=== PATIENT | female | born 1950 | race Caucasian/White ===

== ENCOUNTER 2016-03-29 07:49 | Emergency (ER) | payer MEDICARE, OTHER ==
[~2016-03-29] VITALS: Ht 162.6 cm; Wt 114.3 kg
[~2016-03-29 07:49] MED LIST: AC500T PO; ACID1TAB5 PO; ALIS1TAB6 PO; ALPR.25T PO; ALPR0.254 PO; AMLO1TAB13 PO; APIX5TAB PO; ASP81CT; ATOR40TA70 PO; ATRV10T; AZIT500T PO; CHOL500044 PO; D50KC PO; DABI150C5 PO; DEXL60CA5 PO; DIPH25TA82 PO; DOXA2TAB2 PO; ESCT10T PO; FLC150T PO; FRSM40T; FURO20TA4 PO; FURO40TA4 PO; GFN600TCR PO; HYDR-3583 PO; KCL20TCR; LACT1CAP8 PO; LEVA1.25 IH; LEVO500T69 PO; LEVO75TA57 PO; LNS30CCR; LORA10TA7 PO; LVT.05T PO; MERO500V3 IV; METO-272 PO; METO-333 PO; METO100T2 PO; METO25TA PO; METO50TA2 PO; METO50TA7; MNTL10T PO; MONT5TAB11 PO; MTP100TCR; MTP50T PO; NF-ESOM40C PO; NF-VITD400; OLME40TA16 PO; OMEP-10; OXYC500S2 PO; POTA10CA43 PO; POTA20TA8 PO; PRD20T PO; RANI150C4 PO; RIVA20TA PO; SUCR1TAB PO; VANC10VI IV; VLS80C PO; WARF6TAB PO; WRF10T PO; WRF5T PO
--- OUTSIDE RECORDS SUMMARY | 2016-03-29 07:54 | XMS REPORT | Continuity of Care Document ---
Author Author [facility] Organization [facility] Address Unknown Phone Unavailable Care Team Providers Care Intelligence Chief Name Role Phone Francisco Hernandez PCP [phone] Source Comments Some departments are not documenting in the electronic medical record. If you do not see the information that you expected, contact Release of Information in the Health Information Management department at [phone] for further assistance in locating additional records.[facility] Active Allergies and Adverse Reactions Allergen Noted Date Severity Reactions Comments Codeine 10/20/2006 Allergy recorded in SMS: Codeine~Reactions: SWELLING/HIVES Morphine 10/20/2006 Allergy recorded in SMS: Morphine~Reactions: SWELLINGL/HIVES Penicillins 10/20/2006 Allergy recorded in SMS: PCN~Reactions: TONGUE SWELLING Tetanus Vaccines And 10/20/2006 Allergy recorded in SMS: Toxoid Tetanus Current Medications Not on file Active Problems Not on file Social History Tobacco Use Types Packs/Day Years Used Date Never Assessed Plan of Care Health Maintenance Due Date Last Done Comments Physical (Comprehensive) 1957 Exam Pertussis Vaccine 1960 Tetanus Vaccine 1966 Breast Cancer Screening 1989 Colorectal Cancer 12/04/1999 Screening Shingles Vaccine 2009 Osteoporosis Screening 2014 Prevnar/Pneumovax (#1) 2014 Influenza Vaccine 10/17/2015 Results from Last 3 Months Not on file
[2016-03-29 08:12] LABS: BASOPHILS # (AUTO) 0.1 10^3/uL (0.0-0.1); BASOPHILS % (AUTO) 1 % (0-10); EOSINOPHILS # (AUTO) 0.1 10^3/uL (0.0-0.3); EOSINOPHILS % (AUTO) 1 % (0-10); LYMPHOCYTES # (AUTO) 1.5 X 10^3 (1.0-4.0); LYMPHOCYTES % (AUTO) 14 % (12-44); MEAN CORPUSCULAR HEMOGLOBIN 31 PG (25-34); MEAN CORPUSCULAR HGB CONC 34 G/DL (32-36); MEAN CORPUSCULAR VOLUME 90 FL (80-99); MEAN PLATELET VOLUME 11.7 FL (7.4-10.4); MONOCYTES # (AUTO) 0.9 X 10^3 (0.0-1.0); MONOCYTES % (AUTO) 8 % (0-12); NEUTROPHILS # (AUTO) 8.4 X 10^3 (1.8-7.8); NEUTROPHILS % (AUTO) 77 % (42-75); PLATELET COUNT 199 10^3/uL (130-400); RED BLOOD COUNT 4.76 10^6/uL (4.35-5.85); RED CELL DISTRIBUTION WIDTH 12.7 % (10.0-14.5)
--- NOTE | 2016-03-29 08:22 | ED Cough/URI ---
General Chief Complaint: Respiratory Problems Stated Complaint: SOA Nursing Triage Note: AMBULATED TO ROOM 07 WITH CONT COUGH AND SOA STARTING LAST NOC. DENIES FEVER. PT STATES SHE DID NOT SLEEP LAST NOC. Source: patient Exam Limitations: no limitations History of Present Illness Time seen by provider: 08:17 Initial Comments The patient's a 65-year-old white female known to me. She has multiple medical problems. She reported that yesterday about noon she began to cough harshly and has continued to do so throughout the night. There is also past history of multiple pneumonias events, both bacterial and fungal. She is not aware of any fever. There has been no fever or chills. There is no sputum production. Timing/Duration: yesterday Severity/Quality: moderate, dry cough Prior Episodes/Possible Cause: frequent episodes Modifying Factors: Improves With Coughing Associated Symptoms: chest pain/soreness, cough, shortness of breath Allergies and Home Medications Allergies Coded Allergies: apixaban (Verified Allergy, Severe, HIVES, 03/29/16) olmesartan (Verified Allergy, Severe, HIVES, 03/29/16) doxycycline (Verified Allergy, Intermediate, HIVES, 10/24/15) SWELLING, HIVES Penicillins (Verified Allergy, Unknown, PT CAN TAKE KEFLEX, 11/21/06) Sulfa (Sulfonamide Antibiotics) (Verified Allergy, Unknown, 08/20/06) Tetanus Vaccines and Toxoid (Verified Allergy, Unknown, 11/21/06) codeine (Verified Allergy, Unknown, 11/21/06) levofloxacin (Unverified Allergy, Unknown, HIVES, 10/24/15) CAN TAKE LONG SHE ALSO TAKES BENADRYL morphine (Verified Allergy, Unknown, 08/20/06) Home Medications Alprazolam 0.25 Mg Tablet 0.25 MG PO Q6H PRN PRN ANXIETY (Reported) Cholecalciferol (Vitamin D3) 5,000 Unit Tablet 5,000 UNIT PO DAILY (Reported) Diphenhydramine Hcl 25 Mg Tablet 25 MG PO QID PRN PRN ALLERGIC REACTION ( Reported) Doxazosin Mesylate 2 Mg Tablet #60 1 MG PO BID Prescribed by: MONIKA DO on 10/28/151818 Ergocalciferol (Vitamin D2) 50,000 Unit Capsule 50,000 UNITS PO WEEK (Reported) TAKES EVERY WEDNESDAY Furosemide 20 Mg Tablet 20 MG PO BID PRN PRN FLUID (Reported) Metoprolol Tartrate 50 Mg Tablet 50 MG PO BID PRN PRN BLOOD PRESSURE (Reported) WILL HOLD IF BLOOD PRESSURE IS TOO LOW (BOTTOM NUMBER 80 OR BELOW) Metoprolol Tartrate 25 Mg Tablet #60 12.5 MG PO BID Prescribed by: MONIKA DO on 10/28/151818 Potassium Chloride 20 Meq Tab.er.prt 20 MEQ PO BID PRN PRN WITH LASIX (Reported ) Prednisone 20 Mg Tab #45 20 MG PO UD 60mg tid x2days, 40mg tid x2days, 20mg tid x2days, 20mg bid x2days, 10mg bid x2days, 10mg daily x 2days then stop Prescribed by: MONIKA DO on 10/28/151818 Ranitidine HCl 150 Mg Capsule #60 150 MG PO BID Prescribed by: MONIKA DO on 10/28/151818 Rivaroxaban 20 Mg Tablet #30 20 MG PO DAILY@0900 Prescribed by: MONIKA DO on 10/28/151818 Constitutional: see HPI EENTM: no symptoms reported Respiratory: cough short of breath Cardiovascular: no symptoms reported Gastrointestinal: no symptoms reported Genitourinary: no symptoms reported Musculoskeletal: no symptoms reported Skin: no symptoms reported Psychiatric/Neurological: No Symptoms Reported Hematologic/Lymphatic: No Symptoms Reported Immunological/Allergic: no symptoms reported Past Lnyiqjd-Tfpfxe-Zubmlo Hx Patient Social History Alcohol Use: Denies Use Recreational Drug Use: No 2nd Hand Smoke Exposure: No Recent Foreign Travel: No Contact w/Someone Who Travel: No Recent Infectious Disease Expo: No Recent Hopitalizations: No Immunizations Up To Date Date of Pneumonia Vaccine: Oct 16, 2014 Date of Influenza Vaccine: Dec 16, 2014 Seasonal Allergies Seasonal Allergies: Yes Surgeries HX Surgeries: Yes (LAP BAND ) Surgeries: Cardiac, Gallbladder, Hysterectomy Respiratory Hx Respiratory Disorders: Yes Respiratory Disorders: Pneumonia Cardiovascular Hx Cardiac Disorders: Yes (HX OF OPEN HEART SURGERY) Cardiac Disorders: Hypertension Neurological Hx Neurological Disorders: No Reproductive System Hx Reproductive Disorders: Yes Female Reproductive Disorders: Endometriosis Genitourinary Hx Genitourinary Disorders: No Gastrointestinal Hx Gastrointestinal Disorders: No Musculoskeletal Hx Musculoskeletal Disorders: No Endocrine Hx Endocrine Disorders: No HEENT HX ENT Disorders: No Cancer Hx Cancer: No Psychosocial Hx Psychiatric Problems: Yes Behavioral Health Disorders: Anxiety Integumentary HX Skin/Integumentary Disorder: No Blood Transfusions Hx Blood Disorders: No Family Medical History Significant Family History: Cancer, Hypertension, Renal Disease Family Medial History: FH: COPD (chronic obstructive pulmonary disease) 19 MOTHER Kidney disease 19 MOTHER Physical Exam Vital Signs Vital Sign - Last 12Hours 03/29/16 07:49 Temp 96.2 Pulse 87 Resp 20 B/P 170/98 Pulse Ox 96 O2 Delivery Room Air Capillary Refill : Less Than 3 Seconds General Appearance: mild distress moderate distress Eyes: Bilateral Eye Normal Inspection HEENT: normal ENT inspection Neck: full range of motion Respiratory: chest non-tender lungs clear normal breath sounds no respiratory distress no accessory muscle use Cardiovascular: other Gastrointestinal: normal bowel sounds non tender soft no organomegaly no pulsatile mass Extremities: normal range of motion non-tender normal inspection no pedal edema no calf tenderness normal capillary refill pelvis stable Neurologic/Psychiatric: press tender long goods II-XII nml as tested no motor/sensory deficits alert normal mood/affect oriented x 3 Skin: normal color warm/dry cyanosis cool diaphoresis damp Lymphatic: no adenopathy Progress/Results/Core Measures Results/Orders Lab Results Laboratory Tests Test 03/29/16 08:05 Range/Units Alanine Aminotransferase (ALT/SGPT) 15 0-55 U/L Albumin 3.7 3.2-4.5 G/DL Alkaline Phosphatase 105 40-136 U/L Anion Gap 12 5-14 MMOL/L Aspartate Amino Transf (AST/SGOT) 15 5-34 U/L BUN/Creatinine Ratio 13 Basophils # (Auto) 0.1 0.0-0.1 10^3/uL Basophils (%) (Auto) 1 0-10 % Blood Urea Nitrogen 14 7-18 MG/DL Calcium Level 9.8 8.5-10.1 MG/DL Carbon Dioxide Level 25 21-32 MMOL/L Chloride Level 102 98-107 MMOL/L Creatinine 1.04 0.60-1.30 MG/DL Eosinophils # (Auto) 0.1 0.0-0.3 10^3/uL Eosinophils (%) (Auto) 1 0-10 % Estimat Glomerular Filtration Rate 53 Glucose Level 119 H 70-105 MG/DL Hematocrit 43 35-52 % Hemoglobin 14.5 11.5-16.0 G/DL Lymphocytes # (Auto) 1.5 1.0-4.0 X 10^3 Lymphocytes (%) (Auto) 14 12-44 % Mean Corpuscular Hemoglobin 31 25-34 PG Mean Corpuscular Hemoglobin Concent 34 32-36 G/DL Mean Corpuscular Volume 90 80-99 FL Mean Platelet Volume 11.7 H 7.4-10.4 FL Monocytes # (Auto) 0.9 0.0-1.0 X 10^3 Monocytes (%) (Auto) 8 0-12 % Neutrophils # (Auto) 8.4 H 1.8-7.8 X 10^3 Neutrophils (%) (Auto) 77 H 42-75 % Platelet Count 199 130-400 10^3/uL Potassium Level 3.3 L 3.6-5.0 MMOL/L Red Blood Count 4.76 4.35-5.85 10^6/uL Red Cell Distribution Width 12.7 10.0-14.5 % Sodium Level 139 135-145 MMOL/L Total Bilirubin 0.7 0.1-1.0 MG/DL Total Protein 6.8 6.4-8.2 G/DL White Blood Count 11.0 4.3-11.0 10^3/uL Micro Results Microbiology 03/29/16 Influenza Types A,B Antigen (DOUG) - Final, Complete My Orders Orders-DALTON SALGUERO MD Cbc With Automated Diff (03/29/16 07:55) Comprehensive Metabolic Panel (03/29/16 07:55) Chest 1 View, Ap/Pa Only (03/29/16 07:55) Influenza A And B Antigens (03/29/16 08:44) Vital Signs/I&O Vital Sign - Last 12Hours 03/29/16 07:49 Temp 96.2 Pulse 87 Resp 20 B/P 170/98 Pulse Ox 96 O2 Delivery Room Air Blood Pressure Mean: 122 Departure Communication Progress Notes Chest x-ray was negative. Influenza a and B were negative. Discussed this with Dr. Do. Impression Impression: Primary Impression: URI/viral Disposition: 01 HOME, SELF-CARE Condition: Stable/Unchanged Departure-Patient Inst. Decision time for Depature: 09:33 Referrals: MONIKA DO MD (PCP/Family) Primary Care Physician Patient Instructions: Viral Upper Respiratory Infection, Adult (DC) Add. Discharge Instructions: All discharge instructions reviewed with patient and/or family. Voiced understanding. Plenty of fluids and rest. Throat lozenges as needed Tessalon pearls twice daily Scripts Benzonatate (Tessalon Perle)100 Mg [id number] Mg PO twice a day #20 CAP Prov:DALTON SALGUERO MD 03/29/16 DALTON SALGUERO MD Mar 29, 2016 08:22
[2016-03-29 08:30] LABS: ALBUMIN 3.7 G/DL (3.2-4.5); BILIRUBIN,TOTAL 0.7 MG/DL (0.1-1.0); CALCIUM 9.8 MG/DL (8.5-10.1); CREATININE SERUM 1.04 MG/DL (0.60-1.30); POTASSIUM 3.3 MMOL/L (3.6-5.0); TOTAL PROTEIN 6.8 G/DL (6.4-8.2)
--- NOTE | 2016-03-29 08:37 | Diagnostic Imaging Report ---
EXAM: CHEST 1 VIEW, AP/PA ONLY INDICATION: Cough. Shortness of breath. COMPARISON: Chest radiographs, 10/27/2015. FINDINGS: No significant change. Cardiomegaly. Normal pulmonary vascularity. Sternotomy. Calcified granuloma in the right midlung. No pleural effusion or pneumothorax. IMPRESSION: No acute cardiopulmonary findings. Dictated by: Dictated on workstation # [id number]
[2016-03-29] MEDS ORDERED: BENZ-13 PO (09:35)
[2016-03-29 09:45] VITALS: BP 141/66
== END 2016-03-29 09:45 | disposition home or self-care (01) ==
LOC: EDUNIT# 07:49 → ER 07:50
DX: J06.9 Acute upper respiratory infection, unspecified (principal); I10 Essential (primary) hypertension; Z79.899 Other long term (current) drug therapy
CPT/HCPCS: 36415; 71010; 80053; 85025; 87804; 99283

== ENCOUNTER → 2016-09-10 | Outpatient (CLI) | payer MEDICARE, OTHER ==
[~2016-09-10] MED LIST changes: +BENZ-13 PO; -D50KC PO; +ERGO50006 PO; +GADOBUTROL 15 MMOL/15 ML (GADAVIST) VIAL IV ONE; +OLME40TA12 PO; -OLME40TA16 PO
[2016-09-10 08:43] LABS: CREATININE SERUM 0.95 MG/DL (0.60-1.30)
--- NOTE | 2016-09-10 14:14 | Diagnostic Imaging Report ---
PROCEDURE: MR imaging of the brain with and without contrast. TECHNIQUE: Multiplanar, multisequence MR imaging of the brain was performed with and without contrast. INDICATION: Loss of smell and taste. 11 mL of Gadovist is administered intravenously. FINDINGS: There is no diffusion restriction to suggest an acute infarct or other diffusion abnormality. The brain parenchyma demonstrates brain signal with only minimal T2 hyperintense signal in the periventricular and deep white matter without mass effect or enhancement suggestive of relatively mild chronic microvascular ischemic changes, commonly seen at the patient's age. There is no enhancing mass or brain edema. No hydrocephalus. The internal auditory canals and inner ear structures appear unremarkable. The central vascular flow voids appear grossly unremarkable. The pituitary gland appears unremarkable. There is prominent bone marrow signal in the sphenoid and the clivus seen. The clivus is the associated with relatively more vertical slope than usual and there is no sphenoidal sinus cavity seen. When compared to prior sinus CT scan of 01/18/2008, although the comparison is not exact, these changes appear to be present on that prior exam and are presumably chronic. There is lack of pneumatization of the inferior aspect of the left mastoid air cells. IMPRESSION: 1. No acute infarct or enhancing mass. 2. The vertical orientation of the clivus and absence of the left sphenoid sinus, presumably congenital. Dictated by: Dictated on workstation # [id number]
== END ==
LOC: RAD 08:07
PROVIDERS: ATTEND Otolaryngology Otolaryngology/Facial Plastic Surgery
DX: R43.8 Other disturbances of smell and taste (principal)
CPT/HCPCS: 36415; 70553; 82565; 84520

== ENCOUNTER → 2016-11-23 | Outpatient (CLI) | payer MEDICARE, OTHER ==
[~2016-11-23] VITALS: Ht 162.6 cm; Wt 119.7 kg
[~2016-11-23] MED LIST changes: +FAMOTIDINE 20MG/2ML IV (PEPCID) IV ONE; +FAMOTIDINE 20MG/2ML IV (PEPCID) ONE; -GADOBUTROL 15 MMOL/15 ML (GADAVIST) VIAL IV ONE; +GENTAMICIN IV ONE; +NS IV ONE; +diphenhydrAMINE 50 MG/ML INJ (BENADRYL) IV ONE; +diphenhydrAMINE 50 MG/ML INJ (BENADRYL) ONE
[2016-11-23 14:02] VITALS: BP 133/57
[2016-11-23 15:46] VITALS: BP 133/57
== END ==
LOC: SDC 13:29
PROVIDERS: ATTEND Family Medicine
DX: N39.0 Urinary tract infection, site not specified (principal); B96.20 Unspecified Escherichia coli [E. coli] as the cause of diseases classified elsewhere
CPT/HCPCS: 96365; 96375

== ENCOUNTER → 2017-01-12 | Outpatient (CLI) | payer MEDICARE, OTHER ==
[~2017-01-12] VITALS: Ht 162.6 cm; Wt 119.7 kg
[~2017-01-12] MED LIST changes: -FAMOTIDINE 20MG/2ML IV (PEPCID) IV ONE; -FAMOTIDINE 20MG/2ML IV (PEPCID) ONE; -GENTAMICIN IV ONE; +NS IV 1000 ML 1,000 ML IV NR; +NS IV 1000 ML 1,000 ML ONE; -NS IV ONE; +ONDANSETRON 4 MG/2 ML (SDV) Z0FRAN IV NR; +ONDANSETRON 4 MG/2 ML (SDV) Z0FRAN IVP ONE; +ONDANSETRON 4 MG/2 ML (SDV) Z0FRAN ONE; -diphenhydrAMINE 50 MG/ML INJ (BENADRYL) IV ONE; -diphenhydrAMINE 50 MG/ML INJ (BENADRYL) ONE
[2017-01-12 11:56] LABS: MEAN PLATELET VOLUME 12.3 FL (7.4-10.4); RED BLOOD COUNT 4.56 10^6/uL (4.35-5.85); RED CELL DISTRIBUTION WIDTH 12.9 % (10.0-14.5); WHITE BLOOD COUNT 8.2 10^3/uL (4.3-11.0)
[2017-01-12 11:58] VITALS: BP 130/115
[2017-01-12 12:20] LABS: CALCIUM 9.9 MG/DL (8.5-10.1); CREATININE SERUM 0.95 MG/DL (0.60-1.30); MAGNESIUM 1.8 MG/DL (1.8-2.4); PHOSPHORUS 1.7 MG/DL (2.3-4.7); POTASSIUM 2.8 MMOL/L (3.6-5.0)
[2017-01-12 12:21] LABS: ALBUMIN 3.8 GM/DL (3.2-4.5); BILIRUBIN,TOTAL 0.9 MG/DL (0.1-1.0); TOTAL PROTEIN 6.9 GM/DL (6.4-8.2)
[2017-01-12 13:00] VITALS: BP 130/115
[2017-01-12 16:49] VITALS: BP 130/115
== END ==
LOC: SDC 11:26
PROVIDERS: ATTEND Family Medicine
DX: D64.9 Anemia, unspecified (principal); R11.2 Nausea with vomiting, unspecified; I95.9 Hypotension, unspecified
CPT/HCPCS: 36415; 80053; 83735; 84100; 85027; 96360; 96361; 96375

== ENCOUNTER 2017-12-29 09:43 | Emergency (ER) | payer OTHER, MEDICARE ==
[~2017-12-29] VITALS: Ht 162.6 cm; Wt 119.7 kg
[~2017-12-29 09:43] MED LIST changes: -BENZ-13 PO; +BENZ100C18 PO; +METO50TA15 PO; -METO50TA2 PO; -NS IV 1000 ML 1,000 ML IV NR; -NS IV 1000 ML 1,000 ML ONE; -ONDANSETRON 4 MG/2 ML (SDV) Z0FRAN IV NR; -ONDANSETRON 4 MG/2 ML (SDV) Z0FRAN IVP ONE; -ONDANSETRON 4 MG/2 ML (SDV) Z0FRAN ONE
[2017-12-29] MEDS ORDERED: LORazepam INJ 2 MG/ML (ATIVAN) VIAL IVP ONE (10:00)
[2017-12-29] MEDS ORDERED: fentaNYL INJECTION 100 MCG/2 ML AMP IVP ONE (10:00)
[2017-12-29] MEDS ORDERED: ONDANSETRON 4 MG/2 ML (SDV) Z0FRAN IVP ONE (10:00)
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
[2017-12-29 10:11] LABS: HEMOGLOBIN 14.9 G/DL (11.5-16.0); RED BLOOD COUNT 4.78 10^6/uL (4.35-5.85); RED CELL DISTRIBUTION WIDTH 12.7 % (10.0-14.5)
[2017-12-29 10:28] LABS: ALANINE AMINOTRANSFERASE 16 U/L (0-55); ALBUMIN 4.1 GM/DL (3.2-4.5); ALKALINE PHOSPHATASE 122 U/L (40-136); BILIRUBIN,DIRECT 0.2 MG/DL (0.0-0.3); BILIRUBIN,INDIRECT 0.4 MG/DL; BILIRUBIN,TOTAL 0.6 MG/DL (0.1-1.0); BUN/CREATININE RATIO 10; CARBON DIOXIDE 26 MMOL/L (21-32); CHLORIDE 105 MMOL/L (98-107); CREATININE SERUM 1.15 MG/DL (0.60-1.30); GFR ESTIMATED 47; GLUCOSE 111 MG/DL (70-105); SODIUM 140 MMOL/L (135-145); TOTAL PROTEIN 7.6 GM/DL (6.4-8.2)
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
--- NOTE | 2017-12-29 10:38 | Diagnostic Imaging Report ---
PROCEDURE: CT head and CT cervical spine without contrast. TECHNIQUE: Multiple contiguous axial images were obtained through the brain and cervical spine without the use of intravenous contrast. Sagittal and coronal reformations through the cervical spine were then performed. INDICATION: Fall. No prior studies are available for comparison. CT head: The ventricles and sulci are within normal limits. No sulcal effacement, midline shift or hemorrhage is detected. The cisterns are patent. Visualized paranasal sinuses are clear. IMPRESSION: No acute intracranial process is detected. CT cervical spine: Alignment is normal. No fracture or subluxation is identified. There is generalized degenerative disc disease with variable disc space narrowing and marginal spurring. The odontoid is intact. IMPRESSION: Cervical spondylosis. No acute bony abnormality is detected. Dictated by: Dictated on workstation # [id number]
[2017-12-29 10:51] LABS: BILIRUBIN,URINE NEGATIVE (NEGATIVE); CLARITY,URINE CLEAR; COLOR,URINE YELLOW; GLUCOSE, URINE (UA) NEGATIVE (NEGATIVE); KETONES,URINE NEGATIVE (NEGATIVE); LEUKOCYTE ESTERASE ,URINE 3+ (NEGATIVE); NITRITE,URINE NEGATIVE (NEGATIVE); PH,URINE 7 (5-9); PROTEIN,URINE 1+ (NEGATIVE); UROBILINOGEN,URINE NORMAL (NORMAL)
[2017-12-29 11:04] LABS: BACTERIA,URINE MODERATE /HPF; HYALINE CASTS, URINE RARE /LPF; RBC,URINE RARE /HPF
[2017-12-29] MEDS ORDERED: NITR100C PO (11:21)
[2017-12-29] MEDS ORDERED: CYCL10TA9 PO (11:21)
[2017-12-29] MEDS ORDERED: TRAM50TA2 PO (11:25)
[2017-12-29 11:28] VITALS: BP 124/63
--- OUTSIDE RECORDS SUMMARY | 2017-12-29 12:14 | XMS REPORT | Clinical Summary ---
Author Author [facility] Organization [facility] Address Unknown Phone Unavailable Care Team Providers Care Vice President Risk Management Name Role Phone PCP Unavailable Allergies Not on File Current Medications Not on file Active Problems Not on file Social History Tobacco Use Types Packs/Day Years Used Date Never Assessed Sex Assigned at Date Recorded Not on file Last Filed Vital Signs Not on file Plan of Treatment Not on file Results Not on filefrom Last 3 Months
--- OUTSIDE RECORDS SUMMARY | 2017-12-29 12:14 | XMS REPORT | Clinical Summary ---
Author Author [facility] Organization [facility] Address Unknown Phone Unavailable Care Team Providers Care Student Loan Counselor Name Role Phone Francisco Hernandez MD PCP Source Comments Some departments are not documenting in the electronic medical record. If you do not see the information that you expected, contact Release of Information in the Health Information Management department at [phone] for further assistance in locating additional records.[facility] Allergies Active Allergy Reactions Severity Noted Date Comments Codeine 10/20/2006 Allergy recorded in SMS: [...] Signs Not on file Plan of Treatment Health Maintenance Due Date Last Done Comments HEPATITIS C SCREENING 1950 PHYSICAL (COMPREHENSIVE) 1956 EXAM PERTUSSIS VACCINE 1960 TETANUS VACCINE 1966 BREAST CANCER SCREENING 1989 COLORECTAL CANCER 12/04/1999 SCREENING SHINGLES RECOMBINANT 12/04/1999 VACCINE (1 of 2) OSTEOPOROSIS 2014 SCREENING/MONITORING PNEUMONIA (PCV13/PPSV23) 2014 VACCINES (1 of 2 - PCV13) INFLUENZA VACCINE 09/15/2017 Results Not on filefrom Last 3 Months
--- OUTSIDE RECORDS SUMMARY | 2017-12-29 12:20 | XMS REPORT | CCD ---
Author Author [facility] Address [address] [place] [address] Phone Care Team Providers [facility] Pastor Name Role Phone PP Unavailable CCM Unavailable Summary Purpose Interface Exchange Insurance Providers Payer name Policy type / Coverage type Covered green party ID Effective Begin Date Effective End Date WPS Medicare Part B [id number] 2015 Unknown [employer] [id number] 2015 Unknown Family history Father Diagnosis Age At Onset No Family Disease Entered N/A Runs in the family Diagnosis Age At Onset Diabetes Unknown Mother Diagnosis Age At Onset No Family Disease Entered N/A Social History Social History Element Codes Description Effective Dates Employment Unknown 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 Unknown Has never used illegal drugs 11/06/2010 Allergies, Adverse Reactions, Alerts Substance Reaction Codes Entered Date Inactivated Date Status cephalexin angioedema RxNorm: 2231 06/04/2011 No Inactive Date Active MORPHINE AND RELATED angioedema Unknown 06/04/2011 No Inactive Date Active Penicillin angioedema Unknown 06/04/2011 No Inactive Date Active Past Medical History Illness Codes Condition Status Onset Date Resolved Date Encounter for immunization ICD-9: V03.9 ICD-10: Z23 Active 03/15/2017 Unknown Essential (primary) hypertension ICD-9: 401.9 ICD-10: I10 Active 01/11/2017 Unknown Dysuria ICD-9: 788.1 ICD-10: R30.0 Active 09/23/2015 Unknown Urinary tract infection, site not specified ICD-9: 599.0 ICD-10: N39.0 Active 12/31/2016 Unknown Encounter for immunization ICD-9: V04.81 ICD-10: Z23 Active 11/12/2015 Unknown Other injury of unspecified body region ICD-9: 879.8 ICD-10: T14.8 Active 10/08/2016 Unknown Vitamin D deficiency, unspecified ICD-9: 268.9 ICD-10: E55.9 Active 06/10/2015 Unknown Laceration without foreign body of right hand, initial encounter ICD-9: 882.0 ICD-10: S61.411A Active 07/20/2016 Unknown Depression Unknown Resolved 12/09/2015 Unknown Encounter for general adult medical examination with abnormal findings ICD-9: V70.0 ICD-10: Z00.01 Active 12/08/2015 Unknown DEPRESSIVE DISORDER NEC ICD-9: 311 Resolved 12/09/2015 Unknown Cramp and spasm ICD-9 : 729.82 ICD-10: R25.2 Active 10/14/2015 Unknown Other vitamin B12 deficiency anemias ICD-9: 281.1 ICD-10: D51.8 Active 09/12/2015 Unknown Laceration without foreign body of right forearm, initial encounter ICD-9: 881.00 ICD-10: S51.811A Active 09/08/2015 Unknown Localized edema ICD-9 : 782.3 ICD-10: R60.0 Active 09/04/2015 Unknown Cellulitis of right upper limb ICD-9: 682.3 ICD-10: L03.113 Active 08/01/2015 Unknown Hypothyroidism, unspecified ICD-9: 244.9 ICD-10: E03.9 Active 06/10/2015 Unknown Other acute sinusitis ICD-9: 461.9 ICD-10: J01.80 Active 03/17/2011 Unknown Allergic rhinitis, unspecified ICD-9: 477.9 ICD-10: J30.9 Active 12/10/2014 Unknown Other screening mammogram ICD-9: V76.12 Active 11/11/2014 Unknown DYSURIA ICD-9: 788.1 Active 07/29/2014 Unknown Dyspnea ICD-9: 786.09 Active 10/23/2013 Unknown EDEMA ICD-9: 782.3 Active 10/23/2013 Unknown Encounter for long-term (current) use of other medications ICD-9: V58.69 Active 04/12/2013 Unknown Lumbago ICD-9: 724.2 Active 01/05/2013 Unknown Spasm of muscle ICD-9 : 728.85 Active 01/05/2013 Unknown Chest pain ICD-9: 786.50 Active 12/21/2011 Unknown Immunization, pneumococcus and influenza ICD-9: V06.6 Active Unknown Lesion of lip ICD-9: 528.5 Active 10/21/2011 Unknown Aneurysm, splenic artery ICD-9: 442.83 Active 09/02/2011 Unknown Hematuria ICD-9: 599.70 Active 09/02/2011 Unknown LUQ abdominal pain ICD -9: 789.02 Active 09/02/2011 Unknown ALLERGIC RHINITIS ICD- 9: 477.9 Active 08/10/2011 Unknown Benign essential tremor syndrome ICD-9: 333.1 Active 2011 Unknown Chronic sinusitis ICD- 9: 473.9 Active 07/14/2011 Unknown Congestion of throat ICD-9: 784.99 Active 07/14/2011 Unknown Otalgia ICD-9: 388.70 Active 07/14/2011 Unknown Hoarse ICD-9: 784.42 Active 06/25/2011 Unknown Hypoxemia ICD-9: 799.02 Active 06/16/2011 Unknown Pneumonia ICD-9: 486 Active 06/16/2011 Unknown Diarrhea ICD-9: 787.91 Active 06/15/2011 Unknown BACTERIAL PNEUMONIA ICD-9: 482.9 Active 06/04/2011 Unknown Cough ICD-9: 786.2 Active 06/04/2011 Unknown Fatigue ICD-9: 780.79 Active 06/04/2011 Unknown Knee pain, acute ICD-9 : 719.46 Active 05/05/2011 Unknown Atrial fibrillation ICD-9: 427.31 Active 04/07/2011 Unknown ACUTE SINUSITIS ICD-9 : 461.9 Active 03/17/2011 Unknown 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 03/17/2011 Unknown Obesity ICD-9: 278.00 Active 03/17/2011 Unknown Actinic keratosis ICD- 9: 702.0 Active 01/21/2011 Unknown Encounter for general adult medical examination with abnormal findings ICD-9: V70.0 Active 01/21/2011 Unknown Hypothryroidism Unknown Active 11/25/2010 Unknown Abnormal blood sugar ICD-9: 790.29 Active 11/25/2010 Unknown HYPERLIPIDEMIA ICD-9: 272.4 Active 11/25/2010 Unknown HYPOTHYROIDISM ICD-9: 244.9 Active 11/25/2010 Unknown ACUTE URI ICD-9: 465.9 Active 11/20/2010 Unknown ESSENTIAL HYPERTENSION ICD-9: 401.9 Active 11/20/2010 Unknown Anxiety Unknown Active 11/06/2010 Unknown Atrial fibrillation Unknown Active 11/06/2010 Unknown Chronic anticoagulation Unknown Active 11/06/2010 Unknown Gastroesophageal reflux disease Unknown Active 11/06/2010 Unknown Hyperlipidemia Unknown Active 11/06/2010 Unknown Hypertension Unknown Active 11/06/2010 Unknown Obesity Unknown Active 11/06/2010 Unknown ACUTE MAXILLARY SINUSITIS ICD-9: 461.0 Active 11/06/2010 Unknown Problems Condition Codes Effective Dates Condition Status Encounter for immunization ICD-9: V03.9 ICD-10: Z23 03/15/2017 Active Essential (primary) hypertension ICD-9: 401.9 ICD-10: I10 01/11/2017 Active Dysuria ICD-9: 788.1 ICD-10: R30.0 09/23/2015 Active Urinary tract infection, site not specified ICD-9: 599.0 ICD-10: N39.0 12/31/2016 Active Encounter for immunization ICD-9: V04.81 ICD-10: Z23 11/12/2015 Active Other injury of unspecified body region ICD-9: 879.8 ICD-10: T14.8 10/08/2016 Active Vitamin D deficiency, unspecified ICD-9: 268.9 ICD-10: E55.9 06/10/2015 Active Laceration without foreign body of right hand, initial encounter ICD-9: 882.0 ICD-10: S61.411A 07/20/2016 Active Depression Unknown 12/09/2015 Resolved Encounter for general adult medical examination with abnormal findings ICD-9: V70.0 ICD-10: Z00.01 12/08/2015 Active DEPRESSIVE DISORDER NEC ICD-9: 311 12/09/2015 Resolved Cramp and spasm ICD-9 : 729.82 ICD-10: R25.2 10/14/2015 Active Other vitamin B12 deficiency anemias ICD-9: 281.1 ICD-10: D51.8 09/12/2015 Active Laceration without foreign body of right forearm, initial encounter ICD-9: 881.00 ICD-10: S51.811A 09/08/2015 Active Localized edema ICD-9 : 782.3 ICD-10: R60.0 09/04/2015 Active Cellulitis of right upper limb ICD-9: 682.3 ICD-10: L03.113 08/01/2015 Active Hypothyroidism, unspecified ICD-9: 244.9 ICD-10: E03.9 06/10/2015 Active Other acute sinusitis ICD-9: 461.9 ICD-10: J01.80 03/17/2011 Active Allergic rhinitis, unspecified ICD-9: 477.9 ICD-10: J30.9 12/10/2014 Active Other screening mammogram ICD-9: V76.12 11/11/2014 Active DYSURIA ICD-9: 788.1 07/29/2014 Active Dyspnea ICD-9: 786.09 10/23/2013 Active EDEMA ICD-9: 782.3 10/23/2013 Active Encounter for long-term (current) use of other medications ICD-9: V58.69 2013 Active Lumbago ICD-9: 724.2 01/05/2013 Active Spasm of muscle ICD-9 : 728.85 01/05/2013 Active Chest pain ICD-9: 786.50 12/21/2011 Active Immunization, pneumococcus and influenza ICD-9: V06.6 11/11/2011 Active Lesion of lip ICD-9: 528.5 10/21/2011 Active Aneurysm, splenic artery ICD-9: 442.83 09/02/2011 Active Hematuria ICD-9: 599.70 09/02/2011 Active LUQ abdominal pain ICD -9: 789.02 09/02/2011 Active ALLERGIC RHINITIS ICD- 9: 477.9 08/10/2011 Active Benign essential tremor syndrome ICD-9: 333.1 07/14/2011 Active Chronic sinusitis ICD- 9: 473.9 07/14/2011 Active Congestion of throat ICD-9: 784.99 07/14/2011 Active Otalgia ICD-9: 388.70 07/14/2011 Active Hoarse ICD-9: 784.42 06/25/2011 Active Hypoxemia ICD-9: 799.02 06/16/2011 Active Pneumonia ICD-9: 486 06/16/2011 Active Diarrhea ICD-9: 787.91 06/15/2011 Active BACTERIAL PNEUMONIA ICD-9: 482.9 06/04/2011 Active Cough ICD-9: 786.2 06/04/2011 Active Fatigue ICD-9: 780.79 06/04/2011 Active Knee pain, acute ICD-9 : 719.46 05/05/2011 Active Atrial fibrillation ICD-9: 427.31 04/07/2011 Active ACUTE SINUSITIS ICD-9 : 461.9 03/17/2011 Active 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 03/17/2011 Active Obesity ICD-9: 278.00 03/17/2011 Active Actinic keratosis ICD- 9: 702.0 01/21/2011 Active Encounter for general adult medical examination with abnormal findings ICD-9: V70.0 01/21/2011 Active Hypothryroidism Unknown 11/25/2010 Active Abnormal blood sugar ICD-9: 790.29 11/25/2010 Active HYPERLIPIDEMIA ICD-9: 272.4 11/25/2010 Active HYPOTHYROIDISM ICD-9: 244.9 11/25/2010 Active ACUTE URI ICD-9: 465.9 11/20/2010 Active ESSENTIAL HYPERTENSION ICD-9: 401.9 11/20/2010 Active Anxiety Unknown 11/06/2010 Active Atrial fibrillation Unknown 11/06/2010 Active Chronic anticoagulation Unknown 11/06/2010 Active Gastroesophageal reflux disease Unknown 11/06/2010 Active Hyperlipidemia Unknown 11/06/2010 Active Hypertension Unknown 11/06/2010 Active Obesity Unknown 11/06/2010 Active ACUTE MAXILLARY SINUSITIS ICD-9: 461.0 11/06/2010 Active Medications Medication Codes Instructions Start Date Stop Date Status Fill Instructions Lexapro 10 mg tablet RxNorm: 400956 1 Tablet(s) PO QHS 201607/10/2017 Active Lexapro 10 mg tablet RxNorm: 965370 1 Tablet(s) PO QHS 201601/11/2017 Inactive famotidine 20 mg tablet RxNorm: 626533 1 Tablet(s) PO BID 01/0607/04/2017 Active famotidine 20 mg tablet RxNorm: 362974 1 Tablet(s) PO BID 01/0601/05/2017 Inactive doxazosin 2 mg tablet RxNorm: 543654 TAKE ONE-HALF TABLET BY MOUTH TWICE DAILY 12/17/2016 No Stop Date Active Xanax 0.25 mg tablet RxNorm: 772268 Tablet(s) PO TAKE ONE TABLET BY MOUTH EVERY 4 TO 6 HOURS NEEDED 11/12/20162016 Inactive Xanax 0.25 mg tablet RxNorm: 679891 Tablet(s) PO TAKE ONE TABLET BY MOUTH EVERY 4 TO 6 HOURS NEEDED 11/12/20162016 Inactive Pyridium 200 mg tablet RxNorm: 6081260 1 Tablet(s) PO TID PRN 10/29/2016 No Stop Date Active Levaquin 500 mg tablet RxNorm: 013401 1 Tablet(s) PO daily 10/28/2016 Inactive Levaquin 500 mg tablet RxNorm: 884196 1 Tablet(s) PO daily 11/04/2016 Inactive potassium chloride ER 10 mEq tablet,extended release RxNorm: 866347 2 Capsule(s) PO BID 10/20/2016 02/16/2017 Inactive potassium chloride ER 10 mEq tablet,extended release RxNorm: 583134 2 Capsule(s) PO BID 10/16/2016 10/19/2016 Inactive potassium chloride ER 10 mEq tablet,extended release RxNorm: 496008 1 Capsule(s) PO daily 10/15/2016 10/15/2016 Inactive potassium chloride 40 mEq/15 mL oral liquid RxNorm: 662817 7.5 Milliliter(s) PO BID 10/05/2016 10/11/2016 Inactive potassium chloride 40 mEq/15 mL oral liquid RxNorm: 082860 7.5 Milliliter(s) PO BID 10/05/2016 10/04/2016 Inactive potassium chloride 40 mEq/15 mL oral liquid RxNorm: 461744 7.5 Milliliter(s) PO BID 10/05/2016 10/04/2016 Inactive doxycycline hyclate 100 mg tablet RxNorm: 567426 1 Tablet(s) PO BID 09/30/2016 10/09/2016 Inactive Vitamin D2 50,000 unit capsule RxNorm: 325372 1 Capsule(s) PO QW 09/15/2016 09/14/2016 Inactive Vitamin D2 50,000 unit capsule RxNorm: 258806 1 Capsule(s) PO QW 09/15/2016 12/13/2016 Inactive doxycycline hyclate 100 mg tablet RxNorm: 106990 1 Tablet(s) PO BID 08/11/2016 08/24/2016 Inactive doxycycline hyclate 100 mg tablet RxNorm: 510223 1 Tablet(s) PO BID 07/24/2016 07/28/2016 Inactive mupirocin 2 % topical ointment RxNorm: 071429 1 Application TOP BID 07/24/2016 07/23/2016 Inactive mupirocin 2 % topical ointment RxNorm: 707998 1 Application TOP BID 07/24/2016 07/30/2016 Inactive doxycycline hyclate 100 mg tablet RxNorm: 066006 1 Tablet(s) PO BID 07/24/2016 07/23/2016 Inactive potassium chloride ER 10 mEq tablet,extended release RxNorm: 481234 2 Tablet(s) PO BID 07/20/2016 10/04/2016 Inactive Lasix 20 mg tablet RxNorm: 330590 1 Tablet(s) PO PRN 2016 No Stop Date Active PRN for swelling Xanax 0.25 mg tablet RxNorm: 256515 Tablet(s) PO TAKE ONE TABLET BY MOUTH EVERY 4 TO 6 HOURS NEEDED 06/19/20162016 Inactive prednisone 20 mg tablet RxNorm: 259659 1 Tablet(s) PO BID 06/0306/07/2016 Inactive potassium chloride ER 10 mEq tablet,extended release RxNorm: 778666 2 Tablet(s) PO BID 05/06/2016 05/05/2016 Inactive potassium chloride ER 10 mEq tablet,extended release RxNorm: 733315 2 Tablet(s) PO BID 05/06/2016 06/04/2016 Inactive Levaquin 500 mg tablet RxNorm: 426277 1 Tablet(s) PO daily 03/30/2016 Inactive Levaquin 500 mg tablet RxNorm: 364918 1 Tablet(s) PO daily 04/06/2016 Inactive prednisone 20 mg tablet RxNorm: 824923 1 Tablet(s) PO BID 02/2402/29/2016 Inactive prednisone 20 mg tablet RxNorm: 646947 1 Tablet(s) PO BID 02/2402/24/2016 Inactive Flonase 50 mcg/actuation nasal spray,suspension RxNorm: 9720848 2 Kelly NASAL daily 02/18/2016 02/27/2016 Inactive doxycycline hyclate 100 mg tablet RxNorm: 359280 1 Tablet(s) PO BID 02/18/2016 02/27/2016 Inactive doxycycline hyclate 100 mg tablet RxNorm: 665956 1 Tablet(s) PO BID 02/18/2016 02/17/2016 Inactive cyclobenzaprine 5 mg tablet RxNorm: 915407 1-2 Tablet(s) PO TID as needed 02/12/2016 02/21/2016 Inactive cyclobenzaprine 5 mg tablet RxNorm: 811653 1-2 Tablet(s) PO TID as needed 02/12/2016 02/11/2016 Inactive Xanax 0.25 mg tablet RxNorm: 401829 Tablet(s) PO TAKE ONE TABLET BY MOUTH EVERY 4 TO 6 HOURS NEEDED 01/20/20162016 Inactive (Appended: Controlled substance eRx refill - RxReferenceNumber: [id number]) metoprolol tartrate 25 mg tablet RxNorm: 613467 1/2 Tablet(s) PO BID 12/13/2015 04/10/2016 Inactive doxazosin 2 mg tablet RxNorm: 802967 1 Tablet(s) PO QHS 201512/16/2016 Inactive metoprolol tartrate 25 mg tablet RxNorm: 552688 1/2 Tablet(s) PO BID 12/09/2015 12/12/2015 Inactive Vitamin D2 50,000 unit capsule RxNorm: 677997 1 Capsule(s) PO QW 12/09/2015 02/06/2016 Inactive Lasix 20 mg tablet RxNorm: 308581 1 Tablet(s) PO PRN 201507/05/2016 Inactive PRN for swelling potassium chloride ER 20 mEq tablet,extended release RxNorm: 785838 1 Tablet(s) PO daily as needed When taking lasix 10/03/2015 04/26/2016 Inactive cyanocobalamin (vit B-12) 1,000 mcg/mL injection solution RxNorm: 184650 Milliliter(s) Inj 09/13/2015 09/13/2015 Inactive doxycycline hyclate 100 mg tablet RxNorm: 399660 1 Tablet(s) PO BID 09/12/2015 09/18/2015 Inactive potassium chloride ER 10 mEq tablet,extended release RxNorm: 814175 1 Tablet(s) PO daily as needed When taking lasix 09/04/2015 10/02/2015 Inactive Lasix 20 mg tablet RxNorm: 764678 1 Tablet(s) PO PRN 201510/02/2015 Inactive PRN for swelling doxycycline hyclate 100 mg tablet RxNorm: 074951 1 Tablet(s) PO BID 08/26/2015 08/25/2015 Inactive doxycycline hyclate 100 mg tablet RxNorm: 810593 1 Tablet(s) PO BID 08/26/2015 09/01/2015 Inactive mupirocin 2 % topical ointment RxNorm: 899981 1 Application TOP BID 08/02/2015 08/01/2015 Inactive mupirocin 2 % topical ointment RxNorm: 634784 1 Application TOP BID 08/02/2015 08/08/2015 Inactive metoprolol tartrate 50 mg tablet RxNorm: 856724 2 tabs in morning and 1 tablet at night dose PO as directed 06/13/201510/23 Inactive 2 tabs in the morning, and 1 in the evening Benicar 40 mg tablet RxNorm: 764279 1 Tablet(s) PO daily 201510/21/2015 Inactive Benicar 40 mg tablet RxNorm: 544028 1 Tablet(s) PO daily 201506/12/2015 Inactive Vitamin D2 50,000 unit capsule RxNorm: 154968 1 Capsule(s) PO QW 06/11/2015 12/07/2015 Inactive Xanax 0.25 mg tablet RxNorm: 446348 Tablet(s) PO TAKE ONE TABLET BY MOUTH EVERY 4 TO 6 HOURS NEEDED 06/06/20152015 Inactive (Appended: Controlled substance eRx refill - RxReferenceNumber: [id number]) Levaquin 500 mg tablet RxNorm: 640660 1 Tablet(s) PO daily 11/201510/28/2015 Inactive Kenalog 40 mg/mL suspension for injection RxNorm: 8008042 Milliliter(s) Inj 03/27/2015 03/27/2015 Inactive Kenalog 40 mg/mL suspension for injection RxNorm: 8875146 Milliliter(s) Inj 12/11/2014 12/11/2014 Inactive Vitamin D2 50,000 unit capsule RxNorm: 615451 1 Capsule(s) PO QW 12/05/2014 06/02/2015 Inactive [SAVINGS FOR NON-COVERED DRUGS -- BIN:085946, PCN: ASPROD1, Group: XXXXX, ID# [id number], Questions: . THIS IS NOT INSURANCE.] Pradaxa 150 mg capsule RxNorm: 3917211 Capsule(s) PO BID 201409/08/2015 Inactive TAKE 1 CAPSULE BY MOUTH TWICE DAILY Vitamin D2 50,000 unit capsule RxNorm: 538688 1 Capsule(s) PO QW 12/04/2014 12/04/2014 Inactive [SAVINGS FOR NON-COVERED DRUGS -- BIN:039171, PCN: ASPROD1, Group: XXXXX, ID# [id number], Questions: . THIS IS NOT INSURANCE.] Lasix 20 mg tablet RxNorm: 580603 1 Tablet(s) PO PRN 201411/25/2014 Inactive PRN for swelling Levaquin 500 mg tablet RxNorm: 118580 1 Tablet(s) PO daily 01/201511/25/2014 Inactive Levaquin 500 mg tablet RxNorm: 731327 1 Tablet(s) PO daily 01/201512/02/2014 Inactive Lasix 20 mg tablet RxNorm: 809157 1 Tablet(s) PO PRN 201409/03/2015 Inactive PRN for swelling nitrofurantoin 100 mg capsule RxNorm: 911264 1 Capsule(s) PO BID 11/12/2014 11/17/2014 Inactive Macrobid 100 mg capsule RxNorm: 490466 1 Capsule(s) PO BID 11/18/2014 Inactive Macrobid 100 mg capsule RxNorm: 043736 1 Capsule(s) PO BID 11/11/2014 Inactive Levaquin 500 mg tablet RxNorm: 016366 1 Tablet(s) PO daily 11/11/2014 Inactive metoprolol tartrate 50 mg tablet RxNorm: 825777 2 tabs in morning and 1 tablet at night dose PO as directed 10/25/201405/21 Inactive 2 tabs in the morning, and 1 in the evening Xanax 0.25 mg tablet RxNorm: 623445 Tablet(s) PO TAKE ONE TABLET BY MOUTH EVERY 4 TO 6 HOURS NEEDED 08/30/20142014 Inactive (Appended: Controlled substance eRx refill - RxReferenceNumber: [id number]) Levaquin 500 mg tablet RxNorm: 913878 1 Tablet(s) PO daily 07/31/2014 Inactive Levaquin 500 mg tablet RxNorm: 577407 1 Tablet(s) PO daily 08/07/2014 Inactive Vitamin D2 50,000 unit capsule RxNorm: 530357 1 Capsule(s) PO QW 05/16/2014 2014 Inactive [SAVINGS FOR NON-COVERED DRUGS -- BIN:480449, PCN: ASPROD1, Group: XXXXX, ID# [id number], Questions: . THIS IS NOT INSURANCE.] Zithromax 500 mg tablet RxNorm: 729597 1 Tablet(s) PO daily 05/10/2014 Inactive Zithromax 500 mg tablet RxNorm: 414224 1 Tablet(s) PO daily 05/15/2014 Inactive [SAVINGS FOR NON-COVERED DRUGS -- BIN:863237, PCN: ASPROD1, Group: XXXXX, ID# [id number], Questions: . THIS IS NOT INSURANCE.] prednisone 20 mg tablet RxNorm: 826300 Tablet(s) PO 3daily x 2days, then 2daily x2days, then 1daily x2days, then 1/2 daily x 2days then stop 03/13/2014 2014 Inactive [SAVINGS FOR UNINSURED PATIENTS -- BIN:563710, PCN: ASPROD1, Group: [id number], ID# [id number], Process claim through [employer], for questions: [phone]. THIS IS NOT INSURANCE.] Levaquin 500 mg tablet RxNorm: 022489 1 Tablet(s) PO daily TAKE ONE TABLET BY MOUTH ONCE DAILY take with benadryl 03/13/2014 03/22/2014 Inactive [SAVINGS FOR UNINSURED PATIENTS -- BIN:824713, PCN: ASPROD1, Group: [id number], ID# [id number], Process claim through [employer], for questions: . THIS IS NOT INSURANCE.] Levaquin 500 mg tablet RxNorm: 696848 1 Tablet(s) PO daily TAKE ONE TABLET BY MOUTH ONCE DAILY take with benadryl 02/26/2014 03/07/2014 Inactive pt to case picker today 01/06/14 [SAVINGS FOR UNINSURED PATIENTS -- BIN:196264, PCN: ASPROD1, Group: [id number], ID# [id number], Process claim through [employer], for questions: [phone]. THIS IS NOT INSURANCE.] Xanax 0.25 mg tablet RxNorm: 044747 Tablet(s) PO TAKE ONE TABLET BY MOUTH EVERY 4 TO 6 HOURS NEEDED 02/05/20142013 Inactive (Appended: Controlled substance eRx refill - RxReferenceNumber: [id number]) prednisone 20 mg tablet RxNorm: 386828 2 Tablet(s) PO QAM 01/0601/10/2014 Inactive call pt when ready for case picker today 01/06/14 Levaquin 500 mg tablet RxNorm: 990950 1 Tablet(s) PO daily TAKE ONE TABLET BY MOUTH ONCE DAILY take with benadryl 01/06/2014 01/12/2014 Inactive pt to case picker today 01/06/14 prednisone 20 mg tablet RxNorm: 746039 Tablet(s) PO 3daily x 2days, then 2daily x2days, then 1daily x2days, then 1/2 daily x 2days then stop 12/13/2013 03/12/2014 Inactive Levaquin 500 mg tablet RxNorm: 876134 1 Tablet(s) PO daily TAKE ONE TABLET BY MOUTH ONCE DAILY take with benadryl 12/13/2013 12/19/2013 Inactive Vitamin D2 50,000 unit capsule RxNorm: 608684 1 Capsule(s) PO QW 12/12/2013 03/11/2014 Inactive weekly x 12 weeks Vitamin D2 50,000 unit capsule RxNorm: 924622 1 Capsule(s) PO QW 12/12/2013 12/11/2013 Inactive metoprolol tartrate 50 mg tablet RxNorm: 347897 2 tabs in morning and 1 tablet at night dose PO as directed 11/03/201305/31 Inactive 2 tabs in the morning, and 1 in the evening Bactroban 2 % topical ointment RxNorm: 539058 1 Application TOP BID 10/30/2013 11/08/2013 Inactive Bactroban 2 % topical ointment RxNorm: 941742 1 Application TOP BID 10/30/2013 10/29/2013 Inactive Lasix 40 mg tablet RxNorm: 617592 1 Tablet(s) PO daily as needed 10/23/2013 2014 Inactive metoprolol tartrate 50 mg tablet RxNorm: 360478 1 Tablet(s) PO BID 08/28/2013 09/26/2013 Inactive 2 tabs in the morning, and 1 in the evening metoprolol tartrate 50 mg tablet RxNorm: 016029 1 Tablet(s) PO BID 08/28/2013 08/27/2013 Inactive 2 tabs in the morning, and 1 in the evening Lasix 40 mg tablet RxNorm: 530039 1 Tablet(s) PO daily 201310/22/2013 Inactive Lasix 40 mg tablet RxNorm: 032680 1 Tablet(s) PO daily 201308/07/2013 Inactive potassium chloride ER 10 mEq tablet,extended release RxNorm: 509980 1 Tablet(s) PO BID 07/14/2013 2014 Inactive Lipitor 20 mg tablet RxNorm: 162589 1 Tablet(s) PO daily 201307/08/2014 Inactive generic ok Xanax 0.25 mg tablet RxNorm: 354857 Tablet(s) PO TAKE 1 TABLET BY MOUTH EVERY 4 TO 6 HOURS NEEDED 07/14/20132013 Inactive (Appended: Controlled substance eRx refill - RxReferenceNumber: [id number]|1|0|1) Xanax 0.25 mg tablet RxNorm: 779890 Tablet(s) PO TAKE ONE TABLET BY MOUTH EVERY 4 TO 6 HOURS NEEDED 07/14/20132013 Inactive (Appended: Controlled substance eRx refill - RxReferenceNumber: [id number]) metoprolol succinate ER 50 mg tablet,extended release 24 hr RxNorm: 209240 100mg q am 50 in even Tablet(s) PO 07/14/2013 Inactive Levaquin 500 mg tablet RxNorm: 007971 Tablet(s) PO TAKE ONE TABLET BY MOUTH ONCE DAILY 07/13/2013 12/12/2013 Inactive Levaquin 500 mg tablet RxNorm: 681702 Tablet(s) PO TAKE ONE TABLET BY MOUTH ONCE DAILY 07/13/2013 10/22/2013 Inactive Levaquin 500 mg tablet RxNorm: 340868 1 Tablet(s) PO daily 02/201305/22/2013 Inactive Levaquin 500 mg tablet RxNorm: 977833 1 Tablet(s) PO daily 05/15/2013 Inactive Lipitor 20 mg tablet RxNorm: 072918 1 Tablet(s) PO daily 201307/13/2013 Inactive generic ok Kenalog 40 mg/mL suspension for injection RxNorm: 8360500 1 Milliliter(s) Inj 04/14/2013 04/14/2013 Inactive Lipitor 20 mg tablet RxNorm: 643515 1 Tablet(s) PO daily 201304/16/2013 Inactive Lipitor 20 mg tablet RxNorm: 345094 1 Tablet(s) PO daily 201304/13/2013 Inactive metoprolol succinate ER 50 mg tablet,extended release 24 hr RxNorm: 909020 100mg q am 50 in even Tablet(s) PO 04/14/2013 Inactive Levaquin 500 mg tablet RxNorm: 289649 1 Tablet(s) PO daily 04/20/2013 Inactive Carafate 1 gram tablet RxNorm: 095481 1 Tablet(s) PO QID 201303/30/2013 Inactive Carafate 1 gram tablet RxNorm: 893684 1 Tablet(s) PO QID 201304/23/2013 Inactive Zithromax Z-Preston 250 mg tablet RxNorm: 837505 Tablet(s) PO zpack as directed 01/31/2013 04/12/2013 Inactive Zofran 4 mg tablet RxNorm: 196608 1 Tablet(s) PO Q6 PRN 12/0704/12/2013 Inactive Xanax 0.25 mg tablet RxNorm: 988046 Tablet(s) PO TAKE 1 TABLET BY MOUTH EVERY 4 TO 6 HOURS NEEDED 06/20/20122013 Inactive (Appended: Controlled substance eRx refill - RxReferencSharp [place]: [id number]|1|0|1) Xanax 0.25 mg tablet RxNorm: 065496 1 Tablet(s) PO Q4-6H q 4-6 hrs prn 06/20/2012 No Stop Date Active doxycycline monohydrate 100 mg tablet RxNorm: 341392 1 Tablet(s) PO BID 05/17/2012 05/26/2012 Inactive doxycycline monohydrate 100 mg tablet RxNorm: 719285 1 Tablet(s) PO BID 04/11/2012 04/20/2012 Inactive Kenalog 40 mg/mL Susp for Injection RxNorm: 2293126 1 Milliliter(s) Inj 04/11/2012 04/11/2012 Inactive metoprolol succinate ER 50 mg tablet,extended release 24 hr RxNorm: 767429 Tablet (s) PO TAKE 1 & 1/2 TABLETS BY MOUTH TWICE DAILY 02/01/2012 04/13/2013 Inactive Lipitor 40 mg tablet RxNorm: 306037 Tablet(s) PO TAKE 1 TABLET BY MOUTH EVERY DAY 02/01/2012 04/12/2013 Inactive Pradaxa 150 mg capsule RxNorm: 4502262 Capsule(s) PO 201112/03/2014 Inactive TAKE 1 CAPSULE BY MOUTH TWICE DAILY Xanax 0.25 mg tablet RxNorm: 094850 1 Tablet(s) PO Q4-6H q 4-6 hrs prn 12/28/2011 06/20/2012 Inactive metoprolol succinate ER 50 mg tablet,extended release 24 hr RxNorm: 503148 Tablet (s) PO 12/28/2011 01/31/2012 Inactive TAKE 1 & 1/2 TABLETS BY MOUTH TWICE DAILY Singulair 10 mg tablet RxNorm: 200008 Tablet(s) PO 12/28/2011 04/13/2013 Inactive TAKE ONE TABLET BY MOUTH DAILY clindamycin 150 mg capsule RxNorm: 282602 1 Capsule(s) PO QID 11/25/2011 12/01/2011 Inactive Influenza Virus Vaccine 0.5 mL RxNorm: IM 11/11/2011 11/11/2011 Inactive Pneumovax 23 25 mcg/0.5 mL Injection RxNorm: 354106 Milliliter(s) Inj 11/11/2011 11/11/2011 Inactive Biaxin 500 mg tablet RxNorm: 108002 1 Tablet(s) PO BID 201110/30/2011 Inactive Flagyl 500 mg tablet RxNorm: 025215 1 Tablet(s) PO TID 201109/03/2011 Inactive Flagyl 500 mg tablet RxNorm: 219418 1 Tablet(s) PO TID 201109/10/2011 Inactive doxycycline hyclate 100 mg tablet RxNorm: 515321 1 Tablet(s) PO BID 09/04/2011 09/10/2011 Inactive doxycycline hyclate 100 mg tablet RxNorm: 546849 1 Tablet(s) PO BID 09/04/2011 09/03/2011 Inactive Xopenex 1.25 mg/3 mL Neb Solution RxNorm: 196896 1 Unit(s) INH Q4 PRN 08/18/2011 12/15/2011 Inactive 1 box Xopenex 1.25 mg/3 mL Neb Solution RxNorm: 133446 1 Milliliter(s) INH Q4 PRN 08/18/2011 08/17/2011 Inactive 1 box Zithromax Z-Preston 250 mg Tab RxNorm: 151074 Tablet(s) PO UD 08/1008/11/2011 Inactive doxycycline hyclate 100 mg Tab RxNorm: 557060 1 Tablet(s) PO BID 08/11/2011 08/11/2011 Inactive prednisone 10 mg Tab RxNorm: 520074 1 Tablet(s) PO BID q a.m. and q NOON x 5 days 08/11/2011 08/10/2011 Inactive prednisone 10 mg Tab RxNorm: 215894 1 Tablet(s) PO BID q a.m. and q NOON x 5 days 08/11/2011 08/15/2011 Inactive Kenalog 40 mg/mL Susp for Injection RxNorm: 3914540 1 Milliliter(s) Inj 08/11/2011 08/11/2011 Inactive doxycycline hyclate 100 mg Tab RxNorm: 955836 1 Tablet(s) PO BID 08/11/2011 08/10/2011 Inactive nystatin 100,000 unit/mL Oral Susp RxNorm: 257114 6 Milliliter(s) PO QID 08/10/2011 08/16/2011 Inactive Jamie 60 mg Tab RxNorm: 808118 1 Tablet(s) PO daily 201101/23/2012 Inactive Jamie 60 mg Tab RxNorm: 902723 1 Tablet(s) PO daily 201107/27/2011 Inactive potassium chloride ER 10 mEq tablet,extended release RxNorm: 608332 1 Tablet(s) PO BID 07/27/2011 08/19/2012 Inactive Synthroid 75 mcg Tab RxNorm: 734853 Tablet(s) PO 07/06/2011 07/29/2012 Inactive one tab wednesday1/2 tab other days potassium chloride ER 10 mEq Tab RxNorm: 513521 1 Tablet(s) PO BID 07/02/2011 07/26/2011 Inactive Lasix 40 mg tablet RxNorm: 018703 1 Tablet(s) PO daily 201112/28/2011 Inactive Nexium 40 mg Capsule, delayed release RxNorm: 637724 1 Capsule(s) PO daily 06/25/2011 11/24/2011 Inactive Lexapro 10 mg Tab RxNorm: 359677 1 Tablet(s) PO daily 201107/14/2011 Inactive Carafate 100 mg/mL Oral Susp RxNorm: 973926 10 Milliliter(s) PO QID 06/25/2011 10/20/2011 Inactive dispense qs x 1 month nystatin 100,000 unit/mL Oral Susp RxNorm: 160378 3 Milliliter(s) PO QID swish, gargle, then swallow four times daily. 06/25/2011 07/14/2011 Inactive dispense qs x 10 days. Mucinex 1,200 mg 12 hr Tab RxNorm: 794288 1 Tablet(s) PO BID 07/21/2011 Inactive Lipitor 40 mg tablet RxNorm: 444908 1 Tablet(s) PO daily 201112/18/2011 Inactive lactobacillus acidophilus Cap RxNorm: 2 Capsule(s) PO BID 08/201107/14/2011 Inactive Mucinex 1,200 mg 12 hr Tab RxNorm: 201107 1 Tablet(s) PO BID 06/21/2011 Inactive lactobacillus acidophilus Cap RxNorm: 1 Capsule(s) PO BID 06/21/2011 Inactive Kenalog 40 mg/mL Susp for Injection RxNorm: 5298202 1 Milliliter(s) Inj 06/15/2011 06/15/2011 Inactive Flagyl 500 mg Tab RxNorm: 388328 1 Tablet(s) PO TID 201107/14/2011 Inactive doxycycline hyclate 100 mg Cap RxNorm: 820028 1 Capsule(s) PO BID 06/15/2011 07/14/2011 Inactive clarithromycin 250 mg Tab RxNorm: 563669 1 Tablet(s) PO BID 07/14/2011 Inactive Xanax 0.25 mg tablet RxNorm: 697098 1 Tablet(s) PO Q4-6H q 4-6 hrs prn 05/27/2011 07/16/2011 Inactive Lasix 40 mg Tab RxNorm : 980470 3 Tablet(s) PO as directed 2 q am and 1 q noon 05/27/2011 07/01/2011 Inactive potassium chloride ER 10 mEq Tab RxNorm: 480692 1 Tablet(s) PO BID 05/27/2011 05/26/2011 Inactive KCL 10 meq RxNorm: 1 PO BID 05/27/201112/2011 Inactive potassium chloride ER 10 mEq Tab RxNorm: 709705 1 Tablet(s) PO BID 05/27/2011 06/25/2011 Inactive Pradaxa 75 mg Cap RxNorm: 3439990 2 Capsule(s) PO daily 09/29/2011 Inactive Biaxin 500 mg Tab RxNorm: 724226 1 Tablet(s) PO BID 201103/16/2011 Inactive Biaxin 500 mg Tab RxNorm: 029974 1 Tablet(s) PO BID 201107/14/2011 Inactive azithromycin 250 mg Tab RxNorm: 259941 1 Tablet(s) PO daily two by mouth daily x 3 days, then daily thereafter 02/06/2011 07/14/2011 Inactive two by mouth daily x 3 days, then daily thereafter until supply is exhausted azithromycin 250 mg Tab RxNorm: 558833 1 Tablet(s) PO daily two by mouth daily x 3 days, then daily thereafter 02/06/2011 02/05/2011 Inactive two by mouth daily x 3 days, then daily thereafter until supply is exhausted azithromycin 250 mg Tab RxNorm: 974200 1 Tablet(s) PO daily two by mouth daily x 3 days, then daily thereafter 02/06/2011 02/05/2011 Inactive two by mouth daily x 3 days, then daily thereafter until supply is exhausted Valturna 300 mg-320 mg Tab RxNorm: 9205902 Tablet(s) PO 201007/14/2011 Inactive TAKE 1 TABLET BY MOUTH EVERY DAY Kenalog 40 mg/mL Susp for Injection RxNorm: 2497500 2 Milliliter(s) Inj 11/20/2010 11/20/2010 Inactive Avelox 400 mg Tab RxNorm: 308127 1 Tablet(s) PO daily 201007/14/2011 Inactive Biaxin 500 mg Tab RxNorm: 074568 1 Tablet(s) PO BID 201011/15/2010 Inactive Pradaxa 150 mg Cap RxNorm: 8338052 1 Capsule(s) PO BID 201007/14/2011 Inactive hydrocodone 2.5 mg-guaifenesin 200 mg/5 mL syrup RxNorm: 978552 10 Unit Dose PO Q6 PRN No Start Date Active Xarelto 15 mg tablet RxNorm: 4831521 1 Tablet(s) PO daily No Start Date Active ranitidine 150 mg tablet RxNorm: 131984 1 Tablet(s) PO BID No Start Date Active doxazosin 2 mg tablet RxNorm: 545639 1/2 Tablet(s) PO BID No Start Date 12/08/2015 Inactive Pyridium 200 mg tablet RxNorm: 5996969 1 Tablet(s) PO TID PRN No Start Date 10/28/2016 Inactive Pradaxa 75 mg Cap RxNorm: 5701879 1 Capsule(s) PO daily No Start Date 05/04/2011 Inactive Singulair 10 mg tablet RxNorm: 243843 1 Tablet(s) PO daily No Start Date 07/14/2011 Inactive hydrocodone-acetaminophen 5 mg-325 mg tablet RxNorm: 011058 1 Tablet(s) PO Q6 PRN No Start Date 04/12/2013 Inactive Toprol XL 100 mg 24 hr Tab RxNorm: 757745 1 Tablet(s) PO BID No Start Date 07/14/2011 Inactive Zofran 4 mg tablet RxNorm: 189467 1 Tablet(s) PO Q6 PRN No Start Date 12/06/2012 Inactive Vitamin D2 50,000 unit capsule RxNorm: 197879 1 Capsule(s) PO QW No Start Date 05/15/2014 Inactive Lipitor 40 mg Tab RxNorm: 330429 1 Tablet(s) PO daily No Start Date 06/21/2011 Inactive Trilipix 135 mg Cap RxNorm: 802217 Capsule(s) PO No Start Date 11/26/2010 Inactive Eliquis 5 mg tablet RxNorm: 3388511 1 Tablet(s) PO BID No Start Date 12/08/2015 Inactive KCL 10 meq RxNorm: 1 PO BID No Start Date 05/26/2011 Inactive Diovan 80 mg Tab RxNorm: 899661 1 Tablet(s) PO QHS No Start Date 07/14/2011 Inactive Lipitor 20 mg tablet RxNorm: 940111 1 Tablet(s) PO daily No Start Date 04/13/2013 Inactive Zithromax Z-Preston 250 mg tablet RxNorm: 302641 Tablet(s) PO No Start Date 01/30/2013 Inactive aspirin 81 mg Tab, Delayed Release RxNorm: 801988 1 Tablet(s) PO daily No Start Date 07/14/2011 Inactive prednisone 20 mg Tab RxNorm: 238731 Tablet(s) PO UD 3 tabs x 1 day, then 2 tabs daily x 2 days then 1 tab daily x 1 days, 1/2 daily x 1 day then 1/2 QOD x 2 doses then stop No Start Date 07/14/2011 Inactive Flonase 50 mcg/actuation Nasal Kelly RxNorm: 6044552 2 Kelly NASAL daily No Start Date 02/17/2016 Inactive potassium chloride ER 10 mEq tablet,extended release RxNorm: 230826 1 Tablet(s) PO daily No Start Date 10/14/2016 Inactive Diovan 160 mg Tab RxNorm: 553845 1 Tablet(s) PO QHS No Start Date 12/20/2011 Inactive Lasix 40 mg Tab RxNorm : 046259 3 Tablet(s) PO as directed 2 q am and 1 q noon No Start Date 05/26/2011 Inactive metoprolol succinate ER 50 mg tablet,extended release 24 hr RxNorm: 207471 1 1 / 2 Tablet(s) PO BID No Start Date 2011 Inactive Carafate 1 gram Tab RxNorm: 749057 1 Tablet(s) PO TID No Start Date 07/14/2011 Inactive doxycycline hyclate 100 mg tablet RxNorm: 813097 1 Tablet(s) PO BID No Start Date 08/10/2016 Inactive Zithromax Z-Preston 250 mg Tab RxNorm: 558173 Oral No Start Date 08/10/2011 Inactive prednisone 20 mg Tab RxNorm: 690983 Tablet(s) PO No Start Date 04/06/2011 Inactive 3 tabs x 2 days, 2 tabs x 2 days, 1 tab x 2 days, 1/2 daily x 4 days then stop Bentyl 10 mg Cap RxNorm: 467396 1 Capsule(s) PO BID No Start Date 07/14/2011 Inactive Valturna 300 mg-320 mg Tab RxNorm: 4016648 1 Tablet(s) PO daily No Start Date 01/19/2011 Inactive Vitamin D 1,000 unit Tab RxNorm: 901191 1 Tablet(s) PO daily No Start Date 07/14/2011 Inactive Lexapro 10 mg Tab RxNorm: 291076 1 Tablet(s) PO daily No Start Date 04/06/2011 Inactive Synthroid 75 mcg Tab RxNorm: 912606 Tablet(s) PO No Start Date 07/05/2011 Inactive Protonix 40 mg Tab RxNorm: 683323 1 Tablet(s) PO daily No Start Date 07/14/2011 Inactive prednisone 20 mg tablet RxNorm: 652003 Tablet(s) PO 3daily x 2days, then 2daily x2days, then 1daily x2days, then 1/2 daily x 2days then stop No Start Date 12/12/2013 Inactive Nexium 40 mg Cap RxNorm: 123844 1 Capsule(s) PO daily No Start Date 06/03/2011 Inactive Xanax 0.25 mg Tab RxNorm: 262498 1 Tablet(s) PO Q4-6H q 4-6 hrs prn No Start Date 04/06/2011 Inactive Synthroid 50 mcg Tab RxNorm: 630251 1 Tablet(s) PO daily No Start Date 07/14/2011 Inactive Pradaxa 150 mg capsule RxNorm: 2534895 1 Capsule(s) PO BID No Start Date 12/30/2011 Inactive metoprolol tartrate 25 mg tablet RxNorm: 658444 1 Tablet(s) PO TID No Start Date 12/08/2015 Inactive Singulair 5 mg Chewable Tab RxNorm: 857273 1 Tablet(s) PO every other day No Start Date 04/13/2013 Inactive Medication Administered Medication Codes Instructions Start Date Status cyanocobalamin (vit B-12) 1,000 mcg/mL injection solution RxNorm: 544506 Milliliter 09/13/2015 No longer Active Kenalog 40 mg/mL suspension for injection RxNorm: 7728656 Milliliter 03/27/2015 No longer Active Kenalog 40 mg/mL suspension for injection RxNorm: 8390522 Milliliter 12/11/2014 No longer Active Kenalog 40 mg/mL suspension for injection RxNorm: 7163342 1Milliliter 04/14/2013 No longer Active Kenalog 40 mg/mL Susp for Injection RxNorm: 7026527 1Milliliter 04/11/2012 No longer Active Influenza Virus Vaccine 0.5 mL RxNorm: 11/11/2011 No longer Active Pneumovax 23 25 mcg/0.5 mL Injection RxNorm: 152211 Milliliter 11/11/2011 No longer Active Kenalog 40 mg/mL Susp for Injection RxNorm: 3251595 1Milliliter 08/11/2011 No longer Active Kenalog 40 mg/mL Susp for Injection RxNorm: 5677703 1Milliliter 06/15/2011 No longer Active Kenalog 40 mg/mL Susp for Injection RxNorm: 1307679 2Milliliter 11/20/2010 No longer Active Immunizations Vaccine Codes Date Status Influenza CVX: 141 11/03/2016 completed Zoster CVX: 121 12/14/2015 completed Influenza CVX: 141 11/13/2015 completed Pneumococcal (Adult) CVX: 133 12/24/2014 completed Influenza CVX: 141 11/22/2014 completed Influenza CVX: 141 11/22/2014 completed Influenza CVX: 141 11/07/2013 completed Influenza CVX: 141 11/03/2012 completed Influenza CVX: 141 11/11/2011 completed Pneumococcal (Adult) CVX: 33 11/11/2011 completed Influenza CVX: 141 11/01/2009 completed Assessments Condition Codes Effective Dates Encounter for immunization ICD-10: Z23 ICD-9: V03.9 03/15/2017 Essential (primary) hypertension ICD-10: I10 ICD-9: 401.9 01/11/2017 Dysuria ICD-10: R30.0 ICD-9: 788.1 12/31/2016 Urinary tract infection, site not specified ICD-10: N39.0 ICD-9: 599.0 12/31/2016 Encounter for immunization ICD-10: Z23 ICD-9: V04.81 11/03/2016 Other injury of unspecified body region ICD-10: T14.8 ICD-9: 879.8 10/08/2016 Vitamin D deficiency, unspecified ICD-10: E55.9 ICD-9: 268.9 09/15/2016 Laceration without foreign body of right hand, initial encounter ICD-10: S61.411A ICD-9: 882.0 07/20/2016 Encounter for general adult medical examination with abnormal findings ICD-10: Z00.01 ICD-9: V70.0 12/09/2015 Cramp and spasm ICD-10: R25.2 ICD-9: 729.82 10/15/2015 Other vitamin B12 deficiency anemias ICD-10: D51.8 ICD-9: 281.1 09/13/2015 Laceration without foreign body of right forearm, initial encounter ICD-10: S51.811A ICD-9: 881.00 09/09/2015 Localized edema ICD-10: R60.0 ICD-9: 782.3 09/05/2015 Cellulitis of right upper limb ICD-10: L03.113 ICD-9: 682.3 08/02/2015 Hypothyroidism, unspecified ICD-10: E03.9 ICD-9: 244.9 06/11/2015 Other acute sinusitis ICD-10: J01.80 ICD-9: 461.9 03/27/2015 Allergic rhinitis, unspecified ICD-10: J30.9 ICD-9: 477.9 12/11/2014 Other screening mammogram ICD-9: V76.12 11/12/2014 DYSURIA ICD-9: 788.1 11/08/2014 Dyspnea ICD-9: 786.09 10/23/2013 EDEMA ICD-9: 782.3 10/23/2013 ACUTE MAXILLARY SINUSITIS ICD-9: 461.0 COUGH ICD-9: 786.2 04/14/2013 HYPERLIPIDEMIA ICD-9: 272.4 04/12/2013 OTHER ABNORMAL GLUCOSE ICD-9: 790.29 Encounter for long-term (current) use of other medications ICD-9: V58.69 04/12/2013 ESSENTIAL HYPERTENSION SNOMED: [id number] ICD-9: 401.9 04/12/2013 ATRIAL FIBRILLATION ICD-9: 427.31 2013 HYPOTHYROIDISM ICD-9: 244.9 04/12/2013 Spasm of muscle ICD-9: 728.85 01/05/2013 Lumbago ICD-9: 724.2 01/05/2013 ACUTE SINUSITIS ICD-9: 461.9 04/11/2012 ALLERGIC RHINITIS ICD-9: 477.9 2012 BACTERIAL PNEUMONIA ICD-9: 482.9 2011 Pneumonia ICD-9: 486 12/21/2011 Chest pain ICD-9: 786.50 12/21/2011 Cellulitis of lip ICD-9: 528.5 2011 Immunization, pneumococcus and influenza ICD-9: V06.6 11/11/2011 OBESITY ICD-9: 278.00 11/11/2011 Hematuria ICD-9: 599.70 09/02/2011 LUQ abdominal pain ICD-9: 789.02 2011 Aneurysm, splenic artery ICD-9: 442.83 ACUTE URI ICD-9: 465.9 08/11/2011 Benign essential tremor syndrome ICD-9: 333.1 07/14/2011 Congestion of throat ICD-9: 784.99 2011 Otalgia ICD-9: 388.70 07/14/2011 Chronic sinusitis ICD-9: 473.9 2011 Hoarse ICD-9: 784.42 06/25/2011 Diarrhea ICD-9: 787.91 06/16/2011 Hypoxemia ICD-9: 799.02 06/16/2011 Fatigue ICD-9: 780.79 06/04/2011 Knee pain, acute ICD-9: 719.46 2011 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 Encounter for general adult medical examination with abnormal findings ICD-9: V70.0 01/21/2011 Actinic keratosis ICD-9: 702.0 2010 DEPRESSIVE DISORDER NEC ICD-9: 311 2010 Reason For Visit Reason For Visit Effective Dates Notes vaccination against pneumonia 03/15/2017 vaccination against influenza 11/03/2016 sores 07/20/2016 Annual Medicare Wellness Exam 12/09/2015 vaccination against influenza 11/13/2015 sores 09/09/2015 diaphoresis 06/11/2015 cough 12/11/2014 Annual Medicare Wellness Exam 12/04/2014 vaccination against influenza 11/22/2014 cough 10/23/2013 sinus congestion 04/14/2013 back pain 01/05/2013 sinus congestion 04/11/2012 hypertension 03/07/2012 hypertension 01/13/2012 Hospital Follow Up 12/29/2011 chest pain/pressure 12/21/2011 oral lesion 11/25/2011 Weight follow up 11/11/2011 sinus congestion 10/21/2011 obesity 10/14/2011 abdominal pain 09/02/2011 edema 08/10/2011 earache 07/14/2011 hypertension 07/02/2011 --Improved hypertension 06/25/2011 shortness of breath 06/16/2011 sinus congestion 06/15/2011 weight gain/obesity 06/04/2011 Pt is planning a lapband surgery by Dr. Cueto, pt has been dieting - pt is cutting back on sodium and 1800 calorie diet, cut back/stopped soda, drinking a lot of water weight gain/obesity 05/05/2011 arm pain 04/07/2011 weight gain/obesity 03/17/2011 well woman exam (40-65 years) 01/21/2011 sore throat 11/24/2010 sore throat 11/20/2010 earache 11/06/2010 Results Observation Observation Code Item Item Code Result Date Metabolic Ord15 NA 140 mEq/L 01/15/2017 Metabolic Ord15 K 3.7 mEq/L 01/15/2017 Metabolic Ord15 CL 104 mEq/L 01/15/2017 Metabolic Ord15 CO2 27.0 mEq/L 01/15/2017 Metabolic Ord15 GLUCOSE 105 mg/dL 01/15/2017 Metabolic Ord15 BUN 10 mg/dL 01/15/2017 Metabolic Ord15 Creat 0.9 mg/dL 01/15/2017 Metabolic Ord15 B/C Ratio 11.8 Ratio 01/15/2017 Metabolic Ord15 eGFR 71 ml/min/1.73m2 01/15/2017 Metabolic Ord15 Osmo 279 mOsmo 01/15/2017 Metabolic Ord15 ANION GAP 13 01/15/2017 Metabolic Ord15 CALCIUM 9.4 mg/dL 01/15/2017 Comp Metabolic Lve789 NA 137 mEq/L 12/31/2016 Comp Metabolic Msr083 K 3.2 mEq/L 12/31/2016 Comp Metabolic Djt081 CL 95 mEq/L 12/31/2016 Comp Metabolic Tme517 CO2 30.0 mEq/L 12/31/2016 Comp Metabolic Upg800 ANION GAP 15 12/31/2016 Comp Metabolic Pen208 GLUCOSE 111 mg/dL 12/31/2016 Comp Metabolic Yqq860 Creat 1.3 mg/dL 12/31/2016 Comp Metabolic Oip459 eGFR 45 ml/min/1.73m2 12/31/2016 Comp Metabolic Vhx234 BUN 14 mg/dL 12/31/2016 Comp Metabolic Vga397 B/C Ratio 11.1 Ratio 12/31/2016 Comp Metabolic Uey168 CALCIUM 10.0 mg/dL 12/31/2016 Comp Metabolic Thn098 ALK PHOS 61 U/L 12/31/2016 Comp Metabolic Top808 AST(SGOT) 14 U/L 12/31/2016 Comp Metabolic Csy397 ALT(SGPT) 13 U/L 12/31/2016 Comp Metabolic Png947 BILI T 0.9 mg/dL 12/31/2016 Comp Metabolic Djh446 ALBUMIN 3.8 g/dL 12/31/2016 Comp Metabolic Vfp055 TPRO 6.7 g/dL 12/31/2016 Comp Metabolic Gjl908 GLOB 2.9 g/dL 12/31/2016 Comp Metabolic Iqd581 A/G Ratio 1.3 Ratio 12/31/2016 Comp Metabolic Yqb039 Osmo 275 mOsmo 12/31/2016 Cbc With Differential Ord2 WBC 6.36 K/ul 12/31/2016 Cbc With Differential Ord2 RBC 4.49 M/ul 12/31/2016 Cbc With Differential Ord2 HGB 13.6 g/dl 12/31/2016 Cbc With Differential Ord2 Neut% 56.3 % 12/31/2016 Cbc With Differential Ord2 HCT 41.7 % 12/31/2016 Cbc With Differential Ord2 Lymph% 29.7 % 12/31/2016 Cbc With Differential Ord2 MCV 92.9 fl 12/31/2016 Cbc With Differential Ord2 Baldwin% 11.2 % 12/31/2016 Cbc With Differential Ord2 MCH 30.3 pg 12/31/2016 Cbc With Differential Ord2 MCHC 32.6 pg 12/31/2016 Cbc With Differential Ord2 Eos% 1.9 % 12/31/2016 Cbc With Differential Ord2 Baso% 0.9 % 12/31/2016 Cbc With Differential Ord2 PLT 199 K/ul 12/31/2016 Cbc With Differential Ord2 Neut ABS# 3.58 K/ul 12/31/2016 Cbc With Differential Ord2 RDW 13.3 % 12/31/2016 Cbc With Differential Ord2 Lymph ABS# 1.89 K/ul 12/31/2016 Cbc With Differential Ord2 Baldwin ABS# 0.7 K/ul 12/31/2016 Cbc With Differential Ord2 Eos ABS# 0.1 K/ul 12/31/2016 Cbc With Differential Ord2 Baso ABS# 0.1 K/ul 12/31/2016 Urine Culture Ucult Complete >100,000 col/ml aerobic growth sent to ref lab 10/30/2016 Tsh Ord6 hTSH II 2.88 uIU/mL 09/15/2016 Comp Metabolic Jxp623 NA 139 mEq/L 09/15/2016 Comp Metabolic Hbc304 K 4.0 mEq/L 09/15/2016 Comp Metabolic Uqs340 CL 104 mEq/L 09/15/2016 Comp Metabolic Uwn154 CO2 27.0 mEq/L 09/15/2016 Comp Metabolic Exp116 ANION GAP 12 09/15/2016 Comp Metabolic Mrt365 GLUCOSE 105 mg/dL 09/15/2016 Comp Metabolic Rgv739 Creat 0.9 mg/dL 09/15/2016 Comp Metabolic Tcw077 eGFR 67 ml/min/1.73m2 09/15/2016 Comp Metabolic Bru363 BUN 14 mg/dL 09/15/2016 Comp Metabolic Fkh472 B/C Ratio 15.7 Ratio 09/15/2016 Comp Metabolic Qwz310 CALCIUM 9.0 mg/dL 09/15/2016 Comp Metabolic Jaz746 ALK PHOS 85 U/L 09/15/2016 Comp Metabolic Vkz477 AST(SGOT) 12 U/L 09/15/2016 Comp Metabolic Xok107 ALT(SGPT) 11 U/L 09/15/2016 Comp Metabolic Ian363 BILI T 0.5 mg/dL 09/15/2016 Comp Metabolic Loh285 ALBUMIN 3.4 g/dL 09/15/2016 Comp Metabolic Lyj024 TPRO 5.8 g/dL 09/15/2016 Comp Metabolic Dfh714 GLOB 2.4 g/dL 09/15/2016 Comp Metabolic Lpe100 A/G Ratio 1.4 Ratio 09/15/2016 Comp Metabolic Nrm102 Osmo 278 mOsmo 09/15/2016 Vitamin D 25 Oh [id number] VITAMIN D, 25 HYDROXY 25.95 ng/mL Lipid Ord30 CHOL 209 mg/dL 09/15/2016 Lipid Ord30 HDL 54.0 mg/dl 09/15/2016 Lipid Ord30 TRIG 104 mg/dL 09/15/2016 Lipid Ord30 LDL 134 mg/dL 09/15/2016 Lipid Ord30 C/HDL 3.9 Ratio 09/15/2016 Magnesium Ord90 Mag 2.0 mg/dL 09/15/2016 Magnesium Ord90 Mag 2.2 mg/dL 01/13/2016 Metabolic Ord15 NA 139 mEq/L 01/13/2016 Metabolic Ord15 K 3.6 mEq/L 01/13/2016 Metabolic Ord15 CL 102 mEq/L 01/13/2016 Metabolic Ord15 CO2 28.0 mEq/L 01/13/2016 Metabolic Ord15 GLUCOSE 111 mg/dL 01/13/2016 Metabolic Ord15 BUN 14 mg/dL 01/13/2016 Metabolic Ord15 Creat 1.0 mg/dL 01/13/2016 Metabolic Ord15 B/C Ratio 13.7 Ratio 01/13/2016 Metabolic Ord15 eGFR 58 ml/min/1.73m2 01/13/2016 Metabolic Ord15 Osmo 279 mOsmo 01/13/2016 Metabolic Ord15 ANION GAP 13 01/13/2016 Metabolic Ord15 CALCIUM 9.2 mg/dL 01/13/2016 Vitamin D 25 Oh [id number] VITAMIN D, 25 HYDROXY 38.03 ng/mL Comp Metabolic Jzq219 NA 139 mEq/L 11/28/2015 Comp Metabolic Kak376 K 4.0 mEq/L 11/28/2015 Comp Metabolic Oml515 CL 105 mEq/L 11/28/2015 Comp Metabolic Zlz903 CO2 25.0 mEq/L 11/28/2015 Comp Metabolic Hgm602 ANION GAP 13 11/28/2015 Comp Metabolic Pzp471 GLUCOSE 100 mg/dL 11/28/2015 Comp Metabolic Ooo197 Creat 1.1 mg/dL 11/28/2015 Comp Metabolic Nxr282 eGFR 55 ml/min/1.73m2 11/28/2015 Comp Metabolic Vid837 BUN 13 mg/dL 11/28/2015 Comp Metabolic Tmi464 B/C Ratio 12.3 Ratio 11/28/2015 Comp Metabolic Epw957 CALCIUM 9.2 mg/dL 11/28/2015 Comp Metabolic Nrx830 ALK PHOS 85 U/L 11/28/2015 Comp Metabolic Uwf266 AST(SGOT) 15 U/L 11/28/2015 Comp Metabolic Jli772 ALT(SGPT) 15 U/L 11/28/2015 Comp Metabolic Nfo282 BILI T 0.5 mg/dL 11/28/2015 Comp Metabolic Vzv991 ALBUMIN 3.7 g/dL 11/28/2015 Comp Metabolic Son688 TPRO 6.4 g/dL 11/28/2015 Comp Metabolic Kgx453 GLOB 2.7 g/dL 11/28/2015 Comp Metabolic Mku886 A/G Ratio 1.4 Ratio 11/28/2015 Comp Metabolic Bkq705 Osmo 278 mOsmo 11/28/2015 Tsh Ord6 hTSH II 1.98 uIU/mL 11/28/2015 Free T4 Eab017 FREE T4 1.04 ng/dL 11/28/2015 Cbc With Differential Ord2 WBC 8.46 K/ul 11/28/2015 Cbc With Differential Ord2 RBC 4.70 M/ul 11/28/2015 Cbc With Differential Ord2 HGB 14.5 g/dl 11/28/2015 Cbc With Differential Ord2 HCT 44.4 % 11/28/2015 Cbc With Differential Ord2 Neut% 65.7 % 11/28/2015 Cbc With Differential Ord2 Lymph% 25.9 % 11/28/2015 Cbc With Differential Ord2 MCV 94.5 fl 11/28/2015 Cbc With Differential Ord2 MCH 30.9 pg 11/28/2015 Cbc With Differential Ord2 Baldwin% 6.7 % 11/28/2015 Cbc With Differential Ord2 Eos% 1.1 % 11/28/2015 Cbc With Differential Ord2 MCHC 32.7 pg 11/28/2015 Cbc With Differential Ord2 Baso% 0.6 % 11/28/2015 Cbc With Differential Ord2 PLT 157 K/ul 11/28/2015 Cbc With Differential Ord2 RDW 13.2 % 11/28/2015 Cbc With Differential Ord2 Neut ABS# 5.56 K/ul 11/28/2015 Cbc With Differential Ord2 Lymph ABS# 2.19 K/ul 11/28/2015 Cbc With Differential Ord2 Baldwin ABS# 0.6 K/ul 11/28/2015 Cbc With Differential Ord2 Eos ABS# 0.1 K/ul 11/28/2015 Cbc With Differential Ord2 Baso ABS# 0.1 K/ul 11/28/2015 Comp Metabolic Uxn617 NA 135 mEq/L 10/15/2015 Comp Metabolic Zcy017 K 3.5 mEq/L 10/15/2015 Comp Metabolic Vik393 CL 100 mEq/L 10/15/2015 Comp Metabolic Ooz072 CO2 29.0 mEq/L 10/15/2015 Comp Metabolic Fib847 ANION GAP 10 10/15/2015 Comp Metabolic Lgq519 GLUCOSE 88 mg/dL 10/15/2015 Comp Metabolic Hrk158 Creat 0.9 mg/dL 10/15/2015 Comp Metabolic Evg250 eGFR 67 ml/min/1.73m2 10/15/2015 Comp Metabolic Dce344 BUN 16 mg/dL 10/15/2015 Comp Metabolic Mot253 B/C Ratio 17.8 Ratio 10/15/2015 Comp Metabolic Bpo069 CALCIUM 9.4 mg/dL 10/15/2015 Comp Metabolic Zik192 ALK PHOS 96 U/L 10/15/2015 Comp Metabolic Hci402 AST(SGOT) 15 U/L 10/15/2015 Comp Metabolic Nan915 ALT(SGPT) 14 U/L 10/15/2015 Comp Metabolic Fmg070 BILI T 0.4 mg/dL 10/15/2015 Comp Metabolic Awx910 ALBUMIN 4.2 g/dL 10/15/2015 Comp Metabolic Vwu671 TPRO 7.2 g/dL 10/15/2015 Comp Metabolic Oty485 GLOB 3.1 g/dL 10/15/2015 Comp Metabolic Sdv064 A/G Ratio 1.4 Ratio 10/15/2015 Comp Metabolic Dhn422 Osmo 271 mOsmo 10/15/2015 Comp Metabolic Bfp530 NA 135 mEq/L 10/15/2015 Comp Metabolic Qiw853 K 3.5 mEq/L 10/15/2015 Comp Metabolic Uad219 CL 100 mEq/L 10/15/2015 Comp Metabolic Hiq506 CO2 29.0 mEq/L 10/15/2015 Comp Metabolic Dip688 ANION GAP 10 10/15/2015 Comp Metabolic Gdx141 GLUCOSE 88 mg/dL 10/15/2015 Comp Metabolic Fls272 Creat 0.9 mg/dL 10/15/2015 Comp Metabolic Jfh651 eGFR 67 ml/min/1.73m2 10/15/2015 Comp Metabolic Myc613 BUN 16 mg/dL 10/15/2015 Comp Metabolic Gjr396 B/C Ratio 17.8 Ratio 10/15/2015 Comp Metabolic Uio516 CALCIUM 9.4 mg/dL 10/15/2015 Comp Metabolic Ptj070 ALK PHOS 96 U/L 10/15/2015 Comp Metabolic Lpt228 AST(SGOT) 15 U/L 10/15/2015 Comp Metabolic Quf141 ALT(SGPT) -125 U/L 10/15/2015 Comp Metabolic Nzj960 BILI T 0.4 mg/dL 10/15/2015 Comp Metabolic Lnq949 ALBUMIN 4.2 g/dL 10/15/2015 Comp Metabolic Xeq633 TPRO 7.2 g/dL 10/15/2015 Comp Metabolic Wsz405 GLOB 3.1 g/dL 10/15/2015 Comp Metabolic Qvr434 A/G Ratio 1.4 Ratio 10/15/2015 Comp Metabolic Qli051 Osmo 271 mOsmo 10/15/2015 Magnesium Ord90 Mag 2.2 mg/dL 10/15/2015 Magnesium Ord90 Mag 1.9 mg/dL 09/05/2015 Comp Metabolic Wzg615 NA 138 mEq/L 09/05/2015 Comp Metabolic Mhy731 K 3.7 mEq/L 09/05/2015 Comp Metabolic Rvi387 CL 99 mEq/L 09/05/2015 Comp Metabolic Zrn411 CO2 30.0 mEq/L 09/05/2015 Comp Metabolic Dsy568 ANION GAP 13 09/05/2015 Comp Metabolic Lud221 GLUCOSE 97 mg/dL 09/05/2015 Comp Metabolic Twq116 Creat 1.1 mg/dL 09/05/2015 Comp Metabolic Zlj854 eGFR 54 ml/min/1.73m2 09/05/2015 Comp Metabolic Ieq859 BUN 18 mg/dL 09/05/2015 Comp Metabolic Vng937 B/C Ratio 16.7 Ratio 09/05/2015 Comp Metabolic Ztg324 CALCIUM 9.6 mg/dL 09/05/2015 Comp Metabolic Ual049 ALK PHOS 96 U/L 09/05/2015 Comp Metabolic Svg134 AST(SGOT) 15 U/L 09/05/2015 Comp Metabolic Yro677 ALT(SGPT) 14 U/L 09/05/2015 Comp Metabolic Dic656 BILI T 0.5 mg/dL 09/05/2015 Comp Metabolic Pto839 ALBUMIN 4.1 g/dL 09/05/2015 Comp Metabolic Ong827 TPRO 7.0 g/dL 09/05/2015 Comp Metabolic Sjq670 GLOB 3.0 g/dL 09/05/2015 Comp Metabolic Kfp805 A/G Ratio 1.4 Ratio 09/05/2015 Comp Metabolic Hct962 Osmo 277 mOsmo 09/05/2015 Vitamin D 25 Oh Cqo6492 VITAMIN D, 25 HYDROXY 22.39 ng/mL Magnesium Ord90 Mag 2.0 mg/dL 06/11/2015 Tsh Ord6 hTSH II 3.52 uIU/mL 06/11/2015 Comp Metabolic Xxc750 NA 135 mEq/L 06/11/2015 Comp Metabolic Ykc228 K 4.3 mEq/L 06/11/2015 Comp Metabolic Gqj344 CL 103 mEq/L 06/11/2015 Comp Metabolic Gvw759 CO2 25.0 mEq/L 06/11/2015 Comp Metabolic Aqr181 ANION GAP 11 06/11/2015 Comp Metabolic Gxu956 GLUCOSE 75 mg/dL 06/11/2015 Comp Metabolic Qcc488 Creat 0.9 mg/dL 06/11/2015 Comp Metabolic Bmz198 eGFR 69 ml/min/1.73m2 06/11/2015 Comp Metabolic Orm156 BUN 22 mg/dL 06/11/2015 Comp Metabolic Iap772 B/C Ratio 25.3 Ratio 06/11/2015 Comp Metabolic Nhi435 CALCIUM 9.2 mg/dL 06/11/2015 Comp Metabolic Ist303 ALK PHOS 88 U/L 06/11/2015 Comp Metabolic Rlt608 AST(SGOT) 13 U/L 06/11/2015 Comp Metabolic Lre201 ALT(SGPT) 15 U/L 06/11/2015 Comp Metabolic Fkt764 BILI T 0.4 mg/dL 06/11/2015 Comp Metabolic Wyo751 ALBUMIN 3.7 g/dL 06/11/2015 Comp Metabolic Cfi784 TPRO 6.6 g/dL 06/11/2015 Comp Metabolic Kvv306 GLOB 2.9 g/dL 06/11/2015 Comp Metabolic Vdz559 A/G Ratio 1.3 Ratio 06/11/2015 Comp Metabolic Gpd817 Osmo 272 mOsmo 06/11/2015 Free T4 Yqh040 FREE T4 0.95 ng/dL 06/11/2015 Cbc With Differential Ord2 WBC 11.66 K/ul 06/11/2015 Cbc With Differential Ord2 RBC 4.34 M/ul 06/11/2015 Cbc With Differential Ord2 HGB 13.6 g/dl 06/11/2015 Cbc With Differential Ord2 HCT 41.5 % 06/11/2015 Cbc With Differential Ord2 Neut% 69.6 % 06/11/2015 Cbc With Differential Ord2 Lymph% 22.0 % 06/11/2015 Cbc With Differential Ord2 MCV 95.6 fl 06/11/2015 Cbc With Differential Ord2 MCH 31.3 pg 06/11/2015 Cbc With Differential Ord2 Baldwin% 7.4 % 06/11/2015 Cbc With Differential Ord2 MCHC 32.8 pg 06/11/2015 Cbc With Differential Ord2 Eos% 0.7 % 06/11/2015 Cbc With Differential Ord2 Baso% 0.3 % 06/11/2015 Cbc With Differential Ord2 PLT 224 K/ul 06/11/2015 Cbc With Differential Ord2 Neut ABS# 8.11 K/ul 06/11/2015 Cbc With Differential Ord2 RDW 12.8 % 06/11/2015 Cbc With Differential Ord2 Lymph ABS# 2.57 K/ul 06/11/2015 Cbc With Differential Ord2 Baldwin ABS# 0.9 K/ul 06/11/2015 Cbc With Differential Ord2 Eos ABS# 0.1 K/ul 06/11/2015 Cbc With Differential Ord2 Baso ABS# 0.0 K/ul 06/11/2015 Cbc With Differential Ord2 New Analyzer Notice Please note new ref ranges starting 02-27-2015 due to implemntation of new five part differential hematolgy analyzer. 06/11/2015 Metabolic Ord15 NA 139 mEq/L 01/24/2015 Metabolic Ord15 K 4.1 mEq/L 01/24/2015 Metabolic Ord15 CL 107 mEq/L 01/24/2015 Metabolic Ord15 CO2 22.0 mEq/L 01/24/2015 Metabolic Ord15 GLUCOSE 83 mg/dL 01/24/2015 Metabolic Ord15 BUN 16 mg/dL 01/24/2015 Metabolic Ord15 Creat 1.0 mg/dL 01/24/2015 Metabolic Ord15 B/C Ratio 16.5 Ratio 01/24/2015 Metabolic Ord15 eGFR 61 ml/min/1.73m2 01/24/2015 Metabolic Ord15 Osmo 278 mOsmo 01/24/2015 Metabolic Ord15 ANION GAP 14 01/24/2015 Metabolic Ord15 CALCIUM 9.4 mg/dL 01/24/2015 Cbc With Differential Ord2 WBC 8.5 K/uL 11/16/2014 Cbc With Differential Ord2 LYM 2.5 K/uL 11/16/2014 Cbc With Differential Ord2 LYM% 29.1 % 11/16/2014 Cbc With Differential Ord2 NEUT/GRAN 5.5 K/uL 11/16/2014 Cbc With Differential Ord2 NEUT/GRAN % 64.5 % 11/16/2014 Cbc With Differential Ord2 MID 0.5 K/uL 11/16/2014 Cbc With Differential Ord2 MID% 6.4 % 11/16/2014 Cbc With Differential Ord2 RBC 4.46 M/uL 11/16/2014 Cbc With Differential Ord2 HGB 13.9 g/dL 11/16/2014 Cbc With Differential Ord2 HCT 43.5 % 11/16/2014 Cbc With Differential Ord2 MCV 98 fL 11/16/2014 Cbc With Differential Ord2 MCH 31 pg 11/16/2014 Cbc With Differential Ord2 MCHC 32 g/dL 11/16/2014 Cbc With Differential Ord2 PLT 170 K/uL 11/16/2014 Cbc With Differential Ord2 RDW 13.8 % 11/16/2014 Vitamin D 25 Oh Tws1557 VITAMIN D, 25 HYDROXY 22.85 ng/mL Lipid Ord30 CHOL 206 mg/dL 11/16/2014 Lipid Ord30 HDL 49.0 mg/dl 11/16/2014 Lipid Ord30 TRIG 104 mg/dL 11/16/2014 Lipid Ord30 LDL 136 mg/dL 11/16/2014 Lipid Ord30 C/HDL 4.2 Ratio 11/16/2014 Tsh Ord6 hTSH II 2.05 uIU/mL 11/16/2014 Comp Metabolic Jwz908 NA 138 mEq/L 11/16/2014 Comp Metabolic Uoh775 K 4.0 mEq/L 11/16/2014 Comp Metabolic Hpq710 CL 104 mEq/L 11/16/2014 Comp Metabolic Pty560 CO2 27.0 mEq/L 11/16/2014 Comp Metabolic Kho818 ANION GAP 11 11/16/2014 Comp Metabolic Zqf430 GLUCOSE 94 mg/dL 11/16/2014 Comp Metabolic Fzg615 Creat 0.9 mg/dL 11/16/2014 Comp Metabolic Qwj718 eGFR 64 ml/min/1.73m2 11/16/2014 Comp Metabolic Usw087 BUN 12 mg/dL 11/16/2014 Comp Metabolic Mui216 B/C Ratio 12.9 Ratio 11/16/2014 Comp Metabolic Kms416 CALCIUM 9.4 mg/dL 11/16/2014 Comp Metabolic Kyz277 ALK PHOS 88 U/L 11/16/2014 Comp Metabolic Lic604 AST(SGOT) 14 U/L 11/16/2014 Comp Metabolic Rvx540 ALT(SGPT) 12 U/L 11/16/2014 Comp Metabolic Xhf129 BILI T 0.6 mg/dL 11/16/2014 Comp Metabolic Msr435 ALBUMIN 3.7 g/dL 11/16/2014 Comp Metabolic Zlh673 TPRO 6.3 g/dL 11/16/2014 Comp Metabolic Thr648 GLOB 2.6 g/dL 11/16/2014 Comp Metabolic Waw765 A/G Ratio 1.4 Ratio 11/16/2014 Comp Metabolic Bzv012 Osmo 275 mOsmo 11/16/2014 %Hba1C Iiq379 % HbA1c 71822-0 5.7 % 11/16/2014 %Hba1C Pkz296 Gluc Ave 117 mg/dL 11/16/2014 GFR CALC 4937264 GFR AA >60 ML/MIN 04/12/2013 GFR CALC 6824677 GFR NON-AA >60 ML/MIN 04/12/2013 TSH 9843134 TSH 2.194 uIU/ML 04/12/2013 VIT B 12 5643052 VIT B 12 415 PG/ML 04/12/2013 CBC 8338604 WBC 8.8 10e9/L 04/12/2013 CBC [id number] RBC 4.59 10e12/L 04/12/2013 CBC 3277062 HGB 14.3 g/dL 04/12/2013 CBC 2894753 HCT DET 42.4 % 04/12/2013 CBC 7331506 MCV 92.4 fL 04/12/2013 CBC 1777848 MCH 31.2 pg 04/12/2013 CBC 0671090 MCHC 33.7 g/dL 04/12/2013 CBC 0819855 PLT 213 10e9/L 04/12/2013 CBC 1379223 MPV 12.8 fL 04/12/2013 CBC 9264406 LULU % 61.8 % 04/12/2013 CBC 0377095 LY % 29.2 % 04/12/2013 CBC 9269598 MON % 7.2 % 04/12/2013 CBC 8929939 EOS % 1.3 % 04/12/2013 CBC 8711050 BASO % 0.5 % 04/12/2013 CBC 2684834 RDW 12.6 % 04/12/2013 CBC 1228865 ABS LULU 5.44 10e9/L 04/12/2013 CBC 5599308 ABS LYMPH 2.57 10e9/L 04/12/2013 CBC 8281840 ABS MONO 0.63 10e9/L 04/12/2013 CBC 0587242 ABS EOS 0.11 10e9/L 04/12/2013 CBC 6052472 ABS BASO 0.04 10e9/L 04/12/2013 CBC 4664228 RDW-SD 41.3 fL 04/12/2013 FREE T4 5220049 FREE T4 1.09 NG/DL 04/12/2013 A1C HPLC 7696126 A1C HPLC 14858-8 5.4 % 04/12/2013 CHEM 14 2288115 AST 12 U/L 04/12/2013 CHEM 14 1573294 ALT 11 IU/L 04/12/2013 CHEM 14 0425642 BUN 14 MG/DL 04/12/2013 CHEM 14 2092952 ALBUMIN 4.1 GM/DL 04/12/2013 CHEM 14 9643726 CHLORIDE 105 MMOL/L 04/12/2013 CHEM 14 5771033 BILI TOT 0.6 MG/DL 04/12/2013 CHEM 14 0010490 ALK PHOS 81 U/L 04/12/2013 CHEM 14 1002300 SODIUM 138 MMOL/L 04/12/2013 CHEM 14 4611292 CREATININE 0.86 MG/DL 04/12/2013 CHEM 14 0842012 CALCIUM 9.8 MG/DL 04/12/2013 CHEM 14 5542996 POTASSIUM 4.1 MMOL/L 04/12/2013 CHEM 14 4020483 PROT TOT 6.6 GM/DL 04/12/2013 CHEM 14 0882591 GLUCOSE 112 MG/DL 04/12/2013 CHEM 14 4176745 BICARB 27 MMOL/L 04/12/2013 CHEM 14 3157586 ANION GAP 6 MEQ/L 04/12/2013 LIPID GRP HDL TEST 55 MG/DL 04/12/2013 LIPID GRP TRIG 107 MG/DL 04/12/2013 LIPID GRP TEST LDL 193 MG/DL 04/12/2013 LIPID GRP CHOL 269 MG/DL 04/12/2013 LIPID GRP RCHOL/HDL 4.89 RATIO 04/12/2013 NICOT QN S 8566343 NICOTIN S < 2.0 NG/ML 03/07/2012 NICOT QN S 4992790 XCOTININ S < 2.0 NG/ML 03/07/2012 CBC 8708282 WBC 8.1 10e9/L 03/02/2012 CBC 8717472 RBC 4.44 10e12/L 03/02/2012 CBC 2954089 HGB 13.8 g/dL 03/02/2012 CBC 6935237 HCT DET 41.3 % 03/02/2012 CBC 6197092 MCV 93.0 fL 03/02/2012 CBC 2179302 MCH 31.1 pg 03/02/2012 CBC 5116836 MCHC 33.4 g/dL 03/02/2012 CBC 9939355 PLT 188 10e9/L 03/02/2012 CBC 3339790 MPV 14.3 fL 03/02/2012 CBC 1921957 LULU % 61.5 % 03/02/2012 CBC 1560789 LY % 28.8 % 03/02/2012 CBC 8721785 MON % 8.0 % 03/02/2012 CBC 7377390 EOS % 1.1 % 03/02/2012 CBC 6792929 BASO % 0.6 % 03/02/2012 CBC 8527158 RDW 14.0 % 03/02/2012 CBC 8553701 ABS LULU 4.98 10e9/L 03/02/2012 CBC 7012387 ABS LYMPH 2.33 10e9/L 03/02/2012 CBC 2549103 ABS MONO 0.65 10e9/L 03/02/2012 CBC 3401004 ABS EOS 0.09 10e9/L 03/02/2012 CBC 2492870 ABS BASO 0.05 10e9/L 03/02/2012 CBC 8475361 RDW-SD 46.3 fL 03/02/2012 LIPID GRP HDL TEST 37 MG/DL 03/02/2012 LIPID GRP TRIG 136 MG/DL 03/02/2012 LIPID GRP TEST LDL 106 MG/DL 03/02/2012 LIPID GRP CHOL 170 MG/DL 03/02/2012 LIPID GRP RCHOL/HDL 4.59 RATIO 03/02/2012 GFR CALC 5246018 GFR AA >60 ML/MIN 03/02/2012 GFR CALC 4916680 GFR NON-AA >60 ML/MIN 03/02/2012 FREE T4 6873451 FREE T4 1.09 NG/DL 03/02/2012 A1C HPLC 2562509 A1C HPLC 02963-9 5.4 % 03/02/2012 CHEM 14 0725183 AST 17 U/L 03/02/2012 CHEM 14 1896188 ALT 22 IU/L 03/02/2012 CHEM 14 0265968 BUN 15 MG/DL 03/02/2012 CHEM 14 9041019 ALBUMIN 4.0 GM/DL 03/02/2012 CHEM 14 1903623 CHLORIDE 107 MMOL/L 03/02/2012 CHEM 14 5477802 BILI TOT 0.4 MG/DL 03/02/2012 CHEM 14 9500467 ALK PHOS 83 U/L 03/02/2012 CHEM 14 4221607 SODIUM 141 MMOL/L 03/02/2012 CHEM 14 8530911 CREATININE 0.86 MG/DL 03/02/2012 CHEM 14 9194927 CALCIUM 9.5 MG/DL 03/02/2012 CHEM 14 1016975 POTASSIUM 4.0 MMOL/L 03/02/2012 CHEM 14 3212333 PROT TOT 6.6 GM/DL 03/02/2012 CHEM 14 9056036 GLUCOSE 102 MG/DL 03/02/2012 CHEM 14 3157565 BICARB 28 MMOL/L 03/02/2012 CHEM 14 5306966 ANION GAP 6 MEQ/L 03/02/2012 TSH 1499748 TSH 2.320 uIU/ML 03/02/2012 GFR CALC 0541250 GFR AA >60 ML/MIN 07/03/2011 GFR CALC 8552095 GFR NON-AA 54.0L ML/MIN 07/03/2011 CHEM 14 8384947 AST 15 U/L 07/03/2011 CHEM 14 8991695 ALT 30 IU/L 07/03/2011 CHEM 14 1049867 BUN 19 MG/DL 07/03/2011 CHEM 14 4828065 ALBUMIN 4.2 GM/DL 07/03/2011 CHEM 14 0233720 CHLORIDE 100 MMOL/L 07/03/2011 CHEM 14 1061231 BILI TOT 0.8 MG/DL 07/03/2011 CHEM 14 2496303 ALK PHOS 74 U/L 07/03/2011 CHEM 14 1308726 SODIUM 137 MMOL/L 07/03/2011 CHEM 14 8203957 CREATININE 1.03 MG/DL 07/03/2011 CHEM 14 7078463 CALCIUM 9.6 MG/DL 07/03/2011 CHEM 14 9033710 POTASSIUM 4.4 MMOL/L 07/03/2011 CHEM 14 3451241 PROT TOT 6.7 GM/DL 07/03/2011 CHEM 14 7343486 GLUCOSE 106 MG/DL 07/03/2011 CHEM 14 8131029 BICARB 28 MMOL/L 07/03/2011 CHEM 14 4479743 ANION GAP 9 MEQ/L 07/03/2011 URINALYSIS NONAUTO W/O SCOPE 65235 Specific Orma 1.010 DateTime(Free Text in Aprima) URINALYSIS NONAUTO W/O SCOPE 01974 PH 5 DateTime(Free Text in Aprima) URINALYSIS NONAUTO W/O SCOPE 13324 GLUCOSE neg DateTime( Free Text in Aprima) URINALYSIS NONAUTO W/O SCOPE 27275 Protein neg DateTime( Free Text in Aprima) URINALYSIS NONAUTO W/O SCOPE 09216 Blood 1+ DateTime(Free Text in Aprima) URINALYSIS NONAUTO W/O SCOPE 83092 Bilirubin neg DateTime(Free Text in Aprima) URINALYSIS NONAUTO W/O SCOPE 14426 Ketones neg DateTime( Free Text in Aprima) URINALYSIS NONAUTO W/O SCOPE 58936 Urobilinogen neg DateTime(Free Text in Aprima) URINALYSIS NONAUTO W/O SCOPE 72780 Nitrite neg DateTime( Free Text in Aprima) URINALYSIS NONAUTO W/O SCOPE 49037 Leukocytes neg DateTime(Free Text in Apr) Review of Systems System Result Effective Dates Constitutional No recent illness 2016 Constitutional No fever 07/20/2016 Constitutional No diaphoresis 07/20/2016 Constitutional No chills 07/20/2016 Dermatologic No erythema 07/20/2016 Dermatologic laceration 07/20/2016 Constitutional No recent illness 2015 Constitutional No anorexia 12/09/2015 Constitutional No night sweats 2015 Constitutional No chills 12/09/2015 Constitutional No diaphoresis 12/09/2015 Constitutional fatigue 12/09/2015 Constitutional No fever 12/09/2015 Constitutional insomnia 12/09/2015 Constitutional No malaise 12/09/2015 Constitutional No weight loss 12/09/2015 Constitutional weight gain 12/09/2015 Eyes No eye erythema 12/09/2015 Eyes No eye discharge 12/09/2015 Ears/Nose/Throat/Neck nasal allergies Ears/Nose/Throat/Neck nasal discharge Ears/Nose/Throat/Neck No dizziness 2015 Ears/Nose/Throat/Neck No headache 2015 Cardiovascular No chest pain/pressure Cardiovascular edema 12/09/2015 Cardiovascular dyspnea 12/09/2015 Respiratory No cough 12/09/2015 Gastrointestinal No abdominal pain 2015 Gastrointestinal constipation 12/09/2015 Gastrointestinal No diarrhea 12/09/2015 Genitourinary/Nephrology No dysuria 12/08 Musculoskeletal joint complaint 2015 Dermatologic No rash 12/09/2015 Neurologic No alteration of consciousness 12/09/2015 Psychiatric No depression 12/09/2015 Endocrine No dry or coarse skin 2015 Constitutional No recent illness 2015 Constitutional No fever 09/09/2015 Ears/Nose/Throat/Neck nasal allergies Ears/Nose/Throat/Neck nasal discharge Respiratory cough 09/09/2015 Cardiovascular No chest pain/pressure Cardiovascular No edema 09/09/2015 Dermatologic laceration 09/09/2015 Constitutional recent illness 06/11/2015 Constitutional No anorexia 06/11/2015 Constitutional No night sweats 2015 Constitutional No chills 06/11/2015 Constitutional diaphoresis 06/11/2015 Constitutional fatigue 06/11/2015 Constitutional No fever 06/11/2015 Constitutional insomnia 06/11/2015 Constitutional No malaise 06/11/2015 Constitutional weight loss 06/11/2015 Constitutional No weight gain 06/11/2015 Eyes No eye discharge 06/11/2015 Eyes No eye erythema 06/11/2015 Ears/Nose/Throat/Neck nasal allergies Ears/Nose/Throat/Neck nasal discharge Ears/Nose/Throat/Neck sinus congestion Cardiovascular No chest pain/pressure Respiratory cough 06/11/2015 Respiratory No productive sputum 2015 Gastrointestinal No abdominal pain 2015 Genitourinary/Nephrology No dysuria 06/10 Musculoskeletal joint complaint 2015 Dermatologic No rash 06/11/2015 Neurologic No alteration of consciousness 06/11/2015 Constitutional recent illness 12/11/2014 Constitutional No anorexia 12/11/2014 Constitutional No fever 12/11/2014 Eyes No eye erythema 12/11/2014 Ears/Nose/Throat/Neck nasal discharge Ears/Nose/Throat/Neck nasal allergies Ears/Nose/Throat/Neck sinus congestion Cardiovascular No dyspnea 12/11/2014 Respiratory cough 12/11/2014 Respiratory chest congestion 12/11/2014 Gastrointestinal No vomiting 12/11/2014 Dermatologic No rash 12/11/2014 Constitutional recent illness 12/04/2014 Constitutional No anorexia 12/04/2014 Constitutional No night sweats 2014 Constitutional No chills 12/04/2014 Constitutional No diaphoresis 12/04/2014 Constitutional fatigue 12/04/2014 Constitutional No fever 12/04/2014 Constitutional insomnia 12/04/2014 Constitutional No malaise 12/04/2014 Constitutional No weight loss 12/04/2014 Constitutional weight gain 12/04/2014 Constitutional obesity 12/04/2014 Eyes No eye discharge 12/04/2014 Eyes No eye erythema 12/04/2014 Ears/Nose/Throat/Neck No dizziness 2014 Ears/Nose/Throat/Neck No headache 2014 Ears/Nose/Throat/Neck nasal allergies Ears/Nose/Throat/Neck nasal discharge Cardiovascular chest pain/pressure 2014 Gastrointestinal gastroesophageal reflux 12/04/2014 Respiratory dyspnea on exertion 2014 Respiratory cough 12/04/2014 Respiratory chest congestion 12/04/2014 Gastrointestinal abdominal pain 2014 Genitourinary/Nephrology No dysuria 12/04 Genitourinary/Nephrology No pelvic pain 12/04/2014 Musculoskeletal joint complaint 2014 Dermatologic No rash 12/04/2014 Neurologic No alteration of consciousness 12/04/2014 Psychiatric anxiety 12/04/2014 Endocrine No dry or coarse skin 2014 Hematologic/Lymphatic No abnormal bleeding and bruising 12/04/2014 Constitutional No anorexia 10/23/2013 Constitutional night sweats 10/23/2013 Constitutional No recent illness 2013 Constitutional No chills 10/23/2013 Constitutional fatigue 10/23/2013 Constitutional No fever 10/23/2013 Cardiovascular No chest pain/pressure 09/2013 Gastrointestinal No abdominal pain 2013 Gastrointestinal No diarrhea 10/23/2013 Gastrointestinal No vomiting 10/23/2013 Gastrointestinal No nausea 10/23/2013 Dermatologic No rash 10/23/2013 Dermatologic No sores 10/23/2013 Constitutional recent illness 04/14/2013 Constitutional No anorexia 04/14/2013 Constitutional No night sweats 2013 Constitutional No chills 04/14/2013 Constitutional No fever 04/14/2013 Eyes No eye discharge 04/14/2013 Eyes No eye erythema 04/14/2013 Cardiovascular No chest pain/pressure Respiratory chest congestion 04/14/2013 Respiratory cough 04/14/2013 Gastrointestinal No vomiting 04/14/2013 Constitutional recent illness 04/11/2012 Constitutional No anorexia 04/11/2012 Constitutional No night sweats 2012 Constitutional No chills 04/11/2012 Constitutional No diaphoresis 04/11/2012 Constitutional No fatigue 04/11/2012 Constitutional No fever 04/11/2012 Constitutional No insomnia 04/11/2012 Constitutional No malaise 04/11/2012 Eyes No eye discharge 04/11/2012 Eyes No eye erythema 04/11/2012 Cardiovascular No chest pain/pressure Respiratory No productive sputum 2012 Respiratory No chest congestion 2012 Respiratory No cough 04/11/2012 Gastrointestinal No vomiting 04/11/2012 Gastrointestinal No nausea 04/11/2012 Dermatologic No sores 04/11/2012 Dermatologic No rash 04/11/2012 Constitutional No recent illness 2012 Constitutional No anorexia 03/07/2012 Constitutional No chills 03/07/2012 Constitutional fatigue 03/07/2012 Constitutional No fever 03/07/2012 Eyes No eye discharge 03/07/2012 Eyes No eye erythema 03/07/2012 Ears/Nose/Throat/Neck No dizziness 2012 Ears/Nose/Throat/Neck No headache 2012 Ears/Nose/Throat/Neck No nasal allergies 03/07/2012 Ears/Nose/Throat/Neck No nasal discharge 03/07/2012 Ears/Nose/Throat/Neck No sore throat Ears/Nose/Throat/Neck No otitis media Ears/Nose/Throat/Neck No sinus congestion 03/07/2012 Respiratory No productive sputum 2012 Respiratory No chest congestion 2012 Respiratory No cough 03/07/2012 Gastrointestinal No abdominal pain 2012 Gastrointestinal No constipation 2012 Gastrointestinal No diarrhea 03/07/2012 Gastrointestinal No nausea 03/07/2012 Gastrointestinal No vomiting 03/07/2012 Musculoskeletal joint complaint 2012 Neurologic No alteration of consciousness 03/07/2012 Psychiatric No anxiety 03/07/2012 Psychiatric No depression 03/07/2012 Constitutional No recent illness 2011 Constitutional No anorexia 01/13/2012 Constitutional No chills 01/13/2012 Constitutional fatigue 01/13/2012 Constitutional No fever 01/13/2012 Eyes No eye discharge 01/13/2012 Eyes No eye erythema 01/13/2012 Ears/Nose/Throat/Neck No dizziness 2011 Ears/Nose/Throat/Neck No headache 2011 Ears/Nose/Throat/Neck No nasal allergies 01/13/2012 Ears/Nose/Throat/Neck No nasal discharge 01/13/2012 Ears/Nose/Throat/Neck No otitis media Ears/Nose/Throat/Neck No sinus congestion 01/13/2012 Ears/Nose/Throat/Neck No sore throat Respiratory No productive sputum 2011 Respiratory No chest congestion 2011 Respiratory No cough 01/13/2012 Gastrointestinal No abdominal pain 2011 Gastrointestinal No constipation 2011 Gastrointestinal No diarrhea 01/13/2012 Gastrointestinal No nausea 01/13/2012 Gastrointestinal No vomiting 01/13/2012 Musculoskeletal joint complaint 2011 Neurologic No alteration of consciousness 01/13/2012 Psychiatric No anxiety 01/13/2012 Psychiatric No depression 01/13/2012 Constitutional recent illness 12/29/2011 Constitutional fatigue 12/29/2011 Constitutional No fever 12/29/2011 Eyes No eye discharge 12/29/2011 Ears/Nose/Throat/Neck headache 2011 Ears/Nose/Throat/Neck No hoarseness 12/28 Ears/Nose/Throat/Neck nasal discharge Ears/Nose/Throat/Neck sinus congestion Ears/Nose/Throat/Neck No sore throat Respiratory productive sputum 12/29/2011 Respiratory chest congestion 12/29/2011 Respiratory cough 12/29/2011 Respiratory dyspnea 12/29/2011 Respiratory No wheezing 12/29/2011 Gastrointestinal No anorexia 12/29/2011 Gastrointestinal No constipation 2011 Gastrointestinal No diarrhea 12/29/2011 Gastrointestinal No nausea 12/29/2011 Gastrointestinal No vomiting 12/29/2011 Dermatologic No rash 12/29/2011 Neurologic No ataxia 12/29/2011 Neurologic dizziness 12/29/2011 Psychiatric No anxiety 12/29/2011 Psychiatric No depression 12/29/2011 Constitutional recent illness 12/21/2011 Constitutional No anorexia 12/21/2011 Constitutional fatigue 12/21/2011 Constitutional No fever 12/21/2011 Constitutional No diaphoresis 12/21/2011 Constitutional No chills 12/21/2011 Constitutional No insomnia 12/21/2011 Eyes No eye discharge 12/21/2011 Eyes No eye erythema 12/21/2011 Gastrointestinal No abdominal pain 2011 Gastrointestinal No diarrhea 12/21/2011 Gastrointestinal No constipation 2011 Gastrointestinal No nausea 12/21/2011 Gastrointestinal No vomiting 12/21/2011 Genitourinary/Nephrology No dysuria 12/20 Musculoskeletal No joint complaint 2011 Dermatologic No rash 12/21/2011 Dermatologic No sores 12/21/2011 Neurologic No alteration of consciousness 12/21/2011 Neurologic No dizziness 12/21/2011 Neurologic No ataxia 12/21/2011 Constitutional No recent illness 2011 Constitutional No anorexia 11/25/2011 Constitutional No night sweats 2011 Constitutional No chills 11/25/2011 Constitutional No diaphoresis 11/25/2011 Constitutional No fatigue 11/25/2011 Constitutional No fever 11/25/2011 Constitutional No insomnia 11/25/2011 Constitutional No malaise 11/25/2011 Constitutional No recent illness 2011 Constitutional No anorexia 11/11/2011 Constitutional No night sweats 2011 Constitutional No chills 11/11/2011 Constitutional No diaphoresis 11/11/2011 Constitutional No fatigue 11/11/2011 Constitutional No fever 11/11/2011 Constitutional No insomnia 11/11/2011 Constitutional No malaise 11/11/2011 Constitutional No weight loss 11/11/2011 Constitutional No weight gain 11/11/2011 Constitutional obesity 11/11/2011 Eyes No eye discharge 11/11/2011 Eyes No eye erythema 11/11/2011 Ears/Nose/Throat/Neck No dizziness 2011 Ears/Nose/Throat/Neck nasal allergies Ears/Nose/Throat/Neck nasal discharge Ears/Nose/Throat/Neck No sore throat Ears/Nose/Throat/Neck No otalgia 2011 Respiratory No productive sputum 2011 Respiratory No chest congestion 2011 Respiratory No cough 11/11/2011 Gastrointestinal No abdominal pain 2011 Gastrointestinal No constipation 2011 Gastrointestinal No diarrhea 11/11/2011 Gastrointestinal No nausea 11/11/2011 Gastrointestinal No vomiting 11/11/2011 Genitourinary/Nephrology No dysuria 11/10 Dermatologic No rash 11/11/2011 Dermatologic No sores 11/11/2011 Neurologic No alteration of consciousness 11/11/2011 Constitutional recent illness 10/21/2011 Constitutional No anorexia 10/21/2011 Constitutional No night sweats 2011 Constitutional No diaphoresis 10/21/2011 Constitutional No chills 10/21/2011 Constitutional fatigue 10/21/2011 Constitutional No insomnia 10/21/2011 Constitutional No fever 10/21/2011 Eyes No eye discharge 10/21/2011 Eyes No eye erythema 10/21/2011 Cardiovascular No chest pain/pressure 06/2011 Respiratory No productive sputum 2011 Respiratory No chest congestion 2011 Respiratory No cough 10/21/2011 Gastrointestinal No vomiting 10/21/2011 Gastrointestinal No nausea 10/21/2011 Gastrointestinal No abdominal pain 2011 Genitourinary/Nephrology No dysuria 10/20 Dermatologic No rash 10/21/2011 Dermatologic No sores 10/21/2011 Constitutional recent illness 10/14/2011 Constitutional No anorexia 10/14/2011 Constitutional No night sweats 2011 Constitutional No chills 10/14/2011 Constitutional No diaphoresis 10/14/2011 Constitutional No fatigue 10/14/2011 Constitutional No insomnia 10/14/2011 Constitutional No fever 10/14/2011 Constitutional No malaise 10/14/2011 Eyes No eye discharge 10/14/2011 Eyes No eye erythema 10/14/2011 Cardiovascular No chest pain/pressure Respiratory No productive sputum 2011 Respiratory chest congestion 10/14/2011 Respiratory No cough 10/14/2011 Respiratory dyspnea on exertion 2011 Gastrointestinal No abdominal pain 2011 Genitourinary/Nephrology No dysuria 10/13 Gastrointestinal No constipation 2011 Gastrointestinal No diarrhea 10/14/2011 Gastrointestinal gas and bloating 2011 Gastrointestinal No nausea 10/14/2011 Gastrointestinal No vomiting 10/14/2011 Dermatologic No rash 10/14/2011 Dermatologic No sores 10/14/2011 Constitutional No recent illness 2011 Constitutional No anorexia 09/02/2011 Constitutional No night sweats 2011 Constitutional No chills 09/02/2011 Constitutional No diaphoresis 09/02/2011 Constitutional No fever 09/02/2011 Constitutional No insomnia 09/02/2011 Constitutional No malaise 09/02/2011 Genitourinary/Nephrology No dysuria 09/01 Eyes No eye discharge 09/02/2011 Eyes No eye erythema 09/02/2011 Cardiovascular No chest pain/pressure Respiratory No productive sputum 2011 Respiratory No chest congestion 2011 Respiratory No dyspnea 09/02/2011 Ears/Nose/Throat/Neck No dizziness 2011 Musculoskeletal No joint complaint 2011 Constitutional recent illness 08/10/2011 Constitutional No anorexia 08/10/2011 Constitutional No night sweats 2011 Constitutional No chills 08/10/2011 Constitutional No diaphoresis 08/10/2011 Constitutional No fatigue 08/10/2011 Constitutional No malaise 08/10/2011 Constitutional No fever 08/10/2011 Constitutional No insomnia 08/10/2011 Eyes No eye discharge 08/10/2011 Eyes No eye erythema 08/10/2011 Ears/Nose/Throat/Neck No dizziness 2011 Ears/Nose/Throat/Neck nasal allergies Ears/Nose/Throat/Neck nasal discharge Ears/Nose/Throat/Neck No sore throat Ears/Nose/Throat/Neck sinus congestion Respiratory dyspnea on exertion 2011 Respiratory No dyspnea 08/10/2011 Respiratory cough 08/10/2011 Respiratory chest congestion 08/10/2011 Respiratory No productive sputum 2011 Gastrointestinal No abdominal pain 2011 Gastrointestinal No vomiting 08/10/2011 Gastrointestinal No nausea 08/10/2011 Gastrointestinal No diarrhea 08/10/2011 Gastrointestinal No dyspepsia 08/10/2011 Genitourinary/Nephrology No dysuria 08/09 Dermatologic No rash 08/10/2011 Constitutional recent illness 07/14/2011 Constitutional No chills 07/14/2011 Constitutional diaphoresis 07/14/2011 Constitutional fatigue 07/14/2011 Eyes No eye discharge 07/14/2011 Gastrointestinal diarrhea 07/14/2011 Eyes No eye erythema 07/14/2011 Ears/Nose/Throat/Neck No dizziness 2011 Ears/Nose/Throat/Neck No headache 2011 Ears/Nose/Throat/Neck nasal allergies Ears/Nose/Throat/Neck nasal discharge Ears/Nose/Throat/Neck No otalgia 2011 Ears/Nose/Throat/Neck sinus congestion Ears/Nose/Throat/Neck No sore throat Cardiovascular No chest pain/pressure Respiratory productive sputum 07/14/2011 Respiratory chest congestion 07/14/2011 Respiratory chest tightness 07/14/2011 Respiratory cough 07/14/2011 Respiratory dyspnea on exertion 2011 Respiratory dyspnea 07/14/2011 Respiratory wheezing 07/14/2011 Gastrointestinal No abdominal pain 2011 Gastrointestinal No constipation 2011 Gastrointestinal No vomiting 07/14/2011 Genitourinary/Nephrology No dysuria 07/13 Dermatologic No rash 07/14/2011 Psychiatric anxiety 07/14/2011 Psychiatric No psychosis 07/14/2011 Psychiatric No suicidality 07/14/2011 Constitutional recent illness 07/02/2011 Constitutional No chills 07/02/2011 Constitutional diaphoresis 07/02/2011 Constitutional fatigue 07/02/2011 Eyes No eye discharge 07/02/2011 Eyes No eye erythema 07/02/2011 Ears/Nose/Throat/Neck No dizziness 2011 Ears/Nose/Throat/Neck No headache 2011 Ears/Nose/Throat/Neck nasal allergies Ears/Nose/Throat/Neck nasal discharge Ears/Nose/Throat/Neck No otalgia 2011 Ears/Nose/Throat/Neck sinus congestion Ears/Nose/Throat/Neck No sore throat Cardiovascular No chest pain/pressure Respiratory productive sputum 07/02/2011 Respiratory chest congestion 07/02/2011 Respiratory chest tightness 07/02/2011 Respiratory cough 07/02/2011 Respiratory dyspnea on exertion 2011 Respiratory dyspnea 07/02/2011 Respiratory wheezing 07/02/2011 Gastrointestinal No abdominal pain 2011 Gastrointestinal No constipation 2011 Gastrointestinal diarrhea 07/02/2011 Gastrointestinal No vomiting 07/02/2011 Genitourinary/Nephrology No dysuria 07/01 Dermatologic No rash 07/02/2011 Psychiatric anxiety 07/02/2011 Psychiatric No psychosis 07/02/2011 Psychiatric No suicidality 07/02/2011 Constitutional recent illness 06/25/2011 Constitutional fatigue 06/25/2011 Constitutional No fever 06/25/2011 Eyes No eye discharge 06/25/2011 Ears/Nose/Throat/Neck headache 2011 Ears/Nose/Throat/Neck No hoarseness 06/24 Ears/Nose/Throat/Neck nasal discharge 11/2011 Ears/Nose/Throat/Neck sinus congestion Ears/Nose/Throat/Neck No sore throat 11/2011 Respiratory productive sputum 06/25/2011 Respiratory chest congestion 06/25/2011 Respiratory cough 06/25/2011 Respiratory dyspnea 06/25/2011 Respiratory No wheezing 06/25/2011 Gastrointestinal No anorexia 06/25/2011 Gastrointestinal No constipation 2011 Gastrointestinal No diarrhea 06/25/2011 Gastrointestinal No nausea 06/25/2011 Gastrointestinal No vomiting 06/25/2011 Dermatologic No rash 06/25/2011 Psychiatric No anxiety 06/25/2011 Psychiatric No depression 06/25/2011 Neurologic dizziness 06/25/2011 Neurologic No ataxia 06/25/2011 Constitutional recent illness 06/16/2011 Constitutional diaphoresis 06/16/2011 Constitutional fatigue 06/16/2011 Constitutional No chills 06/16/2011 Eyes No eye discharge 06/16/2011 Eyes No eye erythema 06/16/2011 Ears/Nose/Throat/Neck No dizziness 2011 Ears/Nose/Throat/Neck No headache 2011 Ears/Nose/Throat/Neck nasal allergies 02/2011 Ears/Nose/Throat/Neck nasal discharge 02/2011 Ears/Nose/Throat/Neck No otalgia 2011 Ears/Nose/Throat/Neck sinus congestion Ears/Nose/Throat/Neck No sore throat 02/2011 Cardiovascular No chest pain/pressure 02/2011 Respiratory productive sputum 06/16/2011 Respiratory chest congestion 06/16/2011 Respiratory chest tightness 06/16/2011 Respiratory dyspnea on exertion 2011 Respiratory dyspnea 06/16/2011 Respiratory cough 06/16/2011 Respiratory wheezing 06/16/2011 Gastrointestinal No abdominal pain 2011 Gastrointestinal No constipation 2011 Gastrointestinal diarrhea 06/16/2011 Gastrointestinal No vomiting 06/16/2011 Genitourinary/Nephrology No dysuria 06/15 Dermatologic No rash 06/16/2011 Psychiatric No psychosis 06/16/2011 Psychiatric No suicidality 06/16/2011 Psychiatric anxiety 06/16/2011 Ears/Nose/Throat/Neck sinus congestion Ears/Nose/Throat/Neck sore throat 2011 Cardiovascular No chest pain/pressure Respiratory productive sputum 06/15/2011 Respiratory chest congestion 06/15/2011 Respiratory cough 06/15/2011 Respiratory No wheezing 06/15/2011 Respiratory No dyspnea 06/15/2011 Gastrointestinal No abdominal pain 2011 Gastrointestinal No constipation 2011 Gastrointestinal diarrhea 06/15/2011 Gastrointestinal No vomiting 06/15/2011 Gastrointestinal No nausea 06/15/2011 Constitutional recent illness 06/15/2011 Constitutional No night sweats 2011 Constitutional No chills 06/15/2011 Constitutional No diaphoresis 06/15/2011 Constitutional fatigue 06/15/2011 Constitutional fever 06/15/2011 Eyes No eye discharge 06/15/2011 Eyes No eye erythema 06/15/2011 Ears/Nose/Throat/Neck No dizziness 2011 Ears/Nose/Throat/Neck headache 2011 Ears/Nose/Throat/Neck nasal allergies Ears/Nose/Throat/Neck nasal discharge Ears/Nose/Throat/Neck No otalgia 2011 Constitutional No recent illness 2011 Constitutional No anorexia 06/04/2011 Constitutional No chills 06/04/2011 Constitutional fatigue 06/04/2011 Constitutional No fever 06/04/2011 Eyes No eye discharge 06/04/2011 Eyes No eye erythema 06/04/2011 Ears/Nose/Throat/Neck No dizziness 2011 Ears/Nose/Throat/Neck No sore throat Respiratory No productive sputum 2011 Gastrointestinal No abdominal pain 2011 Gastrointestinal No constipation 2011 Gastrointestinal No diarrhea 06/04/2011 Gastrointestinal No nausea 06/04/2011 Gastrointestinal No vomiting 06/04/2011 Neurologic No alteration of consciousness 06/04/2011 Psychiatric No anxiety 06/04/2011 Psychiatric No depression 06/04/2011 Ears/Nose/Throat/Neck sinus congestion Respiratory chest congestion 06/04/2011 Respiratory cough 06/04/2011 Ears/Nose/Throat/Neck postnasal drip Cardiovascular edema 06/04/2011 Cardiovascular arrhythmia 06/04/2011 Cardiovascular palpitations 06/04/2011 Genitourinary/Nephrology No dysuria 06/03 Genitourinary/Nephrology No urinary urgency 06/04/2011 Genitourinary/Nephrology No urinary frequency 06/04/2011 Musculoskeletal No stiffness 06/04/2011 Musculoskeletal No arthralgia(s) 2011 Dermatologic No rash 06/04/2011 Dermatologic No sores 06/04/2011 Constitutional No recent illness 2011 Constitutional No anorexia 05/05/2011 Constitutional No chills 05/05/2011 Constitutional fatigue 05/05/2011 Constitutional No fever 05/05/2011 Eyes No eye discharge 05/05/2011 Eyes No eye erythema 05/05/2011 Ears/Nose/Throat/Neck No dizziness 2011 Ears/Nose/Throat/Neck No sinus congestion 05/05/2011 Ears/Nose/Throat/Neck No sore throat Respiratory No productive sputum 2011 Respiratory No chest congestion 2011 Respiratory No cough 05/05/2011 Gastrointestinal No abdominal pain 2011 Gastrointestinal No constipation 2011 Gastrointestinal No diarrhea 05/05/2011 Gastrointestinal No nausea 05/05/2011 Gastrointestinal No vomiting 05/05/2011 Neurologic No alteration of consciousness 05/05/2011 Psychiatric No anxiety 05/05/2011 Psychiatric No depression 05/05/2011 Constitutional No chills 04/07/2011 Constitutional No fever 04/07/2011 Ears/Nose/Throat/Neck No dizziness 2011 Ears/Nose/Throat/Neck No headache 2011 Gastrointestinal No nausea 04/07/2011 Gastrointestinal No vomiting 04/07/2011 Gastrointestinal No diarrhea 04/07/2011 Gastrointestinal No constipation 2011 Constitutional No recent illness 2011 Constitutional No anorexia 04/07/2011 Constitutional fatigue 04/07/2011 Eyes No eye discharge 04/07/2011 Eyes No eye erythema 04/07/2011 Ears/Nose/Throat/Neck No nasal allergies 04/07/2011 Ears/Nose/Throat/Neck No nasal discharge 04/07/2011 Ears/Nose/Throat/Neck No otitis media Ears/Nose/Throat/Neck No sore throat Ears/Nose/Throat/Neck No sinus congestion 04/07/2011 Respiratory No productive sputum 2011 Respiratory No chest congestion 2011 Respiratory No cough 04/07/2011 Gastrointestinal No abdominal pain 2011 Musculoskeletal joint complaint 2011 Neurologic No alteration of consciousness 04/07/2011 Psychiatric No anxiety 04/07/2011 Psychiatric No depression 04/07/2011 Gastrointestinal No vomiting 03/17/2011 Gastrointestinal No abdominal pain 2011 Gastrointestinal No constipation 2011 Gastrointestinal No diarrhea 03/17/2011 Genitourinary/Nephrology No dysuria 03/17 Constitutional No recent illness 2011 Constitutional No chills 03/17/2011 Constitutional fatigue 03/17/2011 Constitutional No diaphoresis 03/17/2011 Constitutional No fever 03/17/2011 Eyes No eye discharge 03/17/2011 Eyes No eye erythema 03/17/2011 Ears/Nose/Throat/Neck No hoarseness 03/17 Ears/Nose/Throat/Neck nasal discharge Ears/Nose/Throat/Neck headache 2011 Ears/Nose/Throat/Neck sinus congestion Ears/Nose/Throat/Neck No otitis media Ears/Nose/Throat/Neck No sore throat Cardiovascular No chest pain/pressure Respiratory No productive sputum 2011 Respiratory No chest congestion 2011 Respiratory No chest tightness 2011 Respiratory No cough 03/17/2011 Gastrointestinal No nausea 03/17/2011 Cardiovascular No dyspnea 01/21/2011 Respiratory No productive sputum 2010 Respiratory No chest congestion 2010 Respiratory No cough 01/21/2011 Gastrointestinal No nausea 01/21/2011 Gastrointestinal No vomiting 01/21/2011 Gastrointestinal No abdominal pain 2010 Gastrointestinal No constipation 2010 Gastrointestinal No diarrhea 01/21/2011 Genitourinary/Nephrology No dysuria 01/21 Dermatologic skin lesion 01/21/2011 Constitutional No recent illness 2010 Constitutional No chills 01/21/2011 Constitutional No fatigue 01/21/2011 Constitutional No fever 01/21/2011 Constitutional No insomnia 01/21/2011 Eyes No eye discharge 01/21/2011 Eyes No eye erythema 01/21/2011 Ears/Nose/Throat/Neck No dizziness 2010 Ears/Nose/Throat/Neck No headache 2010 Cardiovascular No chest pain/pressure 08/2010 Cardiovascular No edema 01/21/2011 Constitutional recent illness 11/24/2010 Constitutional No fever 11/24/2010 Constitutional fatigue 11/24/2010 Eyes No eye discharge 11/24/2010 Ears/Nose/Throat/Neck No sore throat 11/2010 Ears/Nose/Throat/Neck sinus congestion Ears/Nose/Throat/Neck nasal discharge 11/2010 Ears/Nose/Throat/Neck No hoarseness 11/24 Ears/Nose/Throat/Neck headache 2010 Cardiovascular No chest pain/pressure 11/2010 Respiratory chest congestion 11/24/2010 Respiratory cough 11/24/2010 Respiratory productive sputum 11/24/2010 Respiratory dyspnea 11/24/2010 Respiratory No wheezing 11/24/2010 Gastrointestinal No nausea 11/24/2010 Gastrointestinal No vomiting 11/24/2010 Gastrointestinal No constipation 2010 Gastrointestinal No diarrhea 11/24/2010 Gastrointestinal No anorexia 11/24/2010 Dermatologic No rash 11/24/2010 Respiratory dyspnea on exertion 2010 Gastrointestinal No nausea 11/20/2010 Gastrointestinal No vomiting 11/20/2010 Gastrointestinal No diarrhea 11/20/2010 Gastrointestinal No constipation 2010 Genitourinary/Nephrology No dysuria 11/20 Dermatologic No rash 11/20/2010 Constitutional recent illness 11/20/2010 Constitutional fatigue 11/20/2010 Constitutional fever 11/20/2010 Eyes No eye discharge 11/20/2010 Eyes No eye erythema 11/20/2010 Ears/Nose/Throat/Neck facial pain 2010 Ears/Nose/Throat/Neck headache 2010 Ears/Nose/Throat/Neck hoarseness 2010 Ears/Nose/Throat/Neck nasal discharge 07/2010 Ears/Nose/Throat/Neck sinus congestion Ears/Nose/Throat/Neck sore throat 2010 Cardiovascular No chest pain/pressure 07/2010 Respiratory No productive sputum 2010 Respiratory chest congestion 11/20/2010 Respiratory cough 11/20/2010 Respiratory No wheezing 11/20/2010 Constitutional No chills 11/06/2010 Constitutional No fever 11/06/2010 Musculoskeletal No myalgias 11/06/2010 Dermatologic No rash 11/06/2010 Neurologic No ataxia 11/06/2010 Neurologic No dizziness 11/06/2010 Neurologic No pain, facial 11/06/2010 Psychiatric No anxiety 11/06/2010 Gastrointestinal No dyspepsia 11/06/2010 Musculoskeletal No muscle weakness 2010 Psychiatric No depression 11/06/2010 Eyes No eye discharge 11/06/2010 Eyes No eye erythema 11/06/2010 Constitutional recent illness 11/06/2010 Ears/Nose/Throat/Neck No sore throat Ears/Nose/Throat/Neck nasal discharge Ears/Nose/Throat/Neck No facial pain Cardiovascular No chest pain/pressure Respiratory No productive sputum 2010 Respiratory No dyspnea on exertion 2010 Gastrointestinal No nausea 11/06/2010 Gastrointestinal No vomiting 11/06/2010 Constitutional No fatigue 11/06/2010 Ears/Nose/Throat/Neck headache 2010 Ears/Nose/Throat/Neck No sinusitis 2010 Cardiovascular No dyspnea 11/06/2010 Cardiovascular No edema 11/06/2010 Cardiovascular No fatigue 11/06/2010 Cardiovascular No syncope 11/06/2010 Respiratory No chest tightness 2010 Respiratory No cigarette smoking 2010 Respiratory No cough 11/06/2010 Respiratory No dyspnea 11/06/2010 Respiratory No wheezing 11/06/2010 Gastrointestinal No constipation 2010 Gastrointestinal No diarrhea 11/06/2010 Physical Exam Exam Name System Name Item Name Status Result Effective Dates Notes Full Exam - Dermatology Constitutional general appearance Overall: well nourished 07/20/2016 None Full Exam - Dermatology Constitutional general appearance Overall: well developed 07/20/2016 None Full Exam - Dermatology Constitutional general appearance Overall: in no acute distress 07/20/2016 None Full Exam - Dermatology Constitutional general appearance Overall: of normal body habitus 07/20/2016 None Full Exam - Dermatology Constitutional general appearance Overall: well groomed 07/20/2016 None Full Exam - Dermatology Psychiatric orientation Overall: oriented to person, place and time 07/20/2016 None Full Exam - Dermatology Integument insp & palp - left upper extremity Lesion: skin tear 07/20/2016 None Full Exam - Dermatology Integument insp & palp - left upper extremity Distribution: localized 07/20/2016 None Full Exam - Dermatology Integument insp & palp - left upper extremity Location: on the hand 07/20/2016 None Full Exam - Dermatology Integument insp & palp - left upper extremity Shape: irregular 07/20/2016 None Full Exam - Dermatology Integument insp & palp - right upper extremity Location: on the hand 07/20/2016 skin tear dorsal surface Full Exam - Dermatology Integument insp & palp - right upper extremity Shape: irregular 07/20/2016 None Full Exam - General Constitutional general appearance Overall: well nourished 12/09/2015 None Full Exam - General Constitutional general appearance Overall: well developed 12/09/2015 None Full Exam - General Eyes conjunctiva/ eyelids Overall: conjunctiva clear 12/09/2015 None Full Exam - General Eyes pupils and irises Overall: pupils equal, round, reactive to light and accomodation 12/09/2015 None Full Exam - General Ears/Nose/Throat otoscopic exam Overall: external auditory canals clear 12/09/2015 None Full Exam - General Ears/Nose/Throat oral cavity/pharynx/larynx Overall: oral mucosa clear 12/09/2015 None Full Exam - General Respiratory auscultation Overall: breath sounds clear bilaterally 12/09/2015 None Full Exam - General Respiratory respiratory effort/rhythm Overall: no retractions 12/09/2015 None Full Exam - General Respiratory respiratory effort/rhythm Overall: normal rate 12/09/2015 None Full Exam - General Cardiovascular auscultation of heart Overall: regular rate 12/09/2015 None Full Exam - General Cardiovascular auscultation of heart Overall: normal heart sounds 12/09/2015 None Full Exam - General Cardiovascular extremities Overall: no clubbing 12/09/2015 None Full Exam - General Abdomen abdominal exam Overall: normal bowel sounds 12/09/2015 None Full Exam - General Abdomen abdominal exam Contour: rounded 12/09/2015 None Full Exam - General Lymphatic neck nodes Overall: anterior cervical chain benign 12/09/2015 None Full Exam - General Lymphatic neck nodes Overall: posterior cervical chain benign 12/09/2015 None Full Exam - General Musculoskeletal digits and nails Overall: no clubbing 12/09/2015 None Full Exam - General Musculoskeletal digits and nails Overall: digits benign 12/09/2015 None Full Exam - General Neurologic cranial nerves Overall: cranial nerves 2-12 grossly intact 12/09/2015 None Full Exam - General Psychiatric orientation/consciousness Overall: oriented to person, place and time 12/09/2015 None Full Exam - General Ears/Nose/Throat otoscopic exam Overall: tympanic membranes clear 12/09/2015 None Full Exam - Dermatology Constitutional general appearance Overall: well nourished 09/09/2015 None Full Exam - Dermatology Constitutional general appearance Overall: well developed 09/09/2015 None Full Exam - Dermatology Constitutional general appearance Overall: in no acute distress 09/09/2015 None Full Exam - Dermatology Psychiatric orientation Overall: oriented to person, place and time 09/09/2015 None Full Exam - Dermatology Respiratory auscultation Overall: breath sounds clear bilaterally 09/09/2015 None Full Exam - Dermatology Respiratory respiratory effort/rhythm Overall: no retractions 09/09/2015 None Full Exam - Dermatology Respiratory respiratory effort/rhythm Overall: normal rate 09/09/2015 None Full Exam - Dermatology Cardiovascular peripheral vascular system Overall: warm extremities 09/09/2015 None Full Exam - Dermatology Integument insp & palp - right upper extremity Location: on the forearm 09/09/2015 skin tears x 2 right forearm -cleansed with sterile saline, apply bactroban ointment and covered with nonstick dressing Full Exam - Dermatology Extremities inspection & palpation Overall: no clubbing 09/09/2015 None Full Exam - Dermatology Extremities inspection & palpation Overall: no cyanosis 09/09/2015 None Full Exam - Dermatology Extremities inspection & palpation Overall: good capillary refill 09/09/2015 None Full Exam - Dermatology Musculoskeletal gait and station Overall: normal gait 09/09/2015 None Full Exam - Dermatology Musculoskeletal gait and station Overall: normal station 09/09/2015 None Full Exam - Dermatology Psychiatric mood and affect Overall: normal mood and affect 09/09/2015 None Full Exam - Dermatology Ears/Nose/Throat oropharynx Overall: clear oral mucosa 09/09/2015 None Full Exam - General 1994 Constitutional general appearance Overall: well developed 06/11/2015 None Full Exam - General 1994 Constitutional general appearance Overall: in no acute distress 06/11/2015 None Full Exam - General 1994 Constitutional general appearance Overall: well nourished 06/11/2015 None Full Exam - General 1994 Eyes conjunctiva /eyelids Overall: conjunctiva clear 06/11/2015 None Full Exam - General 1994 Eyes conjunctiva /eyelids Overall: cornea clear 06/11/2015 None Full Exam - General 1994 Eyes conjunctiva /eyelids Overall: eyelids normal 06/11/2015 None Full Exam - General 1994 Respiratory auscultation Overall: breath sounds clear bilaterally 06/11/2015 None Full Exam - General 1994 Respiratory respiratory effort/rhythm Overall: no retractions 06/11/2015 None Full Exam - General 1994 Respiratory respiratory effort/rhythm Overall: normal rate 06/11/2015 None Full Exam - General 1994 Cardiovascular auscultation of heart Overall: regular rate 06/11/2015 None Full Exam - General 1994 Cardiovascular auscultation of heart Overall: normal heart sounds 06/11/2015 None Full Exam - General 1994 Cardiovascular auscultation of heart Overall: no murmurs 06/11/2015 None Full Exam - General 1994 Neurologic cranial nerves Overall: crainial nerves 2 - 12 grossly intact 06/11/2015 None Full Exam - General 1994 Psychiatric orientation/consciousness Overall: oriented to person, place and time 06/11/2015 None Full Exam - General 1994 Ears/Nose/Throat otoscopic exam Overall: external auditory canals clear 06/11/2015 None Full Exam - General 1994 Ears/Nose/Throat otoscopic exam Overall: tympanic membranes clear 06/11/2015 None Full Exam - General 1994 Lymphatic neck nodes Overall: posterior cervical chain benign 06/11/2015 None Full Exam - General 1994 Lymphatic neck nodes Overall: anterior cervical chain benign 06/11/2015 None Full Exam - ENT Constitutional general appearance Overall: well nourished 12/11/2014 None Full Exam - ENT Constitutional general appearance Overall: well developed 12/11/2014 None Full Exam - ENT Constitutional general appearance Overall: in no acute distress 12/11/2014 None Full Exam - ENT Neurologic orientation Overall: oriented to person, place and time 12/11/2014 None Full Exam - ENT Respiratory auscultation Overall: breath sounds clear bilaterally 12/11/2014 None Full Exam - ENT Respiratory inspection Overall: no retractions 12/11/2014 None Full Exam - ENT Respiratory inspection Overall: normal rate None Full Exam - ENT Cardiovascular auscultation of heart Overall: regular rate 12/11/2014 None Full Exam - ENT Cardiovascular auscultation of heart Overall: normal heart sounds 12/11/2014 None Full Exam - ENT Cardiovascular auscultation of heart Overall: no murmurs 12/11/2014 None Full Exam - ENT Ears/Nose/Throat otoscopic exam Left tympanic membrane: air -fluid level 12/11/2014 None Full Exam - ENT Ears/Nose/Throat otoscopic exam Right tympanic membrane: air-fluid level 12/11/2014 None Full Exam - ENT Ears/Nose/Throat oropharynx Posterior Pharynx: clear post nasal drainage 12/11/2014 None Full Exam - ENT Integument inspection of skin Overall: no rash, lesions 12/11/2014 None Full Exam - General Constitutional general appearance Overall: well nourished 12/04/2014 None Full Exam - General Constitutional general appearance Overall: well developed 12/04/2014 None Full Exam - General Eyes conjunctiva/ eyelids Overall: conjunctiva clear 12/04/2014 None Full Exam - General Eyes pupils and irises Overall: pupils equal, round, reactive to light and accomodation 12/04/2014 None Full Exam - General Ears/Nose/Throat otoscopic exam Overall: external auditory canals clear 12/04/2014 None Full Exam - General Ears/Nose/Throat oral cavity/pharynx/larynx Overall: oral mucosa clear 12/04/2014 None Full Exam - General Respiratory auscultation Overall: breath sounds clear bilaterally 12/04/2014 None Full Exam - General Respiratory respiratory effort/rhythm Overall: no retractions 12/04/2014 None Full Exam - General Respiratory respiratory effort/rhythm Overall: normal rate 12/04/2014 None Full Exam - General Cardiovascular auscultation of heart Overall: regular rate 12/04/2014 None Full Exam - General Cardiovascular auscultation of heart Overall: normal heart sounds 12/04/2014 None Full Exam - General Cardiovascular extremities Overall: no clubbing 12/04/2014 None Full Exam - General Abdomen abdominal exam Overall: normal bowel sounds 12/04/2014 None Full Exam - General Lymphatic neck nodes Overall: anterior cervical chain benign 12/04/2014 None Full Exam - General Lymphatic neck nodes Overall: posterior cervical chain benign 12/04/2014 None Full Exam - General Musculoskeletal digits and nails Overall: no clubbing 12/04/2014 None Full Exam - General Musculoskeletal digits and nails Overall: digits benign 12/04/2014 None Full Exam - General Neurologic cranial nerves Overall: cranial nerves 2-12 grossly intact 12/04/2014 None Full Exam - General Psychiatric orientation/consciousness Overall: oriented to person, place and time 12/04/2014 None Full Exam - General Ears/Nose/Throat otoscopic exam Left tympanic membrane: air -fluid level 12/04/2014 None Full Exam - General Ears/Nose/Throat otoscopic exam Right tympanic membrane: air-fluid level 12/04/2014 None Full Exam - General Abdomen abdominal exam Contour: rounded 12/04/2014 None Full Exam - General Abdomen abdominal exam Left upper quadrant: tender to palpation 12/04/2014 None Full Exam - General Abdomen abdominal exam Right upper quadrant: tender to palpation 12/04/2014 over lap band port Full Exam - General 1994 Constitutional general appearance Overall: well developed 10/23/2013 None Full Exam - General 1994 Constitutional general appearance Overall: in no acute distress 10/23/2013 None Full Exam - General 1994 Constitutional general appearance Overall: well nourished 10/23/2013 None Full Exam - General 1994 Psychiatric orientation/consciousness Overall: oriented to person, place and time 10/23/2013 None Full Exam - General 1994 Neurologic cranial nerves Overall: crainial nerves 2 - 12 grossly intact 10/23/2013 None Full Exam - General 1994 Cardiovascular auscultation of heart Overall: regular rate 10/23/2013 None Full Exam - General 1994 Cardiovascular auscultation of heart Overall: normal heart sounds 10/23/2013 None Full Exam - General 1994 Cardiovascular auscultation of heart Overall: no murmurs 10/23/2013 None Full Exam - General 1994 Cardiovascular extremities Edema present: pitting 10/23/2013 None Full Exam - General 1994 Cardiovascular extremities Edema present: severity 1+ - 4 +: 11+ 10/23/2013 None Full Exam - General 1994 Cardiovascular extremities Edema present: to leg 10/23/2013 None Full Exam - General 1994 Cardiovascular extremities Edema present: bilateral 10/23/2013 None Full Exam - General 1994 Respiratory auscultation Overall: breath sounds clear bilaterally 10/23/2013 None Full Exam - General 1994 Respiratory respiratory effort/rhythm Overall: normal rate 10/23/2013 None Full Exam - General 1994 Respiratory respiratory effort/rhythm Overall: no retractions 10/23/2013 None Full Exam - General 1994 Eyes conjunctiva /eyelids Overall: conjunctiva clear 10/23/2013 None Full Exam - General 1994 Eyes conjunctiva /eyelids Overall: eyelids normal 10/23/2013 None Full Exam - General 1994 Eyes conjunctiva /eyelids Overall: cornea clear 10/23/2013 None Full Exam - ENT Constitutional general appearance Overall: well nourished 04/14/2013 None Full Exam - ENT Constitutional general appearance Overall: well developed 04/14/2013 None Full Exam - ENT Constitutional general appearance Overall: in no acute distress 04/14/2013 None Full Exam - ENT Neurologic orientation Overall: oriented to person, place and time 04/14/2013 None Full Exam - ENT Lymphatic palpation of lymph nodes Overall: anterior cervical chain benign 04/14/2013 None Full Exam - ENT Lymphatic palpation of lymph nodes Overall: posterior cervical chain benign 04/14/2013 None Full Exam - ENT Cardiovascular auscultation of heart Overall: regular rate 04/14/2013 None Full Exam - ENT Cardiovascular auscultation of heart Overall: normal heart sounds 04/14/2013 None Full Exam - ENT Cardiovascular auscultation of heart Overall: no murmurs 04/14/2013 None Full Exam - ENT Respiratory auscultation Overall: breath sounds clear bilaterally 04/14/2013 None Full Exam - ENT Respiratory inspection Overall: no retractions 04/14/2013 None Full Exam - ENT Respiratory inspection Overall: normal rate None Full Exam - ENT Face and Head palpation Left maxillary sinus: tender 04/14/2013 None Full Exam - ENT Face and Head palpation Right maxillary sinus: tender 04/14/2013 None Full Exam - ENT Ears/Nose/Throat otoscopic exam Overall: external auditory canals normal 04/14/2013 None Full Exam - ENT Ears/Nose/Throat otoscopic exam Overall: tympanic membranes normal 04/14/2013 None Full Exam - ENT Ears/Nose/Throat oropharynx Overall: oral mucosa clear 04/14/2013 None Full Exam - General 1994 Constitutional general appearance Overall: well developed 01/05/2013 None Full Exam - General 1994 Constitutional general appearance Overall: in no acute distress 01/05/2013 None Full Exam - General 1994 Constitutional general appearance Overall: well nourished 01/05/2013 None Full Exam - General 1994 Psychiatric orientation/consciousness Overall: oriented to person, place and time 01/05/2013 None Full Exam - General 1994 Musculoskeletal spine, ribs and pelvis Posture: a normal exam 01/05/2013 tender right low back musculature Full Exam - ENT Constitutional general appearance Overall: well nourished 04/11/2012 None Full Exam - ENT Constitutional general appearance Overall: well developed 04/11/2012 None Full Exam - ENT Constitutional general appearance Overall: in no acute distress 04/11/2012 None Full Exam - ENT Ears/Nose/Throat otoscopic exam Left tympanic membrane: air -fluid level 04/11/2012 None Full Exam - ENT Ears/Nose/Throat otoscopic exam Right tympanic membrane: air-fluid level 04/11/2012 None Full Exam - ENT Ears/Nose/Throat oropharynx Overall: oral mucosa clear 04/11/2012 None Full Exam - ENT Face and Head palpation Left maxillary sinus: tender 04/11/2012 None Full Exam - ENT Face and Head palpation Right maxillary sinus: tender 04/11/2012 None Full Exam - ENT Face and Head palpation Left frontal sinus: tender 04/11/2012 None Full Exam - ENT Face and Head palpation Right frontal sinus: tender 04/11/2012 None Full Exam - ENT Respiratory auscultation Overall: breath sounds clear bilaterally 04/11/2012 None Full Exam - ENT Cardiovascular auscultation of heart Overall: regular rate 04/11/2012 None Full Exam - ENT Cardiovascular auscultation of heart Overall: normal heart sounds 04/11/2012 None Full Exam - ENT Neurologic orientation Overall: oriented to person, place and time 04/11/2012 None Full Exam - ENT Ears/Nose/Throat oropharynx Posterior Pharynx: a normal exam 04/11/2012 None Full Exam - General Constitutional general appearance Overall: well nourished 03/07/2012 None Full Exam - General Constitutional general appearance Overall: well developed 03/07/2012 None Full Exam - General Eyes conjunctiva/ eyelids Overall: conjunctiva clear 03/07/2012 None Full Exam - General Eyes pupils and irises Overall: pupils equal, round, reactive to light and accomodation 03/07/2012 None Full Exam - General Ears/Nose/Throat otoscopic exam Overall: external auditory canals clear 03/07/2012 None Full Exam - General Ears/Nose/Throat otoscopic exam Overall: tympanic membranes clear 03/07/2012 None Full Exam - General Ears/Nose/Throat oral cavity/pharynx/larynx Overall: oral mucosa clear 03/07/2012 None Full Exam - General Respiratory auscultation Overall: breath sounds clear bilaterally 03/07/2012 None Full Exam - General Respiratory respiratory effort/rhythm Overall: no retractions 03/07/2012 None Full Exam - General Respiratory respiratory effort/rhythm Overall: normal rate 03/07/2012 None Full Exam - General Cardiovascular auscultation of heart Overall: regular rate 03/07/2012 None Full Exam - General Cardiovascular auscultation of heart Overall: normal heart sounds 03/07/2012 None Full Exam - General Cardiovascular extremities Overall: no clubbing 03/07/2012 None Full Exam - General Neurologic cranial nerves Overall: cranial nerves 2-12 grossly intact 03/07/2012 None Full Exam - General Psychiatric orientation/consciousness Overall: oriented to person, place and time 03/07/2012 None Full Exam - General Constitutional general appearance Overall: well nourished 01/13/2012 None Full Exam - General Constitutional general appearance Overall: well developed 01/13/2012 None Full Exam - General Eyes conjunctiva/ eyelids Overall: conjunctiva clear 01/13/2012 None Full Exam - General Eyes pupils and irises Overall: pupils equal, round, reactive to light and accomodation 01/13/2012 None Full Exam - General Ears/Nose/Throat otoscopic exam Overall: external auditory canals clear 01/13/2012 None Full Exam - General Ears/Nose/Throat otoscopic exam Overall: tympanic membranes clear 01/13/2012 None Full Exam - General Ears/Nose/Throat oral cavity/pharynx/larynx Overall: oral mucosa clear 01/13/2012 None Full Exam - General Respiratory auscultation Overall: breath sounds clear bilaterally 01/13/2012 None Full Exam - General Respiratory respiratory effort/rhythm Overall: no retractions 01/13/2012 None Full Exam - General Respiratory respiratory effort/rhythm Overall: normal rate 01/13/2012 None Full Exam - General Cardiovascular auscultation of heart Overall: regular rate 01/13/2012 None Full Exam - General Cardiovascular auscultation of heart Overall: normal heart sounds 01/13/2012 None Full Exam - General Abdomen abdominal exam Overall: no tenderness 01/13/2012 None Full Exam - General Abdomen abdominal exam Overall: normal bowel sounds 01/13/2012 None Full Exam - General Lymphatic neck nodes Overall: anterior cervical chain benign 01/13/2012 None Full Exam - General Lymphatic neck nodes Overall: posterior cervical chain benign 01/13/2012 None Full Exam - General Neurologic cranial nerves Overall: cranial nerves 2-12 grossly intact 01/13/2012 None Full Exam - General Psychiatric orientation/consciousness Overall: oriented to person, place and time 01/13/2012 None Full Exam - General Cardiovascular extremities Overall: no clubbing 01/13/2012 None Full Exam - General Respiratory auscultation Overall: breath sounds clear bilaterally 12/29/2011 None Full Exam - General Respiratory respiratory effort/rhythm Overall: no retractions 12/29/2011 None Full Exam - General Respiratory respiratory effort/rhythm Overall: normal rate 12/29/2011 None Full Exam - General Cardiovascular auscultation of heart Overall: regular rate 12/29/2011 None Full Exam - General Cardiovascular auscultation of heart Overall: normal heart sounds 12/29/2011 None Full Exam - General Cardiovascular extremities Overall: no clubbing 12/29/2011 None Full Exam - General Abdomen abdominal exam Overall: no tenderness 12/29/2011 None Full Exam - General Abdomen abdominal exam Overall: normal bowel sounds 12/29/2011 None Full Exam - General Abdomen abdominal exam Contour: rounded 12/29/2011 None Full Exam - General Lymphatic neck nodes Overall: shotty lymphadenopathy 12/29/2011 None Full Exam - General Musculoskeletal head and neck Overall: head atraumatic 12/29/2011 None Full Exam - General Musculoskeletal head and neck Overall: cervical spine benign 12/29/2011 None Full Exam - General Integument inspection of skin Overall: no rash, lesions 12/29/2011 but has bruising extensively over forearms and hands from IV's and lab draws Full Exam - General Neurologic gait Overall: no ataxia, no unsteadiness 12/29/2011 None Full Exam - General Constitutional general appearance Overall: well nourished 12/29/2011 None Full Exam - General Constitutional general appearance Overall: well developed 12/29/2011 None Full Exam - General Eyes conjunctiva/ eyelids Overall: conjunctiva clear 12/29/2011 None Full Exam - General Eyes pupils and irises Overall: pupils equal, round, reactive to light and accomodation 12/29/2011 None Full Exam - General Ears/Nose/Throat otoscopic exam Overall: external auditory canals clear 12/29/2011 None Full Exam - General Ears/Nose/Throat otoscopic exam Left tympanic membrane: air -fluid level 12/29/2011 None Full Exam - General Ears/Nose/Throat otoscopic exam Right tympanic membrane: air-fluid level 12/29/2011 None Full Exam - General Ears/Nose/Throat oral cavity/pharynx/larynx Posterior Pharynx: clear post nasal drainage 12/29/2011 None Full Exam - General Ears/Nose/Throat oral cavity/pharynx/larynx Oropharynx: erythema 12/29/2011 None Full Exam - General Psychiatric orientation/consciousness Overall: oriented to person, place and time 12/29/2011 None Full Exam - General Psychiatric orientation/consciousness Level of consciousness: alert 12/29/2011 None Full Exam - General Psychiatric mood and affect Overall: normal mood and affect 12/29/2011 None Full Exam - General Psychiatric mood and affect Affect: a normal exam 12/29/2011 None Full Exam - General 1994 Ears/Nose/Throat external nose Overall: benign appearance 12/21/2011 None Full Exam - General 1994 Ears/Nose/Throat external nose Overall: no masses 12/21/2011 None Full Exam - General 1994 Ears/Nose/Throat otoscopic exam External auditory canal: a normal exam 12/21/2011 None Full Exam - General 1994 Ears/Nose/Throat otoscopic exam External auditory canal: minimal cerumen 12/21/2011 None Full Exam - General 1994 Neck inspection of neck Overall: normal size 12/21/2011 None Full Exam - General 1994 Neck inspection of neck Overall: normal appearance 12/21/2011 None Full Exam - General 1994 Neck inspection of neck Overall: no masses 12/21/2011 None Full Exam - General 1994 Respiratory auscultation Upper lung field: a normal exam 12/21/2011 None Full Exam - General 1994 Respiratory respiratory effort/rhythm Overall: no retractions 12/21/2011 None Full Exam - General 1994 Respiratory respiratory effort/rhythm Overall: normal rate 12/21/2011 None Full Exam - General 1994 Cardiovascular auscultation of heart Rhythm: regularly irregular rhythm 12/21/2011 None Full Exam - General 1994 Abdomen abdominal exam Overall: no tenderness 12/21/2011 None Full Exam - General 1994 Abdomen abdominal exam Overall: normal bowel sounds 12/21/2011 None Full Exam - General 1994 Abdomen abdominal exam Contour: rounded 12/21/2011 None Full Exam - General 1994 Constitutional general appearance Overall: well developed 12/21/2011 None Full Exam - General 1994 Constitutional general appearance Overall: well nourished 12/21/2011 None Full Exam - General 1994 Constitutional general appearance Evidence of Distress: mild distress 12/21/2011 None Full Exam - General 1994 Eyes conjunctiva /eyelids Overall: conjunctiva clear 12/21/2011 None Full Exam - General 1994 Eyes conjunctiva /eyelids Overall: cornea clear 12/21/2011 None Full Exam - General 1994 Eyes conjunctiva /eyelids Overall: eyelids normal 12/21/2011 None Full Exam - General 1994 Ears/Nose/Throat external ear Overall: normal appearance 12/21/2011 None Full Exam - General 1994 Ears/Nose/Throat external ear Overall: no masses 12/21/2011 None Full Exam - General 1995 Ears/Nose/Throat external ear Overall: normal mastoids 12/21/2011 None Full Exam - General 1994 Neurologic gait Overall: no ataxia, no unsteadiness 12/21/2011 None Full Exam - General 1994 Psychiatric orientation/consciousness Overall: oriented to person, place and time 12/21/2011 None Full Exam - General 1994 Psychiatric mood and affect Overall: normal mood and affect 12/21/2011 None Full Exam - General 1994 Psychiatric mood and affect Mood: happy 12/21/2011 None Full Exam - General 1994 Respiratory auscultation Lower lung field: crackles 12/21/2011 in the bases Full Exam - General 1994 Ears/Nose/Throat otoscopic exam External auditory canal: minimal cerumen 12/21/2011 None Full Exam - General 1994 Ears/Nose/Throat otoscopic exam External auditory canal: minimal cerumen 12/21/2011 None Full Exam - General 1995 Ears/Nose/Throat otoscopic exam External auditory canal: minimal cerumen 12/21/2011 None Full Exam - General 1994 Ears/Nose/Throat otoscopic exam External auditory canal: a normal exam 12/21/2011 None Full Exam - General 1995 Ears/Nose/Throat otoscopic exam External auditory canal: a normal exam 12/21/2011 None Full Exam - General 1995 Ears/Nose/Throat otoscopic exam External auditory canal: a normal exam 12/21/2011 None Full Exam - General 1994 Lymphatic neck nodes Overall: shotty lymphadenopathy 12/21/2011 None Full Exam - Dermatology Constitutional general appearance Overall: well nourished 11/25/2011 None Full Exam - Dermatology Constitutional general appearance Overall: well developed 11/25/2011 None Full Exam - Dermatology Constitutional general appearance Overall: in no acute distress 11/25/2011 None Full Exam - Dermatology Ears/Nose/Throat lips/teeth/gingiva Right lower lip: erythema 11/25/2011 stitches noted to inner lower lip on the right-with surrounding erythema, swelling, and bruising. TTP Full Exam - Dermatology Psychiatric orientation Overall: oriented to person, place and time 11/25/2011 None Full Exam - General 1995 Constitutional general appearance Overall: well developed 11/11/2011 None Full Exam - General 1995 Constitutional general appearance Overall: well nourished 11/11/2011 None Full Exam - General 1995 Eyes conjunctiva /eyelids Overall: conjunctiva clear 11/11/2011 None Full Exam - General 1995 Eyes conjunctiva /eyelids Overall: cornea clear 11/11/2011 None Full Exam - General 1994 Eyes conjunctiva /eyelids Overall: eyelids normal 11/11/2011 None Full Exam - General 1995 Ears/Nose/Throat external nose Overall: benign appearance 11/11/2011 None Full Exam - General 1995 Ears/Nose/Throat external nose Overall: no masses 11/11/2011 None Full Exam - General 1994 Ears/Nose/Throat otoscopic exam Overall: external auditory canals clear 11/11/2011 None Full Exam - General 1995 Ears/Nose/Throat otoscopic exam Tympanic membrane: a normal exam 11/11/2011 None Full Exam - General 1995 Ears/Nose/Throat otoscopic exam Tympanic membrane: air- fluid level 11/11/2011 None Full Exam - General 1994 Neck inspection of neck Overall: normal size 11/11/2011 None Full Exam - General 1994 Neck inspection of neck Overall: normal appearance 11/11/2011 None Full Exam - General 1994 Neck inspection of neck Overall: no masses 11/11/2011 None Full Exam - General 1994 Respiratory auscultation Overall: breath sounds clear bilaterally 11/11/2011 None Full Exam - General 1994 Respiratory respiratory effort/rhythm Overall: no retractions 11/11/2011 None Full Exam - General 1994 Respiratory respiratory effort/rhythm Overall: normal rate 11/11/2011 None Full Exam - General 1994 Cardiovascular extremities Overall: no clubbing 11/11/2011 None Full Exam - General 1994 Cardiovascular auscultation of heart Rhythm: regularly irregular rhythm 11/11/2011 None Full Exam - General 1994 Lymphatic neck nodes Overall: anterior cervical chain benign 11/11/2011 None Full Exam - General 1994 Lymphatic neck nodes Overall: posterior cervical chain benign 11/11/2011 None Full Exam - General 1994 Neurologic gait Overall: no ataxia, no unsteadiness 11/11/2011 None Full Exam - General 1994 Psychiatric orientation/consciousness Overall: oriented to person, place and time 11/11/2011 None Full Exam - General 1994 Psychiatric mood and affect Overall: normal mood and affect 11/11/2011 None Full Exam - General 1994 Psychiatric mood and affect Mood: happy 11/11/2011 None Full Exam - ENT Constitutional general appearance Overall: well nourished 10/21/2011 None Full Exam - ENT Constitutional general appearance Overall: well developed 10/21/2011 None Full Exam - ENT Constitutional general appearance Overall: in no acute distress 10/21/2011 None Full Exam - ENT Neurologic orientation Overall: oriented to person, place and time 10/21/2011 None Full Exam - ENT Integument inspection of skin Rash/Lesions: macule 10/21/2011 left upper lip-irritated Full Exam - ENT Cardiovascular auscultation of heart Overall: regular rate 10/21/2011 None Full Exam - ENT Cardiovascular auscultation of heart Overall: normal heart sounds 10/21/2011 None Full Exam - ENT Respiratory auscultation Overall: breath sounds clear bilaterally 10/21/2011 None Full Exam - ENT Face and Head palpation Left maxillary sinus: tender 10/21/2011 None Full Exam - ENT Face and Head palpation Right maxillary sinus: tender 10/21/2011 None Full Exam - ENT Face and Head palpation Left frontal sinus: tender 10/21/2011 None Full Exam - ENT Face and Head palpation Right frontal sinus: tender 10/21/2011 None Full Exam - ENT Ears/Nose/Throat otoscopic exam Right tympanic membrane: air-fluid level 10/21/2011 None Full Exam - ENT Ears/Nose/Throat otoscopic exam Left tympanic membrane: air -fluid level 10/21/2011 None Full Exam - ENT Ears/Nose/Throat oropharynx Overall: oral mucosa clear 10/21/2011 None Full Exam - ENT Ears/Nose/Throat oropharynx Posterior Pharynx: purulent post nasal drainage 10/21/2011 None Full Exam - ENT Constitutional general appearance Overall: well nourished 10/14/2011 None Full Exam - ENT Constitutional general appearance Overall: well developed 10/14/2011 None Full Exam - ENT Constitutional general appearance Overall: in no acute distress 10/14/2011 None Full Exam - ENT Ears/Nose/Throat otoscopic exam Left external auditory canal: a normal exam 10/14/2011 None Full Exam - ENT Ears/Nose/Throat otoscopic exam Right external auditory canal: a normal exam 10/14/2011 None Full Exam - ENT Ears/Nose/Throat otoscopic exam Left tympanic membrane: air -fluid level 10/14/2011 None Full Exam - ENT Ears/Nose/Throat otoscopic exam Right tympanic membrane: air-fluid level 10/14/2011 None Full Exam - ENT Ears/Nose/Throat oropharynx Overall: oral mucosa clear 10/14/2011 None Full Exam - ENT Respiratory inspection Overall: no retractions 10/14/2011 None Full Exam - ENT Respiratory inspection Overall: normal rate None Full Exam - ENT Respiratory auscultation Overall: breath sounds clear bilaterally 10/14/2011 None Full Exam - ENT Cardiovascular auscultation of heart Overall: regular rate 10/14/2011 None Full Exam - ENT Cardiovascular auscultation of heart Overall: normal heart sounds 10/14/2011 None Full Exam - ENT Cardiovascular examination of vasculature Edema: pitting 10/14/2011 None Full Exam - ENT Cardiovascular examination of vasculature Edema: severity 1+ - 4+: _ 10/14/2011 None Full Exam - ENT Abdomen abdominal exam Overall: no tenderness 10/14/2011 None Full Exam - ENT Abdomen abdominal exam Overall: normal bowel sounds 10/14/2011 None Full Exam - ENT Lymphatic palpation of lymph nodes Overall: anterior cervical chain benign 10/14/2011 None Full Exam - ENT Lymphatic palpation of lymph nodes Overall: posterior cervical chain benign 10/14/2011 None Full Exam - ENT Neurologic orientation Overall: oriented to person, place and time 10/14/2011 None Full Exam - General Eyes pupils and irises Overall: pupils equal, round, reactive to light and accomodation 09/02/2011 None Full Exam - General Ears/Nose/Throat otoscopic exam Overall: external auditory canals clear 09/02/2011 None Full Exam - General Ears/Nose/Throat otoscopic exam Overall: tympanic membranes clear 09/02/2011 None Full Exam - General Ears/Nose/Throat oral cavity/pharynx/larynx Overall: oral mucosa clear 09/02/2011 None Full Exam - General Respiratory auscultation Overall: breath sounds clear bilaterally 09/02/2011 None Full Exam - General Respiratory respiratory effort/rhythm Overall: no retractions 09/02/2011 None Full Exam - General Respiratory respiratory effort/rhythm Overall: normal rate 09/02/2011 None Full Exam - General Cardiovascular auscultation of heart Overall: regular rate 09/02/2011 None Full Exam - General Cardiovascular auscultation of heart Overall: normal heart sounds 09/02/2011 None Full Exam - General Abdomen abdominal exam Overall: normal bowel sounds 09/02/2011 None Full Exam - General Lymphatic neck nodes Overall: anterior cervical chain benign 09/02/2011 None Full Exam - General Lymphatic neck nodes Overall: posterior cervical chain benign 09/02/2011 None Full Exam - General Neurologic cranial nerves Overall: cranial nerves 2-12 grossly intact 09/02/2011 None Full Exam - General Constitutional general appearance Overall: well nourished 09/02/2011 None Full Exam - General Constitutional general appearance Overall: well developed 09/02/2011 None Full Exam - General Eyes conjunctiva/ eyelids Overall: conjunctiva clear 09/02/2011 None Full Exam - General Psychiatric orientation/consciousness Overall: oriented to person, place and time 09/02/2011 None Full Exam - General Abdomen abdominal exam Left upper quadrant: tender to palpation 09/02/2011 None Full Exam - General Abdomen abdominal exam Left upper quadrant: sharp pain 09/02/2011 None Full Exam - ENT Constitutional general appearance Overall: well nourished 08/10/2011 None Full Exam - ENT Constitutional general appearance Overall: well developed 08/10/2011 None Full Exam - ENT Constitutional general appearance Overall: in no acute distress 08/10/2011 None Full Exam - ENT Ears/Nose/Throat otoscopic exam Left external auditory canal: a normal exam 08/10/2011 None Full Exam - ENT Ears/Nose/Throat otoscopic exam Right external auditory canal: a normal exam 08/10/2011 None Full Exam - ENT Ears/Nose/Throat otoscopic exam Left tympanic membrane: air -fluid level 08/10/2011 None Full Exam - ENT Ears/Nose/Throat otoscopic exam Right tympanic membrane: air-fluid level 08/10/2011 None Full Exam - ENT Ears/Nose/Throat oropharynx Overall: oral mucosa clear 08/10/2011 None Full Exam - ENT Neurologic orientation Overall: oriented to person, place and time 08/10/2011 None Full Exam - ENT Lymphatic palpation of lymph nodes Overall: anterior cervical chain benign 08/10/2011 None Full Exam - ENT Lymphatic palpation of lymph nodes Overall: posterior cervical chain benign 08/10/2011 None Full Exam - ENT Abdomen abdominal exam Overall: no tenderness 08/10/2011 None Full Exam - ENT Abdomen abdominal exam Overall: normal bowel sounds 08/10/2011 None Full Exam - ENT Cardiovascular auscultation of heart Overall: regular rate 08/10/2011 None Full Exam - ENT Cardiovascular auscultation of heart Overall: normal heart sounds 08/10/2011 None Full Exam - ENT Respiratory inspection Overall: no retractions 08/10/2011 None Full Exam - ENT Respiratory inspection Overall: normal rate None Full Exam - ENT Respiratory auscultation Overall: breath sounds clear bilaterally 08/10/2011 None Full Exam - ENT Cardiovascular examination of vasculature Edema: pitting 08/10/2011 None Full Exam - ENT Cardiovascular examination of vasculature Edema: severity 1+ - 4+: 1+ 08/10/2011 None Full Exam - General 1994 Constitutional general appearance Overall: well developed 07/14/2011 None Full Exam - General 1994 Constitutional general appearance Overall: well nourished 07/14/2011 None Full Exam - General 1994 Eyes conjunctiva /eyelids Overall: conjunctiva clear 07/14/2011 None Full Exam - General 1994 Eyes conjunctiva /eyelids Overall: cornea clear 07/14/2011 None Full Exam - General 1994 Eyes conjunctiva /eyelids Overall: eyelids normal 07/14/2011 None Full Exam - General 1994 Ears/Nose/Throat external nose Overall: benign appearance 07/14/2011 None Full Exam - General 1994 Ears/Nose/Throat external nose Overall: no masses 07/14/2011 None Full Exam - General 1994 Neck inspection of neck Overall: normal size 07/14/2011 None Full Exam - General 1994 Neck inspection of neck Overall: normal appearance 07/14/2011 None Full Exam - General 1994 Neck inspection of neck Overall: no masses 07/14/2011 None Full Exam - General 1994 Respiratory respiratory effort/rhythm Overall: no retractions 07/14/2011 None Full Exam - General 1994 Respiratory respiratory effort/rhythm Overall: normal rate 07/14/2011 None Full Exam - General 1994 Cardiovascular extremities Overall: no clubbing 07/14/2011 None Full Exam - General 1994 Cardiovascular auscultation of heart Rhythm: regularly irregular rhythm 07/14/2011 None Full Exam - General 1994 Lymphatic neck nodes Overall: anterior cervical chain benign 07/14/2011 None Full Exam - General 1994 Lymphatic neck nodes Overall: posterior cervical chain benign 07/14/2011 None Full Exam - General 1994 Neurologic gait Overall: no ataxia, no unsteadiness 07/14/2011 None Full Exam - General 1994 Psychiatric orientation/consciousness Overall: oriented to person, place and time 07/14/2011 None Full Exam - General 1994 Psychiatric mood and affect Overall: normal mood and affect 07/14/2011 None Full Exam - General 1994 Psychiatric mood and affect Mood: happy 07/14/2011 None Full Exam - General 1994 Respiratory auscultation Overall: breath sounds clear bilaterally 07/14/2011 None Full Exam - General 1994 Ears/Nose/Throat otoscopic exam Overall: external auditory canals clear 07/14/2011 None Full Exam - General 1994 Ears/Nose/Throat otoscopic exam Tympanic membrane: a normal exam 07/14/2011 None Full Exam - General 1994 Ears/Nose/Throat otoscopic exam Tympanic membrane: air- fluid level 07/14/2011 None Full Exam - General 1994 Respiratory respiratory effort/rhythm Overall: no retractions 07/02/2011 None Full Exam - General 1994 Respiratory respiratory effort/rhythm Overall: normal rate 07/02/2011 None Full Exam - General 1994 Cardiovascular auscultation of heart Rhythm: regularly irregular rhythm 07/02/2011 None Full Exam - General 1994 Lymphatic neck nodes Overall: anterior cervical chain benign 07/02/2011 None Full Exam - General 1994 Lymphatic neck nodes Overall: posterior cervical chain benign 07/02/2011 None Full Exam - General 1994 Neurologic gait Overall: no ataxia, no unsteadiness 07/02/2011 None Full Exam - General 1994 Psychiatric orientation/consciousness Overall: oriented to person, place and time 07/02/2011 None Full Exam - General 1994 Ears/Nose/Throat external ear Overall: no masses 07/02/2011 None Full Exam - General 1994 Ears/Nose/Throat external ear Overall: normal mastoids 07/02/2011 None Full Exam - General 1994 Ears/Nose/Throat external nose Overall: benign appearance 07/02/2011 None Full Exam - General 1995 Ears/Nose/Throat external nose Overall: no masses 07/02/2011 None Full Exam - General 1994 Psychiatric mood and affect Overall: normal mood and affect 07/02/2011 None Full Exam - General 1994 Psychiatric mood and affect Mood: happy 07/02/2011 None Full Exam - General 1995 Respiratory auscultation Lower lung field: diminished 07/02/2011 None Full Exam - General 1994 Cardiovascular extremities Overall: no clubbing 07/02/2011 None Full Exam - General 1995 Ears/Nose/Throat otoscopic exam External auditory canal: a normal exam 07/02/2011 None Full Exam - General 1995 Ears/Nose/Throat otoscopic exam External auditory canal: minimal cerumen 07/02/2011 None Full Exam - General 1994 Neck inspection of neck Overall: normal size 07/02/2011 None Full Exam - General 1994 Neck inspection of neck Overall: normal appearance 07/02/2011 None Full Exam - General 1994 Neck inspection of neck Overall: no masses 07/02/2011 None Full Exam - General 1994 Respiratory auscultation Upper lung field: a normal exam 07/02/2011 None Full Exam - General 1994 Constitutional general appearance Overall: well developed 07/02/2011 None Full Exam - General 1994 Constitutional general appearance Overall: well nourished 07/02/2011 None Full Exam - General 1994 Eyes conjunctiva /eyelids Overall: conjunctiva clear 07/02/2011 None Full Exam - General 1994 Eyes conjunctiva /eyelids Overall: cornea clear 07/02/2011 None Full Exam - General 1994 Eyes conjunctiva /eyelids Overall: eyelids normal 07/02/2011 None Full Exam - General 1994 Ears/Nose/Throat external ear Overall: normal appearance 07/02/2011 None Full Exam - General Constitutional general appearance Overall: well nourished 06/25/2011 None Full Exam - General Constitutional general appearance Overall: well developed 06/25/2011 None Full Exam - General Eyes conjunctiva/ eyelids Overall: conjunctiva clear 06/25/2011 None Full Exam - General Eyes pupils and irises Overall: pupils equal, round, reactive to light and accomodation 06/25/2011 None Full Exam - General Ears/Nose/Throat otoscopic exam Overall: external auditory canals clear 06/25/2011 None Full Exam - General Ears/Nose/Throat otoscopic exam Left tympanic membrane: air -fluid level 06/25/2011 None Full Exam - General Ears/Nose/Throat otoscopic exam Right tympanic membrane: air-fluid level. 06/25/2011 None Full Exam - General Ears/Nose/Throat oral cavity/pharynx/larynx Posterior Pharynx: clear post nasal drainage 06/25/2011 None Full Exam - General Ears/Nose/Throat oral cavity/pharynx/larynx Oropharynx: erythema 06/25/2011 None Full Exam - General Respiratory auscultation Overall: breath sounds clear bilaterally 06/25/2011 None Full Exam - General Respiratory respiratory effort/rhythm Overall: no retractions 06/25/2011 None Full Exam - General Respiratory respiratory effort/rhythm Overall: normal rate 06/25/2011 None Full Exam - General Cardiovascular auscultation of heart Overall: regular rate 06/25/2011 None Full Exam - General Cardiovascular auscultation of heart Overall: normal heart sounds 06/25/2011 None Full Exam - General Lymphatic neck nodes Overall: shotty lymphadenopathy 06/25/2011 None Full Exam - General Psychiatric orientation/consciousness Overall: oriented to person, place and time 06/25/2011 None Full Exam - General Psychiatric orientation/consciousness Level of consciousness: alert 06/25/2011 None Full Exam - General Psychiatric mood and affect Overall: normal mood and affect 06/25/2011 None Full Exam - General Psychiatric mood and affect Affect: a normal exam 06/25/2011 None Full Exam - General Neurologic gait Overall: no ataxia, no unsteadiness 06/25/2011 None Full Exam - General Integument inspection of skin Overall: no rash, lesions 06/25/2011 but has bruising extensively over forearms and hands from IV's and lab draws Full Exam - General Abdomen abdominal exam Overall: no tenderness 06/25/2011 None Full Exam - General Abdomen abdominal exam Overall: normal bowel sounds 06/25/2011 None Full Exam - General Abdomen abdominal exam Contour: rounded 06/25/2011 None Full Exam - General Musculoskeletal head and neck Overall: head atraumatic 06/25/2011 None Full Exam - General Musculoskeletal head and neck Overall: cervical spine benign 06/25/2011 None Full Exam - General Cardiovascular extremities Overall: no clubbing 06/25/2011 None Full Exam - General 1994 Constitutional general appearance Overall: well developed 06/16/2011 None Full Exam - General 1994 Constitutional general appearance Overall: well nourished 06/16/2011 None Full Exam - General 1994 Eyes conjunctiva /eyelids Overall: conjunctiva clear 06/16/2011 None Full Exam - General 1994 Eyes conjunctiva /eyelids Overall: cornea clear 06/16/2011 None Full Exam - General 1994 Eyes conjunctiva /eyelids Overall: eyelids normal 06/16/2011 None Full Exam - General 1994 Ears/Nose/Throat external ear Overall: normal appearance 06/16/2011 None Full Exam - General 1994 Ears/Nose/Throat external ear Overall: no masses 06/16/2011 None Full Exam - General 1994 Ears/Nose/Throat external ear Overall: normal mastoids 06/16/2011 None Full Exam - General 1994 Ears/Nose/Throat external nose Overall: benign appearance 06/16/2011 None Full Exam - General 1994 Ears/Nose/Throat external nose Overall: no masses 06/16/2011 None Full Exam - General 1994 Ears/Nose/Throat otoscopic exam External auditory canal: a normal exam 06/16/2011 None Full Exam - General 1994 Ears/Nose/Throat otoscopic exam External auditory canal: minimal cerumen 06/16/2011 None Full Exam - General 1994 Neck inspection of neck Overall: normal size 06/16/2011 None Full Exam - General 1994 Neck inspection of neck Overall: normal appearance 06/16/2011 None Full Exam - General 1994 Neck inspection of neck Overall: no masses 06/16/2011 None Full Exam - General 1994 Respiratory auscultation Upper lung field: a normal exam 06/16/2011 None Full Exam - General 1994 Respiratory auscultation Lower lung field: crackles 06/16/2011 in bases after breathing treatment Full Exam - General 1994 Respiratory respiratory effort/rhythm Overall: no retractions 06/16/2011 None Full Exam - General 1994 Respiratory respiratory effort/rhythm Overall: normal rate 06/16/2011 None Full Exam - General 1994 Cardiovascular auscultation of heart Rhythm: regularly irregular rhythm 06/16/2011 None Full Exam - General 1994 Abdomen abdominal exam Overall: no tenderness 06/16/2011 None Full Exam - General 1994 Abdomen abdominal exam Overall: normal bowel sounds 06/16/2011 None Full Exam - General 1994 Abdomen abdominal exam Contour: rounded 06/16/2011 None Full Exam - General 1995 Lymphatic neck nodes Overall: anterior cervical chain benign 06/16/2011 None Full Exam - General 1994 Lymphatic neck nodes Overall: posterior cervical chain benign 06/16/2011 None Full Exam - General 1994 Neurologic gait Overall: no ataxia, no unsteadiness 06/16/2011 None Full Exam - General 1994 Psychiatric orientation/consciousness Overall: oriented to person, place and time 06/16/2011 None Full Exam - General 1994 Psychiatric mood and affect Overall: normal mood and affect 06/16/2011 None Full Exam - General 1994 Psychiatric mood and affect Mood: happy 06/16/2011 None Full Exam - General 1995 Constitutional general appearance Evidence of Distress: mild distress 06/16/2011 None Full Exam - General 1994 Constitutional general appearance Overall: well developed 06/15/2011 None Full Exam - General 1994 Constitutional general appearance Overall: in no acute distress 06/15/2011 None Full Exam - General 1994 Constitutional general appearance Overall: well nourished 06/15/2011 None Full Exam - General 1994 Eyes conjunctiva /eyelids Overall: conjunctiva clear 06/15/2011 None Full Exam - General 1994 Abdomen abdominal exam Overall: normal bowel sounds 06/15/2011 None Full Exam - General 1994 Abdomen abdominal exam Contour: rounded 06/15/2011 None Full Exam - General 1994 Lymphatic neck nodes Overall: anterior cervical chain benign 06/15/2011 None Full Exam - General 1994 Lymphatic neck nodes Overall: posterior cervical chain benign 06/15/2011 None Full Exam - General 1994 Psychiatric orientation/consciousness Overall: oriented to person, place and time 06/15/2011 None Full Exam - General 1994 Psychiatric mood and affect Overall: normal mood and affect 06/15/2011 None Full Exam - General 1994 Psychiatric mood and affect Mood: happy 06/15/2011 None Full Exam - General 1994 Ears/Nose/Throat otoscopic exam Tympanic membrane: air- fluid level 06/15/2011 None Full Exam - General 1994 Respiratory auscultation Lower lung field: diminished 06/15/2011 None Full Exam - General 1994 Eyes conjunctiva /eyelids Overall: cornea clear 06/15/2011 None Full Exam - General 1994 Eyes conjunctiva /eyelids Overall: eyelids normal 06/15/2011 None Full Exam - General 1994 Ears/Nose/Throat external ear Overall: normal appearance 06/15/2011 None Full Exam - General 1994 Ears/Nose/Throat external ear Overall: no masses 06/15/2011 None Full Exam - General 1994 Ears/Nose/Throat external ear Overall: normal mastoids 06/15/2011 None Full Exam - General 1994 Ears/Nose/Throat external nose Overall: benign appearance 06/15/2011 None Full Exam - General 1994 Ears/Nose/Throat external nose Overall: no masses 06/15/2011 None Full Exam - General 1995 Ears/Nose/Throat otoscopic exam External auditory canal: a normal exam 06/15/2011 None Full Exam - General 1995 Ears/Nose/Throat otoscopic exam External auditory canal: minimal cerumen 06/15/2011 None Full Exam - General 1994 Respiratory auscultation Upper lung field: a normal exam 06/15/2011 None Full Exam - General 1994 Respiratory respiratory effort/rhythm Overall: no retractions 06/15/2011 None Full Exam - General 1994 Respiratory respiratory effort/rhythm Overall: normal rate 06/15/2011 None Full Exam - General 1994 Cardiovascular auscultation of heart Rhythm: regularly irregular rhythm 06/15/2011 None Full Exam - General 1994 Abdomen abdominal exam Overall: no tenderness 06/15/2011 None Full Exam - General 1994 Constitutional general appearance Overall: well nourished 06/04/2011 None Full Exam - General 1994 Constitutional general appearance Overall: well developed 06/04/2011 None Full Exam - General 1994 Constitutional general appearance Overall: in no acute distress 06/04/2011 None Full Exam - General 1994 Eyes conjunctiva /eyelids Overall: conjunctiva clear 06/04/2011 None Full Exam - General 1994 Eyes conjunctiva /eyelids Overall: eyelids normal 06/04/2011 None Full Exam - General 1994 Eyes conjunctiva /eyelids Overall: cornea clear 06/04/2011 None Full Exam - General 1994 Ears/Nose/Throat external ear Overall: no masses 06/04/2011 None Full Exam - General 1994 Ears/Nose/Throat external ear Overall: normal appearance 06/04/2011 None Full Exam - General 1994 Ears/Nose/Throat external ear Overall: normal mastoids 06/04/2011 None Full Exam - General 1994 Ears/Nose/Throat external nose Overall: benign appearance 06/04/2011 None Full Exam - General 1994 Ears/Nose/Throat external nose Overall: no masses 06/04/2011 None Full Exam - General 1994 Ears/Nose/Throat otoscopic exam External auditory canal: minimal cerumen 06/04/2011 None Full Exam - General 1995 Ears/Nose/Throat otoscopic exam External auditory canal: a normal exam 06/04/2011 None Full Exam - General 1994 Lymphatic neck nodes Overall: anterior cervical chain benign 06/04/2011 None Full Exam - General 1994 Lymphatic neck nodes Overall: posterior cervical chain benign 06/04/2011 None Full Exam - General 1994 Neurologic gait Overall: no ataxia, no unsteadiness 06/04/2011 None Full Exam - General 1994 Neck inspection of neck Overall: normal size 06/04/2011 None Full Exam - General 1994 Neck inspection of neck Overall: normal appearance 06/04/2011 None Full Exam - General 1994 Neck inspection of neck Overall: no masses 06/04/2011 None Full Exam - General 1994 Psychiatric mood and affect Mood: happy 06/04/2011 None Full Exam - General 1994 Psychiatric mood and affect Overall: normal mood and affect 06/04/2011 None Full Exam - General 1994 Psychiatric orientation/consciousness Overall: oriented to person, place and time 06/04/2011 None Full Exam - General 1994 Respiratory auscultation Upper lung field: a normal exam 06/04/2011 None Full Exam - General 1994 Respiratory auscultation Lower lung field: crackles 06/04/2011 None Full Exam - General 1994 Respiratory respiratory effort/rhythm Overall: no retractions 06/04/2011 None Full Exam - General 1994 Respiratory respiratory effort/rhythm Overall: normal rate 06/04/2011 None Full Exam - General 1994 Cardiovascular auscultation of heart Rhythm: regularly irregular rhythm 06/04/2011 None Full Exam - General 1994 Abdomen abdominal exam Overall: no tenderness 06/04/2011 None Full Exam - General 1994 Abdomen abdominal exam Overall: normal bowel sounds 06/04/2011 None Full Exam - General 1994 Abdomen abdominal exam Contour: rounded 06/04/2011 None Full Exam - General Abdomen abdominal exam Overall: no tenderness 05/05/2011 None Full Exam - General Abdomen abdominal exam Overall: normal bowel sounds 05/05/2011 None Full Exam - General Cardiovascular auscultation of heart Overall: regular rate 05/05/2011 None Full Exam - General Cardiovascular auscultation of heart Overall: normal heart sounds 05/05/2011 None Full Exam - General Constitutional general appearance Overall: well nourished 05/05/2011 None Full Exam - General Constitutional general appearance Overall: well developed 05/05/2011 None Full Exam - General Ears/Nose/Throat otoscopic exam Overall: external auditory canals clear 05/05/2011 None Full Exam - General Ears/Nose/Throat otoscopic exam Overall: tympanic membranes clear 05/05/2011 None Full Exam - General Ears/Nose/Throat oral cavity/pharynx/larynx Overall: oral mucosa clear 05/05/2011 None Full Exam - General Eyes conjunctiva/ eyelids Overall: conjunctiva clear 05/05/2011 None Full Exam - General Eyes pupils and irises Overall: pupils equal, round, reactive to light and accomodation 05/05/2011 None Full Exam - General Neurologic cranial nerves Overall: cranial nerves 2-12 grossly intact 05/05/2011 None Full Exam - General Psychiatric orientation/consciousness Overall: oriented to person, place and time 05/05/2011 None Full Exam - General Respiratory auscultation Overall: breath sounds clear bilaterally 05/05/2011 None Full Exam - General Respiratory respiratory effort/rhythm Overall: no retractions 05/05/2011 None Full Exam - General Respiratory respiratory effort/rhythm Overall: normal rate 05/05/2011 None Full Exam - General Musculoskeletal right lower extremity Palpation - right knee: small effusion 05/05/2011 None Full Exam - General Constitutional general appearance Overall: well nourished 04/07/2011 None Full Exam - General Constitutional general appearance Overall: well developed 04/07/2011 None Full Exam - General Eyes conjunctiva/ eyelids Overall: conjunctiva clear 04/07/2011 None Full Exam - General Eyes pupils and irises Overall: pupils equal, round, reactive to light and accomodation 04/07/2011 None Full Exam - General Ears/Nose/Throat otoscopic exam Overall: external auditory canals clear 04/07/2011 None Full Exam - General Ears/Nose/Throat otoscopic exam Overall: tympanic membranes clear 04/07/2011 None Full Exam - General Ears/Nose/Throat oral cavity/pharynx/larynx Overall: oral mucosa clear 04/07/2011 None Full Exam - General Respiratory auscultation Overall: breath sounds clear bilaterally 04/07/2011 None Full Exam - General Respiratory respiratory effort/rhythm Overall: no retractions 04/07/2011 None Full Exam - General Respiratory respiratory effort/rhythm Overall: normal rate 04/07/2011 None Full Exam - General Cardiovascular auscultation of heart Overall: regular rate 04/07/2011 None Full Exam - General Cardiovascular auscultation of heart Overall: normal heart sounds 04/07/2011 None Full Exam - General Abdomen abdominal exam Overall: no tenderness 04/07/2011 None Full Exam - General Abdomen abdominal exam Overall: normal bowel sounds 04/07/2011 None Full Exam - General Lymphatic neck nodes Overall: anterior cervical chain benign 04/07/2011 None Full Exam - General Lymphatic neck nodes Overall: posterior cervical chain benign 04/07/2011 None Full Exam - General Neurologic cranial nerves Overall: cranial nerves 2-12 grossly intact 04/07/2011 None Full Exam - General Psychiatric orientation/consciousness Overall: oriented to person, place and time 04/07/2011 None Full Exam - General Eyes pupils and irises Overall: pupils equal, round, reactive to light and accomodation 03/17/2011 None Full Exam - General Ears/Nose/Throat otoscopic exam Overall: external auditory canals clear 03/17/2011 None Full Exam - General Ears/Nose/Throat otoscopic exam Left tympanic membrane: air -fluid level 03/17/2011 None Full Exam - General Ears/Nose/Throat otoscopic exam Right tympanic membrane: air-fluid level. 03/17/2011 Maxillary sinus tenderness bilaterally. Full Exam - General Ears/Nose/Throat oral cavity/pharynx/larynx Oropharynx: erythema 03/17/2011 None Full Exam - General Respiratory auscultation Overall: breath sounds clear bilaterally 03/17/2011 None Full Exam - General Respiratory respiratory effort/rhythm Overall: no retractions 03/17/2011 None Full Exam - General Respiratory respiratory effort/rhythm Overall: normal rate 03/17/2011 None Full Exam - General Cardiovascular auscultation of heart Overall: regular rate 03/17/2011 None Full Exam - General Cardiovascular auscultation of heart Overall: normal heart sounds 03/17/2011 None Full Exam - General Lymphatic neck nodes Overall: shotty lymphadenopathy 03/17/2011 None Full Exam - General Constitutional general appearance Nourishment: obese 03/17/2011 None Full Exam - General Constitutional general appearance Overall: well developed 03/17/2011 None Full Exam - General Constitutional general appearance Overall: in no acute distress 03/17/2011 None Full Exam - General Eyes conjunctiva/ eyelids Overall: conjunctiva clear 03/17/2011 None Full Exam - General Constitutional general appearance Overall: well developed 01/21/2011 None Full Exam - General Eyes conjunctiva/ eyelids Overall: conjunctiva clear 01/21/2011 None Full Exam - General Eyes pupils and irises Overall: pupils equal, round, reactive to light and accomodation 01/21/2011 None Full Exam - General Ears/Nose/Throat otoscopic exam Overall: external auditory canals clear 01/21/2011 None Full Exam - General Ears/Nose/Throat otoscopic exam Overall: tympanic membranes clear 01/21/2011 None Full Exam - General Ears/Nose/Throat oral cavity/pharynx/larynx Overall: oral mucosa clear 01/21/2011 None Full Exam - General Respiratory auscultation Overall: breath sounds clear bilaterally 01/21/2011 None Full Exam - General Respiratory respiratory effort/rhythm Overall: no retractions 01/21/2011 None Full Exam - General Respiratory respiratory effort/rhythm Overall: normal rate 01/21/2011 None Full Exam - General Cardiovascular auscultation of heart Overall: regular rate 01/21/2011 None Full Exam - General Cardiovascular auscultation of heart Overall: normal heart sounds 01/21/2011 None Full Exam - General Abdomen abdominal exam Overall: no tenderness 01/21/2011 None Full Exam - General Abdomen abdominal exam Overall: normal bowel sounds 01/21/2011 None Full Exam - General Lymphatic neck nodes Overall: anterior cervical chain benign 01/21/2011 None Full Exam - General Lymphatic neck nodes Overall: posterior cervical chain benign 01/21/2011 None Full Exam - General Ears/Nose/Throat lips /teeth/gingiva Lips: lesion 01/21/2011 noted to upper lip-rough, raised area. Cryotherapy of lesion performed in the office today. Patient tolerated well. Full Exam - General Neurologic cranial nerves Overall: cranial nerves 2-12 grossly intact 01/21/2011 None Full Exam - General Psychiatric orientation/consciousness Overall: oriented to person, place and time 01/21/2011 None Full Exam - General Constitutional general appearance Overall: well nourished 01/21/2011 None Full Exam - General Cardiovascular auscultation of heart Overall: normal heart sounds 11/24/2010 None Full Exam - General Lymphatic neck nodes Overall: shotty lymphadenopathy 11/24/2010 None Full Exam - General Ears/Nose/Throat oral cavity/pharynx/larynx Posterior Pharynx: clear post nasal drainage 11/24/2010 None Full Exam - General Constitutional general appearance Overall: well nourished 11/24/2010 None Full Exam - General Constitutional general appearance Overall: well developed 11/24/2010 None Full Exam - General Constitutional general appearance Overall: in no acute distress 11/24/2010 None Full Exam - General Eyes conjunctiva/ eyelids Overall: conjunctiva clear 11/24/2010 None Full Exam - General Eyes pupils and irises Overall: pupils equal, round, reactive to light and accomodation 11/24/2010 None Full Exam - General Ears/Nose/Throat otoscopic exam Overall: external auditory canals clear 11/24/2010 None Full Exam - General Ears/Nose/Throat otoscopic exam Left tympanic membrane: air -fluid level 11/24/2010 None Full Exam - General Ears/Nose/Throat otoscopic exam Right tympanic membrane: air-fluid level. 11/24/2010 None Full Exam - General Ears/Nose/Throat oral cavity/pharynx/larynx Oropharynx: erythema 11/24/2010 None Full Exam - General Respiratory auscultation Overall: breath sounds clear bilaterally 11/24/2010 None Full Exam - General Respiratory respiratory effort/rhythm Overall: no retractions 11/24/2010 None Full Exam - General Respiratory respiratory effort/rhythm Overall: normal rate 11/24/2010 None Full Exam - General Cardiovascular auscultation of heart Overall: regular rate 11/24/2010 None Full Exam - General Constitutional general appearance Overall: well developed 11/20/2010 None Full Exam - General Constitutional general appearance Overall: in no acute distress 11/20/2010 None Full Exam - General Eyes conjunctiva/ eyelids Overall: conjunctiva clear 11/20/2010 None Full Exam - General Eyes pupils and irises Overall: pupils equal, round, reactive to light and accomodation 11/20/2010 None Full Exam - General Ears/Nose/Throat otoscopic exam Overall: external auditory canals clear 11/20/2010 None Full Exam - General Ears/Nose/Throat otoscopic exam Left tympanic membrane: air -fluid level 11/20/2010 None Full Exam - General Ears/Nose/Throat otoscopic exam Right tympanic membrane: air-fluid level. 11/20/2010 Maxillary sinus tenderness bilaterally. Full Exam - General Ears/Nose/Throat oral cavity/pharynx/larynx Oropharynx: erythema 11/20/2010 None Full Exam - General Respiratory auscultation Overall: breath sounds clear bilaterally 11/20/2010 None Full Exam - General Respiratory respiratory effort/rhythm Overall: no retractions 11/20/2010 None Full Exam - General Respiratory respiratory effort/rhythm Overall: normal rate 11/20/2010 None Full Exam - General Cardiovascular auscultation of heart Overall: normal heart sounds 11/20/2010 None Full Exam - General Cardiovascular auscultation of heart Overall: regular rate 11/20/2010 None Full Exam - General Lymphatic neck nodes Overall: shotty lymphadenopathy 11/20/2010 None Full Exam - General Constitutional general appearance Overall: well nourished 11/20/2010 None Full Exam - Cardiology Cardiovascular auscultation of heart Overall: normal heart sounds 11/06/2010 None Full Exam - Cardiology Cardiovascular auscultation of heart Overall: regular rate 11/06/2010 None Full Exam - Cardiology Cardiovascular extremities Overall: no clubbing 11/06/2010 None Full Exam - Cardiology Constitutional general appearance Nourishment: well nourished 11/06/2010 None Full Exam - Cardiology Constitutional general appearance Overall: in no acute distress 11/06/2010 None Full Exam - Cardiology Constitutional general appearance Overall: well developed 11/06/2010 None Full Exam - Cardiology Constitutional general appearance Overall: well nourished 11/06/2010 None Full Exam - Cardiology Ears/Nose/Throat oral mucosa Oral mucosa: moist. 11/06/2010 Sinuses maxillary and frontal sinus tenderness. Full Exam - Cardiology Ears/Nose/Throat teeth/gingiva/palate Overall: normal dentition 11/06/2010 None Full Exam - Cardiology Lymphatic neck nodes Overall: shotty lymphadenopathy 11/06/2010 None Full Exam - Cardiology Musculoskeletal gait and station Overall: normal gait 11/06/2010 None Full Exam - Cardiology Neurologic cranial nerves Overall: cranial nerves 1- 12 intact 11/06/2010 None Full Exam - Cardiology Psychiatric mood and affect Overall: normal mood and affect 11/06/2010 None Full Exam - Cardiology Psychiatric orientation/consciousness Overall: oriented to person, place and time 11/06/2010 None Full Exam - Cardiology Respiratory auscultation Overall: breath sounds clear bilaterally 11/06/2010 None Full Exam - Cardiology Respiratory respiratory effort/rhythm Overall: no retractions 11/06/2010 None Procedures Procedure Codes Date ADMIN PNEUMOCOCCAL VACCINE SNOMED CT: 35212033 CPT-4: G0009 03/15/2017 Pneumococcal Polysaccharide Vaccine, 23-Valent, Ad CPT-4: 93135 03/15/2017 URINALYSIS NONAUTO W/O SCOPE CPT-4: 27920 12/31/2016 ADMIN INFLUENZA VIRUS VAC CPT-4: G0008 11/03/2016 FLU VACC PRSV FREE INC ANTIG CPT-4: 38481 11/03/2016 URINALYSIS NONAUTO W/O SCOPE CPT-4: 03528 10/29/2016 PPPS, INITIAL VISIT CPT-4: G0438 12/09/2015 ADMIN INFLUENZA VIRUS VAC CPT-4: G0008 11/13/2015 FLU VACC PRSV FREE INC ANTIG Formatting Model/CDA Sections, Assigned to/Isabel Arrington CPT-4: [id number] 11/13/2015 URINALYSIS NONAUTO W/O SCOPE CPT-4: 98492 09/24/2015 THER/PROPH/DIAG INJ SC/IM CPT-4: 93304 09/13/2015 VITAMIN B12 INJECTION CPT-4: J3420 09/13/2015 URINALYSIS NONAUTO W/O SCOPE CPT-4: 56516 08/05/2015 URINALYSIS NONAUTO W/O SCOPE CPT-4: 60752 06/12/2015 TRIAMCINOLONE ACET INJ NOS CPT-4: J3301 03/27/2015 THER/PROPH/DIAG INJ SC/IM CPT-4: 02154 12/24/2014 PNEUMOCOCCAL VACC [address]: 99097612 CPT-4: 00005 12/24/2014 TRIAMCINOLONE ACET INJ NOS CPT-4: J3301 12/11/2014 INITIAL PREVENTIVE EXAM CPT-4: G0402 12/04/2014 SCREENINGMAMMOGRAPHYDIGITAL CPT-4: G0202 12/04/2014 ADMIN INFLUENZA VIRUS VAC CPT-4: G0008 11/22/2014 FLU VACC 4 SUZETTE 3 YRS PLUS IM SNOMED CT: 35484220 CPT-4: 38880 11/22/2014 URINALYSIS NONAUTO W/O SCOPE CPT-4: 70911 11/08/2014 URINALYSIS NONAUTO W/O SCOPE CPT-4: 97838 07/30/2014 TRIAMCINOLONE ACET INJ NOS CPT-4: J3301 04/14/2013 ROUTINE VENIPUNCTURE CPT-4: 15366 04/12/2013 INJ TRIGGER POINT 1/2 MUSCL CPT-4: 73431 01/05/2013 TRIAMCINOLONE ACET INJ NOS CPT-4: J3301 04/11/2012 THER/PROPH/DIAG INJ SC/IM CPT-4: 06578 03/09/2012 THER/PROPH/DIAG INJ SC/IM CPT-4: 87952 03/02/2012 ROUTINE VENIPUNCTURE CPT-4: 30566 03/02/2012 THER/PROPH/DIAG INJ SC/IM CPT-4: 67601 02/11/2012 THER/PROPH/DIAG INJ SC/IM CPT-4: 88969 01/27/2012 THER/PROPH/DIAG INJ SC/IM CPT-4: 61879 01/20/2012 THER/PROPH/DIAG INJ SC/IM CPT-4: 85150 01/13/2012 THER/PROPH/DIAG INJ SC/IM CPT-4: 05566 01/06/2012 THER/PROPH/DIAG INJ SC/IM CPT-4: 47980 12/16/2011 THER/PROPH/DIAG INJ SC/IM CPT-4: 78017 12/09/2011 THER/PROPH/DIAG INJ SC/IM CPT-4: 13221 12/01/2011 THER/PROPH/DIAG INJ SC/IM CPT-4: 84908 11/25/2011 THER/PROPH/DIAG INJ SC/IM CPT-4: 40338 11/18/2011 IMMUNIZATION ADMIN CPT -4: 17250 11/11/2011 Influenza Virus Vaccine, Split Virus, >3 Yrs, IM CPT-4: 64145 11/11/2011 ADMIN PNEUMOCOCCAL VACCINE SNOMED CT: 66674159 CPT-4: G0009 11/11/2011 THER/PROPH/DIAG INJ SC/IM CPT-4: 84483 11/03/2011 THER/PROPH/DIAG INJ SC/IM CPT-4: 34795 10/21/2011 DESTRUCT PREMALG LESION CPT-4: 68069 10/21/2011 THER/PROPH/DIAG INJ SC/IM CPT-4: 80620 10/14/2011 THER/PROPH/DIAG INJ SC/IM CPT-4: 66783 10/07/2011 THER/PROPH/DIAG INJ SC/IM CPT-4: 90808 09/22/2011 THER/PROPH/DIAG INJ SC/IM CPT-4: 75021 09/16/2011 URINALYSIS NONAUTO W/O SCOPE CPT-4: 08797 09/02/2011 THER/PROPH/DIAG INJ SC/IM CPT-4: 17289 09/02/2011 THER/PROPH/DIAG INJ SC/IM CPT-4: 68043 08/26/2011 TRIAMCINOLONE ACET INJ NOS CPT-4: J3301 08/11/2011 THER/PROPH/DIAG INJ SC/IM CPT-4: 00446 08/11/2011 ROUTINE VENIPUNCTURE CPT-4: 29007 07/03/2011 TRIAMCINOLONE ACET INJ NOS CPT-4: J3301 06/15/2011 THER/PROPH/DIAG INJ SC/IM CPT-4: 27777 06/15/2011 TRIAMCINOLONE ACET INJ NOS CPT-4: J3301 03/17/2011 THER/PROPH/DIAG INJ SC/IM CPT-4: 73627 03/17/2011 ROUTINE VENIPUNCTURE CPT-4: 81685 01/21/2011 DESTRUCT PREMALG LESION CPT-4: 49426 01/21/2011 ROUTINE VENIPUNCTURE CPT-4: 11810 11/25/2010 TRIAMCINOLONE ACET INJ NOS CPT-4: J3301 11/20/2010 THER/PROPH/DIAG INJ SC/IM CPT-4: 62087 11/20/2010 Vital Signs Date Vital 01/11/2017 Blood Pressure 1: 148/86 Code : 8480-6 Blood Pressure 2: 132/84 Code: 8480-6 Heart Rate 1: 98 bpm SpO2: 98% 07/20/2016 Height: 5'3" 12/09/2015 Blood Pressure 1: 142/84 Code : 8480-6 BMI: 46.1 Code : 93714-4 Heart Rate 1 : 78 bpm Height: 5'3" SpO2: 98% Waist Measure (cm): 127 cm Weight: 260 lbs 09/09/2015 Blood Pressure 1: 132/80 Code : 8480-6 Heart Rate 1: 7797 bpm Height: SpO2: 97% Weight: 06/11/2015 Blood Pressure 1: 138/88 Code : 8480-6 Heart Rate 1: 74 bpm SpO2: 97% Weight: 246 lbs 3 oz 12/11/2014 Blood Pressure 1: 140/88 Code : 8480-6 Heart Rate 1: 68 bpm Height: SpO2: 98% Temperature: 36.1 (C) / 97.0 (F) Weight: 12/04/2014 Blood Pressure 1: 128/76 Code : 8480-6 BMI: 44.1 Code : 62174-4 Heart Rate 1 : 55 bpm Height: 5'3" SpO2: 97% Waist Measure (cm): 117 cm Weight: 249 lbs 10/23/2013 Blood Pressure 1: 11462 Code : 8480-6 Heart Rate 1: 62 bpm Height: SpO2: 95% Weight: 04/14/2013 Blood Pressure 1: 116/64 Code : 8480-6 Heart Rate 1: 52 bpm Temperature: 36.1 (C) / 97.0 (F) Weight: 01/05/2013 Blood Pressure 1: 152/62 Code : 8480-6 Heart Rate 1: 60 bpm 04/11/2012 Blood Pressure 1: 12264 Code : 8480-6 Heart Rate 1: 60 bpm Temperature: 36.4 (C) / 97.6 (F) Weight: 236 lbs 03/07/2012 Blood Pressure 1: 11462 Code : 8480-6 BMI: 43.2 Code : 84446-6 Heart Rate 1 : 56 bpm Height: 5'3" Respiratory Rate: 16 bpm Weight: 244 lbs 01/13/2012 Blood Pressure 1: 104/66 Code : 8480-6 BMI: 45.3 Code : 71696-6 Heart Rate 1 : 60 bpm Height: 5'3" Weight: 256 lbs 01/06/2012 Weight: 263 lbs 12/29/2011 Blood Pressure 1: 122/80 Code : 8480-6 BMI: 48.4 Code : 21944-8 Heart Rate 1 : 68 bpm Height: 5'3" Weight: 273 lbs 12/21/2011 Blood Pressure 1: 192/90 Code : 8480-6 Heart Rate 1: 55 bpm SpO2: 98% Weight: 273 lbs 11/25/2011 Blood Pressure 1: 132/80 Code : 8480-6 Heart Rate 1: 78 bpm Weight: 271 lbs 11/11/2011 Blood Pressure 1: 124/74 Code : 8480-6 BMI: 47.5 Code : 31818-6 Heart Rate 1 : 60 bpm Height: 5'3" Respiratory Rate: 16 bpm Weight: 268 lbs 10/21/2011 Blood Pressure 1: 130/84 Code : 8480-6 Heart Rate 1: 72 bpm Weight: 266 lbs 10/14/2011 Blood Pressure 1: 130/82 Code : 8480-6 BMI: 46.8 Code : 91440-0 Heart Rate 1 : 52 bpm Height: 5'3" Weight: 264 lbs 09/02/2011 Blood Pressure 1: 114/62 Code : 8480-6 Heart Rate 1: 64 bpm Respiratory Rate : 16 bpm 08/11/2011 Heart Rate 1: 66 bpm SpO2: 97% 08/10/2011 Blood Pressure 1: 126/76 Code : 8480-6 Heart Rate 1: 68 bpm Respiratory Rate : 16 bpm Weight: 265 lbs 07/14/2011 Blood Pressure 1: 114/66 Code : 8480-6 Heart Rate 1: 61 bpm Respiratory Rate : 16 bpm SpO2: 96% Temperature: 36.7 (C) / 98.1 (F) Weight: 262 lbs 2 oz 07/02/2011 Blood Pressure 1: 134/68 Code : 8480-6 BMI: 46.8 Code : 84276-2 Heart Rate 1 : 60 bpm Height: 5'3" Respiratory Rate: 20 bpm Weight: 264 lbs 06/25/2011 Blood Pressure 1: 100/60 Code : 8480-6 Heart Rate 1: 68 bpm SpO2: 98% Weight: 266 lbs 06/16/2011 Blood Pressure 1: 112/70 Code : 8480-6 Heart Rate 1: 71 bpm SpO2: 95% Weight: 06/15/2011 Blood Pressure 1: 148/80 Code : 8480-6 Heart Rate 1: 60 bpm Respiratory Rate : 16 bpm Temperature: 36.6 (C) / 97.9 (F) Weight: 274 lbs 06/04/2011 Blood Pressure 1: 112/72 Code : 8480-6 BMI: 48.9 Code : 64474-9 Heart Rate 1 : 62 bpm Height: 5'3" Weight: 276 lbs 05/05/2011 Blood Pressure 1: 112/68 Code : 8480-6 BMI: 50.0 Code : 83014-4 Heart Rate 1 : 64 bpm Height: 5'3" Respiratory Rate: 16 bpm Weight: 282 lbs 04/07/2011 Blood Pressure 1: 122/66 Code : 8480-6 BMI: 50.0 Code : 78020-0 Heart Rate 1 : 62 bpm Height: 5'3" Respiratory Rate: 20 bpm Weight: 282 lbs 8 oz 03/17/2011 Blood Pressure 1: 136/72 Code : 8480-6 BMI: 50.0 Code : 15457-0 Height: 5'3" Respiratory Rate: 74 bpm SpO2: 96% Temperature: 36.9 (C) / 98.4 (F ) Weight: 282 lbs 01/21/2011 Blood Pressure 1: 136/84 Code : 8480-6 BMI: 50.0 Code : 79493-9 Heart Rate 1 : 56 bpm Height: 5'3" Waist Measure (cm): 124 cm Weight: 282 lbs 11/24/2010 Blood Pressure 1: 154/78 Code : 8480-6 Heart Rate 1: 60 bpm SpO2: 97% 11/20/2010 Blood Pressure 1: 172/84 Code : 8480-6 BMI: 50.3 Code : 09406-0 Heart Rate 1 : 56 bpm Height: 5'3" Respiratory Rate: 20 bpm SpO2: 98% Temperature: 36.8 (C) / 98.2 (F ) Weight: 284 lbs 11/06/2010 Blood Pressure 1: 117/47 Code : 8480-6 BMI: 50.1 Code : 92921-8 Heart Rate 1 : 75 bpm Height: 5'3" Weight: 283 lbs Functional Status No Functional Status data History of Present Illness Symptom Name Status Result Effective Date Notes sores Location-Major on the hands 07/20/2016 None sores Location-Extremities on the right hand 07/20/2016 None sores Quality acute None sores Onset and Resolution ongoing 07/20/2016 None sores Onset of Symptom 1 days ago 07/20/2016 None sores Frequency of Episodes increasing 07/20/2016 None sores Severity mild None sores Prior Treatments previously treated 07/20/2016 None sores Pertinent Findings Denies fever 07/20/2016 None sores Pertinent Findings pain 07/20/2016 None sores Pertinent Findings tenderness 07/20/2016 None sores Pertinent Findings Denies itching 07/20/2016 None Annual Medicare Wellness Exam Alcohol Use does not drink any alcohol 12/09/2015 None Annual Medicare Wellness Exam Aspirin Use no 12/09/2015 None Annual Medicare Wellness Exam Blood Glucose (self reported) never checked 12/09/2015 None Annual Medicare Wellness Exam Blood Pressure (self reported ) diagnosed with hypertension 12/09/2015 None Annual Medicare Wellness Exam Cholesterol (self reported) borderline high (200-239) 12/09/2015 None Annual Medicare Wellness Exam Depression (last 6 months) almost never 12/09/2015 None Annual Medicare Wellness Exam Depression or Hopelessness almost never 12/09/2015 None Annual Medicare Wellness Exam Describe Your Health fair 12/09/2015 None Annual Medicare Wellness Exam Exercise Habits exercises 6 days per week 12/09/2015 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 Annual Medicare Wellness Exam Handling Stress usually pete effectively 12/09/2015 None Annual Medicare Wellness Exam Hemaglobin A-1C (self reported ) desireable (6 or lower) 12/09/2015 None Annual Medicare Wellness Exam Hours of Sleep 6 12/09/2015 None Annual Medicare Wellness Exam Interaction with Friends yes 12/09/2015 None Annual Medicare Wellness Exam Interests & Pleasure almost all of the time 12/09/2015 None Annual Medicare Wellness Exam Life Satisfaction satisfied 12/09/2015 None Annual Medicare Wellness Exam Motor Vehicle Safety always fastens seat belt: y 12/09/2015 None Annual Medicare Wellness Exam Smoking and Tobacco Use non smoker 12/09/2015 None Annual Medicare Wellness Exam Nutrition servings of fried food / high fat foods per day: 0 2015 None Annual Medicare Wellness Exam Nutrition servings of high fiber / whole grain per day: 0 12/09/2015 does eat bread Annual Medicare Wellness Exam Nutrition servings of vegetables / fruit per day: 1-2 12/09/2015 veg 1 per day fruit 2 per day Annual Medicare Wellness Exam Social & Emotional Support always 12/09/2015 None Annual Medicare Wellness Exam Stress some of the time 12/09/2015 None Annual Medicare Wellness Exam Sun Exposure protects skin when outdoors: y 12/09/2015 None sores Location-Major on the arms 09/09/2015 right sores Color red 2015 None sores Length of Episodes 3 days 09/09/2015 None sores Pertinent Findings Denies pain 09/09/2015 None sores Pertinent Findings Denies itching 09/09/2015 None sores Quality acute None sores Onset and Resolution ongoing 09/09/2015 None sores Onset of Symptom 2 days ago 09/09/2015 None sores Severity mild painful sores Prior Treatments previously treated 09/09/2015 using mupirocin ointment sores Triggers pets visited a friend with indoor dogs diaphoresis Quality intermittent 06/11/2015 None diaphoresis Onset and Resolution ongoing 06/11/2015 None diaphoresis Onset of Symptom 2 weeks ago 06/11/2015 None diaphoresis Frequency of Episodes daily 06/11/2015 None diaphoresis Pertinent Findings cough 06/11/2015 None diaphoresis Pertinent Findings dizziness 06/11/2015 off and on in the day hours diaphoresis Pertinent Findings lightheadedness 06/11/2015 None myalgias Location on both feet 06/11/2015 None myalgias Location diffusely 06/11/2015 up to both legs myalgias Quality cramping 06/11/2015 None myalgias Quality intermittent 06/11/2015 None myalgias Onset and Resolution sudden in onset 06/11/2015 None myalgias Onset of Symptom 2 weeks ago 06/11/2015 None myalgias Limitation on Activities does not limit activities 06/11/2015 None myalgias Pertinent Findings Denies chills 06/11/2015 None myalgias Pertinent Findings nausea 06/11/2015 None cough Location in the throat 12/11/2014 None cough Quality productive 12/11/2014 phlegm cough Onset of Symptom 0 days ago 12/11/2014 None cough Pertinent Findings Denies chest discomfort 12/11/2014 None cough Pertinent Findings Denies dyspnea 12/11/2014 None cough Onset and Resolution ongoing 12/11/2014 None cough Limitation on Activities moderately limits activities 12/11/2014 None cough Frequency of Episodes increasing 12/11/2014 None cough Significant Medical Conditions cardiac disease 12/11/2014 None cough Triggers known allergens 12/11/2014 None Annual Medicare Wellness Exam Alcohol Use quit in _ 12/04/2014 occasionaly drinks wine Annual Medicare Wellness Exam Aspirin Use no 12/04/2014 None Annual Medicare Wellness Exam Blood Glucose (self reported) desireable (below 100) 12/04/2014 checks sugar occasionally Annual Medicare Wellness Exam Blood Pressure (self reported ) diagnosed with hypertension 12/04/2014 None Annual Medicare Wellness Exam Cholesterol (self reported) borderline high (200-239) 12/04/2014 None Annual Medicare Wellness Exam Depression (last 6 months) almost never 12/04/2014 None Annual Medicare Wellness Exam Depression or Hopelessness almost never 12/04/2014 None Annual Medicare Wellness Exam Describe Your Health good 12/04/2014 None Annual Medicare Wellness Exam Exercise Habits does not exercise 12/04/2014 None Annual Medicare Wellness Exam Exercise Habits exercises 90 minutes per day 12/04/2014 None Annual Medicare Wellness Exam Handling Stress usually pete effectively 12/04/2014 None Annual Medicare Wellness Exam Hemaglobin A-1C (self reported ) desireable (6 or lower) 12/04/2014 None Annual Medicare Wellness Exam Hours of Sleep 6 12/04/2014 None Annual Medicare Wellness Exam Interaction with Friends yes 12/04/2014 None Annual Medicare Wellness Exam Interests & Pleasure daily 12/04/2014 None Annual Medicare Wellness Exam Life Satisfaction very satisfied 12/04/2014 None Annual Medicare Wellness Exam Motor Vehicle Safety always fastens seat belt: _ 12/04/2014 None Annual Medicare Wellness Exam Nutrition servings of fried food / high fat foods per day: 0-1 2014 None Annual Medicare Wellness Exam Nutrition servings of high fiber / whole grain per day: 0 12/04/2014 None Annual Medicare Wellness Exam Nutrition servings of vegetables / fruit per day: 3 12/04/2014 None Annual Medicare Wellness Exam Smoking and Tobacco Use non smoker 12/04/2014 None Annual Medicare Wellness Exam Social & Emotional Support always 12/04/2014 None Annual Medicare Wellness Exam Stress almost never 12/04/2014 None Annual Medicare Wellness Exam Sun Exposure protects skin when outdoors: y 12/04/2014 None Annual Medicare Wellness Exam Alcohol Use drinks 0-1 days per week 12/04/2014 None cough Quality intermittent 10/23/2013 None cough Onset of Symptom 5 days ago 10/23/2013 None cough Limitation on Activities moderately limits activities 10/23/2013 None cough Pertinent Findings dyspnea 10/23/2013 None cough Pertinent Findings Denies chest discomfort 10/23/2013 None cough Pertinent Findings Denies fever 10/23/2013 None cough Pertinent Findings Denies purulent sputum 10/23/2013 None cough Pertinent Findings muscle aches 10/23/2013 None cough Onset and Resolution ongoing 10/23/2013 None cough Triggers no known associated factors 10/23/2013 None sinus congestion Quality acute 04/14/2013 None sinus congestion Pertinent Findings cough 04/14/2013 prod green sinus congestion Pertinent Findings Denies decreased energy level 04/14/2013 None sinus congestion Pertinent Findings facial pain 04/14/2013 None sinus congestion Pertinent Findings Denies fever 04/14/2013 None sinus congestion Pertinent Findings hoarseness 04/14/2013 also left ear ache sinus congestion Onset and Resolution ongoing 04/14/2013 None sinus congestion Onset of Symptom 3 weeks ago 04/14/2013 took a zpack with no relief sinus congestion Severity moderate 04/14/2013 None sinus congestion Significant Medical Conditions allergic rhinitis 04/14/2013 None sinus congestion Significant Medications antibiotics 04/14/2013 None sinus congestion Triggers no known associated factors 04/14/2013 None sinus congestion Location on both sides 04/14/2013 None back pain Location diffusely 01/05/2013 None back pain Location in the right lower back area 01/05/2013 None back pain Quality acute 01/05/2013 None back pain Onset and Resolution worse during the day 01/05/2013 None back pain Limitation on Activities does not limit activities 01/05/2013 None back pain Frequency of Episodes unchanged 01/05/2013 None back pain Triggers activity 01/05/2013 None back pain Radiating does not radiate 01/05/2013 None back pain Severity moderate 01/05/2013 None sinus congestion Onset and Resolution gradual in onset 04/11/2012 None sinus congestion Onset of Symptom 3-4 weeks ago 04/11/2012 None sinus congestion Pertinent Findings Denies cough 04/11/2012 None sinus congestion Severity moderate 04/11/2012 None sinus congestion Pertinent Findings Denies nasal obstruction 04/11/2012 states blowing green sinus congestion Significant Medications nasal spray 04/11/2012 saline sinus congestion Triggers allergens 04/11/2012 None sinus congestion Alleviating Factors medication 04/11/2012 None sinus congestion Location on both sides 04/11/2012 None sinus congestion Pertinent Findings facial pain 04/11/2012 None sinus congestion Pertinent Findings Denies hoarseness 04/11/2012 None sinus congestion Pertinent Findings Denies vomiting 04/11/2012 None sinus congestion Pertinent Findings Denies swollen glands 04/11/2012 None sinus congestion Quality pressure 04/11/2012 None hypertension Quality chronic 03/07/2012 None hypertension Onset and Resolution ongoing 03/07/2012 None hypertension Onset of Symptom during adulthood 03/07/2012 None hypertension Severity mild 03/07/2012 None hypertension Significant Medical Conditions cardiac disease 03/07/2012 None hypertension Triggers stress 03/07/2012 None hypertension Pertinent Findings Denies anxiety 03/07/2012 None hypertension Pertinent Findings Denies decreased energy 03/07/2012 None hypertension Pertinent Findings Denies dizziness 03/07/2012 None hypertension Pertinent Findings edema 03/07/2012 None hypertension Quality chronic 01/13/2012 None hypertension Onset and Resolution ongoing 01/13/2012 None hypertension Onset of Symptom during adulthood 01/13/2012 None hypertension Severity mild 01/13/2012 None hypertension Significant Medical Conditions cardiac disease 01/13/2012 None hypertension Triggers stress 01/13/2012 None hypertension Pertinent Findings Denies anxiety 01/13/2012 None hypertension Pertinent Findings Denies dizziness 01/13/2012 None hypertension Pertinent Findings Denies decreased energy 01/13/2012 None hypertension Pertinent Findings edema 01/13/2012 None Hospital Follow Up Quality acute 12/29/2011 None hypertension Quality chronic 12/29/2011 None hypertension Onset and Resolution ongoing 12/29/2011 None hypertension Blood Pressure Values patient checking blood pressure at home - did not bring in readings 12/29/2011 pressures are in the 100-110/60 range, heart ratein the 50's hypertension Severity mild 12/29/2011 None hypertension Significant Medical Conditions cardiac disease 12/29/2011 None hypertension Triggers stress 12/29/2011 None hypertension Alleviating Factors medication 12/29/2011 None hypertension Pertinent Findings anxiety 12/29/2011 None hypertension Pertinent Findings decreased energy 12/29/2011 None hypertension Pertinent Findings dizziness 12/29/2011 None hypertension Pertinent Findings dyspnea 12/29/2011 None hypertension Pertinent Findings edema 12/29/2011 None chest pain/pressure Radiating the left shoulder 12/21/2011 None chest pain/pressure Location on the left side of on the chest 12/21/2011 None chest pain/pressure Quality acute 12/21/2011 None chest pain/pressure Onset and Resolution ongoing 12/21/2011 None chest pain/pressure Onset of Symptom 2 days ago 12/21/2011 None chest pain/pressure Limitation on Activities moderately limits activities 12/21/2011 None sinus congestion Onset and Resolution ongoing 12/21/2011 None sinus congestion Onset of Symptom 3 weeks ago 12/21/2011 None sinus congestion Severity moderate 12/21/2011 None sinus congestion Timing of Episodes all day long 12/21/2011 None sinus congestion Significant Medical Conditions allergic rhinitis 12/21/2011 None sinus congestion Triggers allergens 12/21/2011 None sinus congestion Alleviating Factors immunotherapy 12/21/2011 None sinus congestion Alleviating Factors medication 12/21/2011 None sinus congestion Pertinent Findings cough 12/21/2011 green and brown sinus congestion Pertinent Findings decreased energy level 12/21/2011 None sinus congestion Pertinent Findings facial pain 12/21/2011 None sinus congestion Pertinent Findings Denies vomiting 12/21/2011 None sinus congestion Location on the left 12/21/2011 None sinus congestion Location on the right 12/21/2011 None sinus congestion Quality worsening 12/21/2011 None sinus congestion Quality pain 12/21/2011 None cough Location in the lung 12/21/2011 None cough Quality acute None cough Onset and Resolution ongoing 12/21/2011 None cough Onset of Symptom 3 weeks ago 12/21/2011 None cough Limitation on Activities does not limit activities 12/21/2011 None cough Timing of Episodes in the morning 12/21/2011 coughs up green/brown cough Significant Medical Conditions cardiac disease 12/21/2011 None cough Significant Medical Conditions pulmonary disease 12/21/2011 None cough Triggers ill contacts 12/21/2011 None cough Pertinent Findings Denies apnea 12/21/2011 None cough Pertinent Findings chest discomfort 12/21/2011 None cough Pertinent Findings Denies dysphagia 12/21/2011 None cough Pertinent Findings dyspnea 12/21/2011 None cough Pertinent Findings facial pain 12/21/2011 None cough Pertinent Findings Denies hoarseness 12/21/2011 None cough Pertinent Findings sputum production 12/21/2011 None cough Pertinent Findings Denies vomiting 12/21/2011 None chest pain/pressure Frequency of Episodes increasing 12/21/2011 None chest pain/pressure Triggers no known associated factors 12/21/2011 None chest pain/pressure Pertinent Findings Denies back pain 12/21/2011 None chest pain/pressure Pertinent Findings dyspnea 12/21/2011 None chest pain/pressure Pertinent Findings cough 12/21/2011 None chest pain/pressure Pertinent Findings Denies confusion 12/21/2011 None chest pain/pressure Pertinent Findings Denies lightheadedness 12/21/2011 None chest pain/pressure Pertinent Findings Denies nausea 12/21/2011 None chest pain/pressure Pertinent Findings Denies syncope 12/21/2011 None chest pain/pressure Pertinent Findings Denies vomiting 12/21/2011 None oral lesion Location on the right 11/25/2011 lower lip-states she had a fluid pocket removed by the dentist on Wednesday with 3 stitches. States today it is more tender, swollen and reddened oral lesion Onset and Resolution ongoing 11/25/2011 None oral lesion Onset of Symptom 2 days ago 11/25/2011 None oral lesion Limitation on Activities does not limit oral intake 11/25/2011 None oral lesion Frequency of Episodes increasing 11/25/2011 None oral lesion Triggers activity 11/25/2011 None oral lesion Alleviating Factors rest 11/25/2011 None Weight follow up Quality chronic 11/11/2011 None hypertension Quality chronic 11/11/2011 None hypertension Onset and Resolution ongoing 11/11/2011 None Weight follow up Onset of Symptom _ years ago 11/11/2011 None Weight follow up Onset and Resolution ongoing 11/11/2011 None Weight follow up Severity moderate 11/11/2011 None hypertension Blood Pressure Values not checking blood pressure at home 11/11/2011 None hypertension Severity not consistently severe symptoms, the symptoms fluctuate from no symptoms to anxiety and headaches 11/11/2011 None hypertension Frequency of Episodes unchanged 11/11/2011 None hypertension Significant Medical Conditions cardiac disease 11/11/2011 None hypertension Triggers stress 11/11/2011 None hypertension Alleviating Factors medication 11/11/2011 None hypertension Pertinent Findings Denies dizziness 11/11/2011 None hypertension Pertinent Findings Denies dyspnea 11/11/2011 None hypertension Pertinent Findings Denies edema 11/11/2011 None hypertension Pertinent Findings obesity 11/11/2011 None hypertension Pertinent Findings Denies palpitations 11/11/2011 None hypertension Pertinent Findings Denies orthostatic hypotension 11/11/2011 None Weight follow up Exacerbating Factors rest 11/11/2011 None Weight follow up Alleviating Factors activity 11/11/2011 None Weight follow up Location diffusely 11/11/2011 None sinus congestion Location frontal sinuses 10/21/2011 None oral lesion Location on the upper lip 10/21/2011 lesion on left upper lip- irritated. Patient states it is enlarging over the past 6 months oral lesion Quality erythematous 10/21/2011 None oral lesion Onset and Resolution ongoing 10/21/2011 None oral lesion Onset of Symptom 6 months ago 10/21/2011 None oral lesion Limitation on Activities does not limit oral intake 10/21/2011 None oral lesion Frequency of Episodes increasing 10/21/2011 None sinus congestion Location maxillary sinuses 10/21/2011 None sinus congestion Quality fullness 10/21/2011 green drainage sinus congestion Quality pressure 10/21/2011 None sinus congestion Quality pain 10/21/2011 None sinus congestion Onset and Resolution ongoing 10/21/2011 None sinus congestion Onset of Symptom 10 days ago 10/21/2011 None sinus congestion Severity moderate 10/21/2011 None sinus congestion Frequency of Episodes increasing 10/21/2011 None sinus congestion Significant Medical Conditions allergic rhinitis 10/21/2011 None sinus congestion Significant Medications decongestants 10/21/2011 None sinus congestion Significant Medications nasal spray 10/21/2011 None sinus congestion Triggers allergens 10/21/2011 None sinus congestion Pertinent Findings Denies cough 10/21/2011 None sinus congestion Pertinent Findings decreased energy level 10/21/2011 None sinus congestion Pertinent Findings facial pain 10/21/2011 None sinus congestion Pertinent Findings Denies facial numbness 10/21/2011 None sinus congestion Pertinent Findings Denies hoarseness 10/21/2011 None sinus congestion Pertinent Findings Denies nasal crusting 10/21/2011 None sinus congestion Pertinent Findings Denies nasal obstruction 10/21/2011 None sinus congestion Pertinent Findings Denies vomiting 10/21/2011 None obesity Location diffusely 10/14/2011 None obesity Quality chronic 10/14/2011 None obesity Onset and Resolution ongoing 10/14/2011 None sinus congestion Onset and Resolution ongoing 10/14/2011 None sinus congestion Onset of Symptom 10 weeks ago 10/14/2011 None sinus congestion Severity mild 10/14/2011 None sinus congestion Timing of Episodes all day long 10/14/2011 None sinus congestion Frequency of Episodes increasing 10/14/2011 None sinus congestion Triggers no known associated factors 10/14/2011 None sinus congestion Exacerbating Factors allergen exposure 10/14/2011 None sinus congestion Pertinent Findings Denies cough 10/14/2011 None sinus congestion Pertinent Findings facial pain 10/14/2011 None sinus congestion Quality acute 10/14/2011 None sinus congestion Quality fullness 10/14/2011 None sinus congestion Quality pressure 10/14/2011 None obesity Severity moderate 10/14/2011 None obesity Weight Status is morbidly obese 10/14/2011 None obesity Frequency of Episodes unchanged 10/14/2011 None obesity Significant Medical Conditions hypothyroidism 10/14/2011 None obesity Triggers no known associated factors 10/14/2011 None abdominal pain Quality acute 09/02/2011 None abdominal pain Pertinent Findings Denies abdominal distension 09/02/2011 None abdominal pain Pertinent Findings back pain 09/02/2011 states pain also goes into shoulder. states has hx of anerusym. abdominal pain Onset of Symptom 5 days ago 09/02/2011 This episode started about 5 days ago. Pain comes and goes. abdominal pain Radiating the flank 09/02/2011 None abdominal pain Radiating the back 09/02/2011 None abdominal pain Quality chronic 09/02/2011 off and on for "years" abdominal pain Onset and Resolution ongoing 09/02/2011 None abdominal pain Location in the LUQ 09/02/2011 None abdominal pain Limitation on Activities does not limit activities 09/02/2011 None abdominal pain Frequency of Episodes unchanged 09/02/2011 None abdominal pain Significant Medical Conditions obseity 09/02/2011 None abdominal pain Significant Medical Conditions acid reflux 09/02/2011 None abdominal pain Triggers no known associated factors 09/02/2011 None abdominal pain Pertinent Findings Denies vomiting 09/02/2011 None abdominal pain Pertinent Findings Denies nausea 09/02/2011 Denies diarrhea or constipation edema Onset and Resolution gradual in onset 08/10/2011 None edema Location on both ankles 08/10/2011 None edema Pertinent Findings Denies dyspnea 08/10/2011 None cough Onset of Symptom 1 days ago 08/10/2011 None edema Onset of Symptom 5-6 days ago 08/10/2011 None edema Limitation on Activities does not limit activities 08/10/2011 None edema Frequency of Episodes increasing 08/10/2011 States she is also [employer], 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 edema Significant Medications diuretics 08/10/2011 None edema Significant Past Medical History cardiac disease 08/10/2011 None edema Triggers prolonged sitting 08/10/2011 None edema Triggers standing position 08/10/2011 States she worked 12 hours on Wednesday edema Alleviating Factors medication 08/10/2011 None cough Location in the lung 08/10/2011 None cough Quality acute None cough Onset and Resolution ongoing 08/10/2011 None cough Limitation on Activities does not limit activities 08/10/2011 None cough Frequency of Episodes increasing 08/10/2011 None cough Significant Medical Conditions cardiac disease 08/10/2011 None cough Significant Medical Conditions pulmonary disease 08/10/2011 Used symbicort this morning. cough Triggers known allergens 08/10/2011 None earache Location right ear 07/14/2011 None earache Quality acute 07/14/2011 None earache Onset of Symptom 3-4 days ago 07/14/2011 None sinus congestion Quality acute 07/14/2011 None earache Severity mild 07/14/2011 None earache Significant Medical Conditions upper respiratory infection 07/14/2011 None earache Triggers allergies 07/14/2011 None sinus congestion Quality chronic 07/14/2011 pt has chronic issues with sinusitis - but this episode is her most recent exacerbation/recurrence. sinus congestion Onset and Resolution gradual in onset 07/14/2011 None sinus congestion Onset of Symptom 3+ days ago 07/14/2011 None sinus congestion Severity mild 07/14/2011 None sinus congestion Frequency of Episodes increasing 07/14/2011 None sinus congestion Significant Medical Conditions allergic rhinitis 07/14/2011 None sinus congestion Triggers no known associated factors 07/14/2011 None sinus congestion Pertinent Findings Denies cough 07/14/2011 None sinus congestion Pertinent Findings decreased energy level 07/14/2011 None sinus congestion Pertinent Findings facial pain 07/14/2011 None cough Location in the lung 07/02/2011 None cough Quality improving 07/02/2011 None hypertension Quality chronic 07/02/2011 None hypertension Onset and Resolution ongoing 07/02/2011 None hypertension Blood Pressure Values pt checking blood pressure - see scanned document 07/02/2011 None hypertension Pertinent Findings decreased energy 07/02/2011 None hypertension Pertinent Findings dizziness 07/02/2011 None hypertension Pertinent Findings lethargy 07/02/2011 None cough Quality chronic 07/02/2011 None cough Onset and Resolution worse during the day 07/02/2011 None cough Limitation on Activities moderately limits activities 07/02/2011 None cough Occupational Exposure work 07/02/2011 works at a [employer]. cough Triggers ill contacts 07/02/2011 None cough Triggers post nasal drip 07/02/2011 None cough Triggers exercise 07/02/2011 None cough Triggers recumbent position 07/02/2011 more post nasal drainage at night cough Pertinent Findings chest discomfort 07/02/2011 None cough Pertinent Findings chills 07/02/2011 None cough Pertinent Findings dyspnea 07/02/2011 None cough Exacerbating Factors exercise 07/02/2011 None shortness of breath Quality acute 07/02/2011 None shortness of breath Limitation on Activities moderately limits activities 07/02/2011 --Improved shortness of breath Significant Medications diuretics 07/02/2011 None shortness of breath Significant Medications antibiotics 07/02/2011 None shortness of breath Significant Medications steroids 07/02/2011 None hypertension Triggers stress 07/02/2011 None hypertension Alleviating Factors medication 07/02/2011 None hypertension Exacerbating Factors stress 07/02/2011 None hypertension Severity mild 07/02/2011 None shortness of breath Onset and Resolution ongoing 07/02/2011 but improved shortness of breath Triggers stress 07/02/2011 None shortness of breath Alleviating Factors inhalers / nebulizer 07/02/2011 None shortness of breath Alleviating Factors rest 07/02/2011 None shortness of breath Exacerbating Factors exertion 07/02/2011 None shortness of breath Exacerbating Factors lying down 07/02/2011 None hypertension Quality chronic 06/25/2011 None hypertension Onset and Resolution ongoing 06/25/2011 None hypertension Blood Pressure Values patient checking blood pressure at home - did not bring in readings 06/25/2011 pressures are in the 100-110/60 range, heart ratein the 50's hypertension Severity mild 06/25/2011 None hypertension Significant Medical Conditions cardiac disease 06/25/2011 None hypertension Triggers stress 06/25/2011 None hypertension Alleviating Factors medication 06/25/2011 None hypertension Pertinent Findings anxiety 06/25/2011 None hypertension Pertinent Findings decreased energy 06/25/2011 None hypertension Pertinent Findings dizziness 06/25/2011 None hypertension Pertinent Findings dyspnea 06/25/2011 None hypertension Pertinent Findings edema 06/25/2011 None shortness of breath Quality acute 06/16/2011 None shortness of breath Onset and Resolution sudden in onset 06/16/2011 None shortness of breath Onset of Symptom 1 weeks ago 06/16/2011 None shortness of breath Onset of Symptom 1 days ago 06/16/2011 -became acutely short of air this morning and has worsened throughout the day shortness of breath Limitation on Activities moderately limits activities 06/16/2011 None shortness of breath Frequency of Episodes increasing 06/16/2011 None shortness of breath Significant Medications diuretics 06/16/2011 None shortness of breath Significant Medications antibiotics 06/16/2011 None shortness of breath Significant Medications steroids 06/16/2011 None sinus congestion Onset and Resolution ongoing 06/15/2011 None sinus congestion Severity moderate 06/15/2011 states no improvement on antibiotic sinus congestion Pertinent Findings cough 06/15/2011 None sinus congestion Pertinent Findings decreased energy level 06/15/2011 None sinus congestion Onset of Symptom 1 weeks ago 06/15/2011 None sinus congestion Timing of Episodes all day long 06/15/2011 None sinus congestion Significant Medications antibiotics 06/15/2011 None sinus congestion Triggers no known associated factors 06/15/2011 None weight gain/obesity Location globally 06/04/2011 None weight gain/obesity Quality chronic 06/04/2011 None weight gain/obesity Onset and Resolution ongoing 06/04/2011 None weight gain/obesity Frequency of Episodes unchanged 06/04/2011 None weight gain/obesity Triggers unintentional weight gain 06/04/2011 None weight gain/obesity Pertinent Findings Denies cold intolerance 06/04/2011 None weight gain/obesity Pertinent Findings Denies depressed mood 06/04/2011 None weight gain/obesity Pertinent Findings dyspnea 06/04/2011 None weight gain/obesity Pertinent Findings Denies nausea 06/04/2011 None knee pain Quality throbbing 05/05/2011 None knee pain Alleviating Factors NSAID's 05/05/2011 ibuprofen & tylenol arthritis knee pain Alleviating Factors rest 05/05/2011 None knee pain Mechanism of injury direct trauma 05/05/2011 None weight gain/obesity Location globally 05/05/2011 None weight gain/obesity Quality chronic 05/05/2011 None weight gain/obesity Onset and Resolution ongoing 05/05/2011 None weight gain/obesity Frequency of Episodes unchanged 05/05/2011 None weight gain/obesity Diet is unchanged 05/05/2011 None weight gain/obesity Triggers unintentional weight gain 05/05/2011 None arm pain Location left arm 04/07/2011 None arm pain Quality aching 04/07/2011 None arm pain Onset of Symptom 2 days ago 04/07/2011 None arm pain Severity mild 04/07/2011 None arm pain Radiating to the hand 04/07/2011 None arm pain Quality acute 04/07/2011 None arm pain Onset and Resolution gradual in onset 04/07/2011 None arm pain Limitation on Activities allows weight bearing activity 04/07/2011 None arm pain Significant Medical Conditions obesity 04/07/2011 None arm pain Mechanism of injury unknown 04/07/2011 None arm pain Alleviating Factors heat 04/07/2011 None weight gain/obesity Location globally 04/07/2011 None weight gain/obesity Quality chronic 04/07/2011 None weight gain/obesity Onset and Resolution ongoing 04/07/2011 None weight gain/obesity Onset of Symptom _ years ago 04/07/2011 None weight gain/obesity Frequency of Episodes unchanged 04/07/2011 None weight gain/obesity Diet is unchanged 04/07/2011 None weight gain/obesity Triggers unintentional weight gain 04/07/2011 None weight gain/obesity Location globally 03/17/2011 None weight gain/obesity Quality chronic 03/17/2011 None weight gain/obesity Onset and Resolution ongoing 03/17/2011 None weight gain/obesity Onset of Symptom _ years ago 03/17/2011 None weight gain/obesity Frequency of Episodes unchanged 03/17/2011 None weight gain/obesity Diet is unchanged 03/17/2011 None weight gain/obesity Triggers unintentional weight gain 03/17/2011 None weight gain/obesity Triggers sedentary lifestyle 03/17/2011 None sinus congestion Onset and Resolution ongoing 03/17/2011 None sinus congestion Onset of Symptom 2-3 weeks ago 03/17/2011 None sinus congestion Severity moderate 03/17/2011 None sinus congestion Significant Medical Conditions allergic rhinitis 03/17/2011 None sinus congestion Triggers allergens 03/17/2011 None well woman exam (40-65 years) Pap Smear normal results 01/21/2011 -due for pap well woman exam (40-65 years) Lifestyle satisfactory work experience 01/21/2011 None well woman exam (40-65 years) Lifestyle regular seatbelt use 01/21/2011 None well woman exam (40-65 years) Nutrition and Exercise overweight 01/21/2011 None well woman exam (40-65 years) Cardiovascular Risk Factors hypertension 01/21/2011 None well woman exam (40-65 years) Cardiovascular Risk Factors obesity 01/21/2011 None well woman exam (40-65 years) [facility]ance self-breast exam 01/21/2011 None well woman exam (40-65 years) [facility] baseline mammogram 01/21/2011 None well woman exam (40-65 years) Health [facility] regular exercise 01/21/2011 None well woman exam (40-65 years) [facility] colonoscopy/sigmoidoscopy 01/21/2011 None sore throat Onset and Resolution resolved 11/24/2010 None blood pressure followup Quality chronic 11/24/2010 None blood pressure followup Onset and Resolution ongoing 11/24/2010 None blood pressure followup Blood Pressure Values not checking blood pressure at home 11/24/2010 None blood pressure followup Triggers stress 11/24/2010 None sore throat Location diffusely. 11/24/2010 -Improved from last week. Currently on antibiotics. cough Location in the throat 11/24/2010 None cough Location in the lung 11/24/2010 None cough Quality acute None cough Onset and Resolution ongoing 11/24/2010 None sinus congestion Quality acute 11/20/2010 None sinus congestion Quality fullness 11/20/2010 None sinus congestion Quality pain 11/20/2010 None sinus congestion Quality pressure 11/20/2010 None sinus congestion Onset and Resolution ongoing 11/20/2010 None sinus congestion Onset of Symptom 2 weeks ago 11/20/2010 None sinus congestion Severity moderate 11/20/2010 None sinus congestion Frequency of Episodes increasing 11/20/2010 None sore throat Location diffusely 11/20/2010 None sore throat Quality acute 11/20/2010 None sore throat Onset and Resolution ongoing 11/20/2010 None sore throat Onset of Symptom 2 weeks ago 11/20/2010 None sore throat Limitation on Activities does not limit oral intake 11/20/2010 None shortness of breath Quality acute 11/20/2010 None shortness of breath Onset and Resolution gradual in onset 11/20/2010 None shortness of breath Onset and Resolution ongoing 11/20/2010 None shortness of breath Onset of Symptom 2 weeks ago 11/20/2010 None earache Location both ears 11/06/2010 more so in the right ear earache Onset of Symptom 1 weeks ago 11/06/2010 None earache Severity moderate 11/06/2010 None facial pain Location on both cheeks 11/06/2010 None facial pain Quality chronic 11/06/2010 None facial pain Onset of Symptom 1 weeks ago 11/06/2010 None dizziness Quality imbalance 11/06/2010 None dizziness Onset of Symptom 1 weeks ago 11/06/2010 None dizziness Triggers standing position 11/06/2010 None nasal discharge Location in both nares 11/06/2010 None nasal discharge Quality acute 11/06/2010 brown in color cough Quality nocturnal only 11/06/2010 None sinusitis Location in the bilateral frontal sinuses 11/06/2010 None sinusitis Location in the bilateral maxillary sinuses 11/06/2010 None sinusitis Onset and Resolution gradual in onset 11/06/2010 None sinusitis Onset and Resolution ongoing 11/06/2010 None sinusitis Pertinent Findings Denies facial pain 11/06/2010 None sinusitis Pertinent Findings Denies fatigue 11/06/2010 None sinusitis Pertinent Findings Denies headache 11/06/2010 None sinusitis Pertinent Findings Denies sinus pain 11/06/2010 None sinusitis Pertinent Findings Denies sinus pressure 11/06/2010 None sinusitis Quality acute 11/06/2010 None sinusitis Quality pain 11/06/2010 None sinusitis Quality pressure 11/06/2010 None sinusitis Severity moderate 11/06/2010 None Advance Directives No Advance Directive data Encounters Encounter Performer Location Codes Date ([id number]) Miscellaneous no charge Diagnosis: Essential (primary) hypertension[ICD10: I10] Lacy Do MD, [facility] CPT-4: 24741 01/11/2017 ([id number]) Miscellaneous no charge Diagnosis: Other injury of unspecified body region[ICD10: T14.8] Lacy Do MD, [facility] CPT-4: 28323 10/08/2016 86914 EST. PATIENT, LEVEL II Diagnosis: Laceration without foreign body of right hand, initial encounter[ ICD10: S61.411A] Roberta Do MD, [facility] CPT-4: 10705 07/20/2016 ([id number]) 11775 EST. PATIENT, LEVEL III Diagnosis: Laceration without foreign body of right forearm, initial encounter[ ICD10: S51.811A] Roberta Do MD, [facility] CPT-4: 12783 09/09/2015 ([id number]) Miscellaneous no charge Diagnosis: Cellulitis of right upper limb[ICD10: L03.113] Roberta Do MD, [facility] CPT-4: 31309 08/02/2015 ([id number]) 41950 EST. PATIENT, LEVEL III Diagnosis: Essential (primary) hypertension[ICD10: I10] Diagnosis: Hypothyroidism, unspecified[ICD10: E03.9] Diagnosis: Vitamin D deficiency, unspecified[ICD10: E55.9] Roberta Do MD, [facility] CPT-4: 46309 06/11/2015 89151 EST. PATIENT, LEVEL III Diagnosis: Allergic rhinitis, unspecified[ICD10: J30.9] Roberta Do MD, [facility] CPT-4: 87856 12/11/2014 ([id number]) 36490 EST. PATIENT, LEVEL III Diagnosis: EDEMA[ICD9: 782.3] Diagnosis: Dyspnea[ICD9: 786.09] Roberta Do MD, [facility] CPT-4: 79957 10/23/2013 ([id number]) 20524 EST. PATIENT, LEVEL III Diagnosis: ACUTE MAXILLARY SINUSITIS[ICD9: 461.0] Diagnosis: COUGH[ICD9: 786.2] Roberta Do MD, [facility] CPT-4: 39984 04/14/2013 ([id number]) 27490 EST. PATIENT, LEVEL III Diagnosis: ACUTE SINUSITIS[ICD9: 461.9] Roberta Do MD, [facility] CPT-4: 16020 04/11/2012 ([id number]) Miscellaneous no charge Diagnosis: ALLERGIC RHINITIS[ICD9: 477.9] Lacy Do MD [facility] CPT- 4: 21090 03/23/2012 ([id number]) 09272 EST. PATIENT, LEVEL III Diagnosis: ESSENTIAL HYPERTENSION[SNOMED: 92594025] Diagnosis: EDEMA[ICD9: 782.3] MARCOS Chavira MD CPT-4: 98940 03/07/2012 ([id number]) 47345 EST. PATIENT, LEVEL III Diagnosis: ESSENTIAL HYPERTENSION[SNOMED: 64399560] Lacy Do MD [facility] CPT-4: 10235 01/13/2012 ([id number]) 16619 EST. PATIENT, LEVEL IV Diagnosis: ATRIAL FIBRILLATION[ICD9: 427.31] Diagnosis: EDEMA[ICD9: 782.3] Diagnosis: BACTERIAL PNEUMONIA[ICD9: 482.9] Lacy Do MD [facility] CPT-4: 63591 12/29/2011 ([id number]) Patient admitted to the hospital from clinic (NO CHARGE) Diagnosis: Pneumonia[ICD9: 486] Diagnosis: ESSENTIAL HYPERTENSION[SNOMED: 91691028] Diagnosis: Chest pain[ICD9: 786.50] Lacy Do MD [facility] CPT-4: 05296Q 12/21/2011 37011 EST. PATIENT, LEVEL II Diagnosis: Cellulitis of lip[ICD9: 528.5] Roberta Do MD [facility] CPT-4: 34480 11/25/2011 ([id number]) 09783 EST. PATIENT, LEVEL IV Diagnosis: ESSENTIAL HYPERTENSION[SNOMED: 27420363] Diagnosis: OBESITY[ICD9: 278.00] Diagnosis: Immunization, pneumococcus and influenza[ICD9: V06.6] Lacy Do MD [facility] CPT-4: 17943 11/11/2011 62662 EST. PATIENT, LEVEL III Diagnosis: ACUTE SINUSITIS[ICD9: 461.9] Lacy Do MD [facility] CPT- 4: 24265 10/21/2011 ([id number]) 21400 EST. PATIENT, LEVEL IV Diagnosis: Allergic rhinitis[ICD9: 477.9] Diagnosis: EDEMA[ICD9: 782.3] Diagnosis: OBESITY[ICD9: 278.00] Lacy Do MD [facility] CPT-4: 10074 10/14/2011 02440 EST. PATIENT, LEVEL IV Diagnosis: LUQ abdominal pain[ICD9: 789.02] Diagnosis: Aneurysm, splenic artery[ICD9: 442.83] Diagnosis: Hematuria[ICD9: 599.70] Lacy Do MD [facility] CPT-4: 00841 09/02/2011 95731 EST. PATIENT, LEVEL III Diagnosis: ALLERGIC RHINITIS[ICD9: 477.9] Diagnosis: COUGH[ICD9: 786.2] Diagnosis: EDEMA[ICD9: 782.3] Lacy Do MD [facility] CPT-4: 88189 08/10/2011 ([id number]) 09759 EST. PATIENT, LEVEL IV Diagnosis: Chronic sinusitis[ICD9: 473.9] Diagnosis: Otalgia[ICD9: 388.70] Diagnosis: Congestion of throat[ICD9: 784.99] Diagnosis: Benign essential tremor syndrome[ICD9: 333.1] Diagnosis: OBESITY[ICD9: 278.00] Lacy Do MD [facility] CPT-4: 58935 07/14/2011 ([id number]) 97428 EST. PATIENT, LEVEL IV Diagnosis: COUGH[ICD9: 786.2] Diagnosis: Dyspnea[ICD9: 786.09] Diagnosis: ESSENTIAL HYPERTENSION[SNOMED: 57076012] Lacy Do MD [facility] CPT-4: 36369 07/02/2011 ([id number]) 63674 EST. PATIENT, LEVEL IV Diagnosis: ESSENTIAL HYPERTENSION[SNOMED: 21182006] Diagnosis: EDEMA[ICD9: 782.3] Diagnosis: BACTERIAL PNEUMONIA[ICD9: 482.9] Diagnosis: COUGH[ICD9: 786.2] Diagnosis: Hoarse[ICD9: 784.42] Lacy Do MD [facility] CPT-4: 04359 06/25/2011 ([id number]) Patient admitted to the hospital from clinic (NO CHARGE) Diagnosis: Pneumonia[ICD9: 486] Diagnosis: Hypoxemia[ICD9: 799.02] Diagnosis: Diarrhea[ICD9: 787.91] Lacy Do MD, [facility] CPT-4: 82473N 06/16/2011 ([id number]) 32873 EST. PATIENT, LEVEL IV Diagnosis: ACUTE MAXILLARY SINUSITIS[ICD9: 461.0] Diagnosis: COUGH[ICD9: 786.2] Diagnosis: Diarrhea[ICD9: 787.91] Lacy Do MD, [facility] CPT-4: 77749 06/15/2011 ([id number]) 29143 EST. PATIENT, LEVEL IV Diagnosis: BACTERIAL PNEUMONIA[ICD9: 482.9] Diagnosis: Cough[ICD9: 786.2] Diagnosis: Fatigue[ICD9: 780.79] Diagnosis: OBESITY[ICD9: 278.00] Lacy Do MD, [facility] CPT-4: 64454 06/04/2011 ([id number]) 95244 EST. PATIENT, LEVEL III Diagnosis: ESSENTIAL HYPERTENSION[SNOMED: 87120962] Diagnosis: Knee pain, acute[ICD9: 719.46] Diagnosis: OBESITY[ICD9: 278.00] Lacy Do MD, [facility] CPT-4: 89239 05/05/2011 ([id number]) 52329 EST. PATIENT, LEVEL IV Diagnosis: ESSENTIAL HYPERTENSION[SNOMED: 37460102] Diagnosis: OBESITY[ICD9: 278.00] Diagnosis: Atrial fibrillation[ICD9: 427.31] Lacy Do MD, [facility] CPT-4: 91227 04/07/2011 ([id number]) 36314 EST. 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 PATIENT, LEVEL III Diagnosis: ESSENTIAL HYPERTENSION[SNOMED: 13527788] Diagnosis: ACUTE URI[ICD9: 465.9] Lacy Do MD, [facility] CPT-4: 72308 11/24/2010 34077 EST. PATIENT, LEVEL III Diagnosis: Acute maxillary sinusitis[ICD9: 461.0] Diagnosis: ESSENTIAL HYPERTENSION[SNOMED: 83460286] Diagnosis: ACUTE URI[ICD9: 465.9] [facility] CPT-4: 37108 11/20/2010 26904 EST. PATIENT, LEVEL III Diagnosis: ACUTE MAXILLARY SINUSITIS[ICD9: 461.0] Roberat Do MD, [facility] CPT-4: 72078 11/06/2010 Plan of Care Planned Activity Notes Codes Status Date Patient Education: Patient Medication Summary Completed 03/15/2017 Appointment: Nurse Visit 01/11/2017 Patient Education: Patient Medication Summary Completed 01/11/2017 Patient Education: Hypertension Completed 01/11/2017 Appointment: Nurse Visit 12/31/2016 Patient Education: Patient Medication Summary Completed 12/31/2016 Care Plan: Urine Culture Cancelled 12/31/2016 Appointment: Nurse Visit 11/03/2016 Patient Education: Patient Medication Summary Completed 11/03/2016 Appointment: Lab Draw 10/29/2016 Patient Education: Patient Medication Summary Completed 10/29/2016 Appointment: Nurse Visit 10/08/2016 Patient Education: Patient Medication Summary Completed 10/08/2016 Patient Education: Patient Medication Summary Completed 09/15/2016 Visit Plan: Skin tear-dorsum of left hand-wound cleansed today in the office-medihoney applied and covered with non stick telfa and wrap with gauze. Will continue daily dressing changes. Monitor for s/s of infection. 07/20/2016 Visit Plan: Skin tear-dorsum of left hand-wound cleansed today in the office-medihoney applied and covered with non stick telfa and wrap with gauze. Will continue daily dressing changes. Monitor for s/s of infection. 07/20/2016 Appointment: Roberta Isaacs WPtel: [address] [place], [place] [phone] (15 min) Moderate 07/20/2016 Patient Education: Patient Medication Summary Completed 07/20/2016 Visit Plan: Annual Medicare Exam - today we discussed the patients past history, immunizations, preventative exams/evaluations - colonoscopy, fecal occult blood testing, routine labs for renal function, glucose, cholesterol, osteoporosis evaluations, cardiovascular testing and cancer screenings. We have also discussed mental health and the signs/symptoms of depression. The patient was advised of home safety evaluations and the need to make sure that as the aging process continues, we need to be aware of different ways to make the home a safer place to reside. The patient has also been counseled that exercise is necessary - and of utmost importance as we age to help decrease fall risk and to maintain independece in the home. 12/09/2015 Appointment: Roberta Isaacs WPtel: [phone] [phone] MCR - Annual Wellness Visit 12/09/2015 Patient Education: Patient Medication Summary Completed 12/09/2015 Patient Education: Obesity Completed 12/09/2015 Patient Education: Patient Medication Summary Completed 11/13/2015 Patient Education: Patient Medication Summary Completed 10/15/2015 Patient Education: Patient Medication Summary Completed 10/14/2015 Appointment: Lab Draw 09/24/2015 Patient Education: Patient Medication Summary Completed 09/24/2015 Appointment: Nurse Visit 09/13/2015 Patient Education: Patient Medication Summary Completed 09/13/2015 Visit Plan: Skin tear right forearm-dressing change today in the office-continue daily dressing changes until healed as instructed-call for any s/s of infection or other concerns. 09/09/2015 Appointment: Roberta Isaacs WPtel: [phone] [phone] (15 min) Moderate 09/09/2015 Patient Education: Patient Medication Summary Completed 09/09/2015 Patient Education: Patient Medication Summary Completed 09/05/2015 Appointment: Lab Draw 08/05/2015 Patient Education: Patient Medication Summary Completed 08/05/2015 Appointment: Lab Draw 08/02/2015 Patient Education: Patient Medication Summary Completed 08/02/2015 Appointment: Lab Draw 06/12/2015 Patient Education: Patient Medication Summary Completed 06/12/2015 Visit Plan: Hypertension - well controlled - continue with current medications, continue with no added salt diet. Pt has been encouraged to exercise daily. The pt has been advised to call the office if there are any acute concerns about change in blood pressure readings at home. Vitamin D deficiency-50,000 units weekly x 12 weeks vitamin d3 5000 units daily Hypothyroidism-patient currently off supplementation but TSH is increasing-plan to monitor and depending on symptoms, repeat labs in 2-3 months 06/11/2015 Appointment: Roberta Isaacs WPtel: [phone] [phone] (15 min) Moderate 06/11/2015 Patient Education: Patient Medication Summary Completed 06/11/2015 Patient Education: Hypertension Completed 06/11/2015 Patient Education: Patient Medication Summary Completed 06/11/2015 Appointment: Injection 03/27/2015 Patient Education: Patient Medication Summary Completed 03/27/2015 Appointment: Nurse Visit 12/24/2014 Patient Education: Patient Medication Summary Completed 12/24/2014 Visit Plan: Allergies - recommended pt to use allergy medication as prescribed. Pt has been counseled as to the appropriate use of the medication. Pt to call if allergy symptoms are not controlled with the medication. If using nasal spray, instructions as follows: Nasal spray- use twice daily, one spray per nostril twice daily, after 30 minutes, rinse out nose with saline spray.. Use opposite hand per nostril to spray in the nasal steroid allergy spray. RESTART FLONASE/NASONEX AND ANTI HISTAMINE DIRECTED KENALOG 80MG TODAY IN THE OFFICE 12/11/2014 Appointment: Roberta Isaacs WPtel: [phone] [phone] (10 min) Simple 12/11/2014 Patient Education: Patient Medication Summary Completed 12/11/2014 Referral: Naomie Buck Referral Completed 12/05/2014 Visit Plan: Welcome to Medicare Exam - today we discussed the patients past history, immunizations, preventative exams/evaluations - colonoscopy, fecal occult blood testing, routine labs for renal function, glucose, cholesterol, osteoporosis evaluations, cardiovascular testing and cancer screenings. We have also discussed mental health and the signs/symptoms of depression. The patient was advised of home safety evaluations and the need to make sure that as the aging process continues, we need to be aware of different ways to make the home a safer place to reside. The patient has also been counseled that exercise is necessary - and of utmost importance as we age to help decrease fall risk and to maintain independece in the home. 12/04/2014 Patient Education: Patient Medication Summary Completed 12/04/2014 Patient Education: Hypertension Completed 12/04/2014 Care Plan: Referral Order SNOMED-CT : [id number] Ordered 12/04/2014 Patient Education: Patient Medication Summary Completed 11/22/2014 Care Plan: Urine Culture Cancelled 11/14/2014 Patient Education: Patient Medication Summary Completed 11/12/2014 Appointment: Lab Draw 11/08/2014 Patient Education: Patient Medication Summary Completed 11/08/2014 Visit Plan: Culture urine 07/30/2014 Appointment: Lab Draw 07/30/2014 Patient Education: Patient Medication Summary Completed 07/30/2014 Visit Plan: Gkdsn-ushmopq-lezf lasix 40mg daily x 3 days with potassium 20mEq BID x 3 days, then resume daily PRN schedule. If symptoms do not improve, we will obtain a chest xray. Recommend screening mammogram 10/23/2013 Patient Education: Patient Medication Summary Completed 10/23/2013 Appointment: Roberta Isaacs WPtel: [phone] Follow up 04/24/2013 Visit Plan: Sinusitis-cough- Pt advised to increase fluids , vitamin C. Discussed natural and expected course of this diagnosis and need to alert me if symtpoms do not follow expected course, or if any worse. RX sent to patient's pharmacy. 04/14/2013 Patient Education: Patient Medication Summary Completed 04/14/2013 Patient Education: Patient Medication Summary Completed 04/12/2013 Patient Education: Hypertension Completed 04/12/2013 Visit Plan: Trigger Points - Injected trigger points today , pt given post-injection instructions, signs and symptoms for which to call the office. Pt to use heat to the muscles today, and take an anti-inflammatory today unless otherwise contraindicated by renal function or other disease process. 01/05/2013 Patient Education: Patient Medication Summary Completed 01/05/2013 Visit Plan: Sinusitis - Pt has acute infection - pain in face, maxillary region, Pt informed to use decongestant, RX given to patient, sinus rinses also recommended. Recommend take start on probiotic while on antibiotics. Call if symptoms do not show improvement. Kenalog injection today in the office. 04/11/2012 Patient Education: Patient Medication Summary Completed 04/11/2012 Patient Education: Patient Medication Summary Completed 03/23/2012 Patient Education: Patient Medication Summary Completed 03/09/2012 Visit Plan: Hypertension - well controlled - continue with current medications, continue with no added salt diet. Pt has been encouraged to exercise daily. The pt has been advised to call the office if there are any acute concerns about change in blood pressure readings at home. Edema - pt has water pills/lasix - to take, has been using PRN. Pt has lost 2 pounds today since taking the lasix. Insomnia - pt has been advised to use the xanax at bedtime as well as first thing in the morning. 03/07/2012 Appointment: [facility] Do [facility]el[phone] [facility] [place] Follow up 03/07/2012 Patient Education: Patient Medication Summary Completed 03/07/2012 Patient Education: Hypertension Completed 03/07/2012 Patient Education: Patient Medication Summary Completed 03/02/2012 Patient Education: Hypertension Completed 03/02/2012 Appointment: Lacy Do WPtel: [phone] [place] Injection 02/11/2012 Patient Education: Patient Medication Summary Completed 02/11/2012 Patient Education: Patient Medication Summary Completed 01/27/2012 Patient Education: Patient Medication Summary Completed 01/20/2012 Visit Plan: Hypertension - well controlled - continue with current medications, continue with no added salt diet. Pt has been encouraged to exercise daily. The pt has been advised to call the office if there are any acute concerns about change in blood pressure readings at home. Allergy shot given today. 01/13/2012 Appointment: Lacy Do WPtel: [facility] [place] Follow up 01/13/2012 Patient Education: Patient Medication Summary Completed 01/13/2012 Patient Education: High Blood Pressure: Essential Hypertension Completed 2011 Appointment: [facility]acy Do [facility]Ptel[facility] [phone] [facility] [place] Follow up 01/12/2012 Appointment: [facility] Do WPtel[facility] [phone] [facility] [place] Injection 01/06/2012 Patient Education: Patient Medication Summary Completed 01/06/2012 Visit Plan: Atrial Fibrillation - pt on chronic anticoagulation and is currently rate controlled. The pt is to have labs done as appropriate to monitor medication levels and is to report if they start to feel as if their heart rate is becoming uncontrolled. Pneumonia - Pt has been diagnosed with pneumonia by physical exam. Th pt is aware of the diagnosis and the need for acute treatment of this illness. Edema- pt lost 30# of fluid in the hospital, will have pt get a dose of I V lasix today when she gets her I V Vancomycin today. Pt will stay off of work until after the 10 of January and. a re-eval by this office due to continued illness and need for Continued antibiotic and need to heal and get her immune system healthy again prior to being re-exposed to the environment of the alf. 12/29/2011 Appointment: Lacy Do WPtel: [facility] [place] [phone] Hospital follow up 12/29/2011 Patient Education: Patient Medication Summary Completed 12/29/2011 Visit Plan: Pneumonia-chest pain-uncontrolled hypertension- Dr Do in to evaluate patient-patient directly admitted to the hospital for further treatment and monitoring. Plan to start the pneumonia protocol and check labs including cardiac enzymes. Exforge 10mg/160mg given in the office-- plan to increase to Exforge 10mg/320mg po daily. Will monitor blood pressure closely. 12/21/2011 Appointment: Roberta Isaacs WPtel: [address] [place], [place] [phone] [facility] 12/21/2011 Patient Education: Patient Medication Summary Completed 12/21/2011 Patient Education: High Blood Pressure: Essential Hypertension Completed 2011 Patient Education: Patient Medication Summary Completed 12/16/2011 Patient Education: Patient Medication Summary Completed 12/09/2011 Patient Education: Patient Medication Summary Completed 12/01/2011 Visit Plan: Cellulitis of lip lesion-Dr. Do in to evaluate patient-discussed natural and expected course of this diagnosis and to alert me if symptoms do not follow expected course, or if any worse. RX sent to patient's pharmacy. 11/25/2011 Appointment: Roberta Isaacs WPtel: [address] [place], [place] [phone] Work-in 11/25/2011 Patient Education: Patient Medication Summary Completed 11/25/2011 Patient Education: Patient Medication Summary Completed 11/25/2011 Patient Education: Patient Medication Summary Completed 11/18/2011 Visit Plan: Hypertension - well controlled - continue with current medications, continue with no added salt diet. Pt has been encouraged to exercise daily. The pt has been advised to call the office if there are any acute concerns about change in blood pressure readings at home. Obesity - chronic issue with this patient. The pt has been counseled about diet changes, calorie restriction, and need to exercise. Pt will RTC in one month for weight check. Influenza and pneumonia vaccines today in the office. 11/11/2011 Appointment: Roberta Isaacs WPtel: [phone] [phone] [place] Injection 11/11/2011 Patient Education: Patient Medication Summary Completed 11/11/2011 Patient Education: High Blood Pressure: Essential Hypertension Completed 2011 Appointment: [facility]acy Do WPtel[facility] [phone] [facility] [place] Injection 11/03/2011 Patient Education: Patient Medication Summary Completed 11/03/2011 Visit Plan: Allergies - Advised avoidance of allergens if possible, we discussed natural and expected course of this diagnosis and need to alert me if symtpoms do not follow expected course, or if any worse. Allergy injection today in the office Sinusitis - Pt has acute infection - pain in face , maxillary region, Pt informed to use decongestant, RX given to patient, sinus rinses also recommended. Recommend take start on probiotic while on antibiotics. Call if symptoms do not show improvement. Lip lesion-nonhealing, abnormal appearance and enlarging-cryotherapy of lesion today in the office 10/21/2011 Appointment: Roberta Isaacs WPtel: [phone] [phone] [place] Other 10/21/2011 Patient Education: Patient Medication Summary Completed 10/21/2011 Visit Plan: Allergies - Advised avoidance of allergens if possible, we discussed natural and expected course of this diagnosis and need to alert me if symtpoms do not follow expected course, or if any worse. Continue singulair. Weekly allergy injection today in the office. Edema - uncontrolled swelling. I have informed the patient of ways to naturally decrease the swelling in their lower legs - cut back on salt to 2 - 3 grams/day , the lower the sodium content of food, the healthier and less potential for swelling, however don't completely cut all sodium from diet. Pt was also counseled to elevate lower legs and/or use compression socks from toes to thighs. Obesity - chronic issue with this patient. The pt has been counseled about diet changes, calorie restriction, and need to exercise. Pt will RTC in one month for weight check. 10/14/2011 Appointment: Roberta Isaacs WPtel: [phone] Other 10/14/2011 Patient Education: Patient Medication Summary Completed 10/14/2011 Patient Education: Patient Medication Summary Completed 10/07/2011 Patient Education: Patient Medication Summary Completed 09/22/2011 Patient Education: Patient Medication Summary Completed 09/16/2011 Visit Plan: Abdominal [id number] recent CT chest showed partially calcified aneurysm of splenic artery-Dr Do in to evaluate patient-plan to consult Dr. Vernon for further recommendations. Hematuria- culture urine 09/02/2011 Appointment: Roberta Isaacs WPtel: [address] [place], [place] [phone] [place] Injection 09/02/2011 Appointment: Roberta Isaacs WPtel: [address] [place], [place] [phone] Other 09/02/2011 Patient Education: Patient Medication Summary Completed 09/02/2011 Patient Education: Patient Medication Summary Completed 09/02/2011 Visit Plan: PT GIVEN ROUTINE ALLERGY SHOTS FOR DESENSITIZATION 08/26/2011 Patient Education: Patient Medication Summary Completed 08/26/2011 Visit Plan: Kenalog injection 08/11/2011 Appointment: Roberta Isaacs WPtel: [phone] [place] Injection 08/11/2011 Patient Education: Patient Medication Summary Completed 08/11/2011 Visit Plan: Allergies - Advised avoidance of allergens if possible, we discussed natural and expected course of this diagnosis and need to alert me if symtpoms do not follow expected course, or if any worse. Increase singulair to daily-start jamie. Cough-obtain chest xray-history of pneumonia as well as exposure to asbestos Edema - uncontrolled swelling. I have informed the patient of ways to naturally decrease the swelling in their lower legs - cut back on salt to 2 - 3 grams/day, the lower the sodium content of food , the healthier and less potential for swelling, however don't completely cut all sodium from diet. Pt was also counseled to elevate lower legs and/or use compression socks from toes to thighs. 08/10/2011 Appointment: HiLacy WPtel: [address] [place], [place] [id number] Other 08/10/2011 Patient Education: Patient Medication Summary Completed 08/10/2011 Visit Plan: Chronic sinusitis- recommended pt to start on s netti pot and referral to Dr. Nieves. Throat congestion and sinus/nasal congestion - recommended that the patient increase the mucinex to twice daily. Monitor her symptoms. Tremors - improved - pt has stopped the lexapro and the singulair due to the tremors. Her tremors increased significantly after the start of both of those medications. If her tremors do not improve, will consider other eitiology. Pt has improved significantly from a pulmonary and cardiac standpoint. I have recommended return to work at 6 hours a day for the two weeks starting on 07/17/11. 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 07/14/2011 Visit Plan: Chronic sinusitis- recommended pt to start on s netti pot and referral to Dr. Nieves. Throat congestion and sinus/nasal congestion - recommended that the patient increase the mucinex to twice daily. Monitor her symptoms. Tremors - improved - pt has stopped the lexapro and the singulair due to the tremors. Her tremors increased significantly after the start of both of those medications. If her tremors do not improve, will consider other eitiology. Pt has improved significantly from a pulmonary and cardiac standpoint. I have recommended return to work at 6 hours a day for the two weeks starting on 07/17/11. 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 Obesity - pt lost 14# in the past month - partilly due to illness, but pt has been eating a more healthy diet and tried to be more activy after improving from her illness. 07/14/2011 Appointment: Lacy Do WPtel: [phone] [facility] Other 07/14/2011 Patient Education: Patient Medication Summary Completed 07/14/2011 Patient Education: Patient Medication Summary Completed 07/03/2011 Patient Education: High Blood Pressure: Essential Hypertension Completed 2011 Visit Plan: Cough and Dyspnea restarted once Pat Stopped her xopenex. She has been instructed to restart breathing treatments with xopenex. Start saline spray four times daily in the nose. Pt had been having hypotensive episodes, she had cut back on her medication, then had to restart her diovan, monitor her blood pressures at home, and she is to call if her systolic pressures are less than 90 or greater than 150. Rahel is still acutely ill and if hse were to restart work, I believe that she would end up back in the hospital in a week to ten days. I suspect that she has recurrence of mold in her office that that this is the reason for her yeast/mold based pneumonia. She has been instructed to let her superiors know that her office needs to be re -evaluated for mold. I have recommended that she remain off of work for another two weeks and I will re-evaluate her in two weeks. I may release her to work for 6 hour days at the end of the next two weeks, but she may warrent continued observation. I will have her try to give a sputum sample for repeat sputum testing in another week to ten days. 07/02/2011 Appointment: Lacy Do WPtel: [phone] [facility] [place] Other 07/02/2011 Patient Education: Patient Medication Summary Completed 07/02/2011 Patient Education: High Blood Pressure: Essential Hypertension Completed 2011 Visit Plan: Edema - pt has been advised to elevate legs to prevent dependent edema, compression has been recommended to help to naturally decrease peripheral edema. Diuretic use has been discussed and pt has been instructed in appropriate use of such medication as necessary to further attempt to reduce peripheral edema. Pt has been advised to cut back on the dose of thr lasix to one 40 mg pill in the morning.. Call if the swelling worsens. Call if the weight goes up more than 2 pounds in 3 days. call if your blood pressure is greater than 150 or less than 100. Hypotension - Pt is to cut back n her blood pressure medication as previously directed, call if pressure does not start to show improvement or her fatigue is too high. Thrush - nystatin swish and swallow. GERD - symptoms uncontrolled - continue with nexium and carafate liquid. 06/25/2011 Appointment: Lacy Do WPtel[facility] [facility] 06/25/2011 Patient Education: Patient Medication Summary Completed 06/25/2011 Patient Education: High Blood Pressure: Essential Hypertension Completed 2011 Visit Plan: Pneumonia/Hypoxemia-Dr. Do in to evaluate patient-plan to admit to the hospital for acute symptoms-plan to obtain labs and chest xray-plan to start IV abx and breathing treatments. 06/16/2011 Appointment: Roberta Isaacs WPtel: [address] [place], [place] [id number] Follow up 06/16/2011 Patient Education: Patient Medication Summary Completed 06/16/2011 Visit Plan: Sinusitis/Cough - Pt has acute infection - pain in face, maxillary region, Pt informed to use decongestant, RX given to patient, sinus rinses also recommended. Call if symptoms do not show improvement. Diarrhea-RX for flagyl and lactobacillus-call if symptoms worsen or do not improve. 06/15/2011 Appointment: Roberta Isaacs WPtel: [phone] Other 06/15/2011 Patient Education: Patient Medication Summary Completed 06/15/2011 Visit Plan: Pneumonia - Pt has been diagnosed with pneumonia by physical exam. A chest xray has been ordered as have antibiotics. The pt is aware of the diagnosis and the need for acute treatment of this illness. Pat was started on biaxin 250mg bid x 14 days, she is to be on probiotic bid and to start on samples of sybicort bid, call if symptoms are not improving. Fatigue - due to poor sleep, long hours at work and obesity. I have advised the pt to take off work tomorrow. She has been under an extreme amount of stress due to multiple issues with staff members at work (the details of which she did not dleve into, but stated that it had been an unbelievable amount of stress in a VERY short period of time). Obesity - pt has lost 6# in the past few weeks from stopping excessive fast food and soda intake. She has been encouraged to start a diet and exercise diary. Pt has again been given a script for labs - she is to come to the office or get her labs done at [facility] this week. She reports that her insurance company has not returned her phone calls despite her leaving multiple messages. I have obtained the phone number from the pt and will call tomorrow. 06/04/2011 Appointment: Lacy Do WPtel: [address] [place], [place] [id number] Other 06/04/2011 Patient Education: Patient Medication Summary Completed 06/04/2011 Visit Plan: 1800 CALORIE RESTRICTION EXERCISE BAND - use for 10 min on upper body and 5 min on lower body. Bring in the diet log from this past. month Continue with ibuprofen for the knee pain. HTN - controlled - no change in medications. 05/05/2011 Appointment: Lacy Do WPtel: [address] [place], [place] [id number] [place] Other 05/05/2011 Patient Education: Patient Medication Summary Completed 05/05/2011 Patient Education: High Blood Pressure: Essential Hypertension Completed 2011 Visit Plan: Hypertension - well controlled - continue with current medications, continue with no added salt diet. Pt has been encouraged to exercise daily. The pt has been advised to call the office if there are any acute concerns about change in blood pressure readings at home. Obesity - chronic issue with this patient. The pt has been counseled about diet changes, calorie restriction, and need to exercise. Pt will RTC in one month for weight check. Pt is to contact Dr. Cueto's office to see when she will be able to be fit into the schedule for lap band. Afib - rate controlled - pt to continue with pradaxa and increase back up to twice daily as had been initiall instructed. 04/07/2011 Appointment: Lacy Do WPtel: [phone] [facility] Other 04/07/2011 Patient Education: Patient Medication Summary Completed 04/07/2011 Patient Education: High Blood Pressure: Essential Hypertension Completed 2011 Visit Plan: Obesity - chronic issue with this patient. The pt has been counseled about diet changes, calorie restriction, and need to exercise. Pt will RTC in one month for weight check. Patient to continue with monthly appointment in preparation for lab band procedure by Dr. Cueto. Also patient to have interchange agent and psych consults in the next couple of months as well. Sinusitis - Pt has acute infection - pain in face, maxillary region, Pt informed to use decongestant, RX given to patient, sinus rinses also recommended. Call if symptoms do not show improvement. Kenalog injection today in the office. 03/17/2011 Appointment: Roberta Isaacs WPtel: [address] [phone] Other 03/17/2011 Patient Education: Patient Medication Summary Completed 03/17/2011 Patient Education: .[employer] Diet - Diabetic Completed 03/17/2011 Patient Education: .[employer] Diabetic meal planning guide Completed 03/17 Visit Plan: Well Adult - pt was counseled about diet, exercise, and encouraged to follow a heart healthy diet and increase acrtivity level. The patient was instructed to RTC yearly for well adult exams and PRN for acute illnesses. The pt was also instructed to have yearly labs for check of cholesterol, thyroid, chem panel, CBC, and renal functioning. Advised to schedule well woman examination asasp. Lesion-cryotherapy today in the office- discussed wound care and instructed patient to alert us if for any s/s of infection or other concerns. 01/21/2011 Appointment: Roberta Isaacs WPtel: [phone] [phone] Other 01/21/2011 Patient Education: Patient Medication Summary Completed 01/21/2011 Patient Education: Patient Medication Summary Completed 11/25/2010 Visit Plan: Hypertension - uncontrolled - The patient has been counseled to cut back on salt in diet for a no added salt diet, low fat diet, start an exercise program with low weight bearing exercises and higher aerobic activity for heart health. The patient is to check blood pressure readings as an outpatient and either fax, call, or email the readings to the office next week for practicioner to review. The pt is to call for acute concerns. URI-discussed natural and expected course of this diagnosis and to alert me if symptoms do not follow expected course, or if any worse. Continue levaquin and prednisone as prescrbed. Instructed patient to obtain chest xray at the hospital today due to cough, shorntess of breath. Samples of zyrtec provided and instructed on one tab daily. 11/24/2010 Appointment: Ferny Roberta WPtel: [phone] Other 11/24/2010 Patient Education: Patient Medication Summary Completed 11/24/2010 Visit Plan: Sinusitis - Pt has acute infection - pain in face, maxillary region, Pt informed to use decongestant, RX given to patient, sinus rinses also recommended. Call if symptoms do not show improvement.Pt advised to increase fluids, vitamin C. Discussed natural and expected course of this diagnosis and need to alert me if symtpoms do not follow expected course, or if any worse. RX sent to patient's pharmacy. Kenalog injection in the office today and instructed to start prednisone taper tomorrow morning. HTN- uncontrolled today in the office. Recommended patient monitor blood pressure as an outpatient and bring log to clinic on Wednesday for follow up. Call for chest pain, SOA, dizziness, or other concerns. Patient verbalized understanding. Doctor's eval of the patient - I personally evaluated the patient with the nurse practicioner. I have reviewed the patient's chart, I have reviewed the patient's past medical history, problem list, medication list, and personal history. I agree with the documentation by the nurse practicioner in the HPI, physical exam, and the assessment and plan. 11/20/2010 Visit Plan: Sinusitis - Pt has acute infection - pain in face, maxillary region, Pt informed to use decongestant, RX given to patient, sinus rinses also recommended. Call if symptoms do not show improvement.Pt advised to increase fluids, vitamin C. Discussed natural and expected course of this diagnosis and need to alert me if symtpoms do not follow expected course, or if any worse. RX sent to patient's pharmacy. Kenalog injection in the office today and instructed to start prednisone taper tomorrow morning. HTN- uncontrolled today in the office. Recommended patient monitor blood pressure as an outpatient and bring log to clinic on Wednesday for follow up. Call for chest pain, SOA, dizziness, or other concerns. Patient verbalized understanding. 11/20/2010 Appointment: Roberta Isaacs WPtel: [address] [phone] [place] Other 11/20/2010 Patient Education: Patient Medication Summary Completed 11/20/2010 Visit Plan: Sinusitis - Pt has acute infection - pain in face, maxillary region, Pt informed to use decongestant, RX given to patient, sinus rinses also recommended. Call if symptoms do not show improvement. Samples of nasonex and jamie provided as well. 11/06/2010 Appointment: Roberta Isaacs WPtel: [phone] [place] Other 11/06/2010 Patient Education: Patient Medication Summary Completed 11/06/2010 Referral: Naomie Buck Referral Appointment Requested Instructions Comment . Allergies - Advised avoidance of allergens if possible, we discussed natural and expected course of this diagnosis and need to alert me if symtpoms do not follow expected course, or if any worse. Continue singulair. Weekly allergy injection today in the office. Edema - uncontrolled swelling. I have informed the patient of ways to naturally decrease the swelling in their lower legs - cut back on salt to 2 - 3 grams/day, the lower the sodium content of food, the healthier and less potential for swelling, however don't completely cut all sodium from diet. Pt was also counseled to elevate lower legs and/or use compression socks from toes to thighs. Obesity - chronic issue with this patient. The pt has been counseled about diet changes, calorie restriction, and need to exercise. Pt will RTC in one month for weight check. . Pneumonia-chest pain-uncontrolled hypertension-Dr Do in to evaluate patient-patient directly admitted to the hospital for further treatment and monitoring. Plan to start the pneumonia protocol and check labs including cardiac enzymes. Exforge 10mg/160mg given in the office--plan to increase to Exforge 10mg/320mg po daily. Will monitor blood pressure closely. Start prednisone tomorrow but start the antibiotics TODAY. Also, start the lactobacillus today as well. Continue symbicort inhaler-let me know if the cough or shortness of breath worsens. . Sinusitis/Cough - Pt has acute infection - pain in face, maxillary region, Pt informed to use decongestant, RX given to patient, sinus rinses also recommended. Call if symptoms do not show improvement. Diarrhea-RX for flagyl and lactobacillus-call if symptoms worsen or do not improve. . Well Adult - pt was counseled about diet, exercise, and encouraged to follow a heart healthy diet and increase acrtivity level. The patient was instructed to RTC yearly for well adult exams and PRN for acute illnesses. The pt was also instructed to have yearly labs for check of cholesterol, thyroid, chem panel, CBC, and renal functioning. Advised to schedule well woman examination asasp. Lesion-cryotherapy today in the office-discussed wound care and instructed patient to alert us if for any s/s of infection or other concerns. . Sinusitis-cough- Pt advised to increase fluids, vitamin C. Discussed natural and expected course of this diagnosis and need to alert me if symtpoms do not follow expected course, or if any worse. RX sent to patient's pharmacy. . Edema - pt has been advised to elevate legs to prevent dependent edema, compression has been recommended to help to naturally decrease peripheral edema. Diuretic use has been discussed and pt has been instructed in appropriate use of such medication as necessary to further attempt to reduce peripheral edema. Pt has been advised to cut back on the dose of thr lasix to one 40 mg pill in the morning.. Call if the swelling worsens. Call if the weight goes up more than 2 pounds in 3 days. call if your blood pressure is greater than 150 or less than 100. Hypotension - Pt is to cut back n her blood pressure medication as previously directed, call if pressure does not start to show improvement or her fatigue is too high. Thrush - nystatin swish and swallow. GERD - symptoms uncontrolled - continue with nexium and carafate liquid. . Cellulitis of lip lesion-Dr. Do in to evaluate patient-discussed natural and expected course of this diagnosis and to alert me if symptoms do not follow expected course, or if any worse. RX sent to patient' s pharmacy. magnesium oxide - 400mg three times weekly. Hypertension - well controlled - continue with current medications, continue with no added salt diet. Pt has been encouraged to exercise daily. The pt has been advised to call the office if there are any acute concerns about change in blood pressure readings at home. Edema - pt has water pills/lasix - to take, has been using PRN. Pt has lost 2 pounds today since taking the lasix. Insomnia - pt has been advised to use the xanax at bedtime as well as first thing in the morning. Chest xray at the hospital . Hypertension - uncontrolled - The patient has been counseled to cut back on salt in diet for a no added salt diet, low fat diet, start an exercise program with low weight bearing exercises and higher aerobic activity for heart health. The patient is to check blood pressure readings as an outpatient and either fax , call, or email the readings to the office next week for practicioner to review. The pt is to call for acute concerns. URI-discussed natural and expected course of this diagnosis and to alert me if symptoms do not follow expected course, or if any worse. Continue levaquin and prednisone as prescrbed. Instructed patient to obtain chest xray at the hospital today due to cough, shorntess of breath. Samples of zyrtec provided and instructed on one tab daily. . Allergies - Advised avoidance of allergens if possible, we discussed natural and expected course of this diagnosis and need to alert me if symtpoms do not follow expected course, or if any worse. Allergy injection today in the office Sinusitis - Pt has acute infection - pain in face, maxillary region, Pt informed to use decongestant, RX given to patient, sinus rinses also recommended. Recommend take start on probiotic while on antibiotics. Call if symptoms do not show improvement. Lip lesion-nonhealing, abnormal appearance and enlarging-cryotherapy of lesion today in the office . Allergies - recommended pt to use allergy medication as prescribed. Pt has been counseled as to the appropriate use of the medication. Pt to call if allergy symptoms are not controlled with the medication. If using nasal spray, instructions as follows: Nasal spray- use twice daily, one spray per nostril twice daily, after 30 minutes, rinse out nose with saline spray.. Use opposite hand per nostril to spray in the nasal steroid allergy spray. RESTART FLONASE/NASONEX AND ANTI HISTAMINE DIRECTED KENALOG 80MG TODAY IN THE OFFICE . Sinusitis - Pt has acute infection - pain in face, maxillary region, Pt informed to use decongestant, RX given to patient, sinus rinses also recommended. Recommend take start on probiotic while on antibiotics. Call if symptoms do not show improvement. Kenalog injection today in the office. . Sinusitis - Pt has acute infection - pain in face, maxillary region, Pt informed to use decongestant, RX given to patient, sinus rinses also recommended. Call if symptoms do not show improvement.Pt advised to increase fluids, vitamin C. Discussed natural and expected course of this diagnosis and need to alert me if symtpoms do not follow expected course, or if any worse. RX sent to patient's pharmacy. Kenalog injection in the office today and instructed to start prednisone taper tomorrow morning. HTN-uncontrolled today in the office. Recommended patient monitor blood pressure as an outpatient and bring log to clinic on Wednesday for follow up. Call for chest pain, SOA, dizziness, or other concerns. Patient verbalized understanding. Doctor's eval of the patient - I personally evaluated the patient with the nurse practicioner. I have reviewed the patient's chart, I have reviewed the patient's past medical history, problem list, medication list, and personal history. I agree with the documentation by the nurse practicioner in the HPI, physical exam, and the assessment and plan. Start the prednisone taper tomorrow. Start the avelox today as soon as possible. Call with any side effects-rash, itching, shortness of breath. Return clinic Wednesday for follow up, sooner if any worse. . Sinusitis - Pt has acute infection - pain in face, maxillary region, Pt informed to use decongestant, RX given to patient, sinus rinses also recommended. Call if symptoms do not show improvement.Pt advised to increase fluids, vitamin C. Discussed natural and expected course of this diagnosis and need to alert me if symtpoms do not follow expected course, or if any worse. RX sent to patient's pharmacy. Kenalog injection in the office today and instructed to start prednisone taper tomorrow morning. HTN-uncontrolled today in the office. Recommended patient monitor blood pressure as an outpatient and bring log to clinic on Wednesday for follow up. Call for chest pain, SOA, dizziness, or other concerns. Patient verbalized understanding. REPEAT MAMMOGRAM RECOMMEND SHINGLES VACCINE VITAMIN D 50,000 UNITS WEEKLY RECHECK BMP IN 1 MONTH . Annual Medicare Exam - today we discussed the patients past history, immunizations, preventative exams/evaluations - colonoscopy, fecal occult blood testing, routine labs for renal function, glucose, cholesterol, osteoporosis evaluations, cardiovascular testing and cancer screenings. We have also discussed mental health and the signs/symptoms of depression. The patient was advised of home safety evaluations and the need to make sure that as the aging process continues, we need to be aware of different ways to make the home a safer place to reside. The patient has also been counseled that exercise is necessary - and of utmost importance as we age to help decrease fall risk and to maintain independece in the home. . Hypertension - well controlled - continue with current medications, continue with no added salt diet. Pt has been encouraged to exercise daily. The pt has been advised to call the office if there are any acute concerns about change in blood pressure readings at home. Obesity - chronic issue with this patient. The pt has been counseled about diet changes, calorie restriction, and need to exercise. Pt will RTC in one month for weight check. Influenza and pneumonia vaccines today in the office. . Cough and Dyspnea restarted once Pat Stopped her xopenex. She has been instructed to restart breathing treatments with xopenex. Start saline spray four times daily in the nose. Pt had been having hypotensive episodes, she had cut back on her medication, then had to restart her diovan, monitor her blood pressures at home, and she is to call if her systolic pressures are less than 90 or greater than 150. Rahel is still acutely ill and if hse were to restart work, I believe that she would end up back in the hospital in a week to ten days. I suspect that she has recurrence of mold in her office that that this is the reason for her yeast/ mold based pneumonia. She has been instructed to let her superiors know that her office needs to be re-evaluated for mold. I have recommended that she remain off of work for another two weeks and I will re-evaluate her in two weeks. I may release her to work for 6 hour days at the end of the next two weeks, but she may warrent continued observation. I will have her try to give a sputum sample for repeat sputum testing in another week to ten days. . Skin tear right forearm-dressing change today in the office-continue daily dressing changes until healed as instructed-call for any s /s of infection or other concerns. RECOMMEND SHINGLES VACCINE VITAMIN D 50,000 UNITS WEEKLY REPEAT VITAMIN D LEVEL IN [address] BUCK FOR CARDIAC FOLLOW UP CT ABDOMEN/PELVIS DX SPLENIC ARTERY ANEURYSM, LUQ AND RUQ PAIN, HISTORY LAP BAND . Welcome to Medicare Exam - today we discussed the patients past history, immunizations, preventative exams/evaluations - colonoscopy, fecal occult blood testing, routine labs for renal function, glucose, cholesterol, osteoporosis evaluations, cardiovascular testing and cancer screenings. We have also discussed mental health and the signs/symptoms of depression. The patient was advised of home safety evaluations and the need to make sure that as the aging process continues, we need to be aware of different ways to make the home a safer place to reside. The patient has also been counseled that exercise is necessary - and of utmost importance as we age to help decrease fall risk and to maintain independece in the home. Increase singulair to 1/2 tab daily. Start jamie OTC daily. Continue symbicort twice daily. Take an extra lasix and potassium at Noon for the next 5 days. Call if your swelling worsens or does not resolve. Nystatin swish and swallow 3ml each cheek four times daily. . Allergies - Advised avoidance of allergens if possible, we discussed natural and expected course of this diagnosis and need to alert me if symtpoms do not follow expected course, or if any worse. Increase singulair to daily-start jamie. Cough-obtain chest xray-history of pneumonia as well as exposure to asbestos Edema - uncontrolled swelling. I have informed the patient of ways to naturally decrease the swelling in their lower legs - cut back on salt to 2 - 3 grams/day, the lower the sodium content of food, the healthier and less potential for swelling, however don't completely cut all sodium from diet. Pt was also counseled to elevate lower legs and/or use compression socks from toes to thighs. Move mucinex to evening dosing. Chronic sinusitis- recommended pt to start on s netti pot and referral to Dr. Nieves. Throat congestion and sinus/nasal congestion - recommended that the patient increase the mucinex to twice daily. Monitor her symptoms. Tremors - improved - pt has stopped the lexapro and the singulair due to the tremors. Her tremors increased significantly after the start of both of those medications. If her tremors do not improve, will consider other eitiology. Pt has improved significantly from a pulmonary and cardiac standpoint. I have recommended return to work at 6 hours a day for the two weeks starting on . 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 . Chronic sinusitis- recommended pt to start on s netti pot and referral to Dr. Nieves. Throat congestion and sinus/nasal congestion - recommended that the patient increase the mucinex to twice daily. Monitor her symptoms. Tremors - improved - pt has stopped the lexapro and the singulair due to the tremors. Her tremors increased significantly after the start of both of those medications. If her tremors do not improve, will consider other eitiology. Pt has improved significantly from a pulmonary and cardiac standpoint. I have recommended return to work at 6 hours a day for the two weeks starting on . 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 Obesity - pt lost 14# in the past month - partilly due to illness, but pt has been eating a more healthy diet and tried to be more activy after improving from her illness. DX sinusitis - discussed expected course with the patient, pt advised to call for worsening symptoms, or lack of improvement on prescribed treatment course. . Sinusitis - Pt has acute infection - pain in face, maxillary region, Pt informed to use decongestant, RX given to patient, sinus rinses also recommended. Call if symptoms do not show improvement. Samples of nasonex and jamie provided as well. 50,000 units weekly x 12 weeks vitamin d3 5000 units daily repeat labs in 3 months-vitamin d, tsh, free t4, cbc, cmp . Hypertension - well controlled - continue with current medications, continue with no added salt diet. Pt has been encouraged to exercise daily. The pt has been advised to call the office if there are any acute concerns about change in blood pressure readings at home. Vitamin D deficiency-50,000 units weekly x 12 weeks vitamin d3 5000 units daily Hypothyroidism-patient currently off supplementation but TSH is increasing-plan to monitor and depending on symptoms, repeat labs in 2-3 months continue daily dressing change . Skin tear-dorsum of left hand-wound cleansed today in the office-medihoney applied and covered with non stick telfa and wrap with gauze. Will continue daily dressing changes. Monitor for s/s of infection. continue daily dressing change . Skin tear-dorsum of left hand-wound cleansed today in the office-medihoney applied and covered with non stick telfa and wrap with gauze. Will continue daily dressing changes. Monitor for s/s of infection. . Pneumonia - Pt has been diagnosed with pneumonia by physical exam. A chest xray has been ordered as have antibiotics. The pt is aware of the diagnosis and the need for acute treatment of this illness. Pat was started on biaxin 250mg bid x 14 days, she is to be on probiotic bid and to start on samples of sybicort bid, call if symptoms are not improving. Fatigue - due to poor sleep, long hours at work and obesity. I have advised the pt to take off work tomorrow. She has been under an extreme amount of stress due to multiple issues with staff members at work (the details of which she did not dleve into, but stated that it had been an unbelievable amount of stress in a VERY short period of time). Obesity - pt has lost 6# in the past few weeks from stopping excessive fast food and soda intake. She has been encouraged to start a diet and exercise diary. Pt has again been given a script for labs - she is to come to the office or get her labs done at [facility] this week. She reports that her insurance company has not returned her phone calls despite her leaving multiple messages. I have obtained the phone number from the pt and will call tomorrow. . Culture urine Restart pradaxa as instructed twice daily. Return tomorrow morning for fasting labs. . Hypertension - well controlled - continue with current medications, continue with no added salt diet. Pt has been encouraged to exercise daily. The pt has been advised to call the office if there are any acute concerns about change in blood pressure readings at home. Obesity - chronic issue with this patient. The pt has been counseled about diet changes, calorie restriction, and need to exercise. Pt will RTC in one month for weight check. Pt is to contact Dr. Cueto's office to see when she will be able to be fit into the schedule for lap band. Afib - rate controlled - pt to continue with pradaxa and increase back up to twice daily as had been initiall instructed. . Abdominal qubc-FTA-ygyj recent CT chest showed partially calcified aneurysm of splenic artery-Dr Do in to evaluate patient-plan to consult Dr. Vernon for further recommendations. Hematuria-culture urine . Atrial Fibrillation - pt on chronic anticoagulation and is currently rate controlled. The pt is to have labs done as appropriate to monitor medication levels and is to report if they start to feel as if their heart rate is becoming uncontrolled. Pneumonia - Pt has been diagnosed with pneumonia by physical exam. Th pt is aware of the diagnosis and the need for acute treatment of this illness. Edema- pt lost 30# of fluid in the hospital, will have pt get a dose of I V lasix today when she gets her I V Vancomycin today. Pt will stay off of work until after the 10 of January and. a re-eval by this office due to continued illness and need for Continued antibiotic and need to heal and get her immune system healthy again prior to being re-exposed to the environment of the alf. . Trigger Points - Injected trigger points today, pt given post-injection instructions, signs and symptoms for which to call the office. Pt to use heat to the muscles today, and take an anti-inflammatory today unless otherwise contraindicated by renal function or other disease process. . Hypertension - well controlled - continue with current medications, continue with no added salt diet. Pt has been encouraged to exercise daily. The pt has been advised to call the office if there are any acute concerns about change in blood pressure readings at home. Allergy shot given today. . Pneumonia/Hypoxemia-Dr. Do in to evaluate patient- plan to admit to the hospital for acute symptoms-plan to obtain labs and chest xray-plan to start IV abx and breathing treatments. . 1800 CALORIE RESTRICTION EXERCISE BAND - use for 10 min on upper body and 5 min on lower body. Bring in the diet log from this past. month Continue with ibuprofen for the knee pain. HTN - controlled - no change in medications. Return Wednesday morning for fasting labs. Biaxin prescription sent to [facility]-it is twice daily x 10 days. Take the full prescription. Recommend humidifier for your office. . Obesity - chronic issue with this patient. The pt has been counseled about diet changes, calorie restriction, and need to exercise. Pt will RTC in one month for weight check. Patient to continue with monthly appointment in preparation for lab band procedure by Dr. Cueto. Also patient to have interchange agent and psych consults in the next couple of months as well. Sinusitis - Pt has acute infection - pain in face, maxillary region, Pt informed to use decongestant, RX given to patient, sinus rinses also recommended. Call if symptoms do not show improvement. Kenalog injection today in the office. . [id number]-[id number] lasix 40mg daily x 3 days with potassium 20mEq BID x 3 days, then resume daily PRN schedule. If symptoms do not improve, we will obtain a chest xray. Recommend screening mammogram . PT GIVEN ROUTINE ALLERGY SHOTS FOR DESENSITIZATION . Kenalog injection
--- OUTSIDE RECORDS SUMMARY | 2017-12-29 12:21 | XMS REPORT | Continuity of Care Document ---
Author Author [facility] Organization [facility] Address Unknown Phone Unavailable Allergies Active Description Code Type Severity Reaction Onset Reported/Identified Relationship to Patient Clinical Status Yes morphine [id number] Drug Allergy Unknown N/A 08/20/2006 Yes Sulfa (Sulfonamide Antibiotics) [id number] Drug Allergy Unknown N/A 2006 Yes codeine [id number] Drug Allergy Unknown N/A 11/21/2006 Yes Penicillins [id number] Drug Allergy Unknown PT CAN TAKE KEF 11/21/2006 Yes Tetanus Vaccines Toxoid [id number] Drug Allergy Unknown N/A 11/21/2006 Yes Tetanus Vaccines and Toxoid [id number] Drug Allergy Unknown N/A 2006 Yes doxycycline [id number] Drug Allergy Moderate HIVES 10/24/2015 Yes levofloxacin [id number] Drug Allergy Unknown HIVES 10/24/2015 Yes apixaban [id number] Drug Allergy Severe HIVES 03/29/2016 Yes olmesartan [id number] Drug Allergy Severe HIVES 03/29/2016 Medications There is no data. Problems Date Dx Coded Attending Type Code Diagnosis Diagnosed By 08/08/2009 Ot 272.4 08/08/2009 Ot 278.00 08/08/2009 Ot 300.4 08/08/2009 Ot 401.9 08/08/2009 Ot 427.31 08/08/2009 Ot 429.9 08/08/2009 Ot 530.81 08/08/2009 Ot 535.50 08/08/2009 Ot 746.85 08/08/2009 Ot V45.81 08/08/2009 Ot V58.61 08/08/2009 Ot V85.4 06/22/2011 Ot 112.4 CANDIDIASIS OF LUNG 06/22/2011 Ot 244.9 HYPOTHYROIDISM NOS 06/22/2011 Ot 272.4 HYPERLIPIDEMIA NEC/NOS 06/22/2011 Ot 278.01 MORBID OBESITY 06/22/2011 Ot 401.9 HYPERTENSION NOS 06/22/2011 Ot 427.31 ATRIAL FIBRILLATION 06/22/2011 Ot 530.81 ESOPHAGEAL REFLUX 06/22/2011 Ot 790.29 OTHER ABNORMAL GLUCOSE 06/22/2011 Ot 799.02 HYPOXEMIA 06/22/2011 Ot V85.42 BODY MASS INDEX 45.0-49.9, ADULT 08/28/2011 Ot 455.3 EXT HEMORRHOID W/O COMPL 08/28/2011 Ot 530.11 REFLUX ESOPHAGITIS 08/28/2011 Ot 535.40 OTH SPECIFIED GASTRITIS,W/O MENTION OF H 08/28/2011 Ot 553.3 DIAPHRAGMATIC HERNIA 08/28/2011 Ot V76.51 SCREEN MAL NEOP-COLON 12/24/2011 Ot 244.9 HYPOTHYROIDISM NOS 12/24/2011 Ot 272.4 HYPERLIPIDEMIA NEC/NOS 12/24/2011 Ot 278.01 MORBID OBESITY 12/24/2011 Ot 401.9 HYPERTENSION NOS 12/24/2011 Ot 427.31 ATRIAL FIBRILLATION 12/24/2011 Ot 473.9 CHRONIC SINUSITIS NOS 12/24/2011 Ot 486 PNEUMONIA, ORGANISM NOS 12/24/2011 Ot 530.81 ESOPHAGEAL REFLUX 12/24/2011 Ot 782.3 EDEMA 12/24/2011 Ot 784.0 HEADACHE 12/24/2011 Ot V85.41 BODY MASS INDEX 40.0-44.9, ADULT 01/14/2012 Ot 486 PNEUMONIA, ORGANISM NOS 01/15/2012 Ot 278.01 MORBID OBESITY 01/15/2012 Ot 327.23 OBSTRUCTIVE SLEEP APNEA (ADULT) (PEDIATR 01/15/2012 Ot 401.9 HYPERTENSION NOS 01/15/2012 Ot V85.41 BODY MASS INDEX 40.0-44.9, ADULT 11/19/2014 Ot 276.51 11/19/2014 Ot 787.91 11/19/2014 Ot 786.05 11/19/2014 Ot 786.2 11/19/2014 Ot 788.63 11/19/2014 Ot 427.31 11/19/2014 Ot 786.09 11/19/2014 Ot 786.09 11/19/2014 Ot 786.2 11/19/2014 Ot 786.2 11/19/2014 Ot V72.84 11/19/2014 Ot 272.4 11/19/2014 Ot 401.9 11/19/2014 Ot 414.01 11/19/2014 Ot 427.31 11/19/2014 Ot 442.83 11/19/2014 Ot 530.81 11/19/2014 Ot V12.61 11/19/2014 Ot V13.02 11/19/2014 Ot V76.12 11/19/2014 Ot 278.00 11/19/2014 Ot 401.9 11/19/2014 Ot 427.31 11/19/2014 Ot V72.63 11/19/2014 Ot V72.81 11/19/2014 Ot V74.8 11/19/2014 Ot V85.41 11/26/2014 Ot 276.51 11/26/2014 Ot 787.91 11/26/2014 Ot 786.05 11/26/2014 Ot 786.2 11/26/2014 Ot 788.63 11/26/2014 Ot 427.31 11/26/2014 Ot 786.09 11/26/2014 Ot 786.09 11/26/2014 Ot 786.2 11/26/2014 Ot 786.2 11/26/2014 Ot V72.84 11/26/2014 Ot 272.4 11/26/2014 Ot 401.9 11/26/2014 Ot 414.01 11/26/2014 Ot 427.31 11/26/2014 Ot 442.83 11/26/2014 Ot 530.81 11/26/2014 Ot V12.61 11/26/2014 Ot V13.02 11/26/2014 Ot V76.12 11/26/2014 Ot 278.00 11/26/2014 Ot 401.9 11/26/2014 Ot 427.31 11/26/2014 Ot V72.63 11/26/2014 Ot V72.81 11/26/2014 Ot V74.8 11/26/2014 Ot V85.41 11/26/2014 MONIKA CHAIREZ MD Ot Z12.31 11/26/2014 MONIKA CHAIREZ MD Ot Z12.31 11/26/2014 MONIKA CHAIREZ MD Ot Z12.31 12/07/2014 Ot 276.51 12/07/2014 Ot 787.91 12/07/2014 Ot 786.05 12/07/2014 Ot 786.2 12/07/2014 Ot 788.63 12/07/2014 Ot 427.31 12/07/2014 Ot 786.09 12/07/2014 Ot 786.09 12/07/2014 Ot 786.2 12/07/2014 Ot 786.2 12/07/2014 Ot V72.84 12/07/2014 Ot 272.4 12/07/2014 Ot 401.9 12/07/2014 Ot 414.01 12/07/2014 Ot 427.31 12/07/2014 Ot 442.83 12/07/2014 Ot 530.81 12/07/2014 Ot V12.61 12/07/2014 Ot V13.02 12/07/2014 Ot V76.12 12/07/2014 Ot 278.00 12/07/2014 Ot 401.9 12/07/2014 Ot 427.31 12/07/2014 Ot V72.63 12/07/2014 Ot V72.81 12/07/2014 Ot V74.8 12/07/2014 Ot V85.41 12/07/2014 MIHAELA DUONG, MONIKA Payne Ot Z12.31 12/07/2014 MIHAELA DUONG, MONIKA Payne Ot R92.8 12/11/2014 LUCITA HERRERA Ot I72.8 12/11/2014 MONIKA CHAIREZ MD Ot Z12.31 12/18/2014 Ot 276.51 12/18/2014 Ot 787.91 12/18/2014 Ot 786.05 12/18/2014 Ot 786.2 12/18/2014 Ot 788.63 12/18/2014 Ot 427.31 12/18/2014 Ot 786.09 12/18/2014 Ot 786.09 12/18/2014 Ot 786.2 12/18/2014 Ot 786.2 12/18/2014 Ot V72.84 12/18/2014 Ot 272.4 12/18/2014 Ot 401.9 12/18/2014 Ot 414.01 12/18/2014 Ot 427.31 12/18/2014 Ot 442.83 12/18/2014 Ot 530.81 12/18/2014 Ot V12.61 12/18/2014 Ot V13.02 12/18/2014 Ot V76.12 12/18/2014 Ot 278.00 12/18/2014 Ot 401.9 12/18/2014 Ot 427.31 12/18/2014 Ot V72.63 12/18/2014 Ot V72.81 12/18/2014 Ot V74.8 12/18/2014 Ot V85.41 12/18/2014 MONIKA CHAIREZ MD Ot Z12.31 12/18/2014 MONIKA CHAIREZ MD Ot R92.8 12/18/2014 LUCITA HERRERA BREAKFAST MANAGER Ot I72.8 12/20/2014 MONIKA CHAIREZ MD Ot R92.8 12/28/2014 LUCITA HERRERA BREAKFAST MANAGER Ot I72.8 01/14/2015 ERUM DUONG FAC, ALI FACP CCDS Ot E78.4 01/14/2015 ERUM DUONG FAC, ALI FACP CCDS Ot I25.10 01/14/2015 ERUM DUONG FAC, ALI FACP CCDS Ot I48.0 01/14/2015 ERUM DUONG FAC, ALI FACP CCDS Ot I49.5 01/14/2015 ERUM DUONG FAC, ALI FACP CCDS Ot R06.09 01/14/2015 ERUM DUONG FAC, ALI FACP CCDS Ot R07.89 10/28/2015 MONIKA CHAIREZ MD, Ot E66.9 OBESITY, UNSPECIFIED 10/28/2015 MONIKA CHAIREZ MD, Ot F41.9 ANXIETY DISORDER, UNSPECIFIED 10/28/2015 MONIKA CHAIREZ MD, Ot I10 ESSENTIAL (PRIMARY) HYPERTENSION 10/28/2015 MONIKA CHAIREZ MD Ot I48.91 UNSPECIFIED ATRIAL FIBRILLATION 10/28/2015 MONIKA CHAIREZ MD, Ot J43.9 EMPHYSEMA, UNSPECIFIED 10/28/2015 MONIKA CHAIREZ MD Ot J98.11 ATELECTASIS 10/28/2015 MONIKA CHAIREZ MD Ot R06.02 SHORTNESS OF BREATH 10/28/2015 MONIKA CHAIREZ MD Ot T50.905A ADVERSE EFFECT OF UNSP DRUG/MEDS/BIOL MARIE 10/28/2015 MONIKA CHAIREZ MD, Ot T78.3XXA ANGIONEUROTIC EDEMA, INITIAL ENCOUNTER 10/28/2015 MONIKA CHAIREZ MD Ot Z68.41 BODY MASS INDEX (BMI) 40.0-44.9, ADULT 10/28/2015 MONIKA CHAIREZ MD, Ot E66.9 OBESITY, UNSPECIFIED 10/28/2015 MONIKA CHAIREZ MD, Ot F41.9 ANXIETY DISORDER, UNSPECIFIED 10/28/2015 MONIKA CHAIREZ MD, Ot I10 ESSENTIAL (PRIMARY) HYPERTENSION 10/28/2015 MONIKA CHAIREZ MD Ot I48.91 UNSPECIFIED ATRIAL FIBRILLATION 10/28/2015 MONIKA CHAIREZ MD Ot J43.9 EMPHYSEMA, UNSPECIFIED 10/28/2015 MONIKA CHAIREZ MD Ot J98.11 ATELECTASIS 10/28/2015 MONIKA CHAIREZ MD Ot R06.02 SHORTNESS OF BREATH 10/28/2015 MONIKA CHAIREZ MD Ot T44.5X5A ADVERSE EFFECT OF PREDOM BETA-ADRENOCPT 10/28/2015 MONIKA CHAIREZ MD Ot T45.515A ADVERSE EFFECT OF ANTICOAGULANTS, INITIA 10/28/2015 MONIKA CHAIREZ MD Ot T50.905A ADVERSE EFFECT OF UNSP DRUG/MEDS/BIOL MARIE 10/28/2015 MONIKA CHAIREZ MD Ot T78.3XXA ANGIONEUROTIC EDEMA, INITIAL ENCOUNTER 10/28/2015 MONIKA CHAIREZ MD Ot Z68.41 BODY MASS INDEX (BMI) 40.0-44.9, ADULT 12/12/2015 Ot 786.05 SHORTNESS OF BREATH 12/12/2015 Ot 786.2 COUGH 12/12/2015 Ot 788.63 URGENCY OF URINATION 12/12/2015 Ot 427.31 ATRIAL FIBRILLATION 12/12/2015 Ot 786.09 RESPIRATORY ABNORM NEC 12/12/2015 Ot 786.09 RESPIRATORY ABNORM NEC 12/12/2015 Ot 786.2 COUGH 12/12/2015 Ot 786.2 COUGH 12/12/2015 Ot V72.84 EXAM PRE- OPERATIVE NOS 12/12/2015 Ot 272.4 HYPERLIPIDEMIA NEC/NOS 12/12/2015 Ot 401.9 HYPERTENSION NOS 12/12/2015 Ot 414.01 CORONARY ATHEROSCLEROSIS OF [place] CORON 12/12/2015 Ot 427.31 ATRIAL FIBRILLATION 12/12/2015 Ot 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 12/12/2015 Ot 530.81 ESOPHAGEAL REFLUX 12/12/2015 Ot V12.61 PERSONAL HISTORY, PNEUMONIA (RECURRENT) 12/12/2015 Ot V13.02 PERSONAL HISTORY, URINARY (TRACT) INFECT 12/12/2015 Ot V76.12 OTH SCREEN MAMMO-MALIGN NEOPLASM OF [place] 12/12/2015 Ot 278.00 OBESITY, NOS 12/12/2015 Ot 401.9 HYPERTENSION NOS 12/12/2015 Ot 427.31 ATRIAL FIBRILLATION 12/12/2015 Ot V72.63 PRE- PROCEDURAL LABORATORY EXAMINATION 12/12/2015 Ot V72.81 EXAM-PRE- OPERATIVE CARDIOVASCULAR 12/12/2015 Ot V74.8 SCREEN- BACTERIAL DIS NEC 12/12/2015 Ot V85.41 BODY MASS INDEX 40.0-44.9, ADULT 12/12/2015 MONIKA CHAIREZ MD Ot Z12.31 ENCNTR SCREEN MAMMOGRAM FOR MALIGNANT NE 12/12/2015 MONIKA CHAIREZ MD Ot R92.8 OTH ABN AND INCONCLUSIVE FINDINGS ON DX 12/12/2015 LUCITA HERRERA BREAKFAST MANAGER Ot I72.8 ANEURYSM OF OTHER SPECIFIED ARTERIES 12/12/2015 ERUM DUONG FACC, ALI FACP CCDS Ot E78.4 OTHER HYPERLIPIDEMIA 12/12/2015 ERUM DUONG FACC, ALI FACP CCDS Ot I25.10 ATHSCL HEART DISEASE OF [place] CORONARY 12/12/2015 ERUM DUONG FACC, ALI FACP CCDS Ot I48.0 PAROXYSMAL ATRIAL FIBRILLATION 12/12/2015 ERUM DUONG FACC, ALI FACP CCDS Ot I49.5 SICK SINUS SYNDROME 12/12/2015 ERUM DUONG FACC, ALI FACP CCDS Ot R06.09 OTHER FORMS OF DYSPNEA 12/12/2015 ERUM DUONG FACC, ALI FACP CCDS Ot R07.89 OTHER CHEST PAIN 12/12/2015 LUCITA HERRERA BREAKFAST MANAGER Ot Z12.31 ENCNTR SCREEN MAMMOGRAM FOR MALIGNANT NE 12/12/2015 LUCITA HERRERA BREAKFAST MANAGER Ot Z12.31 ENCNTR SCREEN MAMMOGRAM FOR MALIGNANT NE 12/13/2015 LUCITA HERRERA BREAKFAST MANAGER Ot Z12.31 ENCNTR SCREEN MAMMOGRAM FOR MALIGNANT NE 12/24/2015 LUCITA HERRERA BREAKFAST MANAGER Ot Z12.31 ENCNTR SCREEN MAMMOGRAM FOR MALIGNANT NE 01/28/2016 JOSE LUIS MONTES APRN Ot G47.33 OBSTRUCTIVE SLEEP APNEA (ADULT) (PEDIATR 01/29/2016 JOSE LUIS MONTES APRN Ot G47.33 OBSTRUCTIVE SLEEP APNEA (ADULT) (PEDIATR 01/29/2016 JOSE LUIS MONTES APRN Ot G47.33 OBSTRUCTIVE SLEEP APNEA (ADULT) (PEDIATR 03/29/2016 DALTON SALGUERO MD Ot I10 ESSENTIAL (PRIMARY) HYPERTENSION 03/29/2016 DALTON SALGUERO MD Ot J06.9 ACUTE UPPER RESPIRATORY INFECTION, UNSPE 03/29/2016 DALTON SALGUERO MD Ot R05 COUGH 03/29/2016 DALTON SALGUERO MD Ot Z79.899 OTHER CORRECTION (CURRENT) DRUG THERAPY 03/30/2016 DALTON SALGUERO MD Ot I10 ESSENTIAL (PRIMARY) HYPERTENSION 03/30/2016 DALTON SALGUERO MD Ot J06.9 ACUTE UPPER RESPIRATORY INFECTION, UNSPE 03/30/2016 DALTON SALGUERO MD Ot R05 COUGH 03/30/2016 DALTON SALGUERO MD Ot Z79.899 OTHER FAMILY SERVICE COUNSELOR (CURRENT) DRUG THERAPY 09/11/2016 POPPY MAGALLANES MD P Ot R43.8 OTHER DISTURBANCES OF SMELL AND TASTE 09/15/2016 POPPY MAGALLANES MD Ot R43.8 OTHER DISTURBANCES OF SMELL AND TASTE 09/15/2016 POPPY MAGALLANES MD Ot R43.8 OTHER DISTURBANCES OF SMELL AND TASTE 09/15/2016 POPPY MAGALLANES MD Ot R43.8 OTHER DISTURBANCES OF SMELL AND TASTE 10/09/2016 POPPY MAGALLANES MD P Ot R43.8 OTHER DISTURBANCES OF SMELL AND TASTE 12/17/2016 MONIKA CHAIREZ MD Ot B96.20 UNSP ESCHERICHIA COLI THE CAUSE OF DI 12/17/2016 MONIKA CHAIREZ MD, Ot N39.0 URINARY TRACT INFECTION, SITE NOT SPECIF 01/14/2017 MONIKA CHAIREZ MD, Ot D64.9 ANEMIA, UNSPECIFIED 01/14/2017 MONIKA CHAIREZ MD, Ot I95.9 HYPOTENSION, UNSPECIFIED 01/14/2017 MONIKA CHAIREZ MD, Ot R11.2 NAUSEA WITH VOMITING, UNSPECIFIED 02/02/2017 MONIKA CHAIREZ MD, Ot D64.9 ANEMIA, UNSPECIFIED 02/02/2017 MONIKA CHAIREZ MD, Ot I95.9 HYPOTENSION, UNSPECIFIED 02/02/2017 MONIKA CHAIREZ MD, Ot R11.2 NAUSEA WITH VOMITING, UNSPECIFIED Procedures Code Description Performed By Performed On 37.22 08/21/2006 88.42 08/21/2006 88.53 08/21/2006 88.56 08/21/2006 93.93 08/21/2006 96.04 08/21/2006 99.62 08/21/2006 Results Test Result Range Complete blood count (CBC) with automated white blood cell (WBC) differential - 10/24/15 15:24 Blood leukocytes automated count (number/volume) 10.2 10*3/uL 4.3-11.0 Blood erythrocytes automated count (number/volume) 4.41 10*6/uL 4.35-5.85 Venous blood hemoglobin measurement (mass/volume) 13.8 g/dL 11.5-16.0 Blood hematocrit (volume fraction) 41 % 35-52 Automated erythrocyte mean corpuscular volume 93 [foz_us] 80-99 Automated erythrocyte mean corpuscular hemoglobin (mass per erythrocyte) 31 pg 25-34 Automated erythrocyte mean corpuscular hemoglobin concentration measurement ( mass/volume) 34 g/dL 32-36 Automated erythrocyte distribution width ratio 12.3 % 10.0-14.5 Automated blood platelet count (count/volume) 203 10*3/uL 130-400 Automated blood platelet mean volume measurement 11.8 [foz_us] 7.4-10.4 Automated blood neutrophils/100 leukocytes 68 % 42-75 Automated blood lymphocytes/100 leukocytes 22 % 12-44 Blood monocytes/100 leukocytes 8 % 0-12 Automated blood eosinophils/100 leukocytes 1 % 0-10 Automated blood basophils/100 leukocytes 1 % 0-10 Blood neutrophils automated count (number/volume) 7.0 10*3 1.8-7.8 Blood lymphocytes automated count (number/volume) 2.2 10*3 1.0-4.0 Blood monocytes automated count (number/volume) 0.9 10*3 0.0-1.0 Automated eosinophil count 0.1 10*3/uL 0.0-0.3 Automated blood basophil count (count/volume) 0.1 10*3/uL 0.0-0.1 Comprehensive metabolic panel - 10/24/15 15:24 Serum or plasma sodium measurement (moles/volume) 139 mmol/L 135-145 Serum or plasma potassium measurement (moles/volume) 3.9 mmol/L 3.6-5.0 Serum or plasma chloride measurement (moles/volume) 108 mmol/L 98-107 Carbon dioxide 24 mmol/L 21-32 Serum or plasma anion gap determination (moles/volume) 7 mmol/L 5-14 Serum or plasma urea nitrogen measurement (mass/volume) 11 mg/dL 7-18 Serum or plasma creatinine measurement (mass/volume) 0.89 mg/dL 0.60-1.30 Serum or plasma urea nitrogen/creatinine mass ratio 12 NRG Serum or plasma creatinine measurement with calculation of estimated glomerular filtration rate > NRG Serum or plasma glucose measurement (mass/volume) 90 mg/dL 70-105 Serum or plasma calcium measurement (mass/volume) 9.2 mg/dL 8.5-10.1 Serum or plasma total bilirubin measurement (mass/volume) 0.4 mg/dL 0.1-1.0 Serum or plasma alkaline phosphatase measurement (enzymatic activity/volume) 91 U/L 40-136 Serum or plasma aspartate aminotransferase measurement (enzymatic activity/ volume) 17 U/L 5-34 Serum or plasma alanine aminotransferase measurement (enzymatic activity/volume ) 18 U/L 0-55 Serum or plasma protein measurement (mass/volume) 6.6 g/dL 6.4-8.2 Serum or plasma albumin measurement (mass/volume) 3.7 g/dL 3.2-4.5 Complete urinalysis with reflex to culture - 10/24/15 17:07 Urine color determination YELLOW NRG Urine clarity determination CLEAR NRG Urine pH measurement by test strip 8 5-9 Specific gravity of urine by test strip 1.010 1.016- 1.022 Urine protein assay by test strip, semi-quantitative NEGATIVE NEGATIVE Urine glucose detection by automated test strip NEGATIVE NEGATIVE Erythrocytes detection in urine sediment by light microscopy NEGATIVE NEGATIVE Urine ketones detection by automated test strip NEGATIVE NEGATIVE Urine nitrite detection by test strip NEGATIVE NEGATIVE Urine total bilirubin detection by test strip NEGATIVE NEGATIVE Urine urobilinogen measurement by automated test strip (mass/volume) NORMAL NORMAL Urine leukocyte esterase detection by dipstick 2+ NEGATIVE Automated urine sediment erythrocyte count by microscopy (number/high power field) NONE NRG Automated urine sediment leukocyte count by microscopy (number/high power field ) [HPF] NRG Bacteria detection in urine sediment by light microscopy TRACE NRG Squamous epithelial cells detection in urine sediment by light microscopy 0-2 NRG Crystals detection in urine sediment by light microscopy NONE NRG Casts detection in urine sediment by light microscopy NONE NRG Mucus detection in urine sediment by light microscopy NEGATIVE NRG Complete urinalysis with reflex to culture YES NRG Bacterial urine culture - 10/24/15 17:07 URINE CULTURE RESULTS <10,000/ML NRG Capillary blood glucose measurement by glucometer (mass/volume) - 09/08/16 21: 54 Capillary blood glucose measurement by glucometer (mass/volume) 141 mg/dL 70-110 Complete blood count (CBC) with automated white blood cell (WBC) differential - 03/29/16 08:05 Blood leukocytes automated count (number/volume) 11.0 10*3/uL 4.3-11.0 Blood erythrocytes automated count (number/volume) 4.76 10*6/uL 4.35-5.85 Venous blood hemoglobin measurement (mass/volume) 14.5 g/dL 11.5-16.0 Blood hematocrit (volume fraction) 43 % 35-52 Automated erythrocyte mean corpuscular volume 90 [foz_us] 80-99 Automated erythrocyte mean corpuscular hemoglobin (mass per erythrocyte) 31 pg 25-34 Automated erythrocyte mean corpuscular hemoglobin concentration measurement ( mass/volume) 34 g/dL 32-36 Automated erythrocyte distribution width ratio 12.7 % 10.0-14.5 Automated blood platelet count (count/volume) 199 10*3/uL 130-400 Automated blood platelet mean volume measurement 11.7 [foz_us] 7.4-10.4 Automated blood neutrophils/100 leukocytes 77 % 42-75 Automated blood lymphocytes/100 leukocytes 14 % 12-44 Blood monocytes/100 leukocytes 8 % 0-12 Automated blood eosinophils/100 leukocytes 1 % 0-10 Automated blood basophils/100 leukocytes 1 % 0-10 Blood neutrophils automated count (number/volume) 8.4 10*3 1.8-7.8 Blood lymphocytes automated count (number/volume) 1.5 10*3 1.0-4.0 Blood monocytes automated count (number/volume) 0.9 10*3 0.0-1.0 Automated eosinophil count 0.1 10*3/uL 0.0-0.3 Automated blood basophil count (count/volume) 0.1 10*3/uL 0.0-0.1 Comprehensive metabolic panel - 03/29/16 08:05 Serum or plasma sodium measurement (moles/volume) 139 mmol/L 135-145 Serum or plasma potassium measurement (moles/volume) 3.3 mmol/L 3.6-5.0 Serum or plasma chloride measurement (moles/volume) 102 mmol/L 98-107 Carbon dioxide 25 mmol/L 21-32 Serum or plasma anion gap determination (moles/volume) 12 mmol/L 5-14 Serum or plasma urea nitrogen measurement (mass/volume) 14 mg/dL 7-18 Serum or plasma creatinine measurement (mass/volume) 1.04 mg/dL 0.60-1.30 Serum or plasma urea nitrogen/creatinine mass ratio 13 NRG Serum or plasma creatinine measurement with calculation of estimated glomerular filtration rate 53 [facility] Serum or plasma glucose measurement (mass/volume) 119 mg/dL 70-105 Serum or plasma calcium measurement (mass/volume) 9.8 mg/dL 8.5-10.1 Serum or plasma total bilirubin measurement (mass/volume) 0.7 mg/dL 0.1-1.0 Serum or plasma alkaline phosphatase measurement (enzymatic activity/volume) 105 U/L 40-136 Serum or plasma aspartate aminotransferase measurement (enzymatic activity/ volume) 15 U/L 5-34 Serum or plasma alanine aminotransferase measurement (enzymatic activity/volume ) 15 U/L 0-55 Serum or plasma protein measurement (mass/volume) 6.8 g/dL 6.4-8.2 Serum or plasma albumin measurement (mass/volume) 3.7 g/dL 3.2-4.5 Influenza virus A and B antigen detection - 03/29/16 08:40 FLU RESULT NEGATIVE FOR INFLUENZA A AND B ANTIGENS BY [facility] [id number] - 09/10/16 08:21 Serum or plasma urea nitrogen measurement (mass/volume) 16 mg/dL 7-18 Serum or plasma creatinine measurement (mass/volume) 0.95 mg/dL 0.60-1.30 Serum or plasma urea nitrogen/creatinine mass ratio 17 NRG Serum or plasma creatinine measurement with calculation of estimated glomerular filtration rate 59 [facility] Automated blood complete blood count (hemogram) panel - 01/12/17 11:50 Blood leukocytes automated count (number/volume) 8.2 10*3/uL 4.3-11.0 Blood erythrocytes automated count (number/volume) 4.56 10*6/uL 4.35-5.85 Venous blood hemoglobin measurement (mass/volume) 13.9 g/dL 11.5-16.0 Blood hematocrit (volume fraction) 41 % 35-52 Automated erythrocyte mean corpuscular volume 90 [foz_us] 80-99 Automated erythrocyte mean corpuscular hemoglobin (mass per erythrocyte) 31 pg 25-34 Automated erythrocyte mean corpuscular hemoglobin concentration measurement ( mass/volume) 34 g/dL 32-36 Automated erythrocyte distribution width ratio 12.9 % 10.0-14.5 Automated blood platelet count (count/volume) 189 10*3/uL 130-400 Automated blood platelet mean volume measurement 12.3 [foz_us] 7.4-10.4 Comprehensive metabolic panel - 01/12/17 11:50 Serum or plasma sodium measurement (moles/volume) 138 mmol/L 135-145 Serum or plasma potassium measurement (moles/volume) 2.8 mmol/L 3.6-5.0 Serum or plasma chloride measurement (moles/volume) 99 mmol/L 98-107 Carbon dioxide 27 mmol/L 21-32 Serum or plasma anion gap determination (moles/volume) 12 mmol/L 5-14 Serum or plasma urea nitrogen measurement (mass/volume) 10 mg/dL 7-18 Serum or plasma creatinine measurement (mass/volume) 0.95 mg/dL 0.60-1.30 Serum or plasma urea nitrogen/creatinine mass ratio 11 NRG Serum or plasma creatinine measurement with calculation of estimated glomerular filtration rate 59 NRG Serum or plasma glucose measurement (mass/volume) 132 mg/dL 70-105 Serum or plasma calcium measurement (mass/volume) 9.9 mg/dL 8.5-10.1 Serum or plasma total bilirubin measurement (mass/volume) 0.9 mg/dL 0.1-1.0 Serum or plasma alkaline phosphatase measurement (enzymatic activity/volume) 67 U/L 40-136 Serum or plasma aspartate aminotransferase measurement (enzymatic activity/ volume) 26 U/L 5-34 Serum or plasma alanine aminotransferase measurement (enzymatic activity/volume ) 29 U/L 0-55 Serum or plasma protein measurement (mass/volume) 6.9 g/dL 6.4-8.2 Serum or plasma albumin measurement (mass/volume) 3.8 g/dL 3.2-4.5 Serum or plasma phosphate measurement (mass/volume) - 01/12/17 11:50 Serum or plasma phosphate measurement (mass/volume) 1.7 mg/dL 2.3-4.7 Magnesium - 01/12/17 11:50 Magnesium 1.8 mg/dL 1.8-2.4 Encounters ACCT No. Visit Date/Time Discharge Status Pt. Type Provider Facility Loc./Unit Complaint [id number] 03/30/2017 09:43:00 03/30/2017 23:59:59 CLS Preadmit MAURY SAMPSON APRN [facility] RAD SCREENING [id number] 01/12/2017 11:26:00 01/12/2017 23:59:59 CLS Outpatient MONIKA CHAIREZ MD [facility] ANEMIA,NAUSEA, HYPOTENSION [id number] 11/23/2016 13:29:00 11/23/2016 23:59:59 CLS Outpatient MONIKA CHAIREZ MD [facility] ECOLI,UTI [id number] 09/10/2016 08:07:00 09/10/2016 23:59:59 CLS Outpatient POPPY MAGALLANES MD [facility] RAD LOSS OF SMELL/TASTE [id number] 03/29/2016 07:50:00 03/29/2016 09:45:00 DIS Emergency NOEMY DUONG, DALTON Canas [facility] ER SOA [id number] 01/28/2016 21:00:00 01/29/2016 06:25:00 DIS Outpatient JOSE LUIS MONTES APRN [facility] SLEEP OBSTRUCTIVE SLEEP APNEA [id number] 12/12/2015 11:02:00 12/12/2015 23:59:59 CLS Outpatient LUCITA HERRERA [facility] RAD SCREENING [id number] 10/24/2015 14:48:00 10/28/2015 19:10:00 DIS Inpatient MONIKA CHAIREZ MD [facility] 4TH ALLERGIC REACTION [id number] 12/18/2014 07:22:00 12/18/2014 23:59:59 CLS Outpatient ERUM DUONG FACC, JUVE FACAnette CCDS [facility] CARD CHEST DISCOMFORT,CAD,HLD,FELIPE [id number] 12/07/2014 11:16:00 12/07/2014 23:59:59 CLS Outpatient LUCITA HERRERA [facility] RAD HX OF LAP BAND,LUQ/ RUQ PAIN,SPLENIC ARTERY ANEURYS [id number] 11/26/2014 12:48:00 11/26/2014 23:59:59 CLS Outpatient MONIKA CHAIREZ MD [facility] RAD ABNORMAL MAMMOGRAM [id number] 11/19/2014 14:37:00 11/19/2014 23:59:59 CLS Outpatient MIHAELA DUONG, MONIKA Payne [facility] RAD SCREENING [id number] 11/19/2014 14:37:00 Document Registration [id number] 11/19/2014 14:37:00 Document Registration [id number] 01/14/2012 08:52:00 Document Registration [id number] 01/13/2012 13:55:00 Document Registration [id number] 01/06/2012 09:29:00 Document Registration [id number] 12/29/2011 19:00:00 Document Registration [id number] 12/21/2011 12:04:00 Document Registration [id number] 09/03/2011 09:56:00 Document Registration [id number] 08/28/2011 09:36:00 Document Registration [id number] 08/27/2011 07:29:00 Document Registration [id number] 08/10/2011 17:20:00 Document Registration [id number] 07/08/2011 12:58:00 Document Registration [id number] 06/16/2011 15:53:00 Document Registration [id number] 12/24/2010 08:42:00 Document Registration [id number] 11/24/2010 19:41:00 Document Registration [id number] 11/24/2010 09:27:00 Document Registration [id number] 03/24/2010 17:03:00 Document Registration [id number] 08/06/2009 14:31:00 Document Registration [id number] 11/26/2014 14:04:20 ACT Document Registration
== END 2017-12-29 11:28 | disposition home or self-care (01) ==
LOC: EDUNIT# 09:43 → ER 09:44
DX: S16.1XXA Strain of muscle, fascia and tendon at neck level, initial encounter (principal); N39.0 Urinary tract infection, site not specified; F41.0 Panic disorder [episodic paroxysmal anxiety]; I10 Essential (primary) hypertension; I48.91 Unspecified atrial fibrillation; Z87.448 Personal history of other diseases of urinary system; Z82.49 Family history of ischemic heart disease and other diseases of the circulatory system; Z79.01 Long term (current) use of anticoagulants; Z96.651 Presence of right artificial knee joint; Z88.1 Allergy status to other antibiotic agents; Z88.0 Allergy status to penicillin; Z98.890 Other specified postprocedural states; Z88.7 Allergy status to serum and vaccine; Z88.5 Allergy status to narcotic agent; Z88.8 Allergy status to other drugs, medicaments and biological substances; Z90.710 Acquired absence of both cervix and uterus; Z87.01 Personal history of pneumonia (recurrent); V49.50XA Passenger injured in collision with unspecified motor vehicles in traffic accident, initial encounter
CPT/HCPCS: 36415; 70450; 71045; 72125; 80048; 80076; 80320; 81000; 84703; 85027; 87077; 87088; 87186; 93041

== ENCOUNTER → 2018-03-21 | Outpatient (CLI) | payer MEDICARE, OTHER ==
[~2018-03-21] MED LIST changes: +CYCL10TA9 PO; +NITR100C PO; +TRAM50TA2 PO
--- NOTE | 2018-03-21 09:34 | Diagnostic Imaging Report ---
INDICATION: Left chest injury with pain PA and lateral views of the chest are obtained with comparison made to the study of 12/29/2017. Heart size and pulmonary vascularity are within normal limits. There is no evidence of pneumothorax or consolidation. Probable calcified granuloma seen within the right midlung. Surgical changes are noted in mediastinum. IMPRESSION: No acute abnormalities identified. Dictated by: Dictated on workstation # [id number]
== END ==
LOC: RAD 08:59
PROVIDERS: ATTEND Nurse Practitioner Family
DX: R07.89 Other chest pain (principal); W19.XXXA Unspecified fall, initial encounter
CPT/HCPCS: 71046

== ENCOUNTER 2018-05-03 13:17 | Outpatient (CLI) | payer MEDICARE, OTHER ==
[~2018-05-03] VITALS: Ht 162.6 cm; Wt 119.7 kg
[2018-05-04] MEDS ORDERED: RIVA20TA PO (11:08)
[2018-05-04] MEDS ORDERED: POTA-51 PO (11:08)
[2018-05-04] MEDS ORDERED: METO-333 PO (11:08)
[2018-05-04] MEDS ORDERED: ALPR0.25 PO (11:08)
== END 2018-05-04 11:10 | disposition home or self-care (01) ==
LOC: PREOP 13:17
PROVIDERS: ATTEND Specialist
DX: Z01.818 Encounter for other preprocedural examination (principal)

== ENCOUNTER 2018-05-06 08:54 | Day surgery (SDC) | payer MEDICARE, OTHER ==
[~2018-05-06] VITALS: Ht 162.6 cm; Wt 119.7 kg
[~2018-05-06 08:54] MED LIST changes: +ALPR0.25 PO; +POTA-51 PO
[2018-05-06 09:00] VITALS: BP 178/78
[2018-05-06] MEDS ORDERED: MOXIFLOXACIN OPHTH SOLN 5 MG/ML 0.3 ML SYRINGE OP ONE (09:15)
[2018-05-06] MEDS ORDERED: TIMOLOL MALEATE 0.5% 5 ML (TIMOPTIC) BTL OU PRN (09:15)
[2018-05-06] MEDS ORDERED: POVIDONE (BETADINE) OPHTH SOLN 5% 30 ML OP ONE (09:15)
[2018-05-06] MEDS ORDERED: LIDOCAINE PF 1% 2 ML AMP IR PRN (09:15)
[2018-05-06] MEDS: TETRACAINE 0.5% OPHTH SOLN 4 ML BTL (SINGLE DOSE ONLY) OU PRN ×4 (09:25→10:04)
[2018-05-06] MEDS: CYCLOPENTOLATE 1% (CYCLOGYL) 2 ML DROPS OP SCH ×3 (09:40→10:04)
[2018-05-06] MEDS: PHENYLEPHRINE 10% OPHTH (NEO-SYN) 5 ML BTL OU SCH ×3 (09:40→10:04)
[2018-05-06] MEDS ORDERED: MIDAZOLAM 2 MG/2 ML (VERSED) VIAL ONE (10:14)
--- NOTE | 2018-05-06 10:39 | Ophthalmologist Pre-Op Note ---
Pre-Operative Progress Note H&P Reviewed The H&P was reviewed, patient examined and no changes noted. Date H&P Reviewed: May 06, 2018 Time H&P Reviewed: 10:38 Pre-Op Dx Secondary Cataract, Right Eye SAMMY BELTRAN MD May 06, 2018 10:39
[2018-05-06] MEDS ORDERED: diphenhydrAMINE 50 MG/ML INJ (BENADRYL) ONE (10:48)
--- NOTE | 2018-05-06 11:14 | Ophthalmology Operative Report ---
Cataract removal/placement IOL PREOPERATIVE DIAGNOSIS: Cataract Right Eye POSTOPERATIVE DIAGNOSIS: Cataract Right Eye PROCEDURE: Cataract removal and placement of posterior chamber implant, right eye SURGEON: Alexsander Beltran ANESTHESIA: Topical with sedation COMPLICATIONS: None ESTIMATED BLOOD LOSS: Minimal DESCRIPTION OF PROCEDURE: After proper informed consent was obtained, the patient, a 67 female, was taken to the Operating Room and the right eye was anesthetized with tetracaine. The right eye was then prepped and draped in the usual manner. A wire lid speculum was placed. A paracentesis was made at the left hand position. Preservative free lidocaine was injected into the anterior chamber followed by viscoelastic. A clear corneal incision was made in the temporal position. A capsulorrhexis was preformed and the central nuclear and cortical material were removed. The posterior capsule was polished and Vishal [id number] 29.0 IOL was placed into the capsular bag. The residual viscoelastic was aspirated and balanced saline solution was injected into the anterior chamber. Moxifloxacin was injected into the anterior chamber. The wound was checked and found to be water tight. The patient tolerated the procedure well without complications. ALEXSANDER BELTRAN MD May 06, 2018 11:14
--- NOTE | 2018-05-06 11:18 | Anesthesia-General Post-Op ---
MAC Patient Condition Mental Status/LOC: Same as Preop Cardiovascular: Satisfactory Nausea/Vomiting: Absent Respiratory: Satisfactory Pain: Controlled Complications: Absent Post Op Complications Complications None Follow Up Care/Instructions Patient Instructions None needed. Anesthesiology Discharge Order Discharge Order Patient is doing well, no complaints, stable vital signs, no apparent adverse anesthesia problems. No complications reported per nursing. KAREN CROW CRNA May 06, 2018 11:18
[2018-05-06 11:23] VITALS: BP 174/69
== END 2018-05-06 11:23 | disposition home or self-care (01) ==
LOC: SDC 08:54
PROVIDERS: ATTEND Specialist
DX: H25.11 Age-related nuclear cataract, right eye (principal); I25.10 Atherosclerotic heart disease of native coronary artery without angina pectoris; I10 Essential (primary) hypertension; G47.33 Obstructive sleep apnea (adult) (pediatric); Z95.1 Presence of aortocoronary bypass graft; Z79.01 Long term (current) use of anticoagulants; Z79.899 Other long term (current) drug therapy

== ENCOUNTER → 2018-05-11 | Outpatient (CLI) | payer MEDICARE, OTHER ==
[~2018-05-11] MED LIST changes: +DEXT1TAB14 PO; +DIPH25TA65 PO; +FLUT1BLS INH; +GUAI-370 PO; +GUAI600T28 PO; +HOLD METFORMIN - RECEIVED CONTRAST 20 ML VIAL IV SCH; +IOHEXOL 350 MG/ML 100 ML (OMNIPAQUE 350) VIAL IV ONE; +IPRA3AMP31 NEB; +LEVO500T80 PO; +LORA10TA76 PO; +OSEL75CA15 PO; +PLTR10OP OD; +PRED5DRO17 OD; +RT-ALBUINH INH; +SUCR1TAB36 PO; +TIOT18CA2 IH; +ZAFI20TA13 PO
--- NOTE | 2018-05-11 15:47 | Diagnostic Imaging Report ---
PROCEDURE: CT chest with contrast only. TECHNIQUE: Multiple contiguous axial images were obtained through the chest after administration of intravenous contrast. Auto Exposure Controls were utilized during the CT exam to meet ALARA standards for radiation dose reduction. INDICATION: Shortness of breath and cough. COMPARISON: Correlation is made with prior CT chest from 06/18/2011. FINDINGS: Postoperative changes of median sternotomy are noted. No axillary lymphadenopathy is detected. Small lymph nodes in the mediastinum are identified. There are some calcified lymph nodes in the right hilum, likely from prior granulomatous exposure. No pericardial or pleural fluid is identified. The central airways are patent. There is some minimal scarring in the left lower lobe. There appears to be some minimal tree in bud infiltrate in the left lower lobe, likely on an infectious/inflammatory basis. Right lung is clear apart from a calcified granuloma in the right lower lobe. Upper abdomen demonstrates postoperative changes of LAP-BAND surgery. IMPRESSION: 1. Minimal tree in bud infiltrates in the left lower lobe, likely on an infectious/inflammatory basis. Study is otherwise unremarkable. Dictated by: Dictated on workstation # [id number]
== END ==
LOC: RAD 15:06
PROVIDERS: ATTEND Family Medicine
DX: R06.02 Shortness of breath (principal); R05 Cough; Z98.890 Other specified postprocedural states
CPT/HCPCS: 71260

== ENCOUNTER 2018-05-12 13:56 | Inpatient (IN) | payer MEDICARE, OTHER ==
[~2018-05-12] VITALS: Ht 163.8 cm; Wt 119.4 kg
[~2018-05-12 13:56] MED LIST changes: -DEXT1TAB14 PO; -DIPH25TA65 PO; -FLUT1BLS INH; -GUAI-370 PO; -GUAI600T28 PO; -HOLD METFORMIN - RECEIVED CONTRAST 20 ML VIAL IV SCH; -IOHEXOL 350 MG/ML 100 ML (OMNIPAQUE 350) VIAL IV ONE; -IPRA3AMP31 NEB; -LEVO500T80 PO; -LORA10TA76 PO; -OSEL75CA15 PO; -PLTR10OP OD; -PRED5DRO17 OD; -RIVA20TA PO; +RIVA20TA2 PO; -RT-ALBUINH INH; -SUCR1TAB36 PO; -TIOT18CA2 IH; -ZAFI20TA13 PO
--- NOTE | 2018-05-12 14:00 | NUR ---
EDILMA CHAIREZ admitted to room 424-1, with an admitting diagnosis of ASTHMA EXACERBATION, PNEUMONIA, on 05/12/[address] GARZA'S via AMBULATION, accompanied by AND [id number]. EDILMA CHAIREZ introduced to surroundings, call light, bed controls, phone, TV, temperature control, lights, meal times, smoking policy, visitor policy, side rail policy, bathrooms and showers. Patient Rights given to patient in the handbook. EDILMA CHAIREZ verbalizes understanding that [facility] is not responsible for the loss or damage to any personal effects or valuables that are kept in the patients posession during their hospitalization. EDILMA CHAIREZ verbalizes understanding of Interdisciplinary Patient Education. Patient and/or family were informed about the Rapid Response Team and its purpose.
[2018-05-12] MEDS ORDERED: RT-ALBUTEROL/IPRATROPIUM 3 ML (DUONEB) VIAL IH PRN (14:15)
[2018-05-12] MEDS ORDERED: IPRA3AMP31 NEB (14:21)
[2018-05-12] MEDS ORDERED: OSEL75CA15 PO (14:21)
[2018-05-12] MEDS ORDERED: ZAFI20TA13 PO (14:21)
[2018-05-12] MEDS ORDERED: FLUT1BLS INH (14:21)
[2018-05-12] MEDS ORDERED: GUAI-370 PO (14:29)
[2018-05-12] MEDS ORDERED: POTA10CA43 PO (14:29)
[2018-05-12] MEDS ORDERED: RT-ALBUINH INH (14:29)
[2018-05-12] MEDS ORDERED: METO50TA15 PO (14:29)
[2018-05-12] MEDS ORDERED: ALPR0.254 PO (14:29)
[2018-05-12] MEDS ORDERED: PRED5DRO17 OD (14:29)
[2018-05-12] MEDS ORDERED: PLTR10OP OD (14:29)
[2018-05-12] MEDS ORDERED: LEVO500T80 PO (14:29)
[2018-05-12] MEDS ORDERED: CATHETER FLUSH 10 ML SYR IV PRN (14:30)
[2018-05-12] MEDS ORDERED: TIOT18CA2 IH (14:35)
[2018-05-12] MEDS ORDERED: DIPH25TA65 PO (14:35)
[2018-05-12 14:37] VITALS: BP 155/81
[2018-05-12] MEDS ORDERED: SUCR1TAB36 PO (14:54)
[2018-05-12] MEDS ORDERED: TRAM50TA2 PO (14:54)
[2018-05-12] MEDS ORDERED: DEXT1TAB14 PO (14:54)
[2018-05-12] MEDS ORDERED: LORA10TA76 PO (14:54)
[2018-05-12] MEDS ORDERED: GUAI600T28 PO (14:54)
--- NOTE | 2018-05-12 14:55 | NUR ---
SPOKE WITH THE PATIENT ABOUT HER MEDICATIONS. WE WENT OVER THE LIST FROM THE [facility] OFFICE WELL THE EXT MED HX AND SHE VERIFIED HOW SHE TAKES HER MEDS. I ALSO LOOKED THROUGH HER PILLS THAT WERE BROUGHT IN. SHE WAS PRESCRIBED ZAFIRLUKAST AND BREO TODAY, SHE HAS NOT PICKED THEM UP YET DUE TO BE ADMITTED. I ADDED THEM TO THE MED REC AT THIS TIME. HER POTASSIUM 10MEQ WAS WRITTEN 2 CAPS BID HOWEVER SHE ONLY TAKES 1 BID. HER XANAX IS WRITTEN 1 Q4-6H PRN HOWEVER SHE TAKES 1 BID ONLY. HER METOPROLOL TARTRATE 50MG WAS FILLED #180 FOR 90 DAY SUPPLY 12-21-17 - SHE STATES SHE IS NOW TAKING 1/2 TAB BID. THE EXT MED HX SHOWS HER XARELTO HAS NOT BEEN FILLED SINCE 02-14-18 #30 THAT IS ALSO THE DATE ON THE BOTTLE SHE HAS WITH HER. SHE STATES SHE DOES NOT GET SAMPLES HOWEVER SHE SHOULD BE OUT OF THESE BY NOW IF SHE TAKES THEM EVERY DAY. I NOTED THE PAST DUE FILL DATE ON THE MED REC. SHE HAS GOTTEN VENTOLIN AND SPIRIVA SAMPLES RECENTLY. SHE TAKES THE FOLLOWING NEEDED: TRAMADOL CARAFATE CLARITIN CORICIDIN FLU MUCINEX ER 600 BENADRYL (WHEN TAKING LEVAQUIN DUE TO ALLERGY)
[2018-05-12 15:09] LABS: BASOPHILS # (AUTO) 0.1 10^3/uL (0.0-0.1); BASOPHILS % (AUTO) 1 % (0-10); EOSINOPHILS # (AUTO) 0.1 10^3/uL (0.0-0.3); EOSINOPHILS % (AUTO) 2 % (0-10); HEMATOCRIT 44 % (35-52); HEMOGLOBIN 14.5 G/DL (11.5-16.0); LYMPHOCYTES # (AUTO) 2.7 X 10^3 (1.0-4.0); LYMPHOCYTES % (AUTO) 36 % (12-44); MEAN CORPUSCULAR HEMOGLOBIN 30 PG (25-34); MEAN CORPUSCULAR HGB CONC 33 G/DL (32-36); MEAN CORPUSCULAR VOLUME 93 FL (80-99); MEAN PLATELET VOLUME 12.6 FL (7.4-10.4); MONOCYTES # (AUTO) 0.9 X 10^3 (0.0-1.0); MONOCYTES % (AUTO) 12 % (0-12); NEUTROPHILS # (AUTO) 3.8 X 10^3 (1.8-7.8); NEUTROPHILS % (AUTO) 50 % (42-75); PLATELET COUNT 172 10^3/uL (130-400); RED CELL DISTRIBUTION WIDTH 13.7 % (10.0-14.5); WHITE BLOOD COUNT 7.6 10^3/uL (4.3-11.0)
[2018-05-12] MEDS: NS IV 1000 ML 1,000 ML IV SCH (15:28)
[2018-05-12 15:30] LABS: ALBUMIN 3.7 GM/DL (3.2-4.5); BILIRUBIN,TOTAL 0.3 MG/DL (0.1-1.0); CALCIUM 9.4 MG/DL (8.5-10.1); CREATININE SERUM 0.99 MG/DL (0.60-1.30); MAGNESIUM 2.2 MG/DL (1.8-2.4); PHOSPHORUS 3.4 MG/DL (2.3-4.7); POTASSIUM 3.8 MMOL/L (3.6-5.0); TOTAL PROTEIN 7.1 GM/DL (6.4-8.2)
[2018-05-12] MEDS ORDERED: PROMETHAZINE INJ 25 MG/ML (PHENERGAN) AMP IVP PRN (15:30)
[2018-05-12] MEDS ORDERED: guaiFENesin (MUCINEX) 600 MG TAB PO PRN (15:45)
[2018-05-12 16:00] VITALS: BP 117/79
[2018-05-12] MEDS ORDERED: AZITHROMYCIN INJECTION 500 MG in NS (IVPB) 250 ML IV NR (16:13)
--- NOTE | 2018-05-12 16:57 | Diagnostic Imaging Report ---
INDICATION: Shortness breath PORTABLE CHEST 3:46 PM FINDINGS: There are postop changes from a median sternotomy. Heart size and pulmonary vascularity are normal. The lungs are clear. There are no effusions or pneumothoraces. IMPRESSION: Negative chest. Dictated by: Dictated on workstation # [id number]
[2018-05-12 17:08] LABS: BILIRUBIN,URINE NEGATIVE (NEGATIVE); CLARITY,URINE CLEAR; COLOR,URINE YELLOW; GLUCOSE, URINE (UA) NEGATIVE (NEGATIVE); KETONES,URINE NEGATIVE (NEGATIVE); LEUKOCYTE ESTERASE ,URINE NEGATIVE (NEGATIVE); NITRITE,URINE NEGATIVE (NEGATIVE); PH,URINE 5 (5-9); PROTEIN,URINE NEGATIVE (NEGATIVE); UROBILINOGEN,URINE NORMAL (NORMAL)
[2018-05-12 17:13] LABS: BACTERIA,URINE NEGATIVE /HPF; RBC,URINE RARE /HPF; WBC,URINE 0-2 /HPF
[2018-05-12] MEDS: RT-ALBUTEROL/IPRATROPIUM 3 ML (DUONEB) VIAL IH SCH ×2 (18:04→23:01)
[2018-05-12] MEDS: methylPREDNISolone 40 MG/ML (Solu-MEDROL) VIAL IV SCH ×2 (18:16→23:30)
[2018-05-12 18:24] VITALS: BP 155/81
[2018-05-12] MEDS: RT-BUDESONIDE NEBS 0.5 MG/2ML (PULMICORT) AMP INH SCH (19:39)
[2018-05-12 19:45] VITALS: BP 128/73
[2018-05-12] MEDS: SALINE NASAL SPRAY (OCEAN) 45 ML BTL SCH (20:49)
[2018-05-12] MEDS: meTOprolol TARTRATE 50 MG (LOPRESSOR) TAB PO SCH (20:49)
[2018-05-12] MEDS: ALPRAZolam 0.25 MG (XANAX) TAB PO SCH (20:49)
[2018-05-12] MEDS: MONTELUKAST 10 MG (SINGULAIR) TAB PO SCH (20:50)
--- NOTE | 2018-05-12 21:50 | NUR ---
Dr. Do here to see pt. Orders received to reduce fluids to 50 mL/hr et administer one-time dose of 20 mEq potassium PO now.
[2018-05-12] MEDS ORDERED: KCL 20 MEQ TAB (K-DUR) PO ONE ×2 (22:00→22:07)
[2018-05-12 23:32] VITALS: BP 154/68
[2018-05-13] MEDS ORDERED: ONDANSETRON 4 MG/2 ML (SDV) Z0FRAN ONE (00:44)
[2018-05-13] MEDS: ONDANSETRON 4 MG/2 ML (SDV) Z0FRAN IVP PRN (00:47)
--- NOTE | 2018-05-13 00:52 | NUR ---
Pt c/o nausea et reports feeling as if she is going to vomit. Dr. Do at bedside. Orders received for 4 mg Zofran IV.
[2018-05-13] MEDS: RT-ALBUTEROL/IPRATROPIUM 3 ML (DUONEB) VIAL IH SCH ×2 (01:31→07:23)
[2018-05-13] MEDS: NS IV 1000 ML 1,000 ML IV SCH ×2 (03:06→05:17)
[2018-05-13 03:36] VITALS: BP 136/62
[2018-05-13 05:04] LABS: BASOPHILS % (AUTO) 0 % (0-10); EOSINOPHILS % (AUTO) 0 % (0-10); HEMATOCRIT 41 % (35-52); HEMOGLOBIN 13.4 G/DL (11.5-16.0); LYMPHOCYTES # (AUTO) 1.1 X 10^3 (1.0-4.0); LYMPHOCYTES % (AUTO) 18 % (12-44); MEAN CORPUSCULAR HEMOGLOBIN 31 PG (25-34); MEAN CORPUSCULAR HGB CONC 33 G/DL (32-36); MEAN CORPUSCULAR VOLUME 93 FL (80-99); MEAN PLATELET VOLUME 12.5 FL (7.4-10.4); MONOCYTES # (AUTO) 0.1 X 10^3 (0.0-1.0); MONOCYTES % (AUTO) 2 % (0-12); NEUTROPHILS # (AUTO) 4.7 X 10^3 (1.8-7.8); NEUTROPHILS % (AUTO) 80 % (42-75); PLATELET COUNT 165 10^3/uL (130-400); RED CELL DISTRIBUTION WIDTH 13.4 % (10.0-14.5); WHITE BLOOD COUNT 5.8 10^3/uL (4.3-11.0)
[2018-05-13] MEDS: methylPREDNISolone 40 MG/ML (Solu-MEDROL) VIAL IV SCH ×3 (05:17→18:32)
[2018-05-13 05:26] LABS: CALCIUM 8.9 MG/DL (8.5-10.1); CREATININE SERUM 0.97 MG/DL (0.60-1.30); MAGNESIUM 2.1 MG/DL (1.8-2.4); POTASSIUM 4.3 MMOL/L (3.6-5.0)
[2018-05-13] MEDS: RT-BUDESONIDE NEBS 0.5 MG/2ML (PULMICORT) AMP INH SCH ×2 (07:23→19:09)
--- NOTE | 2018-05-13 07:53 | Pulmonary History & Physicial ---
History of Present Illness History of Present Illness Date of Consultation 05/13/18 07:53 Time Seen by Provider: 09:11 Date of Admission History of Present Illness 67yo never smoker with hx of SKYLER directly admitted from my office secondary to worsening SOB, and coughing after failing out pt treatment. Pt has a lot of allergies both meds and environment. She has been very wheezy and is very sensitive to albuterol and prednisone. Pt has been waking up from sleep very SOB and wheezy. She has had similar prior episodes however not this severe. Allergies and Home Medications Allergies Coded Allergies: apixaban (Verified Allergy, Severe, HIVES, 05/12/18) olmesartan (Verified Allergy, Severe, HIVES, 05/12/18) doxycycline (Verified Allergy, Intermediate, HIVES, 05/12/18) SWELLING, HIVES Penicillins (Verified Allergy, Unknown, PT CAN TAKE KEFLEX, 05/12/18) Sulfa (Sulfonamide Antibiotics) (Verified Allergy, Unknown, 05/12/18) Tetanus Vaccines and Toxoid (Verified Allergy, Unknown, 05/12/18) codeine (Verified Allergy, Unknown, 05/12/18) levofloxacin (Verified Allergy, Unknown, HIVES, 05/12/18) CAN TAKE LONG SHE ALSO TAKES BENADRYL morphine (Verified Allergy, Unknown, 05/12/18) Home Medications Albuterol Sulfate 1 Puff Puff, 2 PUFF INH Q4H PRN for SHORTNESS OF BREATH, ( Reported) 1 PUFF = 90 MCG Alprazolam 0.25 Mg Tablet, 0.25 MG PO BID, (Reported) Dextromethorphn/Acetaminoph/Cp 1 Each Tablet, 2 TAB PO Q4H PRN for FLU LIKE SYMPTOMS, (Reported) Diphenhydramine HCl 25 Mg Tablet, 25 MG PO DAILY PRN for WHEN TAKING LEVOFLOXACIN, (Reported) Fluticasone/Vilanterol 1 Each Blst.w.dev, 1 PUFF INH DAILY, (Reported) Guaifenesin 600 Mg Tab.er.12h, 600 MG PO Q12H PRN for CONGESTION, (Reported) Ipratropium/Albuterol Sulfate 3 Ml Ampul.neb, 3 ML NEB Q6H PRN for SHORTNESS OF BREATH, (Reported) Levofloxacin 500 Mg Tablet, 500 MG PO DAILY, (Reported) 7 DAY SUPPLY FILLED 3-23-19 Loratadine 10 Mg Tablet, 10 MG PO DAILY PRN for ALLERGIES, (Reported) Metoprolol Tartrate 50 Mg Tablet, 25 MG PO BID, (Reported) TAKES 1/2 (50MG) TABLET Oseltamivir Phosphate 75 Mg Capsule, 75 MG PO BID, (Reported) 5 DAY THERAPY FILLED 05-10-18 Polymyxin B Sulf/Trimethoprim 10 Ml Drops, 1 DROP OD QID, (Reported) Potassium Chloride 10 Meq Capsule.er, 10 MEQ PO BID, (Reported) Prednisolone Acetate 5 Ml Drops.susp, 1 DROP OD QID, (Reported) Rivaroxaban 20 Mg Tablet, 20 MG PO DAILY, (Reported) LAST FILLED #30 02-14-18 Sucralfate 1 Gm Tablet, 1 GM PO ACHS PRN for INDIGESTION, (Reported) Tiotropium Salt Flat 1 Inh Aerp, 1 CAP IH DAILY, (Reported) Tramadol HCl 50 Mg Tablet, 50 MG PO Q6H PRN for PAIN-MODERATE, (Reported) Zafirlukast 20 Mg Tablet, 20 MG PO BID, (Reported) Patient Home Medication List Home Medication List Reviewed: Yes Past Jsvvsgg-Vydyim-Qftiew Hx Patient Social History Alcohol Use: Denies Use Recreational Drug Use: No 2nd Hand Smoke Exposure: No Recent Foreign Travel: No Contact w/Someone Who Travel: No Recent Infectious Disease Expo: No Recent Hopitalizations: No Immunizations Up To Date Date of Pneumonia Vaccine: Dec 09, 2016 Date of Influenza Vaccine: Nov 02, 2018 Seasonal Allergies Seasonal Allergies: Yes Past Medical History Surgeries: Yes (LAP BAND, CATARACTS) Cardiac, Gallbladder, Hysterectomy, Joint Replacement Respiratory: Yes Asthma, Pneumonia Currently Using CPAP: Yes (AT NIGHT) Currently Using BIPAP: No Cardiac: Yes (HX OF OPEN HEART SURGERY) Hypertension Neurological: No Reproductive Disorders: Yes Female Reproductive Disorders: Endometriosis Genitourinary: No Gastrointestinal: No Musculoskeletal: No Endocrine: No Cataract Cancer: No Psychosocial: Yes Anxiety Integumentary: No Blood Disorders: No Adverse Reaction/Blood Tranf: No Family Medical History FH: COPD (chronic obstructive pulmonary disease) 19 MOTHER Kidney disease 19 MOTHER Cancer, Hypertension, Renal Disease Review of Systems Time Seen by Provider: 09:26 Constitutional: Weakness, Malaise; No: Fever, Chills, Sweats, Other Eyes: No: Pain, Vision change, Conjunctivae inflammation, Eyelid inflammation, Other, Redness ENT: Nose discharge, Nose congestion; No: Ear pain, Ear discharge, Nose pain, Mouth pain, Mouth swelling, Throat pain, Throat swelling, Other Respiratory: Cough, Shortness of breath, SOB with excertion, Wheezing; No: Hemoptysis, Pleuritic Pain Cardiovascular: Paroxysmal Noc. Dyspnea; No: Chest Pain, Palpitations, Orthopnea, Edema, Lt Headedness, Other Gastrointestinal: No: Nausea, Vomiting, Abdominal Pain, Diarrhea, Constipation , Melena, Hematochezia, Other Neurological: Weakness Exam Exam Vital Signs Date Time Temp Pulse Resp B/P (MAP) Pulse Ox O2 Delivery O2 Flow Rate FiO2 05/13/18 07:23 97 Nasal Cannula 2.50 05/13/18 07:10 65 05/13/18 03:36 97.5 80 20 136/62 (86) 95 Nasal Cannula 1.50 05/13/18 01:31 94 Nasal Cannula 05/13/18 01:00 93 05/12/18 23:32 97.6 91 20 154/68 (96) Room Air 05/12/18 20:00 Room Air 05/12/18 19:45 98.5 96 14 128/73 (91) 94 Room Air 05/12/18 19:39 94 Room Air 05/12/18 18:57 93 05/12/18 18:24 98.8 71 20 155/81 95 Room Air 05/12/18 18:04 Room Air 91 05/12/18 17:22 82 05/12/18 16:00 98.0 81 16 117/79 (92) 94 Room Air 05/12/18 14:37 98.8 71 20 155/81 (105) 95 Room Air 05/12/18 14:00 96 Room Air I & O 05/13/18 06:59 Intake Total 2490 ml Output Total 1650 ml Balance 840 ml Height & Weight Height: 5'4.50" Weight: 263lbs. 5.0oz. 119.567981wi; 44.5 BMI Method:Stated General Appearance: Mild Distress HEENT: PERRL/EOMI, Pharynx Normal Neck: Full Range of Motion, Normal Inspection, Non Tender, Supple Respiratory: Chest Non Tender, No Accessory Muscle Use, No Respiratory Distress , Decreased Breath Sounds, Wheezing Cardiovascular: Regular Rate, Rhythm, No Edema, No JVD, No Murmur Capillary Refill: Less Than 3 Seconds Gastrointestinal: normal bowel sounds, non tender, soft Extremity: Normal Capillary Refill, No Pedal Edema Neurologic/Psychiatric: Alert, Oriented x3 Skin: Normal Color, Warm/Dry Lymphatic: No Adenopathy Results Lab Laboratory Tests 05/12/18 14:53 05/13/18 04:35 Assessment/Plan Assessment/Plan Admission Dx AsthmaAE -Give 1gm of Mg -Change SVN from albuterol to xopenex secondary to albuterol intolerance -Oxygen -Heliox PRN -Solumedrol 40 IV Q6 -gentle hydration -Check respiratory viral panel, and aspergillus abx Tremors/anxiety - secondary to steroids and albuterol -Start Ativan IV PRN Obesity with SKYLER -PT is usually compliant with CPAP however secondary to acute illness she is unable to use it currently Metabolic acidosis ( CO2 on chem is 19) -Monitor -IVF Admission Status: Inpatient Order (span 2 midnights) Reason for Inpatient Admission: Asthma AE as above BRITTON GARZA DO May 13, 2018 07:53
--- NOTE | 2018-05-13 07:56 | Diagnostic Imaging Report ---
Indication: Dyspnea Upright portable AP view of the chest is obtained. Comparison is made to study of one day earlier. Overall heart size and pulmonary vascularity are within normal limits. There is no pneumothorax or consolidation. There is no evidence of significant pleural fluid. Surgical changes are noted in the mediastinum. There are occasional small calcified granulomas present. Impression: No acute abnormality or adverse change. Dictated by: Dictated on workstation # [id number]
[2018-05-13 08:15] VITALS: BP 135/83
[2018-05-13] MEDS: ALPRAZolam 0.25 MG (XANAX) TAB PO SCH (09:02)
[2018-05-13] MEDS ORDERED: CHLORASEPTIC LOZENGE MM PRN (09:15)
[2018-05-13] MEDS ORDERED: MAGNESIUM 1 GM/100 ML IVPB 100 ML IV ONE (09:30)
[2018-05-13] MEDS ORDERED: RT-LEVALBUTEROL (XOPENEX) 1.25 MG/3 ML NEB NON-FORMULARY INH PRN (09:30)
[2018-05-13] MEDS: SALINE NASAL SPRAY (OCEAN) 45 ML BTL SCH ×2 (10:13→20:11)
[2018-05-13] MEDS: RIVAROXABAN 20 MG TABLET (XARELTO) PO SCH (10:13)
[2018-05-13] MEDS: BENZONATATE 100 MG (TESSALON) CAPSULE PO SCH ×3 (10:14→20:11)
[2018-05-13] MEDS: meTOprolol TARTRATE 50 MG (LOPRESSOR) TAB PO SCH ×2 (10:14→20:11)
[2018-05-13] MEDS: LORATADINE (CLARITIN) 10 MG TAB PO SCH (10:15)
[2018-05-13] MEDS: AZITHROMYCIN INJECTION 250 MG in NS (IVPB) 250 ML IV SCH (10:15)
[2018-05-13] MEDS: FLUTICASONE NASAL SPRAY (FLONASE) 16 GM BTL NS SCH (10:15)
[2018-05-13] MEDS: LORazepam INJ 2 MG/ML (ATIVAN) VIAL IVP PRN ×2 (10:28→20:58)
[2018-05-13] MEDS: RT-LEVALBUTEROL (XOPENEX) 1.25 MG/3 ML NEB NON-FORMULARY INH SCH ×4 (11:12→22:52)
[2018-05-13 12:39] VITALS: BP 140/68
[2018-05-13 16:00] VITALS: BP 149/68
[2018-05-13 20:00] VITALS: BP 133/77
[2018-05-13] MEDS: MONTELUKAST 10 MG (SINGULAIR) TAB PO SCH (20:11)
[2018-05-14] VITALS (7 sets, daily range): BP systolic 119–162; BP diastolic 63–76
[2018-05-14] MEDS: methylPREDNISolone 40 MG/ML (Solu-MEDROL) VIAL IV SCH ×5 (00:07→23:48)
[2018-05-14] MEDS: RT-LEVALBUTEROL (XOPENEX) 1.25 MG/3 ML NEB NON-FORMULARY INH SCH ×6 (03:00→22:11)
[2018-05-14] MEDS: NS IV 1000 ML 1,000 ML IV SCH ×2 (03:29→16:51)
[2018-05-14 06:06] LABS: BASOPHILS % (AUTO) 0 % (0-10); EOSINOPHILS % (AUTO) 0 % (0-10); HEMATOCRIT 41 % (35-52); HEMOGLOBIN 13.5 G/DL (11.5-16.0); LYMPHOCYTES # (AUTO) 1.6 X 10^3 (1.0-4.0); LYMPHOCYTES % (AUTO) 10 % (12-44); MEAN CORPUSCULAR HEMOGLOBIN 31 PG (25-34); MEAN CORPUSCULAR HGB CONC 33 G/DL (32-36); MEAN CORPUSCULAR VOLUME 92 FL (80-99); MEAN PLATELET VOLUME 12.6 FL (7.4-10.4); MONOCYTES # (AUTO) 0.4 X 10^3 (0.0-1.0); MONOCYTES % (AUTO) 3 % (0-12); NEUTROPHILS # (AUTO) 13.2 X 10^3 (1.8-7.8); NEUTROPHILS % (AUTO) 87 % (42-75); PLATELET COUNT 195 10^3/uL (130-400); RED CELL DISTRIBUTION WIDTH 13.7 % (10.0-14.5); WHITE BLOOD COUNT 15.2 10^3/uL (4.3-11.0)
[2018-05-14 06:23] LABS: CALCIUM 9.1 MG/DL (8.5-10.1); CREATININE SERUM 1.05 MG/DL (0.60-1.30); MAGNESIUM 2.7 MG/DL (1.8-2.4); PHOSPHORUS 3.7 MG/DL (2.3-4.7); POTASSIUM 3.9 MMOL/L (3.6-5.0)
--- NOTE | 2018-05-14 06:44 | NUR ---
Pt has a lactic acid of 2.35 et WBC of 15.2. Dr. Godfrey notified. Orders received to increase NS fluids to 100 mL/hr.
[2018-05-14 06:59] LABS: LYMPHOCYTES % (MANUAL) 5 %; MONOCYTES % (MANUAL) 1 %; NEUTROPHILS % (MANUAL) 94 %
--- NOTE | 2018-05-14 07:09 | Pulmonary Progress Note ---
Subjective Time Seen by a Provider: 07:08 Subjective/Events-last exam LA is elevated. Will increase IVF. Sepsis Event Evaluation Height, Weight, BMI Height: 5'4.50" Weight: 263lbs. 5.0oz. 119.314948an; 44.5 BMI Method:Stated Focused Exam Lactate Level 05/14/18 05:30: Lactic Acid Level 2.35*H Lactic Acid Level Laboratory Tests Test 05/14/18 05:30 Lactic Acid Level 2.35 MMOL/L (0.50-2.00) *H Exam Exam Vital Signs Date Time Temp Pulse Resp B/P (MAP) Pulse Ox O2 Delivery O2 Flow Rate FiO2 05/14/18 04:42 97.5 71 18 143/66 (91) 95 Nasal Cannula 1.50 05/14/18 03:00 95 Nasal Cannula 2.00 05/14/18 01:00 60 05/14/18 00:24 97.5 69 18 119/73 (88) 95 Nasal Cannula 1.50 05/13/18 22:52 95 Nasal Cannula 2.00 05/13/18 20:00 97.3 98 20 133/77 (95) 97 Nasal Cannula 1.50 05/13/18 20:00 Nasal Cannula 2.00 05/13/18 19:10 93 Nasal Cannula 1.00 05/13/18 19:00 83 05/13/18 16:00 97.6 75 18 149/68 (95) 94 Nasal Cannula 1.50 05/13/18 15:54 94 Nasal Cannula 1.00 05/13/18 13:26 78 05/13/18 12:39 98.0 86 20 140/68 (92) 95 Nasal Cannula 1.50 05/13/18 11:13 94 Nasal Cannula 1.50 05/13/18 08:20 Room Air 05/13/18 08:15 97.9 99 22 135/83 (100) 94 Nasal Cannula 1.50 05/13/18 07:23 97 Nasal Cannula 2.50 05/13/18 07:10 65 I & O 05/14/18 07:00 Intake Total 3170 ml Output Total 1350 ml Balance 1820 ml Height & Weight Height: 5'4.50" Weight: 263lbs. 5.0oz. 119.694169la; 44.5 BMI Method:Stated General Appearance: Mild Distress HEENT: PERRL/EOMI, Pharynx Normal Neck: Full Range of Motion, Normal Inspection, Non Tender, Supple Respiratory: Chest Non Tender, No Accessory Muscle Use, No Respiratory Distress , Decreased Breath Sounds, Wheezing Cardiovascular: Regular Rate, Rhythm, No Edema, No JVD, No Murmur Capillary Refill: Less Than 3 Seconds Gastrointestinal: normal bowel sounds, non tender, soft Extremity: Normal Capillary Refill, No Pedal Edema Neurologic/Psychiatric: Alert, Oriented x3 Skin: Normal Color, Warm/Dry Lymphatic: No Adenopathy Results Lab Laboratory Tests 05/12/18 14:53 05/13/18 04:35 05/14/18 05:30 Assessment/Plan Assessment/Plan AsthmaAE - xopenex secondary to albuterol intolerance -Oxygen -Heliox PRN -Solumedrol 40 IV Q6 -gentle hydration -Check respiratory viral panel, and aspergillus abx Tremors/anxiety - secondary to steroids and albuterol -Start Ativan IV PRN Metabolic lactic acidosis ( CO2 on chem is 19) - probably secondary to dehydration and albuterol -Monitor -IVF- increase to 100cc/hr Obesity with SKYLER -PT is usually compliant with CPAP however secondary to acute illness she is unable to use it currently BRITTON GARZA DO May 14, 2018 07:09
[2018-05-14] MEDS: RT-BUDESONIDE NEBS 0.5 MG/2ML (PULMICORT) AMP INH SCH ×2 (07:36→18:44)
[2018-05-14] MEDS: UMECLIDINIUM BROMIDE (INCRUSE ELLIPTA) 7'S IH SCH (07:36)
[2018-05-14] MEDS: BENZONATATE 100 MG (TESSALON) CAPSULE PO SCH ×3 (07:37→21:25)
[2018-05-14] MEDS: RIVAROXABAN 20 MG TABLET (XARELTO) PO SCH (07:37)
[2018-05-14] MEDS: meTOprolol TARTRATE 50 MG (LOPRESSOR) TAB PO SCH ×2 (07:37→21:25)
[2018-05-14] MEDS: LORATADINE (CLARITIN) 10 MG TAB PO SCH (07:37)
[2018-05-14] MEDS: LORazepam INJ 2 MG/ML (ATIVAN) VIAL IVP PRN ×2 (07:38→14:29)
[2018-05-14] MEDS: FLUTICASONE NASAL SPRAY (FLONASE) 16 GM BTL NS SCH (07:40)
[2018-05-14] MEDS: SALINE NASAL SPRAY (OCEAN) 45 ML BTL SCH ×2 (07:40→21:26)
[2018-05-14] MEDS: AZITHROMYCIN INJECTION 250 MG in NS (IVPB) 250 ML IV SCH (10:11)
[2018-05-14] MEDS: guaiFENesin (MUCINEX) 600 MG TAB PO SCH ×2 (10:13→21:25)
--- NOTE | 2018-05-14 10:27 | Diagnostic Imaging Report ---
INDICATION: Shortness of breath. Comparison is made with prior study from 05/13/2018. FINDINGS: Patient is status post previous sternotomy. Cardiac size unchanged. Mediastinal contour is stable. Central pulmonary vascularity appears normal. There is no focal alveolar infiltrate or consolidation demonstrated or findings of significant effusion. There is no pneumothorax. IMPRESSION: 1. Stable radiographic appearance of the chest. No acute cardiopulmonary process evident. Dictated by: Dictated on workstation # [id number]
[2018-05-14] MEDS: MONTELUKAST 10 MG (SINGULAIR) TAB PO SCH (21:26)
[2018-05-15] VITALS: BP 133/64
[2018-05-15] MEDS: RT-LEVALBUTEROL (XOPENEX) 1.25 MG/3 ML NEB NON-FORMULARY INH SCH ×6 (02:21→22:56)
[2018-05-15] MEDS: NS IV 1000 ML 1,000 ML IV SCH (03:17)
[2018-05-15 04:00] VITALS: BP 154/74
[2018-05-15] MEDS: methylPREDNISolone 40 MG/ML (Solu-MEDROL) VIAL IV SCH ×3 (05:07→17:20)
[2018-05-15] MEDS: LORazepam INJ 2 MG/ML (ATIVAN) VIAL IVP PRN ×3 (05:14→17:20)
[2018-05-15 06:12] LABS: BASOPHILS % (AUTO) 0 % (0-10); EOSINOPHILS % (AUTO) 0 % (0-10); HEMATOCRIT 41 % (35-52); HEMOGLOBIN 13.2 G/DL (11.5-16.0); LYMPHOCYTES # (AUTO) 1.6 X 10^3 (1.0-4.0); LYMPHOCYTES % (AUTO) 10 % (12-44); MEAN CORPUSCULAR HEMOGLOBIN 30 PG (25-34); MEAN CORPUSCULAR HGB CONC 32 G/DL (32-36); MEAN CORPUSCULAR VOLUME 93 FL (80-99); MEAN PLATELET VOLUME 12.4 FL (7.4-10.4); MONOCYTES # (AUTO) 0.4 X 10^3 (0.0-1.0); MONOCYTES % (AUTO) 3 % (0-12); NEUTROPHILS # (AUTO) 14.3 X 10^3 (1.8-7.8); NEUTROPHILS % (AUTO) 88 % (42-75); PLATELET COUNT 194 10^3/uL (130-400); RED CELL DISTRIBUTION WIDTH 13.7 % (10.0-14.5); WHITE BLOOD COUNT 16.3 10^3/uL (4.3-11.0)
[2018-05-15 06:33] LABS: BUN/CREATININE RATIO 22; CALCIUM 8.4 MG/DL (8.5-10.1); CARBON DIOXIDE 19 MMOL/L (21-32); CHLORIDE 108 MMOL/L (98-107); CREATININE SERUM 0.92 MG/DL (0.60-1.30); GFR ESTIMATED > 60; GLUCOSE 146 MG/DL (70-105); MAGNESIUM 2.2 MG/DL (1.8-2.4); PHOSPHORUS 3.7 MG/DL (2.3-4.7); POTASSIUM 4.2 MMOL/L (3.6-5.0); SODIUM 139 MMOL/L (135-145)
--- NOTE | 2018-05-15 06:35 | Pulmonary Progress Note ---
Subjective Time Seen by a Provider: 07:40 Subjective/Events-last exam Still wheezy. PT had worsening SOB during the night. Sepsis Event Evaluation Height, Weight, BMI Height: 5'4.50" Weight: 263lbs. 5.0oz. 119.299454pu; 44.5 BMI Method:Stated Focused Exam Lactate Level 05/14/18 05:30: Lactic Acid Level 2.35*H 05/15/18 05:40: Lactic Acid Level 1.88 Lactic Acid Level Laboratory Tests Test 05/15/18 05:40 Lactic Acid Level 1.88 MMOL/L (0.50-2.00) Exam Exam Vital Signs Date Time Temp Pulse Resp B/P (MAP) Pulse Ox O2 Delivery O2 Flow Rate FiO2 05/15/18 04:00 97.6 60 18 154/74 (100) 95 Room Air 05/15/18 02:21 96 Nasal Cannula 2.00 05/15/18 01:00 56 05/15/18 00:00 98.1 74 18 133/64 (87) 94 Room Air 05/14/18 22:12 95 Nasal Cannula 2.00 05/14/18 20:00 Nasal Cannula 2.00 05/14/18 19:16 98.3 63 18 144/63 (90) 94 Nasal Cannula 2.00 05/14/18 19:00 87 05/14/18 18:44 Nasal Cannula 2.00 05/14/18 18:44 93 Room Air 05/14/18 15:52 97.8 72 24 151/76 (101) 96 Nasal Cannula 2.00 05/14/18 15:15 97.8 73 22 162/72 (102) 97 Nasal Cannula 2.00 05/14/18 14:58 94 Room Air 05/14/18 13:00 74 05/14/18 12:00 98.2 71 20 145/67 (93) 93 Room Air 05/14/18 10:35 93 Room Air 05/14/18 08:00 97.8 65 18 145/68 (93) 94 Nasal Cannula 2.00 05/14/18 08:00 Nasal Cannula 2.00 05/14/18 07:39 96 Nasal Cannula 2.00 05/14/18 07:37 96 Nasal Cannula 2.00 05/14/18 07:00 71 I & O 05/15/18 07:00 Intake Total 2940 ml Output Total 1100 ml Balance 1840 ml Height & Weight Height: 5'4.50" Weight: 263lbs. 5.0oz. 119.510267ju; 44.5 BMI Method:Stated General Appearance: Mild Distress HEENT: PERRL/EOMI, Pharynx Normal Neck: Full Range of Motion, Normal Inspection, Non Tender, Supple Respiratory: Chest Non Tender, No Accessory Muscle Use, No Respiratory Distress , Decreased Breath Sounds, Wheezing Cardiovascular: Regular Rate, Rhythm, No Edema, No JVD, No Murmur Capillary Refill: Less Than 3 Seconds Gastrointestinal: normal bowel sounds, non tender, soft Extremity: Normal Capillary Refill, No Pedal Edema Neurologic/Psychiatric: Alert, Oriented x3 Skin: Normal Color, Warm/Dry Lymphatic: No Adenopathy Results Lab Laboratory Tests 05/14/18 05:30 05/15/18 05:40 Assessment/Plan Assessment/Plan AsthmaAE - xopenex secondary to albuterol intolerance -Oxygen -Heliox PRN -Solumedrol 40 IV Q6 -gentle hydration -Check respiratory viral panel, and aspergillus abx Tremors/anxiety - secondary to steroids and albuterol -Start Ativan IV PRN Metabolic lactic acidosis ( CO2 on chem is 19) - probably secondary to dehydration and albuterol -Monitor -IVF- increase to 100cc/hr Obesity with SKYLER -PT is usually compliant with CPAP however secondary to acute illness she is unable to use it currently BRITTON GARZA DO May 15, 2018 06:35
[2018-05-15] MEDS: UMECLIDINIUM BROMIDE (INCRUSE ELLIPTA) 7'S IH SCH (06:44)
[2018-05-15] MEDS: RT-BUDESONIDE NEBS 0.5 MG/2ML (PULMICORT) AMP INH SCH ×2 (06:44→18:56)
[2018-05-15 08:00] VITALS: BP 144/66
[2018-05-15] MEDS: LORATADINE (CLARITIN) 10 MG TAB PO SCH (08:00)
[2018-05-15] MEDS: guaiFENesin (MUCINEX) 600 MG TAB PO SCH ×2 (08:00→20:33)
[2018-05-15] MEDS: meTOprolol TARTRATE 50 MG (LOPRESSOR) TAB PO SCH ×2 (08:00→20:33)
[2018-05-15] MEDS: DOCUSATE SODIUM 100 MG (COLACE) CAP PO PRN ×2 (08:00→17:24)
[2018-05-15] MEDS: BENZONATATE 100 MG (TESSALON) CAPSULE PO SCH ×3 (08:00→20:33)
[2018-05-15] MEDS: RIVAROXABAN 20 MG TABLET (XARELTO) PO SCH (08:00)
[2018-05-15] MEDS: FLUTICASONE NASAL SPRAY (FLONASE) 16 GM BTL NS SCH (08:01)
[2018-05-15] MEDS: SALINE NASAL SPRAY (OCEAN) 45 ML BTL SCH ×2 (08:01→20:34)
[2018-05-15] MEDS: AZITHROMYCIN INJECTION 250 MG in NS (IVPB) 250 ML IV SCH (08:05)
[2018-05-15 12:00] VITALS: BP 158/78
[2018-05-15 15:43] VITALS: BP 142/80
[2018-05-15 19:14] VITALS: BP 145/81
[2018-05-15] MEDS: MONTELUKAST 10 MG (SINGULAIR) TAB PO SCH (20:33)
[2018-05-16] VITALS: BP 149/79
[2018-05-16] MEDS: methylPREDNISolone 40 MG/ML (Solu-MEDROL) VIAL IV SCH ×4 (00:01→17:31)
[2018-05-16] MEDS: LORazepam INJ 2 MG/ML (ATIVAN) VIAL IVP PRN (00:05)
[2018-05-16] MEDS: RT-LEVALBUTEROL (XOPENEX) 1.25 MG/3 ML NEB NON-FORMULARY INH SCH ×6 (02:55→22:40)
[2018-05-16 04:05] VITALS: BP 129/73
[2018-05-16 05:57] LABS: BASOPHILS % (AUTO) 0 % (0-10); EOSINOPHILS % (AUTO) 0 % (0-10); HEMATOCRIT 37 % (35-52); HEMOGLOBIN 12.1 G/DL (11.5-16.0); LYMPHOCYTES # (AUTO) 1.2 X 10^3 (1.0-4.0); LYMPHOCYTES % (AUTO) 11 % (12-44); MEAN CORPUSCULAR HEMOGLOBIN 31 PG (25-34); MEAN CORPUSCULAR HGB CONC 33 G/DL (32-36); MEAN CORPUSCULAR VOLUME 94 FL (80-99); MEAN PLATELET VOLUME 12.2 FL (7.4-10.4); MONOCYTES # (AUTO) 0.4 X 10^3 (0.0-1.0); MONOCYTES % (AUTO) 4 % (0-12); NEUTROPHILS # (AUTO) 9.7 X 10^3 (1.8-7.8); NEUTROPHILS % (AUTO) 85 % (42-75); PLATELET COUNT 157 10^3/uL (130-400); RED CELL DISTRIBUTION WIDTH 13.5 % (10.0-14.5); WHITE BLOOD COUNT 11.3 10^3/uL (4.3-11.0)
[2018-05-16 06:15] LABS: BUN/CREATININE RATIO 19; CALCIUM 8.4 MG/DL (8.5-10.1); CARBON DIOXIDE 20 MMOL/L (21-32); CHLORIDE 108 MMOL/L (98-107); CREATININE SERUM 0.86 MG/DL (0.60-1.30); GFR ESTIMATED > 60; GLUCOSE 149 MG/DL (70-105); MAGNESIUM 2.3 MG/DL (1.8-2.4); POTASSIUM 4.4 MMOL/L (3.6-5.0); SODIUM 138 MMOL/L (135-145)
[2018-05-16] MEDS: RT-BUDESONIDE NEBS 0.5 MG/2ML (PULMICORT) AMP INH SCH ×2 (06:55→19:02)
[2018-05-16] MEDS: UMECLIDINIUM BROMIDE (INCRUSE ELLIPTA) 7'S IH SCH (07:10)
--- NOTE | 2018-05-16 07:42 | Pulmonary Progress Note ---
Subjective Time Seen by a Provider: 07:30 Subjective/Events-last exam Still SOB/wheezing however improving. Sepsis Event Evaluation Height, Weight, BMI Height: 5'4.50" Weight: 263lbs. 5.0oz. 119.722192ua; 44.5 BMI Method:Stated Focused Exam Lactate Level 05/14/18 05:30: Lactic Acid Level 2.35*H 05/15/18 05:40: Lactic Acid Level 1.88 Exam Exam Vital Signs Date Time Temp Pulse Resp B/P (MAP) Pulse Ox O2 Delivery O2 Flow Rate FiO2 05/16/18 07:17 Room Air 05/16/18 07:11 93 Nasal Cannula 2.00 05/16/18 07:10 75 05/16/18 07:10 93 Nasal Cannula 2.00 05/16/18 04:05 96.7 59 14 129/73 (91) 95 Nasal Cannula 2.00 05/16/18 02:55 92 Nasal Cannula 1.00 05/16/18 01:00 50 05/16/18 00:00 97.4 58 14 149/79 (102) 93 Nasal Cannula 2.00 05/15/18 22:56 93 Nasal Cannula 1.00 05/15/18 20:00 Nasal Cannula 2.00 05/15/18 19:14 97.7 68 16 145/81 (102) 96 05/15/18 19:00 56 05/15/18 18:56 91 Room Air 05/15/18 18:56 Nasal Cannula 2.00 05/15/18 15:43 97.5 56 16 142/80 (100) 93 Room Air 05/15/18 14:55 91 Room Air 05/15/18 13:16 70 05/15/18 12:00 98.2 62 18 158/78 (104) 93 Room Air 05/15/18 10:48 91 Room Air 05/15/18 08:00 96.9 79 20 144/66 (92) 94 Room Air 05/15/18 08:00 Nasal Cannula 2.00 I & O 05/16/18 07:00 Intake Total 1730 ml Output Total 900 ml Balance 830 ml Height & Weight Height: 5'4.50" Weight: 263lbs. 5.0oz. 119.131111hk; 44.5 BMI Method:Stated General Appearance: No Apparent Distress HEENT: PERRL/EOMI, Pharynx Normal Neck: Full Range of Motion, Normal Inspection, Non Tender, Supple Respiratory: Chest Non Tender, No Accessory Muscle Use, No Respiratory Distress , Decreased Breath Sounds, Wheezing Cardiovascular: Regular Rate, Rhythm, No Edema, No JVD, No Murmur Capillary Refill: Less Than 3 Seconds Gastrointestinal: normal bowel sounds, non tender, soft Extremity: Normal Capillary Refill, No Pedal Edema Neurologic/Psychiatric: Alert, Oriented x3 Skin: Normal Color, Warm/Dry Lymphatic: No Adenopathy Results Lab Laboratory Tests 05/15/18 05:40 05/16/18 05:40 Assessment/Plan Assessment/Plan AsthmaAE - xopenex secondary to albuterol intolerance -Oxygen -Heliox PRN -Solumedrol 40 IV Q6 -gentle hydration -Check respiratory viral panel, and aspergillus abx Tremors/anxiety - secondary to steroids and albuterol - Ativan IV PRN Metabolic lactic acidosis ( CO2 on chem is 19) - probably secondary to dehydration and albuterol -Monitor Obesity with SKYLER -PT is usually compliant with CPAP however secondary to acute illness she is unable to use it currently BRITTON GARZA DO May 16, 2018 07:41
[2018-05-16 08:00] VITALS: BP 189/84
[2018-05-16] MEDS: LORATADINE (CLARITIN) 10 MG TAB PO SCH (09:01)
[2018-05-16] MEDS: BENZONATATE 100 MG (TESSALON) CAPSULE PO SCH ×3 (09:01→21:12)
[2018-05-16] MEDS: guaiFENesin (MUCINEX) 600 MG TAB PO SCH ×2 (09:01→21:12)
[2018-05-16] MEDS: RIVAROXABAN 20 MG TABLET (XARELTO) PO SCH (09:01)
[2018-05-16] MEDS: meTOprolol TARTRATE 50 MG (LOPRESSOR) TAB PO SCH ×2 (09:02→21:12)
[2018-05-16] MEDS: AZITHROMYCIN 250 MG TAB (ZITHROMAX) PO SCH (09:02)
[2018-05-16] MEDS: FLUTICASONE NASAL SPRAY (FLONASE) 16 GM BTL NS SCH (09:05)
[2018-05-16] MEDS: SALINE NASAL SPRAY (OCEAN) 45 ML BTL SCH ×2 (09:05→21:12)
[2018-05-16 12:00] VITALS: BP 148/67
[2018-05-16] MEDS: diphenhydrAMINE 25 MG TAB (BENADRYL) PO PRN (14:40)
[2018-05-16] MEDS: NS IV 1000 ML 1,000 ML IV SCH (14:40)
[2018-05-16 16:00] VITALS: BP 158/72
[2018-05-16] MEDS: FAMOTIDINE 20MG/2ML IV (PEPCID) IVP SCH ×2 (17:31→21:11)
[2018-05-16 20:26] VITALS: BP 165/85
[2018-05-16] MEDS: DOCUSATE SODIUM 100 MG (COLACE) CAP PO PRN (21:12)
[2018-05-16] MEDS: MONTELUKAST 10 MG (SINGULAIR) TAB PO SCH (21:12)
[2018-05-17] VITALS (7 sets, daily range): BP systolic 138–188; BP diastolic 67–81
[2018-05-17] MEDS: methylPREDNISolone 40 MG/ML (Solu-MEDROL) VIAL IV SCH ×5 (00:18→23:39)
[2018-05-17] MEDS: RT-LEVALBUTEROL (XOPENEX) 1.25 MG/3 ML NEB NON-FORMULARY INH SCH ×6 (02:44→22:02)
[2018-05-17] MEDS: LORazepam INJ 2 MG/ML (ATIVAN) VIAL IVP PRN ×2 (02:53→21:36)
[2018-05-17] MEDS: RT-BUDESONIDE NEBS 0.5 MG/2ML (PULMICORT) AMP INH SCH ×2 (07:05→19:02)
[2018-05-17] MEDS: UMECLIDINIUM BROMIDE (INCRUSE ELLIPTA) 7'S IH SCH (07:05)
--- NOTE | 2018-05-17 07:31 | Pulmonary Progress Note ---
Subjective Time Seen by a Provider: 08:16 Subjective/Events-last exam Appears to be doing better. Currently sitting in chair. Persistent nonproductive cough. c/o of edema toño in hands Sepsis Event Evaluation Height, Weight, BMI Height: 5'4.50" Weight: 263lbs. 5.0oz. 119.849670yy; 44.5 BMI Method:Stated Focused Exam Lactate Level 05/15/18 05:40: Lactic Acid Level 1.88 Exam Exam Vital Signs Date Time Temp Pulse Resp B/P (MAP) Pulse Ox O2 Delivery O2 Flow Rate FiO2 05/17/18 07:06 98 Nasal Cannula 1.50 05/17/18 04:12 97.8 50 16 143/81 (101) 96 Room Air 05/17/18 02:45 96 Nasal Cannula 2.00 05/17/18 01:00 50 05/17/18 00:20 97.8 51 16 150/67 (94) 95 Room Air 05/16/18 22:42 95 Nasal Cannula 2.00 05/16/18 20:26 98.6 60 18 165/85 (111) 93 Room Air 05/16/18 19:50 Nasal Cannula 2.00 05/16/18 19:08 Room Air 05/16/18 19:04 96 Room Air 05/16/18 19:00 57 05/16/18 16:00 98.2 62 18 158/72 (100) 96 Nasal Cannula 2.00 05/16/18 14:43 97 Nasal Cannula 2.00 05/16/18 12:00 50 05/16/18 12:00 98.0 54 18 148/67 (94) 95 Nasal Cannula 2.00 05/16/18 08:55 Room Air 05/16/18 08:00 97.2 59 20 189/84 (119) 91 Room Air I & O 05/17/18 07:00 Intake Total 3960 ml Output Total 3400 ml Balance 560 ml Height & Weight Height: 5'4.50" Weight: 263lbs. 5.0oz. 119.201885xh; 44.5 BMI Method:Stated General Appearance: No Apparent Distress HEENT: PERRL/EOMI, Pharynx Normal Neck: Full Range of Motion, Normal Inspection, Non Tender, Supple Respiratory: Chest Non Tender, No Accessory Muscle Use, No Respiratory Distress , Decreased Breath Sounds, Wheezing Cardiovascular: Regular Rate, Rhythm, No Edema, No JVD, No Murmur Capillary Refill: Less Than 3 Seconds Gastrointestinal: normal bowel sounds, non tender, soft Extremity: Normal Capillary Refill, No Pedal Edema Neurologic/Psychiatric: Alert, Oriented x3 Skin: Normal Color, Warm/Dry Lymphatic: No Adenopathy Results Lab Laboratory Tests 05/16/18 05:40 Assessment/Plan Assessment/Plan AsthmaAE - xopenex secondary to albuterol intolerance -Oxygen -Solumedrol 40 IV Q6 -gentle hydration -Check respiratory viral panel, and aspergillus abx edema -Will give lasix x 1 -IVF were SL yesterday Tremors/anxiety - secondary to steroids and albuterol - Ativan IV PRN Metabolic lactic acidosis ( CO2 on chem is 19) - probably secondary to dehydration and albuterol -Monitor Obesity with SKYLER -PT is usually compliant with CPAP however secondary to acute illness she is unable to use it currently BRITTON GARZA DO May 17, 2018 07:31
[2018-05-17] MEDS: RIVAROXABAN 20 MG TABLET (XARELTO) PO SCH (08:01)
[2018-05-17] MEDS: LORATADINE (CLARITIN) 10 MG TAB PO SCH (08:01)
[2018-05-17] MEDS: FAMOTIDINE 20MG/2ML IV (PEPCID) IVP SCH ×2 (08:01→21:36)
[2018-05-17] MEDS: BENZONATATE 100 MG (TESSALON) CAPSULE PO SCH ×3 (08:01→21:36)
[2018-05-17] MEDS: AZITHROMYCIN 250 MG TAB (ZITHROMAX) PO SCH (08:01)
[2018-05-17] MEDS: DOCUSATE SODIUM 100 MG (COLACE) CAP PO PRN (08:01)
[2018-05-17] MEDS: guaiFENesin (MUCINEX) 600 MG TAB PO SCH ×2 (08:02→21:36)
[2018-05-17] MEDS: meTOprolol TARTRATE 50 MG (LOPRESSOR) TAB PO SCH ×2 (08:02→21:42)
[2018-05-17] MEDS: FLUTICASONE NASAL SPRAY (FLONASE) 16 GM BTL NS SCH (08:06)
[2018-05-17] MEDS: SALINE NASAL SPRAY (OCEAN) 45 ML BTL SCH ×2 (08:06→21:37)
[2018-05-17] MEDS ORDERED: FUROSEMIDE 40 MG/4 ML INJ (LASIX) IVP NR (08:30)
[2018-05-17] MEDS ORDERED: KCL 20 MEQ TAB (K-DUR) PO NR (08:30)
[2018-05-17] MEDS: diphenhydrAMINE 25 MG TAB (BENADRYL) PO PRN (12:06)
[2018-05-17] MEDS: ONDANSETRON 4 MG/2 ML (SDV) Z0FRAN IVP PRN (14:45)
[2018-05-17] MEDS: SUCRALFATE 1 GM (CARAFATE) TAB PO PRN ×2 (14:45→22:02)
[2018-05-17] MEDS ORDERED: cloNIDine 0.1 MG (CATAPRES) TAB PO PRN (19:00)
[2018-05-17] MEDS ORDERED: cloNIDine 0.1 MG (CATAPRES) TAB PO NR (19:00)
[2018-05-17] MEDS: MONTELUKAST 10 MG (SINGULAIR) TAB PO SCH (21:36)
[2018-05-18] MEDS: RT-LEVALBUTEROL (XOPENEX) 1.25 MG/3 ML NEB NON-FORMULARY INH SCH ×6 (01:34→22:52)
[2018-05-18] MEDS: SUCRALFATE 1 GM (CARAFATE) TAB PO PRN ×2 (05:46→22:59)
[2018-05-18] MEDS: methylPREDNISolone 40 MG/ML (Solu-MEDROL) VIAL IV SCH ×4 (05:47→23:02)
[2018-05-18 05:53] VITALS: BP 165/93
[2018-05-18] MEDS: guaiFENesin (MUCINEX) 600 MG TAB PO SCH ×2 (08:22→19:57)
[2018-05-18] MEDS: FAMOTIDINE 20MG/2ML IV (PEPCID) IVP SCH (08:22)
[2018-05-18] MEDS: BENZONATATE 100 MG (TESSALON) CAPSULE PO SCH ×3 (08:22→19:56)
[2018-05-18] MEDS: AZITHROMYCIN 250 MG TAB (ZITHROMAX) PO SCH (08:22)
[2018-05-18] MEDS: LORATADINE (CLARITIN) 10 MG TAB PO SCH (08:22)
[2018-05-18] MEDS: RIVAROXABAN 20 MG TABLET (XARELTO) PO SCH (08:22)
[2018-05-18] MEDS: FLUTICASONE NASAL SPRAY (FLONASE) 16 GM BTL NS SCH (08:27)
[2018-05-18] MEDS: SALINE NASAL SPRAY (OCEAN) 45 ML BTL SCH ×2 (08:27→19:57)
[2018-05-18] MEDS: UMECLIDINIUM BROMIDE (INCRUSE ELLIPTA) 7'S IH SCH (08:28)
[2018-05-18] MEDS: meTOprolol TARTRATE 50 MG (LOPRESSOR) TAB PO SCH ×2 (08:52→19:57)
--- NOTE | 2018-05-18 09:27 | Pulmonary Progress Note ---
Sepsis Event Evaluation Height, Weight, BMI Height: 5'4.50" Weight: 263lbs. 5.0oz. 119.175751vj; 44.5 BMI Method:Stated Exam Exam Vital Signs Date Time Temp Pulse Resp B/P (MAP) Pulse Ox O2 Delivery O2 Flow Rate FiO2 05/18/18 08:20 Room Air 05/18/18 07:11 92 Room Air 05/18/18 07:00 58 05/18/18 05:53 98.2 58 18 165/93 (117) 92 Room Air 05/18/18 01:34 93 Room Air 05/17/18 23:37 99.0 54 16 138/68 (91) 91 Room Air 05/17/18 22:02 93 Room Air 05/17/18 20:00 97.9 63 20 171/77 (108) 94 Room Air 05/17/18 19:40 Room Air 05/17/18 19:05 96 Room Air 05/17/18 19:00 66 05/17/18 16:00 98.2 57 18 188/75 (112) 95 Room Air 05/17/18 14:37 93 Room Air 05/17/18 12:00 98.5 68 18 173/72 (105) 95 Room Air 05/17/18 11:01 96 Room Air I & O 05/18/18 07:00 Intake Total 3540 ml Output Total 6150 ml Balance -2610 ml Height & Weight Height: 5'4.50" Weight: 263lbs. 5.0oz. 119.047181em; 44.5 BMI Method:Stated General Appearance: No Apparent Distress HEENT: PERRL/EOMI, Pharynx Normal Neck: Full Range of Motion, Normal Inspection, Non Tender, Supple Respiratory: Chest Non Tender, No Accessory Muscle Use, No Respiratory Distress , Decreased Breath Sounds, Wheezing Cardiovascular: Regular Rate, Rhythm, No Edema, No JVD, No Murmur Capillary Refill: Less Than 3 Seconds Gastrointestinal: normal bowel sounds, non tender, soft Extremity: Normal Capillary Refill, No Pedal Edema Neurologic/Psychiatric: Alert, Oriented x3 Skin: Normal Color, Warm/Dry Lymphatic: No Adenopathy Assessment/Plan Assessment/Plan AsthmaAE - xopenex secondary to albuterol intolerance -Oxygen -Solumedrol 40 IV Q6 -- change to prednisone taper -gentle hydration -Check respiratory viral panel, and aspergillus abx Tremors/anxiety - secondary to steroids and albuterol - Ativan IV PRN Metabolic lactic acidosis ( CO2 on chem is 19) - probably secondary to dehydration and albuterol -Monitor Obesity with SKYLER -PT is usually compliant with CPAP however secondary to acute illness she is unable to use it currently BRITTON GARZA DO May 18, 2018 09:27
--- NOTE | 2018-05-18 10:21 | Consultation-Cardiology ---
HPI-Cardiology Cardiology Consultation: Date of Consultation 05/18/18 Time Seen by a Provider: 09:50 Date of Admission 05-13-18 Attending Physician Shashank Godfrey DO Admitting Physician Lacy Do MD Consulting Physician Jeffrey Buck MD HPI: Chief Complaint: Uncontrolled hypertension Ms. Do is a 67 year old female admitted to [facility] d/t acute exacerbation of asthma which is being managed by pulmonary services. She is currently sitting up in a chair at the bedside. She reports she feels her breathing has improved. No c/o CP, palpitations, syncope or near syncope. She reports her blood pressure has not been controlled. She has not been using her CPAP during hospitalization d/t her SOB. Review of Systems-Cardiology Review of Systems Constitutional: No chills, No fever; malaise Eyes: No vision change Ears/Nose/Throat: No epistaxis, No recent hearing loss Respiratory: As described under HPI Cardiovascular: As described under HPI Gastrointestinal: No constipation, No diarrhea, No nausea, No vomiting Genitourinary: No dysuria Musculoskeletal: no symptoms reported Skin: No rash, No ulcerations Psychiatric/Neurological: No seizure, No focal weakness, No syncope Hematologic: No bleeding abnormalities CZZ-Ffvads-Pashcq Hx Patient Social History Alcohol Use: Denies Use Recreational Drug Use: No 2nd Hand Smoke Exposure: No Recent Foreign Travel: No Recent Infectious Disease Expo: No Physical Abuse Screen: No Sexual Abuse: No Immunizations Up To Date Date of Pneumonia Vaccine: Dec 09, 2016 Date of Influenza Vaccine: Nov 02, 2018 Past Medical History PMH As described under Assessment. Family Medical History Family History: FH: COPD (chronic obstructive pulmonary disease) 19 MOTHER Kidney disease 19 MOTHER Allergies and Home Medications Allergies Coded Allergies: apixaban (Verified Allergy, Severe, HIVES, 05/12/18) olmesartan (Verified Allergy, Severe, HIVES, 05/12/18) doxycycline (Verified Allergy, Intermediate, HIVES, 05/12/18) SWELLING, HIVES Penicillins (Verified Allergy, Unknown, PT CAN TAKE KEFLEX, 05/12/18) Sulfa (Sulfonamide Antibiotics) (Verified Allergy, Unknown, 05/12/18) Tetanus Vaccines and Toxoid (Verified Allergy, Unknown, 05/12/18) codeine (Verified Allergy, Unknown, 05/12/18) levofloxacin (Verified Allergy, Unknown, HIVES, 05/12/18) CAN TAKE LONG SHE ALSO TAKES BENADRYL morphine (Verified Allergy, Unknown, 05/12/18) Home Medications Albuterol Sulfate 1 Puff Puff, 2 PUFF INH Q4H PRN for SHORTNESS OF BREATH, ( Reported) 1 PUFF = 90 MCG Alprazolam 0.25 Mg Tablet, 0.25 MG PO BID, (Reported) Dextromethorphn/Acetaminoph/Cp 1 Each Tablet, 2 TAB PO Q4H PRN for FLU LIKE SYMPTOMS, (Reported) Diphenhydramine HCl 25 Mg Tablet, 25 MG PO DAILY PRN for WHEN TAKING LEVOFLOXACIN, (Reported) Fluticasone/Vilanterol 1 Each Blst.w.dev, 1 PUFF INH DAILY, (Reported) Guaifenesin 600 Mg Tab.er.12h, 600 MG PO Q12H PRN for CONGESTION, (Reported) Ipratropium/Albuterol Sulfate 3 Ml Ampul.neb, 3 ML NEB Q6H PRN for SHORTNESS OF BREATH, (Reported) Levofloxacin 500 Mg Tablet, 500 MG PO DAILY, (Reported) 7 DAY SUPPLY FILLED 05-07-18 Loratadine 10 Mg Tablet, 10 MG PO DAILY PRN for ALLERGIES, (Reported) Metoprolol Tartrate 50 Mg Tablet, 25 MG PO BID, (Reported) TAKES 1/2 (50MG) TABLET Oseltamivir Phosphate 75 Mg Capsule, 75 MG PO BID, (Reported) 5 DAY THERAPY FILLED 05-10-18 Polymyxin B Sulf/Trimethoprim 10 Ml Drops, 1 DROP OD QID, (Reported) Potassium Chloride 10 Meq Capsule.er, 10 MEQ PO BID, (Reported) Prednisolone Acetate 5 Ml Drops.susp, 1 DROP OD QID, (Reported) Rivaroxaban 20 Mg Tablet, 20 MG PO DAILY, (Reported) LAST FILLED #30 02-14-18 Sucralfate 1 Gm Tablet, 1 GM PO ACHS PRN for INDIGESTION, (Reported) Tiotropium [place] 1 Inh Aerp, 1 CAP IH DAILY, (Reported) Tramadol HCl 50 Mg Tablet, 50 MG PO Q6H PRN for PAIN-MODERATE, (Reported) Zafirlukast 20 Mg Tablet, 20 MG PO BID, (Reported) Patient Home Medication List Home Medication List Reviewed: Yes Physical Exam-Cardiology Physical Exam Vital Signs/I&O 05/19/18 05/20/18 05/20/18 05/20/18 23:04 00:00 01:00 02:34 Temp 97.4 Pulse 74 54 Resp 18 B/P (MAP) 153/70 (97) Pulse Ox 98 96 97 O2 Delivery NIV CPAP Room Air NIV CPAP O2 Flow Rate 2.00 2.00 05/20/18 05/20/18 05/20/18 05/20/18 03:03 07:00 07:46 07:53 Temp 97.3 Pulse 75 60 Resp 20 B/P (MAP) 155/77 (103) Pulse Ox 96 98 98 O2 Delivery Room Air Nasal Cannula Nasal Cannula O2 Flow Rate 2.00 2.00 05/20/18 08:00 Temp 97.6 Pulse 72 Resp 20 B/P (MAP) 110/67 (81) Pulse Ox 91 O2 Delivery Room Air 05/20/18 00:00 Intake Total 1660 ml Output Total 1550 ml Balance 110 ml Capillary Refill : Less Than 3 Seconds Constitutional: AAO x 3, well-developed, well-nourished HEENT: PERRL, hearing is well preserved, oral hygience is good Neck: No carotid bruit; carotid pulses are 2 + bilaterally Respiratory: No accessory muscle use, No respiratory distress; chest expansion is symmetric, chest is bilaterally symmetric, lungs clear to auscultation Cardiovascular: regular rate-rhythm; No JVD; S1 and S2 Gastrointestinal: No tender; soft, round, audible bowel sounds Extremities: no lower extremity edema bilateral Neurologic/Psychiatric: grossly intact, power is 5/5 both on sides Skin: No rash, No ulcerations Data Review Labs Microbiology 05/12/18 Gram Stain - Final, Complete 05/12/18 Sputum Culture - Final, Complete Usual upper respiratory mars Radiology NAME: EDILMA DO MED REC#: [id number] PT STATUS: ADM IN : 1950 PHYSICIAN: SHASHANK GODFREY DO ADMIT DATE: 05/13/18 Signed Date of Exam: 05/14/18 CHEST 1 VIEW, AP/PA ONLY INDICATION: Shortness of breath. Comparison is made with prior study from 05/13/2018. FINDINGS: Patient is status post previous sternotomy. Cardiac size unchanged. Mediastinal contour is stable. Central pulmonary vascularity appears normal. There is no focal alveolar infiltrate or consolidation demonstrated or findings of significant effusion. There is no pneumothorax. IMPRESSION: 1. Stable radiographic appearance of the chest. No acute cardiopulmonary process evident. Dictated by: Dictated on workstation # [id number] Dict: 05/14/18 0827 Trans: 05/14/18 1154 Interpreted by: SHARMILA LLANES MD Electronically signed by: SHARMILA LLANES MD 05/14/18 1154 A/P-Cardiology Assessment/Admission Diagnosis Uncontrolled HTN Acute exacerbation of asthma - management per pulmonary services H/O Palpitations: Ambulatory cardiac monitoring form 04/09/16 to 04/23/16 showed brief runs of SVT (total 25 in 2 weeks, but each lasting only a few secs, and no a fib) Bilat leg swelling likely related to venous insuff Intolerant to ARB (presumably also ERIN-inhib) due to allergy, and amlodipine due to ankle swelling Chest discomfort of undetermined etiology, currently controlled. No evidence of cor ischemia or infarction on MPI of 12/18/14; LVEF was 79% CAD. 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 Last cardiac cath was on 08/08/09 that showed anomalous LCX with a widely paten SVG to its prox portion; rest of the cors did not exhibit any significant CAD; LVEF was 60% S/p lap band surgery for obesity Obesity with BMI approx 44 PAF, followed by Dr Toth of EPS at [facility] H/o chronic asymptomatic sinus anna, currently stable Chronic anticoag for stroke prophylaxis. Intolerance/allergy to Eliquis. Currently on Xarelto Echo of June 2011 is reported to have shown normal LVEF (60%), mild MR & TR and PASP 30 mmHg Chronic mild ankle swelling, intermittent H/o hyperlipidemia, but unable to take statins due to muscle discomfort Obstructive sleep apnea, treated with CPAP - management per pulmonary services H/o splenic artery aneurysm, measuring 1 cm, chronically calcified, first diagnosed in 2011, for which she has received a vascular surgical eval by Dr Vernon and was advised conservative management CT abdomen and pelvis of 12/07/14: There is mild diffuse fatty change of the liver; There is a lap band present as described above; No additional significant abnormality is seen. Discussion and Recomendations Uncontrolled hypertension with chronic asymptomatic sinus bradycardia. She has intolerances to ERIN, ARB and amlodipine in the past d/t intolerances as noted above We will add doxazosin for BP contol We will stop the Clonidine since it can contribute to worsening of her chronic bradycardia Continue ASA an Xarelto Monitor lab Further recs will be based on her hospital course We would like to thank medical/pulmonary services for this consult Clinical Quality Measures DVT/VTE Risk/Contraindication: Risk Factor Score Per Nursin RFS Level Per Nursing on Admit: 3=High CURTIS ANDREWS May 18, 2018 10:21
[2018-05-18] MEDS ORDERED: doxAzosin 4 MG (CARDURA) TAB PO NR (10:30)
[2018-05-18] MEDS: RT-BUDESONIDE NEBS 0.5 MG/2ML (PULMICORT) AMP INH SCH ×2 (11:07→18:58)
[2018-05-18 12:46] VITALS: BP 135/63
[2018-05-18] MEDS: LORazepam INJ 2 MG/ML (ATIVAN) VIAL IVP PRN (13:09)
--- NOTE | 2018-05-18 13:11 | Consultation-Cardiology ---
HPI-Cardiology Cardiology Consultation: Date of Consultation 05/18/18 Time Seen by a Provider: 09:50 Date of Admission Attending Physician Shashank Godfrey DO Admitting Physician Lacy Do MD Consulting Physician JUVE DANIELSON MD, MA, FACP, FACC, FSCAI, CCDS HPI: Chief Complaint: Reason for consultation: Uncontrolled hypertension Ms. Do is a 67 year old female admitted to [facility] d/t acute exacerbation of asthma which is being managed by pulmonary services. She is currently sitting up in a chair at the bedside. She reports she feels her breathing has improved. No c/o CP, palpitations, syncope or near syncope. She reports her blood pressure has not been controlled. She has not been using her CPAP during hospitalization d/t her SOB. Review of Systems-Cardiology Review of Systems Constitutional: No chills, No fever; malaise Eyes: No vision change Ears/Nose/Throat: No epistaxis, No recent hearing loss Respiratory: As described under HPI Cardiovascular: As described under HPI Gastrointestinal: No constipation, No diarrhea, No nausea, No vomiting Genitourinary: No dysuria Musculoskeletal: no symptoms reported Skin: No rash, No ulcerations Psychiatric/Neurological: No seizure, No focal weakness, No syncope Hematologic: No bleeding abnormalities WNN-Wpsgpi-Ngeavs Hx Patient Social History Alcohol Use: Denies Use Recreational Drug Use: No 2nd Hand Smoke Exposure: No Recent Foreign Travel: No Recent Infectious Disease Expo: No Physical Abuse Screen: No Sexual Abuse: No Immunizations Up To Date Date of Pneumonia Vaccine: Dec 09, 2016 Date of Influenza Vaccine: Nov 02, 2018 Past Medical History PMH As described under Assessment. Family Medical History Family History: FH: COPD (chronic obstructive pulmonary disease) 19 MOTHER Kidney disease 19 MOTHER Allergies and Home Medications Allergies Coded Allergies: apixaban (Verified Allergy, Severe, HIVES, 05/12/18) olmesartan (Verified Allergy, Severe, HIVES, 05/12/18) doxycycline (Verified Allergy, Intermediate, HIVES, 05/12/18) SWELLING, HIVES Penicillins (Verified Allergy, Unknown, PT CAN TAKE KEFLEX, 05/12/18) Sulfa (Sulfonamide Antibiotics) (Verified Allergy, Unknown, 05/12/18) Tetanus Vaccines and Toxoid (Verified Allergy, Unknown, 05/12/18) codeine (Verified Allergy, Unknown, 05/12/18) levofloxacin (Verified Allergy, Unknown, HIVES, 05/12/18) CAN TAKE LONG SHE ALSO TAKES BENADRYL morphine (Verified Allergy, Unknown, 05/12/18) Home Medications Albuterol Sulfate 1 Puff Puff, 2 PUFF INH Q4H PRN for SHORTNESS OF BREATH, ( Reported) 1 PUFF = 90 MCG Alprazolam 0.25 Mg Tablet, 0.25 MG PO BID, (Reported) Dextromethorphn/Acetaminoph/Cp 1 Each Tablet, 2 TAB PO Q4H PRN for FLU LIKE SYMPTOMS, (Reported) Diphenhydramine HCl 25 Mg Tablet, 25 MG PO DAILY PRN for WHEN TAKING LEVOFLOXACIN, (Reported) Fluticasone/Vilanterol 1 Each Blst.w.dev, 1 PUFF INH DAILY, (Reported) Guaifenesin 600 Mg Tab.er.12h, 600 MG PO Q12H PRN for CONGESTION, (Reported) Ipratropium/Albuterol Sulfate 3 Ml Ampul.neb, 3 ML NEB Q6H PRN for SHORTNESS OF BREATH, (Reported) Levofloxacin 500 Mg Tablet, 500 MG PO DAILY, (Reported) 7 DAY SUPPLY FILLED 05-07-18 Loratadine 10 Mg Tablet, 10 MG PO DAILY PRN for ALLERGIES, (Reported) Metoprolol Tartrate 50 Mg Tablet, 25 MG PO BID, (Reported) TAKES 1/2 (50MG) TABLET Oseltamivir Phosphate 75 Mg Capsule, 75 MG PO BID, (Reported) 5 DAY THERAPY FILLED 05-10-18 Polymyxin B Sulf/Trimethoprim 10 Ml Drops, 1 DROP OD QID, (Reported) Potassium Chloride 10 Meq Capsule.er, 10 MEQ PO BID, (Reported) Prednisolone Acetate 5 Ml Drops.susp, 1 DROP OD QID, (Reported) Rivaroxaban 20 Mg Tablet, 20 MG PO DAILY, (Reported) LAST FILLED #30 02-14-18 Sucralfate 1 Gm Tablet, 1 GM PO ACHS PRN for INDIGESTION, (Reported) Tiotropium [place] 1 Inh Aerp, 1 CAP IH DAILY, (Reported) Tramadol HCl 50 Mg Tablet, 50 MG PO Q6H PRN for PAIN-MODERATE, (Reported) Zafirlukast 20 Mg Tablet, 20 MG PO BID, (Reported) Patient Home Medication List Home Medication List Reviewed: Yes Physical Exam-Cardiology Physical Exam Vital Signs/I&O 05/18/18 05/18/18 05/18/18 05/18/18 01:34 05:53 07:00 07:11 Temp 98.2 Pulse 58 58 Resp 18 B/P (MAP) 165/93 (117) Pulse Ox 93 92 92 O2 Delivery Room Air Room Air Room Air 05/18/18 05/18/18 05/18/18 05/18/18 08:20 11:07 11:09 12:46 Temp 97.4 Pulse 77 Resp 18 B/P (MAP) 135/63 (87) Pulse Ox 96 96 92 O2 Delivery Room Air Room Air Room Air Room Air 05/18/18 12:56 Pulse 79 05/18/18 00:00 Intake Total 2940 ml Output Total 5350 ml Balance -2410 ml Capillary Refill : Less Than 3 Seconds Constitutional: AAO x 3, well-developed, well-nourished HEENT: PERRL, hearing is well preserved, oral hygience is good Neck: No carotid bruit; carotid pulses are 2 + bilaterally Respiratory: No accessory muscle use, No respiratory distress; chest expansion is symmetric, chest is bilaterally symmetric, lungs clear to auscultation Cardiovascular: regular rate-rhythm; No JVD; S1 and S2 Gastrointestinal: No tender; soft, round, audible bowel sounds Extremities: no lower extremity edema bilateral Neurologic/Psychiatric: grossly intact, power is 5/5 both on sides Skin: No rash, No ulcerations Data Review Labs Microbiology 05/12/18 Gram Stain - Final, Complete 05/12/18 Sputum Culture - Final, Complete Usual upper respiratory mars A/P-Cardiology Assessment/Admission Diagnosis Uncontrolled HTN Acute exacerbation of asthma - management per pulmonary services H/O Palpitations: Ambulatory cardiac monitoring form 04/09/16 to 04/23/16 showed brief runs of SVT (total 25 in 2 weeks, but each lasting only a few secs, and no a fib) Bilat leg swelling likely related to venous insuff Intolerant to ARB (presumably also ERIN-inhib) due to allergy, and amlodipine due to ankle swelling Chest discomfort of undetermined etiology, currently controlled. No evidence of cor ischemia or infarction on MPI of 12/18/14; LVEF was 79% CAD. 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 Last cardiac cath was on 6/24/10 that showed anomalous LCX with a widely paten SVG to its prox portion; rest of the cors did not exhibit any significant CAD; LVEF was 60% S/p lap band surgery for obesity Obesity with BMI approx 44 PAF, followed by Dr Toth of EPS at [facility] H/o chronic asymptomatic sinus anna, currently stable Chronic anticoag for stroke prophylaxis. Intolerance/allergy to Eliquis. Currently on Xarelto Echo of June 2011 is reported to have shown normal LVEF (60%), mild MR & TR and PASP 30 mmHg Chronic mild ankle swelling, intermittent H/o hyperlipidemia, but unable to take statins due to muscle discomfort Obstructive sleep apnea, treated with CPAP - management per pulmonary services H/o splenic artery aneurysm, measuring 1 cm, chronically calcified, first diagnosed in 2011, for which she has received a vascular surgical eval by Dr Vernon and was advised conservative management CT abdomen and pelvis of 12/07/14: There is mild diffuse fatty change of the liver; There is a lap band present as described above; No additional significant abnormality is seen. Discussion and Recomendations Uncontrolled hypertension with chronic asymptomatic sinus bradycardia. She has intolerances to ERIN, ARB and amlodipine in the past d/t intolerances as noted above We will add doxazosin for BP contol We will stop the Clonidine since it can contribute to worsening of her chronic bradycardia Continue ASA and Xarelto Monitor lab Further recs will be based on her hospital course We would like to thank medical/pulmonary services for this consult Clinical Quality Measures DVT/VTE Risk/Contraindication: Risk Factor Score Per Nursin RFS Level Per Nursing on Admit: 3=High JUVE DANIELSON MD FACP [facility] CCDS May 18, 2018 13:11
[2018-05-18 16:00] VITALS: BP 131/61
[2018-05-18 19:55] VITALS: BP 168/89
[2018-05-18] MEDS: doxAzosin 4 MG (CARDURA) TAB PO SCH (19:57)
[2018-05-18] MEDS: MONTELUKAST 10 MG (SINGULAIR) TAB PO SCH (19:57)
[2018-05-18] MEDS: FAMOTIDINE 20 MG (PEPCID) TABLET PO SCH (19:57)
[2018-05-19 00:48] VITALS: BP 187/78
[2018-05-19] MEDS: RT-LEVALBUTEROL (XOPENEX) 1.25 MG/3 ML NEB NON-FORMULARY INH SCH ×6 (03:01→23:04)
[2018-05-19 04:00] VITALS: BP 162/91
[2018-05-19] MEDS: methylPREDNISolone 40 MG/ML (Solu-MEDROL) VIAL IV SCH (05:23)
[2018-05-19 06:38] LABS: ALANINE AMINOTRANSFERASE 23 U/L (0-55); ALBUMIN 3.2 GM/DL (3.2-4.5); ALKALINE PHOSPHATASE 97 U/L (40-136); BILIRUBIN,TOTAL 0.4 MG/DL (0.1-1.0); BUN/CREATININE RATIO 22; CALCIUM 8.8 MG/DL (8.5-10.1); CARBON DIOXIDE 25 MMOL/L (21-32); CHLORIDE 102 MMOL/L (98-107); CREATININE SERUM 0.85 MG/DL (0.60-1.30); GFR ESTIMATED > 60; GLUCOSE 161 MG/DL (70-105); MAGNESIUM 2.4 MG/DL (1.8-2.4); POTASSIUM 3.9 MMOL/L (3.6-5.0); SODIUM 138 MMOL/L (135-145); TOTAL PROTEIN 5.7 GM/DL (6.4-8.2)
[2018-05-19] MEDS: RT-BUDESONIDE NEBS 0.5 MG/2ML (PULMICORT) AMP INH SCH ×2 (07:40→19:15)
[2018-05-19] MEDS: UMECLIDINIUM BROMIDE (INCRUSE ELLIPTA) 7'S IH SCH (07:40)
[2018-05-19 08:32] VITALS: BP 161/68
[2018-05-19] MEDS ORDERED: predniSONE 10 MG TAB PO SCH (09:00)
[2018-05-19] MEDS: FAMOTIDINE 20 MG (PEPCID) TABLET PO SCH ×2 (09:38→21:06)
[2018-05-19] MEDS: meTOprolol TARTRATE 50 MG (LOPRESSOR) TAB PO SCH ×2 (09:38→21:07)
[2018-05-19] MEDS: LORATADINE (CLARITIN) 10 MG TAB PO SCH (09:45)
[2018-05-19] MEDS: RIVAROXABAN 20 MG TABLET (XARELTO) PO SCH (09:45)
[2018-05-19] MEDS: guaiFENesin (MUCINEX) 600 MG TAB PO SCH ×2 (09:45→21:06)
[2018-05-19] MEDS: doxAzosin 4 MG (CARDURA) TAB PO SCH ×2 (09:46→21:07)
[2018-05-19] MEDS: BENZONATATE 100 MG (TESSALON) CAPSULE PO SCH ×3 (09:46→21:07)
[2018-05-19] MEDS: AZITHROMYCIN 250 MG TAB (ZITHROMAX) PO SCH (09:46)
[2018-05-19] MEDS: LORazepam INJ 2 MG/ML (ATIVAN) VIAL IVP PRN ×2 (09:53→14:25)
[2018-05-19] MEDS: FLUTICASONE NASAL SPRAY (FLONASE) 16 GM BTL NS SCH (10:38)
[2018-05-19] MEDS: SALINE NASAL SPRAY (OCEAN) 45 ML BTL SCH ×2 (10:38→21:06)
--- NOTE | 2018-05-19 10:44 | Pulmonary Progress Note ---
Subjective Time Seen by a Provider: 11:48 Subjective/Events-last exam SOB/wheezing is much improved. Sepsis Event Evaluation Height, Weight, BMI Height: 5'4.50" Weight: 263lbs. 5.0oz. 119.690311tn; 44.5 BMI Method:Stated Exam Exam Vital Signs Date Time Temp Pulse Resp B/P (MAP) Pulse Ox O2 Delivery O2 Flow Rate FiO2 05/19/18 08:32 98.8 81 20 161/68 (99) 93 Room Air 05/19/18 07:58 76 05/19/18 07:42 94 Room Air 05/19/18 07:41 94 Room Air 05/19/18 04:00 97.9 69 20 162/91 (114) 92 Room Air 05/19/18 03:02 97 Room Air 05/19/18 01:00 66 05/19/18 00:48 97.5 75 20 187/78 (114) 95 Room Air 05/18/18 22:52 94 Room Air 05/18/18 20:00 Room Air 05/18/18 19:55 98.2 100 20 168/89 (115) 95 Room Air 05/18/18 19:04 93 Room Air 05/18/18 18:59 93 Room Air 05/18/18 18:59 86 05/18/18 16:00 98.0 72 20 131/61 (84) 93 Room Air 05/18/18 15:02 93 Room Air 05/18/18 12:56 79 05/18/18 12:46 97.4 77 18 135/63 (87) 92 Room Air 05/18/18 11:09 96 Room Air 05/18/18 11:07 96 Room Air I & O 05/19/18 07:00 Intake Total 1740 ml Output Total 1400 ml Balance 340 ml Height & Weight Height: 5'4.50" Weight: 263lbs. 5.0oz. 119.141100op; 44.5 BMI Method:Stated General Appearance: No Apparent Distress, Anxious, Mild Distress HEENT: PERRL/EOMI, Pharynx Normal Neck: Full Range of Motion, Normal Inspection, Non Tender, Supple Respiratory: Chest Non Tender, No Accessory Muscle Use, No Respiratory Distress , Decreased Breath Sounds, Wheezing Cardiovascular: Regular Rate, Rhythm, No Edema, No JVD, No Murmur Capillary Refill: Less Than 3 Seconds Gastrointestinal: normal bowel sounds, non tender, soft Extremity: Normal Capillary Refill, No Pedal Edema Neurologic/Psychiatric: Alert, Oriented x3 Skin: Normal Color, Warm/Dry Lymphatic: No Adenopathy Results Lab Laboratory Tests 05/19/18 05:50 Assessment/Plan Assessment/Plan AsthmaAE-- much improved - xopenex secondary to albuterol intolerance -Currently on RA -prednisone taper - Pt appears very anxious this is partially secondary to prednisone. Will decrease dose to 20mg daily for now -Check respiratory viral panel, and aspergillus abx Tremors/anxiety - secondary to steroids and albuterol - Ativan IV PRN Obesity with SKYLER -PT is usually compliant with CPAP however secondary to acute illness she is unable to use it currently -Have family bring in home CPAP machine. HTN -Management per Cardiology -Dr. Buck is increasing BP meds Will plan for discharge in AM if ok with cardiology and BP controlled. BRITTON GARZA DO May 19, 2018 10:44
[2018-05-19 16:02] VITALS: BP 171/92
--- NOTE | 2018-05-19 17:13 | Progress Note-Cardiology ---
Cardiology SOAP Progress Note Subjective: Concerned and tearful over elevated bp No cp or palp or syncope Objective: I&O/Vital Signs 05/19/18 05/19/18 05/19/18 05/19/18 07:41 07:42 07:58 08:00 Pulse 76 Pulse Ox 94 94 O2 Delivery Room Air Room Air Room Air 05/19/18 05/19/18 05/19/18 08:32 10:59 16:02 Temp 98.8 97.3 Pulse 81 65 Resp 20 22 B/P (MAP) 161/68 (99) 171/92 (118) Pulse Ox 93 95 93 O2 Delivery Room Air Room Air Room Air 05/19/18 00:00 Intake Total 1140 ml Output Total 600 ml Balance 540 ml Weight (Pounds): 263 Weight (Ounces): 5.0 Weight (Calculated Kilograms): 119.698602 Constitutional: AAO x 3, well-developed, well-nourished Respiratory: No accessory muscle use, No respiratory distress; chest expansion is symmetric, chest is bilaterally symmetric, lungs clear to auscultation Cardiovascular: regular rate-rhythm; No JVD; S1 and S2 Gastrointestional: No tender; soft, round, audible bowel sounds Extremities: no lower extremity edema bilateral Neurologic/Psychiatric: grossly intact, power is 5/5 both on sides Skin: No rash, No ulcerations Results/Procedures: Labs Laboratory Tests 05/19/18 05:50: Sodium Level 138, Potassium Level 3.9, Chloride Level 102, Carbon Dioxide Level 25, Anion Gap 11, Blood Urea Nitrogen 19H, Creatinine 0.85, Estimat Glomerular Filtration Rate > 60, BUN/Creatinine Ratio 22, Glucose Level 161H, Calcium Level 8.8, Corrected Calcium 9.4, Magnesium Level 2.4, Total Bilirubin 0.4, Aspartate Amino Transf (AST/SGOT) 12, Alanine Aminotransferase (ALT/SGPT) 23, Alkaline Phosphatase 97, Total Protein 5.7L, Albumin 3.2, Thyroid Stimulating Hormone (TSH) 0.24L Microbiology 05/12/18 Gram Stain - Final, Complete 05/12/18 Sputum Culture - Final, Complete Usual upper respiratory mars Laboratory Tests 05/19/18 05:50 A/P: Assessment: Uncontrolled HTN Acute exacerbation of asthma - management per pulmonary services H/O Palpitations: Ambulatory cardiac monitoring form 04/09/16 to 04/23/16 showed brief runs of SVT (total 25 in 2 weeks, but each lasting only a few secs, and no a fib) Bilat leg swelling likely related to venous insuff Intolerant to ARB (presumably also ERIN-inhib) due to allergy, and amlodipine due to ankle swelling Chest discomfort of undetermined etiology, currently controlled. No evidence of cor ischemia or infarction on MPI of 12/18/14; LVEF was 79% CAD. 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 Last cardiac cath was on 08/08/09 that showed anomalous LCX with a widely paten SVG to its prox portion; rest of the cors did not exhibit any significant CAD; LVEF was 60% S/p lap band surgery for obesity Obesity with BMI approx 44 PAF, followed by Dr Toth of EPS at [facility] H/o chronic asymptomatic sinus anna, currently stable Chronic anticoag for stroke prophylaxis. Intolerance/allergy to Eliquis. Currently on Xarelto Echo of June 2011 is reported to have shown normal LVEF (60%), mild MR & TR and PASP 30 mmHg Chronic mild ankle swelling, intermittent H/o hyperlipidemia, but unable to take statins due to muscle discomfort Obstructive sleep apnea, treated with CPAP - management per pulmonary services H/o splenic artery aneurysm, measuring 1 cm, chronically calcified, first diagnosed in 2011, for which she has received a vascular surgical eval by Dr Vernon and was advised conservative management CT abdomen and pelvis of 12/07/14: There is mild diffuse fatty change of the liver; There is a lap band present as described above; No additional significant abnormality is seen. Plan: Increase doxazosin to 4 mg bid Continue beta-broderick Add ARB, if above prove inadequate Continue to monitor JUVE DANIELSON MD FACP [facility] CCDS May 19, 2018 17:13
[2018-05-19 19:34] VITALS: BP 143/81
[2018-05-19] MEDS: MONTELUKAST 10 MG (SINGULAIR) TAB PO SCH (21:06)
--- NOTE | 2018-05-19 23:00 | NUR ---
This RN offered pt an HS dose of Ativan to assist with rest. Pt stated that she would like to receive her breathing treatment first, but if she is awake afterwards then she would take the dose.
--- NOTE | 2018-05-19 23:30 | NUR ---
This RN checked on pt. Resting comfortably in bed with eyes closed. Ativan dose to be held until pt requests or anxiety increases.
[2018-05-20] VITALS: BP 153/70
[2018-05-20] MEDS: RT-LEVALBUTEROL (XOPENEX) 1.25 MG/3 ML NEB NON-FORMULARY INH SCH ×6 (02:34→22:07)
--- NOTE | 2018-05-20 03:00 | NUR ---
Pt resting with eyes closed in bed after breathing treatment.
[2018-05-20 03:03] VITALS: BP 155/77
[2018-05-20] MEDS: predniSONE 20 MG TAB PO SCH (06:10)
[2018-05-20] MEDS: RT-BUDESONIDE NEBS 0.5 MG/2ML (PULMICORT) AMP INH SCH ×2 (07:44→22:07)
[2018-05-20 08:00] VITALS: BP 110/67
[2018-05-20] MEDS: guaiFENesin (MUCINEX) 600 MG TAB PO SCH ×2 (08:25→21:59)
[2018-05-20] MEDS: SALINE NASAL SPRAY (OCEAN) 45 ML BTL SCH ×2 (08:25→22:00)
[2018-05-20] MEDS: meTOprolol TARTRATE 50 MG (LOPRESSOR) TAB PO SCH ×2 (08:27→22:00)
[2018-05-20] MEDS: FAMOTIDINE 20 MG (PEPCID) TABLET PO SCH ×2 (08:27→22:00)
[2018-05-20] MEDS: BENZONATATE 100 MG (TESSALON) CAPSULE PO SCH ×3 (08:27→22:00)
[2018-05-20] MEDS: LORATADINE (CLARITIN) 10 MG TAB PO SCH (08:27)
[2018-05-20] MEDS: doxAzosin 4 MG (CARDURA) TAB PO SCH ×2 (08:28→22:00)
[2018-05-20] MEDS: RIVAROXABAN 20 MG TABLET (XARELTO) PO SCH (08:28)
[2018-05-20] MEDS: FLUTICASONE NASAL SPRAY (FLONASE) 16 GM BTL NS SCH (08:29)
--- NOTE | 2018-05-20 09:29 | Progress Note-Cardiology ---
Cardiology SOAP Progress Note Subjective: Sitting up in a chair at the bedside. States she got up to use the BR this morning and felt weak, dizzy, sweaty and nauseated. Is back to the chair at the bedside, but continues to feel weak. BP 105 systolic this morning. She feels her breathing is better today. No c/o CP or palpitations. C/O abdominal cramping this morning. No c/o diarrhea or constipation. Objective: I&O/Vital Signs 05/20/18 05/20/18 05/20/18 05/20/18 07:00 07:46 07:53 08:00 Temp 97.6 Pulse 60 72 Resp 20 B/P (MAP) 110/67 (81) Pulse Ox 98 98 91 O2 Delivery Nasal Cannula Nasal Cannula Room Air O2 Flow Rate 2.00 2.00 05/20/18 05/20/18 05/20/18 05/20/18 08:00 11:11 12:00 12:52 Temp 98.0 Pulse 63 54 Resp 20 B/P (MAP) 138/60 (86) Pulse Ox 96 93 O2 Delivery Room Air Nasal Cannula Room Air O2 Flow Rate 2.00 05/20/18 15:15 Pulse Ox 97 O2 Delivery Nasal Cannula O2 Flow Rate 2.00 05/20/18 00:00 Intake Total 1660 ml Output Total 1550 ml Balance 110 ml Weight (Pounds): 263 Weight (Ounces): 5.0 Weight (Calculated Kilograms): 119.735936 Constitutional: AAO x 3, well-developed, well-nourished Respiratory: No accessory muscle use, No respiratory distress; chest expansion is symmetric, chest is bilaterally symmetric, lungs clear to auscultation Cardiovascular: regular rate-rhythm; No JVD; S1 and S2 Gastrointestional: No tender; soft, round, audible bowel sounds Extremities: no lower extremity edema bilateral Neurologic/Psychiatric: grossly intact, power is 5/5 both on sides Skin: No rash, No ulcerations Results/Procedures: Labs Microbiology 05/12/18 Gram Stain - Final, Complete 05/12/18 Sputum Culture - Final, Complete Usual upper respiratory mars A/P: Assessment: Uncontrolled HTN - improved with adjustments in medications, but now somewhat low BP (especially with posture changes) Acute exacerbation of asthma - management per pulmonary services H/O Palpitations: Ambulatory cardiac monitoring form 04/09/16 to 04/23/16 showed brief runs of SVT (total 25 in 2 weeks, but each lasting only a few secs, and no a fib) Bilat leg swelling likely related to venous insuff Intolerant to ARB (presumably also ERIN-inhib) due to allergy, and amlodipine due to ankle swelling Chest discomfort of undetermined etiology, currently controlled. No evidence of cor ischemia or infarction on MPI of 12/18/14; LVEF was 79% CAD. 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 Last cardiac cath was on 08/08/09 that showed anomalous LCX with a widely paten SVG to its prox portion; rest of the cors did not exhibit any significant CAD; LVEF was 60% S/p lap band surgery for obesity Obesity with BMI approx 44 PAF, followed by Dr Toth of EPS at [facility] H/o chronic asymptomatic sinus anna, currently stable Chronic anticoag for stroke prophylaxis. Intolerance/allergy to Eliquis. Currently on Xarelto Echo of June 2011 is reported to have shown normal LVEF (60%), mild MR & TR and PASP 30 mmHg Chronic mild ankle swelling, intermittent H/o hyperlipidemia, but unable to take statins due to muscle discomfort Obstructive sleep apnea, treated with CPAP - management per pulmonary services H/o splenic artery aneurysm, measuring 1 cm, chronically calcified, first diagnosed in 2011, for which she has received a vascular surgical eval by Dr Vernon and was advised conservative management CT abdomen and pelvis of 12/07/14: There is mild diffuse fatty change of the liver; There is a lap band present as described above; No additional significant abnormality is seen. Plan: BP improved, but now somewhat low BP with which she feels unwell - we will reduce dose and monitor closely Continue beta-broderick Continue to monitor Physician Assessment Physician Assessment No cp or palp or syncope. Shortness of breath has improved since admission SBP approx 105 when walking to the bathroom this am Lungs: clear Cor: reg Ext: no c/c/e A&R * As documented in out note above that I updated (italics) and as noted below * Reduce doxazosin to 2 mg po bid CURTIS ANDREWS [employer] May 20, 2018 09:29 JUVE DANIELSON MD [facility] May 20, 2018 16:25
--- NOTE | 2018-05-20 10:41 | Pulmonary Progress Note ---
Sepsis Event Evaluation Height, Weight, BMI Height: 5'4.50" Weight: 263lbs. 5.0oz. 119.601521la; 44.5 BMI Method:Stated Exam Exam Vital Signs Date Time Temp Pulse Resp B/P (MAP) Pulse Ox O2 Delivery O2 Flow Rate FiO2 05/20/18 08:00 97.6 72 20 110/67 (81) 91 Room Air 05/20/18 07:53 98 Nasal Cannula 2.00 05/20/18 07:46 98 Nasal Cannula 2.00 05/20/18 07:00 60 05/20/18 03:03 97.3 75 20 155/77 (103) 96 Room Air 05/20/18 02:34 97 NIV CPAP 2.00 05/20/18 01:00 54 05/20/18 00:00 97.4 74 18 153/70 (97) 96 Room Air 05/19/18 23:04 98 NIV CPAP 2.00 05/19/18 20:00 Room Air 05/19/18 19:34 97.3 76 22 143/81 (101) 98 Room Air 05/19/18 19:15 89 Room Air 05/19/18 19:15 98 Room Air 05/19/18 19:00 84 05/19/18 16:02 97.3 65 22 171/92 (118) 93 Room Air 05/19/18 10:59 95 Room Air I & O 05/20/18 07:00 Intake Total 1810 ml Output Total 1850 ml Balance -40 ml Height & Weight Height: 5'4.50" Weight: 263lbs. 5.0oz. 119.265338hx; 44.5 BMI Method:Stated General Appearance: No Apparent Distress, Anxious, Mild Distress HEENT: PERRL/EOMI, Pharynx Normal Neck: Full Range of Motion, Normal Inspection, Non Tender, Supple Respiratory: Chest Non Tender, No Accessory Muscle Use, No Respiratory Distress , Decreased Breath Sounds, Wheezing Cardiovascular: Regular Rate, Rhythm, No Edema, No JVD, No Murmur Capillary Refill: Less Than 3 Seconds Gastrointestinal: normal bowel sounds, non tender, soft Extremity: Normal Capillary Refill, No Pedal Edema Neurologic/Psychiatric: Alert, Oriented x3 Skin: Normal Color, Warm/Dry Lymphatic: No Adenopathy Results Lab Laboratory Tests 05/19/18 05:50 Assessment/Plan Assessment/Plan AsthmaAE-- much improved - xopenex secondary to albuterol intolerance -Currently on RA -prednisone taper - Pt appears very anxious this is partially secondary to prednisone. Will decrease dose to 20mg daily for now -Check respiratory viral panel, and aspergillus abx Tremors/anxiety - secondary to steroids and albuterol - Ativan IV PRN Obesity with SKYLER -PT is usually compliant with CPAP however secondary to acute illness she is unable to use it currently -Have family bring in home CPAP machine. HTN -Management per Cardiology -Dr. Buck is increasing BP meds Will plan for discharge today if ok with cardiology. BRITTON GARZA DO May 20, 2018 10:41
[2018-05-20 12:00] VITALS: BP 138/60
[2018-05-20] MEDS: UMECLIDINIUM BROMIDE (INCRUSE ELLIPTA) 7'S IH SCH (13:27)
[2018-05-20 16:15] VITALS: BP 130/63
[2018-05-20 20:45] VITALS: BP 147/68
[2018-05-20] MEDS: MONTELUKAST 10 MG (SINGULAIR) TAB PO SCH (22:00)
[2018-05-21] VITALS: BP 121/67
[2018-05-21] MEDS: RT-LEVALBUTEROL (XOPENEX) 1.25 MG/3 ML NEB NON-FORMULARY INH SCH ×2 (01:14→06:42)
[2018-05-21 04:15] VITALS: BP 162/72
[2018-05-21] MEDS: predniSONE 20 MG TAB PO SCH (05:50)
[2018-05-21] MEDS: RT-BUDESONIDE NEBS 0.5 MG/2ML (PULMICORT) AMP INH SCH (06:42)
[2018-05-21] MEDS: UMECLIDINIUM BROMIDE (INCRUSE ELLIPTA) 7'S IH SCH (06:43)
[2018-05-21 08:00] VITALS: BP 120/56
--- NOTE | 2018-05-21 09:15 | Pulmonary Progress Note ---
Sepsis Event Evaluation Height, Weight, BMI Height: 5'4.50" Weight: 263lbs. 5.0oz. 119.703853da; 44.5 BMI Method:Stated Exam Exam Vital Signs Date Time Temp Pulse Resp B/P (MAP) Pulse Ox O2 Delivery O2 Flow Rate FiO2 05/21/18 08:00 97.4 71 18 120/56 (77) 94 Room Air 05/21/18 07:00 69 05/21/18 06:45 97 Nasal Cannula 2.00 05/21/18 06:44 97 Nasal Cannula 2.00 05/21/18 04:15 97.8 66 20 162/72 (102) 96 Room Air 05/21/18 01:14 95 Nasal Cannula 2.00 05/21/18 01:00 59 05/21/18 00:00 97.4 54 20 121/67 (85) 97 NIV CPAP 2.00 05/20/18 22:12 Nasal Cannula 2.00 05/20/18 22:07 96 Nasal Cannula 2.00 05/20/18 20:45 98.4 73 18 147/68 (94) 96 Room Air 05/20/18 20:00 95 Room Air 05/20/18 19:00 72 05/20/18 18:45 93 Nasal Cannula 2.00 05/20/18 16:15 98.0 60 18 130/63 (85) 93 Nasal Cannula 2.00 05/20/18 15:15 97 Nasal Cannula 2.00 05/20/18 12:52 54 05/20/18 12:00 98.0 63 20 138/60 (86) 93 Room Air 05/20/18 11:11 96 Nasal Cannula 2.00 I & O 05/21/18 07:00 Intake Total 1040 ml Balance 1040 ml Height & Weight Height: 5'4.50" Weight: 263lbs. 5.0oz. 119.050830rf; 44.5 BMI Method:Stated General Appearance: No Apparent Distress, Anxious, Mild Distress HEENT: PERRL/EOMI, Pharynx Normal Neck: Full Range of Motion, Normal Inspection, Non Tender, Supple Respiratory: Chest Non Tender, No Accessory Muscle Use, No Respiratory Distress , Decreased Breath Sounds, Wheezing Cardiovascular: Regular Rate, Rhythm, No Edema, No JVD, No Murmur Capillary Refill: Less Than 3 Seconds Gastrointestinal: normal bowel sounds, non tender, soft Extremity: Normal Capillary Refill, No Pedal Edema Neurologic/Psychiatric: Alert, Oriented x3 Skin: Normal Color, Warm/Dry Lymphatic: No Adenopathy Assessment/Plan Assessment/Plan AsthmaAE-- much improved - xopenex secondary to albuterol intolerance -Currently on RA -prednisone currently 20mg daily -- decrease to 10mg daily -Check respiratory viral panel, and aspergillus abx Tremors/anxiety - secondary to steroids and albuterol - Ativan IV PRN Obesity with SKYLER -PT is usually compliant with CPAP however secondary to acute illness she is unable to use it currently -Have family bring in home CPAP machine. HTN -Management per Cardiology -Dr. Buck is increasing BP meds Will plan for discharge when ok with cardiology. BRITTON GARZA DO May 21, 2018 09:15
[2018-05-21] MEDS: doxAzosin 4 MG (CARDURA) TAB PO SCH (09:19)
[2018-05-21] MEDS: LORATADINE (CLARITIN) 10 MG TAB PO SCH (09:20)
[2018-05-21] MEDS: meTOprolol TARTRATE 50 MG (LOPRESSOR) TAB PO SCH (09:20)
[2018-05-21] MEDS: guaiFENesin (MUCINEX) 600 MG TAB PO SCH (09:21)
[2018-05-21] MEDS: BENZONATATE 100 MG (TESSALON) CAPSULE PO SCH (09:22)
[2018-05-21] MEDS: RIVAROXABAN 20 MG TABLET (XARELTO) PO SCH (09:22)
[2018-05-21] MEDS: FAMOTIDINE 20 MG (PEPCID) TABLET PO SCH (09:22)
[2018-05-21] MEDS: FLUTICASONE NASAL SPRAY (FLONASE) 16 GM BTL NS SCH (09:23)
[2018-05-21] MEDS: SALINE NASAL SPRAY (OCEAN) 45 ML BTL SCH (09:23)
[2018-05-21] MEDS ORDERED: DOXA4TAB2 PO (09:27)
[2018-05-21] MEDS ORDERED: LEVA1.2543 INH (09:27)
[2018-05-21] MEDS ORDERED: PRD20T PO (09:27)
[2018-05-21] MEDS ORDERED: MONT10TA24 PO (09:43)
--- NOTE | 2018-05-21 10:26 | NUR ---
PT WAS EXERCISE WITHOUT OXYGEN FOR 6 MIN SATS DROPPED TO 92% AND LEVELED THERE THEN CAME BACK UP TO 96% 2 MIN AFTER TEST ON ROOM AIR. Addendum: 05/21/18 at 1026 by KATE PA RT Amended: Links added.
--- NOTE | 2018-05-21 13:05 | Progress Note-Cardiology ---
Cardiology SOAP Progress Note Subjective: Feels better today Wishes to go home No cp or palp or syncope Shortness of breath improved compared to time of admission Objective: I&O/Vital Signs 05/21/18 05/21/18 05/21/18 05/21/18 01:14 04:15 06:44 06:45 Temp 97.8 Pulse 66 Resp 20 B/P (MAP) 162/72 (102) Pulse Ox 95 96 97 97 O2 Delivery Nasal Cannula Room Air Nasal Cannula Nasal Cannula O2 Flow Rate 2.00 2.00 2.00 05/21/18 05/21/18 05/21/18 07:00 08:00 08:00 Temp 97.4 Pulse 69 71 Resp 18 B/P (MAP) 120/56 (77) Pulse Ox 94 O2 Delivery Room Air Room Air 05/21/18 00:00 Intake Total 640 ml Balance 640 ml Weight (Pounds): 263 Weight (Ounces): 5.0 Weight (Calculated Kilograms): 119.970510 Constitutional: AAO x 3, well-developed, well-nourished Respiratory: No accessory muscle use, No respiratory distress; chest expansion is symmetric, chest is bilaterally symmetric, lungs clear to auscultation Cardiovascular: regular rate-rhythm; No JVD; S1 and S2 Gastrointestional: No tender; soft, round, audible bowel sounds Extremities: no lower extremity edema bilateral Neurologic/Psychiatric: grossly intact, power is 5/5 both on sides Skin: No rash, No ulcerations Results/Procedures: Labs Microbiology 05/12/18 Gram Stain - Final, Complete 05/12/18 Sputum Culture - Final, Complete Usual upper respiratory mars A/P: Assessment: Uncontrolled HTN - improved with adjustments in medication Acute exacerbation of asthma - management per pulmonary services H/O Palpitations: Ambulatory cardiac monitoring form 04/09/16 to 04/23/16 showed brief runs of SVT (total 25 in 2 weeks, but each lasting only a few secs, and no a fib) Bilat leg swelling likely related to venous insuff Intolerant to ARB (presumably also ERIN-inhib) due to allergy, and amlodipine due to ankle swelling Chest discomfort of undetermined etiology, currently controlled. No evidence of cor ischemia or infarction on MPI of 12/18/14; LVEF was 79% CAD. 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 Last cardiac cath was on 08/08/09 that showed anomalous LCX with a widely paten SVG to its prox portion; rest of the cors did not exhibit any significant CAD; LVEF was 60% S/p lap band surgery for obesity Obesity with BMI approx 44 PAF, followed by Dr Toth of EPS at [facility] H/o chronic asymptomatic sinus anna, currently stable Chronic anticoag for stroke prophylaxis. Intolerance/allergy to Eliquis. Currently on Xarelto Echo of June 2011 is reported to have shown normal LVEF (60%), mild MR & TR and PASP 30 mmHg Chronic mild ankle swelling, intermittent H/o hyperlipidemia, but unable to take statins due to muscle discomfort Obstructive sleep apnea, treated with CPAP - management per pulmonary services H/o splenic artery aneurysm, measuring 1 cm, chronically calcified, first diagnosed in 2011, for which she has received a vascular surgical eval by Dr Vernon and was advised conservative management CT abdomen and pelvis of 12/07/14: There is mild diffuse fatty change of the liver; There is a lap band present as described above; No additional significant abnormality is seen. Plan: BP improved Continue current regimen F/u as outpt JUVE DANIELSON MD FACP [facility] CCDS May 21, 2018 13:05
[2018-05-21 13:10] VITALS: BP 120/56
--- NOTE | 2018-05-21 13:10 | NUR ---
EDILMA CHAIREZ demonstrates understanding of discharge instructions and accurately returns instructions upon questioning. Copy of Post-Discharge Instructions and Medication Discharge Instructions given to patient. EDILMA CHAIREZ is able to manage continuing needs after discharge. Patients belongings returned to . Skin dry and intact; no breakdown noted. Patient discharged from [facility] on 05/21/2018 at 1310 . EDILMA CHAIREZ left floor via , accompanied by .
[2018-05-22] MEDS ORDERED: predniSONE 10 MG TAB PO SCH (07:00)
== END 2018-05-21 13:10 | disposition home or self-care (01) | DRG 202 ==
LOC: 4TH 13:56 → OBSVTOIN 05-13 19:52
PROVIDERS: ADMIT Internal Medicine Critical Care Medicine; ATTEND Internal Medicine Critical Care Medicine
DX: J45.901 Unspecified asthma with (acute) exacerbation (principal); G47.33 Obstructive sleep apnea (adult) (pediatric); E66.9 Obesity, unspecified; Z68.41 Body mass index [BMI] 40.0-44.9, adult; E87.2 Acidosis; I10 Essential (primary) hypertension; E86.0 Dehydration; G25.1 Drug-induced tremor; F41.8 Other specified anxiety disorders; M79.89 Other specified soft tissue disorders; T48.6X5A Adverse effect of antiasthmatics, initial encounter; T38.0X5A Adverse effect of glucocorticoids and synthetic analogues, initial encounter; I48.0 Paroxysmal atrial fibrillation; E78.5 Hyperlipidemia, unspecified; Z98.84 Bariatric surgery status; Z91.19 Patient's noncompliance with other medical treatment and regimen; Z88.0 Allergy status to penicillin; Z88.1 Allergy status to other antibiotic agents; Z88.5 Allergy status to narcotic agent; Z88.2 Allergy status to sulfonamides; Z88.7 Allergy status to serum and vaccine; I72.8 Aneurysm of other specified arteries; Z79.01 Long term (current) use of anticoagulants
CPT/HCPCS: 36415; 71045; 80048; 80053; 81000; 83605; 83735; 83880; 84100; 84443; 85007; 85025; 85027; 87070; 87205; 87449; 87804; 87899; 94640; 94664; 94760; 94761

== ENCOUNTER 2018-06-01 05:49 | Outpatient (CLI) | payer MEDICARE, OTHER ==
[~2018-06-01] VITALS: Ht 163.8 cm; Wt 119.4 kg
[~2018-06-01 05:49] MED LIST changes: +DEXT1TAB14 PO; +DIPH25TA65 PO; +DOXA4TAB2 PO; +FLUT1BLS INH; +GUAI-370 PO; +GUAI600T28 PO; +IPRA3AMP31 NEB; +LEVA1.2543 INH; +LEVO500T80 PO; +LORA10TA76 PO; +MONT10TA24 PO; +OSEL75CA15 PO; +PLTR10OP OD; +PRED5DRO17 OD; +RT-ALBUINH INH; +SUCR1TAB36 PO; +TIOT18CA2 IH; +ZAFI20TA13 PO
[2018-06-01] MEDS ORDERED: FURO20TA4 PO (10:46)
== END 2018-06-01 10:48 | disposition home or self-care (01) ==
LOC: PREOP 05:49
PROVIDERS: ATTEND Specialist
DX: Z01.818 Encounter for other preprocedural examination (principal)

== ENCOUNTER 2018-06-03 06:40 | Day surgery (SDC) | payer MEDICARE, OTHER ==
[~2018-06-03] VITALS: Ht 163.8 cm; Wt 119.4 kg
--- OUTSIDE RECORDS SUMMARY | 2018-06-03 06:46 | XMS REPORT | Clinical Summary ---
Author Author [facility] Organization [facility] Address Unknown Phone Unavailable Care Team Providers Care Bowling Ball Assembler Name Role Phone PCP Unavailable Allergies Not [...]
--- OUTSIDE RECORDS SUMMARY | 2018-06-03 06:46 | XMS REPORT | Clinical Summary ---
Author Author [facility] Organization [facility] Address Unknown Phone Unavailable Care Team Providers Care Surfboard Designer Name Role Phone Francisco Hernandez MD PCP Source Comments Some departments are not documenting in the electronic medical record. If you do not see the information that you expected, contact Release of Information in the Health Information Management department at [phone] for further assistance in locating additional records.[facility] Allergies Comments Active Allergy Reactions Severity Noted Date Allergy recorded in SMS: Codeine~Reactions: SWELLING/HIVES Codeine 10/20/2006 Allergy recorded in SMS: Morphine~Reactions: SWELLINGL/HIVES Morphine 10/20/2006 Allergy recorded in SMS: PCN~Reactions: TONGUE SWELLING Penicillins 10/20/2006 Allergy recorded in SMS: Tetanus Tetanus Vaccines And 10/20/2006 Toxoid Medications Not on file Active Problems Not on file Social History Date Tobacco Use Types Packs/Day Years Used Never Assessed Sex Assigned at Date Recorded Not on file Industry Job Start Date Occupation Not on file Not on file Not on file Travel End Travel History Travel Start No recent travel history available. Last Filed Vital Signs Not on file Plan of Treatment Health Maintenance Due Date Last Done Comments HEPATITIS C SCREENING 1950 PHYSICAL (COMPREHENSIVE) 1956 EXAM DTAP/TDAP VACCINES (1 - 12/04/1967 Tdap) BREAST CANCER SCREENING 1989 COLORECTAL CANCER 12/04/1999 SCREENING SHINGLES RECOMBINANT 12/04/1999 VACCINE (1 of 2) OSTEOPOROSIS 2014 SCREENING/MONITORING PNEUMONIA (PCV13/PPSV23) 2014 VACCINES (1 of 2 - PCV13) INFLUENZA VACCINE 09/15/2018 Results Not on filefrom Last 3 Months
--- OUTSIDE RECORDS SUMMARY | 2018-06-03 06:54 | XMS REPORT | CCD ---
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 Yvj271 NA 135 mEq/L 10/15/2015 Comp Metabolic Exv320 K 3.5 mEq/L 10/15/2015 Comp Metabolic Sps269 CL 100 mEq/L 10/15/2015 Comp Metabolic Cqy803 CO2 29.0 mEq/L 10/15/2015 Comp Metabolic Hzj363 ANION GAP 10 10/15/2015 Comp Metabolic Vof819 GLUCOSE 88 mg/dL 10/15/2015 Comp Metabolic Kgc383 Creat 0.9 mg/dL 10/15/2015 Comp Metabolic Zyf820 eGFR 67 ml/min/1.73m2 10/15/2015 Comp Metabolic Sji459 BUN 16 mg/dL 10/15/2015 Comp Metabolic Rcf490 B/C Ratio 17.8 Ratio 10/15/2015 Comp Metabolic Zxv197 CALCIUM 9.4 mg/dL 10/15/2015 Comp Metabolic Uxp332 ALK PHOS 96 U/L 10/15/2015 Comp Metabolic Pmp962 AST(SGOT) 15 U/L 10/15/2015 Comp Metabolic Vuh867 ALT(SGPT) -125 U/L 10/15/2015 Comp Metabolic Eyu138 BILI T 0.4 mg/dL 10/15/2015 Comp Metabolic Pzr532 ALBUMIN 4.2 g/dL 10/15/2015 Comp Metabolic Dat948 TPRO 7.2 g/dL 10/15/2015 Comp Metabolic Pqo112 GLOB 3.1 g/dL 10/15/2015 Comp Metabolic Mwz906 A/G Ratio 1.4 Ratio 10/15/2015 Comp Metabolic Yib911 Osmo 271 mOsmo 10/15/2015 Comp Metabolic Wgy181 NA 135 mEq/L 10/15/2015 Comp Metabolic Ssw836 K 3.5 mEq/L 10/15/2015 Comp Metabolic Ohw711 CL 100 mEq/L 10/15/2015 Comp Metabolic Yfs590 CO2 29.0 mEq/L 10/15/2015 Comp Metabolic Pnz902 ANION GAP 10 10/15/2015 Comp Metabolic Afb176 GLUCOSE 88 mg/dL 10/15/2015 Comp Metabolic Pbf197 Creat 0.9 mg/dL 10/15/2015 Comp Metabolic Lwt420 eGFR 67 ml/min/1.73m2 10/15/2015 Comp Metabolic Wpo837 BUN 16 mg/dL 10/15/2015 Comp Metabolic Pij723 B/C Ratio 17.8 Ratio 10/15/2015 Comp Metabolic Ixu418 CALCIUM 9.4 mg/dL 10/15/2015 Comp Metabolic Dhj685 ALK PHOS 96 U/L 10/15/2015 Comp Metabolic Unt722 AST(SGOT) 15 U/L 10/15/2015 Comp Metabolic Vxr912 ALT(SGPT) 14 U/L 10/15/2015 Comp Metabolic Heb559 BILI T 0.4 mg/dL 10/15/2015 Comp Metabolic Qrm363 ALBUMIN 4.2 g/dL 10/15/2015 Comp Metabolic Jlh122 TPRO 7.2 g/dL 10/15/2015 Comp Metabolic Uuw050 GLOB 3.1 g/dL 10/15/2015 Comp Metabolic Ted113 A/G Ratio 1.4 Ratio 10/15/2015 Comp Metabolic Ajj679 Osmo 271 mOsmo 10/15/2015 Magnesium Ord90 Mag 2.2 mg/dL 10/15/2015 Magnesium Ord90 Mag 1.9 mg/dL 09/05/2015 Comp Metabolic Aiz649 NA 138 mEq/L 09/05/2015 Comp Metabolic Eoi133 K 3.7 mEq/L 09/05/2015 Comp Metabolic Ums806 CL 99 mEq/L 09/05/2015 Comp Metabolic Zuu204 CO2 30.0 mEq/L 09/05/2015 Comp Metabolic Hzs740 ANION GAP 13 09/05/2015 Comp Metabolic Tjl963 GLUCOSE 97 mg/dL 09/05/2015 Comp Metabolic Knv345 Creat 1.1 mg/dL 09/05/2015 Comp Metabolic Pks310 eGFR 54 ml/min/1.73m2 09/05/2015 Comp Metabolic Pnn806 BUN 18 mg/dL 09/05/2015 Comp Metabolic Twx915 B/C Ratio 16.7 Ratio 09/05/2015 Comp Metabolic Cgk180 CALCIUM 9.6 mg/dL 09/05/2015 Comp Metabolic Can653 ALK PHOS 96 U/L 09/05/2015 Comp Metabolic Fpi801 AST(SGOT) 15 U/L 09/05/2015 Comp Metabolic Jdq460 ALT(SGPT) 14 U/L 09/05/2015 Comp Metabolic Mcl792 BILI T 0.5 mg/dL 09/05/2015 Comp Metabolic Jqx904 ALBUMIN 4.1 g/dL 09/05/2015 Comp Metabolic Swc580 TPRO 7.0 g/dL 09/05/2015 Comp Metabolic Dxo574 GLOB 3.0 g/dL 09/05/2015 Comp Metabolic Tgt345 A/G Ratio 1.4 Ratio 09/05/2015 Comp Metabolic Jpq055 Osmo 277 mOsmo 09/05/2015 Vitamin D 25 Oh Izz2762 VITAMIN D, 25 HYDROXY 22.39 ng/mL Magnesium Ord90 Mag 2.0 mg/dL 06/11/2015 Tsh Ord6 hTSH II 3.52 uIU/mL 06/11/2015 Comp Metabolic Pfu949 NA 135 mEq/L 06/11/2015 Comp Metabolic Fbp707 K 4.3 mEq/L 06/11/2015 Comp Metabolic Ooz312 CL 103 mEq/L 06/11/2015 Comp Metabolic Wiw972 CO2 25.0 mEq/L 06/11/2015 Comp Metabolic Dct207 ANION GAP 11 06/11/2015 Comp Metabolic Kjr091 GLUCOSE 75 mg/dL 06/11/2015 Comp Metabolic Anm430 Creat 0.9 mg/dL 06/11/2015 Comp Metabolic Mjp648 eGFR 69 ml/min/1.73m2 06/11/2015 Comp Metabolic Ysk877 BUN 22 mg/dL 06/11/2015 Comp Metabolic Xzx935 B/C Ratio 25.3 Ratio 06/11/2015 Comp Metabolic Wcx842 CALCIUM 9.2 mg/dL 06/11/2015 Comp Metabolic Ppj791 ALK PHOS 88 U/L 06/11/2015 Comp Metabolic Iyz976 AST(SGOT) 13 U/L 06/11/2015 Comp Metabolic Oqt064 ALT(SGPT) 15 U/L 06/11/2015 Comp Metabolic Iea939 BILI T 0.4 mg/dL 06/11/2015 Comp Metabolic Wdt877 ALBUMIN 3.7 g/dL 06/11/2015 Comp Metabolic Lwf729 TPRO 6.6 g/dL 06/11/2015 Comp Metabolic Shi937 GLOB 2.9 g/dL 06/11/2015 Comp Metabolic Sxm404 A/G Ratio 1.3 Ratio 06/11/2015 Comp Metabolic Qqi872 Osmo 272 mOsmo 06/11/2015 Free T4 Tvp124 FREE T4 0.95 ng/dL 06/11/2015 Cbc With Differential Ord2 WBC 11.66 K/ul 06/11/2015 Cbc With Differential Ord2 RBC 4.34 M/ul 06/11/2015 Cbc With Differential Ord2 HGB 13.6 g/dl 06/11/2015 Cbc With Differential Ord2 HCT 41.5 % 06/11/2015 Cbc With Differential Ord2 Neut% 69.6 % 06/11/2015 Cbc With Differential Ord2 MCV 95.6 fl 06/11/2015 Cbc With Differential Ord2 Lymph% 22.0 % 06/11/2015 Cbc With Differential Ord2 MCH 31.3 pg 06/11/2015 Cbc With Differential Ord2 Bracken% 7.4 % 06/11/2015 Cbc With Differential Ord2 MCHC 32.8 pg 06/11/2015 Cbc With Differential Ord2 Eos% 0.7 % 06/11/2015 Cbc With Differential Ord2 PLT 224 K/ul 06/11/2015 Cbc With Differential Ord2 Baso% 0.3 % 06/11/2015 Cbc With Differential Ord2 RDW 12.8 % 06/11/2015 Cbc With Differential Ord2 Neut ABS# 8.11 K/ul 06/11/2015 Cbc With Differential Ord2 Lymph ABS# 2.57 K/ul 06/11/2015 Cbc With Differential Ord2 Bracken ABS# 0.9 K/ul 06/11/2015 Cbc With Differential [...] 13.8 % 11/16/2014 Vitamin D 25 Oh [id number] VITAMIN D, 25 HYDROXY 22.85 ng/mL Lipid Ord30 CHOL 206 mg/dL 11/16/2014 Lipid Ord30 HDL 49.0 mg/dl 11/16/2014 Lipid Ord30 TRIG 104 mg/dL 11/16/2014 Lipid Ord30 LDL 136 mg/dL 11/16/2014 Lipid Ord30 C/HDL 4.2 Ratio 11/16/2014 Tsh Ord6 hTSH II 2.05 uIU/mL 11/16/2014 Comp Metabolic Ttb615 NA 138 mEq/L 11/16/2014 Comp Metabolic Vkn730 K 4.0 mEq/L 11/16/2014 Comp Metabolic Ros353 CL 104 mEq/L 11/16/2014 Comp Metabolic Cxm435 CO2 27.0 mEq/L 11/16/2014 Comp Metabolic Jry780 ANION GAP 11 11/16/2014 Comp Metabolic Jrt969 GLUCOSE 94 mg/dL 11/16/2014 Comp Metabolic Sfx573 Creat 0.9 mg/dL 11/16/2014 Comp Metabolic Qos386 eGFR 64 ml/min/1.73m2 11/16/2014 Comp Metabolic Odg569 BUN 12 mg/dL 11/16/2014 Comp Metabolic Xlb118 B/C Ratio 12.9 Ratio 11/16/2014 Comp Metabolic Dpg612 CALCIUM 9.4 mg/dL 11/16/2014 Comp Metabolic Tgx699 ALK PHOS 88 U/L 11/16/2014 Comp Metabolic Uhs026 AST(SGOT) 14 U/L 11/16/2014 Comp Metabolic Vso314 ALT(SGPT) 12 U/L 11/16/2014 Comp Metabolic Bkz307 BILI T 0.6 mg/dL 11/16/2014 Comp Metabolic Tmk315 ALBUMIN 3.7 g/dL 11/16/2014 Comp Metabolic Mvw075 TPRO 6.3 g/dL 11/16/2014 Comp Metabolic Giz971 GLOB 2.6 g/dL 11/16/2014 Comp Metabolic Zkv945 A/G Ratio 1.4 Ratio 11/16/2014 Comp Metabolic Iwd494 Osmo 275 mOsmo 11/16/2014 %Hba1C Zms504 % HbA1c 46248-8 5.7 % 11/16/2014 %Hba1C Xll151 Gluc Ave 117 mg/dL 11/16/2014 GFR CALC 8380512 GFR AA >60 ML/MIN 04/12/2013 GFR CALC 2263322 GFR NON-AA >60 ML/MIN 04/12/2013 TSH 3443086 TSH 2.194 uIU/ML 04/12/2013 VIT B 12 1723693 VIT B 12 415 PG/ML 04/12/2013 CBC 8745438 WBC 8.8 10e9/L 04/12/2013 CBC 2747850 RBC 4.59 10e12/L 04/12/2013 CBC 6812991 HGB 14.3 g/dL 04/12/2013 CBC 1427644 HCT DET 42.4 % 04/12/2013 CBC 5093396 MCV 92.4 fL 04/12/2013 CBC 5761280 MCH 31.2 pg 04/12/2013 CBC 1465980 MCHC 33.7 g/dL 04/12/2013 CBC 2151330 PLT 213 10e9/L 04/12/2013 CBC 4163041 MPV 12.8 fL 04/12/2013 CBC 0841608 LULU % 61.8 % 04/12/2013 CBC 6135868 LY % 29.2 % 04/12/2013 CBC 0853415 MON % 7.2 % 04/12/2013 CBC 4233723 EOS % 1.3 % 04/12/2013 CBC 1026069 BASO % 0.5 % 04/12/2013 CBC 2803038 RDW 12.6 % 04/12/2013 CBC 6853756 ABS LULU 5.44 10e9/L 04/12/2013 CBC 9937836 ABS LYMPH 2.57 10e9/L 04/12/2013 CBC 9565959 ABS MONO 0.63 10e9/L 04/12/2013 CBC 9003029 ABS EOS 0.11 10e9/L 04/12/2013 CBC 5973215 ABS BASO 0.04 10e9/L 04/12/2013 CBC 0174860 RDW-SD 41.3 fL 04/12/2013 FREE T4 2182116 FREE T4 1.09 NG/DL 04/12/2013 A1C HPLC 4495403 A1C HPLC 41975-9 5.4 % 04/12/2013 CHEM 14 1804314 AST 12 U/L 04/12/2013 CHEM 14 7108052 ALT 11 IU/L 04/12/2013 CHEM 14 1421634 BUN 14 MG/DL 04/12/2013 CHEM 14 6701453 ALBUMIN 4.1 GM/DL 04/12/2013 CHEM 14 6715552 CHLORIDE 105 MMOL/L 04/12/2013 CHEM 14 1428496 BILI TOT 0.6 MG/DL 04/12/2013 CHEM 14 3104991 ALK PHOS 81 U/L 04/12/2013 CHEM 14 4762816 SODIUM 138 MMOL/L 04/12/2013 CHEM 14 0391903 CREATININE 0.86 MG/DL 04/12/2013 CHEM 14 8346362 CALCIUM 9.8 MG/DL 04/12/2013 CHEM 14 5435295 POTASSIUM 4.1 MMOL/L 04/12/2013 CHEM 14 6871903 PROT TOT 6.6 GM/DL 04/12/2013 CHEM 14 8676787 GLUCOSE 112 MG/DL 04/12/2013 CHEM 14 8466666 BICARB 27 MMOL/L 04/12/2013 CHEM 14 8833592 ANION GAP 6 MEQ/L 04/12/2013 LIPID GRP HDL TEST 55 MG/DL 04/12/2013 LIPID GRP TRIG 107 MG/DL 04/12/2013 LIPID GRP TEST LDL 193 MG/DL 04/12/2013 LIPID GRP CHOL 269 MG/DL 04/12/2013 LIPID GRP RCHOL/HDL 4.89 RATIO 04/12/2013 NICOT QN S 8491133 NICOTIN S < 2.0 NG/ML 03/07/2012 NICOT QN S 5853809 XCOTININ S < 2.0 NG/ML 03/07/2012 CBC 0507856 WBC 8.1 10e9/L 03/02/2012 CBC 0418237 RBC 4.44 10e12/L 03/02/2012 CBC 1532980 HGB 13.8 g/dL 03/02/2012 CBC 2079316 HCT DET 41.3 % 03/02/2012 CBC 7120957 MCV 93.0 fL 03/02/2012 CBC 1339650 MCH 31.1 pg 03/02/2012 CBC 3565937 MCHC 33.4 g/dL 03/02/2012 CBC 8190530 PLT 188 10e9/L 03/02/2012 CBC 3885174 MPV 14.3 fL 03/02/2012 CBC 8877682 LULU % 61.5 % 03/02/2012 CBC 4183831 LY % 28.8 % 03/02/2012 CBC 1639445 MON % 8.0 % 03/02/2012 CBC 7263019 EOS % 1.1 % 03/02/2012 CBC 7104331 BASO % 0.6 % 03/02/2012 CBC 1090695 RDW 14.0 % 03/02/2012 CBC 4138191 ABS LULU 4.98 10e9/L 03/02/2012 CBC 5882032 ABS LYMPH 2.33 10e9/L 03/02/2012 CBC 3412622 ABS MONO 0.65 10e9/L 03/02/2012 CBC 6847891 ABS EOS 0.09 10e9/L 03/02/2012 CBC 7324783 ABS BASO 0.05 10e9/L 03/02/2012 CBC 1886200 RDW-SD 46.3 fL 03/02/2012 LIPID GRP HDL TEST 37 MG/DL 03/02/2012 LIPID GRP TRIG 136 MG/DL 03/02/2012 LIPID GRP TEST LDL 106 MG/DL 03/02/2012 LIPID GRP CHOL 170 MG/DL 03/02/2012 LIPID GRP RCHOL/HDL 4.59 RATIO 03/02/2012 GFR CALC 4982739 GFR AA >60 ML/MIN 03/02/2012 GFR CALC 5328982 GFR NON-AA >60 ML/MIN 03/02/2012 FREE T4 4926569 FREE T4 1.09 NG/DL 03/02/2012 A1C HPLC 2319176 A1C HPLC 83030-8 5.4 % 03/02/2012 CHEM 14 5948088 AST 17 U/L 03/02/2012 CHEM 14 5833153 ALT 22 IU/L 03/02/2012 CHEM 14 5306255 BUN 15 MG/DL 03/02/2012 CHEM 14 9609939 ALBUMIN 4.0 GM/DL 03/02/2012 CHEM 14 0301869 CHLORIDE 107 MMOL/L 03/02/2012 CHEM 14 5321678 BILI TOT 0.4 MG/DL 03/02/2012 CHEM 14 9697206 ALK PHOS 83 U/L 03/02/2012 CHEM 14 1787674 SODIUM 141 MMOL/L 03/02/2012 CHEM 14 8942180 CREATININE 0.86 MG/DL 03/02/2012 CHEM 14 5434738 CALCIUM 9.5 MG/DL 03/02/2012 CHEM 14 9992577 POTASSIUM 4.0 MMOL/L 03/02/2012 CHEM 14 7865556 PROT TOT 6.6 GM/DL 03/02/2012 CHEM 14 6189479 GLUCOSE 102 MG/DL 03/02/2012 CHEM 14 4023011 BICARB 28 MMOL/L 03/02/2012 CHEM 14 8711378 ANION GAP 6 MEQ/L 03/02/2012 TSH 7862663 TSH 2.320 uIU/ML 03/02/2012 GFR CALC 8735525 GFR AA >60 ML/MIN 07/03/2011 GFR CALC 5451008 GFR NON-AA 54.0L ML/MIN 07/03/2011 CHEM 14 6170317 AST 15 U/L 07/03/2011 CHEM 14 0531202 ALT 30 IU/L 07/03/2011 CHEM 14 4319973 BUN 19 MG/DL 07/03/2011 CHEM 14 9167079 ALBUMIN 4.2 GM/DL 07/03/2011 CHEM 14 8681389 CHLORIDE 100 MMOL/L 07/03/2011 CHEM 14 4281991 BILI TOT 0.8 MG/DL 07/03/2011 CHEM 14 3488592 ALK PHOS 74 U/L 07/03/2011 CHEM 14 6124625 SODIUM 137 MMOL/L 07/03/2011 CHEM 14 1790823 CREATININE 1.03 MG/DL 07/03/2011 CHEM 14 7612069 CALCIUM 9.6 MG/DL 07/03/2011 CHEM 14 6802833 POTASSIUM 4.4 MMOL/L 07/03/2011 CHEM 14 8332004 PROT TOT 6.7 GM/DL 07/03/2011 CHEM 14 9962804 GLUCOSE 106 MG/DL 07/03/2011 CHEM 14 3311382 BICARB 28 MMOL/L 07/03/2011 CHEM 14 3226270 ANION GAP 9 MEQ/L 07/03/2011 URINALYSIS NONAUTO W/O SCOPE 06714 Specific [place] 1.010 DateTime(Free Text in Aprima) URINALYSIS NONAUTO W/O SCOPE 17324 PH 5 DateTime(Free Text in Aprima) URINALYSIS NONAUTO W/O SCOPE 59153 GLUCOSE neg DateTime( Free Text in Aprima) URINALYSIS NONAUTO W/O SCOPE 81168 Protein neg DateTime( Free Text in Aprima) URINALYSIS NONAUTO W/O SCOPE 94030 Blood 1+ DateTime(Free Text in Apr[employer]) URINALYSIS NONAUTO W/O SCOPE 92984 Bilirubin neg DateTime(Free Text in Aprima) URINALYSIS NONAUTO W/O SCOPE 56753 Ketones neg DateTime( Free Text in Aprima) URINALYSIS NONAUTO W/O SCOPE 74927 Urobilinogen neg DateTime(Free Text in Aprima) URINALYSIS NONAUTO W/O SCOPE 63254 Nitrite neg DateTime( Free Text in Aprima) URINALYSIS NONAUTO W/O SCOPE 37523 Leukocytes neg DateTime(Free Text in Aprima) Review of Systems System Result Effective Dates Constitutional recent illness 05/09/2018 Constitutional anorexia 05/09/2018 Constitutional No night sweats 2018 Constitutional No chills 05/09/2018 Constitutional No diaphoresis 05/09/2018 Constitutional fatigue 05/09/2018 Constitutional No fever 05/09/2018 Constitutional No insomnia 05/09/2018 Constitutional No malaise 05/09/2018 Constitutional No weight loss 05/09/2018 Constitutional No weight gain 05/09/2018 Eyes No eye discharge 05/09/2018 Ears/Nose/Throat/Neck nasal allergies Ears/Nose/Throat/Neck nasal discharge Ears/Nose/Throat/Neck headache 2018 Ears/Nose/Throat/Neck sinus congestion Cardiovascular dyspnea 05/09/2018 Respiratory cough 05/09/2018 Gastrointestinal No vomiting 05/09/2018 Dermatologic No rash 05/09/2018 Respiratory chest tightness 05/09/2018 Respiratory dyspnea on exertion 2018 Respiratory wheezing 05/09/2018 Constitutional No recent illness 2018 Constitutional No anorexia 05/02/2018 Constitutional No night sweats 2018 Constitutional No chills 05/02/2018 Constitutional No diaphoresis 05/02/2018 Constitutional No fatigue 05/02/2018 Constitutional No fever 05/02/2018 Constitutional No insomnia 05/02/2018 Constitutional No malaise 05/02/2018 Constitutional No weight loss 05/02/2018 Constitutional No weight gain 05/02/2018 Eyes No eye discharge 05/02/2018 Eyes No eye erythema 05/02/2018 Ears/Nose/Throat/Neck No dizziness 2018 Ears/Nose/Throat/Neck No headache 2018 Ears/Nose/Throat/Neck nasal discharge Cardiovascular No chest pain/pressure Cardiovascular No dyspnea 05/02/2018 Cardiovascular edema 05/02/2018 Respiratory No cough 05/02/2018 Gastrointestinal No abdominal pain 2018 Gastrointestinal No constipation 2018 Gastrointestinal No diarrhea 05/02/2018 Genitourinary/Nephrology No dysuria 05/02 Musculoskeletal joint complaint 2018 Dermatologic No rash 05/02/2018 Neurologic No alteration of consciousness 05/02/2018 Psychiatric anxiety 05/02/2018 Endocrine No dry or coarse skin 2018 Constitutional No recent illness 2018 Constitutional No anorexia 03/21/2018 Constitutional fatigue 03/21/2018 Constitutional No fever 03/21/2018 Ears/Nose/Throat/Neck dizziness 2018 Ears/Nose/Throat/Neck No headache 2018 Cardiovascular No chest pain/pressure 05/2018 Respiratory pleuritic pain 03/21/2018 Respiratory No cough 03/21/2018 Gastrointestinal No vomiting 03/21/2018 Gastrointestinal nausea 03/21/2018 Gastrointestinal No abdominal pain 2018 Genitourinary/Nephrology No dysuria 03/21 Musculoskeletal joint complaint 2018 Dermatologic No rash 03/21/2018 Constitutional No recent illness 2018 Constitutional No anorexia 03/18/2018 Constitutional No night sweats 2018 Constitutional No chills 03/18/2018 Constitutional No diaphoresis 03/18/2018 Constitutional No fatigue 03/18/2018 Constitutional No fever 03/18/2018 Constitutional No insomnia 03/18/2018 Constitutional No malaise 03/18/2018 Constitutional No weight loss 03/18/2018 Constitutional No weight gain 03/18/2018 Eyes No vision change 03/18/2018 Ears/Nose/Throat/Neck No dizziness 2018 Ears/Nose/Throat/Neck No headache 2018 Cardiovascular No chest pain/pressure 02/2018 Gastrointestinal No vomiting 03/18/2018 Musculoskeletal bone pain 03/18/2018 Dermatologic laceration 03/18/2018 Ears/Nose/Throat/Neck headache 2017 Ears/Nose/Throat/Neck dizziness 2017 Constitutional No recent illness 2017 Constitutional No anorexia 01/07/2018 Constitutional No night sweats 2017 Constitutional No chills 01/07/2018 Constitutional No diaphoresis 01/07/2018 Constitutional No fever 01/07/2018 Constitutional No insomnia 01/07/2018 Constitutional No malaise 01/07/2018 Constitutional No weight loss 01/07/2018 Eyes No eye discharge 01/07/2018 Eyes No eye erythema 01/07/2018 Eyes vision change 01/07/2018 Cardiovascular No chest pain/pressure Cardiovascular edema 01/07/2018 Respiratory No cough 01/07/2018 Respiratory dyspnea on exertion 2017 Gastrointestinal No abdominal pain 2017 Gastrointestinal vomiting 01/07/2018 Genitourinary/Nephrology No dysuria 01/07 Musculoskeletal back pain 01/07/2018 Dermatologic No rash 01/07/2018 Neurologic No alteration of consciousness 01/07/2018 Psychiatric No confusion 01/07/2018 Endocrine No dry or coarse skin 2017 Cardiovascular arrhythmia 01/07/2018 Constitutional No anorexia 04/26/2017 Constitutional No recent illness 2017 Constitutional No night sweats 2017 Constitutional No chills 04/26/2017 Constitutional No diaphoresis 04/26/2017 Constitutional No fatigue 04/26/2017 Constitutional No fever 04/26/2017 Constitutional No insomnia 04/26/2017 Constitutional No malaise 04/26/2017 Constitutional weight loss 04/26/2017 Constitutional No weight gain 04/26/2017 Eyes No eye discharge 04/26/2017 Eyes No eye erythema 04/26/2017 Ears/Nose/Throat/Neck No dizziness 2017 Ears/Nose/Throat/Neck No headache 2017 Ears/Nose/Throat/Neck nasal discharge 01/2018 Cardiovascular No chest pain/pressure 01/2018 Cardiovascular No dyspnea 04/26/2017 Cardiovascular edema 04/26/2017 Respiratory No cough 04/26/2017 Gastrointestinal No abdominal pain 2017 Gastrointestinal No constipation 2017 Gastrointestinal No diarrhea 04/26/2017 Genitourinary/Nephrology No dysuria 04/26 Musculoskeletal No joint complaint 2017 Dermatologic No rash 04/26/2017 Neurologic No alteration of consciousness 04/26/2017 Psychiatric anxiety 04/26/2017 Endocrine No dry or coarse skin 2017 Constitutional No recent illness 2016 Constitutional No [...] Result Effective Dates Notes Full Exam - General Constitutional general appearance Overall: well nourished 05/09/2018 None Full Exam - General Constitutional general appearance Overall: well developed 05/09/2018 None Full Exam - General Eyes conjunctiva/ eyelids Overall: conjunctiva clear 05/09/2018 None Full Exam - General Eyes pupils and irises Overall: pupils equal, round, reactive to light and accomodation 05/09/2018 None Full Exam - General Ears/Nose/Throat otoscopic exam Overall: external auditory canals clear 05/09/2018 None Full Exam - General Ears/Nose/Throat otoscopic exam Overall: tympanic membranes clear 05/09/2018 maxillary sinus tenderness bilateral Full Exam - General Ears/Nose/Throat oral cavity/pharynx/larynx Overall: oral mucosa clear 05/09/2018 None Full Exam - General Respiratory respiratory effort/rhythm Overall: no retractions 05/09/2018 None Full Exam - General Respiratory respiratory effort/rhythm Overall: normal rate 05/09/2018 None Full Exam - General Cardiovascular auscultation of heart Overall: regular rate 05/09/2018 None Full Exam - General Cardiovascular auscultation of heart Overall: normal heart sounds 05/09/2018 None Full Exam - General Cardiovascular extremities Overall: no clubbing 05/09/2018 None Full Exam - General Abdomen abdominal exam Overall: normal bowel sounds 05/09/2018 None Full Exam - General Lymphatic neck nodes Overall: anterior cervical chain benign 05/09/2018 None Full Exam - General Lymphatic neck nodes Overall: posterior cervical chain benign 05/09/2018 None Full Exam - General Musculoskeletal digits and nails Overall: no clubbing 05/09/2018 None Full Exam - General Musculoskeletal digits and nails Overall: digits benign 05/09/2018 None Full Exam - General Neurologic cranial nerves Overall: cranial nerves 2-12 grossly intact 05/09/2018 None Full Exam - General Psychiatric orientation/consciousness Overall: oriented to person, place and time 05/09/2018 None Full Exam - Cardiology Respiratory auscultation Diffuse: expiratory wheezes 05/09/2018 None Full Exam - Cardiology Respiratory auscultation Basilar: diminished 05/09/2018 None Full Exam - General Constitutional general appearance Overall: well nourished 05/02/2018 None Full Exam - General Constitutional general appearance Overall: well developed 05/02/2018 None Full Exam - General Eyes conjunctiva/ eyelids Overall: conjunctiva clear 05/02/2018 None Full Exam - General Eyes pupils and irises Overall: pupils equal, round, reactive to light and accomodation 05/02/2018 None Full Exam - General Ears/Nose/Throat otoscopic exam Overall: external auditory canals clear 05/02/2018 None Full Exam - General Ears/Nose/Throat otoscopic exam Overall: tympanic membranes clear 05/02/2018 None Full Exam - General Ears/Nose/Throat oral cavity/pharynx/larynx Overall: oral mucosa clear 05/02/2018 None Full Exam - General Respiratory auscultation Overall: breath sounds clear bilaterally 05/02/2018 None Full Exam - General Respiratory respiratory effort/rhythm Overall: no retractions 05/02/2018 None Full Exam - General Respiratory respiratory effort/rhythm Overall: normal rate 05/02/2018 None Full Exam - General Cardiovascular auscultation of heart Overall: regular rate 05/02/2018 None Full Exam - General Cardiovascular auscultation of heart Overall: normal heart sounds 05/02/2018 None Full Exam - General Cardiovascular extremities Overall: no clubbing 05/02/2018 None Full Exam - General Cardiovascular extremities Edema present: pitting 05/02/2018 None Full Exam - General Cardiovascular extremities Edema present: severity 1+ - 4 +: trace 05/02/2018 None Full Exam - General Cardiovascular extremities Edema present: bilateral 05/02/2018 None Full Exam - General Cardiovascular extremities Edema present: to knees 05/02/2018 None Full Exam - General Abdomen abdominal exam Overall: normal bowel sounds 05/02/2018 None Full Exam - General Lymphatic neck nodes Overall: anterior cervical chain benign 05/02/2018 None Full Exam - General Lymphatic neck nodes Overall: posterior cervical chain benign 05/02/2018 None Full Exam - General Musculoskeletal digits and nails Overall: no clubbing 05/02/2018 None Full Exam - General Musculoskeletal digits and nails Overall: digits benign 05/02/2018 None Full Exam - General Neurologic cranial nerves Overall: cranial nerves 2-12 grossly intact 05/02/2018 None Full Exam - General Psychiatric orientation/consciousness Overall: oriented to person, place and time 05/02/2018 None Full Exam - General Constitutional general appearance Overall: well nourished 03/21/2018 None Full Exam - General Constitutional general appearance Overall: well developed 03/21/2018 None Full Exam - General Eyes conjunctiva/ eyelids Overall: conjunctiva clear 03/21/2018 None Full Exam - General Eyes pupils and irises Overall: pupils equal, round, reactive to light and accomodation 03/21/2018 None Full Exam - General Ears/Nose/Throat otoscopic exam Overall: external auditory canals clear 03/21/2018 None Full Exam - General Ears/Nose/Throat otoscopic exam Overall: tympanic membranes clear 03/21/2018 None Full Exam - General Ears/Nose/Throat oral cavity/pharynx/larynx Overall: oral mucosa clear 03/21/2018 None Full Exam - General Respiratory auscultation Overall: breath sounds clear bilaterally 03/21/2018 None Full Exam - General Respiratory respiratory effort/rhythm Overall: no retractions 03/21/2018 None Full Exam - General Respiratory respiratory effort/rhythm Overall: normal rate 03/21/2018 None Full Exam - General Cardiovascular auscultation of heart Overall: regular rate 03/21/2018 None Full Exam - General Cardiovascular auscultation of heart Overall: normal heart sounds 03/21/2018 None Full Exam - General Cardiovascular extremities Overall: no clubbing 03/21/2018 None Full Exam - General Cardiovascular extremities Edema present: pitting 03/21/2018 None Full Exam - General Cardiovascular extremities Edema present: severity 1+ - 4 +: trace 03/21/2018 None Full Exam - General Cardiovascular extremities Edema present: bilateral 03/21/2018 None Full Exam - General Cardiovascular extremities Edema present: to knees 03/21/2018 None Full Exam - General Abdomen abdominal exam Overall: normal bowel sounds 03/21/2018 None Full Exam - General Lymphatic neck nodes Overall: anterior cervical chain benign 03/21/2018 None Full Exam - General Lymphatic neck nodes Overall: posterior cervical chain benign 03/21/2018 None Full Exam - Cardiology Integument inspection/palpation Location: left arm 03/21/2018 None Full Exam - Cardiology Integument inspection/palpation Location: right arm 03/21/2018 skin tears bilateral elbows with steri strips d/i and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 ABDOMEN/PELVIS DX [...] use compression socks from toes to thighs. . Chronic sinusitis- recommended pt to start [...] on symptoms, repeat labs in 2-3 months . 1800 CALORIE RESTRICTION EXERCISE BAND - use for 10 min on upper body and 5 min on lower body. Bring in the diet log from this past. month Continue with ibuprofen for the knee pain. HTN - controlled - no change in medications. continue daily dressing change . Skin tear-dorsum [...] office or get her labs done at [facility] this week. She reports that her insurance company has not returned her phone calls despite her leaving multiple messages. I have obtained the phone number from the pt and will call tomorrow. mucinex twice daily drink lots of water . Bronchitis - acute case of bronchitis identified. Pt has been given antibiotics, breathing treatments as appropriate, and pt has been instructed to call if symptoms are not improved, or if symptoms acutely worsen. mucinex twice daily drink lots of water . Bronchitis - acute case of bronchitis identified. Pt has been given antibiotics, breathing treatments as appropriate, and pt has been instructed to call if symptoms are not improved, or if symptoms acutely worsen. COPD - pt in the office again on 05/11/18 with worsening shortness of breath - seen by Dr. Do - she needs a nebulizer and will be sent for a CT scan of the chest with iv contrast - she will then be seen by Dr. Godfrey tomorrow for discussion of possible bronchoscopy RX for duoneb treatments and nebulizer therapy . Kpedg-vxwferw-kqrm lasix 40mg daily x 3 days with potassium 20mEq BID x 3 days, then resume daily PRN schedule. If symptoms do not improve, we will obtain a chest xray. Recommend screening mammogram . Culture urine . PT GIVEN ROUTINE ALLERGY SHOTS FOR DESENSITIZATION Restart pradaxa as instructed twice daily. Return [...] as had been initiall instructed. . Abdominal xlda-PSR-dlsp recent CT chest showed partially calcified aneurysm [...] being re-exposed to the environment of the [facility]. Move mucinex to evening dosing. Chronic sinusitis- [...] her office has mold growing again. . Trigger Points - Injected trigger points [...] to start IV abx and breathing treatments. Return Wednesday morning for fasting labs. Biaxin prescription sent to [facility]-it is twice daily x 10 days. [...] by Dr. Cueto. Also patient to have medical case worker and psych consults in the next couple of months as well. Sinusitis - Pt has acute infection - pain in face, maxillary region, Pt informed to use decongestant, RX given to patient, sinus rinses also recommended. Call if symptoms do not show improvement. Kenalog injection today in the office. . Kenalog injection SCHEDULE MAMMOGRAM (NOT THIS WEDNESDAY, NEXT WEDNESDAY OR WEDNESDAY) COLOGUARD . Medicare Exam - today we discussed the patients past history, immunizations, preventative exams/evaluations - colonoscopy, fecal occult blood testing, routine labs for renal function, glucose, cholesterol, osteoporosis evaluations , cardiovascular testing and cancer screenings. We have also discussed mental health and the signs/symptoms of depression. The patient was advised of home safety evaluations and the need to make sure that as the aging process continues , we need to be aware of different ways to make the home a safer place to reside. The patient has also been counseled that exercise is necessary - and of utmost importance as we age to help decrease fall risk and to maintain independence in the home. Today we discussed the need for the patient to create paperwork for Advanced directives as well as for the patient to provide this office with a copy of her [employer] paperwork for health care surrogate.
[2018-06-03 06:56] VITALS: BP 172/73
[2018-06-03] MEDS: TETRACAINE 0.5% OPHTH SOLN 4 ML BTL (SINGLE DOSE ONLY) OU PRN ×4 (06:57→07:14)
[2018-06-03] MEDS ORDERED: POVIDONE (BETADINE) OPHTH SOLN 5% 30 ML OP ONE (07:00)
[2018-06-03] MEDS ORDERED: MOXIFLOXACIN OPHTH SOLN 5 MG/ML 0.3 ML SYRINGE OP ONE (07:00)
[2018-06-03] MEDS ORDERED: TIMOLOL MALEATE 0.5% 5 ML (TIMOPTIC) BTL OU PRN (07:00)
[2018-06-03] MEDS ORDERED: LIDOCAINE PF 1% 2 ML AMP IR PRN (07:00)
--- OUTSIDE RECORDS SUMMARY | 2018-06-03 07:00 | XMS REPORT | CCD ---
Author Author [facility] Address [address] [place] [address] Phone Care Team Providers Care Calculation Clerk Name Role Phone PP Unavailable CCM Unavailable Summary Purpose Interface Exchange Insurance Providers Payer name Policy type / Coverage type Covered constitution party ID Effective Begin Date Effective End Date WPS Medicare Part B Medicare Part B [id number] 2017 Unknown [employer] Medicare Part B [id number] Unknown Family history Father Diagnosis Age At Onset No Family Disease Entered N/A Runs in the family Diagnosis Age At Onset Diabetes Unknown Mother Diagnosis Age At Onset No Family Disease Entered N/A Social History Social History Element Codes Description Effective Dates Employment 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: V65.3 03/17/2011 Active Obesity ICD-9: 278.00 [...] Start Date Stop Date Status Fill Instructions ipratropium-albuterol 0.5 mg-3 mg(2.5 mg base)/3 mL nebulization soln RxNorm: 1274836 1 INH Q6 as needed 05/11/2018 09/07/2018 Active ipratropium-albuterol 0.5 mg-3 mg(2.5 mg base)/3 mL nebulization soln RxNorm: 6043595 1 INH Q6 as needed 05/11/2018 05/10/2018 Inactive Tamiflu 75 mg capsule RxNorm: 275086 1 Capsule(s) PO BID 201805/14/2018 Active Tamiflu 75 mg capsule RxNorm: 034865 1 Capsule(s) PO BID 201805/09/2018 Inactive Kenalog 40 mg/mL suspension for injection RxNorm: 1261379 Milliliter(s) Inj 05/09/2018 05/09/2018 Inactive potassium chloride ER 10 mEq tablet,extended release RxNorm: 523032 1 Tablet(s) TAKE 1 CAPSULES BY MOUTH TWICE DAILY 05/02/2018 No Stop Date Active doxycycline hyclate 100 mg tablet RxNorm: 4359523 1 Tablet(s) PO BID 04/01/2018 03/31/2018 Inactive doxycycline hyclate 100 mg tablet RxNorm: 5149492 1 Tablet(s) PO BID 04/01/2018 04/10/2018 Inactive ketorolac 60 mg/2 mL intramuscular solution RxNorm: 7539367 Milliliter(s) IM 03/21/2018 03/21/2018 Inactive Voltaren 1 % topical gel RxNorm: 502771 4 Gram(s) TOP QID 03/1103/10/2018 Inactive Voltaren 1 % topical gel RxNorm: 520237 4 Gram(s) TOP QID 03/1104/09/2018 Inactive Xanax 0.25 mg tablet RxNorm: 406072 Tablet(s) PO TAKE ONE TABLET BY MOUTH EVERY 4 TO 6 HOURS NEEDED 03/09/20182018 Active potassium chloride ER 10 mEq tablet,extended release RxNorm: 299380 TAKE 2 CAPSULES BY MOUTH TWICE DAILY 02/28/2018 05/01/2018 Inactive Levaquin 500 mg tablet RxNorm: 988864 1 Tablet(s) PO daily 12/201701/31/2018 Inactive Macrobid 100 mg capsule RxNorm: 096895 1 Capsule(s) PO BID 01/06/2018 Inactive Macrobid 100 mg capsule RxNorm: 610902 1 Capsule(s) PO BID 12/30/2017 Inactive ondansetron 4 mg disintegrating tablet RxNorm: 777257 1 Tablet(s) PO Q4 PRN 10/22/2017 No Stop Date Active Xanax 0.25 mg tablet RxNorm: 687941 Tablet(s) PO TAKE ONE TABLET BY MOUTH EVERY 4 TO 6 HOURS NEEDED 07/29/20172017 Inactive Levaquin 500 mg tablet RxNorm: 472341 1 Tablet(s) PO daily 07/14/2017 Inactive Levaquin 500 mg tablet RxNorm: 064892 1 Tablet(s) PO daily 07/21/2017 Inactive Xarelto 20 mg tablet RxNorm: 2652085 1 Tablet(s) PO daily 06/2812/24/2017 Inactive Xarelto 20 mg tablet RxNorm: 5963825 1 Tablet(s) PO daily 06/2806/27/2017 Inactive potassium chloride ER 10 mEq tablet,extended release RxNorm: 219646 2 Capsule(s) PO BID 06/28/2017 12/24/2017 Inactive potassium chloride ER 10 mEq tablet,extended release RxNorm: 628325 2 Capsule(s) PO BID 06/28/2017 06/27/2017 Inactive prednisone 10 mg tablet RxNorm: 799922 Tablet(s) PO UD 201703/20/2018 Inactive 6,5,4,3,2,1 Vitamin D2 50,000 unit capsule RxNorm: 349437 1 Capsule(s) PO QW 04/26/2017 07/24/2017 Inactive Lexapro 10 mg tablet RxNorm: 501921 1 Tablet(s) PO QHS 201601/11/2017 Inactive Lexapro 10 mg tablet RxNorm: 616800 1 Tablet(s) PO QHS 201604/25/2017 Inactive famotidine 20 mg tablet RxNorm: 791249 1 Tablet(s) PO BID 01/0601/05/2017 Inactive famotidine 20 mg tablet RxNorm: 027270 1 Tablet(s) PO BID 01/0604/25/2017 Inactive doxazosin 2 mg tablet RxNorm: 319771 TAKE ONE-HALF TABLET BY MOUTH TWICE DAILY 12/17/2016 04/25/2017 Inactive Xanax 0.25 mg tablet RxNorm: 690721 Tablet(s) PO TAKE ONE TABLET BY MOUTH EVERY 4 TO 6 HOURS NEEDED 11/12/20162016 Inactive Xanax 0.25 mg tablet RxNorm: 842633 Tablet(s) PO TAKE ONE TABLET BY MOUTH EVERY 4 TO 6 HOURS NEEDED 11/12/20162016 Inactive Levaquin 500 mg tablet RxNorm: 516402 1 Tablet(s) PO daily 10/28/2016 Inactive Levaquin 500 mg tablet RxNorm: 647362 1 Tablet(s) PO daily 11/04/2016 Inactive Pyridium 200 mg tablet RxNorm: 8877654 1 Tablet(s) PO TID PRN 10/29/2016 04/25/2017 Inactive potassium chloride ER 10 mEq tablet,extended release RxNorm: 886963 2 Capsule(s) PO BID 10/20/2016 02/16/2017 Inactive potassium chloride ER 10 mEq tablet,extended release RxNorm: 159852 2 Capsule(s) PO BID 10/16/2016 10/19/2016 Inactive potassium chloride ER 10 mEq tablet,extended release RxNorm: 158282 1 Capsule(s) PO daily 10/15/2016 10/15/2016 Inactive potassium chloride 40 mEq/15 mL oral liquid RxNorm: 904084 7.5 Milliliter(s) PO BID 10/05/2016 10/11/2016 Inactive potassium chloride 40 mEq/15 mL oral liquid RxNorm: 305765 7.5 Milliliter(s) PO BID 10/05/2016 10/04/2016 Inactive potassium chloride 40 mEq/15 mL oral liquid RxNorm: 775334 7.5 Milliliter(s) PO BID 10/05/2016 10/04/2016 Inactive doxycycline hyclate 100 mg tablet RxNorm: 465574 1 Tablet(s) PO BID 09/30/2016 10/09/2016 Inactive Vitamin D2 50,000 unit capsule RxNorm: 343952 1 Capsule(s) PO QW 09/15/2016 09/14/2016 Inactive Vitamin D2 50,000 unit capsule RxNorm: 737943 1 Capsule(s) PO QW 09/15/2016 12/13/2016 Inactive doxycycline hyclate 100 mg tablet RxNorm: 056270 1 Tablet(s) PO BID 08/11/2016 08/24/2016 Inactive doxycycline hyclate 100 mg tablet RxNorm: 090850 1 Tablet(s) PO BID 07/24/2016 07/28/2016 Inactive mupirocin 2 % topical ointment RxNorm: 781712 1 Application TOP BID 07/24/2016 07/23/2016 Inactive mupirocin 2 % topical ointment RxNorm: 377540 1 Application TOP BID 07/24/2016 07/30/2016 Inactive doxycycline hyclate 100 mg tablet RxNorm: 600820 1 Tablet(s) PO BID 07/24/2016 07/23/2016 Inactive potassium chloride ER 10 mEq tablet,extended release RxNorm: 386447 2 Tablet(s) PO BID 07/20/2016 10/04/2016 Inactive Lasix 20 mg tablet RxNorm: 515515 1 Tablet(s) PO PRN 2016 No Stop Date Active PRN for swelling Xanax 0.25 mg tablet RxNorm: 654925 Tablet(s) PO TAKE ONE TABLET BY MOUTH EVERY 4 TO 6 HOURS NEEDED 06/19/20162016 Inactive prednisone 20 mg tablet RxNorm: 513206 1 Tablet(s) PO BID 06/0306/07/2016 Inactive potassium chloride ER 10 mEq tablet,extended release RxNorm: 306953 2 Tablet(s) PO BID 05/06/2016 05/05/2016 Inactive potassium chloride ER 10 mEq tablet,extended release RxNorm: 911184 2 Tablet(s) PO BID 05/06/2016 06/04/2016 Inactive Levaquin 500 mg tablet RxNorm: 454275 1 Tablet(s) PO daily 03/30/2016 Inactive Levaquin 500 mg tablet RxNorm: 569615 1 Tablet(s) PO daily 04/06/2016 Inactive prednisone 20 mg tablet RxNorm: 372728 1 Tablet(s) PO BID 02/2402/29/2016 Inactive prednisone 20 mg tablet RxNorm: 620661 1 Tablet(s) PO BID 02/2402/24/2016 Inactive Flonase 50 mcg/actuation nasal spray,suspension RxNorm: 7298413 2 [place] NASAL daily 02/18/2016 02/27/2016 Inactive doxycycline hyclate 100 mg tablet RxNorm: 971125 1 Tablet(s) PO BID 02/18/2016 02/27/2016 Inactive doxycycline hyclate 100 mg tablet RxNorm: 461598 1 Tablet(s) PO BID 02/18/2016 02/17/2016 Inactive cyclobenzaprine 5 mg tablet RxNorm: 783120 1-2 Tablet(s) PO TID as needed 02/12/2016 02/21/2016 Inactive cyclobenzaprine 5 mg tablet RxNorm: 470991 1-2 Tablet(s) PO TID as needed 02/12/2016 02/11/2016 Inactive Xanax 0.25 mg tablet RxNorm: 957668 Tablet(s) PO TAKE ONE TABLET BY MOUTH EVERY 4 TO 6 HOURS NEEDED 01/20/20162016 Inactive (Appended: Controlled substance eRx refill - RxReferenceNumber: [id number]) metoprolol tartrate 25 mg tablet RxNorm: 998528 1/2 Tablet(s) PO BID 12/13/2015 04/10/2016 Inactive doxazosin 2 mg tablet RxNorm: 645669 1 Tablet(s) PO QHS 201512/16/2016 Inactive metoprolol tartrate 25 mg tablet RxNorm: 029032 1/2 Tablet(s) PO BID 12/09/2015 12/12/2015 Inactive Vitamin D2 50,000 unit capsule RxNorm: 141812 1 Capsule(s) PO QW 12/09/2015 02/06/2016 Inactive Lasix 20 mg tablet RxNorm: 694050 1 Tablet(s) PO PRN 201507/05/2016 Inactive PRN for swelling potassium chloride ER 20 mEq tablet,extended release RxNorm: 432164 1 Tablet(s) PO daily as needed When taking lasix 10/03/2015 04/26/2016 Inactive cyanocobalamin (vit B-12) 1,000 mcg/mL injection solution RxNorm: 441594 Milliliter(s) Inj 09/13/2015 09/13/2015 Inactive doxycycline hyclate 100 mg tablet RxNorm: 062575 1 Tablet(s) PO BID 09/12/2015 09/18/2015 Inactive potassium chloride ER 10 mEq tablet,extended release RxNorm: 152057 1 Tablet(s) PO daily as needed When taking lasix 09/04/2015 10/02/2015 Inactive Lasix 20 mg tablet RxNorm: 112090 1 Tablet(s) PO PRN 201510/02/2015 Inactive PRN for swelling doxycycline hyclate 100 mg tablet RxNorm: 788717 1 Tablet(s) PO BID 08/26/2015 08/25/2015 Inactive doxycycline hyclate 100 mg tablet RxNorm: 007017 1 Tablet(s) PO BID 08/26/2015 09/01/2015 Inactive mupirocin 2 % topical ointment RxNorm: 990251 1 Application TOP BID 08/02/2015 08/01/2015 Inactive mupirocin 2 % topical ointment RxNorm: 647151 1 Application TOP BID 08/02/2015 08/08/2015 Inactive metoprolol tartrate 50 mg tablet RxNorm: 487862 2 tabs in morning and 1 tablet at night dose PO as directed 06/13/201510/23 Inactive 2 tabs in the morning, and 1 in the evening Benicar 40 mg tablet RxNorm: 695161 1 Tablet(s) PO daily 201510/21/2015 Inactive Benicar 40 mg tablet RxNorm: 256513 1 Tablet(s) PO daily 201506/12/2015 Inactive Vitamin D2 50,000 unit capsule RxNorm: 737043 1 Capsule(s) PO QW 06/11/2015 12/07/2015 Inactive Xanax 0.25 mg tablet RxNorm: 920927 Tablet(s) PO TAKE ONE TABLET BY MOUTH EVERY 4 TO 6 HOURS NEEDED 06/06/20152015 Inactive (Appended: Controlled substance eRx refill - RxReferenceNumber: [id number]) Levaquin 500 mg tablet RxNorm: 097030 1 Tablet(s) PO daily 11/201510/28/2015 Inactive Kenalog 40 mg/mL suspension for injection RxNorm: 1893056 Milliliter(s) Inj 03/27/2015 03/27/2015 Inactive Kenalog 40 mg/mL suspension for injection RxNorm: 4449389 Milliliter(s) Inj 12/11/2014 12/11/2014 Inactive Vitamin D2 50,000 unit capsule RxNorm: 956882 1 Capsule(s) PO QW 12/05/2014 06/02/2015 Inactive [SAVINGS FOR NON-COVERED DRUGS -- BIN:961802, PCN: ASPROD1, Group: XXXXX, ID# [id number], Questions: . THIS IS NOT INSURANCE.] Pradaxa 150 mg capsule RxNorm: 3992991 Capsule(s) PO BID 201409/08/2015 Inactive TAKE 1 CAPSULE BY MOUTH TWICE DAILY Vitamin D2 50,000 unit capsule RxNorm: 047792 1 Capsule(s) PO QW 12/04/2014 12/04/2014 Inactive [SAVINGS FOR NON-COVERED DRUGS -- BIN:408179, PCN: ASPROD1, Group: XXXXX, ID# [id number], Questions: . THIS IS NOT INSURANCE.] Lasix 20 mg tablet RxNorm: 105057 1 Tablet(s) PO PRN 201411/25/2014 Inactive PRN for swelling Levaquin 500 mg tablet RxNorm: 035446 1 Tablet(s) PO daily 01/201511/25/2014 Inactive Levaquin 500 mg tablet RxNorm: 031292 1 Tablet(s) PO daily 01/201512/02/2014 Inactive Lasix 20 mg tablet RxNorm: 163667 1 Tablet(s) PO PRN 201409/03/2015 Inactive PRN for swelling nitrofurantoin 100 mg capsule RxNorm: 732450 1 Capsule(s) PO BID 11/12/2014 11/17/2014 Inactive Macrobid 100 mg capsule RxNorm: 743272 1 Capsule(s) PO BID 11/18/2014 Inactive Macrobid 100 mg capsule RxNorm: 524189 1 Capsule(s) PO BID 11/11/2014 Inactive Levaquin 500 mg tablet RxNorm: 055811 1 Tablet(s) PO daily 11/11/2014 Inactive metoprolol tartrate 50 mg tablet RxNorm: 668016 2 tabs in morning and 1 tablet at night dose PO as directed 10/25/201405/21 Inactive 2 tabs in the morning, and 1 in the evening Xanax 0.25 mg tablet RxNorm: 948194 Tablet(s) PO TAKE ONE TABLET BY MOUTH EVERY 4 TO 6 HOURS NEEDED 08/30/20142014 Inactive (Appended: Controlled substance eRx refill - RxReferenceNumber: [id number]) Levaquin 500 mg tablet RxNorm: 981782 1 Tablet(s) PO daily 07/31/2014 Inactive Levaquin 500 mg tablet RxNorm: 798402 1 Tablet(s) PO daily 08/07/2014 Inactive Vitamin D2 50,000 unit capsule RxNorm: 261966 1 Capsule(s) PO QW 05/16/2014 2014 Inactive [SAVINGS FOR NON-COVERED DRUGS -- BIN:922415, PCN: ASPROD1, Group: XXXXX, ID# [id number], Questions: . THIS IS NOT INSURANCE.] Zithromax 500 mg tablet RxNorm: 925892 1 Tablet(s) PO daily 05/10/2014 Inactive Zithromax 500 mg tablet RxNorm: 431403 1 Tablet(s) PO daily 05/15/2014 Inactive [SAVINGS FOR NON-COVERED DRUGS -- BIN:786266, PCN: ASPROD1, Group: XXXXX, ID# [id number], Questions: . THIS IS NOT INSURANCE.] prednisone 20 mg tablet RxNorm: 792320 Tablet(s) PO 3daily x 2days, then 2daily x2days, then 1daily x2days, then 1/2 daily x 2days then stop 03/13/2014 2014 Inactive [SAVINGS FOR UNINSURED PATIENTS -- BIN:687509, PCN: ASPROD1, Group: [id number], ID# [id number], Process claim through [employer], for questions: [phone]. THIS IS NOT INSURANCE.] Levaquin 500 mg tablet RxNorm: 321037 1 Tablet(s) PO daily TAKE ONE TABLET BY MOUTH ONCE DAILY take with benadryl 03/13/2014 03/22/2014 Inactive [SAVINGS FOR UNINSURED PATIENTS -- BIN:935176, PCN: ASPROD1, Group: [id number], ID# [id number], Process claim through [employer], for questions: . 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 01/06/14 prednisone 20 mg tablet RxNorm: 288846 Tablet(s) PO 3daily x 2days, then 2daily x2days, then 1daily x2days, then 1/2 daily x 2days then stop 12/13/2013 03/12/2014 Inactive Levaquin 500 mg tablet RxNorm: 036201 1 Tablet(s) PO daily TAKE ONE TABLET BY MOUTH ONCE DAILY take with benadryl 12/13/2013 12/19/2013 Inactive Vitamin D2 50,000 unit capsule RxNorm: 691465 1 Capsule(s) PO QW 12/12/2013 03/11/2014 Inactive weekly x 12 weeks Vitamin D2 50,000 unit capsule RxNorm: 411378 1 Capsule(s) PO QW 12/12/2013 12/11/2013 Inactive metoprolol tartrate 50 mg tablet RxNorm: 878217 2 tabs in morning and 1 tablet at night dose PO as directed 11/03/201305/31 Inactive 2 tabs in the morning, and 1 in the evening Bactroban 2 % topical ointment RxNorm: 844466 1 Application TOP BID 10/30/2013 11/08/2013 Inactive Bactroban 2 % topical ointment RxNorm: 864959 1 Application TOP BID 10/30/2013 10/29/2013 Inactive Lasix 40 mg tablet RxNorm: 658279 1 Tablet(s) PO daily as needed 10/23/2013 2014 Inactive metoprolol tartrate 50 mg tablet RxNorm: 251557 1 Tablet(s) PO BID 08/28/2013 09/26/2013 Inactive 2 tabs in the morning, and 1 in the evening metoprolol tartrate 50 mg tablet RxNorm: 775216 1 Tablet(s) PO BID 08/28/2013 08/27/2013 Inactive 2 tabs in the morning, and 1 in the evening Lasix 40 mg tablet RxNorm: 824042 1 Tablet(s) PO daily 201310/22/2013 Inactive Lasix 40 mg tablet RxNorm: 258233 1 Tablet(s) PO daily 201308/07/2013 Inactive potassium chloride ER 10 mEq tablet,extended release RxNorm: 929932 1 Tablet(s) PO BID 07/14/2013 2014 Inactive Lipitor 20 mg tablet RxNorm: 479647 1 Tablet(s) PO daily 201307/08/2014 Inactive generic ok Xanax 0.25 mg tablet RxNorm: 521282 Tablet(s) PO TAKE 1 TABLET BY MOUTH EVERY 4 TO 6 HOURS NEEDED 07/14/20132013 Inactive (Appended: Controlled substance eRx refill - RxReferenceNumber: [id number]|1|0|1) Xanax 0.25 mg tablet RxNorm: 266312 Tablet(s) PO TAKE ONE TABLET BY MOUTH EVERY 4 TO 6 HOURS NEEDED 07/14/20132013 Inactive (Appended: Controlled substance eRx refill - RxReferenceNumber: [id number]) metoprolol succinate ER 50 mg tablet,extended release 24 hr RxNorm: 030152 100mg q am 50 in even Tablet(s) PO 07/14/2013 Inactive Levaquin 500 mg tablet RxNorm: 022604 Tablet(s) PO TAKE ONE TABLET BY MOUTH ONCE DAILY 07/13/2013 12/12/2013 Inactive Levaquin 500 mg tablet RxNorm: 461127 Tablet(s) PO TAKE ONE TABLET BY MOUTH ONCE DAILY 07/13/2013 10/22/2013 Inactive Levaquin 500 mg tablet RxNorm: 192023 1 Tablet(s) PO daily 02/201305/22/2013 Inactive Levaquin 500 mg tablet RxNorm: 777529 1 Tablet(s) PO daily 05/15/2013 Inactive Lipitor 20 mg tablet RxNorm: 763876 1 Tablet(s) PO daily 201307/13/2013 Inactive generic ok Kenalog 40 mg/mL suspension for injection RxNorm: 9474722 1 Milliliter(s) Inj 04/14/2013 04/14/2013 Inactive Lipitor 20 mg tablet RxNorm: 961390 1 Tablet(s) PO daily 201304/16/2013 Inactive Lipitor 20 mg tablet RxNorm: 918984 1 Tablet(s) PO daily 201304/13/2013 Inactive metoprolol succinate ER 50 mg tablet,extended release 24 hr RxNorm: 050624 100mg q am 50 in even Tablet(s) PO 04/14/2013 Inactive Levaquin 500 mg tablet RxNorm: 542283 1 Tablet(s) PO daily 04/20/2013 Inactive Carafate 1 gram tablet RxNorm: 891802 1 Tablet(s) PO QID 201303/30/2013 Inactive Carafate 1 gram tablet RxNorm: 444525 1 Tablet(s) PO QID 201304/23/2013 Inactive Zithromax Z-Preston 250 mg tablet RxNorm: 386782 Tablet(s) PO zpack as directed 01/31/2013 04/12/2013 Inactive Zofran 4 mg tablet RxNorm: 555677 1 Tablet(s) PO Q6 PRN 12/0704/12/2013 Inactive Xanax 0.25 mg tablet RxNorm: 300068 Tablet(s) PO TAKE 1 TABLET BY MOUTH EVERY 4 TO 6 HOURS NEEDED 06/20/20122013 Inactive (Appended: Controlled substance eRx refill - RxReferenceNumber: [id number]|1|0|1) Xanax 0.25 mg tablet RxNorm: 182918 1 Tablet(s) PO Q4-6H q 4-6 hrs prn 06/20/2012 No Stop Date Active doxycycline monohydrate 100 mg tablet RxNorm: 1796196 1 Tablet(s) PO BID 05/17/2012 05/26/2012 Inactive doxycycline monohydrate 100 mg tablet RxNorm: 4505442 1 Tablet(s) PO BID 04/11/2012 04/20/2012 Inactive Kenalog 40 mg/mL Susp for Injection RxNorm: 3562552 1 Milliliter(s) Inj 04/11/2012 04/11/2012 Inactive metoprolol succinate ER 50 mg tablet,extended release 24 hr RxNorm: 209932 Tablet (s) PO TAKE 1 & 1/2 TABLETS BY MOUTH TWICE DAILY 02/01/2012 04/13/2013 Inactive Lipitor 40 mg tablet RxNorm: 194109 Tablet(s) PO TAKE 1 TABLET BY MOUTH EVERY DAY 02/01/2012 04/12/2013 Inactive Pradaxa 150 mg capsule RxNorm: 7389742 Capsule(s) PO 201112/03/2014 Inactive TAKE 1 CAPSULE BY MOUTH TWICE DAILY Xanax 0.25 mg tablet RxNorm: 138217 1 Tablet(s) PO Q4-6H q 4-6 hrs prn 12/28/2011 06/20/2012 Inactive metoprolol succinate ER 50 mg tablet,extended release 24 hr RxNorm: 836581 Tablet (s) PO 12/28/2011 01/31/2012 Inactive TAKE 1 & 1/2 TABLETS BY MOUTH TWICE DAILY Singulair 10 mg tablet RxNorm: 904361 Tablet(s) PO 12/28/2011 04/13/2013 Inactive TAKE ONE TABLET BY MOUTH DAILY clindamycin 150 mg capsule RxNorm: 316931 1 Capsule(s) PO QID 11/25/2011 12/01/2011 Inactive Influenza Virus Vaccine 0.5 mL RxNorm: IM 11/11/2011 11/11/2011 Inactive Pneumovax 23 25 mcg/0.5 mL Injection RxNorm: 881742 Milliliter(s) Inj 11/11/2011 11/11/2011 Inactive Biaxin 500 mg tablet RxNorm: 760136 1 Tablet(s) PO BID 201110/30/2011 Inactive Flagyl 500 mg tablet RxNorm: 092483 1 Tablet(s) PO TID 201109/03/2011 Inactive Flagyl 500 mg tablet RxNorm: 078703 1 Tablet(s) PO TID 201109/10/2011 Inactive doxycycline hyclate 100 mg tablet RxNorm: 0279392 1 Tablet(s) PO BID 09/04/2011 09/10/2011 Inactive doxycycline hyclate 100 mg tablet RxNorm: 4793757 1 Tablet(s) PO BID 09/04/2011 09/03/2011 Inactive Xopenex 1.25 mg/3 mL Neb Solution RxNorm: 913253 1 Unit(s) INH Q4 PRN 08/18/2011 12/15/2011 Inactive 1 box Xopenex 1.25 mg/3 mL Neb Solution RxNorm: 541909 1 Milliliter(s) INH Q4 PRN 08/18/2011 08/17/2011 Inactive 1 box Zithromax Z-Preston 250 mg Tab RxNorm: 376832 Tablet(s) PO UD 08/1008/11/2011 Inactive doxycycline hyclate 100 mg Tab RxNorm: 3106265 1 Tablet(s) PO BID 08/11/2011 08/11/2011 Inactive prednisone 10 mg Tab RxNorm: 939767 1 Tablet(s) PO BID q a.m. and q NOON x 5 days 08/11/2011 08/10/2011 Inactive prednisone 10 mg Tab RxNorm: 173205 1 Tablet(s) PO BID q a.m. and q NOON x 5 days 08/11/2011 08/15/2011 Inactive Kenalog 40 mg/mL Susp for Injection RxNorm: 5416793 1 Milliliter(s) Inj 08/11/2011 08/11/2011 Inactive doxycycline hyclate 100 mg Tab RxNorm: 3585573 1 Tablet(s) PO BID 08/11/2011 08/10/2011 Inactive nystatin 100,000 unit/mL Oral Susp RxNorm: 081119 6 Milliliter(s) PO QID 08/10/2011 08/16/2011 Inactive Jamie 60 mg Tab RxNorm: 994394 1 Tablet(s) PO daily 201101/23/2012 Inactive Jamie 60 mg Tab RxNorm: 202122 1 Tablet(s) PO daily 201107/27/2011 Inactive potassium chloride ER 10 mEq tablet,extended release RxNorm: 603708 1 Tablet(s) PO BID 07/27/2011 08/19/2012 Inactive Synthroid 75 mcg Tab RxNorm: 229917 Tablet(s) PO 07/06/2011 07/29/2012 Inactive one tab wednesday1/2 tab other days potassium chloride ER 10 mEq Tab RxNorm: 800216 1 Tablet(s) PO BID 07/02/2011 07/26/2011 Inactive Lasix 40 mg tablet RxNorm: 777038 1 Tablet(s) PO daily 201112/28/2011 Inactive Nexium 40 mg Capsule, delayed release RxNorm: 194460 1 Capsule(s) PO daily 06/25/2011 11/24/2011 Inactive Lexapro 10 mg Tab RxNorm: 874708 1 Tablet(s) PO daily 201107/14/2011 Inactive Carafate 100 mg/mL Oral Susp RxNorm: 697197 10 Milliliter(s) PO QID 06/25/2011 10/20/2011 Inactive dispense qs x 1 month nystatin 100,000 unit/mL Oral Susp RxNorm: 540726 3 Milliliter(s) PO QID swish, gargle, then swallow four times daily. 06/25/2011 07/14/2011 Inactive dispense qs x 10 days. Mucinex 1,200 mg 12 hr Tab RxNorm: 434408 1 Tablet(s) PO BID 07/21/2011 Inactive Lipitor 40 mg tablet RxNorm: 592115 1 Tablet(s) PO daily 201112/18/2011 Inactive lactobacillus acidophilus Cap RxNorm: 2 Capsule(s) PO BID 08/201107/14/2011 Inactive Mucinex 1,200 mg 12 hr Tab RxNorm: 432800 1 Tablet(s) PO BID 06/21/2011 Inactive lactobacillus acidophilus Cap RxNorm: 1 Capsule(s) PO BID 06/21/2011 Inactive Kenalog 40 mg/mL Susp for Injection RxNorm: 7346147 1 Milliliter(s) Inj 06/15/2011 06/15/2011 Inactive Flagyl 500 mg Tab RxNorm: 301003 1 Tablet(s) PO TID 201107/14/2011 Inactive doxycycline hyclate 100 mg Cap RxNorm: 5510640 1 Capsule(s) PO BID 06/15/2011 07/14/2011 Inactive clarithromycin 250 mg Tab RxNorm: 190892 1 Tablet(s) PO BID 07/14/2011 Inactive Xanax 0.25 mg tablet RxNorm: 201203 1 Tablet(s) PO Q4-6H q 4-6 hrs prn 05/27/2011 07/16/2011 Inactive Lasix 40 mg Tab RxNorm : 572817 3 Tablet(s) PO as directed 2 q am and 1 q noon 05/27/2011 07/01/2011 Inactive potassium chloride ER 10 mEq Tab RxNorm: 501070 1 Tablet(s) PO BID 05/27/2011 05/26/2011 Inactive KCL 10 meq RxNorm: 1 PO BID 05/27/201112/2011 Inactive potassium chloride ER 10 mEq Tab RxNorm: 696717 1 Tablet(s) PO BID 05/27/2011 06/25/2011 Inactive Pradaxa 75 mg Cap RxNorm: 7030536 2 Capsule(s) PO daily 09/29/2011 Inactive Biaxin 500 mg Tab RxNorm: 991153 1 Tablet(s) PO BID 201103/16/2011 Inactive Biaxin 500 mg Tab RxNorm: 391671 1 Tablet(s) PO BID 201107/14/2011 Inactive azithromycin 250 mg Tab RxNorm: 387684 1 Tablet(s) PO daily two by mouth daily x 3 days, then daily thereafter 02/06/2011 07/14/2011 Inactive two by mouth daily x 3 days, then daily thereafter until supply is exhausted azithromycin 250 mg Tab RxNorm: 677604 1 Tablet(s) PO daily two by mouth daily x 3 days, then daily thereafter 02/06/2011 02/05/2011 Inactive two by mouth daily x 3 days, then daily thereafter until supply is exhausted azithromycin 250 mg Tab RxNorm: 643926 1 Tablet(s) PO daily two by mouth daily x 3 days, then daily thereafter 02/06/2011 02/05/2011 Inactive two by mouth daily x 3 days, then daily thereafter until supply is exhausted Valturna 300 mg-320 mg Tab RxNorm: 7717463 Tablet(s) PO 201007/14/2011 Inactive TAKE 1 TABLET BY MOUTH EVERY DAY Kenalog 40 mg/mL Susp for Injection RxNorm: 8361385 2 Milliliter(s) Inj 11/20/2010 11/20/2010 Inactive Avelox 400 mg Tab RxNorm: 772899 1 Tablet(s) PO daily 201007/14/2011 Inactive Biaxin 500 mg Tab RxNorm: 515913 1 Tablet(s) PO BID 201011/15/2010 Inactive Pradaxa 150 mg Cap RxNorm: 4298556 1 Capsule(s) PO BID 201007/14/2011 Inactive Zyrtec oral RxNorm: 21269 oral No Start Date Active doxazosin 2 mg tablet RxNorm: 210971 1/2 Tablet(s) PO BID No Start Date 12/08/2015 Inactive Pyridium 200 mg tablet RxNorm: 5437664 1 Tablet(s) PO TID PRN No Start Date 10/28/2016 Inactive ondansetron 4 mg disintegrating tablet RxNorm: 561105 1 Tablet(s) PO Q4 PRN No Start Date 10/21/2017 Inactive Pradaxa 75 mg Cap RxNorm: 1536459 1 Capsule(s) PO daily No Start Date 05/04/2011 Inactive Singulair 10 mg tablet RxNorm: 635147 1 Tablet(s) PO daily No Start Date 07/14/2011 Inactive hydrocodone-acetaminophen 5 mg-325 mg tablet RxNorm: 744492 1 Tablet(s) PO Q6 PRN No Start Date 04/12/2013 Inactive Toprol XL 100 mg 24 hr Tab RxNorm: 742730 1 Tablet(s) PO BID No Start Date 07/14/2011 Inactive Zofran 4 mg tablet RxNorm: 176403 1 Tablet(s) PO Q6 PRN No Start Date 12/06/2012 Inactive Vitamin D2 50,000 unit capsule RxNorm: 593911 1 Capsule(s) PO QW No Start Date 05/15/2014 Inactive prednisone 10 mg tablet RxNorm: 951470 Tablet(s) PO UD No Start Date 06/15/2017 Inactive 6,5,4,3,2,1 Lipitor 40 mg Tab RxNorm: 957440 1 Tablet(s) PO daily No Start Date 06/21/2011 Inactive Trilipix 135 mg Cap RxNorm: 847757 Capsule(s) PO No Start Date 11/26/2010 Inactive Eliquis 5 mg tablet RxNorm: 4462944 1 Tablet(s) PO BID No Start Date 12/08/2015 Inactive KCL 10 meq RxNorm: 1 PO BID No Start Date 05/26/2011 Inactive Diovan 80 mg Tab RxNorm: 455271 1 Tablet(s) PO QHS No Start Date 07/14/2011 Inactive Lipitor 20 mg tablet RxNorm: 658673 1 Tablet(s) PO daily No Start Date 04/13/2013 Inactive Zithromax Z-Preston 250 mg tablet RxNorm: 203060 Tablet(s) PO No Start Date 01/30/2013 Inactive aspirin 81 mg Tab, Delayed Release RxNorm: 381774 1 Tablet(s) PO daily No Start Date 07/14/2011 Inactive prednisone 20 mg Tab RxNorm: 061717 Tablet(s) PO UD 3 tabs x 1 day, then 2 tabs daily x 2 days then 1 tab daily x 1 days, 1/2 daily x 1 day then 1/2 QOD x 2 doses then stop No Start Date 07/14/2011 Inactive Flonase 50 mcg/actuation Nasal [place] RxNorm: 2134450 2 [place] NASAL daily No Start Date 02/17/2016 Inactive hydrocodone 2.5 mg-guaifenesin 200 mg/5 mL syrup RxNorm: 797846 10 Unit Dose PO Q6 PRN No Start Date 04/25/2017 Inactive potassium chloride ER 10 mEq tablet,extended release RxNorm: 586697 1 Tablet(s) PO daily No Start Date 10/14/2016 Inactive Diovan 160 mg Tab RxNorm: 262563 1 Tablet(s) PO QHS No Start Date 12/20/2011 Inactive Lasix 40 mg Tab RxNorm : 732213 3 Tablet(s) PO as directed 2 q am and 1 q noon No Start Date 05/26/2011 Inactive metoprolol succinate ER 50 mg tablet,extended release 24 hr RxNorm: 150795 1 1 / 2 Tablet(s) PO BID No Start Date 2011 Inactive Carafate 1 gram Tab RxNorm: 379722 1 Tablet(s) PO TID No Start Date 07/14/2011 Inactive doxycycline hyclate 100 mg tablet RxNorm: 522719 1 Tablet(s) PO BID No Start Date 08/10/2016 Inactive Zithromax Z-Preston 250 mg Tab RxNorm: 266964 Oral No Start Date 08/10/2011 Inactive prednisone 20 mg Tab RxNorm: 497328 Tablet(s) PO No Start Date 04/06/2011 Inactive 3 tabs x 2 days, 2 tabs x 2 days, 1 tab x 2 days, 1/2 daily x 4 days then stop Bentyl 10 mg Cap RxNorm: 685397 1 Capsule(s) PO BID No Start Date 07/14/2011 Inactive Xarelto 15 mg tablet RxNorm: 1554328 1 Tablet(s) PO daily No Start Date 06/27/2017 Inactive Valturna 300 mg-320 mg Tab RxNorm: 1686673 1 Tablet(s) PO daily No Start Date 01/19/2011 Inactive Vitamin D 1,000 unit Tab RxNorm: 609446 1 Tablet(s) PO daily No Start Date 07/14/2011 Inactive Lexapro 10 mg Tab RxNorm: 037045 1 Tablet(s) PO daily No Start Date 04/06/2011 Inactive Synthroid 75 mcg Tab RxNorm: 796968 Tablet(s) PO No Start Date 07/05/2011 Inactive Protonix 40 mg Tab RxNorm: 566329 1 Tablet(s) PO daily No Start Date 07/14/2011 Inactive ranitidine 150 mg tablet RxNorm: 774094 1 Tablet(s) PO BID No Start Date 04/25/2017 Inactive prednisone 20 mg tablet RxNorm: 225921 Tablet(s) PO 3daily x 2days, then 2daily x2days, then 1daily x2days, then 1/2 daily x 2days then stop No Start Date 12/12/2013 Inactive Nexium 40 mg Cap RxNorm: 486692 1 Capsule(s) PO daily No Start Date 06/03/2011 Inactive Xanax 0.25 mg Tab RxNorm: 957356 1 Tablet(s) PO Q4-6H q 4-6 hrs prn No Start Date 04/06/2011 Inactive Synthroid 50 mcg Tab RxNorm: 139203 1 Tablet(s) PO daily No Start Date 07/14/2011 Inactive Pradaxa 150 mg capsule RxNorm: 4532579 1 Capsule(s) PO BID No Start Date 12/30/2011 Inactive metoprolol tartrate 25 mg tablet RxNorm: 532363 1 Tablet(s) PO TID No Start Date 12/08/2015 Inactive Singulair 5 mg Chewable Tab RxNorm: 551234 1 Tablet(s) PO every other day No Start Date 04/13/2013 Inactive Pepcid oral RxNorm: 4278 oral No Start Date 05/01/2018 Inactive Medication Administered Medication Codes Instructions Start Date Status Kenalog 40 mg/mL suspension for injection RxNorm: 0598480 Milliliter 05/09/2018 No longer Active ketorolac 60 mg/2 mL intramuscular solution RxNorm: 0458214 Milliliter 03/21/2018 No longer Active cyanocobalamin (vit B-12) 1,000 mcg/mL injection solution RxNorm: 291254 Milliliter 09/13/2015 No longer Active Kenalog 40 mg/mL suspension for injection RxNorm: 5502048 Milliliter 03/27/2015 No longer Active Kenalog 40 mg/mL suspension for injection RxNorm: 1390594 Milliliter 12/11/2014 No longer Active Kenalog 40 mg/mL suspension for injection RxNorm: 5011033 1Milliliter 04/14/2013 No longer Active Kenalog 40 mg/mL Susp for Injection RxNorm: 2792915 1Milliliter 04/11/2012 No longer Active Influenza Virus Vaccine 0.5 mL RxNorm: 11/11/2011 No longer Active Pneumovax 23 25 mcg/0.5 mL Injection RxNorm: 400896 Milliliter 11/11/2011 No longer Active Kenalog 40 mg/mL Susp for Injection RxNorm: 2065784 1Milliliter 08/11/2011 No longer Active Kenalog 40 mg/mL Susp for Injection RxNorm: 4880912 1Milliliter 06/15/2011 No longer Active Kenalog 40 mg/mL Susp for Injection RxNorm: 0749855 2Milliliter 11/20/2010 No longer Active Immunizations Vaccine [...] medications ICD-9: V58.69 04/12/2013 ESSENTIAL HYPERTENSION SNOMED: 66236677 ICD-9: 401.9 04/12/2013 ATRIAL FIBRILLATION ICD-9: 427.31 [...] Knee pain, acute ICD-9: 719.46 2011 DIETARY SURVEIL/VP ICD-9: V65.3 Encounter for general adult medical [...] Item Item Code Result Date Comp Metabolic Kjr745 NA 139 mEq/L 04/26/2018 Comp Metabolic Xjb790 K 4.2 mEq/L 04/26/2018 Comp Metabolic Www569 CL 103 mEq/L 04/26/2018 Comp Metabolic Okt485 CO2 30.0 mEq/L 04/26/2018 Comp Metabolic Sxg135 ANION GAP 10 04/26/2018 Comp Metabolic She624 GLUCOSE 105 mg/dL 04/26/2018 Comp Metabolic Yii291 Creat 1.0 mg/dL 04/26/2018 Comp Metabolic Ayi668 eGFR 62 ml/min/1.73m2 04/26/2018 Comp Metabolic Xim946 BUN 13 mg/dL 04/26/2018 Comp Metabolic Dwd472 B/C Ratio 13.7 Ratio 04/26/2018 Comp Metabolic Iqj605 CALCIUM 9.4 mg/dL 04/26/2018 Comp Metabolic Cfz740 ALK PHOS 116 U/L 04/26/2018 Comp Metabolic Ohc842 AST(SGOT) 13 U/L 04/26/2018 Comp Metabolic Sdk754 ALT(SGPT) 12 U/L 04/26/2018 Comp Metabolic Ycn984 BILI T 0.6 mg/dL 04/26/2018 Comp Metabolic Acs622 ALBUMIN 3.8 g/dL 04/26/2018 Comp Metabolic Ela358 TPRO 6.4 g/dL 04/26/2018 Comp Metabolic Sha782 GLOB 2.6 g/dL 04/26/2018 Comp Metabolic Ohk190 A/G Ratio 1.4 Ratio 04/26/2018 Comp Metabolic Bbt584 Osmo 278 mOsmo 04/26/2018 Lipid Ord30 CHOL [...] 24.5 % 04/26/2018 Cbc With Differential Ord2 [place]% 6.7 % 04/26/2018 Cbc With Differential Ord2 [...] 2.47 K/ul 04/26/2018 Cbc With Differential Ord2 [place] ABS# 0.7 K/ul 04/26/2018 Cbc With Differential [...] Ord30 C/HDL 3.5 Ratio 03/15/2017 Comp Metabolic Lrw663 NA 140 mEq/L 03/15/2017 Comp Metabolic Nqa784 K 3.6 mEq/L 03/15/2017 Comp Metabolic Hjf272 CL 104 mEq/L 03/15/2017 Comp Metabolic Lnv311 CO2 27.0 mEq/L 03/15/2017 Comp Metabolic Abz886 ANION GAP 13 03/15/2017 Comp Metabolic Dvv121 GLUCOSE 93 mg/dL 03/15/2017 Comp Metabolic Isi792 Creat 0.9 mg/dL 03/15/2017 Comp Metabolic Yho875 eGFR 68 ml/min/1.73m2 03/15/2017 Comp Metabolic Kiz086 BUN 10 mg/dL 03/15/2017 Comp Metabolic Ods094 B/C Ratio 11.4 Ratio 03/15/2017 Comp Metabolic Ynd395 CALCIUM 9.4 mg/dL 03/15/2017 Comp Metabolic Sit093 ALK PHOS 84 U/L 03/15/2017 Comp Metabolic Rtq543 AST(SGOT) 14 U/L 03/15/2017 Comp Metabolic Uty798 ALT(SGPT) 15 U/L 03/15/2017 Comp Metabolic Ioe153 BILI T 0.5 mg/dL 03/15/2017 Comp Metabolic Njv336 ALBUMIN 3.6 g/dL 03/15/2017 Comp Metabolic Veo004 TPRO 6.0 g/dL 03/15/2017 Comp Metabolic Izw827 GLOB 2.4 g/dL 03/15/2017 Comp Metabolic Kpy900 A/G Ratio 1.5 Ratio 03/15/2017 Comp Metabolic Las158 Osmo 278 mOsmo 03/15/2017 Magnesium Ord90 Mag [...] 30.4 pg 03/15/2017 Cbc With Differential Ord2 [place]% 6.7 % 03/15/2017 Cbc With Differential Ord2 [...] 2.24 K/ul 03/15/2017 Cbc With Differential Ord2 [place] ABS# 0.5 K/ul 03/15/2017 Cbc With Differential [...] Ord15 CALCIUM 9.4 mg/dL 01/15/2017 Comp Metabolic Lqj842 NA 137 mEq/L 12/31/2016 Comp Metabolic Swy148 K 3.2 mEq/L 12/31/2016 Comp Metabolic Bhn344 CL 95 mEq/L 12/31/2016 Comp Metabolic Jxw004 CO2 30.0 mEq/L 12/31/2016 Comp Metabolic Hpy026 ANION GAP 15 12/31/2016 Comp Metabolic Qjz208 GLUCOSE 111 mg/dL 12/31/2016 Comp Metabolic Vwe718 Creat 1.3 mg/dL 12/31/2016 Comp Metabolic Kki358 eGFR 45 ml/min/1.73m2 12/31/2016 Comp Metabolic Vlk718 BUN 14 mg/dL 12/31/2016 Comp Metabolic Qip876 B/C Ratio 11.1 Ratio 12/31/2016 Comp Metabolic Isv514 CALCIUM 10.0 mg/dL 12/31/2016 Comp Metabolic Wvm354 ALK PHOS 61 U/L 12/31/2016 Comp Metabolic Pmj823 AST(SGOT) 14 U/L 12/31/2016 Comp Metabolic Rac571 ALT(SGPT) 13 U/L 12/31/2016 Comp Metabolic Wcp189 BILI T 0.9 mg/dL 12/31/2016 Comp Metabolic Awm124 ALBUMIN 3.8 g/dL 12/31/2016 Comp Metabolic Jat521 TPRO 6.7 g/dL 12/31/2016 Comp Metabolic Qia488 GLOB 2.9 g/dL 12/31/2016 Comp Metabolic Tbj347 A/G Ratio 1.3 Ratio 12/31/2016 Comp Metabolic Ubm207 Osmo 275 mOsmo 12/31/2016 Cbc With Differential [...] 30.3 pg 12/31/2016 Cbc With Differential Ord2 [place]% 11.2 % 12/31/2016 Cbc With Differential Ord2 [...] 1.89 K/ul 12/31/2016 Cbc With Differential Ord2 [place] ABS# 0.7 K/ul 12/31/2016 Cbc With Differential Ord2 Eos ABS# 0.1 K/ul 12/31/2016 Cbc With Differential Ord2 Baso ABS# 0.1 K/ul 12/31/2016 Urine Culture Ucult Complete >100,000 col/ml aerobic growth sent to ref lab 10/30/2016 Tsh Ord6 hTSH II 2.88 uIU/mL 09/15/2016 Comp Metabolic Nns950 NA 139 mEq/L 09/15/2016 Comp Metabolic Olr603 K 4.0 mEq/L 09/15/2016 Comp Metabolic Mpg100 CL 104 mEq/L 09/15/2016 Comp Metabolic Nsr318 CO2 27.0 mEq/L 09/15/2016 Comp Metabolic Bsq802 ANION GAP 12 09/15/2016 Comp Metabolic Pyu706 GLUCOSE 105 mg/dL 09/15/2016 Comp Metabolic Uzf188 Creat 0.9 mg/dL 09/15/2016 Comp Metabolic Knb706 eGFR 67 ml/min/1.73m2 09/15/2016 Comp Metabolic Sof164 BUN 14 mg/dL 09/15/2016 Comp Metabolic Ktl422 B/C Ratio 15.7 Ratio 09/15/2016 Comp Metabolic Uqj316 CALCIUM 9.0 mg/dL 09/15/2016 Comp Metabolic Wuh504 ALK PHOS 85 U/L 09/15/2016 Comp Metabolic Hvm163 AST(SGOT) 12 U/L 09/15/2016 Comp Metabolic Qbi387 ALT(SGPT) 11 U/L 09/15/2016 Comp Metabolic Svb549 BILI T 0.5 mg/dL 09/15/2016 Comp Metabolic Wem301 ALBUMIN 3.4 g/dL 09/15/2016 Comp Metabolic Uki191 TPRO 5.8 g/dL 09/15/2016 Comp Metabolic Otg501 GLOB 2.4 g/dL 09/15/2016 Comp Metabolic Vuj101 A/G Ratio 1.4 Ratio 09/15/2016 Comp Metabolic Ykb069 Osmo 278 mOsmo 09/15/2016 Vitamin D 25 Oh Ivc5130 VITAMIN D, 25 HYDROXY 25.95 ng/mL Lipid [...] 9.2 mg/dL 01/13/2016 Vitamin D 25 Oh Laz7359 VITAMIN D, 25 HYDROXY 38.03 ng/mL Comp Metabolic Ujf487 NA 139 mEq/L 11/28/2015 Comp Metabolic Skk672 K 4.0 mEq/L 11/28/2015 Comp Metabolic Oto022 CL 105 mEq/L 11/28/2015 Comp Metabolic Fmt442 CO2 25.0 mEq/L 11/28/2015 Comp Metabolic Pxz739 ANION GAP 13 11/28/2015 Comp Metabolic Lzg275 GLUCOSE 100 mg/dL 11/28/2015 Comp Metabolic Dip934 Creat 1.1 mg/dL 11/28/2015 Comp Metabolic Xdd673 eGFR 55 ml/min/1.73m2 11/28/2015 Comp Metabolic Uii370 BUN 13 mg/dL 11/28/2015 Comp Metabolic Umt075 B/C Ratio 12.3 Ratio 11/28/2015 Comp Metabolic Okl771 CALCIUM 9.2 mg/dL 11/28/2015 Comp Metabolic Kpk738 ALK PHOS 85 U/L 11/28/2015 Comp Metabolic Vac693 AST(SGOT) 15 U/L 11/28/2015 Comp Metabolic Oth433 ALT(SGPT) 15 U/L 11/28/2015 Comp Metabolic Dam285 BILI T 0.5 mg/dL 11/28/2015 Comp Metabolic Uch556 ALBUMIN 3.7 g/dL 11/28/2015 Comp Metabolic Rpp373 TPRO 6.4 g/dL 11/28/2015 Comp Metabolic Ccx148 GLOB 2.7 g/dL 11/28/2015 Comp Metabolic Omr057 A/G Ratio 1.4 Ratio 11/28/2015 Comp Metabolic Pgb911 Osmo 278 mOsmo 11/28/2015 Tsh Ord6 hTSH II 1.98 uIU/mL 11/28/2015 Free T4 Evg871 FREE T4 1.04 ng/dL 11/28/2015 Cbc With [...] 30.9 pg 11/28/2015 Cbc With Differential Ord2 Hoke% 6.7 % 11/28/2015 Cbc With Differential Ord2 [...] 2.19 K/ul 11/28/2015 Cbc With Differential Ord2 [place] ABS# 0.6 K/ul 11/28/2015 Cbc With Differential Ord2 Eos ABS# 0.1 K/ul 11/28/2015 Cbc With Differential Ord2 Baso ABS# 0.1 K/ul 11/28/2015 Comp Metabolic Pge175 NA 135 mEq/L 10/15/2015 Comp Metabolic Qxp465 K 3.5 mEq/L 10/15/2015 Comp Metabolic Olx573 CL 100 mEq/L 10/15/2015 Comp Metabolic Lqy071 CO2 29.0 mEq/L 10/15/2015 Comp Metabolic Zhd569 ANION GAP 10 10/15/2015 Comp Metabolic Uiq893 GLUCOSE 88 mg/dL 10/15/2015 Comp Metabolic Gle254 Creat 0.9 mg/dL 10/15/2015 Comp Metabolic Xrf211 eGFR 67 ml/min/1.73m2 10/15/2015 Comp Metabolic Vbj564 BUN 16 mg/dL 10/15/2015 Comp Metabolic Fnc290 B/C Ratio 17.8 Ratio 10/15/2015 Comp Metabolic Vuk950 CALCIUM 9.4 mg/dL 10/15/2015 Comp Metabolic Lwq645 ALK PHOS 96 U/L 10/15/2015 Comp Metabolic Lns360 AST(SGOT) 15 U/L 10/15/2015 Comp Metabolic Hhj257 ALT(SGPT) -125 U/L 10/15/2015 Comp Metabolic Dzs194 BILI T 0.4 mg/dL 10/15/2015 Comp Metabolic Dgz149 ALBUMIN 4.2 g/dL 10/15/2015 Comp Metabolic Ayd244 TPRO 7.2 g/dL 10/15/2015 Comp Metabolic Xmf620 GLOB 3.1 g/dL 10/15/2015 Comp Metabolic Eep210 A/G Ratio 1.4 Ratio 10/15/2015 Comp Metabolic Kzb188 Osmo 271 mOsmo 10/15/2015 Comp Metabolic Oyo497 NA 135 mEq/L 10/15/2015 Comp Metabolic Vdx804 K 3.5 mEq/L 10/15/2015 Comp Metabolic Hpt508 CL 100 mEq/L 10/15/2015 Comp Metabolic Trm334 CO2 29.0 mEq/L 10/15/2015 Comp Metabolic Vky556 ANION GAP 10 10/15/2015 Comp Metabolic Pnp818 GLUCOSE 88 mg/dL 10/15/2015 Comp Metabolic Jso697 Creat 0.9 mg/dL 10/15/2015 Comp Metabolic Lyi077 eGFR 67 ml/min/1.73m2 10/15/2015 Comp Metabolic Qwr043 BUN 16 mg/dL 10/15/2015 Comp Metabolic Hmt008 B/C Ratio 17.8 Ratio 10/15/2015 Comp Metabolic Fpo549 CALCIUM 9.4 mg/dL 10/15/2015 Comp Metabolic Aby463 ALK PHOS 96 U/L 10/15/2015 Comp Metabolic Mgr497 AST(SGOT) 15 U/L 10/15/2015 Comp Metabolic Gyk466 ALT(SGPT) 14 U/L 10/15/2015 Comp Metabolic Rbc329 BILI T 0.4 mg/dL 10/15/2015 Comp Metabolic Kmt393 ALBUMIN 4.2 g/dL 10/15/2015 Comp Metabolic Pus205 TPRO 7.2 g/dL 10/15/2015 Comp Metabolic Lem538 GLOB 3.1 g/dL 10/15/2015 Comp Metabolic Hlg167 A/G Ratio 1.4 Ratio 10/15/2015 Comp Metabolic Amb996 Osmo 271 mOsmo 10/15/2015 Magnesium Ord90 Mag 2.2 mg/dL 10/15/2015 Magnesium Ord90 Mag 1.9 mg/dL 09/05/2015 Comp Metabolic Rbp786 NA 138 mEq/L 09/05/2015 Comp Metabolic Hjk766 K 3.7 mEq/L 09/05/2015 Comp Metabolic Akr571 CL 99 mEq/L 09/05/2015 Comp Metabolic Sco796 CO2 30.0 mEq/L 09/05/2015 Comp Metabolic Zvp633 ANION GAP 13 09/05/2015 Comp Metabolic Tvr649 GLUCOSE 97 mg/dL 09/05/2015 Comp Metabolic Nkn333 Creat 1.1 mg/dL 09/05/2015 Comp Metabolic Htf441 eGFR 54 ml/min/1.73m2 09/05/2015 Comp Metabolic Qhf729 BUN 18 mg/dL 09/05/2015 Comp Metabolic Kms045 B/C Ratio 16.7 Ratio 09/05/2015 Comp Metabolic Vuy324 CALCIUM 9.6 mg/dL 09/05/2015 Comp Metabolic Fhf807 ALK PHOS 96 U/L 09/05/2015 Comp Metabolic Zxo977 AST(SGOT) 15 U/L 09/05/2015 Comp Metabolic Oly448 ALT(SGPT) 14 U/L 09/05/2015 Comp Metabolic Hmi759 BILI T 0.5 mg/dL 09/05/2015 Comp Metabolic Wxd136 ALBUMIN 4.1 g/dL 09/05/2015 Comp Metabolic Wwd008 TPRO 7.0 g/dL 09/05/2015 Comp Metabolic Wom112 GLOB 3.0 g/dL 09/05/2015 Comp Metabolic Sjg974 A/G Ratio 1.4 Ratio 09/05/2015 Comp Metabolic Xfw711 Osmo 277 mOsmo 09/05/2015 Vitamin D 25 Oh Fty8280 VITAMIN D, 25 HYDROXY 22.39 ng/mL Magnesium Ord90 Mag 2.0 mg/dL 06/11/2015 Tsh Ord6 hTSH II 3.52 uIU/mL 06/11/2015 Comp Metabolic Lgd566 NA 135 mEq/L 06/11/2015 Comp Metabolic Uzm929 K 4.3 mEq/L 06/11/2015 Comp Metabolic Bcb069 CL 103 mEq/L 06/11/2015 Comp Metabolic Qnt394 CO2 25.0 mEq/L 06/11/2015 Comp Metabolic Bak418 ANION GAP 11 06/11/2015 Comp Metabolic Jsk224 GLUCOSE 75 mg/dL 06/11/2015 Comp Metabolic Usd423 Creat 0.9 mg/dL 06/11/2015 Comp Metabolic Wpk893 eGFR 69 ml/min/1.73m2 06/11/2015 Comp Metabolic Qhy296 BUN 22 mg/dL 06/11/2015 Comp Metabolic Fxh595 B/C Ratio 25.3 Ratio 06/11/2015 Comp Metabolic Hfd038 CALCIUM 9.2 mg/dL 06/11/2015 Comp Metabolic Juq106 ALK PHOS 88 U/L 06/11/2015 Comp Metabolic Vck777 AST(SGOT) 13 U/L 06/11/2015 Comp Metabolic Kfu938 ALT(SGPT) 15 U/L 06/11/2015 Comp Metabolic Txn644 BILI T 0.4 mg/dL 06/11/2015 Comp Metabolic Epg019 ALBUMIN 3.7 g/dL 06/11/2015 Comp Metabolic Mor224 TPRO 6.6 g/dL 06/11/2015 Comp Metabolic Sgj478 GLOB 2.9 g/dL 06/11/2015 Comp Metabolic Dam635 A/G Ratio 1.3 Ratio 06/11/2015 Comp Metabolic Xfl089 Osmo 272 mOsmo 06/11/2015 Free T4 Dys109 FREE T4 0.95 ng/dL 06/11/2015 Cbc With [...] 31.3 pg 06/11/2015 Cbc With Differential Ord2 Hoke% 7.4 % 06/11/2015 Cbc With Differential Ord2 [...] 2.57 K/ul 06/11/2015 Cbc With Differential Ord2 [place] ABS# 0.9 K/ul 06/11/2015 Cbc With Differential [...] 13.8 % 11/16/2014 Vitamin D 25 Oh Bif2873 VITAMIN D, 25 HYDROXY 22.85 ng/mL Lipid Ord30 CHOL 206 mg/dL 11/16/2014 Lipid Ord30 HDL 49.0 mg/dl 11/16/2014 Lipid Ord30 TRIG 104 mg/dL 11/16/2014 Lipid Ord30 LDL 136 mg/dL 11/16/2014 Lipid Ord30 C/HDL 4.2 Ratio 11/16/2014 Tsh Ord6 hTSH II 2.05 uIU/mL 11/16/2014 Comp Metabolic Tep410 NA 138 mEq/L 11/16/2014 Comp Metabolic Pah518 K 4.0 mEq/L 11/16/2014 Comp Metabolic Abz320 CL 104 mEq/L 11/16/2014 Comp Metabolic Hpq887 CO2 27.0 mEq/L 11/16/2014 Comp Metabolic Vlf500 ANION GAP 11 11/16/2014 Comp Metabolic Wij128 GLUCOSE 94 mg/dL 11/16/2014 Comp Metabolic Gra977 Creat 0.9 mg/dL 11/16/2014 Comp Metabolic Qum535 eGFR 64 ml/min/1.73m2 11/16/2014 Comp Metabolic Yiy627 BUN 12 mg/dL 11/16/2014 Comp Metabolic Ryd802 B/C Ratio 12.9 Ratio 11/16/2014 Comp Metabolic Ybc443 CALCIUM 9.4 mg/dL 11/16/2014 Comp Metabolic Cay561 ALK PHOS 88 U/L 11/16/2014 Comp Metabolic Mvo084 AST(SGOT) 14 U/L 11/16/2014 Comp Metabolic Aua568 ALT(SGPT) 12 U/L 11/16/2014 Comp Metabolic Vzj424 BILI T 0.6 mg/dL 11/16/2014 Comp Metabolic Hrw081 ALBUMIN 3.7 g/dL 11/16/2014 Comp Metabolic Qag420 TPRO 6.3 g/dL 11/16/2014 Comp Metabolic Vcw667 GLOB 2.6 g/dL 11/16/2014 Comp Metabolic Pmb097 A/G Ratio 1.4 Ratio 11/16/2014 Comp Metabolic Bhp000 Osmo 275 mOsmo 11/16/2014 %Hba1C Ctj930 % HbA1c 88141-9 5.7 % 11/16/2014 %Hba1C Uux991 Gluc Ave 117 mg/dL 11/16/2014 GFR CALC 2998105 GFR AA >60 ML/MIN 04/12/2013 GFR CALC 5556824 GFR NON-AA >60 ML/MIN 04/12/2013 TSH 4199413 TSH 2.194 uIU/ML 04/12/2013 VIT B 12 6257957 VIT B 12 415 PG/ML 04/12/2013 CBC 6274896 WBC 8.8 10e9/L 04/12/2013 CBC 4046647 RBC 4.59 10e12/L 04/12/2013 CBC 9001285 HGB 14.3 g/dL 04/12/2013 CBC 7664283 HCT DET 42.4 % 04/12/2013 CBC 9577538 MCV 92.4 fL 04/12/2013 CBC 7409733 MCH 31.2 pg 04/12/2013 CBC 4215956 MCHC 33.7 g/dL 04/12/2013 CBC 0412538 PLT 213 10e9/L 04/12/2013 CBC 7784426 MPV 12.8 fL 04/12/2013 CBC 5509887 LULU % 61.8 % 04/12/2013 CBC 9713647 LY % 29.2 % 04/12/2013 CBC 5094114 MON % 7.2 % 04/12/2013 CBC 6224151 EOS % 1.3 % 04/12/2013 CBC 7417273 BASO % 0.5 % 04/12/2013 CBC 9627133 RDW 12.6 % 04/12/2013 CBC 7142802 ABS LULU 5.44 10e9/L 04/12/2013 CBC 5299999 ABS LYMPH 2.57 10e9/L 04/12/2013 CBC 9372146 ABS MONO 0.63 10e9/L 04/12/2013 CBC 0284553 ABS EOS 0.11 10e9/L 04/12/2013 CBC 5150283 ABS BASO 0.04 10e9/L 04/12/2013 CBC 8581261 RDW-SD 41.3 fL 04/12/2013 FREE T4 3797654 FREE T4 1.09 NG/DL 04/12/2013 A1C HPLC 9241944 A1C HPLC 64258-8 5.4 % 04/12/2013 CHEM 14 5275715 AST 12 U/L 04/12/2013 CHEM 14 6882362 ALT 11 IU/L 04/12/2013 CHEM 14 7086813 BUN 14 MG/DL 04/12/2013 CHEM 14 2709264 ALBUMIN 4.1 GM/DL 04/12/2013 CHEM 14 7152423 CHLORIDE 105 MMOL/L 04/12/2013 CHEM 14 5716949 BILI TOT 0.6 MG/DL 04/12/2013 CHEM 14 2319280 ALK PHOS 81 U/L 04/12/2013 CHEM 14 7063524 SODIUM 138 MMOL/L 04/12/2013 CHEM 14 4359386 CREATININE 0.86 MG/DL 04/12/2013 CHEM 14 4961836 CALCIUM 9.8 MG/DL 04/12/2013 CHEM 14 1273319 POTASSIUM 4.1 MMOL/L 04/12/2013 CHEM 14 4066208 PROT TOT 6.6 GM/DL 04/12/2013 CHEM 14 8285774 GLUCOSE 112 MG/DL 04/12/2013 CHEM 14 8593912 BICARB 27 MMOL/L 04/12/2013 CHEM 14 6823109 ANION GAP 6 MEQ/L 04/12/2013 LIPID GRP HDL TEST 55 MG/DL 04/12/2013 LIPID GRP TRIG 107 MG/DL 04/12/2013 LIPID GRP TEST LDL 193 MG/DL 04/12/2013 LIPID GRP CHOL 269 MG/DL 04/12/2013 LIPID GRP RCHOL/HDL 4.89 RATIO 04/12/2013 NICOT QN S 1956265 NICOTIN S < 2.0 NG/ML 03/07/2012 NICOT QN S 2122801 XCOTININ S < 2.0 NG/ML 03/07/2012 CBC 3938054 WBC 8.1 10e9/L 03/02/2012 CBC 2328145 RBC 4.44 10e12/L 03/02/2012 CBC 4944364 HGB 13.8 g/dL 03/02/2012 CBC 9221577 HCT DET 41.3 % 03/02/2012 CBC 3269162 MCV 93.0 fL 03/02/2012 CBC 5975044 MCH 31.1 pg 03/02/2012 CBC 5770785 MCHC 33.4 g/dL 03/02/2012 CBC 8417364 PLT 188 10e9/L 03/02/2012 CBC 5480795 MPV 14.3 fL 03/02/2012 CBC 6006242 LULU % 61.5 % 03/02/2012 CBC 4351380 LY % 28.8 % 03/02/2012 CBC 7634733 MON % 8.0 % 03/02/2012 CBC 8552759 EOS % 1.1 % 03/02/2012 CBC 8270426 BASO % 0.6 % 03/02/2012 CBC 0062099 RDW 14.0 % 03/02/2012 CBC 2447440 ABS LULU 4.98 10e9/L 03/02/2012 CBC 7727422 ABS LYMPH 2.33 10e9/L 03/02/2012 CBC 9205687 ABS MONO 0.65 10e9/L 03/02/2012 CBC 5995562 ABS EOS 0.09 10e9/L 03/02/2012 CBC 3667781 ABS BASO 0.05 10e9/L 03/02/2012 CBC 5988946 RDW-SD 46.3 fL 03/02/2012 LIPID GRP HDL TEST 37 MG/DL 03/02/2012 LIPID GRP TRIG 136 MG/DL 03/02/2012 LIPID GRP TEST LDL 106 MG/DL 03/02/2012 LIPID GRP CHOL 170 MG/DL 03/02/2012 LIPID GRP RCHOL/HDL 4.59 RATIO 03/02/2012 GFR CALC GFR AA >60 ML/MIN 03/02/2012 GFR CALC 6975673 GFR NON-AA >60 ML/MIN 03/02/2012 FREE T4 6510446 FREE T4 1.09 NG/DL 03/02/2012 A1C HPLC 6278049 A1C HPLC 74334-3 5.4 % 03/02/2012 CHEM 14 0590846 AST 17 U/L 03/02/2012 CHEM 14 4426162 ALT 22 IU/L 03/02/2012 CHEM 14 8936997 BUN 15 MG/DL 03/02/2012 CHEM 14 2109735 ALBUMIN 4.0 GM/DL 03/02/2012 CHEM 14 6065326 CHLORIDE 107 MMOL/L 03/02/2012 CHEM 14 5061324 BILI TOT 0.4 MG/DL 03/02/2012 CHEM 14 9341527 ALK PHOS 83 U/L 03/02/2012 CHEM 14 8789831 SODIUM 141 MMOL/L 03/02/2012 CHEM 14 8935297 CREATININE 0.86 MG/DL 03/02/2012 CHEM 14 0712324 CALCIUM 9.5 MG/DL 03/02/2012 CHEM 14 1090689 POTASSIUM 4.0 MMOL/L 03/02/2012 CHEM 14 0470822 PROT TOT 6.6 GM/DL 03/02/2012 CHEM 14 6498154 GLUCOSE 102 MG/DL 03/02/2012 CHEM 14 2882167 BICARB 28 MMOL/L 03/02/2012 CHEM 14 3993056 ANION GAP 6 MEQ/L 03/02/2012 TSH 0469363 TSH 2.320 uIU/ML 03/02/2012 GFR CALC 0731684 GFR AA >60 ML/MIN 07/03/2011 GFR CALC 2564513 GFR NON-AA 54.0L ML/MIN 07/03/2011 CHEM 14 1248012 AST 15 U/L 07/03/2011 CHEM 14 7834779 ALT 30 IU/L 07/03/2011 CHEM 14 3101081 BUN 19 MG/DL 07/03/2011 CHEM 14 0664579 ALBUMIN 4.2 GM/DL 07/03/2011 CHEM 14 9952193 CHLORIDE 100 MMOL/L 07/03/2011 CHEM 14 0900509 BILI TOT 0.8 MG/DL 07/03/2011 CHEM 14 2033235 ALK PHOS 74 U/L 07/03/2011 CHEM 14 2244898 SODIUM 137 MMOL/L 07/03/2011 CHEM 14 9787478 CREATININE 1.03 MG/DL 07/03/2011 CHEM 14 4929178 CALCIUM 9.6 MG/DL 07/03/2011 CHEM 14 9514742 POTASSIUM 4.4 MMOL/L 07/03/2011 CHEM 14 1667385 PROT TOT 6.7 GM/DL 07/03/2011 CHEM 14 2775479 GLUCOSE 106 MG/DL 07/03/2011 CHEM 14 0965444 BICARB 28 MMOL/L 07/03/2011 CHEM 14 4495068 ANION GAP 9 MEQ/L 07/03/2011 URINALYSIS NONAUTO W/O SCOPE 89844 Specific [place] 1.010 DateTime(Free Text in Aprima) URINALYSIS NONAUTO W/O SCOPE 16288 PH 5 DateTime(Free Text in Aprima) URINALYSIS NONAUTO W/O SCOPE 60905 GLUCOSE neg DateTime( Free Text in Aprima) URINALYSIS NONAUTO W/O SCOPE 92133 Protein neg DateTime( Free Text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
[2018-06-03] MEDS: CYCLOPENTOLATE 1% (CYCLOGYL) 2 ML DROPS OP SCH ×3 (07:04→07:14)
[2018-06-03] MEDS: PHENYLEPHRINE 10% OPHTH (NEO-SYN) 5 ML BTL OU SCH ×3 (07:04→07:14)
--- OUTSIDE RECORDS SUMMARY | 2018-06-03 07:07 | XMS REPORT | CCD ---
Author Author [facility] Address [address] [place] [address] Phone Care Team Providers Care Senior Vice President Name Role Phone PP Unavailable CCM Unavailable Summary Purpose Interface Exchange Insurance Providers Payer name Policy type / Coverage type Covered republican ID Effective Begin Date Effective End Date WPS Medicare Part B Medicare Part B [id number] 2017 Unknown [employer] Medicare Part B [id number] Unknown Family history Father Diagnosis Age At Onset No Family Disease Entered N/A Runs in the family Diagnosis Age At Onset Diabetes Unknown Mother Diagnosis Age At Onset No Family Disease Entered N/A Social History Social History Element Codes Description Effective Dates Employment Unknown 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 03/17/2011 Active Obesity ICD-9: 278.00 [...] Start Date Stop Date Status Fill Instructions Tamiflu 75 mg capsule RxNorm: 521799 1 Capsule(s) PO BID 201805/14/2018 Active Tamiflu 75 mg capsule RxNorm: 914054 1 Capsule(s) PO BID 201805/09/2018 Inactive Kenalog 40 mg/mL suspension for injection RxNorm: 1415882 Milliliter(s) Inj 05/09/2018 05/09/2018 Inactive potassium chloride ER 10 mEq tablet,extended release RxNorm: 162372 1 Tablet(s) TAKE 1 CAPSULES BY MOUTH TWICE DAILY 05/02/2018 No Stop Date Active doxycycline hyclate 100 mg tablet RxNorm: 8027035 1 Tablet(s) PO BID 04/01/2018 03/31/2018 Inactive doxycycline hyclate 100 mg tablet RxNorm: 2809243 1 Tablet(s) PO BID 04/01/2018 04/10/2018 Inactive ketorolac 60 mg/2 mL intramuscular solution RxNorm: 0848532 Milliliter(s) IM 03/21/2018 03/21/2018 Inactive Voltaren 1 % topical gel RxNorm: 373879 4 Gram(s) TOP QID 03/1103/10/2018 Inactive Voltaren 1 % topical gel RxNorm: 450271 4 Gram(s) TOP QID 03/1104/09/2018 Inactive Xanax 0.25 mg tablet RxNorm: 120815 Tablet(s) PO TAKE ONE TABLET BY MOUTH EVERY 4 TO 6 HOURS NEEDED 03/09/20182018 Active potassium chloride ER 10 mEq tablet,extended release RxNorm: 946697 TAKE 2 CAPSULES BY MOUTH TWICE DAILY 02/28/2018 05/01/2018 Inactive Levaquin 500 mg tablet RxNorm: 904627 1 Tablet(s) PO daily 12/201701/31/2018 Inactive Macrobid 100 mg capsule RxNorm: 680300 1 Capsule(s) PO BID 01/06/2018 Inactive Macrobid 100 mg capsule RxNorm: 230006 1 Capsule(s) PO BID 12/30/2017 Inactive ondansetron 4 mg disintegrating tablet RxNorm: 028481 1 Tablet(s) PO Q4 PRN 10/22/2017 No Stop Date Active Xanax 0.25 mg tablet RxNorm: 689085 Tablet(s) PO TAKE ONE TABLET BY MOUTH EVERY 4 TO 6 HOURS NEEDED 07/29/20172017 Inactive Levaquin 500 mg tablet RxNorm: 335559 1 Tablet(s) PO daily 07/14/2017 Inactive Levaquin 500 mg tablet RxNorm: 952659 1 Tablet(s) PO daily 07/21/2017 Inactive Xarelto 20 mg tablet RxNorm: 3129050 1 Tablet(s) PO daily 06/2812/24/2017 Inactive Xarelto 20 mg tablet RxNorm: 2838768 1 Tablet(s) PO daily 06/2806/27/2017 Inactive potassium chloride ER 10 mEq tablet,extended release RxNorm: 514832 2 Capsule(s) PO BID 06/28/2017 12/24/2017 Inactive potassium chloride ER 10 mEq tablet,extended release RxNorm: 772048 2 Capsule(s) PO BID 06/28/2017 06/27/2017 Inactive prednisone 10 mg tablet RxNorm: 984042 Tablet(s) PO UD 201703/20/2018 Inactive 6,5,4,3,2,1 Vitamin D2 50,000 unit capsule RxNorm: 641366 1 Capsule(s) PO QW 04/26/2017 07/24/2017 Inactive Lexapro 10 mg tablet RxNorm: 211111 1 Tablet(s) PO QHS 201601/11/2017 Inactive Lexapro 10 mg tablet RxNorm: 676499 1 Tablet(s) PO QHS 201604/25/2017 Inactive famotidine 20 mg tablet RxNorm: 399405 1 Tablet(s) PO BID 01/0601/05/2017 Inactive famotidine 20 mg tablet RxNorm: 690327 1 Tablet(s) PO BID 01/0604/25/2017 Inactive doxazosin 2 mg tablet RxNorm: 460742 TAKE ONE-HALF TABLET BY MOUTH TWICE DAILY 12/17/2016 04/25/2017 Inactive Xanax 0.25 mg tablet RxNorm: 770680 Tablet(s) PO TAKE ONE TABLET BY MOUTH EVERY 4 TO 6 HOURS NEEDED 11/12/20162016 Inactive Xanax 0.25 mg tablet RxNorm: 347602 Tablet(s) PO TAKE ONE TABLET BY MOUTH EVERY 4 TO 6 HOURS NEEDED 11/12/20162016 Inactive Levaquin 500 mg tablet RxNorm: 368802 1 Tablet(s) PO daily 10/28/2016 Inactive Levaquin 500 mg tablet RxNorm: 578503 1 Tablet(s) PO daily 11/04/2016 Inactive Pyridium 200 mg tablet RxNorm: 8282778 1 Tablet(s) PO TID PRN 10/29/2016 04/25/2017 Inactive potassium chloride ER 10 mEq tablet,extended release RxNorm: 504051 2 Capsule(s) PO BID 10/20/2016 02/16/2017 Inactive potassium chloride ER 10 mEq tablet,extended release RxNorm: 713323 2 Capsule(s) PO BID 10/16/2016 10/19/2016 Inactive potassium chloride ER 10 mEq tablet,extended release RxNorm: 482871 1 Capsule(s) PO daily 10/15/2016 10/15/2016 Inactive potassium chloride 40 mEq/15 mL oral liquid RxNorm: 107753 7.5 Milliliter(s) PO BID 10/05/2016 10/11/2016 Inactive potassium chloride 40 mEq/15 mL oral liquid RxNorm: 791718 7.5 Milliliter(s) PO BID 10/05/2016 10/04/2016 Inactive potassium chloride 40 mEq/15 mL oral liquid RxNorm: 556048 7.5 Milliliter(s) PO BID 10/05/2016 10/04/2016 Inactive doxycycline hyclate 100 mg tablet RxNorm: 449652 1 Tablet(s) PO BID 09/30/2016 10/09/2016 Inactive Vitamin D2 50,000 unit capsule RxNorm: 304783 1 Capsule(s) PO QW 09/15/2016 09/14/2016 Inactive Vitamin D2 50,000 unit capsule RxNorm: 680276 1 Capsule(s) PO QW 09/15/2016 12/13/2016 Inactive doxycycline hyclate 100 mg tablet RxNorm: 259451 1 Tablet(s) PO BID 08/11/2016 08/24/2016 Inactive doxycycline hyclate 100 mg tablet RxNorm: 783477 1 Tablet(s) PO BID 07/24/2016 07/28/2016 Inactive mupirocin 2 % topical ointment RxNorm: 463016 1 Application TOP BID 07/24/2016 07/23/2016 Inactive mupirocin 2 % topical ointment RxNorm: 619670 1 Application TOP BID 07/24/2016 07/30/2016 Inactive doxycycline hyclate 100 mg tablet RxNorm: 832452 1 Tablet(s) PO BID 07/24/2016 07/23/2016 Inactive potassium chloride ER 10 mEq tablet,extended release RxNorm: 295455 2 Tablet(s) PO BID 07/20/2016 10/04/2016 Inactive Lasix 20 mg tablet RxNorm: 658906 1 Tablet(s) PO PRN 2016 No Stop Date Active PRN for swelling Xanax 0.25 mg tablet RxNorm: 600994 Tablet(s) PO TAKE ONE TABLET BY MOUTH EVERY 4 TO 6 HOURS NEEDED 06/19/20162016 Inactive prednisone 20 mg tablet RxNorm: 134728 1 Tablet(s) PO BID 06/0306/07/2016 Inactive potassium chloride ER 10 mEq tablet,extended release RxNorm: 802117 2 Tablet(s) PO BID 05/06/2016 05/05/2016 Inactive potassium chloride ER 10 mEq tablet,extended release RxNorm: 056627 2 Tablet(s) PO BID 05/06/2016 06/04/2016 Inactive Levaquin 500 mg tablet RxNorm: 376392 1 Tablet(s) PO daily 03/30/2016 Inactive Levaquin 500 mg tablet RxNorm: 648098 1 Tablet(s) PO daily 04/06/2016 Inactive prednisone 20 mg tablet RxNorm: 499533 1 Tablet(s) PO BID 02/2402/29/2016 Inactive prednisone 20 mg tablet RxNorm: 098495 1 Tablet(s) PO BID 02/2402/24/2016 Inactive Flonase 50 mcg/actuation nasal spray,suspension RxNorm: 3163589 2 Cardale NASAL daily 02/18/2016 02/27/2016 Inactive doxycycline hyclate 100 mg tablet RxNorm: 375668 1 Tablet(s) PO BID 02/18/2016 02/27/2016 Inactive doxycycline hyclate 100 mg tablet RxNorm: 964865 1 Tablet(s) PO BID 02/18/2016 02/17/2016 Inactive cyclobenzaprine 5 mg tablet RxNorm: 187225 1-2 Tablet(s) PO TID as needed 02/12/2016 02/21/2016 Inactive cyclobenzaprine 5 mg tablet RxNorm: 694798 1-2 Tablet(s) PO TID as needed 02/12/2016 02/11/2016 Inactive Xanax 0.25 mg tablet RxNorm: 648528 Tablet(s) PO TAKE ONE TABLET BY MOUTH EVERY 4 TO 6 HOURS NEEDED 01/20/20162016 Inactive (Appended: Controlled substance eRx refill - RxReferenceNumber: [id number]) metoprolol tartrate 25 mg tablet RxNorm: 857171 1/2 Tablet(s) PO BID 12/13/2015 04/10/2016 Inactive doxazosin 2 mg tablet RxNorm: 820773 1 Tablet(s) PO QHS 201512/16/2016 Inactive metoprolol tartrate 25 mg tablet RxNorm: 140853 1/2 Tablet(s) PO BID 12/09/2015 12/12/2015 Inactive Vitamin D2 50,000 unit capsule RxNorm: 781971 1 Capsule(s) PO QW 12/09/2015 02/06/2016 Inactive Lasix 20 mg tablet RxNorm: 248342 1 Tablet(s) PO PRN 201507/05/2016 Inactive PRN for swelling potassium chloride ER 20 mEq tablet,extended release RxNorm: 695251 1 Tablet(s) PO daily as needed When taking lasix 10/03/2015 04/26/2016 Inactive cyanocobalamin (vit B-12) 1,000 mcg/mL injection solution RxNorm: 647641 Milliliter(s) Inj 09/13/2015 09/13/2015 Inactive doxycycline hyclate 100 mg tablet RxNorm: 844404 1 Tablet(s) PO BID 09/12/2015 09/18/2015 Inactive potassium chloride ER 10 mEq tablet,extended release RxNorm: 063810 1 Tablet(s) PO daily as needed When taking lasix 09/04/2015 10/02/2015 Inactive Lasix 20 mg tablet RxNorm: 1 Tablet(s) PO PRN 201510/02/2015 Inactive PRN for swelling doxycycline hyclate 100 mg tablet RxNorm: 693790 1 Tablet(s) PO BID 08/26/2015 08/25/2015 Inactive doxycycline hyclate 100 mg tablet RxNorm: 907216 1 Tablet(s) PO BID 08/26/2015 09/01/2015 Inactive mupirocin 2 % topical ointment RxNorm: 541104 1 Application TOP BID 08/02/2015 08/01/2015 Inactive mupirocin 2 % topical ointment RxNorm: 061430 1 Application TOP BID 08/02/2015 08/08/2015 Inactive metoprolol tartrate 50 mg tablet RxNorm: 429080 2 tabs in morning and 1 tablet at night dose PO as directed 06/13/201510/23 Inactive 2 tabs in the morning, and 1 in the evening Benicar 40 mg tablet RxNorm: 840255 1 Tablet(s) PO daily 201510/21/2015 Inactive Benicar 40 mg tablet RxNorm: 478938 1 Tablet(s) PO daily 201506/12/2015 Inactive Vitamin D2 50,000 unit capsule RxNorm: 702081 1 Capsule(s) PO QW 06/11/2015 12/07/2015 Inactive Xanax 0.25 mg tablet RxNorm: 397938 Tablet(s) PO TAKE ONE TABLET BY MOUTH EVERY 4 TO 6 HOURS NEEDED 06/06/20152015 Inactive (Appended: Controlled substance eRx refill - RxReferenceNumber: [id number]) Levaquin 500 mg tablet RxNorm: 194367 1 Tablet(s) PO daily 11/201510/28/2015 Inactive Kenalog 40 mg/mL suspension for injection RxNorm: 1104961 Milliliter(s) Inj 03/27/2015 03/27/2015 Inactive Kenalog 40 mg/mL suspension for injection RxNorm: 5574435 Milliliter(s) Inj 12/11/2014 12/11/2014 Inactive Vitamin D2 50,000 unit capsule RxNorm: 114932 1 Capsule(s) PO QW 12/05/2014 06/02/2015 Inactive [SAVINGS FOR NON-COVERED DRUGS -- BIN:[id number], PCN: ASPROD1, Group: XXXXX, ID# [id number], Questions: . THIS IS NOT INSURANCE.] Pradaxa 150 mg capsule RxNorm: 1484830 Capsule(s) PO BID 201409/08/2015 Inactive TAKE 1 CAPSULE BY MOUTH TWICE DAILY Vitamin D2 50,000 unit capsule RxNorm: 187883 1 Capsule(s) PO QW 12/04/2014 12/04/2014 Inactive [SAVINGS FOR NON-COVERED DRUGS -- BIN:[id number], PCN: ASPROD1, Group: XXXXX, ID# [id number], Questions: . THIS IS NOT INSURANCE.] Lasix 20 mg tablet RxNorm: 925722 1 Tablet(s) PO PRN 201411/25/2014 Inactive PRN for swelling Levaquin 500 mg tablet RxNorm: 965576 1 Tablet(s) PO daily 01/201511/25/2014 Inactive Levaquin 500 mg tablet RxNorm: 120104 1 Tablet(s) PO daily 01/201512/02/2014 Inactive Lasix 20 mg tablet RxNorm: 714875 1 Tablet(s) PO PRN 201409/03/2015 Inactive PRN for swelling nitrofurantoin 100 mg capsule RxNorm: 698028 1 Capsule(s) PO BID 11/12/2014 11/17/2014 Inactive Macrobid 100 mg capsule RxNorm: 127654 1 Capsule(s) PO BID 11/18/2014 Inactive Macrobid 100 mg capsule RxNorm: 363180 1 Capsule(s) PO BID 11/11/2014 Inactive Levaquin 500 mg tablet RxNorm: 588246 1 Tablet(s) PO daily 11/11/2014 Inactive metoprolol tartrate 50 mg tablet RxNorm: 692065 2 tabs in morning and 1 tablet at night dose PO as directed 10/25/201405/21 Inactive 2 tabs in the morning, and 1 in the evening Xanax 0.25 mg tablet RxNorm: 248330 Tablet(s) PO TAKE ONE TABLET BY MOUTH EVERY 4 TO 6 HOURS NEEDED 08/30/20142014 Inactive (Appended: Controlled substance eRx refill - RxReferenceNumber: [id number]) Levaquin 500 mg tablet RxNorm: 466478 1 Tablet(s) PO daily 07/31/2014 Inactive Levaquin 500 mg tablet RxNorm: 112949 1 Tablet(s) PO daily 08/07/2014 Inactive Vitamin D2 50,000 unit capsule RxNorm: 043773 1 Capsule(s) PO QW 05/16/2014 2014 Inactive [SAVINGS FOR NON-COVERED DRUGS -- BIN:570030, PCN: ASPROD1, Group: XXXXX, ID# [id number], Questions: . THIS IS NOT INSURANCE.] Zithromax 500 mg tablet RxNorm: 980727 1 Tablet(s) PO daily 05/10/2014 Inactive Zithromax 500 mg tablet RxNorm: 423726 1 Tablet(s) PO daily 05/15/2014 Inactive [SAVINGS FOR NON-COVERED DRUGS -- BIN:625599, PCN: ASPROD1, Group: XXXXX, ID# [id number], Questions: . THIS IS NOT INSURANCE.] prednisone 20 mg tablet RxNorm: 417017 Tablet(s) PO 3daily x 2days, then 2daily x2days, then 1daily x2days, then 1/2 daily x 2days then stop 03/13/2014 2014 Inactive [SAVINGS FOR UNINSURED PATIENTS -- BIN:156263, PCN: ASPROD1, Group: [id number], ID# [id number], Process claim through [employer], for questions: [phone]. THIS IS NOT INSURANCE.] Levaquin 500 mg tablet RxNorm: 080564 1 Tablet(s) PO daily TAKE ONE TABLET BY MOUTH ONCE DAILY take with benadryl 03/13/2014 03/22/2014 Inactive [SAVINGS FOR UNINSURED PATIENTS -- BIN:345734, PCN: ASPROD1, Group: [id number], ID# [id number], Process claim through [employer], for questions: . THIS IS NOT INSURANCE.] Levaquin 500 mg tablet RxNorm: 153943 1 Tablet(s) PO daily TAKE ONE TABLET BY MOUTH ONCE DAILY take with benadryl 02/26/2014 03/07/2014 Inactive pt to pick up worker today 01/06/14 [SAVINGS FOR UNINSURED PATIENTS -- BIN:835117, PCN: ASPROD1, Group: LIU, ID# [id number], Process claim through [employer], for questions: [phone]. THIS IS NOT INSURANCE.] Xanax 0.25 mg tablet RxNorm: 260176 Tablet(s) PO TAKE ONE TABLET BY MOUTH EVERY 4 TO 6 HOURS NEEDED 02/05/20142013 Inactive (Appended: Controlled substance eRx refill - RxReferenceNumber: [id number]) prednisone 20 mg tablet RxNorm: 438422 2 Tablet(s) PO QAM 01/0601/10/2014 Inactive call pt when ready for pick up worker today 01/06/14 Levaquin 500 mg tablet RxNorm: 324610 1 Tablet(s) PO daily TAKE ONE TABLET BY MOUTH ONCE DAILY take with benadryl 01/06/2014 01/12/2014 Inactive pt to pick up worker today 01/06/14 prednisone 20 mg tablet RxNorm: 650716 Tablet(s) PO 3daily x 2days, then 2daily x2days, then 1daily x2days, then 1/2 daily x 2days then stop 12/13/2013 03/12/2014 Inactive Levaquin 500 mg tablet RxNorm: 969362 1 Tablet(s) PO daily TAKE ONE TABLET BY MOUTH ONCE DAILY take with benadryl 12/13/2013 12/19/2013 Inactive Vitamin D2 50,000 unit capsule RxNorm: 942921 1 Capsule(s) PO QW 12/12/2013 03/11/2014 Inactive weekly x 12 weeks Vitamin D2 50,000 unit capsule RxNorm: 402233 1 Capsule(s) PO QW 12/12/2013 12/11/2013 Inactive metoprolol tartrate 50 mg tablet RxNorm: 090511 2 tabs in morning and 1 tablet at night dose PO as directed 11/03/201305/31 Inactive 2 tabs in the morning, and 1 in the evening Bactroban 2 % topical ointment RxNorm: 269076 1 Application TOP BID 10/30/2013 11/08/2013 Inactive Bactroban 2 % topical ointment RxNorm: 406340 1 Application TOP BID 10/30/2013 10/29/2013 Inactive Lasix 40 mg tablet RxNorm: 312162 1 Tablet(s) PO daily as needed 10/23/2013 2014 Inactive metoprolol tartrate 50 mg tablet RxNorm: 577015 1 Tablet(s) PO BID 08/28/2013 09/26/2013 Inactive 2 tabs in the morning, and 1 in the evening metoprolol tartrate 50 mg tablet RxNorm: 317986 1 Tablet(s) PO BID 08/28/2013 08/27/2013 Inactive 2 tabs in the morning, and 1 in the evening Lasix 40 mg tablet RxNorm: 1 Tablet(s) PO daily 201310/22/2013 Inactive Lasix 40 mg tablet RxNorm: 376896 1 Tablet(s) PO daily 201308/07/2013 Inactive potassium chloride ER 10 mEq tablet,extended release RxNorm: 935443 1 Tablet(s) PO BID 07/14/2013 2014 Inactive Lipitor 20 mg tablet RxNorm: 784534 1 Tablet(s) PO daily 201307/08/2014 Inactive generic ok Xanax 0.25 mg tablet RxNorm: 896594 Tablet(s) PO TAKE 1 TABLET BY MOUTH EVERY 4 TO 6 HOURS NEEDED 07/14/20132013 Inactive (Appended: Controlled substance eRx refill - RxReferenceNumber: [id number]|1|0|1) Xanax 0.25 mg tablet RxNorm: 223094 Tablet(s) PO TAKE ONE TABLET BY MOUTH EVERY 4 TO 6 HOURS NEEDED 07/14/20132013 Inactive (Appended: Controlled substance eRx refill - RxReferenceNumber: [id number]) metoprolol succinate ER 50 mg tablet,extended release 24 hr RxNorm: 430993 100mg q am 50 in even Tablet(s) PO 07/14/2013 Inactive Levaquin 500 mg tablet RxNorm: 964196 Tablet(s) PO TAKE ONE TABLET BY MOUTH ONCE DAILY 07/13/2013 12/12/2013 Inactive Levaquin 500 mg tablet RxNorm: 542903 Tablet(s) PO TAKE ONE TABLET BY MOUTH ONCE DAILY 07/13/2013 10/22/2013 Inactive Levaquin 500 mg tablet RxNorm: 198516 1 Tablet(s) PO daily 02/201305/22/2013 Inactive Levaquin 500 mg tablet RxNorm: 494543 1 Tablet(s) PO daily 05/15/2013 Inactive Lipitor 20 mg tablet RxNorm: 628990 1 Tablet(s) PO daily 201307/13/2013 Inactive generic ok Kenalog 40 mg/mL suspension for injection RxNorm: 1962680 1 Milliliter(s) Inj 04/14/2013 04/14/2013 Inactive Lipitor 20 mg tablet RxNorm: 802515 1 Tablet(s) PO daily 201304/16/2013 Inactive Lipitor 20 mg tablet RxNorm: 306529 1 Tablet(s) PO daily 201304/13/2013 Inactive metoprolol succinate ER 50 mg tablet,extended release 24 hr RxNorm: 838823 100mg q am 50 in even Tablet(s) PO 04/14/2013 Inactive Levaquin 500 mg tablet RxNorm: 785609 1 Tablet(s) PO daily 04/20/2013 Inactive Carafate 1 gram tablet RxNorm: 510077 1 Tablet(s) PO QID 201303/30/2013 Inactive Carafate 1 gram tablet RxNorm: 343856 1 Tablet(s) PO QID 201304/23/2013 Inactive Zithromax Z-Preston 250 mg tablet RxNorm: 147470 Tablet(s) PO zpack as directed 01/31/2013 04/12/2013 Inactive Zofran 4 mg tablet RxNorm: 526560 1 Tablet(s) PO Q6 PRN 12/0704/12/2013 Inactive Xanax 0.25 mg tablet RxNorm: 189230 Tablet(s) PO TAKE 1 TABLET BY MOUTH EVERY 4 TO 6 HOURS NEEDED 06/20/20122013 Inactive (Appended: Controlled substance eRx refill - RxReferenceNumber: [id number]|1|0|1) Xanax 0.25 mg tablet RxNorm: 657494 1 Tablet(s) PO Q4-6H q 4-6 hrs prn 06/20/2012 No Stop Date Active doxycycline monohydrate 100 mg tablet RxNorm: 9263397 1 Tablet(s) PO BID 05/17/2012 05/26/2012 Inactive doxycycline monohydrate 100 mg tablet RxNorm: 9555262 1 Tablet(s) PO BID 04/11/2012 04/20/2012 Inactive Kenalog 40 mg/mL Susp for Injection RxNorm: 2434011 1 Milliliter(s) Inj 04/11/2012 04/11/2012 Inactive metoprolol succinate ER 50 mg tablet,extended release 24 hr RxNorm: 072585 Tablet (s) PO TAKE 1 & 1/2 TABLETS BY MOUTH TWICE DAILY 02/01/2012 04/13/2013 Inactive Lipitor 40 mg tablet RxNorm: 471405 Tablet(s) PO TAKE 1 TABLET BY MOUTH EVERY DAY 02/01/2012 04/12/2013 Inactive Pradaxa 150 mg capsule RxNorm: 0818463 Capsule(s) PO 201112/03/2014 Inactive TAKE 1 CAPSULE BY MOUTH TWICE DAILY Xanax 0.25 mg tablet RxNorm: 079042 1 Tablet(s) PO Q4-6H q 4-6 hrs prn 12/28/2011 06/20/2012 Inactive metoprolol succinate ER 50 mg tablet,extended release 24 hr RxNorm: 650280 Tablet (s) PO 12/28/2011 01/31/2012 Inactive TAKE 1 & 1/2 TABLETS BY MOUTH TWICE DAILY Singulair 10 mg tablet RxNorm: 870214 Tablet(s) PO 12/28/2011 04/13/2013 Inactive TAKE ONE TABLET BY MOUTH DAILY clindamycin 150 mg capsule RxNorm: 131011 1 Capsule(s) PO QID 11/25/2011 12/01/2011 Inactive Influenza Virus Vaccine 0.5 mL RxNorm: IM 11/11/2011 11/11/2011 Inactive Pneumovax 23 25 mcg/0.5 mL Injection RxNorm: 677581 Milliliter(s) Inj 11/11/2011 11/11/2011 Inactive Biaxin 500 mg tablet RxNorm: 604976 1 Tablet(s) PO BID 201110/30/2011 Inactive Flagyl 500 mg tablet RxNorm: 217551 1 Tablet(s) PO TID 201109/03/2011 Inactive Flagyl 500 mg tablet RxNorm: 048800 1 Tablet(s) PO TID 201109/10/2011 Inactive doxycycline hyclate 100 mg tablet RxNorm: 8228298 1 Tablet(s) PO BID 09/04/2011 09/10/2011 Inactive doxycycline hyclate 100 mg tablet RxNorm: 8757889 1 Tablet(s) PO BID 09/04/2011 09/03/2011 Inactive Xopenex 1.25 mg/3 mL Neb Solution RxNorm: 564702 1 Unit(s) INH Q4 PRN 08/18/2011 12/15/2011 Inactive 1 box Xopenex 1.25 mg/3 mL Neb Solution RxNorm: 707072 1 Milliliter(s) INH Q4 PRN 08/18/2011 08/17/2011 Inactive 1 box Zithromax Z-Preston 250 mg Tab RxNorm: 094788 Tablet(s) PO UD 08/1008/11/2011 Inactive doxycycline hyclate 100 mg Tab RxNorm: 2981739 1 Tablet(s) PO BID 08/11/2011 08/11/2011 Inactive prednisone 10 mg Tab RxNorm: 881564 1 Tablet(s) PO BID q a.m. and q NOON x 5 days 08/11/2011 08/10/2011 Inactive prednisone 10 mg Tab RxNorm: 628109 1 Tablet(s) PO BID q a.m. and q NOON x 5 days 08/11/2011 08/15/2011 Inactive Kenalog 40 mg/mL Susp for Injection RxNorm: 5556682 1 Milliliter(s) Inj 08/11/2011 08/11/2011 Inactive doxycycline hyclate 100 mg Tab RxNorm: 7296859 1 Tablet(s) PO BID 08/11/2011 08/10/2011 Inactive nystatin 100,000 unit/mL Oral Susp RxNorm: 732934 6 Milliliter(s) PO QID 08/10/2011 08/16/2011 Inactive Jamie 60 mg Tab RxNorm: 078180 1 Tablet(s) PO daily 201101/23/2012 Inactive Jamie 60 mg Tab RxNorm: 112048 1 Tablet(s) PO daily 201107/27/2011 Inactive potassium chloride ER 10 mEq tablet,extended release RxNorm: 348581 1 Tablet(s) PO BID 07/27/2011 08/19/2012 Inactive Synthroid 75 mcg Tab RxNorm: 745899 Tablet(s) PO 07/06/2011 07/29/2012 Inactive one tab wednesday1/2 tab other days potassium chloride ER 10 mEq Tab RxNorm: 161204 1 Tablet(s) PO BID 07/02/2011 07/26/2011 Inactive Lasix 40 mg tablet RxNorm: 914981 1 Tablet(s) PO daily 201112/28/2011 Inactive Nexium 40 mg Capsule, delayed release RxNorm: 142253 1 Capsule(s) PO daily 06/25/2011 11/24/2011 Inactive Lexapro 10 mg Tab RxNorm: 960937 1 Tablet(s) PO daily 201107/14/2011 Inactive Carafate 100 mg/mL Oral Susp RxNorm: 613079 10 Milliliter(s) PO QID 06/25/2011 10/20/2011 Inactive dispense qs x 1 month nystatin 100,000 unit/mL Oral Susp RxNorm: 815943 3 Milliliter(s) PO QID swish, gargle, then swallow four times daily. 06/25/2011 07/14/2011 Inactive dispense qs x 10 days. Mucinex 1,200 mg 12 hr Tab RxNorm: 229083 1 Tablet(s) PO BID 07/21/2011 Inactive Lipitor 40 mg tablet RxNorm: 028810 1 Tablet(s) PO daily 201112/18/2011 Inactive lactobacillus acidophilus Cap RxNorm: 2 Capsule(s) PO BID 08/201107/14/2011 Inactive Mucinex 1,200 mg 12 hr Tab RxNorm: 652618 1 Tablet(s) PO BID 06/21/2011 Inactive lactobacillus acidophilus Cap RxNorm: 1 Capsule(s) PO BID 06/21/2011 Inactive Kenalog 40 mg/mL Susp for Injection RxNorm: 7796749 1 Milliliter(s) Inj 06/15/2011 06/15/2011 Inactive Flagyl 500 mg Tab RxNorm: 882536 1 Tablet(s) PO TID 201107/14/2011 Inactive doxycycline hyclate 100 mg Cap RxNorm: 4585966 1 Capsule(s) PO BID 06/15/2011 07/14/2011 Inactive clarithromycin 250 mg Tab RxNorm: 200382 1 Tablet(s) PO BID 07/14/2011 Inactive Xanax 0.25 mg tablet RxNorm: 396845 1 Tablet(s) PO Q4-6H q 4-6 hrs prn 05/27/2011 07/16/2011 Inactive Lasix 40 mg Tab RxNorm : 454692 3 Tablet(s) PO as directed 2 q am and 1 q noon 05/27/2011 07/01/2011 Inactive potassium chloride ER 10 mEq Tab RxNorm: 618600 1 Tablet(s) PO BID 05/27/2011 05/26/2011 Inactive KCL 10 meq RxNorm: 1 PO BID 05/27/201112/2011 Inactive potassium chloride ER 10 mEq Tab RxNorm: 719277 1 Tablet(s) PO BID 05/27/2011 06/25/2011 Inactive Pradaxa 75 mg Cap RxNorm: 4806637 2 Capsule(s) PO daily 09/29/2011 Inactive Biaxin 500 mg Tab RxNorm: 239289 1 Tablet(s) PO BID 201103/16/2011 Inactive Biaxin 500 mg Tab RxNorm: 321787 1 Tablet(s) PO BID 201107/14/2011 Inactive azithromycin 250 mg Tab RxNorm: 513473 1 Tablet(s) PO daily two by mouth daily x 3 days, then daily thereafter 02/06/2011 07/14/2011 Inactive two by mouth daily x 3 days, then daily thereafter until supply is exhausted azithromycin 250 mg Tab RxNorm: 184099 1 Tablet(s) PO daily two by mouth daily x 3 days, then daily thereafter 02/06/2011 02/05/2011 Inactive two by mouth daily x 3 days, then daily thereafter until supply is exhausted azithromycin 250 mg Tab RxNorm: 960155 1 Tablet(s) PO daily two by mouth daily x 3 days, then daily thereafter 02/06/2011 02/05/2011 Inactive two by mouth daily x 3 days, then daily thereafter until supply is exhausted Valturna 300 mg-320 mg Tab RxNorm: 5632513 Tablet(s) PO 201007/14/2011 Inactive TAKE 1 TABLET BY MOUTH EVERY DAY Kenalog 40 mg/mL Susp for Injection RxNorm: 7951102 2 Milliliter(s) Inj 11/20/2010 11/20/2010 Inactive Avelox 400 mg Tab RxNorm: 227724 1 Tablet(s) PO daily 201007/14/2011 Inactive Biaxin 500 mg Tab RxNorm: 595899 1 Tablet(s) PO BID 201011/15/2010 Inactive Pradaxa 150 mg Cap RxNorm: 3316451 1 Capsule(s) PO BID 201007/14/2011 Inactive Zyrtec oral RxNorm: 46874 oral No Start Date Active doxazosin 2 mg tablet RxNorm: 728019 1/2 Tablet(s) PO BID No Start Date 12/08/2015 Inactive Pyridium 200 mg tablet RxNorm: 5974825 1 Tablet(s) PO TID PRN No Start Date 10/28/2016 Inactive ondansetron 4 mg disintegrating tablet RxNorm: 547188 1 Tablet(s) PO Q4 PRN No Start Date 10/21/2017 Inactive Pradaxa 75 mg Cap RxNorm: 2374940 1 Capsule(s) PO daily No Start Date 05/04/2011 Inactive Singulair 10 mg tablet RxNorm: 799697 1 Tablet(s) PO daily No Start Date 07/14/2011 Inactive hydrocodone-acetaminophen 5 mg-325 mg tablet RxNorm: 968055 1 Tablet(s) PO Q6 PRN No Start Date 04/12/2013 Inactive Toprol XL 100 mg 24 hr Tab RxNorm: 034209 1 Tablet(s) PO BID No Start Date 07/14/2011 Inactive Zofran 4 mg tablet RxNorm: 975078 1 Tablet(s) PO Q6 PRN No Start Date 12/06/2012 Inactive Vitamin D2 50,000 unit capsule RxNorm: 428241 1 Capsule(s) PO QW No Start Date 05/15/2014 Inactive prednisone 10 mg tablet RxNorm: 206782 Tablet(s) PO UD No Start Date 06/15/2017 Inactive 6,5,4,3,2,1 Lipitor 40 mg Tab RxNorm: 521121 1 Tablet(s) PO daily No Start Date 06/21/2011 Inactive Trilipix 135 mg Cap RxNorm: 008349 Capsule(s) PO No Start Date 11/26/2010 Inactive Eliquis 5 mg tablet RxNorm: 5239781 1 Tablet(s) PO BID No Start Date 12/08/2015 Inactive KCL 10 meq RxNorm: 1 PO BID No Start Date 05/26/2011 Inactive Diovan 80 mg Tab RxNorm: 180388 1 Tablet(s) PO QHS No Start Date 07/14/2011 Inactive Lipitor 20 mg tablet RxNorm: 281759 1 Tablet(s) PO daily No Start Date 04/13/2013 Inactive Zithromax Z-Preston 250 mg tablet RxNorm: 589594 Tablet(s) PO No Start Date 01/30/2013 Inactive aspirin 81 mg Tab, Delayed Release RxNorm: 292454 1 Tablet(s) PO daily No Start Date 07/14/2011 Inactive prednisone 20 mg Tab RxNorm: 978389 Tablet(s) PO UD 3 tabs x 1 day, then 2 tabs daily x 2 days then 1 tab daily x 1 days, 1/2 daily x 1 day then 1/2 QOD x 2 doses then stop No Start Date 07/14/2011 Inactive Flonase 50 mcg/actuation Nasal Cardale RxNorm: 5723279 2 Cardale NASAL daily No Start Date 02/17/2016 Inactive hydrocodone 2.5 mg-guaifenesin 200 mg/5 mL syrup RxNorm: 126883 10 Unit Dose PO Q6 PRN No Start Date 04/25/2017 Inactive potassium chloride ER 10 mEq tablet,extended release RxNorm: 630265 1 Tablet(s) PO daily No Start Date 10/14/2016 Inactive Diovan 160 mg Tab RxNorm: 309524 1 Tablet(s) PO QHS No Start Date 12/20/2011 Inactive Lasix 40 mg Tab RxNorm : 605289 3 Tablet(s) PO as directed 2 q am and 1 q noon No Start Date 05/26/2011 Inactive metoprolol succinate ER 50 mg tablet,extended release 24 hr RxNorm: 649756 1 1 / 2 Tablet(s) PO BID No Start Date 2011 Inactive Carafate 1 gram Tab RxNorm: 893036 1 Tablet(s) PO TID No Start Date 07/14/2011 Inactive doxycycline hyclate 100 mg tablet RxNorm: 476117 1 Tablet(s) PO BID No Start Date 08/10/2016 Inactive Zithromax Z-Preston 250 mg Tab RxNorm: 431315 Oral No Start Date 08/10/2011 Inactive prednisone 20 mg Tab RxNorm: 242033 Tablet(s) PO No Start Date 04/06/2011 Inactive 3 tabs x 2 days, 2 tabs x 2 days, 1 tab x 2 days, 1/2 daily x 4 days then stop Bentyl 10 mg Cap RxNorm: 263558 1 Capsule(s) PO BID No Start Date 07/14/2011 Inactive Xarelto 15 mg tablet RxNorm: 4248247 1 Tablet(s) PO daily No Start Date 06/27/2017 Inactive Valturna 300 mg-320 mg Tab RxNorm: 1993361 1 Tablet(s) PO daily No Start Date 01/19/2011 Inactive Vitamin D 1,000 unit Tab RxNorm: 433890 1 Tablet(s) PO daily No Start Date 07/14/2011 Inactive Lexapro 10 mg Tab RxNorm: 877699 1 Tablet(s) PO daily No Start Date 04/06/2011 Inactive Synthroid 75 mcg Tab RxNorm: 299782 Tablet(s) PO No Start Date 07/05/2011 Inactive Protonix 40 mg Tab RxNorm: 547667 1 Tablet(s) PO daily No Start Date 07/14/2011 Inactive ranitidine 150 mg tablet RxNorm: 035526 1 Tablet(s) PO BID No Start Date 04/25/2017 Inactive prednisone 20 mg tablet RxNorm: 604117 Tablet(s) PO 3daily x 2days, then 2daily x2days, then 1daily x2days, then 1/2 daily x 2days then stop No Start Date 12/12/2013 Inactive Nexium 40 mg Cap RxNorm: 809912 1 Capsule(s) PO daily No Start Date 06/03/2011 Inactive Xanax 0.25 mg Tab RxNorm: 485797 1 Tablet(s) PO Q4-6H q 4-6 hrs prn No Start Date 04/06/2011 Inactive Synthroid 50 mcg Tab RxNorm: 808336 1 Tablet(s) PO daily No Start Date 07/14/2011 Inactive Pradaxa 150 mg capsule RxNorm: 2321796 1 Capsule(s) PO BID No Start Date 12/30/2011 Inactive metoprolol tartrate 25 mg tablet RxNorm: 799417 1 Tablet(s) PO TID No Start Date 12/08/2015 Inactive Singulair 5 mg Chewable Tab RxNorm: 955943 1 Tablet(s) PO every other day No Start Date 04/13/2013 Inactive Pepcid oral RxNorm: 4278 oral No Start Date 05/01/2018 Inactive Medication Administered Medication Codes Instructions Start Date Status Kenalog 40 mg/mL suspension for injection RxNorm: 4849325 Milliliter 05/09/2018 No longer Active ketorolac 60 mg/2 mL intramuscular solution RxNorm: 0920244 Milliliter 03/21/2018 No longer Active cyanocobalamin (vit B-12) 1,000 mcg/mL injection solution RxNorm: 390094 Milliliter 09/13/2015 No longer Active Kenalog 40 mg/mL suspension for injection RxNorm: 2232586 Milliliter 03/27/2015 No longer Active Kenalog 40 mg/mL suspension for injection RxNorm: 5829987 Milliliter 12/11/2014 No longer Active Kenalog 40 mg/mL suspension for injection RxNorm: 1959939 1Milliliter 04/14/2013 No longer Active Kenalog 40 mg/mL Susp for Injection RxNorm: 7555686 1Milliliter 04/11/2012 No longer Active Influenza Virus Vaccine 0.5 mL RxNorm: 11/11/2011 No longer Active Pneumovax 23 25 mcg/0.5 mL Injection RxNorm: 492588 Milliliter 11/11/2011 No longer Active Kenalog 40 mg/mL Susp for Injection RxNorm: 4481670 1Milliliter 08/11/2011 No longer Active Kenalog 40 mg/mL Susp for Injection RxNorm: 3948991 1Milliliter 06/15/2011 No longer Active Kenalog 40 mg/mL Susp for Injection RxNorm: 2390444 2Milliliter 11/20/2010 No longer Active Immunizations Vaccine [...] medications ICD-9: V58.69 04/12/2013 ESSENTIAL HYPERTENSION SNOMED: 36019976 ICD-9: 401.9 04/12/2013 ATRIAL FIBRILLATION ICD-9: 427.31 [...] Knee pain, acute ICD-9: 719.46 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 Encounter for general adult medical [...] Item Item Code Result Date Comp Metabolic Lky865 NA 139 mEq/L 04/26/2018 Comp Metabolic Iqb507 K 4.2 mEq/L 04/26/2018 Comp Metabolic Hvc999 CL 103 mEq/L 04/26/2018 Comp Metabolic Mov349 CO2 30.0 mEq/L 04/26/2018 Comp Metabolic Udm024 ANION GAP 10 04/26/2018 Comp Metabolic Dpz642 GLUCOSE 105 mg/dL 04/26/2018 Comp Metabolic Rpn148 Creat 1.0 mg/dL 04/26/2018 Comp Metabolic Mcg060 eGFR 62 ml/min/1.73m2 04/26/2018 Comp Metabolic Kzv591 BUN 13 mg/dL 04/26/2018 Comp Metabolic Rou523 B/C Ratio 13.7 Ratio 04/26/2018 Comp Metabolic Mhp126 CALCIUM 9.4 mg/dL 04/26/2018 Comp Metabolic Tda731 ALK PHOS 116 U/L 04/26/2018 Comp Metabolic Udw978 AST(SGOT) 13 U/L 04/26/2018 Comp Metabolic Tml500 ALT(SGPT) 12 U/L 04/26/2018 Comp Metabolic Rph007 BILI T 0.6 mg/dL 04/26/2018 Comp Metabolic Ixw874 ALBUMIN 3.8 g/dL 04/26/2018 Comp Metabolic Edh712 TPRO 6.4 g/dL 04/26/2018 Comp Metabolic Czk479 GLOB 2.6 g/dL 04/26/2018 Comp Metabolic Zqp184 A/G Ratio 1.4 Ratio 04/26/2018 Comp Metabolic Cnd460 Osmo 278 mOsmo 04/26/2018 Lipid Ord30 CHOL [...] 24.5 % 04/26/2018 Cbc With Differential Ord2 [place]% 6.7 % 04/26/2018 Cbc With Differential Ord2 [...] 2.47 K/ul 04/26/2018 Cbc With Differential Ord2 [place] ABS# 0.7 K/ul 04/26/2018 Cbc With Differential [...] Ord30 C/HDL 3.5 Ratio 03/15/2017 Comp Metabolic Kvb057 NA 140 mEq/L 03/15/2017 Comp Metabolic Axc889 K 3.6 mEq/L 03/15/2017 Comp Metabolic Qio059 CL 104 mEq/L 03/15/2017 Comp Metabolic Fkn192 CO2 27.0 mEq/L 03/15/2017 Comp Metabolic Esh944 ANION GAP 13 03/15/2017 Comp Metabolic Utp990 GLUCOSE 93 mg/dL 03/15/2017 Comp Metabolic Lsf671 Creat 0.9 mg/dL 03/15/2017 Comp Metabolic Cek995 eGFR 68 ml/min/1.73m2 03/15/2017 Comp Metabolic Pzg671 BUN 10 mg/dL 03/15/2017 Comp Metabolic Rxi512 B/C Ratio 11.4 Ratio 03/15/2017 Comp Metabolic Nxs419 CALCIUM 9.4 mg/dL 03/15/2017 Comp Metabolic Wso541 ALK PHOS 84 U/L 03/15/2017 Comp Metabolic Dfl485 AST(SGOT) 14 U/L 03/15/2017 Comp Metabolic Wjq547 ALT(SGPT) 15 U/L 03/15/2017 Comp Metabolic Blv495 BILI T 0.5 mg/dL 03/15/2017 Comp Metabolic Yut057 ALBUMIN 3.6 g/dL 03/15/2017 Comp Metabolic Nea214 TPRO 6.0 g/dL 03/15/2017 Comp Metabolic Ycy025 GLOB 2.4 g/dL 03/15/2017 Comp Metabolic Jqg428 A/G Ratio 1.5 Ratio 03/15/2017 Comp Metabolic Bot880 Osmo 278 mOsmo 03/15/2017 Magnesium Ord90 Mag [...] 30.4 pg 03/15/2017 Cbc With Differential Ord2 [place]% 6.7 % 03/15/2017 Cbc With Differential Ord2 [...] 2.24 K/ul 03/15/2017 Cbc With Differential Ord2 [place] ABS# 0.5 K/ul 03/15/2017 Cbc With Differential [...] Ord15 CALCIUM 9.4 mg/dL 01/15/2017 Comp Metabolic Gef787 NA 137 mEq/L 12/31/2016 Comp Metabolic Uhv304 K 3.2 mEq/L 12/31/2016 Comp Metabolic Poc674 CL 95 mEq/L 12/31/2016 Comp Metabolic Jbl580 CO2 30.0 mEq/L 12/31/2016 Comp Metabolic Lnn059 ANION GAP 15 12/31/2016 Comp Metabolic Ctx480 GLUCOSE 111 mg/dL 12/31/2016 Comp Metabolic Ymk535 Creat 1.3 mg/dL 12/31/2016 Comp Metabolic Rpr912 eGFR 45 ml/min/1.73m2 12/31/2016 Comp Metabolic Scv656 BUN 14 mg/dL 12/31/2016 Comp Metabolic Zur970 B/C Ratio 11.1 Ratio 12/31/2016 Comp Metabolic Qdy600 CALCIUM 10.0 mg/dL 12/31/2016 Comp Metabolic Oeb917 ALK PHOS 61 U/L 12/31/2016 Comp Metabolic Pra850 AST(SGOT) 14 U/L 12/31/2016 Comp Metabolic Var805 ALT(SGPT) 13 U/L 12/31/2016 Comp Metabolic Egq799 BILI T 0.9 mg/dL 12/31/2016 Comp Metabolic Say357 ALBUMIN 3.8 g/dL 12/31/2016 Comp Metabolic Pli139 TPRO 6.7 g/dL 12/31/2016 Comp Metabolic Mot436 GLOB 2.9 g/dL 12/31/2016 Comp Metabolic Rhc479 A/G Ratio 1.3 Ratio 12/31/2016 Comp Metabolic Yad529 Osmo 275 mOsmo 12/31/2016 Cbc With Differential [...] 30.3 pg 12/31/2016 Cbc With Differential Ord2 [place]% 11.2 % 12/31/2016 Cbc With Differential Ord2 [...] 1.89 K/ul 12/31/2016 Cbc With Differential Ord2 [place] ABS# 0.7 K/ul 12/31/2016 Cbc With Differential Ord2 Eos ABS# 0.1 K/ul 12/31/2016 Cbc With Differential Ord2 Baso ABS# 0.1 K/ul 12/31/2016 Urine Culture Ucult Complete >100,000 col/ml aerobic growth sent to ref lab 10/30/2016 Tsh Ord6 hTSH II 2.88 uIU/mL 09/15/2016 Comp Metabolic Bkn765 NA 139 mEq/L 09/15/2016 Comp Metabolic Ehp832 K 4.0 mEq/L 09/15/2016 Comp Metabolic Hbd065 CL 104 mEq/L 09/15/2016 Comp Metabolic Lks753 CO2 27.0 mEq/L 09/15/2016 Comp Metabolic Uli754 ANION GAP 12 09/15/2016 Comp Metabolic Wsq693 GLUCOSE 105 mg/dL 09/15/2016 Comp Metabolic Lyb204 Creat 0.9 mg/dL 09/15/2016 Comp Metabolic Vju391 eGFR 67 ml/min/1.73m2 09/15/2016 Comp Metabolic Bwg267 BUN 14 mg/dL 09/15/2016 Comp Metabolic Czr075 B/C Ratio 15.7 Ratio 09/15/2016 Comp Metabolic Pxl847 CALCIUM 9.0 mg/dL 09/15/2016 Comp Metabolic Msn599 ALK PHOS 85 U/L 09/15/2016 Comp Metabolic Inw467 AST(SGOT) 12 U/L 09/15/2016 Comp Metabolic Hfr824 ALT(SGPT) 11 U/L 09/15/2016 Comp Metabolic Ksc735 BILI T 0.5 mg/dL 09/15/2016 Comp Metabolic Vww175 ALBUMIN 3.4 g/dL 09/15/2016 Comp Metabolic Uyz359 TPRO 5.8 g/dL 09/15/2016 Comp Metabolic Nzb136 GLOB 2.4 g/dL 09/15/2016 Comp Metabolic Qwo373 A/G Ratio 1.4 Ratio 09/15/2016 Comp Metabolic Isz385 Osmo 278 mOsmo 09/15/2016 Vitamin D 25 Oh Voy6386 VITAMIN D, 25 HYDROXY 25.95 ng/mL Lipid [...] 9.2 mg/dL 01/13/2016 Vitamin D 25 Oh Xtq6652 VITAMIN D, 25 HYDROXY 38.03 ng/mL Comp Metabolic Mhn564 NA 139 mEq/L 11/28/2015 Comp Metabolic Mqr038 K 4.0 mEq/L 11/28/2015 Comp Metabolic Lwo708 CL 105 mEq/L 11/28/2015 Comp Metabolic Rcr270 CO2 25.0 mEq/L 11/28/2015 Comp Metabolic Kmy937 ANION GAP 13 11/28/2015 Comp Metabolic Eff407 GLUCOSE 100 mg/dL 11/28/2015 Comp Metabolic Dgw705 Creat 1.1 mg/dL 11/28/2015 Comp Metabolic Cch874 eGFR 55 ml/min/1.73m2 11/28/2015 Comp Metabolic Hrp131 BUN 13 mg/dL 11/28/2015 Comp Metabolic Ics625 B/C Ratio 12.3 Ratio 11/28/2015 Comp Metabolic Ips165 CALCIUM 9.2 mg/dL 11/28/2015 Comp Metabolic Xjt158 ALK PHOS 85 U/L 11/28/2015 Comp Metabolic Sqc752 AST(SGOT) 15 U/L 11/28/2015 Comp Metabolic Wqe398 ALT(SGPT) 15 U/L 11/28/2015 Comp Metabolic Eba561 BILI T 0.5 mg/dL 11/28/2015 Comp Metabolic Yam794 ALBUMIN 3.7 g/dL 11/28/2015 Comp Metabolic Scb507 TPRO 6.4 g/dL 11/28/2015 Comp Metabolic Pcg690 GLOB 2.7 g/dL 11/28/2015 Comp Metabolic Nmv371 A/G Ratio 1.4 Ratio 11/28/2015 Comp Metabolic Caw533 Osmo 278 mOsmo 11/28/2015 Tsh Ord6 hTSH II 1.98 uIU/mL 11/28/2015 Free T4 Isy911 FREE T4 1.04 ng/dL 11/28/2015 Cbc With [...] 30.9 pg 11/28/2015 Cbc With Differential Ord2 [place]% 6.7 % 11/28/2015 Cbc With Differential Ord2 [...] 2.19 K/ul 11/28/2015 Cbc With Differential Ord2 [place] ABS# 0.6 K/ul 11/28/2015 Cbc With Differential Ord2 Eos ABS# 0.1 K/ul 11/28/2015 Cbc With Differential Ord2 Baso ABS# 0.1 K/ul 11/28/2015 Comp Metabolic Jqo320 NA 135 mEq/L 10/15/2015 Comp Metabolic Jyc919 K 3.5 mEq/L 10/15/2015 Comp Metabolic Ddj901 CL 100 mEq/L 10/15/2015 Comp Metabolic Fhk193 CO2 29.0 mEq/L 10/15/2015 Comp Metabolic Xhz613 ANION GAP 10 10/15/2015 Comp Metabolic Tnl444 GLUCOSE 88 mg/dL 10/15/2015 Comp Metabolic Nrl609 Creat 0.9 mg/dL 10/15/2015 Comp Metabolic Kcm614 eGFR 67 ml/min/1.73m2 10/15/2015 Comp Metabolic Vcx046 BUN 16 mg/dL 10/15/2015 Comp Metabolic Ylb426 B/C Ratio 17.8 Ratio 10/15/2015 Comp Metabolic Gtz262 CALCIUM 9.4 mg/dL 10/15/2015 Comp Metabolic Ani147 ALK PHOS 96 U/L 10/15/2015 Comp Metabolic Guz714 AST(SGOT) 15 U/L 10/15/2015 Comp Metabolic Pnr675 ALT(SGPT) -125 U/L 10/15/2015 Comp Metabolic Ons041 BILI T 0.4 mg/dL 10/15/2015 Comp Metabolic Hyy552 ALBUMIN 4.2 g/dL 10/15/2015 Comp Metabolic Iwz549 TPRO 7.2 g/dL 10/15/2015 Comp Metabolic Qaw073 GLOB 3.1 g/dL 10/15/2015 Comp Metabolic Sxw220 A/G Ratio 1.4 Ratio 10/15/2015 Comp Metabolic Vzi774 Osmo 271 mOsmo 10/15/2015 Comp Metabolic Lrk793 NA 135 mEq/L 10/15/2015 Comp Metabolic Oun646 K 3.5 mEq/L 10/15/2015 Comp Metabolic Yft769 CL 100 mEq/L 10/15/2015 Comp Metabolic Xqg060 CO2 29.0 mEq/L 10/15/2015 Comp Metabolic Svl284 ANION GAP 10 10/15/2015 Comp Metabolic Vdq757 GLUCOSE 88 mg/dL 10/15/2015 Comp Metabolic Kzg114 Creat 0.9 mg/dL 10/15/2015 Comp Metabolic Cwp667 eGFR 67 ml/min/1.73m2 10/15/2015 Comp Metabolic Kqc032 BUN 16 mg/dL 10/15/2015 Comp Metabolic Eoz838 B/C Ratio 17.8 Ratio 10/15/2015 Comp Metabolic Tcj668 CALCIUM 9.4 mg/dL 10/15/2015 Comp Metabolic Rvx854 ALK PHOS 96 U/L 10/15/2015 Comp Metabolic Kyp487 AST(SGOT) 15 U/L 10/15/2015 Comp Metabolic Nkk029 ALT(SGPT) 14 U/L 10/15/2015 Comp Metabolic Cjm126 BILI T 0.4 mg/dL 10/15/2015 Comp Metabolic Ldg214 ALBUMIN 4.2 g/dL 10/15/2015 Comp Metabolic Uka438 TPRO 7.2 g/dL 10/15/2015 Comp Metabolic Wbq165 GLOB 3.1 g/dL 10/15/2015 Comp Metabolic Gsn076 A/G Ratio 1.4 Ratio 10/15/2015 Comp Metabolic Cac416 Osmo 271 mOsmo 10/15/2015 Magnesium Ord90 Mag 2.2 mg/dL 10/15/2015 Magnesium Ord90 Mag 1.9 mg/dL 09/05/2015 Comp Metabolic Oqd151 NA 138 mEq/L 09/05/2015 Comp Metabolic Rli157 K 3.7 mEq/L 09/05/2015 Comp Metabolic Ree080 CL 99 mEq/L 09/05/2015 Comp Metabolic Shx296 CO2 30.0 mEq/L 09/05/2015 Comp Metabolic Mxm663 ANION GAP 13 09/05/2015 Comp Metabolic Hxb900 GLUCOSE 97 mg/dL 09/05/2015 Comp Metabolic Ggp095 Creat 1.1 mg/dL 09/05/2015 Comp Metabolic Kxu680 eGFR 54 ml/min/1.73m2 09/05/2015 Comp Metabolic Pnw282 BUN 18 mg/dL 09/05/2015 Comp Metabolic Fgy601 B/C Ratio 16.7 Ratio 09/05/2015 Comp Metabolic Jix078 CALCIUM 9.6 mg/dL 09/05/2015 Comp Metabolic Qob491 ALK PHOS 96 U/L 09/05/2015 Comp Metabolic Pvi219 AST(SGOT) 15 U/L 09/05/2015 Comp Metabolic Vei831 ALT(SGPT) 14 U/L 09/05/2015 Comp Metabolic Rzg662 BILI T 0.5 mg/dL 09/05/2015 Comp Metabolic Pvl482 ALBUMIN 4.1 g/dL 09/05/2015 Comp Metabolic Dyn253 TPRO 7.0 g/dL 09/05/2015 Comp Metabolic Swy335 GLOB 3.0 g/dL 09/05/2015 Comp Metabolic Psr291 A/G Ratio 1.4 Ratio 09/05/2015 Comp Metabolic Ifp912 Osmo 277 mOsmo 09/05/2015 Vitamin D 25 Oh Klv4589 VITAMIN D, 25 HYDROXY 22.39 ng/mL Magnesium Ord90 Mag 2.0 mg/dL 06/11/2015 Tsh Ord6 hTSH II 3.52 uIU/mL 06/11/2015 Comp Metabolic Kcb715 NA 135 mEq/L 06/11/2015 Comp Metabolic Joe478 K 4.3 mEq/L 06/11/2015 Comp Metabolic Ahk509 CL 103 mEq/L 06/11/2015 Comp Metabolic Yed227 CO2 25.0 mEq/L 06/11/2015 Comp Metabolic Wph429 ANION GAP 11 06/11/2015 Comp Metabolic Apk805 GLUCOSE 75 mg/dL 06/11/2015 Comp Metabolic Icr742 Creat 0.9 mg/dL 06/11/2015 Comp Metabolic Llz613 eGFR 69 ml/min/1.73m2 06/11/2015 Comp Metabolic Vvp754 BUN 22 mg/dL 06/11/2015 Comp Metabolic Vqa985 B/C Ratio 25.3 Ratio 06/11/2015 Comp Metabolic Kjk626 CALCIUM 9.2 mg/dL 06/11/2015 Comp Metabolic Lil491 ALK PHOS 88 U/L 06/11/2015 Comp Metabolic Nku406 AST(SGOT) 13 U/L 06/11/2015 Comp Metabolic Zcs601 ALT(SGPT) 15 U/L 06/11/2015 Comp Metabolic Uim614 BILI T 0.4 mg/dL 06/11/2015 Comp Metabolic Wjr600 ALBUMIN 3.7 g/dL 06/11/2015 Comp Metabolic Qhy525 TPRO 6.6 g/dL 06/11/2015 Comp Metabolic Lsr530 GLOB 2.9 g/dL 06/11/2015 Comp Metabolic Yxu347 A/G Ratio 1.3 Ratio 06/11/2015 Comp Metabolic Teq213 Osmo 272 mOsmo 06/11/2015 Free T4 Dvp470 FREE T4 0.95 ng/dL 06/11/2015 Cbc With [...] 31.3 pg 06/11/2015 Cbc With Differential Ord2 [place]% 7.4 % 06/11/2015 Cbc With Differential Ord2 [...] 2.57 K/ul 06/11/2015 Cbc With Differential Ord2 [place] ABS# 0.9 K/ul 06/11/2015 Cbc With Differential [...] 13.8 % 11/16/2014 Vitamin D 25 Oh Zhi5136 VITAMIN D, 25 HYDROXY 22.85 ng/mL Lipid Ord30 CHOL 206 mg/dL 11/16/2014 Lipid Ord30 HDL 49.0 mg/dl 11/16/2014 Lipid Ord30 TRIG 104 mg/dL 11/16/2014 Lipid Ord30 LDL 136 mg/dL 11/16/2014 Lipid Ord30 C/HDL 4.2 Ratio 11/16/2014 Tsh Ord6 hTSH II 2.05 uIU/mL 11/16/2014 Comp Metabolic Pem324 NA 138 mEq/L 11/16/2014 Comp Metabolic Xsq707 K 4.0 mEq/L 11/16/2014 Comp Metabolic Xie503 CL 104 mEq/L 11/16/2014 Comp Metabolic Cdj902 CO2 27.0 mEq/L 11/16/2014 Comp Metabolic Ffb786 ANION GAP 11 11/16/2014 Comp Metabolic Ewz886 GLUCOSE 94 mg/dL 11/16/2014 Comp Metabolic Dkj093 Creat 0.9 mg/dL 11/16/2014 Comp Metabolic Kew580 eGFR 64 ml/min/1.73m2 11/16/2014 Comp Metabolic Qhb171 BUN 12 mg/dL 11/16/2014 Comp Metabolic Srr470 B/C Ratio 12.9 Ratio 11/16/2014 Comp Metabolic Rpr935 CALCIUM 9.4 mg/dL 11/16/2014 Comp Metabolic Uxm845 ALK PHOS 88 U/L 11/16/2014 Comp Metabolic Hdw650 AST(SGOT) 14 U/L 11/16/2014 Comp Metabolic Swt871 ALT(SGPT) 12 U/L 11/16/2014 Comp Metabolic Qfe896 BILI T 0.6 mg/dL 11/16/2014 Comp Metabolic Htd483 ALBUMIN 3.7 g/dL 11/16/2014 Comp Metabolic Azl762 TPRO 6.3 g/dL 11/16/2014 Comp Metabolic Byy972 GLOB 2.6 g/dL 11/16/2014 Comp Metabolic Ycm943 A/G Ratio 1.4 Ratio 11/16/2014 Comp Metabolic Ojc293 Osmo 275 mOsmo 11/16/2014 %Hba1C Yjg617 % HbA1c 26982-3 5.7 % 11/16/2014 %Hba1C Uvy737 Gluc Ave 117 mg/dL 11/16/2014 GFR CALC 0799671 GFR AA >60 ML/MIN 04/12/2013 GFR CALC 9780713 GFR NON-AA >60 ML/MIN 04/12/2013 TSH 4000445 TSH 2.194 uIU/ML 04/12/2013 VIT B 12 1402581 VIT B 12 415 PG/ML 04/12/2013 CBC 7031284 WBC 8.8 10e9/L 04/12/2013 CBC 8265601 RBC 4.59 10e12/L 04/12/2013 CBC 8000525 HGB 14.3 g/dL 04/12/2013 CBC 3150539 HCT DET 42.4 % 04/12/2013 CBC 5505914 MCV 92.4 fL 04/12/2013 CBC 6851190 MCH 31.2 pg 04/12/2013 CBC 6892279 MCHC 33.7 g/dL 04/12/2013 CBC 3747876 PLT 213 10e9/L 04/12/2013 CBC 4022129 MPV 12.8 fL 04/12/2013 CBC 9811700 LULU % 61.8 % 04/12/2013 CBC 6931615 LY % 29.2 % 04/12/2013 CBC 7059738 MON % 7.2 % 04/12/2013 CBC 1802812 EOS % 1.3 % 04/12/2013 CBC 7201743 BASO % 0.5 % 04/12/2013 CBC 6954395 RDW 12.6 % 04/12/2013 CBC 0824253 ABS LULU 5.44 10e9/L 04/12/2013 CBC 8254239 ABS LYMPH 2.57 10e9/L 04/12/2013 CBC 5535999 ABS MONO 0.63 10e9/L 04/12/2013 CBC 7658871 ABS EOS 0.11 10e9/L 04/12/2013 CBC 4658883 ABS BASO 0.04 10e9/L 04/12/2013 CBC 7230307 RDW-SD 41.3 fL 04/12/2013 FREE T4 7437199 FREE T4 1.09 NG/DL 04/12/2013 A1C HPLC 4301999 A1C HPLC 62386-1 5.4 % 04/12/2013 CHEM 14 5278582 AST 12 U/L 04/12/2013 CHEM 14 8011875 ALT 11 IU/L 04/12/2013 CHEM 14 5314951 BUN 14 MG/DL 04/12/2013 CHEM 14 8750137 ALBUMIN 4.1 GM/DL 04/12/2013 CHEM 14 6381512 CHLORIDE 105 MMOL/L 04/12/2013 CHEM 14 3479633 BILI TOT 0.6 MG/DL 04/12/2013 CHEM 14 4638290 ALK PHOS 81 U/L 04/12/2013 CHEM 14 8408802 SODIUM 138 MMOL/L 04/12/2013 CHEM 14 8680478 CREATININE 0.86 MG/DL 04/12/2013 CHEM 14 9244440 CALCIUM 9.8 MG/DL 04/12/2013 CHEM 14 8298770 POTASSIUM 4.1 MMOL/L 04/12/2013 CHEM 14 4959993 PROT TOT 6.6 GM/DL 04/12/2013 CHEM 14 6578757 GLUCOSE 112 MG/DL 04/12/2013 CHEM 14 0147177 BICARB 27 MMOL/L 04/12/2013 CHEM 14 5841884 ANION GAP 6 MEQ/L 04/12/2013 LIPID GRP HDL TEST 55 MG/DL 04/12/2013 LIPID GRP 0796088 TRIG 107 MG/DL 04/12/2013 LIPID GRP TEST LDL 193 MG/DL 04/12/2013 LIPID GRP CHOL 269 MG/DL 04/12/2013 LIPID GRP RCHOL/HDL 4.89 RATIO 04/12/2013 NICOT QN S 4195206 NICOTIN S < 2.0 NG/ML 03/07/2012 NICOT QN S 3829874 XCOTININ S < 2.0 NG/ML 03/07/2012 CBC 6399118 WBC 8.1 10e9/L 03/02/2012 CBC 9803431 RBC 4.44 10e12/L 03/02/2012 CBC 6804444 HGB 13.8 g/dL 03/02/2012 CBC 3715170 HCT DET 41.3 % 03/02/2012 CBC 8008508 MCV 93.0 fL 03/02/2012 CBC 4127625 MCH 31.1 pg 03/02/2012 CBC 8403923 MCHC 33.4 g/dL 03/02/2012 CBC 2684612 PLT 188 10e9/L 03/02/2012 CBC 4318865 MPV 14.3 fL 03/02/2012 CBC 9676475 LULU % 61.5 % 03/02/2012 CBC 7402525 LY % 28.8 % 03/02/2012 CBC 7649664 MON % 8.0 % 03/02/2012 CBC 8962888 EOS % 1.1 % 03/02/2012 CBC 3197117 BASO % 0.6 % 03/02/2012 CBC 2866265 RDW 14.0 % 03/02/2012 CBC 4894421 ABS LULU 4.98 10e9/L 03/02/2012 CBC 8291619 ABS LYMPH 2.33 10e9/L 03/02/2012 CBC 0766199 ABS MONO 0.65 10e9/L 03/02/2012 CBC 0043865 ABS EOS 0.09 10e9/L 03/02/2012 CBC 9196635 ABS BASO 0.05 10e9/L 03/02/2012 CBC 7846911 RDW-SD 46.3 fL 03/02/2012 LIPID GRP HDL TEST 37 MG/DL 03/02/2012 LIPID GRP TRIG 136 MG/DL 03/02/2012 LIPID GRP TEST LDL 106 MG/DL 03/02/2012 LIPID GRP CHOL 170 MG/DL 03/02/2012 LIPID GRP 0820568 RCHOL/HDL 4.59 RATIO 03/02/2012 GFR CALC 0600725 GFR AA >60 ML/MIN 03/02/2012 GFR CALC 1575104 GFR NON-AA >60 ML/MIN 03/02/2012 FREE T4 6056086 FREE T4 1.09 NG/DL 03/02/2012 A1C HPLC 4181883 A1C HPLC 38746-7 5.4 % 03/02/2012 CHEM 14 3671084 AST 17 U/L 03/02/2012 CHEM 14 9477995 ALT 22 IU/L 03/02/2012 CHEM 14 7238843 BUN 15 MG/DL 03/02/2012 CHEM 14 1993573 ALBUMIN 4.0 GM/DL 03/02/2012 CHEM 14 0669055 CHLORIDE 107 MMOL/L 03/02/2012 CHEM 14 1362635 BILI TOT 0.4 MG/DL 03/02/2012 CHEM 14 6902636 ALK PHOS 83 U/L 03/02/2012 CHEM 14 9759550 SODIUM 141 MMOL/L 03/02/2012 CHEM 14 6158078 CREATININE 0.86 MG/DL 03/02/2012 CHEM 14 2597142 CALCIUM 9.5 MG/DL 03/02/2012 CHEM 14 2074252 POTASSIUM 4.0 MMOL/L 03/02/2012 CHEM 14 1665082 PROT TOT 6.6 GM/DL 03/02/2012 CHEM 14 9820590 GLUCOSE 102 MG/DL 03/02/2012 CHEM 14 5157299 BICARB 28 MMOL/L 03/02/2012 CHEM 14 2553036 ANION GAP 6 MEQ/L 03/02/2012 TSH 0998846 TSH 2.320 uIU/ML 03/02/2012 GFR CALC 6729056 GFR AA >60 ML/MIN 07/03/2011 GFR CALC 9433597 GFR NON-AA 54.0L ML/MIN 07/03/2011 CHEM 14 4475266 AST 15 U/L 07/03/2011 CHEM 14 5600698 ALT 30 IU/L 07/03/2011 CHEM 14 1380514 BUN 19 MG/DL 07/03/2011 CHEM 14 5009400 ALBUMIN 4.2 GM/DL 07/03/2011 CHEM 14 7582154 CHLORIDE 100 MMOL/L 07/03/2011 CHEM 14 4566537 BILI TOT 0.8 MG/DL 07/03/2011 CHEM 14 7296439 ALK PHOS 74 U/L 07/03/2011 CHEM 14 20270820 SODIUM 137 MMOL/L 07/03/2011 CHEM 14 6321909 CREATININE 1.03 MG/DL 07/03/2011 CHEM 14 9388633 CALCIUM 9.6 MG/DL 07/03/2011 CHEM 14 3802045 POTASSIUM 4.4 MMOL/L 07/03/2011 CHEM 14 20270820 PROT TOT 6.7 GM/DL 07/03/2011 CHEM 14 20270820 GLUCOSE 106 MG/DL 07/03/2011 CHEM 14 5649896 BICARB 28 MMOL/L 07/03/2011 CHEM 14 9350883 ANION GAP 9 MEQ/L 07/03/2011 URINALYSIS NONAUTO W/O SCOPE [address] [address] [place] 1.010 DateTime(Free Text in Aprima) URINALYSIS NONAUTO W/O SCOPE 09129 PH 5 DateTime(Free Text in Apr[employer]) URINALYSIS NONAUTO W/O SCOPE 29733 GLUCOSE neg DateTime( Free Text in [employer]) URINALYSIS NONAUTO W/O SCOPE 90670 Protein neg DateTime( Free Text in [employer]) URINALYSIS NONAUTO W/O SCOPE 96286 Blood 1+ DateTime(Free Text in [employer]) URINALYSIS NONAUTO W/O SCOPE 33298 Bilirubin neg DateTime(Free Text in Aprima) URINALYSIS NONAUTO W/O SCOPE 21465 Ketones neg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 Patient Medication Summary Completed 06/04/2011 Visit Plan: 1800 CALORIE RESTRICTION EXERCISE BAND - use for 10 min on upper body and 5 min on lower body. Bring in the diet log from this past. month Continue with ibuprofen for the knee pain. HTN - controlled - no change in medications. 05/05/2011 Appointment: Lacy Do WPtel: [phone] [facility] Other 05/05/2011 Patient Education: Patient Medication [...] initiall instructed. 04/07/2011 Appointment: Lacy Do WPtel: [facility] [place] Other 04/07/2011 Patient Education: Patient Medication Summary [...] by Dr. Cueto. Also patient to have rate quoting operator and psych consults in the next couple of months as well. Sinusitis - Pt has acute infection - pain in face, maxillary region, Pt informed to use decongestant, RX given to patient, sinus rinses also recommended. Call if symptoms do not show improvement. Kenalog injection today in the office. 03/17/2011 Appointment: [facility] [phone] [phone] [place] Other 03/17/2011 Patient Education: Patient Medication Summary Completed 03/17/2011 Patient Education: .Gaylaing sanya Diet - Diabetic Completed 03/17/2011 Patient Education: .Gaylaing sanya Diabetic meal planning guide Completed 03/17 Visit [...] other concerns. 01/21/2011 Appointment: Roberta Isaacs WPtel: [address] [place], [place] [id number] [place] [address] Other 01/21/2011 Patient Education: Patient Medication Summary [...] tab daily. 11/24/2010 Appointment: Roberta Isaacs WPtel: [facility]5 [phone] [place] Other 11/24/2010 Patient Education: Patient Medication [...] understanding. 11/20/2010 Appointment: Roberta Isaacs WPtel: [address] [place], [place] [phone] [place] [address] Other 11/20/2010 Patient Education: Patient Medication Summary Completed 11/20/2010 Visit Plan: Sinusitis - Pt has acute infection - pain in face, maxillary region, Pt informed to use decongestant, RX given to patient, sinus rinses also recommended. Call if symptoms do not show improvement. Samples of nasonex and jamie provided as well. 11/06/2010 Appointment: Roberta Isaacs WPtel: [facility]5 [phone] [place] Other 11/06/2010 Patient Education: Patient Medication [...] office or get her labs done at [facility] this week. She reports that her [...] as had been initiall instructed. . Abdominal [id number] recent CT chest showed partially calcified aneurysm [...] re-exposed to the environment of the alf. SCHEDULE MAMMOGRAM (NOT THIS WEDNESDAY, NEXT WEDNESDAY [...] for fasting labs. Biaxin prescription sent to [facility]-it is twice daily x 10 days. [...] by Dr. Cueto. Also patient to have rate quoting operator and psych consults in the next couple of months as well. Sinusitis - Pt has acute infection - pain in face, maxillary region, Pt informed to use decongestant, RX given to patient, sinus rinses also recommended. Call if symptoms do not show improvement. Kenalog injection today in the office. . Qqtdu-abztrip-dnrl lasix 40mg daily x 3 days with potassium 20mEq BID x 3 days, then resume daily PRN schedule. If symptoms do not improve, we will obtain a chest xray. Recommend screening mammogram . PT GIVEN ROUTINE ALLERGY SHOTS FOR DESENSITIZATION . Kenalog injection
--- OUTSIDE RECORDS SUMMARY | 2018-06-03 07:15 | XMS REPORT | CCD ---
Author Author [facility] Address [address] [place] [address] Phone Care Team Providers Care Embroidery Supervisor Name Role Phone PP Unavailable CCM Unavailable Summary Purpose Interface Exchange Insurance Providers Payer name Policy type / Coverage type Covered democrat ID Effective Begin Date Effective End Date WPS Medicare Part B Medicare Part B [id number] 2017 Unknown [employer] Medicare Part B [id number] Unknown Family history Father Diagnosis Age At Onset No Family Disease Entered N/A Runs in the family Diagnosis Age At Onset Diabetes Unknown Mother Diagnosis Age At Onset No Family Disease Entered N/A Social History Social History Element Codes Description Effective Dates Employment Unknown 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 Active 03/17/2011 Unknown Obesity ICD-9: [...] unspecified ICD-9: 466.0 ICD-10: J20.9 05/09/2018 Active Cough ICD-9: 786.2 ICD-10: R05 [...] SINUSITIS ICD-9 : 461.9 03/17/2011 Active 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 03/17/2011 Active Obesity ICD-9: 278.00 [...] Fill Instructions Tamiflu 75 mg capsule RxNorm: 806443 1 Capsule(s) PO BID 201805/14/2018 Active Tamiflu 75 mg capsule RxNorm: 879012 1 Capsule(s) PO BID 201805/09/2018 Inactive Kenalog 40 mg/mL suspension for injection RxNorm: 3725147 Milliliter(s) Inj 05/09/2018 05/09/2018 Inactive potassium chloride ER 10 mEq tablet,extended release RxNorm: 036715 1 Tablet(s) TAKE 1 CAPSULES BY MOUTH TWICE DAILY 05/02/2018 No Stop Date Active doxycycline hyclate 100 mg tablet RxNorm: 2215339 1 Tablet(s) PO BID 04/01/2018 03/31/2018 Inactive doxycycline hyclate 100 mg tablet RxNorm: 2386831 1 Tablet(s) PO BID 04/01/2018 04/10/2018 Inactive ketorolac 60 mg/2 mL intramuscular solution RxNorm: 7703447 Milliliter(s) IM 03/21/2018 03/21/2018 Inactive Voltaren 1 % topical gel RxNorm: 434422 4 Gram(s) TOP QID 03/1103/10/2018 Inactive Voltaren 1 % topical gel RxNorm: 741509 4 Gram(s) TOP QID 03/1104/09/2018 Inactive Xanax 0.25 mg tablet RxNorm: 971418 Tablet(s) PO TAKE ONE TABLET BY MOUTH EVERY 4 TO 6 HOURS NEEDED 03/09/20182018 Active potassium chloride ER 10 mEq tablet,extended release RxNorm: 223037 TAKE 2 CAPSULES BY MOUTH TWICE DAILY 02/28/2018 05/01/2018 Inactive Levaquin 500 mg tablet RxNorm: 558084 1 Tablet(s) PO daily 12/201701/31/2018 Inactive Macrobid 100 mg capsule RxNorm: 080014 1 Capsule(s) PO BID 01/06/2018 Inactive Macrobid 100 mg capsule RxNorm: 496619 1 Capsule(s) PO BID 12/30/2017 Inactive ondansetron 4 mg disintegrating tablet RxNorm: 186487 1 Tablet(s) PO Q4 PRN 10/22/2017 No Stop Date Active Xanax 0.25 mg tablet RxNorm: 453323 Tablet(s) PO TAKE ONE TABLET BY MOUTH EVERY 4 TO 6 HOURS NEEDED 07/29/20172017 Inactive Levaquin 500 mg tablet RxNorm: 957106 1 Tablet(s) PO daily 07/14/2017 Inactive Levaquin 500 mg tablet RxNorm: 591018 1 Tablet(s) PO daily 07/21/2017 Inactive Xarelto 20 mg tablet RxNorm: 1533357 1 Tablet(s) PO daily 06/2812/24/2017 Inactive Xarelto 20 mg tablet RxNorm: 4393186 1 Tablet(s) PO daily 06/2806/27/2017 Inactive potassium chloride ER 10 mEq tablet,extended release RxNorm: 943209 2 Capsule(s) PO BID 06/28/2017 12/24/2017 Inactive potassium chloride ER 10 mEq tablet,extended release RxNorm: 072646 2 Capsule(s) PO BID 06/28/2017 06/27/2017 Inactive prednisone 10 mg tablet RxNorm: 220418 Tablet(s) PO UD 201703/20/2018 Inactive 6,5,4,3,2,1 Vitamin D2 50,000 unit capsule RxNorm: 610993 1 Capsule(s) PO QW 04/26/2017 07/24/2017 Inactive Lexapro 10 mg tablet RxNorm: 971453 1 Tablet(s) PO QHS 201601/11/2017 Inactive Lexapro 10 mg tablet RxNorm: 231194 1 Tablet(s) PO QHS 201604/25/2017 Inactive famotidine 20 mg tablet RxNorm: 266355 1 Tablet(s) PO BID 01/0601/05/2017 Inactive famotidine 20 mg tablet RxNorm: 413642 1 Tablet(s) PO BID 01/0604/25/2017 Inactive doxazosin 2 mg tablet RxNorm: 170252 TAKE ONE-HALF TABLET BY MOUTH TWICE DAILY 12/17/2016 04/25/2017 Inactive Xanax 0.25 mg tablet RxNorm: 053775 Tablet(s) PO TAKE ONE TABLET BY MOUTH EVERY 4 TO 6 HOURS NEEDED 11/12/20162016 Inactive Xanax 0.25 mg tablet RxNorm: 242066 Tablet(s) PO TAKE ONE TABLET BY MOUTH EVERY 4 TO 6 HOURS NEEDED 11/12/20162016 Inactive Levaquin 500 mg tablet RxNorm: 937240 1 Tablet(s) PO daily 10/28/2016 Inactive Levaquin 500 mg tablet RxNorm: 427616 1 Tablet(s) PO daily 11/04/2016 Inactive Pyridium 200 mg tablet RxNorm: 5002580 1 Tablet(s) PO TID PRN 10/29/2016 04/25/2017 Inactive potassium chloride ER 10 mEq tablet,extended release RxNorm: 776192 2 Capsule(s) PO BID 10/20/2016 02/16/2017 Inactive potassium chloride ER 10 mEq tablet,extended release RxNorm: 276686 2 Capsule(s) PO BID 10/16/2016 10/19/2016 Inactive potassium chloride ER 10 mEq tablet,extended release RxNorm: 315647 1 Capsule(s) PO daily 10/15/2016 10/15/2016 Inactive potassium chloride 40 mEq/15 mL oral liquid RxNorm: 934834 7.5 Milliliter(s) PO BID 10/05/2016 10/11/2016 Inactive potassium chloride 40 mEq/15 mL oral liquid RxNorm: 651122 7.5 Milliliter(s) PO BID 10/05/2016 10/04/2016 Inactive potassium chloride 40 mEq/15 mL oral liquid RxNorm: 131890 7.5 Milliliter(s) PO BID 10/05/2016 10/04/2016 Inactive doxycycline hyclate 100 mg tablet RxNorm: 895401 1 Tablet(s) PO BID 09/30/2016 10/09/2016 Inactive Vitamin D2 50,000 unit capsule RxNorm: 146563 1 Capsule(s) PO QW 09/15/2016 09/14/2016 Inactive Vitamin D2 50,000 unit capsule RxNorm: 782867 1 Capsule(s) PO QW 09/15/2016 12/13/2016 Inactive doxycycline hyclate 100 mg tablet RxNorm: 612852 1 Tablet(s) PO BID 08/11/2016 08/24/2016 Inactive doxycycline hyclate 100 mg tablet RxNorm: 555948 1 Tablet(s) PO BID 07/24/2016 07/28/2016 Inactive mupirocin 2 % topical ointment RxNorm: 104930 1 Application TOP BID 07/24/2016 07/23/2016 Inactive mupirocin 2 % topical ointment RxNorm: 168268 1 Application TOP BID 07/24/2016 07/30/2016 Inactive doxycycline hyclate 100 mg tablet RxNorm: 226218 1 Tablet(s) PO BID 07/24/2016 07/23/2016 Inactive potassium chloride ER 10 mEq tablet,extended release RxNorm: 767468 2 Tablet(s) PO BID 07/20/2016 10/04/2016 Inactive Lasix 20 mg tablet RxNorm: 967629 1 Tablet(s) PO PRN 2016 No Stop Date Active PRN for swelling Xanax 0.25 mg tablet RxNorm: 653318 Tablet(s) PO TAKE ONE TABLET BY MOUTH EVERY 4 TO 6 HOURS NEEDED 06/19/20162016 Inactive prednisone 20 mg tablet RxNorm: 063743 1 Tablet(s) PO BID 06/0306/07/2016 Inactive potassium chloride ER 10 mEq tablet,extended release RxNorm: 485280 2 Tablet(s) PO BID 05/06/2016 05/05/2016 Inactive potassium chloride ER 10 mEq tablet,extended release RxNorm: 893521 2 Tablet(s) PO BID 05/06/2016 06/04/2016 Inactive Levaquin 500 mg tablet RxNorm: 832820 1 Tablet(s) PO daily 03/30/2016 Inactive Levaquin 500 mg tablet RxNorm: 243801 1 Tablet(s) PO daily 04/06/2016 Inactive prednisone 20 mg tablet RxNorm: 046306 1 Tablet(s) PO BID 02/2402/29/2016 Inactive prednisone 20 mg tablet RxNorm: 025633 1 Tablet(s) PO BID 02/2402/24/2016 Inactive Flonase 50 mcg/actuation nasal spray,suspension RxNorm: 7623193 2 [place] NASAL daily 02/18/2016 02/27/2016 Inactive doxycycline hyclate 100 mg tablet RxNorm: 550797 1 Tablet(s) PO BID 02/18/2016 02/27/2016 Inactive doxycycline hyclate 100 mg tablet RxNorm: 619203 1 Tablet(s) PO BID 02/18/2016 02/17/2016 Inactive cyclobenzaprine 5 mg tablet RxNorm: 130795 1-2 Tablet(s) PO TID as needed 02/12/2016 02/21/2016 Inactive cyclobenzaprine 5 mg tablet RxNorm: 238160 1-2 Tablet(s) PO TID as needed 02/12/2016 02/11/2016 Inactive Xanax 0.25 mg tablet RxNorm: 257807 Tablet(s) PO TAKE ONE TABLET BY MOUTH EVERY 4 TO 6 HOURS NEEDED 01/20/20162016 Inactive (Appended: Controlled substance eRx refill - RxReferenceNumber: [id number]) metoprolol tartrate 25 mg tablet RxNorm: 183079 1/2 Tablet(s) PO BID 12/13/2015 04/10/2016 Inactive doxazosin 2 mg tablet RxNorm: 985617 1 Tablet(s) PO QHS 201512/16/2016 Inactive metoprolol tartrate 25 mg tablet RxNorm: 508331 1/2 Tablet(s) PO BID 12/09/2015 12/12/2015 Inactive Vitamin D2 50,000 unit capsule RxNorm: 488098 1 Capsule(s) PO QW 12/09/2015 02/06/2016 Inactive Lasix 20 mg tablet RxNorm: 066374 1 Tablet(s) PO PRN 201507/05/2016 Inactive PRN for swelling potassium chloride ER 20 mEq tablet,extended release RxNorm: 630723 1 Tablet(s) PO daily as needed When taking lasix 10/03/2015 04/26/2016 Inactive cyanocobalamin (vit B-12) 1,000 mcg/mL injection solution RxNorm: 865071 Milliliter(s) Inj 09/13/2015 09/13/2015 Inactive doxycycline hyclate 100 mg tablet RxNorm: 406988 1 Tablet(s) PO BID 09/12/2015 09/18/2015 Inactive potassium chloride ER 10 mEq tablet,extended release RxNorm: 255383 1 Tablet(s) PO daily as needed When taking lasix 09/04/2015 10/02/2015 Inactive Lasix 20 mg tablet RxNorm: 983323 1 Tablet(s) PO PRN 201510/02/2015 Inactive PRN for swelling doxycycline hyclate 100 mg tablet RxNorm: 361067 1 Tablet(s) PO BID 08/26/2015 08/25/2015 Inactive doxycycline hyclate 100 mg tablet RxNorm: 069776 1 Tablet(s) PO BID 08/26/2015 09/01/2015 Inactive mupirocin 2 % topical ointment RxNorm: 177281 1 Application TOP BID 08/02/2015 08/01/2015 Inactive mupirocin 2 % topical ointment RxNorm: 459719 1 Application TOP BID 08/02/2015 08/08/2015 Inactive metoprolol tartrate 50 mg tablet RxNorm: 626567 2 tabs in morning and 1 tablet at night dose PO as directed 06/13/201510/23 Inactive 2 tabs in the morning, and 1 in the evening Benicar 40 mg tablet RxNorm: 862838 1 Tablet(s) PO daily 201510/21/2015 Inactive Benicar 40 mg tablet RxNorm: 153460 1 Tablet(s) PO daily 201506/12/2015 Inactive Vitamin D2 50,000 unit capsule RxNorm: 777372 1 Capsule(s) PO QW 06/11/2015 12/07/2015 Inactive Xanax 0.25 mg tablet RxNorm: 518232 Tablet(s) PO TAKE ONE TABLET BY MOUTH EVERY 4 TO 6 HOURS NEEDED 06/06/20152015 Inactive (Appended: Controlled substance eRx refill - RxReferenceNumber: [id number]) Levaquin 500 mg tablet RxNorm: 125761 1 Tablet(s) PO daily 11/201510/28/2015 Inactive Kenalog 40 mg/mL suspension for injection RxNorm: 9070171 Milliliter(s) Inj 03/27/2015 03/27/2015 Inactive Kenalog 40 mg/mL suspension for injection RxNorm: 9264507 Milliliter(s) Inj 12/11/2014 12/11/2014 Inactive Vitamin D2 50,000 unit capsule RxNorm: 130254 1 Capsule(s) PO QW 12/05/2014 06/02/2015 Inactive [SAVINGS FOR NON-COVERED DRUGS -- BIN:[id number], PCN: ASPROD1, Group: XXXXX, ID# [id number], Questions: . THIS IS NOT INSURANCE.] Pradaxa 150 mg capsule RxNorm: 0952478 Capsule(s) PO BID 201409/08/2015 Inactive TAKE 1 CAPSULE BY MOUTH TWICE DAILY Vitamin D2 50,000 unit capsule RxNorm: 561030 1 Capsule(s) PO QW 12/04/2014 12/04/2014 Inactive [SAVINGS FOR NON-COVERED DRUGS -- BIN:734046, PCN: ASPROD1, Group: XXXXX, ID# [id number], Questions: . THIS IS NOT INSURANCE.] Lasix 20 mg tablet RxNorm: 963839 1 Tablet(s) PO PRN 201411/25/2014 Inactive PRN for swelling Levaquin 500 mg tablet RxNorm: 544214 1 Tablet(s) PO daily 01/201511/25/2014 Inactive Levaquin 500 mg tablet RxNorm: 907598 1 Tablet(s) PO daily 01/201512/02/2014 Inactive Lasix 20 mg tablet RxNorm: 417192 1 Tablet(s) PO PRN 201409/03/2015 Inactive PRN for swelling nitrofurantoin 100 mg capsule RxNorm: 784278 1 Capsule(s) PO BID 11/12/2014 11/17/2014 Inactive Macrobid 100 mg capsule RxNorm: 075593 1 Capsule(s) PO BID 11/18/2014 Inactive Macrobid 100 mg capsule RxNorm: 749743 1 Capsule(s) PO BID 11/11/2014 Inactive Levaquin 500 mg tablet RxNorm: 645621 1 Tablet(s) PO daily 11/11/2014 Inactive metoprolol tartrate 50 mg tablet RxNorm: 891702 2 tabs in morning and 1 tablet at night dose PO as directed 10/25/201405/21 Inactive 2 tabs in the morning, and 1 in the evening Xanax 0.25 mg tablet RxNorm: 774397 Tablet(s) PO TAKE ONE TABLET BY MOUTH EVERY 4 TO 6 HOURS NEEDED 08/30/20142014 Inactive (Appended: Controlled substance eRx refill - RxReferenceNumber: [id number]) Levaquin 500 mg tablet RxNorm: 850641 1 Tablet(s) PO daily 07/31/2014 Inactive Levaquin 500 mg tablet RxNorm: 716777 1 Tablet(s) PO daily 08/07/2014 Inactive Vitamin D2 50,000 unit capsule RxNorm: 606818 1 Capsule(s) PO QW 05/16/2014 2014 Inactive [SAVINGS FOR NON-COVERED DRUGS -- BIN:129112, PCN: ASPROD1, Group: XXXXX, ID# [id number], Questions: . THIS IS NOT INSURANCE.] Zithromax 500 mg tablet RxNorm: 091675 1 Tablet(s) PO daily 05/10/2014 Inactive Zithromax 500 mg tablet RxNorm: 554577 1 Tablet(s) PO daily 05/15/2014 Inactive [SAVINGS FOR NON-COVERED DRUGS -- BIN:639984, PCN: ASPROD1, Group: XXXXX, ID# [id number], Questions: . THIS IS NOT INSURANCE.] prednisone 20 mg tablet RxNorm: 906183 Tablet(s) PO 3daily x 2days, then 2daily x2days, then 1daily x2days, then 1/2 daily x 2days then stop 03/13/2014 2014 Inactive [SAVINGS FOR UNINSURED PATIENTS -- BIN:649068, PCN: ASPROD1, Group: [id number], ID# [id number], Process claim through [employer], for questions: [phone]. THIS IS NOT INSURANCE.] Levaquin 500 mg tablet RxNorm: 706608 1 Tablet(s) PO daily TAKE ONE TABLET BY MOUTH ONCE DAILY take with benadryl 03/13/2014 03/22/2014 Inactive [SAVINGS FOR UNINSURED PATIENTS -- BIN:065595, PCN: ASPROD1, Group: [id number], ID# [id number], Process claim through [employer], for questions: . THIS IS NOT INSURANCE.] Levaquin 500 mg tablet RxNorm: 742725 1 Tablet(s) PO daily TAKE ONE TABLET BY MOUTH ONCE DAILY take with benadryl 02/26/2014 03/07/2014 Inactive pt to pick up man today 01/06/14 [SAVINGS FOR UNINSURED PATIENTS -- BIN:688129, PCN: ASPROD1, Group: LIU, ID# [id number], Process claim through [employer], for questions: [phone]. THIS IS NOT INSURANCE.] Xanax 0.25 mg tablet RxNorm: 654479 Tablet(s) PO TAKE ONE TABLET BY MOUTH EVERY 4 TO 6 HOURS NEEDED 02/05/20142013 Inactive (Appended: Controlled substance eRx refill - RxReferenceNumber: [id number]) prednisone 20 mg tablet RxNorm: 885089 2 Tablet(s) PO QAM 01/0601/10/2014 Inactive call pt when ready for pick up man today 01/06/14 Levaquin 500 mg tablet RxNorm: 299190 1 Tablet(s) PO daily TAKE ONE TABLET BY MOUTH ONCE DAILY take with benadryl 01/06/2014 01/12/2014 Inactive pt to pick up man today 01/06/14 prednisone 20 mg tablet RxNorm: 997300 Tablet(s) PO 3daily x 2days, then 2daily x2days, then 1daily x2days, then 1/2 daily x 2days then stop 12/13/2013 03/12/2014 Inactive Levaquin 500 mg tablet RxNorm: 801247 1 Tablet(s) PO daily TAKE ONE TABLET BY MOUTH ONCE DAILY take with benadryl 12/13/2013 12/19/2013 Inactive Vitamin D2 50,000 unit capsule RxNorm: 353035 1 Capsule(s) PO QW 12/12/2013 03/11/2014 Inactive weekly x 12 weeks Vitamin D2 50,000 unit capsule RxNorm: 049710 1 Capsule(s) PO QW 12/12/2013 12/11/2013 Inactive metoprolol tartrate 50 mg tablet RxNorm: 574042 2 tabs in morning and 1 tablet at night dose PO as directed 11/03/201305/31 Inactive 2 tabs in the morning, and 1 in the evening Bactroban 2 % topical ointment RxNorm: 443010 1 Application TOP BID 10/30/2013 11/08/2013 Inactive Bactroban 2 % topical ointment RxNorm: 520485 1 Application TOP BID 10/30/2013 10/29/2013 Inactive Lasix 40 mg tablet RxNorm: 872750 1 Tablet(s) PO daily as needed 10/23/2013 2014 Inactive metoprolol tartrate 50 mg tablet RxNorm: 551033 1 Tablet(s) PO BID 08/28/2013 09/26/2013 Inactive 2 tabs in the morning, and 1 in the evening metoprolol tartrate 50 mg tablet RxNorm: 673895 1 Tablet(s) PO BID 08/28/2013 08/27/2013 Inactive 2 tabs in the morning, and 1 in the evening Lasix 40 mg tablet RxNorm: 1 Tablet(s) PO daily 201310/22/2013 Inactive Lasix 40 mg tablet RxNorm: 199786 1 Tablet(s) PO daily 201308/07/2013 Inactive potassium chloride ER 10 mEq tablet,extended release RxNorm: 054539 1 Tablet(s) PO BID 07/14/2013 2014 Inactive Lipitor 20 mg tablet RxNorm: 707716 1 Tablet(s) PO daily 201307/08/2014 Inactive generic ok Xanax 0.25 mg tablet RxNorm: 859537 Tablet(s) PO TAKE 1 TABLET BY MOUTH EVERY 4 TO 6 HOURS NEEDED 07/14/20132013 Inactive (Appended: Controlled substance eRx refill - RxReferenceNumber: [id number]|1|0|1) Xanax 0.25 mg tablet RxNorm: 803074 Tablet(s) PO TAKE ONE TABLET BY MOUTH EVERY 4 TO 6 HOURS NEEDED 07/14/20132013 Inactive (Appended: Controlled substance eRx refill - RxReferenceNumber: [id number]) metoprolol succinate ER 50 mg tablet,extended release 24 hr RxNorm: 942816 100mg q am 50 in even Tablet(s) PO 07/14/2013 Inactive Levaquin 500 mg tablet RxNorm: 462003 Tablet(s) PO TAKE ONE TABLET BY MOUTH ONCE DAILY 07/13/2013 12/12/2013 Inactive Levaquin 500 mg tablet RxNorm: 913960 Tablet(s) PO TAKE ONE TABLET BY MOUTH ONCE DAILY 07/13/2013 10/22/2013 Inactive Levaquin 500 mg tablet RxNorm: 845686 1 Tablet(s) PO daily 02/201305/22/2013 Inactive Levaquin 500 mg tablet RxNorm: 655025 1 Tablet(s) PO daily 05/15/2013 Inactive Lipitor 20 mg tablet RxNorm: 670588 1 Tablet(s) PO daily 201307/13/2013 Inactive generic ok Kenalog 40 mg/mL suspension for injection RxNorm: 6595963 1 Milliliter(s) Inj 04/14/2013 04/14/2013 Inactive Lipitor 20 mg tablet RxNorm: 644495 1 Tablet(s) PO daily 201304/16/2013 Inactive Lipitor 20 mg tablet RxNorm: 440759 1 Tablet(s) PO daily 201304/13/2013 Inactive metoprolol succinate ER 50 mg tablet,extended release 24 hr RxNorm: 751878 100mg q am 50 in even Tablet(s) PO 04/14/2013 Inactive Levaquin 500 mg tablet RxNorm: 503981 1 Tablet(s) PO daily 04/20/2013 Inactive Carafate 1 gram tablet RxNorm: 064946 1 Tablet(s) PO QID 201303/30/2013 Inactive Carafate 1 gram tablet RxNorm: 186656 1 Tablet(s) PO QID 201304/23/2013 Inactive Zithromax Z-Preston 250 mg tablet RxNorm: 030188 Tablet(s) PO zpack as directed 01/31/2013 04/12/2013 Inactive Zofran 4 mg tablet RxNorm: 006921 1 Tablet(s) PO Q6 PRN 12/0704/12/2013 Inactive Xanax 0.25 mg tablet RxNorm: 106162 Tablet(s) PO TAKE 1 TABLET BY MOUTH EVERY 4 TO 6 HOURS NEEDED 06/20/20122013 Inactive (Appended: Controlled substance eRx refill - RxReferenceNumber: [id number]|1|0|1) Xanax 0.25 mg tablet RxNorm: 107053 1 Tablet(s) PO Q4-6H q 4-6 hrs prn 06/20/2012 No Stop Date Active doxycycline monohydrate 100 mg tablet RxNorm: 6131745 1 Tablet(s) PO BID 05/17/2012 05/26/2012 Inactive doxycycline monohydrate 100 mg tablet RxNorm: 1975612 1 Tablet(s) PO BID 04/11/2012 04/20/2012 Inactive Kenalog 40 mg/mL Susp for Injection RxNorm: 7012385 1 Milliliter(s) Inj 04/11/2012 04/11/2012 Inactive metoprolol succinate ER 50 mg tablet,extended release 24 hr RxNorm: 228721 Tablet (s) PO TAKE 1 & 1/2 TABLETS BY MOUTH TWICE DAILY 02/01/2012 04/13/2013 Inactive Lipitor 40 mg tablet RxNorm: 710082 Tablet(s) PO TAKE 1 TABLET BY MOUTH EVERY DAY 02/01/2012 04/12/2013 Inactive Pradaxa 150 mg capsule RxNorm: 9024243 Capsule(s) PO 201112/03/2014 Inactive TAKE 1 CAPSULE BY MOUTH TWICE DAILY Xanax 0.25 mg tablet RxNorm: 562586 1 Tablet(s) PO Q4-6H q 4-6 hrs prn 12/28/2011 06/20/2012 Inactive metoprolol succinate ER 50 mg tablet,extended release 24 hr RxNorm: 178630 Tablet (s) PO 12/28/2011 01/31/2012 Inactive TAKE 1 & 1/2 TABLETS BY MOUTH TWICE DAILY Singulair 10 mg tablet RxNorm: 523004 Tablet(s) PO 12/28/2011 04/13/2013 Inactive TAKE ONE TABLET BY MOUTH DAILY clindamycin 150 mg capsule RxNorm: 308089 1 Capsule(s) PO QID 11/25/2011 12/01/2011 Inactive Influenza Virus Vaccine 0.5 mL RxNorm: IM 11/11/2011 11/11/2011 Inactive Pneumovax 23 25 mcg/0.5 mL Injection RxNorm: 499344 Milliliter(s) Inj 11/11/2011 11/11/2011 Inactive Biaxin 500 mg tablet RxNorm: 205732 1 Tablet(s) PO BID 201110/30/2011 Inactive Flagyl 500 mg tablet RxNorm: 668894 1 Tablet(s) PO TID 201109/03/2011 Inactive Flagyl 500 mg tablet RxNorm: 695983 1 Tablet(s) PO TID 201109/10/2011 Inactive doxycycline hyclate 100 mg tablet RxNorm: 8364694 1 Tablet(s) PO BID 09/04/2011 09/10/2011 Inactive doxycycline hyclate 100 mg tablet RxNorm: 5577443 1 Tablet(s) PO BID 09/04/2011 09/03/2011 Inactive Xopenex 1.25 mg/3 mL Neb Solution RxNorm: 961326 1 Unit(s) INH Q4 PRN 08/18/2011 12/15/2011 Inactive 1 box Xopenex 1.25 mg/3 mL Neb Solution RxNorm: 031622 1 Milliliter(s) INH Q4 PRN 08/18/2011 08/17/2011 Inactive 1 box Zithromax Z-Preston 250 mg Tab RxNorm: 585367 Tablet(s) PO UD 08/1008/11/2011 Inactive doxycycline hyclate 100 mg Tab RxNorm: 3218891 1 Tablet(s) PO BID 08/11/2011 08/11/2011 Inactive prednisone 10 mg Tab RxNorm: 501167 1 Tablet(s) PO BID q a.m. and q NOON x 5 days 08/11/2011 08/10/2011 Inactive prednisone 10 mg Tab RxNorm: 224661 1 Tablet(s) PO BID q a.m. and q NOON x 5 days 08/11/2011 08/15/2011 Inactive Kenalog 40 mg/mL Susp for Injection RxNorm: 6626120 1 Milliliter(s) Inj 08/11/2011 08/11/2011 Inactive doxycycline hyclate 100 mg Tab RxNorm: 2463890 1 Tablet(s) PO BID 08/11/2011 08/10/2011 Inactive nystatin 100,000 unit/mL Oral Susp RxNorm: 192515 6 Milliliter(s) PO QID 08/10/2011 08/16/2011 Inactive Jamie 60 mg Tab RxNorm: 760965 1 Tablet(s) PO daily 201101/23/2012 Inactive Jamie 60 mg Tab RxNorm: 602163 1 Tablet(s) PO daily 201107/27/2011 Inactive potassium chloride ER 10 mEq tablet,extended release RxNorm: 418977 1 Tablet(s) PO BID 07/27/2011 08/19/2012 Inactive Synthroid 75 mcg Tab RxNorm: 887221 Tablet(s) PO 07/06/2011 07/29/2012 Inactive one tab wednesday1/2 tab other days potassium chloride ER 10 mEq Tab RxNorm: 010755 1 Tablet(s) PO BID 07/02/2011 07/26/2011 Inactive Lasix 40 mg tablet RxNorm: 447934 1 Tablet(s) PO daily 201112/28/2011 Inactive Nexium 40 mg Capsule, delayed release RxNorm: 651832 1 Capsule(s) PO daily 06/25/2011 11/24/2011 Inactive Lexapro 10 mg Tab RxNorm: 076181 1 Tablet(s) PO daily 201107/14/2011 Inactive Carafate 100 mg/mL Oral Susp RxNorm: 357166 10 Milliliter(s) PO QID 06/25/2011 10/20/2011 Inactive dispense qs x 1 month nystatin 100,000 unit/mL Oral Susp RxNorm: 468072 3 Milliliter(s) PO QID swish, gargle, then swallow four times daily. 06/25/2011 07/14/2011 Inactive dispense qs x 10 days. Mucinex 1,200 mg 12 hr Tab RxNorm: 689407 1 Tablet(s) PO BID 07/21/2011 Inactive Lipitor 40 mg tablet RxNorm: 775248 1 Tablet(s) PO daily 201112/18/2011 Inactive lactobacillus acidophilus Cap RxNorm: 2 Capsule(s) PO BID 08/201107/14/2011 Inactive Mucinex 1,200 mg 12 hr Tab RxNorm: 285168 1 Tablet(s) PO BID 06/21/2011 Inactive lactobacillus acidophilus Cap RxNorm: 1 Capsule(s) PO BID 06/21/2011 Inactive Kenalog 40 mg/mL Susp for Injection RxNorm: 3338355 1 Milliliter(s) Inj 06/15/2011 06/15/2011 Inactive Flagyl 500 mg Tab RxNorm: 403294 1 Tablet(s) PO TID 201107/14/2011 Inactive doxycycline hyclate 100 mg Cap RxNorm: 5865968 1 Capsule(s) PO BID 06/15/2011 07/14/2011 Inactive clarithromycin 250 mg Tab RxNorm: 307848 1 Tablet(s) PO BID 07/14/2011 Inactive Xanax 0.25 mg tablet RxNorm: 908493 1 Tablet(s) PO Q4-6H q 4-6 hrs prn 05/27/2011 07/16/2011 Inactive Lasix 40 mg Tab RxNorm : 121917 3 Tablet(s) PO as directed 2 q am and 1 q noon 05/27/2011 07/01/2011 Inactive potassium chloride ER 10 mEq Tab RxNorm: 345989 1 Tablet(s) PO BID 05/27/2011 05/26/2011 Inactive KCL 10 meq RxNorm: 1 PO BID 05/27/201112/2011 Inactive potassium chloride ER 10 mEq Tab RxNorm: 273488 1 Tablet(s) PO BID 05/27/2011 06/25/2011 Inactive Pradaxa 75 mg Cap RxNorm: 1101461 2 Capsule(s) PO daily 09/29/2011 Inactive Biaxin 500 mg Tab RxNorm: 978803 1 Tablet(s) PO BID 201103/16/2011 Inactive Biaxin 500 mg Tab RxNorm: 523156 1 Tablet(s) PO BID 201107/14/2011 Inactive azithromycin 250 mg Tab RxNorm: 611388 1 Tablet(s) PO daily two by mouth daily x 3 days, then daily thereafter 02/06/2011 07/14/2011 Inactive two by mouth daily x 3 days, then daily thereafter until supply is exhausted azithromycin 250 mg Tab RxNorm: 216011 1 Tablet(s) PO daily two by mouth daily x 3 days, then daily thereafter 02/06/2011 02/05/2011 Inactive two by mouth daily x 3 days, then daily thereafter until supply is exhausted azithromycin 250 mg Tab RxNorm: 412438 1 Tablet(s) PO daily two by mouth daily x 3 days, then daily thereafter 02/06/2011 02/05/2011 Inactive two by mouth daily x 3 days, then daily thereafter until supply is exhausted Valturna 300 mg-320 mg Tab RxNorm: 0933496 Tablet(s) PO 201007/14/2011 Inactive TAKE 1 TABLET BY MOUTH EVERY DAY Kenalog 40 mg/mL Susp for Injection RxNorm: 8803492 2 Milliliter(s) Inj 11/20/2010 11/20/2010 Inactive Avelox 400 mg Tab RxNorm: 772605 1 Tablet(s) PO daily 201007/14/2011 Inactive Biaxin 500 mg Tab RxNorm: 804029 1 Tablet(s) PO BID 201011/15/2010 Inactive Pradaxa 150 mg Cap RxNorm: 4958540 1 Capsule(s) PO BID 201007/14/2011 Inactive Zyrtec oral RxNorm: 77642 oral No Start Date Active doxazosin 2 mg tablet RxNorm: 772506 1/2 Tablet(s) PO BID No Start Date 12/08/2015 Inactive Pyridium 200 mg tablet RxNorm: 7837198 1 Tablet(s) PO TID PRN No Start Date 10/28/2016 Inactive ondansetron 4 mg disintegrating tablet RxNorm: 549540 1 Tablet(s) PO Q4 PRN No Start Date 10/21/2017 Inactive Pradaxa 75 mg Cap RxNorm: 3282462 1 Capsule(s) PO daily No Start Date 05/04/2011 Inactive Singulair 10 mg tablet RxNorm: 958920 1 Tablet(s) PO daily No Start Date 07/14/2011 Inactive hydrocodone-acetaminophen 5 mg-325 mg tablet RxNorm: 014305 1 Tablet(s) PO Q6 PRN No Start Date 04/12/2013 Inactive Toprol XL 100 mg 24 hr Tab RxNorm: 614386 1 Tablet(s) PO BID No Start Date 07/14/2011 Inactive Zofran 4 mg tablet RxNorm: 313855 1 Tablet(s) PO Q6 PRN No Start Date 12/06/2012 Inactive Vitamin D2 50,000 unit capsule RxNorm: 620631 1 Capsule(s) PO QW No Start Date 05/15/2014 Inactive prednisone 10 mg tablet RxNorm: 435385 Tablet(s) PO UD No Start Date 06/15/2017 Inactive 6,5,4,3,2,1 Lipitor 40 mg Tab RxNorm: 084876 1 Tablet(s) PO daily No Start Date 06/21/2011 Inactive Trilipix 135 mg Cap RxNorm: 266285 Capsule(s) PO No Start Date 11/26/2010 Inactive Eliquis 5 mg tablet RxNorm: 8987361 1 Tablet(s) PO BID No Start Date 12/08/2015 Inactive KCL 10 meq RxNorm: 1 PO BID No Start Date 05/26/2011 Inactive Diovan 80 mg Tab RxNorm: 960854 1 Tablet(s) PO QHS No Start Date 07/14/2011 Inactive Lipitor 20 mg tablet RxNorm: 018209 1 Tablet(s) PO daily No Start Date 04/13/2013 Inactive Zithromax Z-Preston 250 mg tablet RxNorm: 553896 Tablet(s) PO No Start Date 01/30/2013 Inactive aspirin 81 mg Tab, Delayed Release RxNorm: 114412 1 Tablet(s) PO daily No Start Date 07/14/2011 Inactive prednisone 20 mg Tab RxNorm: 210272 Tablet(s) PO UD 3 tabs x 1 day, then 2 tabs daily x 2 days then 1 tab daily x 1 days, 1/2 daily x 1 day then 1/2 QOD x 2 doses then stop No Start Date 07/14/2011 Inactive Flonase 50 mcg/actuation Nasal [place] RxNorm: 0947030 2 [place] NASAL daily No Start Date 02/17/2016 Inactive hydrocodone 2.5 mg-guaifenesin 200 mg/5 mL syrup RxNorm: 211543 10 Unit Dose PO Q6 PRN No Start Date 04/25/2017 Inactive potassium chloride ER 10 mEq tablet,extended release RxNorm: 563398 1 Tablet(s) PO daily No Start Date 10/14/2016 Inactive Diovan 160 mg Tab RxNorm: 639019 1 Tablet(s) PO QHS No Start Date 12/20/2011 Inactive Lasix 40 mg Tab RxNorm : 200709 3 Tablet(s) PO as directed 2 q am and 1 q noon No Start Date 05/26/2011 Inactive metoprolol succinate ER 50 mg tablet,extended release 24 hr RxNorm: 250742 1 1 / 2 Tablet(s) PO BID No Start Date 2011 Inactive Carafate 1 gram Tab RxNorm: 110373 1 Tablet(s) PO TID No Start Date 07/14/2011 Inactive doxycycline hyclate 100 mg tablet RxNorm: 575487 1 Tablet(s) PO BID No Start Date 08/10/2016 Inactive Zithromax Z-Preston 250 mg Tab RxNorm: 541544 Oral No Start Date 08/10/2011 Inactive prednisone 20 mg Tab RxNorm: 633097 Tablet(s) PO No Start Date 04/06/2011 Inactive 3 tabs x 2 days, 2 tabs x 2 days, 1 tab x 2 days, 1/2 daily x 4 days then stop Bentyl 10 mg Cap RxNorm: 373927 1 Capsule(s) PO BID No Start Date 07/14/2011 Inactive Xarelto 15 mg tablet RxNorm: 9829563 1 Tablet(s) PO daily No Start Date 06/27/2017 Inactive Valturna 300 mg-320 mg Tab RxNorm: 9805938 1 Tablet(s) PO daily No Start Date 01/19/2011 Inactive Vitamin D 1,000 unit Tab RxNorm: 373500 1 Tablet(s) PO daily No Start Date 07/14/2011 Inactive Lexapro 10 mg Tab RxNorm: 473954 1 Tablet(s) PO daily No Start Date 04/06/2011 Inactive Synthroid 75 mcg Tab RxNorm: 899262 Tablet(s) PO No Start Date 07/05/2011 Inactive Protonix 40 mg Tab RxNorm: 719493 1 Tablet(s) PO daily No Start Date 07/14/2011 Inactive ranitidine 150 mg tablet RxNorm: 786034 1 Tablet(s) PO BID No Start Date 04/25/2017 Inactive prednisone 20 mg tablet RxNorm: 628812 Tablet(s) PO 3daily x 2days, then 2daily x2days, then 1daily x2days, then 1/2 daily x 2days then stop No Start Date 12/12/2013 Inactive Nexium 40 mg Cap RxNorm: 461868 1 Capsule(s) PO daily No Start Date 06/03/2011 Inactive Xanax 0.25 mg Tab RxNorm: 691755 1 Tablet(s) PO Q4-6H q 4-6 hrs prn No Start Date 04/06/2011 Inactive Synthroid 50 mcg Tab RxNorm: 248199 1 Tablet(s) PO daily No Start Date 07/14/2011 Inactive Pradaxa 150 mg capsule RxNorm: 6562072 1 Capsule(s) PO BID No Start Date 12/30/2011 Inactive metoprolol tartrate 25 mg tablet RxNorm: 150424 1 Tablet(s) PO TID No Start Date 12/08/2015 Inactive Singulair 5 mg Chewable Tab RxNorm: 879072 1 Tablet(s) PO every other day No Start Date 04/13/2013 Inactive Pepcid oral RxNorm: 4278 oral No Start Date 05/01/2018 Inactive Medication Administered Medication Codes Instructions Start Date Status Kenalog 40 mg/mL suspension for injection RxNorm: 2032536 Milliliter 05/09/2018 No longer Active ketorolac 60 mg/2 mL intramuscular solution RxNorm: 5373171 Milliliter 03/21/2018 No longer Active cyanocobalamin (vit B-12) 1,000 mcg/mL injection solution RxNorm: 827355 Milliliter 09/13/2015 No longer Active Kenalog 40 mg/mL suspension for injection RxNorm: 6001561 Milliliter 03/27/2015 No longer Active Kenalog 40 mg/mL suspension for injection RxNorm: 8833712 Milliliter 12/11/2014 No longer Active Kenalog 40 mg/mL suspension for injection RxNorm: 1423691 1Milliliter 04/14/2013 No longer Active Kenalog 40 mg/mL Susp for Injection RxNorm: 1103744 1Milliliter 04/11/2012 No longer Active Influenza Virus Vaccine 0.5 mL RxNorm: 11/11/2011 No longer Active Pneumovax 23 25 mcg/0.5 mL Injection RxNorm: 401361 Milliliter 11/11/2011 No longer Active Kenalog 40 mg/mL Susp for Injection RxNorm: 1792953 1Milliliter 08/11/2011 No longer Active Kenalog 40 mg/mL Susp for Injection RxNorm: 3665722 1Milliliter 06/15/2011 No longer Active Kenalog 40 mg/mL Susp for Injection RxNorm: 7080195 2Milliliter 11/20/2010 No longer Active Immunizations Vaccine [...] 11/01/2009 completed Assessments Condition Codes Effective Dates Cough ICD-10: R05 ICD-9: 786.2 05/09/2018 Acute [...] medications ICD-9: V58.69 04/12/2013 ESSENTIAL HYPERTENSION SNOMED: 84328808 ICD-9: 401.9 04/12/2013 ATRIAL FIBRILLATION ICD-9: 427.31 [...] Knee pain, acute ICD-9: 719.46 2011 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 Encounter for general adult medical [...] Item Item Code Result Date Comp Metabolic Wdj274 NA 139 mEq/L 04/26/2018 Comp Metabolic Sxj065 K 4.2 mEq/L 04/26/2018 Comp Metabolic Ali523 CL 103 mEq/L 04/26/2018 Comp Metabolic Fzx008 CO2 30.0 mEq/L 04/26/2018 Comp Metabolic Sys837 ANION GAP 10 04/26/2018 Comp Metabolic Pgs686 GLUCOSE 105 mg/dL 04/26/2018 Comp Metabolic Moz004 Creat 1.0 mg/dL 04/26/2018 Comp Metabolic Hrl965 eGFR 62 ml/min/1.73m2 04/26/2018 Comp Metabolic Cph078 BUN 13 mg/dL 04/26/2018 Comp Metabolic Hef557 B/C Ratio 13.7 Ratio 04/26/2018 Comp Metabolic Jln370 CALCIUM 9.4 mg/dL 04/26/2018 Comp Metabolic Sjw312 ALK PHOS 116 U/L 04/26/2018 Comp Metabolic Gsi929 AST(SGOT) 13 U/L 04/26/2018 Comp Metabolic Rkm711 ALT(SGPT) 12 U/L 04/26/2018 Comp Metabolic Wxu606 BILI T 0.6 mg/dL 04/26/2018 Comp Metabolic Eez723 ALBUMIN 3.8 g/dL 04/26/2018 Comp Metabolic Tmr828 TPRO 6.4 g/dL 04/26/2018 Comp Metabolic Oah936 GLOB 2.6 g/dL 04/26/2018 Comp Metabolic Jvz890 A/G Ratio 1.4 Ratio 04/26/2018 Comp Metabolic One911 Osmo 278 mOsmo 04/26/2018 Lipid Ord30 CHOL [...] 24.5 % 04/26/2018 Cbc With Differential Ord2 Robertson% 6.7 % 04/26/2018 Cbc With Differential Ord2 [...] 2.47 K/ul 04/26/2018 Cbc With Differential Ord2 Robertson ABS# 0.7 K/ul 04/26/2018 Cbc With Differential [...] Ord30 C/HDL 3.5 Ratio 03/15/2017 Comp Metabolic Frr453 NA 140 mEq/L 03/15/2017 Comp Metabolic Chk511 K 3.6 mEq/L 03/15/2017 Comp Metabolic Xfw866 CL 104 mEq/L 03/15/2017 Comp Metabolic Ygy828 CO2 27.0 mEq/L 03/15/2017 Comp Metabolic Yua852 ANION GAP 13 03/15/2017 Comp Metabolic Ovu863 GLUCOSE 93 mg/dL 03/15/2017 Comp Metabolic Tqp228 Creat 0.9 mg/dL 03/15/2017 Comp Metabolic Jew144 eGFR 68 ml/min/1.73m2 03/15/2017 Comp Metabolic Wds270 BUN 10 mg/dL 03/15/2017 Comp Metabolic Zvb069 B/C Ratio 11.4 Ratio 03/15/2017 Comp Metabolic Jwr854 CALCIUM 9.4 mg/dL 03/15/2017 Comp Metabolic Kot398 ALK PHOS 84 U/L 03/15/2017 Comp Metabolic Fwf372 AST(SGOT) 14 U/L 03/15/2017 Comp Metabolic Ahy819 ALT(SGPT) 15 U/L 03/15/2017 Comp Metabolic Bwk577 BILI T 0.5 mg/dL 03/15/2017 Comp Metabolic Bps830 ALBUMIN 3.6 g/dL 03/15/2017 Comp Metabolic Igl448 TPRO 6.0 g/dL 03/15/2017 Comp Metabolic Olp553 GLOB 2.4 g/dL 03/15/2017 Comp Metabolic Psv928 A/G Ratio 1.5 Ratio 03/15/2017 Comp Metabolic Jqp702 Osmo 278 mOsmo 03/15/2017 Magnesium Ord90 Mag [...] 30.4 pg 03/15/2017 Cbc With Differential Ord2 Robertson% 6.7 % 03/15/2017 Cbc With Differential Ord2 [...] 2.24 K/ul 03/15/2017 Cbc With Differential Ord2 Robertson ABS# 0.5 K/ul 03/15/2017 Cbc With Differential [...] Ord15 CALCIUM 9.4 mg/dL 01/15/2017 Comp Metabolic Fim734 NA 137 mEq/L 12/31/2016 Comp Metabolic Sbc381 K 3.2 mEq/L 12/31/2016 Comp Metabolic Yjh322 CL 95 mEq/L 12/31/2016 Comp Metabolic Zmw080 CO2 30.0 mEq/L 12/31/2016 Comp Metabolic Sxo745 ANION GAP 15 12/31/2016 Comp Metabolic Abn739 GLUCOSE 111 mg/dL 12/31/2016 Comp Metabolic Eib077 Creat 1.3 mg/dL 12/31/2016 Comp Metabolic Qcf112 eGFR 45 ml/min/1.73m2 12/31/2016 Comp Metabolic Wqx926 BUN 14 mg/dL 12/31/2016 Comp Metabolic Wez675 B/C Ratio 11.1 Ratio 12/31/2016 Comp Metabolic Bfv337 CALCIUM 10.0 mg/dL 12/31/2016 Comp Metabolic Yhr456 ALK PHOS 61 U/L 12/31/2016 Comp Metabolic Qpp046 AST(SGOT) 14 U/L 12/31/2016 Comp Metabolic Hof669 ALT(SGPT) 13 U/L 12/31/2016 Comp Metabolic Rfw018 BILI T 0.9 mg/dL 12/31/2016 Comp Metabolic Ozs820 ALBUMIN 3.8 g/dL 12/31/2016 Comp Metabolic Cbd851 TPRO 6.7 g/dL 12/31/2016 Comp Metabolic Dcj584 GLOB 2.9 g/dL 12/31/2016 Comp Metabolic Oxo074 A/G Ratio 1.3 Ratio 12/31/2016 Comp Metabolic Zzs826 Osmo 275 mOsmo 12/31/2016 Cbc With Differential [...] 30.3 pg 12/31/2016 Cbc With Differential Ord2 Robertson% 11.2 % 12/31/2016 Cbc With Differential Ord2 [...] 1.89 K/ul 12/31/2016 Cbc With Differential Ord2 Robertson ABS# 0.7 K/ul 12/31/2016 Cbc With Differential Ord2 Eos ABS# 0.1 K/ul 12/31/2016 Cbc With Differential Ord2 Baso ABS# 0.1 K/ul 12/31/2016 Urine Culture Ucult Complete >100,000 col/ml aerobic growth sent to ref lab 10/30/2016 Tsh Ord6 hTSH II 2.88 uIU/mL 09/15/2016 Comp Metabolic Dyo578 NA 139 mEq/L 09/15/2016 Comp Metabolic Nww231 K 4.0 mEq/L 09/15/2016 Comp Metabolic Ord333 CL 104 mEq/L 09/15/2016 Comp Metabolic Mzf014 CO2 27.0 mEq/L 09/15/2016 Comp Metabolic Osm057 ANION GAP 12 09/15/2016 Comp Metabolic Cvc897 GLUCOSE 105 mg/dL 09/15/2016 Comp Metabolic Yxd166 Creat 0.9 mg/dL 09/15/2016 Comp Metabolic Upk224 eGFR 67 ml/min/1.73m2 09/15/2016 Comp Metabolic Iwu355 BUN 14 mg/dL 09/15/2016 Comp Metabolic Tqe261 B/C Ratio 15.7 Ratio 09/15/2016 Comp Metabolic Odh892 CALCIUM 9.0 mg/dL 09/15/2016 Comp Metabolic Rdj701 ALK PHOS 85 U/L 09/15/2016 Comp Metabolic Tyo930 AST(SGOT) 12 U/L 09/15/2016 Comp Metabolic Ief091 ALT(SGPT) 11 U/L 09/15/2016 Comp Metabolic Thw628 BILI T 0.5 mg/dL 09/15/2016 Comp Metabolic Lby998 ALBUMIN 3.4 g/dL 09/15/2016 Comp Metabolic Lxq739 TPRO 5.8 g/dL 09/15/2016 Comp Metabolic Yyc288 GLOB 2.4 g/dL 09/15/2016 Comp Metabolic Sgo413 A/G Ratio 1.4 Ratio 09/15/2016 Comp Metabolic Ewq008 Osmo 278 mOsmo 09/15/2016 Vitamin D 25 Oh Uba5563 VITAMIN D, 25 HYDROXY 25.95 ng/mL Lipid [...] 9.2 mg/dL 01/13/2016 Vitamin D 25 Oh Ydo4975 VITAMIN D, 25 HYDROXY 38.03 ng/mL Comp Metabolic Ipl632 NA 139 mEq/L 11/28/2015 Comp Metabolic Nor303 K 4.0 mEq/L 11/28/2015 Comp Metabolic Vgw449 CL 105 mEq/L 11/28/2015 Comp Metabolic Ouu478 CO2 25.0 mEq/L 11/28/2015 Comp Metabolic Xgn533 ANION GAP 13 11/28/2015 Comp Metabolic Iik511 GLUCOSE 100 mg/dL 11/28/2015 Comp Metabolic Uey379 Creat 1.1 mg/dL 11/28/2015 Comp Metabolic Wen553 eGFR 55 ml/min/1.73m2 11/28/2015 Comp Metabolic Ooo982 BUN 13 mg/dL 11/28/2015 Comp Metabolic Xhh663 B/C Ratio 12.3 Ratio 11/28/2015 Comp Metabolic Uyj019 CALCIUM 9.2 mg/dL 11/28/2015 Comp Metabolic Yma200 ALK PHOS 85 U/L 11/28/2015 Comp Metabolic Zgq507 AST(SGOT) 15 U/L 11/28/2015 Comp Metabolic Dco587 ALT(SGPT) 15 U/L 11/28/2015 Comp Metabolic Qne908 BILI T 0.5 mg/dL 11/28/2015 Comp Metabolic Mfw696 ALBUMIN 3.7 g/dL 11/28/2015 Comp Metabolic Qtt896 TPRO 6.4 g/dL 11/28/2015 Comp Metabolic Mid352 GLOB 2.7 g/dL 11/28/2015 Comp Metabolic Tcm735 A/G Ratio 1.4 Ratio 11/28/2015 Comp Metabolic Ufp621 Osmo 278 mOsmo 11/28/2015 Tsh Ord6 hTSH II 1.98 uIU/mL 11/28/2015 Free T4 Nmf008 FREE T4 1.04 ng/dL 11/28/2015 Cbc With [...] 30.9 pg 11/28/2015 Cbc With Differential Ord2 Robertson% 6.7 % 11/28/2015 Cbc With Differential Ord2 [...] 2.19 K/ul 11/28/2015 Cbc With Differential Ord2 Robertson ABS# 0.6 K/ul 11/28/2015 Cbc With Differential Ord2 Eos ABS# 0.1 K/ul 11/28/2015 Cbc With Differential Ord2 Baso ABS# 0.1 K/ul 11/28/2015 Comp Metabolic Vxc974 NA 135 mEq/L 10/15/2015 Comp Metabolic Lyi834 K 3.5 mEq/L 10/15/2015 Comp Metabolic Fjd896 CL 100 mEq/L 10/15/2015 Comp Metabolic Qns998 CO2 29.0 mEq/L 10/15/2015 Comp Metabolic Mwy643 ANION GAP 10 10/15/2015 Comp Metabolic Pwd319 GLUCOSE 88 mg/dL 10/15/2015 Comp Metabolic Nua273 Creat 0.9 mg/dL 10/15/2015 Comp Metabolic Miz736 eGFR 67 ml/min/1.73m2 10/15/2015 Comp Metabolic Wps786 BUN 16 mg/dL 10/15/2015 Comp Metabolic Fms542 B/C Ratio 17.8 Ratio 10/15/2015 Comp Metabolic Bry579 CALCIUM 9.4 mg/dL 10/15/2015 Comp Metabolic Pcj407 ALK PHOS 96 U/L 10/15/2015 Comp Metabolic Vhk090 AST(SGOT) 15 U/L 10/15/2015 Comp Metabolic Dvx291 ALT(SGPT) -125 U/L 10/15/2015 Comp Metabolic Pdc560 BILI T 0.4 mg/dL 10/15/2015 Comp Metabolic Yvz614 ALBUMIN 4.2 g/dL 10/15/2015 Comp Metabolic Dse352 TPRO 7.2 g/dL 10/15/2015 Comp Metabolic Jcy668 GLOB 3.1 g/dL 10/15/2015 Comp Metabolic Szb242 A/G Ratio 1.4 Ratio 10/15/2015 Comp Metabolic Poh431 Osmo 271 mOsmo 10/15/2015 Comp Metabolic Kkf991 NA 135 mEq/L 10/15/2015 Comp Metabolic Oew175 K 3.5 mEq/L 10/15/2015 Comp Metabolic Ibn899 CL 100 mEq/L 10/15/2015 Comp Metabolic Gth367 CO2 29.0 mEq/L 10/15/2015 Comp Metabolic Mlb320 ANION GAP 10 10/15/2015 Comp Metabolic Egs719 GLUCOSE 88 mg/dL 10/15/2015 Comp Metabolic Bhc037 Creat 0.9 mg/dL 10/15/2015 Comp Metabolic Pqn156 eGFR 67 ml/min/1.73m2 10/15/2015 Comp Metabolic Nvq826 BUN 16 mg/dL 10/15/2015 Comp Metabolic Mpy614 B/C Ratio 17.8 Ratio 10/15/2015 Comp Metabolic Rrs218 CALCIUM 9.4 mg/dL 10/15/2015 Comp Metabolic Rih789 ALK PHOS 96 U/L 10/15/2015 Comp Metabolic Awv199 AST(SGOT) 15 U/L 10/15/2015 Comp Metabolic Eio828 ALT(SGPT) 14 U/L 10/15/2015 Comp Metabolic Dzq214 BILI T 0.4 mg/dL 10/15/2015 Comp Metabolic Owb899 ALBUMIN 4.2 g/dL 10/15/2015 Comp Metabolic Ydj632 TPRO 7.2 g/dL 10/15/2015 Comp Metabolic Zjh040 GLOB 3.1 g/dL 10/15/2015 Comp Metabolic Mca109 A/G Ratio 1.4 Ratio 10/15/2015 Comp Metabolic Dmz676 Osmo 271 mOsmo 10/15/2015 Magnesium Ord90 Mag 2.2 mg/dL 10/15/2015 Magnesium Ord90 Mag 1.9 mg/dL 09/05/2015 Comp Metabolic Ldx782 NA 138 mEq/L 09/05/2015 Comp Metabolic Ukj443 K 3.7 mEq/L 09/05/2015 Comp Metabolic Xxu013 CL 99 mEq/L 09/05/2015 Comp Metabolic Mnh070 CO2 30.0 mEq/L 09/05/2015 Comp Metabolic Mxa261 ANION GAP 13 09/05/2015 Comp Metabolic Tfx705 GLUCOSE 97 mg/dL 09/05/2015 Comp Metabolic Gsw100 Creat 1.1 mg/dL 09/05/2015 Comp Metabolic Xjf033 eGFR 54 ml/min/1.73m2 09/05/2015 Comp Metabolic Bnk606 BUN 18 mg/dL 09/05/2015 Comp Metabolic Qdj250 B/C Ratio 16.7 Ratio 09/05/2015 Comp Metabolic Bpx056 CALCIUM 9.6 mg/dL 09/05/2015 Comp Metabolic Rsr172 ALK PHOS 96 U/L 09/05/2015 Comp Metabolic Rri762 AST(SGOT) 15 U/L 09/05/2015 Comp Metabolic Cau561 ALT(SGPT) 14 U/L 09/05/2015 Comp Metabolic Ovh723 BILI T 0.5 mg/dL 09/05/2015 Comp Metabolic Mpj914 ALBUMIN 4.1 g/dL 09/05/2015 Comp Metabolic Swp402 TPRO 7.0 g/dL 09/05/2015 Comp Metabolic Gla366 GLOB 3.0 g/dL 09/05/2015 Comp Metabolic Odn508 A/G Ratio 1.4 Ratio 09/05/2015 Comp Metabolic Ufb340 Osmo 277 mOsmo 09/05/2015 Vitamin D 25 Oh Smd9738 VITAMIN D, 25 HYDROXY 22.39 ng/mL Magnesium Ord90 Mag 2.0 mg/dL 06/11/2015 Tsh Ord6 hTSH II 3.52 uIU/mL 06/11/2015 Comp Metabolic Edf599 NA 135 mEq/L 06/11/2015 Comp Metabolic Scs241 K 4.3 mEq/L 06/11/2015 Comp Metabolic Jsz072 CL 103 mEq/L 06/11/2015 Comp Metabolic Epw086 CO2 25.0 mEq/L 06/11/2015 Comp Metabolic Kbo388 ANION GAP 11 06/11/2015 Comp Metabolic Wyd876 GLUCOSE 75 mg/dL 06/11/2015 Comp Metabolic Bzp174 Creat 0.9 mg/dL 06/11/2015 Comp Metabolic Lyx420 eGFR 69 ml/min/1.73m2 06/11/2015 Comp Metabolic Eoq946 BUN 22 mg/dL 06/11/2015 Comp Metabolic Ntu212 B/C Ratio 25.3 Ratio 06/11/2015 Comp Metabolic Bbo502 CALCIUM 9.2 mg/dL 06/11/2015 Comp Metabolic Lml390 ALK PHOS 88 U/L 06/11/2015 Comp Metabolic Zme056 AST(SGOT) 13 U/L 06/11/2015 Comp Metabolic Sjp521 ALT(SGPT) 15 U/L 06/11/2015 Comp Metabolic Pgs685 BILI T 0.4 mg/dL 06/11/2015 Comp Metabolic Hze614 ALBUMIN 3.7 g/dL 06/11/2015 Comp Metabolic Uar969 TPRO 6.6 g/dL 06/11/2015 Comp Metabolic Rhi619 GLOB 2.9 g/dL 06/11/2015 Comp Metabolic Hwm566 A/G Ratio 1.3 Ratio 06/11/2015 Comp Metabolic Pca736 Osmo 272 mOsmo 06/11/2015 Free T4 Qsg524 FREE T4 0.95 ng/dL 06/11/2015 Cbc With [...] 31.3 pg 06/11/2015 Cbc With Differential Ord2 Robertson% 7.4 % 06/11/2015 Cbc With Differential Ord2 [...] 2.57 K/ul 06/11/2015 Cbc With Differential Ord2 Robertson ABS# 0.9 K/ul 06/11/2015 Cbc With Differential [...] 13.8 % 11/16/2014 Vitamin D 25 Oh Lcr1365 VITAMIN D, 25 HYDROXY 22.85 ng/mL Lipid Ord30 CHOL 206 mg/dL 11/16/2014 Lipid Ord30 HDL 49.0 mg/dl 11/16/2014 Lipid Ord30 TRIG 104 mg/dL 11/16/2014 Lipid Ord30 LDL 136 mg/dL 11/16/2014 Lipid Ord30 C/HDL 4.2 Ratio 11/16/2014 Tsh Ord6 hTSH II 2.05 uIU/mL 11/16/2014 Comp Metabolic Bor054 NA 138 mEq/L 11/16/2014 Comp Metabolic Mru430 K 4.0 mEq/L 11/16/2014 Comp Metabolic Mqb960 CL 104 mEq/L 11/16/2014 Comp Metabolic Ovq096 CO2 27.0 mEq/L 11/16/2014 Comp Metabolic Nel506 ANION GAP 11 11/16/2014 Comp Metabolic Uap476 GLUCOSE 94 mg/dL 11/16/2014 Comp Metabolic Btz563 Creat 0.9 mg/dL 11/16/2014 Comp Metabolic Mam513 eGFR 64 ml/min/1.73m2 11/16/2014 Comp Metabolic Ifd484 BUN 12 mg/dL 11/16/2014 Comp Metabolic Vyx556 B/C Ratio 12.9 Ratio 11/16/2014 Comp Metabolic Yfj782 CALCIUM 9.4 mg/dL 11/16/2014 Comp Metabolic Qta603 ALK PHOS 88 U/L 11/16/2014 Comp Metabolic Pht155 AST(SGOT) 14 U/L 11/16/2014 Comp Metabolic Fji478 ALT(SGPT) 12 U/L 11/16/2014 Comp Metabolic Idy976 BILI T 0.6 mg/dL 11/16/2014 Comp Metabolic Nkq663 ALBUMIN 3.7 g/dL 11/16/2014 Comp Metabolic Dra909 TPRO 6.3 g/dL 11/16/2014 Comp Metabolic Yih540 GLOB 2.6 g/dL 11/16/2014 Comp Metabolic Aqh434 A/G Ratio 1.4 Ratio 11/16/2014 Comp Metabolic Uhc069 Osmo 275 mOsmo 11/16/2014 %Hba1C Vce880 % HbA1c 44544-1 5.7 % 11/16/2014 %Hba1C Wkf809 Gluc Ave 117 mg/dL 11/16/2014 GFR CALC 1307150 GFR AA >60 ML/MIN 04/12/2013 GFR CALC 0495478 GFR NON-AA >60 ML/MIN 04/12/2013 TSH 4663909 TSH 2.194 uIU/ML 04/12/2013 VIT B 12 0994882 VIT B 12 415 PG/ML 04/12/2013 CBC 3832495 WBC 8.8 10e9/L 04/12/2013 CBC 2513549 RBC 4.59 10e12/L 04/12/2013 CBC 7104440 HGB 14.3 g/dL 04/12/2013 CBC 5705226 HCT DET 42.4 % 04/12/2013 CBC 4605529 MCV 92.4 fL 04/12/2013 CBC 0403734 MCH 31.2 pg 04/12/2013 CBC 5975469 MCHC 33.7 g/dL 04/12/2013 CBC 8999408 PLT 213 10e9/L 04/12/2013 CBC 5071768 MPV 12.8 fL 04/12/2013 CBC 8126839 LULU % 61.8 % 04/12/2013 CBC 1576801 LY % 29.2 % 04/12/2013 CBC 7850678 MON % 7.2 % 04/12/2013 CBC 7524908 EOS % 1.3 % 04/12/2013 CBC 9325840 BASO % 0.5 % 04/12/2013 CBC 1844412 RDW 12.6 % 04/12/2013 CBC 5534281 ABS LULU 5.44 10e9/L 04/12/2013 CBC 8192323 ABS LYMPH 2.57 10e9/L 04/12/2013 CBC 8715540 ABS MONO 0.63 10e9/L 04/12/2013 CBC 8408658 ABS EOS 0.11 10e9/L 04/12/2013 CBC 7710839 ABS BASO 0.04 10e9/L 04/12/2013 CBC 3226212 RDW-SD 41.3 fL 04/12/2013 FREE T4 0254052 FREE T4 1.09 NG/DL 04/12/2013 A1C HPLC 1778464 A1C HPLC 56117-2 5.4 % 04/12/2013 CHEM 14 6613731 AST 12 U/L 04/12/2013 CHEM 14 7974668 ALT 11 IU/L 04/12/2013 CHEM 14 6360225 BUN 14 MG/DL 04/12/2013 CHEM 14 7508028 ALBUMIN 4.1 GM/DL 04/12/2013 CHEM 14 9892246 CHLORIDE 105 MMOL/L 04/12/2013 CHEM 14 3293021 BILI TOT 0.6 MG/DL 04/12/2013 CHEM 14 6072605 ALK PHOS 81 U/L 04/12/2013 CHEM 14 1578548 SODIUM 138 MMOL/L 04/12/2013 CHEM 14 1397986 CREATININE 0.86 MG/DL 04/12/2013 CHEM 14 8823239 CALCIUM 9.8 MG/DL 04/12/2013 CHEM 14 0459204 POTASSIUM 4.1 MMOL/L 04/12/2013 CHEM 14 0119609 PROT TOT 6.6 GM/DL 04/12/2013 CHEM 14 3004592 GLUCOSE 112 MG/DL 04/12/2013 CHEM 14 1039475 BICARB 27 MMOL/L 04/12/2013 CHEM 14 2677901 ANION GAP 6 MEQ/L 04/12/2013 LIPID GRP HDL TEST 55 MG/DL 04/12/2013 LIPID GRP TRIG 107 MG/DL 04/12/2013 LIPID GRP TEST LDL 193 MG/DL 04/12/2013 LIPID GRP CHOL 269 MG/DL 04/12/2013 LIPID GRP RCHOL/HDL 4.89 RATIO 04/12/2013 NICOT QN S 1392175 NICOTIN S < 2.0 NG/ML 03/07/2012 NICOT QN S 9188603 XCOTININ S < 2.0 NG/ML 03/07/2012 CBC 6736192 WBC 8.1 10e9/L 03/02/2012 CBC 5876716 RBC 4.44 10e12/L 03/02/2012 CBC 3498089 HGB 13.8 g/dL 03/02/2012 CBC 9392886 HCT DET 41.3 % 03/02/2012 CBC 8899543 MCV 93.0 fL 03/02/2012 CBC 7392222 MCH 31.1 pg 03/02/2012 CBC 9723834 MCHC 33.4 g/dL 03/02/2012 CBC 9320923 PLT 188 10e9/L 03/02/2012 CBC 1689190 MPV 14.3 fL 03/02/2012 CBC 5421471 LULU % 61.5 % 03/02/2012 CBC 1750216 LY % 28.8 % 03/02/2012 CBC 3908935 MON % 8.0 % 03/02/2012 CBC 0277506 EOS % 1.1 % 03/02/2012 CBC 2742024 BASO % 0.6 % 03/02/2012 CBC 3949787 RDW 14.0 % 03/02/2012 CBC 5496459 ABS LULU 4.98 10e9/L 03/02/2012 CBC 1985331 ABS LYMPH 2.33 10e9/L 03/02/2012 CBC 5685588 ABS MONO 0.65 10e9/L 03/02/2012 CBC 1123339 ABS EOS 0.09 10e9/L 03/02/2012 CBC 2621384 ABS BASO 0.05 10e9/L 03/02/2012 CBC 3075034 RDW-SD 46.3 fL 03/02/2012 LIPID GRP HDL TEST 37 MG/DL 03/02/2012 LIPID GRP TRIG 136 MG/DL 03/02/2012 LIPID GRP TEST LDL 106 MG/DL 03/02/2012 LIPID GRP CHOL 170 MG/DL 03/02/2012 LIPID GRP RCHOL/HDL 4.59 RATIO 03/02/2012 GFR CALC 6359345 GFR AA >60 ML/MIN 03/02/2012 GFR CALC 9741559 GFR NON-AA >60 ML/MIN 03/02/2012 FREE T4 3111913 FREE T4 1.09 NG/DL 03/02/2012 A1C HPLC 9079069 A1C HPLC 57787-2 5.4 % 03/02/2012 CHEM 14 5397802 AST 17 U/L 03/02/2012 CHEM 14 8406930 ALT 22 IU/L 03/02/2012 CHEM 14 8712794 BUN 15 MG/DL 03/02/2012 CHEM 14 2824275 ALBUMIN 4.0 GM/DL 03/02/2012 CHEM 14 9455677 CHLORIDE 107 MMOL/L 03/02/2012 CHEM 14 9463384 BILI TOT 0.4 MG/DL 03/02/2012 CHEM 14 7771066 ALK PHOS 83 U/L 03/02/2012 CHEM 14 9622576 SODIUM 141 MMOL/L 03/02/2012 CHEM 14 6741705 CREATININE 0.86 MG/DL 03/02/2012 CHEM 14 9291896 CALCIUM 9.5 MG/DL 03/02/2012 CHEM 14 2336398 POTASSIUM 4.0 MMOL/L 03/02/2012 CHEM 14 4905459 PROT TOT 6.6 GM/DL 03/02/2012 CHEM 14 3398541 GLUCOSE 102 MG/DL 03/02/2012 CHEM 14 6807501 BICARB 28 MMOL/L 03/02/2012 CHEM 14 7882751 ANION GAP 6 MEQ/L 03/02/2012 TSH 5987852 TSH 2.320 uIU/ML 03/02/2012 GFR CALC 6404657 GFR AA >60 ML/MIN 07/03/2011 GFR CALC 2347695 GFR NON-AA 54.0L ML/MIN 07/03/2011 CHEM 14 9414564 AST 15 U/L 07/03/2011 CHEM 14 5438553 ALT 30 IU/L 07/03/2011 CHEM 14 6452369 BUN 19 MG/DL 07/03/2011 CHEM 14 7510355 ALBUMIN 4.2 GM/DL 07/03/2011 CHEM 14 9127755 CHLORIDE 100 MMOL/L 07/03/2011 CHEM 14 8698881 BILI TOT 0.8 MG/DL 07/03/2011 CHEM 14 8160405 ALK PHOS 74 U/L 07/03/2011 CHEM 14 8093259 SODIUM 137 MMOL/L 07/03/2011 CHEM 14 3880705 CREATININE 1.03 MG/DL 07/03/2011 CHEM 14 9588521 CALCIUM 9.6 MG/DL 07/03/2011 CHEM 14 3378917 POTASSIUM 4.4 MMOL/L 07/03/2011 CHEM 14 5866192 PROT TOT 6.7 GM/DL 07/03/2011 CHEM 14 0663248 GLUCOSE 106 MG/DL 07/03/2011 CHEM 14 0497773 BICARB 28 MMOL/L 07/03/2011 CHEM 14 7467049 ANION GAP 9 MEQ/L 07/03/2011 URINALYSIS NONAUTO W/O SCOPE 39075 Specific [place] 1.010 DateTime(Free Text in Aprima) URINALYSIS NONAUTO W/O SCOPE 02814 PH 5 DateTime(Free Text in Aprima) URINALYSIS NONAUTO W/O SCOPE 01342 GLUCOSE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 [place] [facility] [place]. She reports that her insurance company has not returned her phone calls despite her leaving multiple messages. I have obtained the phone number from the pt and will call tomorrow. 06/04/2011 Appointment: Lacy Do WPtel: [address] [facility] Other 06/04/2011 Patient Education: Patient Medication Summary Completed 06/04/2011 Visit Plan: 1800 CALORIE RESTRICTION EXERCISE BAND - use for 10 min on upper body and 5 min on lower body. Bring in the diet log from this past. month Continue with ibuprofen for the knee pain. HTN - controlled - no change in medications. 05/05/2011 Appointment: Lacy Do WPtel: [address] [id number] Other 05/05/2011 Patient Education: Patient Medication [...] instructed. 04/07/2011 Appointment: Lacy Do WPtel: [address] [facility] Other 04/07/2011 Patient Education: Patient Medication [...] by Dr. Cueto. Also patient to have communications maintainer and psych consults in the next couple of months as well. Sinusitis - Pt has acute infection - pain in face, maxillary region, Pt informed to use decongestant, RX given to patient, sinus rinses also recommended. Call if symptoms do not show improvement. Kenalog injection today in the office. 03/17/2011 Appointment: Roberta Isaacs WPtel: [facility] [place] [address] Other 03/17/2011 Patient Education: Patient Medication Summary Completed 03/17/2011 Patient Education: .Gaylaing sanya Diet - Diabetic Completed 03/17/2011 Patient Education: .[employer] Payment Diabetic meal planning guide Completed 03/17 Visit [...] other concerns. 01/21/2011 Appointment: Roberta Isaacs WPtel: [address] [place], [place] [id number] Other 01/21/2011 Patient Education: Patient Medication Summary [...] tab daily. 11/24/2010 Appointment: Roberta Isaacs WPtel: [phone] Other 11/24/2010 Patient Education: Patient Medication Summary [...] verbalized understanding. 11/20/2010 Appointment: Roberta Isaacs WPtel: [phone] Other 11/20/2010 Patient Education: Patient Medication Summary Completed 11/20/2010 Visit Plan: Sinusitis - Pt has acute infection - pain in face, maxillary region, Pt informed to use decongestant, RX given to patient, sinus rinses also recommended. Call if symptoms do not show improvement. Samples of nasonex and jamie provided as well. 11/06/2010 Appointment: Roberta Isaacs WPtel: [phone] [phone] Other 11/06/2010 Patient Education: Patient Medication Summary [...] office or [place] [facility] [place] [facility] [place]. She [...] not improved, or if symptoms acutely worsen. . Culture urine Restart pradaxa as instructed [...] as had been initiall instructed. . Abdominal uorf-[id number] recent CT chest showed partially calcified aneurysm [...] being re-exposed to the environment of the [place] [facility]. SCHEDULE MAMMOGRAM (NOT THIS WEDNESDAY, NEXT WEDNESDAY [...] for fasting labs. Biaxin prescription sent to [facility]-it is twice daily x 10 [...] by Dr. Cueto. Also patient to have communications maintainer and psych consults in the next couple of months as well. Sinusitis - Pt has acute infection - pain in face, maxillary region, Pt informed to use decongestant, RX given to patient, sinus rinses also recommended. Call if symptoms do not show improvement. Kenalog injection today in the office. . Mcdfk-rkxasli-rgjd lasix 40mg daily x 3 days with potassium 20mEq BID x 3 days, then resume daily PRN schedule. If symptoms do not improve, we will obtain a chest xray. Recommend screening mammogram . PT GIVEN ROUTINE ALLERGY SHOTS FOR DESENSITIZATION . Kenalog injection
[2018-06-03] MEDS ORDERED: MIDAZOLAM 2 MG/2 ML (VERSED) VIAL ONE (07:22)
--- OUTSIDE RECORDS SUMMARY | 2018-06-03 07:24 | XMS REPORT | CCD ---
Author Author [facility] Address [address] [place] [address] Phone Care Team Providers [facility] Analyst Name Role Phone PP Unavailable CCM Unavailable Summary Purpose Interface Exchange Insurance Providers Payer name Policy type / Coverage type Covered constitution party ID Effective Begin Date Effective End Date WPS Medicare Part B Medicare Part B [id number] 2017 Unknown [employer] Medicare Part B [id number] Unknown Family history Father Diagnosis Age At Onset No Family Disease Entered N/A Runs in the family Diagnosis Age At Onset Diabetes Unknown Mother Diagnosis Age At Onset No Family Disease Entered N/A Social History Social History Element Codes Description Effective Dates Employment Unknown 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 03/17/2011 Active Obesity ICD-9: 278.00 [...] Start Date Stop Date Status Fill Instructions Kenalog 40 mg/mL suspension for injection RxNorm: 4043259 Milliliter(s) Inj 05/09/2018 05/09/2018 Inactive potassium chloride ER 10 mEq tablet,extended release RxNorm: 319153 1 Tablet(s) TAKE 1 CAPSULES BY MOUTH TWICE DAILY 05/02/2018 No Stop Date Active doxycycline hyclate 100 mg tablet RxNorm: 2919811 1 Tablet(s) PO BID 04/01/2018 03/31/2018 Inactive doxycycline hyclate 100 mg tablet RxNorm: 3874883 1 Tablet(s) PO BID 04/01/2018 04/10/2018 Inactive ketorolac 60 mg/2 mL intramuscular solution RxNorm: 2835714 Milliliter(s) IM 03/21/2018 03/21/2018 Inactive Voltaren 1 % topical gel RxNorm: 627919 4 Gram(s) TOP QID 03/1103/10/2018 Inactive Voltaren 1 % topical gel RxNorm: 298741 4 Gram(s) TOP QID 03/1104/09/2018 Inactive Xanax 0.25 mg tablet RxNorm: 826285 Tablet(s) PO TAKE ONE TABLET BY MOUTH EVERY 4 TO 6 HOURS NEEDED 03/09/20182018 Active potassium chloride ER 10 mEq tablet,extended release RxNorm: 826004 TAKE 2 CAPSULES BY MOUTH TWICE DAILY 02/28/2018 05/01/2018 Inactive Levaquin 500 mg tablet RxNorm: 401263 1 Tablet(s) PO daily 12/201701/31/2018 Inactive Macrobid 100 mg capsule RxNorm: 320880 1 Capsule(s) PO BID 01/06/2018 Inactive Macrobid 100 mg capsule RxNorm: 514148 1 Capsule(s) PO BID 12/30/2017 Inactive ondansetron 4 mg disintegrating tablet RxNorm: 645357 1 Tablet(s) PO Q4 PRN 10/22/2017 No Stop Date Active Xanax 0.25 mg tablet RxNorm: 912916 Tablet(s) PO TAKE ONE TABLET BY MOUTH EVERY 4 TO 6 HOURS NEEDED 07/29/20172017 Inactive Levaquin 500 mg tablet RxNorm: 091631 1 Tablet(s) PO daily 07/14/2017 Inactive Levaquin 500 mg tablet RxNorm: 300784 1 Tablet(s) PO daily 07/21/2017 Inactive Xarelto 20 mg tablet RxNorm: 1590118 1 Tablet(s) PO daily 06/2812/24/2017 Inactive Xarelto 20 mg tablet RxNorm: 3718354 1 Tablet(s) PO daily 06/2806/27/2017 Inactive potassium chloride ER 10 mEq tablet,extended release RxNorm: 421258 2 Capsule(s) PO BID 06/28/2017 12/24/2017 Inactive potassium chloride ER 10 mEq tablet,extended release RxNorm: 606844 2 Capsule(s) PO BID 06/28/2017 06/27/2017 Inactive prednisone 10 mg tablet RxNorm: 748871 Tablet(s) PO UD 201703/20/2018 Inactive 6,5,4,3,2,1 Vitamin D2 50,000 unit capsule RxNorm: 787258 1 Capsule(s) PO QW 04/26/2017 07/24/2017 Inactive Lexapro 10 mg tablet RxNorm: 758968 1 Tablet(s) PO QHS 201601/11/2017 Inactive Lexapro 10 mg tablet RxNorm: 490410 1 Tablet(s) PO QHS 201604/25/2017 Inactive famotidine 20 mg tablet RxNorm: 095492 1 Tablet(s) PO BID 01/0601/05/2017 Inactive famotidine 20 mg tablet RxNorm: 750540 1 Tablet(s) PO BID 01/0604/25/2017 Inactive doxazosin 2 mg tablet RxNorm: 964303 TAKE ONE-HALF TABLET BY MOUTH TWICE DAILY 12/17/2016 04/25/2017 Inactive Xanax 0.25 mg tablet RxNorm: 221771 Tablet(s) PO TAKE ONE TABLET BY MOUTH EVERY 4 TO 6 HOURS NEEDED 11/12/20162016 Inactive Xanax 0.25 mg tablet RxNorm: 082048 Tablet(s) PO TAKE ONE TABLET BY MOUTH EVERY 4 TO 6 HOURS NEEDED 11/12/20162016 Inactive Levaquin 500 mg tablet RxNorm: 881693 1 Tablet(s) PO daily 10/28/2016 Inactive Levaquin 500 mg tablet RxNorm: 594341 1 Tablet(s) PO daily 11/04/2016 Inactive Pyridium 200 mg tablet RxNorm: 6670764 1 Tablet(s) PO TID PRN 10/29/2016 04/25/2017 Inactive potassium chloride ER 10 mEq tablet,extended release RxNorm: 847471 2 Capsule(s) PO BID 10/20/2016 02/16/2017 Inactive potassium chloride ER 10 mEq tablet,extended release RxNorm: 381654 2 Capsule(s) PO BID 10/16/2016 10/19/2016 Inactive potassium chloride ER 10 mEq tablet,extended release RxNorm: 882652 1 Capsule(s) PO daily 10/15/2016 10/15/2016 Inactive potassium chloride 40 mEq/15 mL oral liquid RxNorm: 231707 7.5 Milliliter(s) PO BID 10/05/2016 10/11/2016 Inactive potassium chloride 40 mEq/15 mL oral liquid RxNorm: 115349 7.5 Milliliter(s) PO BID 10/05/2016 10/04/2016 Inactive potassium chloride 40 mEq/15 mL oral liquid RxNorm: 053703 7.5 Milliliter(s) PO BID 10/05/2016 10/04/2016 Inactive doxycycline hyclate 100 mg tablet RxNorm: 675300 1 Tablet(s) PO BID 09/30/2016 10/09/2016 Inactive Vitamin D2 50,000 unit capsule RxNorm: 341357 1 Capsule(s) PO QW 09/15/2016 09/14/2016 Inactive Vitamin D2 50,000 unit capsule RxNorm: 142909 1 Capsule(s) PO QW 09/15/2016 12/13/2016 Inactive doxycycline hyclate 100 mg tablet RxNorm: 705714 1 Tablet(s) PO BID 08/11/2016 08/24/2016 Inactive doxycycline hyclate 100 mg tablet RxNorm: 289369 1 Tablet(s) PO BID 07/24/2016 07/28/2016 Inactive mupirocin 2 % topical ointment RxNorm: 726758 1 Application TOP BID 07/24/2016 07/23/2016 Inactive mupirocin 2 % topical ointment RxNorm: 231576 1 Application TOP BID 07/24/2016 07/30/2016 Inactive doxycycline hyclate 100 mg tablet RxNorm: 779495 1 Tablet(s) PO BID 07/24/2016 07/23/2016 Inactive potassium chloride ER 10 mEq tablet,extended release RxNorm: 680806 2 Tablet(s) PO BID 07/20/2016 10/04/2016 Inactive Lasix 20 mg tablet RxNorm: 147140 1 Tablet(s) PO PRN 2016 No Stop Date Active PRN for swelling Xanax 0.25 mg tablet RxNorm: 997344 Tablet(s) PO TAKE ONE TABLET BY MOUTH EVERY 4 TO 6 HOURS NEEDED 06/19/20162016 Inactive prednisone 20 mg tablet RxNorm: 183820 1 Tablet(s) PO BID 06/0306/07/2016 Inactive potassium chloride ER 10 mEq tablet,extended release RxNorm: 165625 2 Tablet(s) PO BID 05/06/2016 05/05/2016 Inactive potassium chloride ER 10 mEq tablet,extended release RxNorm: 775137 2 Tablet(s) PO BID 05/06/2016 06/04/2016 Inactive Levaquin 500 mg tablet RxNorm: 316864 1 Tablet(s) PO daily 03/30/2016 Inactive Levaquin 500 mg tablet RxNorm: 885672 1 Tablet(s) PO daily 04/06/2016 Inactive prednisone 20 mg tablet RxNorm: 649433 1 Tablet(s) PO BID 02/2402/29/2016 Inactive prednisone 20 mg tablet RxNorm: 989999 1 Tablet(s) PO BID 02/2402/24/2016 Inactive Flonase 50 mcg/actuation nasal spray,suspension RxNorm: 2016105 2 [place] NASAL daily 02/18/2016 02/27/2016 Inactive doxycycline hyclate 100 mg tablet RxNorm: 043198 1 Tablet(s) PO BID 02/18/2016 02/27/2016 Inactive doxycycline hyclate 100 mg tablet RxNorm: 516397 1 Tablet(s) PO BID 02/18/2016 02/17/2016 Inactive cyclobenzaprine 5 mg tablet RxNorm: 948757 1-2 Tablet(s) PO TID as needed 02/12/2016 02/21/2016 Inactive cyclobenzaprine 5 mg tablet RxNorm: 391431 1-2 Tablet(s) PO TID as needed 02/12/2016 02/11/2016 Inactive Xanax 0.25 mg tablet RxNorm: 006446 Tablet(s) PO TAKE ONE TABLET BY MOUTH EVERY 4 TO 6 HOURS NEEDED 01/20/20162016 Inactive (Appended: Controlled substance eRx refill - RxReferenceNumber: [id number]) metoprolol tartrate 25 mg tablet RxNorm: 923321 1/2 Tablet(s) PO BID 12/13/2015 04/10/2016 Inactive doxazosin 2 mg tablet RxNorm: 122444 1 Tablet(s) PO QHS 201512/16/2016 Inactive metoprolol tartrate 25 mg tablet RxNorm: 582267 1/2 Tablet(s) PO BID 12/09/2015 12/12/2015 Inactive Vitamin D2 50,000 unit capsule RxNorm: 889126 1 Capsule(s) PO QW 12/09/2015 02/06/2016 Inactive Lasix 20 mg tablet RxNorm: 958126 1 Tablet(s) PO PRN 201507/05/2016 Inactive PRN for swelling potassium chloride ER 20 mEq tablet,extended release RxNorm: 718912 1 Tablet(s) PO daily as needed When taking lasix 10/03/2015 04/26/2016 Inactive cyanocobalamin (vit B-12) 1,000 mcg/mL injection solution RxNorm: 271687 Milliliter(s) Inj 09/13/2015 09/13/2015 Inactive doxycycline hyclate 100 mg tablet RxNorm: 763495 1 Tablet(s) PO BID 09/12/2015 09/18/2015 Inactive potassium chloride ER 10 mEq tablet,extended release RxNorm: 005622 1 Tablet(s) PO daily as needed When taking lasix 09/04/2015 10/02/2015 Inactive Lasix 20 mg tablet RxNorm: 125173 1 Tablet(s) PO PRN 201510/02/2015 Inactive PRN for swelling doxycycline hyclate 100 mg tablet RxNorm: 790785 1 Tablet(s) PO BID 08/26/2015 08/25/2015 Inactive doxycycline hyclate 100 mg tablet RxNorm: 010291 1 Tablet(s) PO BID 08/26/2015 09/01/2015 Inactive mupirocin 2 % topical ointment RxNorm: 143196 1 Application TOP BID 08/02/2015 08/01/2015 Inactive mupirocin 2 % topical ointment RxNorm: 151125 1 Application TOP BID 08/02/2015 08/08/2015 Inactive metoprolol tartrate 50 mg tablet RxNorm: 875288 2 tabs in morning and 1 tablet at night dose PO as directed 06/13/201510/23 Inactive 2 tabs in the morning, and 1 in the evening Benicar 40 mg tablet RxNorm: 455857 1 Tablet(s) PO daily 201510/21/2015 Inactive Benicar 40 mg tablet RxNorm: 318665 1 Tablet(s) PO daily 201506/12/2015 Inactive Vitamin D2 50,000 unit capsule RxNorm: 060627 1 Capsule(s) PO QW 06/11/2015 12/07/2015 Inactive Xanax 0.25 mg tablet RxNorm: 676864 Tablet(s) PO TAKE ONE TABLET BY MOUTH EVERY 4 TO 6 HOURS NEEDED 06/06/20152015 Inactive (Appended: Controlled substance eRx refill - RxReferenceNumber: [id number]) Levaquin 500 mg tablet RxNorm: 336967 1 Tablet(s) PO daily 11/201510/28/2015 Inactive Kenalog 40 mg/mL suspension for injection RxNorm: 7933332 Milliliter(s) Inj 03/27/2015 03/27/2015 Inactive Kenalog 40 mg/mL suspension for injection RxNorm: 6649144 Milliliter(s) Inj 12/11/2014 12/11/2014 Inactive Vitamin D2 50,000 unit capsule RxNorm: 208457 1 Capsule(s) PO QW 12/05/2014 06/02/2015 Inactive [SAVINGS FOR NON-COVERED DRUGS -- BIN:470770, PCN: ASPROD1, Group: XXXXX, ID# [id number], Questions: . THIS IS NOT INSURANCE.] Pradaxa 150 mg capsule RxNorm: 1031307 Capsule(s) PO BID 201409/08/2015 Inactive TAKE 1 CAPSULE BY MOUTH TWICE DAILY Vitamin D2 50,000 unit capsule RxNorm: 813551 1 Capsule(s) PO QW 12/04/2014 12/04/2014 Inactive [SAVINGS FOR NON-COVERED DRUGS -- BIN:100488, PCN: ASPROD1, Group: XXXXX, ID# [id number], Questions: . THIS IS NOT INSURANCE.] Lasix 20 mg tablet RxNorm: 302874 1 Tablet(s) PO PRN 201411/25/2014 Inactive PRN for swelling Levaquin 500 mg tablet RxNorm: 275563 1 Tablet(s) PO daily 01/201511/25/2014 Inactive Levaquin 500 mg tablet RxNorm: 537641 1 Tablet(s) PO daily 01/201512/02/2014 Inactive Lasix 20 mg tablet RxNorm: 789915 1 Tablet(s) PO PRN 201409/03/2015 Inactive PRN for swelling nitrofurantoin 100 mg capsule RxNorm: 114341 1 Capsule(s) PO BID 11/12/2014 11/17/2014 Inactive Macrobid 100 mg capsule RxNorm: 600019 1 Capsule(s) PO BID 11/18/2014 Inactive Macrobid 100 mg capsule RxNorm: 724375 1 Capsule(s) PO BID 11/11/2014 Inactive Levaquin 500 mg tablet RxNorm: 045337 1 Tablet(s) PO daily 11/11/2014 Inactive metoprolol tartrate 50 mg tablet RxNorm: 785783 2 tabs in morning and 1 tablet at night dose PO as directed 10/25/201405/21 Inactive 2 tabs in the morning, and 1 in the evening Xanax 0.25 mg tablet RxNorm: 401001 Tablet(s) PO TAKE ONE TABLET BY MOUTH EVERY 4 TO 6 HOURS NEEDED 08/30/20142014 Inactive (Appended: Controlled substance eRx refill - RxReferenceNumber: [id number]) Levaquin 500 mg tablet RxNorm: 702524 1 Tablet(s) PO daily 07/31/2014 Inactive Levaquin 500 mg tablet RxNorm: 398566 1 Tablet(s) PO daily 08/07/2014 Inactive Vitamin D2 50,000 unit capsule RxNorm: 468414 1 Capsule(s) PO QW 05/16/2014 2014 Inactive [SAVINGS FOR NON-COVERED DRUGS -- BIN:959026, PCN: ASPROD1, Group: XXXXX, ID# [id number], Questions: . THIS IS NOT INSURANCE.] Zithromax 500 mg tablet RxNorm: 744353 1 Tablet(s) PO daily 05/10/2014 Inactive Zithromax 500 mg tablet RxNorm: 665760 1 Tablet(s) PO daily 05/15/2014 Inactive [SAVINGS FOR NON-COVERED DRUGS -- BIN:801430, PCN: ASPROD1, Group: XXXXX, ID# [id number], Questions: . THIS IS NOT INSURANCE.] prednisone 20 mg tablet RxNorm: 809280 Tablet(s) PO 3daily x 2days, then 2daily x2days, then 1daily x2days, then 1/2 daily x 2days then stop 03/13/2014 2014 Inactive [SAVINGS FOR UNINSURED PATIENTS -- BIN:582556, PCN: ASPROD1, Group: [id number], ID# [id number], Process claim through [employer], for questions: [phone]. THIS IS NOT INSURANCE.] Levaquin 500 mg tablet RxNorm: 430308 1 Tablet(s) PO daily TAKE ONE TABLET BY MOUTH ONCE DAILY take with benadryl 03/13/2014 03/22/2014 Inactive [SAVINGS FOR UNINSURED PATIENTS -- BIN:406961, PCN: ASPROD1, Group: [id number], ID# [id number], Process claim through [employer], for questions: . 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 THIS IS NOT INSURANCE.] Xanax 0.25 mg tablet RxNorm: 171796 Tablet(s) PO TAKE ONE TABLET BY MOUTH EVERY 4 TO 6 HOURS NEEDED 02/05/20142013 Inactive (Appended: Controlled substance eRx refill - RxReferenceNumber: [id number]) prednisone 20 mg tablet RxNorm: 822389 2 Tablet(s) PO QAM 01/0601/10/2014 Inactive call pt when ready for machine operator hop picker today 01/06/14 Levaquin 500 mg tablet RxNorm: 345573 1 Tablet(s) PO daily TAKE ONE TABLET BY MOUTH ONCE DAILY take with benadryl 01/06/2014 01/12/2014 Inactive pt to machine operator hop picker today 01/06/14 prednisone 20 mg tablet RxNorm: 011733 Tablet(s) PO 3daily x 2days, then 2daily x2days, then 1daily x2days, then 1/2 daily x 2days then stop 12/13/2013 03/12/2014 Inactive Levaquin 500 mg tablet RxNorm: 564998 1 Tablet(s) PO daily TAKE ONE TABLET BY MOUTH ONCE DAILY take with benadryl 12/13/2013 12/19/2013 Inactive Vitamin D2 50,000 unit capsule RxNorm: 822571 1 Capsule(s) PO QW 12/12/2013 03/11/2014 Inactive weekly x 12 weeks Vitamin D2 50,000 unit capsule RxNorm: 216917 1 Capsule(s) PO QW 12/12/2013 12/11/2013 Inactive metoprolol tartrate 50 mg tablet RxNorm: 079087 2 tabs in morning and 1 tablet at night dose PO as directed 11/03/201305/31 Inactive 2 tabs in the morning, and 1 in the evening Bactroban 2 % topical ointment RxNorm: 754510 1 Application TOP BID 10/30/2013 11/08/2013 Inactive Bactroban 2 % topical ointment RxNorm: 700598 1 Application TOP BID 10/30/2013 10/29/2013 Inactive Lasix 40 mg tablet RxNorm: 895061 1 Tablet(s) PO daily as needed 10/23/2013 2014 Inactive metoprolol tartrate 50 mg tablet RxNorm: 170901 1 Tablet(s) PO BID 08/28/2013 09/26/2013 Inactive 2 tabs in the morning, and 1 in the evening metoprolol tartrate 50 mg tablet RxNorm: 581134 1 Tablet(s) PO BID 08/28/2013 08/27/2013 Inactive 2 tabs in the morning, and 1 in the evening Lasix 40 mg tablet RxNorm: 562877 1 Tablet(s) PO daily 201310/22/2013 Inactive Lasix 40 mg tablet RxNorm: 397536 1 Tablet(s) PO daily 201308/07/2013 Inactive potassium chloride ER 10 mEq tablet,extended release RxNorm: 221171 1 Tablet(s) PO BID 07/14/2013 2014 Inactive Lipitor 20 mg tablet RxNorm: 100612 1 Tablet(s) PO daily 201307/08/2014 Inactive generic ok Xanax 0.25 mg tablet RxNorm: 748435 Tablet(s) PO TAKE 1 TABLET BY MOUTH EVERY 4 TO 6 HOURS NEEDED 07/14/20132013 Inactive (Appended: Controlled substance eRx refill - RxReferenceNumber: [id number]|1|0|1) Xanax 0.25 mg tablet RxNorm: 880205 Tablet(s) PO TAKE ONE TABLET BY MOUTH EVERY 4 TO 6 HOURS NEEDED 07/14/20132013 Inactive (Appended: Controlled substance eRx refill - RxReferenceNumber: [id number]) metoprolol succinate ER 50 mg tablet,extended release 24 hr RxNorm: 437905 100mg q am 50 in even Tablet(s) PO 07/14/2013 Inactive Levaquin 500 mg tablet RxNorm: 050205 Tablet(s) PO TAKE ONE TABLET BY MOUTH ONCE DAILY 07/13/2013 12/12/2013 Inactive Levaquin 500 mg tablet RxNorm: 480292 Tablet(s) PO TAKE ONE TABLET BY MOUTH ONCE DAILY 07/13/2013 10/22/2013 Inactive Levaquin 500 mg tablet RxNorm: 471640 1 Tablet(s) PO daily 02/201305/22/2013 Inactive Levaquin 500 mg tablet RxNorm: 026138 1 Tablet(s) PO daily 05/15/2013 Inactive Lipitor 20 mg tablet RxNorm: 111643 1 Tablet(s) PO daily 201307/13/2013 Inactive generic ok Kenalog 40 mg/mL suspension for injection RxNorm: 8065400 1 Milliliter(s) Inj 04/14/2013 04/14/2013 Inactive Lipitor 20 mg tablet RxNorm: 626406 1 Tablet(s) PO daily 201304/16/2013 Inactive Lipitor 20 mg tablet RxNorm: 184876 1 Tablet(s) PO daily 201304/13/2013 Inactive metoprolol succinate ER 50 mg tablet,extended release 24 hr RxNorm: 504469 100mg q am 50 in even Tablet(s) PO 04/14/2013 Inactive Levaquin 500 mg tablet RxNorm: 472570 1 Tablet(s) PO daily 04/20/2013 Inactive Carafate 1 gram tablet RxNorm: 132621 1 Tablet(s) PO QID 201303/30/2013 Inactive Carafate 1 gram tablet RxNorm: 634792 1 Tablet(s) PO QID 201304/23/2013 Inactive Zithromax Z-Preston 250 mg tablet RxNorm: 273273 Tablet(s) PO zpack as directed 01/31/2013 04/12/2013 Inactive Zofran 4 mg tablet RxNorm: 544057 1 Tablet(s) PO Q6 PRN 12/0704/12/2013 Inactive Xanax 0.25 mg tablet RxNorm: 841069 Tablet(s) PO TAKE 1 TABLET BY MOUTH EVERY 4 TO 6 HOURS NEEDED 06/20/20122013 Inactive (Appended: Controlled substance eRx refill - RxReferenceNumber: [id number]|1|0|1) Xanax 0.25 mg tablet RxNorm: 296556 1 Tablet(s) PO Q4-6H q 4-6 hrs prn 06/20/2012 No Stop Date Active doxycycline monohydrate 100 mg tablet RxNorm: 8890595 1 Tablet(s) PO BID 05/17/2012 05/26/2012 Inactive doxycycline monohydrate 100 mg tablet RxNorm: 1585097 1 Tablet(s) PO BID 04/11/2012 04/20/2012 Inactive Kenalog 40 mg/mL Susp for Injection RxNorm: 4334585 1 Milliliter(s) Inj 04/11/2012 04/11/2012 Inactive metoprolol succinate ER 50 mg tablet,extended release 24 hr RxNorm: 716550 Tablet (s) PO TAKE 1 & 1/2 TABLETS BY MOUTH TWICE DAILY 02/01/2012 04/13/2013 Inactive Lipitor 40 mg tablet RxNorm: 268213 Tablet(s) PO TAKE 1 TABLET BY MOUTH EVERY DAY 02/01/2012 04/12/2013 Inactive Pradaxa 150 mg capsule RxNorm: 8848018 Capsule(s) PO 201112/03/2014 Inactive TAKE 1 CAPSULE BY MOUTH TWICE DAILY Xanax 0.25 mg tablet RxNorm: 576752 1 Tablet(s) PO Q4-6H q 4-6 hrs prn 12/28/2011 06/20/2012 Inactive metoprolol succinate ER 50 mg tablet,extended release 24 hr RxNorm: 354417 Tablet (s) PO 12/28/2011 01/31/2012 Inactive TAKE 1 & 1/2 TABLETS BY MOUTH TWICE DAILY Singulair 10 mg tablet RxNorm: 270659 Tablet(s) PO 12/28/2011 04/13/2013 Inactive TAKE ONE TABLET BY MOUTH DAILY clindamycin 150 mg capsule RxNorm: 692800 1 Capsule(s) PO QID 11/25/2011 12/01/2011 Inactive Influenza Virus Vaccine 0.5 mL RxNorm: IM 11/11/2011 11/11/2011 Inactive Pneumovax 23 25 mcg/0.5 mL Injection RxNorm: 560941 Milliliter(s) Inj 11/11/2011 11/11/2011 Inactive Biaxin 500 mg tablet RxNorm: 955829 1 Tablet(s) PO BID 201110/30/2011 Inactive Flagyl 500 mg tablet RxNorm: 405833 1 Tablet(s) PO TID 201109/03/2011 Inactive Flagyl 500 mg tablet RxNorm: 191786 1 Tablet(s) PO TID 201109/10/2011 Inactive doxycycline hyclate 100 mg tablet RxNorm: 8319274 1 Tablet(s) PO BID 09/04/2011 09/10/2011 Inactive doxycycline hyclate 100 mg tablet RxNorm: 2473939 1 Tablet(s) PO BID 09/04/2011 09/03/2011 Inactive Xopenex 1.25 mg/3 mL Neb Solution RxNorm: 263253 1 Unit(s) INH Q4 PRN 08/18/2011 12/15/2011 Inactive 1 box Xopenex 1.25 mg/3 mL Neb Solution RxNorm: 986660 1 Milliliter(s) INH Q4 PRN 08/18/2011 08/17/2011 Inactive 1 box Zithromax Z-Preston 250 mg Tab RxNorm: 013252 Tablet(s) PO UD 08/1008/11/2011 Inactive doxycycline hyclate 100 mg Tab RxNorm: 6592154 1 Tablet(s) PO BID 08/11/2011 08/11/2011 Inactive prednisone 10 mg Tab RxNorm: 243320 1 Tablet(s) PO BID q a.m. and q NOON x 5 days 08/11/2011 08/10/2011 Inactive prednisone 10 mg Tab RxNorm: 911661 1 Tablet(s) PO BID q a.m. and q NOON x 5 days 08/11/2011 08/15/2011 Inactive Kenalog 40 mg/mL Susp for Injection RxNorm: 9077032 1 Milliliter(s) Inj 08/11/2011 08/11/2011 Inactive doxycycline hyclate 100 mg Tab RxNorm: 3312709 1 Tablet(s) PO BID 08/11/2011 08/10/2011 Inactive nystatin 100,000 unit/mL Oral Susp RxNorm: 413506 6 Milliliter(s) PO QID 08/10/2011 08/16/2011 Inactive Jamie 60 mg Tab RxNorm: 180811 1 Tablet(s) PO daily 201101/23/2012 Inactive Jamie 60 mg Tab RxNorm: 466852 1 Tablet(s) PO daily 201107/27/2011 Inactive potassium chloride ER 10 mEq tablet,extended release RxNorm: 227649 1 Tablet(s) PO BID 07/27/2011 08/19/2012 Inactive Synthroid 75 mcg Tab RxNorm: 321010 Tablet(s) PO 07/06/2011 07/29/2012 Inactive one tab elliot wed friday1/2 tab other days potassium chloride ER 10 mEq Tab RxNorm: 070550 1 Tablet(s) PO BID 07/02/2011 07/26/2011 Inactive Lasix 40 mg tablet RxNorm: 510740 1 Tablet(s) PO daily 201112/28/2011 Inactive Nexium 40 mg Capsule, delayed release RxNorm: 819589 1 Capsule(s) PO daily 06/25/2011 11/24/2011 Inactive Lexapro 10 mg Tab RxNorm: 739036 1 Tablet(s) PO daily 201107/14/2011 Inactive Carafate 100 mg/mL Oral Susp RxNorm: 388348 10 Milliliter(s) PO QID 06/25/2011 10/20/2011 Inactive dispense qs x 1 month nystatin 100,000 unit/mL Oral Susp RxNorm: 140417 3 Milliliter(s) PO QID swish, gargle, then swallow four times daily. 06/25/2011 07/14/2011 Inactive dispense qs x 10 days. Mucinex 1,200 mg 12 hr Tab RxNorm: 619198 1 Tablet(s) PO BID 07/21/2011 Inactive Lipitor 40 mg tablet RxNorm: 271030 1 Tablet(s) PO daily 201112/18/2011 Inactive lactobacillus acidophilus Cap RxNorm: 2 Capsule(s) PO BID 08/201107/14/2011 Inactive Mucinex 1,200 mg 12 hr Tab RxNorm: 609379 1 Tablet(s) PO BID 06/21/2011 Inactive lactobacillus acidophilus Cap RxNorm: 1 Capsule(s) PO BID 06/21/2011 Inactive Kenalog 40 mg/mL Susp for Injection RxNorm: 9570256 1 Milliliter(s) Inj 06/15/2011 06/15/2011 Inactive Flagyl 500 mg Tab RxNorm: 097782 1 Tablet(s) PO TID 201107/14/2011 Inactive doxycycline hyclate 100 mg Cap RxNorm: 1900647 1 Capsule(s) PO BID 06/15/2011 07/14/2011 Inactive clarithromycin 250 mg Tab RxNorm: 239164 1 Tablet(s) PO BID 07/14/2011 Inactive Xanax 0.25 mg tablet RxNorm: 607829 1 Tablet(s) PO Q4-6H q 4-6 hrs prn 05/27/2011 07/16/2011 Inactive Lasix 40 mg Tab RxNorm : 558027 3 Tablet(s) PO as directed 2 q am and 1 q noon 05/27/2011 07/01/2011 Inactive potassium chloride ER 10 mEq Tab RxNorm: 148022 1 Tablet(s) PO BID 05/27/2011 05/26/2011 Inactive KCL 10 meq RxNorm: 1 PO BID 05/27/201112/2011 Inactive potassium chloride ER 10 mEq Tab RxNorm: 561292 1 Tablet(s) PO BID 05/27/2011 06/25/2011 Inactive Pradaxa 75 mg Cap RxNorm: 1475082 2 Capsule(s) PO daily 09/29/2011 Inactive Biaxin 500 mg Tab RxNorm: 851384 1 Tablet(s) PO BID 201103/16/2011 Inactive Biaxin 500 mg Tab RxNorm: 796125 1 Tablet(s) PO BID 201107/14/2011 Inactive azithromycin 250 mg Tab RxNorm: 780428 1 Tablet(s) PO daily two by mouth daily x 3 days, then daily thereafter 02/06/2011 07/14/2011 Inactive two by mouth daily x 3 days, then daily thereafter until supply is exhausted azithromycin 250 mg Tab RxNorm: 590717 1 Tablet(s) PO daily two by mouth daily x 3 days, then daily thereafter 02/06/2011 02/05/2011 Inactive two by mouth daily x 3 days, then daily thereafter until supply is exhausted azithromycin 250 mg Tab RxNorm: 285759 1 Tablet(s) PO daily two by mouth daily x 3 days, then daily thereafter 02/06/2011 02/05/2011 Inactive two by mouth daily x 3 days, then daily thereafter until supply is exhausted Valturna 300 mg-320 mg Tab RxNorm: 2444281 Tablet(s) PO 201007/14/2011 Inactive TAKE 1 TABLET BY MOUTH EVERY DAY Kenalog 40 mg/mL Susp for Injection RxNorm: 0286933 2 Milliliter(s) Inj 11/20/2010 11/20/2010 Inactive Avelox 400 mg Tab RxNorm: 417424 1 Tablet(s) PO daily 201007/14/2011 Inactive Biaxin 500 mg Tab RxNorm: 985589 1 Tablet(s) PO BID 201011/15/2010 Inactive Pradaxa 150 mg Cap RxNorm: 2840057 1 Capsule(s) PO BID 201007/14/2011 Inactive Zyrtec oral RxNorm: 92994 oral No Start Date Active doxazosin 2 mg tablet RxNorm: 418039 1/2 Tablet(s) PO BID No Start Date 12/08/2015 Inactive Pyridium 200 mg tablet RxNorm: 7260750 1 Tablet(s) PO TID PRN No Start Date 10/28/2016 Inactive ondansetron 4 mg disintegrating tablet RxNorm: 247109 1 Tablet(s) PO Q4 PRN No Start Date 10/21/2017 Inactive Pradaxa 75 mg Cap RxNorm: 0303673 1 Capsule(s) PO daily No Start Date 05/04/2011 Inactive Singulair 10 mg tablet RxNorm: 937958 1 Tablet(s) PO daily No Start Date 07/14/2011 Inactive hydrocodone-acetaminophen 5 mg-325 mg tablet RxNorm: 951447 1 Tablet(s) PO Q6 PRN No Start Date 04/12/2013 Inactive Toprol XL 100 mg 24 hr Tab RxNorm: 952817 1 Tablet(s) PO BID No Start Date 07/14/2011 Inactive Zofran 4 mg tablet RxNorm: 275764 1 Tablet(s) PO Q6 PRN No Start Date 12/06/2012 Inactive Vitamin D2 50,000 unit capsule RxNorm: 523238 1 Capsule(s) PO QW No Start Date 05/15/2014 Inactive prednisone 10 mg tablet RxNorm: 479401 Tablet(s) PO UD No Start Date 06/15/2017 Inactive 6,5,4,3,2,1 Lipitor 40 mg Tab RxNorm: 086790 1 Tablet(s) PO daily No Start Date 06/21/2011 Inactive Trilipix 135 mg Cap RxNorm: 644557 Capsule(s) PO No Start Date 11/26/2010 Inactive Eliquis 5 mg tablet RxNorm: 0391295 1 Tablet(s) PO BID No Start Date 12/08/2015 Inactive KCL 10 meq RxNorm: 1 PO BID No Start Date 05/26/2011 Inactive Diovan 80 mg Tab RxNorm: 055157 1 Tablet(s) PO QHS No Start Date 07/14/2011 Inactive Lipitor 20 mg tablet RxNorm: 861140 1 Tablet(s) PO daily No Start Date 04/13/2013 Inactive Zithromax Z-Preston 250 mg tablet RxNorm: 605476 Tablet(s) PO No Start Date 01/30/2013 Inactive aspirin 81 mg Tab, Delayed Release RxNorm: 422490 1 Tablet(s) PO daily No Start Date 07/14/2011 Inactive prednisone 20 mg Tab RxNorm: 706594 Tablet(s) PO UD 3 tabs x 1 day, then 2 tabs daily x 2 days then 1 tab daily x 1 days, 1/2 daily x 1 day then 1/2 QOD x 2 doses then stop No Start Date 07/14/2011 Inactive Flonase 50 mcg/actuation Nasal [place] RxNorm: 2769901 2 [place] NASAL daily No Start Date 02/17/2016 Inactive hydrocodone 2.5 mg-guaifenesin 200 mg/5 mL syrup RxNorm: 247435 10 Unit Dose PO Q6 PRN No Start Date 04/25/2017 Inactive potassium chloride ER 10 mEq tablet,extended release RxNorm: 576394 1 Tablet(s) PO daily No Start Date 10/14/2016 Inactive Diovan 160 mg Tab RxNorm: 492662 1 Tablet(s) PO QHS No Start Date 12/20/2011 Inactive Lasix 40 mg Tab RxNorm : 669935 3 Tablet(s) PO as directed 2 q am and 1 q noon No Start Date 05/26/2011 Inactive metoprolol succinate ER 50 mg tablet,extended release 24 hr RxNorm: 339850 1 1 / 2 Tablet(s) PO BID No Start Date 2011 Inactive Carafate 1 gram Tab RxNorm: 920358 1 Tablet(s) PO TID No Start Date 07/14/2011 Inactive doxycycline hyclate 100 mg tablet RxNorm: 428505 1 Tablet(s) PO BID No Start Date 08/10/2016 Inactive Zithromax Z-Preston 250 mg Tab RxNorm: 843015 Oral No Start Date 08/10/2011 Inactive prednisone 20 mg Tab RxNorm: 388211 Tablet(s) PO No Start Date 04/06/2011 Inactive 3 tabs x 2 days, 2 tabs x 2 days, 1 tab x 2 days, 1/2 daily x 4 days then stop Bentyl 10 mg Cap RxNorm: 249904 1 Capsule(s) PO BID No Start Date 07/14/2011 Inactive Xarelto 15 mg tablet RxNorm: 1264522 1 Tablet(s) PO daily No Start Date 06/27/2017 Inactive Valturna 300 mg-320 mg Tab RxNorm: 3406950 1 Tablet(s) PO daily No Start Date 01/19/2011 Inactive Vitamin D 1,000 unit Tab RxNorm: 074760 1 Tablet(s) PO daily No Start Date 07/14/2011 Inactive Lexapro 10 mg Tab RxNorm: 844612 1 Tablet(s) PO daily No Start Date 04/06/2011 Inactive Synthroid 75 mcg Tab RxNorm: 883999 Tablet(s) PO No Start Date 07/05/2011 Inactive Protonix 40 mg Tab RxNorm: 337944 1 Tablet(s) PO daily No Start Date 07/14/2011 Inactive ranitidine 150 mg tablet RxNorm: 181452 1 Tablet(s) PO BID No Start Date 04/25/2017 Inactive prednisone 20 mg tablet RxNorm: 285434 Tablet(s) PO 3daily x 2days, then 2daily x2days, then 1daily x2days, then 1/2 daily x 2days then stop No Start Date 12/12/2013 Inactive Nexium 40 mg Cap RxNorm: 922338 1 Capsule(s) PO daily No Start Date 06/03/2011 Inactive Xanax 0.25 mg Tab RxNorm: 532492 1 Tablet(s) PO Q4-6H q 4-6 hrs prn No Start Date 04/06/2011 Inactive Synthroid 50 mcg Tab RxNorm: 554392 1 Tablet(s) PO daily No Start Date 07/14/2011 Inactive Pradaxa 150 mg capsule RxNorm: 8028633 1 Capsule(s) PO BID No Start Date 12/30/2011 Inactive metoprolol tartrate 25 mg tablet RxNorm: 096214 1 Tablet(s) PO TID No Start Date 12/08/2015 Inactive Singulair 5 mg Chewable Tab RxNorm: 095749 1 Tablet(s) PO every other day No Start Date 04/13/2013 Inactive Pepcid oral RxNorm: 4278 oral No Start Date 05/01/2018 Inactive Medication Administered Medication Codes Instructions Start Date Status Kenalog 40 mg/mL suspension for injection RxNorm: 6226400 Milliliter 05/09/2018 Active ketorolac 60 mg/2 mL intramuscular solution RxNorm: 0853906 Milliliter 03/21/2018 No longer Active cyanocobalamin (vit B-12) 1,000 mcg/mL injection solution RxNorm: 921569 Milliliter 09/13/2015 No longer Active Kenalog 40 mg/mL suspension for injection RxNorm: 8752737 Milliliter 03/27/2015 No longer Active Kenalog 40 mg/mL suspension for injection RxNorm: 8952021 Milliliter 12/11/2014 No longer Active Kenalog 40 mg/mL suspension for injection RxNorm: 1645516 1Milliliter 04/14/2013 No longer Active Kenalog 40 mg/mL Susp for Injection RxNorm: 4830712 1Milliliter 04/11/2012 No longer Active Influenza Virus Vaccine 0.5 mL RxNorm: 11/11/2011 No longer Active Pneumovax 23 25 mcg/0.5 mL Injection RxNorm: 934749 Milliliter 11/11/2011 No longer Active Kenalog 40 mg/mL Susp for Injection RxNorm: 8136529 1Milliliter 08/11/2011 No longer Active Kenalog 40 mg/mL Susp for Injection RxNorm: 7214552 1Milliliter 06/15/2011 No longer Active Kenalog 40 mg/mL Susp for Injection RxNorm: 2486875 2Milliliter 11/20/2010 No longer Active Immunizations Vaccine [...] medications ICD-9: V58.69 04/12/2013 ESSENTIAL HYPERTENSION SNOMED: [id number] ICD-9: 401.9 04/12/2013 ATRIAL FIBRILLATION ICD-9: 427.31 [...] Knee pain, acute ICD-9: 719.46 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 Encounter for general adult medical [...] Item Item Code Result Date Comp Metabolic Psf364 NA 139 mEq/L 04/26/2018 Comp Metabolic Txj809 K 4.2 mEq/L 04/26/2018 Comp Metabolic Hql326 CL 103 mEq/L 04/26/2018 Comp Metabolic Kbm755 CO2 30.0 mEq/L 04/26/2018 Comp Metabolic Ofj917 ANION GAP 10 04/26/2018 Comp Metabolic Aoo572 GLUCOSE 105 mg/dL 04/26/2018 Comp Metabolic Nxl627 Creat 1.0 mg/dL 04/26/2018 Comp Metabolic Inq844 eGFR 62 ml/min/1.73m2 04/26/2018 Comp Metabolic Ros628 BUN 13 mg/dL 04/26/2018 Comp Metabolic Roh040 B/C Ratio 13.7 Ratio 04/26/2018 Comp Metabolic Xuz686 CALCIUM 9.4 mg/dL 04/26/2018 Comp Metabolic Bsh434 ALK PHOS 116 U/L 04/26/2018 Comp Metabolic Jgn349 AST(SGOT) 13 U/L 04/26/2018 Comp Metabolic Lbj936 ALT(SGPT) 12 U/L 04/26/2018 Comp Metabolic Cvr091 BILI T 0.6 mg/dL 04/26/2018 Comp Metabolic Dwt282 ALBUMIN 3.8 g/dL 04/26/2018 Comp Metabolic Tzd460 TPRO 6.4 g/dL 04/26/2018 Comp Metabolic Xgg637 GLOB 2.6 g/dL 04/26/2018 Comp Metabolic Zjo183 A/G Ratio 1.4 Ratio 04/26/2018 Comp Metabolic Tgj062 Osmo 278 mOsmo 04/26/2018 Lipid Ord30 CHOL [...] 24.5 % 04/26/2018 Cbc With Differential Ord2 [place]% 6.7 % 04/26/2018 Cbc With Differential Ord2 [...] 2.47 K/ul 04/26/2018 Cbc With Differential Ord2 [place] ABS# 0.7 K/ul 04/26/2018 Cbc With Differential [...] Ord30 C/HDL 3.5 Ratio 03/15/2017 Comp Metabolic Vnf004 NA 140 mEq/L 03/15/2017 Comp Metabolic Auo127 K 3.6 mEq/L 03/15/2017 Comp Metabolic Aun488 CL 104 mEq/L 03/15/2017 Comp Metabolic Ekq771 CO2 27.0 mEq/L 03/15/2017 Comp Metabolic Uaj489 ANION GAP 13 03/15/2017 Comp Metabolic Hkd498 GLUCOSE 93 mg/dL 03/15/2017 Comp Metabolic Ndx188 Creat 0.9 mg/dL 03/15/2017 Comp Metabolic Obv464 eGFR 68 ml/min/1.73m2 03/15/2017 Comp Metabolic Wot043 BUN 10 mg/dL 03/15/2017 Comp Metabolic Dfk615 B/C Ratio 11.4 Ratio 03/15/2017 Comp Metabolic Cur858 CALCIUM 9.4 mg/dL 03/15/2017 Comp Metabolic Jro498 ALK PHOS 84 U/L 03/15/2017 Comp Metabolic Tmq690 AST(SGOT) 14 U/L 03/15/2017 Comp Metabolic Wra582 ALT(SGPT) 15 U/L 03/15/2017 Comp Metabolic Xpb938 BILI T 0.5 mg/dL 03/15/2017 Comp Metabolic Ojs256 ALBUMIN 3.6 g/dL 03/15/2017 Comp Metabolic Gix949 TPRO 6.0 g/dL 03/15/2017 Comp Metabolic Waj030 GLOB 2.4 g/dL 03/15/2017 Comp Metabolic Lpt678 A/G Ratio 1.5 Ratio 03/15/2017 Comp Metabolic Eut651 Osmo 278 mOsmo 03/15/2017 Magnesium Ord90 Mag [...] 30.4 pg 03/15/2017 Cbc With Differential Ord2 [place]% 6.7 % 03/15/2017 Cbc With Differential Ord2 [...] 2.24 K/ul 03/15/2017 Cbc With Differential Ord2 [place] ABS# 0.5 K/ul 03/15/2017 Cbc With Differential [...] Ord15 CALCIUM 9.4 mg/dL 01/15/2017 Comp Metabolic Feh994 NA 137 mEq/L 12/31/2016 Comp Metabolic Fqq689 K 3.2 mEq/L 12/31/2016 Comp Metabolic Dzh549 CL 95 mEq/L 12/31/2016 Comp Metabolic Ror346 CO2 30.0 mEq/L 12/31/2016 Comp Metabolic Fsf160 ANION GAP 15 12/31/2016 Comp Metabolic Clg227 GLUCOSE 111 mg/dL 12/31/2016 Comp Metabolic Pyu342 Creat 1.3 mg/dL 12/31/2016 Comp Metabolic Ebe094 eGFR 45 ml/min/1.73m2 12/31/2016 Comp Metabolic Qnd022 BUN 14 mg/dL 12/31/2016 Comp Metabolic Dcj104 B/C Ratio 11.1 Ratio 12/31/2016 Comp Metabolic Cqn309 CALCIUM 10.0 mg/dL 12/31/2016 Comp Metabolic Ull245 ALK PHOS 61 U/L 12/31/2016 Comp Metabolic Woh008 AST(SGOT) 14 U/L 12/31/2016 Comp Metabolic Ncf030 ALT(SGPT) 13 U/L 12/31/2016 Comp Metabolic Trq143 BILI T 0.9 mg/dL 12/31/2016 Comp Metabolic Ivp398 ALBUMIN 3.8 g/dL 12/31/2016 Comp Metabolic Dib557 TPRO 6.7 g/dL 12/31/2016 Comp Metabolic Qmc716 GLOB 2.9 g/dL 12/31/2016 Comp Metabolic Uic285 A/G Ratio 1.3 Ratio 12/31/2016 Comp Metabolic Lrf901 Osmo 275 mOsmo 12/31/2016 Cbc With Differential [...] 30.3 pg 12/31/2016 Cbc With Differential Ord2 [place]% 11.2 % 12/31/2016 Cbc With Differential Ord2 [...] 1.89 K/ul 12/31/2016 Cbc With Differential Ord2 [place] ABS# 0.7 K/ul 12/31/2016 Cbc With Differential Ord2 Eos ABS# 0.1 K/ul 12/31/2016 Cbc With Differential Ord2 Baso ABS# 0.1 K/ul 12/31/2016 Urine Culture Ucult Complete >100,000 col/ml aerobic growth sent to ref lab 10/30/2016 Tsh Ord6 hTSH II 2.88 uIU/mL 09/15/2016 Comp Metabolic Ujk939 NA 139 mEq/L 09/15/2016 Comp Metabolic Unq388 K 4.0 mEq/L 09/15/2016 Comp Metabolic Vqa925 CL 104 mEq/L 09/15/2016 Comp Metabolic Lsn462 CO2 27.0 mEq/L 09/15/2016 Comp Metabolic Ert795 ANION GAP 12 09/15/2016 Comp Metabolic Urt725 GLUCOSE 105 mg/dL 09/15/2016 Comp Metabolic Dhk230 Creat 0.9 mg/dL 09/15/2016 Comp Metabolic Ioi443 eGFR 67 ml/min/1.73m2 09/15/2016 Comp Metabolic Gtt608 BUN 14 mg/dL 09/15/2016 Comp Metabolic Bhz392 B/C Ratio 15.7 Ratio 09/15/2016 Comp Metabolic Cgc240 CALCIUM 9.0 mg/dL 09/15/2016 Comp Metabolic Hjt427 ALK PHOS 85 U/L 09/15/2016 Comp Metabolic Ikn685 AST(SGOT) 12 U/L 09/15/2016 Comp Metabolic Ckg694 ALT(SGPT) 11 U/L 09/15/2016 Comp Metabolic Wwp388 BILI T 0.5 mg/dL 09/15/2016 Comp Metabolic Uxe511 ALBUMIN 3.4 g/dL 09/15/2016 Comp Metabolic Iym835 TPRO 5.8 g/dL 09/15/2016 Comp Metabolic Gjl832 GLOB 2.4 g/dL 09/15/2016 Comp Metabolic Glm319 A/G Ratio 1.4 Ratio 09/15/2016 Comp Metabolic Fpv634 Osmo 278 mOsmo 09/15/2016 Vitamin D 25 Oh Vsu6908 VITAMIN D, 25 HYDROXY 25.95 ng/mL Lipid [...] 9.2 mg/dL 01/13/2016 Vitamin D 25 Oh Nxz2680 VITAMIN D, 25 HYDROXY 38.03 ng/mL Comp Metabolic Rws008 NA 139 mEq/L 11/28/2015 Comp Metabolic Kfd810 K 4.0 mEq/L 11/28/2015 Comp Metabolic Duu031 CL 105 mEq/L 11/28/2015 Comp Metabolic Sbe026 CO2 25.0 mEq/L 11/28/2015 Comp Metabolic Lzj652 ANION GAP 13 11/28/2015 Comp Metabolic Zwc048 GLUCOSE 100 mg/dL 11/28/2015 Comp Metabolic Uvu187 Creat 1.1 mg/dL 11/28/2015 Comp Metabolic Mas071 eGFR 55 ml/min/1.73m2 11/28/2015 Comp Metabolic Udc721 BUN 13 mg/dL 11/28/2015 Comp Metabolic Syb114 B/C Ratio 12.3 Ratio 11/28/2015 Comp Metabolic Czh249 CALCIUM 9.2 mg/dL 11/28/2015 Comp Metabolic Lkd255 ALK PHOS 85 U/L 11/28/2015 Comp Metabolic Bkx093 AST(SGOT) 15 U/L 11/28/2015 Comp Metabolic Pfy277 ALT(SGPT) 15 U/L 11/28/2015 Comp Metabolic Mds224 BILI T 0.5 mg/dL 11/28/2015 Comp Metabolic Zeh827 ALBUMIN 3.7 g/dL 11/28/2015 Comp Metabolic Dbg917 TPRO 6.4 g/dL 11/28/2015 Comp Metabolic Rau536 GLOB 2.7 g/dL 11/28/2015 Comp Metabolic Iaj491 A/G Ratio 1.4 Ratio 11/28/2015 Comp Metabolic Ziu731 Osmo 278 mOsmo 11/28/2015 Tsh Ord6 hTSH II 1.98 uIU/mL 11/28/2015 Free T4 Tok265 FREE T4 1.04 ng/dL 11/28/2015 Cbc With [...] 30.9 pg 11/28/2015 Cbc With Differential Ord2 [place]% 6.7 % 11/28/2015 Cbc With Differential Ord2 [...] 2.19 K/ul 11/28/2015 Cbc With Differential Ord2 [place] ABS# 0.6 K/ul 11/28/2015 Cbc With Differential Ord2 Eos ABS# 0.1 K/ul 11/28/2015 Cbc With Differential Ord2 Baso ABS# 0.1 K/ul 11/28/2015 Comp Metabolic Hxj389 NA 135 mEq/L 10/15/2015 Comp Metabolic Ucl493 K 3.5 mEq/L 10/15/2015 Comp Metabolic Fgk470 CL 100 mEq/L 10/15/2015 Comp Metabolic Ffx493 CO2 29.0 mEq/L 10/15/2015 Comp Metabolic Vgv513 ANION GAP 10 10/15/2015 Comp Metabolic Mdr575 GLUCOSE 88 mg/dL 10/15/2015 Comp Metabolic Bbl635 Creat 0.9 mg/dL 10/15/2015 Comp Metabolic Juo032 eGFR 67 ml/min/1.73m2 10/15/2015 Comp Metabolic Gji287 BUN 16 mg/dL 10/15/2015 Comp Metabolic Wgb088 B/C Ratio 17.8 Ratio 10/15/2015 Comp Metabolic Wbs291 CALCIUM 9.4 mg/dL 10/15/2015 Comp Metabolic Tqj171 ALK PHOS 96 U/L 10/15/2015 Comp Metabolic Pan911 AST(SGOT) 15 U/L 10/15/2015 Comp Metabolic Lwn735 ALT(SGPT) -125 U/L 10/15/2015 Comp Metabolic Rti388 BILI T 0.4 mg/dL 10/15/2015 Comp Metabolic Tyf581 ALBUMIN 4.2 g/dL 10/15/2015 Comp Metabolic Bmc741 TPRO 7.2 g/dL 10/15/2015 Comp Metabolic Tqb464 GLOB 3.1 g/dL 10/15/2015 Comp Metabolic Sxp819 A/G Ratio 1.4 Ratio 10/15/2015 Comp Metabolic Oat334 Osmo 271 mOsmo 10/15/2015 Comp Metabolic Evz577 NA 135 mEq/L 10/15/2015 Comp Metabolic Vku489 K 3.5 mEq/L 10/15/2015 Comp Metabolic Arw631 CL 100 mEq/L 10/15/2015 Comp Metabolic Wwl877 CO2 29.0 mEq/L 10/15/2015 Comp Metabolic Pef917 ANION GAP 10 10/15/2015 Comp Metabolic Mav500 GLUCOSE 88 mg/dL 10/15/2015 Comp Metabolic Xqh728 Creat 0.9 mg/dL 10/15/2015 Comp Metabolic Wjp649 eGFR 67 ml/min/1.73m2 10/15/2015 Comp Metabolic Qsk476 BUN 16 mg/dL 10/15/2015 Comp Metabolic Bic910 B/C Ratio 17.8 Ratio 10/15/2015 Comp Metabolic Ppd682 CALCIUM 9.4 mg/dL 10/15/2015 Comp Metabolic Oln887 ALK PHOS 96 U/L 10/15/2015 Comp Metabolic Jsw631 AST(SGOT) 15 U/L 10/15/2015 Comp Metabolic Evh832 ALT(SGPT) 14 U/L 10/15/2015 Comp Metabolic Lcp768 BILI T 0.4 mg/dL 10/15/2015 Comp Metabolic Fbi770 ALBUMIN 4.2 g/dL 10/15/2015 Comp Metabolic Nkt411 TPRO 7.2 g/dL 10/15/2015 Comp Metabolic Nsv669 GLOB 3.1 g/dL 10/15/2015 Comp Metabolic Kpq780 A/G Ratio 1.4 Ratio 10/15/2015 Comp Metabolic Qys737 Osmo 271 mOsmo 10/15/2015 Magnesium Ord90 Mag 2.2 mg/dL 10/15/2015 Magnesium Ord90 Mag 1.9 mg/dL 09/05/2015 Comp Metabolic Pus829 NA 138 mEq/L 09/05/2015 Comp Metabolic Zkd671 K 3.7 mEq/L 09/05/2015 Comp Metabolic Jws220 CL 99 mEq/L 09/05/2015 Comp Metabolic Ptn360 CO2 30.0 mEq/L 09/05/2015 Comp Metabolic Eng664 ANION GAP 13 09/05/2015 Comp Metabolic Nhg456 GLUCOSE 97 mg/dL 09/05/2015 Comp Metabolic Kvn646 Creat 1.1 mg/dL 09/05/2015 Comp Metabolic Vsh369 eGFR 54 ml/min/1.73m2 09/05/2015 Comp Metabolic Zdc519 BUN 18 mg/dL 09/05/2015 Comp Metabolic Ogm742 B/C Ratio 16.7 Ratio 09/05/2015 Comp Metabolic Kkd540 CALCIUM 9.6 mg/dL 09/05/2015 Comp Metabolic Blj543 ALK PHOS 96 U/L 09/05/2015 Comp Metabolic Nws451 AST(SGOT) 15 U/L 09/05/2015 Comp Metabolic Vos946 ALT(SGPT) 14 U/L 09/05/2015 Comp Metabolic Rds316 BILI T 0.5 mg/dL 09/05/2015 Comp Metabolic Cgg658 ALBUMIN 4.1 g/dL 09/05/2015 Comp Metabolic Wyk052 TPRO 7.0 g/dL 09/05/2015 Comp Metabolic Bbn561 GLOB 3.0 g/dL 09/05/2015 Comp Metabolic Xot045 A/G Ratio 1.4 Ratio 09/05/2015 Comp Metabolic Fij726 Osmo 277 mOsmo 09/05/2015 Vitamin D 25 Oh Eut5771 VITAMIN D, 25 HYDROXY 22.39 ng/mL Magnesium Ord90 Mag 2.0 mg/dL 06/11/2015 Tsh Ord6 hTSH II 3.52 uIU/mL 06/11/2015 Comp Metabolic Dhw685 NA 135 mEq/L 06/11/2015 Comp Metabolic Ece787 K 4.3 mEq/L 06/11/2015 Comp Metabolic Idr103 CL 103 mEq/L 06/11/2015 Comp Metabolic Smi822 CO2 25.0 mEq/L 06/11/2015 Comp Metabolic Hws602 ANION GAP 11 06/11/2015 Comp Metabolic Qig824 GLUCOSE 75 mg/dL 06/11/2015 Comp Metabolic Oob359 Creat 0.9 mg/dL 06/11/2015 Comp Metabolic Vyu982 eGFR 69 ml/min/1.73m2 06/11/2015 Comp Metabolic Bff741 BUN 22 mg/dL 06/11/2015 Comp Metabolic Evi699 B/C Ratio 25.3 Ratio 06/11/2015 Comp Metabolic Zeo257 CALCIUM 9.2 mg/dL 06/11/2015 Comp Metabolic Yyg582 ALK PHOS 88 U/L 06/11/2015 Comp Metabolic Nzh504 AST(SGOT) 13 U/L 06/11/2015 Comp Metabolic Qou834 ALT(SGPT) 15 U/L 06/11/2015 Comp Metabolic Iad650 BILI T 0.4 mg/dL 06/11/2015 Comp Metabolic Fma313 ALBUMIN 3.7 g/dL 06/11/2015 Comp Metabolic Npz866 TPRO 6.6 g/dL 06/11/2015 Comp Metabolic Zej203 GLOB 2.9 g/dL 06/11/2015 Comp Metabolic Get660 A/G Ratio 1.3 Ratio 06/11/2015 Comp Metabolic Bvq818 Osmo 272 mOsmo 06/11/2015 Free T4 Jiz715 FREE T4 0.95 ng/dL 06/11/2015 Cbc With [...] 31.3 pg 06/11/2015 Cbc With Differential Ord2 [place]% 7.4 % 06/11/2015 Cbc With Differential Ord2 [...] 2.57 K/ul 06/11/2015 Cbc With Differential Ord2 [place] ABS# 0.9 K/ul 06/11/2015 Cbc With Differential [...] 13.8 % 11/16/2014 Vitamin D 25 Oh Smr7854 VITAMIN D, 25 HYDROXY 22.85 ng/mL Lipid Ord30 CHOL 206 mg/dL 11/16/2014 Lipid Ord30 HDL 49.0 mg/dl 11/16/2014 Lipid Ord30 TRIG 104 mg/dL 11/16/2014 Lipid Ord30 LDL 136 mg/dL 11/16/2014 Lipid Ord30 C/HDL 4.2 Ratio 11/16/2014 Tsh Ord6 hTSH II 2.05 uIU/mL 11/16/2014 Comp Metabolic Hxz884 NA 138 mEq/L 11/16/2014 Comp Metabolic Aks732 K 4.0 mEq/L 11/16/2014 Comp Metabolic Lmr627 CL 104 mEq/L 11/16/2014 Comp Metabolic Jxp701 CO2 27.0 mEq/L 11/16/2014 Comp Metabolic Dnk528 ANION GAP 11 11/16/2014 Comp Metabolic Okk830 GLUCOSE 94 mg/dL 11/16/2014 Comp Metabolic Nnw837 Creat 0.9 mg/dL 11/16/2014 Comp Metabolic Hhh791 eGFR 64 ml/min/1.73m2 11/16/2014 Comp Metabolic Pyt927 BUN 12 mg/dL 11/16/2014 Comp Metabolic Pvt692 B/C Ratio 12.9 Ratio 11/16/2014 Comp Metabolic Nln358 CALCIUM 9.4 mg/dL 11/16/2014 Comp Metabolic Guu055 ALK PHOS 88 U/L 11/16/2014 Comp Metabolic Yxj406 AST(SGOT) 14 U/L 11/16/2014 Comp Metabolic Azk229 ALT(SGPT) 12 U/L 11/16/2014 Comp Metabolic Rjf419 BILI T 0.6 mg/dL 11/16/2014 Comp Metabolic Jzj059 ALBUMIN 3.7 g/dL 11/16/2014 Comp Metabolic Dvk797 TPRO 6.3 g/dL 11/16/2014 Comp Metabolic Irh336 GLOB 2.6 g/dL 11/16/2014 Comp Metabolic Nqq749 A/G Ratio 1.4 Ratio 11/16/2014 Comp Metabolic Oyu505 Osmo 275 mOsmo 11/16/2014 %Hba1C Fem290 % HbA1c 63637-1 5.7 % 11/16/2014 %Hba1C Pdc496 Gluc Ave 117 mg/dL 11/16/2014 GFR CALC 7906580 GFR AA >60 ML/MIN 04/12/2013 GFR CALC 6417509 GFR NON-AA >60 ML/MIN 04/12/2013 TSH 3399228 TSH 2.194 uIU/ML 04/12/2013 VIT B 12 1240705 VIT B 12 415 PG/ML 04/12/2013 CBC 7332738 WBC 8.8 10e9/L 04/12/2013 CBC 2850575 RBC 4.59 10e12/L 04/12/2013 CBC 9110581 HGB 14.3 g/dL 04/12/2013 CBC 6514881 HCT DET 42.4 % 04/12/2013 CBC 8173395 MCV 92.4 fL 04/12/2013 CBC 2723812 MCH 31.2 pg 04/12/2013 CBC 3198837 MCHC 33.7 g/dL 04/12/2013 CBC 7816025 PLT 213 10e9/L 04/12/2013 CBC 1298380 MPV 12.8 fL 04/12/2013 CBC 6783610 LULU % 61.8 % 04/12/2013 CBC 4120333 LY % 29.2 % 04/12/2013 CBC 5041121 MON % 7.2 % 04/12/2013 CBC 6794642 EOS % 1.3 % 04/12/2013 CBC 1098864 BASO % 0.5 % 04/12/2013 CBC 5428926 RDW 12.6 % 04/12/2013 CBC 7311228 ABS LULU 5.44 10e9/L 04/12/2013 CBC 5954899 ABS LYMPH 2.57 10e9/L 04/12/2013 CBC 5422403 ABS MONO 0.63 10e9/L 04/12/2013 CBC 2565872 ABS EOS 0.11 10e9/L 04/12/2013 CBC 5225717 ABS BASO 0.04 10e9/L 04/12/2013 CBC 0453876 RDW-SD 41.3 fL 04/12/2013 FREE T4 7310283 FREE T4 1.09 NG/DL 04/12/2013 A1C HPLC 4618831 A1C HPLC 04658-4 5.4 % 04/12/2013 CHEM 14 6129569 AST 12 U/L 04/12/2013 CHEM 14 1427825 ALT 11 IU/L 04/12/2013 CHEM 14 4856659 BUN 14 MG/DL 04/12/2013 CHEM 14 9423112 ALBUMIN 4.1 GM/DL 04/12/2013 CHEM 14 1146808 CHLORIDE 105 MMOL/L 04/12/2013 CHEM 14 5637072 BILI TOT 0.6 MG/DL 04/12/2013 CHEM 14 2185916 ALK PHOS 81 U/L 04/12/2013 CHEM 14 0215830 SODIUM 138 MMOL/L 04/12/2013 CHEM 14 3734180 CREATININE 0.86 MG/DL 04/12/2013 CHEM 14 6390538 CALCIUM 9.8 MG/DL 04/12/2013 CHEM 14 2397858 POTASSIUM 4.1 MMOL/L 04/12/2013 CHEM 14 6824746 PROT TOT 6.6 GM/DL 04/12/2013 CHEM 14 1816655 GLUCOSE 112 MG/DL 04/12/2013 CHEM 14 7625448 BICARB 27 MMOL/L 04/12/2013 CHEM 14 4144818 ANION GAP 6 MEQ/L 04/12/2013 LIPID GRP HDL TEST 55 MG/DL 04/12/2013 LIPID GRP TRIG 107 MG/DL 04/12/2013 LIPID GRP TEST LDL 193 MG/DL 04/12/2013 LIPID GRP CHOL 269 MG/DL 04/12/2013 LIPID GRP RCHOL/HDL 4.89 RATIO 04/12/2013 NICOT QN S 3082114 NICOTIN S < 2.0 NG/ML 03/07/2012 NICOT QN S 3525493 XCOTININ S < 2.0 NG/ML 03/07/2012 CBC 3851380 WBC 8.1 10e9/L 03/02/2012 CBC 5894324 RBC 4.44 10e12/L 03/02/2012 CBC 0147407 HGB 13.8 g/dL 03/02/2012 CBC 0639930 HCT DET 41.3 % 03/02/2012 CBC 6124206 MCV 93.0 fL 03/02/2012 CBC 3379870 MCH 31.1 pg 03/02/2012 CBC 7526868 MCHC 33.4 g/dL 03/02/2012 CBC 5096610 PLT 188 10e9/L 03/02/2012 CBC 6845710 MPV 14.3 fL 03/02/2012 CBC 9696795 LULU % 61.5 % 03/02/2012 CBC 8107066 LY % 28.8 % 03/02/2012 CBC 5891155 MON % 8.0 % 03/02/2012 CBC 6136356 EOS % 1.1 % 03/02/2012 CBC 6780600 BASO % 0.6 % 03/02/2012 CBC 0688404 RDW 14.0 % 03/02/2012 CBC 2388549 ABS LULU 4.98 10e9/L 03/02/2012 CBC 6793595 ABS LYMPH 2.33 10e9/L 03/02/2012 CBC 5119644 ABS MONO 0.65 10e9/L 03/02/2012 CBC 1744551 ABS EOS 0.09 10e9/L 03/02/2012 CBC 6974501 ABS BASO 0.05 10e9/L 03/02/2012 CBC 8813723 RDW-SD 46.3 fL 03/02/2012 LIPID GRP HDL TEST 37 MG/DL 03/02/2012 LIPID GRP TRIG 136 MG/DL 03/02/2012 LIPID GRP TEST LDL 106 MG/DL 03/02/2012 LIPID GRP CHOL 170 MG/DL 03/02/2012 LIPID GRP RCHOL/HDL 4.59 RATIO 03/02/2012 GFR CALC 2085886 GFR AA >60 ML/MIN 03/02/2012 GFR CALC 1880941 GFR NON-AA >60 ML/MIN 03/02/2012 FREE T4 0627896 FREE T4 1.09 NG/DL 03/02/2012 A1C HPLC 6693551 A1C HPLC 65041-9 5.4 % 03/02/2012 CHEM 14 8563404 AST 17 U/L 03/02/2012 CHEM 14 5676243 ALT 22 IU/L 03/02/2012 CHEM 14 6287973 BUN 15 MG/DL 03/02/2012 CHEM 14 1239139 ALBUMIN 4.0 GM/DL 03/02/2012 CHEM 14 9664630 CHLORIDE 107 MMOL/L 03/02/2012 CHEM 14 9003996 BILI TOT 0.4 MG/DL 03/02/2012 CHEM 14 2191000 ALK PHOS 83 U/L 03/02/2012 CHEM 14 1875900 SODIUM 141 MMOL/L 03/02/2012 CHEM 14 1997862 CREATININE 0.86 MG/DL 03/02/2012 CHEM 14 5327398 CALCIUM 9.5 MG/DL 03/02/2012 CHEM 14 8276019 POTASSIUM 4.0 MMOL/L 03/02/2012 CHEM 14 6290318 PROT TOT 6.6 GM/DL 03/02/2012 CHEM 14 2230433 GLUCOSE 102 MG/DL 03/02/2012 CHEM 14 9141712 BICARB 28 MMOL/L 03/02/2012 CHEM 14 5134573 ANION GAP 6 MEQ/L 03/02/2012 TSH 7403592 TSH 2.320 uIU/ML 03/02/2012 GFR CALC 2393192 GFR AA >60 ML/MIN 07/03/2011 GFR CALC 9156911 GFR NON-AA 54.0L ML/MIN 07/03/2011 CHEM 14 1197217 AST 15 U/L 07/03/2011 CHEM 14 6667090 ALT 30 IU/L 07/03/2011 CHEM 14 5717824 BUN 19 MG/DL 07/03/2011 CHEM 14 1637503 ALBUMIN 4.2 GM/DL 07/03/2011 CHEM 14 2138004 CHLORIDE 100 MMOL/L 07/03/2011 CHEM 14 7136038 BILI TOT 0.8 MG/DL 07/03/2011 CHEM 14 6800377 ALK PHOS 74 U/L 07/03/2011 CHEM 14 8342742 SODIUM 137 MMOL/L 07/03/2011 CHEM 14 6916258 CREATININE 1.03 MG/DL 07/03/2011 CHEM 14 2958000 CALCIUM 9.6 MG/DL 07/03/2011 CHEM 14 4026273 POTASSIUM 4.4 MMOL/L 07/03/2011 CHEM 14 3249074 PROT TOT 6.7 GM/DL 07/03/2011 CHEM 14 9942996 GLUCOSE 106 MG/DL 07/03/2011 CHEM 14 5220536 BICARB 28 MMOL/L 07/03/2011 CHEM 14 3984288 ANION GAP 9 MEQ/L 07/03/2011 URINALYSIS NONAUTO W/O SCOPE 17907 Specific [place] 1.010 DateTime(Free Text in Aprima) URINALYSIS NONAUTO W/O SCOPE 95153 PH 5 DateTime(Free Text in Aprima) URINALYSIS NONAUTO W/O SCOPE 39225 GLUCOSE neg DateTime( Free Text in Apr[employer]) URINALYSIS NONAUTO W/O SCOPE 13518 Protein neg DateTime( Free Text in Apr[employer]) URINALYSIS NONAUTO W/O SCOPE 65772 Blood 1+ DateTime(Free Text in [employer]) URINALYSIS NONAUTO W/O SCOPE 10823 Bilirubin neg DateTime(Free Text in Apr[employer]) URINALYSIS NONAUTO W/O SCOPE 01580 Ketones neg DateTime( Free Text in Aprima) URINALYSIS NONAUTO W/O SCOPE 45009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
--- OUTSIDE RECORDS SUMMARY | 2018-06-03 07:31 | XMS REPORT | CCD ---
Author Author [facility] Address [address] [place] [address] Phone Care Team Providers Care Utility Bag Assembler Name Role Phone PP Unavailable CCM Unavailable Summary Purpose Interface Exchange Insurance Providers Payer name Policy type / Coverage type Covered republican ID Effective Begin Date Effective End Date WPS Medicare Part B Medicare Part B [id number] 2017 Unknown [employer] Medicare Part B [id number] Unknown Family history Father Diagnosis Age At Onset No Family Disease Entered N/A Runs in the family Diagnosis Age At Onset Diabetes Unknown Mother Diagnosis Age At Onset No Family Disease Entered N/A Social History Social History Element Codes Description Effective Dates Employment 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 Active 03/17/2011 Unknown Obesity ICD-9: [...] Codes Effective Dates Condition Status Encounter for general adult medical examination with [...] SINUSITIS ICD-9 : 461.9 03/17/2011 Active 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 03/17/2011 Active Obesity ICD-9: 278.00 [...] Start Date Stop Date Status Fill Instructions potassium chloride ER 10 mEq tablet,extended release RxNorm: 572383 1 Tablet(s) TAKE 1 CAPSULES BY MOUTH TWICE DAILY 05/02/2018 No Stop Date Active doxycycline hyclate 100 mg tablet RxNorm: 4455434 1 Tablet(s) PO BID 04/01/2018 03/31/2018 Inactive doxycycline hyclate 100 mg tablet RxNorm: 2402518 1 Tablet(s) PO BID 04/01/2018 04/10/2018 Inactive ketorolac 60 mg/2 mL intramuscular solution RxNorm: 0669352 Milliliter(s) IM 03/21/2018 03/21/2018 Inactive Voltaren 1 % topical gel RxNorm: 213095 4 Gram(s) TOP QID 03/1103/10/2018 Inactive Voltaren 1 % topical gel RxNorm: 752755 4 Gram(s) TOP QID 03/1104/09/2018 Inactive Xanax 0.25 mg tablet RxNorm: 834239 Tablet(s) PO TAKE ONE TABLET BY MOUTH EVERY 4 TO 6 HOURS NEEDED 03/09/20182018 Active potassium chloride ER 10 mEq tablet,extended release RxNorm: 407729 TAKE 2 CAPSULES BY MOUTH TWICE DAILY 02/28/2018 05/01/2018 Inactive Levaquin 500 mg tablet RxNorm: 315352 1 Tablet(s) PO daily 12/201701/31/2018 Inactive Macrobid 100 mg capsule RxNorm: 294596 1 Capsule(s) PO BID 01/06/2018 Inactive Macrobid 100 mg capsule RxNorm: 553796 1 Capsule(s) PO BID 12/30/2017 Inactive ondansetron 4 mg disintegrating tablet RxNorm: 436591 1 Tablet(s) PO Q4 PRN 10/22/2017 No Stop Date Active Xanax 0.25 mg tablet RxNorm: 325505 Tablet(s) PO TAKE ONE TABLET BY MOUTH EVERY 4 TO 6 HOURS NEEDED 07/29/20172017 Inactive Levaquin 500 mg tablet RxNorm: 887566 1 Tablet(s) PO daily 07/14/2017 Inactive Levaquin 500 mg tablet RxNorm: 529326 1 Tablet(s) PO daily 07/21/2017 Inactive Xarelto 20 mg tablet RxNorm: 8861727 1 Tablet(s) PO daily 06/2812/24/2017 Inactive Xarelto 20 mg tablet RxNorm: 0253992 1 Tablet(s) PO daily 06/2806/27/2017 Inactive potassium chloride ER 10 mEq tablet,extended release RxNorm: 571881 2 Capsule(s) PO BID 06/28/2017 12/24/2017 Inactive potassium chloride ER 10 mEq tablet,extended release RxNorm: 631798 2 Capsule(s) PO BID 06/28/2017 06/27/2017 Inactive prednisone 10 mg tablet RxNorm: 765226 Tablet(s) PO UD 201703/20/2018 Inactive 6,5,4,3,2,1 Vitamin D2 50,000 unit capsule RxNorm: 127428 1 Capsule(s) PO QW 04/26/2017 07/24/2017 Inactive Lexapro 10 mg tablet RxNorm: 693509 1 Tablet(s) PO QHS 201601/11/2017 Inactive Lexapro 10 mg tablet RxNorm: 474771 1 Tablet(s) PO QHS 201604/25/2017 Inactive famotidine 20 mg tablet RxNorm: 774357 1 Tablet(s) PO BID 01/0601/05/2017 Inactive famotidine 20 mg tablet RxNorm: 596377 1 Tablet(s) PO BID 01/0604/25/2017 Inactive doxazosin 2 mg tablet RxNorm: 179786 TAKE ONE-HALF TABLET BY MOUTH TWICE DAILY 12/17/2016 04/25/2017 Inactive Xanax 0.25 mg tablet RxNorm: 350659 Tablet(s) PO TAKE ONE TABLET BY MOUTH EVERY 4 TO 6 HOURS NEEDED 11/12/20162016 Inactive Xanax 0.25 mg tablet RxNorm: 737525 Tablet(s) PO TAKE ONE TABLET BY MOUTH EVERY 4 TO 6 HOURS NEEDED 11/12/20162016 Inactive Levaquin 500 mg tablet RxNorm: 845782 1 Tablet(s) PO daily 10/28/2016 Inactive Levaquin 500 mg tablet RxNorm: 179780 1 Tablet(s) PO daily 11/04/2016 Inactive Pyridium 200 mg tablet RxNorm: 4939332 1 Tablet(s) PO TID PRN 10/29/2016 04/25/2017 Inactive potassium chloride ER 10 mEq tablet,extended release RxNorm: 570659 2 Capsule(s) PO BID 10/20/2016 02/16/2017 Inactive potassium chloride ER 10 mEq tablet,extended release RxNorm: 537511 2 Capsule(s) PO BID 10/16/2016 10/19/2016 Inactive potassium chloride ER 10 mEq tablet,extended release RxNorm: 982542 1 Capsule(s) PO daily 10/15/2016 10/15/2016 Inactive potassium chloride 40 mEq/15 mL oral liquid RxNorm: 292158 7.5 Milliliter(s) PO BID 10/05/2016 10/11/2016 Inactive potassium chloride 40 mEq/15 mL oral liquid RxNorm: 770160 7.5 Milliliter(s) PO BID 10/05/2016 10/04/2016 Inactive potassium chloride 40 mEq/15 mL oral liquid RxNorm: 670211 7.5 Milliliter(s) PO BID 10/05/2016 10/04/2016 Inactive doxycycline hyclate 100 mg tablet RxNorm: 924622 1 Tablet(s) PO BID 09/30/2016 10/09/2016 Inactive Vitamin D2 50,000 unit capsule RxNorm: 862532 1 Capsule(s) PO QW 09/15/2016 09/14/2016 Inactive Vitamin D2 50,000 unit capsule RxNorm: 281335 1 Capsule(s) PO QW 09/15/2016 12/13/2016 Inactive doxycycline hyclate 100 mg tablet RxNorm: 305052 1 Tablet(s) PO BID 08/11/2016 08/24/2016 Inactive doxycycline hyclate 100 mg tablet RxNorm: 477001 1 Tablet(s) PO BID 07/24/2016 07/28/2016 Inactive mupirocin 2 % topical ointment RxNorm: 355093 1 Application TOP BID 07/24/2016 07/23/2016 Inactive mupirocin 2 % topical ointment RxNorm: 106129 1 Application TOP BID 07/24/2016 07/30/2016 Inactive doxycycline hyclate 100 mg tablet RxNorm: 608713 1 Tablet(s) PO BID 07/24/2016 07/23/2016 Inactive potassium chloride ER 10 mEq tablet,extended release RxNorm: 105300 2 Tablet(s) PO BID 07/20/2016 10/04/2016 Inactive Lasix 20 mg tablet RxNorm: 963764 1 Tablet(s) PO PRN 2016 No Stop Date Active PRN for swelling Xanax 0.25 mg tablet RxNorm: 616601 Tablet(s) PO TAKE ONE TABLET BY MOUTH EVERY 4 TO 6 HOURS NEEDED 06/19/20162016 Inactive prednisone 20 mg tablet RxNorm: 217293 1 Tablet(s) PO BID 06/0306/07/2016 Inactive potassium chloride ER 10 mEq tablet,extended release RxNorm: 062053 2 Tablet(s) PO BID 05/06/2016 05/05/2016 Inactive potassium chloride ER 10 mEq tablet,extended release RxNorm: 645941 2 Tablet(s) PO BID 05/06/2016 06/04/2016 Inactive Levaquin 500 mg tablet RxNorm: 853767 1 Tablet(s) PO daily 03/30/2016 Inactive Levaquin 500 mg tablet RxNorm: 720252 1 Tablet(s) PO daily 04/06/2016 Inactive prednisone 20 mg tablet RxNorm: 640755 1 Tablet(s) PO BID 02/2402/29/2016 Inactive prednisone 20 mg tablet RxNorm: 692708 1 Tablet(s) PO BID 02/2402/24/2016 Inactive Flonase 50 mcg/actuation nasal spray,suspension RxNorm: 2902736 2 [place] NASAL daily 02/18/2016 02/27/2016 Inactive doxycycline hyclate 100 mg tablet RxNorm: 655696 1 Tablet(s) PO BID 02/18/2016 02/27/2016 Inactive doxycycline hyclate 100 mg tablet RxNorm: 504679 1 Tablet(s) PO BID 02/18/2016 02/17/2016 Inactive cyclobenzaprine 5 mg tablet RxNorm: 342912 1-2 Tablet(s) PO TID as needed 02/12/2016 02/21/2016 Inactive cyclobenzaprine 5 mg tablet RxNorm: 586325 1-2 Tablet(s) PO TID as needed 02/12/2016 02/11/2016 Inactive Xanax 0.25 mg tablet RxNorm: 240465 Tablet(s) PO TAKE ONE TABLET BY MOUTH EVERY 4 TO 6 HOURS NEEDED 01/20/20162016 Inactive (Appended: Controlled substance eRx refill - RxReferenceNumber: [id number]) metoprolol tartrate 25 mg tablet RxNorm: 026674 1/2 Tablet(s) PO BID 12/13/2015 04/10/2016 Inactive doxazosin 2 mg tablet RxNorm: 612446 1 Tablet(s) PO QHS 201512/16/2016 Inactive metoprolol tartrate 25 mg tablet RxNorm: 442108 1/2 Tablet(s) PO BID 12/09/2015 12/12/2015 Inactive Vitamin D2 50,000 unit capsule RxNorm: 225801 1 Capsule(s) PO QW 12/09/2015 02/06/2016 Inactive Lasix 20 mg tablet RxNorm: 809923 1 Tablet(s) PO PRN 201507/05/2016 Inactive PRN for swelling potassium chloride ER 20 mEq tablet,extended release RxNorm: 310373 1 Tablet(s) PO daily as needed When taking lasix 10/03/2015 04/26/2016 Inactive cyanocobalamin (vit B-12) 1,000 mcg/mL injection solution RxNorm: 475879 Milliliter(s) Inj 09/13/2015 09/13/2015 Inactive doxycycline hyclate 100 mg tablet RxNorm: 561686 1 Tablet(s) PO BID 09/12/2015 09/18/2015 Inactive potassium chloride ER 10 mEq tablet,extended release RxNorm: 194398 1 Tablet(s) PO daily as needed When taking lasix 09/04/2015 10/02/2015 Inactive Lasix 20 mg tablet RxNorm: 244821 1 Tablet(s) PO PRN 201510/02/2015 Inactive PRN for swelling doxycycline hyclate 100 mg tablet RxNorm: 260893 1 Tablet(s) PO BID 08/26/2015 08/25/2015 Inactive doxycycline hyclate 100 mg tablet RxNorm: 772281 1 Tablet(s) PO BID 08/26/2015 09/01/2015 Inactive mupirocin 2 % topical ointment RxNorm: 883431 1 Application TOP BID 08/02/2015 08/01/2015 Inactive mupirocin 2 % topical ointment RxNorm: 704022 1 Application TOP BID 08/02/2015 08/08/2015 Inactive metoprolol tartrate 50 mg tablet RxNorm: 739632 2 tabs in morning and 1 tablet at night dose PO as directed 06/13/201510/23 Inactive 2 tabs in the morning, and 1 in the evening Benicar 40 mg tablet RxNorm: 527179 1 Tablet(s) PO daily 201510/21/2015 Inactive Benicar 40 mg tablet RxNorm: 097821 1 Tablet(s) PO daily 201506/12/2015 Inactive Vitamin D2 50,000 unit capsule RxNorm: 261668 1 Capsule(s) PO QW 06/11/2015 12/07/2015 Inactive Xanax 0.25 mg tablet RxNorm: 754540 Tablet(s) PO TAKE ONE TABLET BY MOUTH EVERY 4 TO 6 HOURS NEEDED 06/06/20152015 Inactive (Appended: Controlled substance eRx refill - RxReferenceNumber: [id number]) Levaquin 500 mg tablet RxNorm: 682642 1 Tablet(s) PO daily 11/201510/28/2015 Inactive Kenalog 40 mg/mL suspension for injection RxNorm: 5636329 Milliliter(s) Inj 03/27/2015 03/27/2015 Inactive Kenalog 40 mg/mL suspension for injection RxNorm: 5458381 Milliliter(s) Inj 12/11/2014 12/11/2014 Inactive Vitamin D2 50,000 unit capsule RxNorm: 620852 1 Capsule(s) PO QW 12/05/2014 06/02/2015 Inactive [SAVINGS FOR NON-COVERED DRUGS -- BIN:530956, PCN: ASPROD1, Group: XXXXX, ID# [id number], Questions: . THIS IS NOT INSURANCE.] Pradaxa 150 mg capsule RxNorm: 7742150 Capsule(s) PO BID 201409/08/2015 Inactive TAKE 1 CAPSULE BY MOUTH TWICE DAILY Vitamin D2 50,000 unit capsule RxNorm: 002770 1 Capsule(s) PO QW 12/04/2014 12/04/2014 Inactive [SAVINGS FOR NON-COVERED DRUGS -- BIN:855595, PCN: ASPROD1, Group: XXXXX, ID# [id number], Questions: . THIS IS NOT INSURANCE.] Lasix 20 mg tablet RxNorm: 691006 1 Tablet(s) PO PRN 201411/25/2014 Inactive PRN for swelling Levaquin 500 mg tablet RxNorm: 153094 1 Tablet(s) PO daily 01/201511/25/2014 Inactive Levaquin 500 mg tablet RxNorm: 886449 1 Tablet(s) PO daily 01/201512/02/2014 Inactive Lasix 20 mg tablet RxNorm: 865490 1 Tablet(s) PO PRN 201409/03/2015 Inactive PRN for swelling nitrofurantoin 100 mg capsule RxNorm: 296436 1 Capsule(s) PO BID 11/12/2014 11/17/2014 Inactive Macrobid 100 mg capsule RxNorm: 039232 1 Capsule(s) PO BID 11/18/2014 Inactive Macrobid 100 mg capsule RxNorm: 295649 1 Capsule(s) PO BID 11/11/2014 Inactive Levaquin 500 mg tablet RxNorm: 540493 1 Tablet(s) PO daily 11/11/2014 Inactive metoprolol tartrate 50 mg tablet RxNorm: 339564 2 tabs in morning and 1 tablet at night dose PO as directed 10/25/201405/21 Inactive 2 tabs in the morning, and 1 in the evening Xanax 0.25 mg tablet RxNorm: 904107 Tablet(s) PO TAKE ONE TABLET BY MOUTH EVERY 4 TO 6 HOURS NEEDED 08/30/20142014 Inactive (Appended: Controlled substance eRx refill - RxReferenceNumber: [id number]) Levaquin 500 mg tablet RxNorm: 170494 1 Tablet(s) PO daily 07/31/2014 Inactive Levaquin 500 mg tablet RxNorm: 677909 1 Tablet(s) PO daily 08/07/2014 Inactive Vitamin D2 50,000 unit capsule RxNorm: 135687 1 Capsule(s) PO QW 05/16/2014 2014 Inactive [SAVINGS FOR NON-COVERED DRUGS -- BIN:723123, PCN: ASPROD1, Group: XXXXX, ID# [id number], Questions: . THIS IS NOT INSURANCE.] Zithromax 500 mg tablet RxNorm: 171047 1 Tablet(s) PO daily 05/10/2014 Inactive Zithromax 500 mg tablet RxNorm: 838592 1 Tablet(s) PO daily 05/15/2014 Inactive [SAVINGS FOR NON-COVERED DRUGS -- BIN:426023, PCN: ASPROD1, Group: XXXXX, ID# [id number], Questions: . THIS IS NOT INSURANCE.] prednisone 20 mg tablet RxNorm: 608273 Tablet(s) PO 3daily x 2days, then 2daily x2days, then 1daily x2days, then 1/2 daily x 2days then stop 03/13/2014 2014 Inactive [SAVINGS FOR UNINSURED PATIENTS -- BIN:637318, PCN: ASPROD1, Group: [id number], ID# [id number], Process claim through [employer], for questions: [phone]. THIS IS NOT INSURANCE.] Levaquin 500 mg tablet RxNorm: 276845 1 Tablet(s) PO daily TAKE ONE TABLET BY MOUTH ONCE DAILY take with benadryl 03/13/2014 03/22/2014 Inactive [SAVINGS FOR UNINSURED PATIENTS -- BIN:023665, PCN: ASPROD1, Group: [id number], ID# [id number], Process claim through [employer], for questions: . 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 THIS IS NOT INSURANCE.] Xanax 0.25 mg tablet RxNorm: 421496 Tablet(s) PO TAKE ONE TABLET BY MOUTH EVERY 4 TO 6 HOURS NEEDED 02/05/20142013 Inactive (Appended: Controlled substance eRx refill - RxReferenceNumber: [id number]) prednisone 20 mg tablet RxNorm: 080007 2 Tablet(s) PO QAM 01/0601/10/2014 Inactive call pt when ready for warehouse picker today 01/06/14 Levaquin 500 mg tablet RxNorm: 563057 1 Tablet(s) PO daily TAKE ONE TABLET BY MOUTH ONCE DAILY take with benadryl 01/06/2014 01/12/2014 Inactive pt to warehouse picker today 01/06/14 prednisone 20 mg tablet RxNorm: 793652 Tablet(s) PO 3daily x 2days, then 2daily x2days, then 1daily x2days, then 1/2 daily x 2days then stop 12/13/2013 03/12/2014 Inactive Levaquin 500 mg tablet RxNorm: 361273 1 Tablet(s) PO daily TAKE ONE TABLET BY MOUTH ONCE DAILY take with benadryl 12/13/2013 12/19/2013 Inactive Vitamin D2 50,000 unit capsule RxNorm: 155668 1 Capsule(s) PO QW 12/12/2013 03/11/2014 Inactive weekly x 12 weeks Vitamin D2 50,000 unit capsule RxNorm: 365343 1 Capsule(s) PO QW 12/12/2013 12/11/2013 Inactive metoprolol tartrate 50 mg tablet RxNorm: 562172 2 tabs in morning and 1 tablet at night dose PO as directed 11/03/201305/31 Inactive 2 tabs in the morning, and 1 in the evening Bactroban 2 % topical ointment RxNorm: 522402 1 Application TOP BID 10/30/2013 11/08/2013 Inactive Bactroban 2 % topical ointment RxNorm: 255852 1 Application TOP BID 10/30/2013 10/29/2013 Inactive Lasix 40 mg tablet RxNorm: 501226 1 Tablet(s) PO daily as needed 10/23/2013 2014 Inactive metoprolol tartrate 50 mg tablet RxNorm: 524682 1 Tablet(s) PO BID 08/28/2013 09/26/2013 Inactive 2 tabs in the morning, and 1 in the evening metoprolol tartrate 50 mg tablet RxNorm: 984421 1 Tablet(s) PO BID 08/28/2013 08/27/2013 Inactive 2 tabs in the morning, and 1 in the evening Lasix 40 mg tablet RxNorm: 059402 1 Tablet(s) PO daily 201310/22/2013 Inactive Lasix 40 mg tablet RxNorm: 573495 1 Tablet(s) PO daily 201308/07/2013 Inactive potassium chloride ER 10 mEq tablet,extended release RxNorm: 034132 1 Tablet(s) PO BID 07/14/2013 2014 Inactive Lipitor 20 mg tablet RxNorm: 582246 1 Tablet(s) PO daily 201307/08/2014 Inactive generic ok Xanax 0.25 mg tablet RxNorm: 965602 Tablet(s) PO TAKE 1 TABLET BY MOUTH EVERY 4 TO 6 HOURS NEEDED 07/14/20132013 Inactive (Appended: Controlled substance eRx refill - RxReferenceNumber: [id number]|1|0|1) Xanax 0.25 mg tablet RxNorm: 179884 Tablet(s) PO TAKE ONE TABLET BY MOUTH EVERY 4 TO 6 HOURS NEEDED 07/14/20132013 Inactive (Appended: Controlled substance eRx refill - RxReferenceNumber: [id number]) metoprolol succinate ER 50 mg tablet,extended release 24 hr RxNorm: 991374 100mg q am 50 in even Tablet(s) PO 07/14/2013 Inactive Levaquin 500 mg tablet RxNorm: 560826 Tablet(s) PO TAKE ONE TABLET BY MOUTH ONCE DAILY 07/13/2013 12/12/2013 Inactive Levaquin 500 mg tablet RxNorm: 862380 Tablet(s) PO TAKE ONE TABLET BY MOUTH ONCE DAILY 07/13/2013 10/22/2013 Inactive Levaquin 500 mg tablet RxNorm: 950441 1 Tablet(s) PO daily 02/201305/22/2013 Inactive Levaquin 500 mg tablet RxNorm: 086868 1 Tablet(s) PO daily 05/15/2013 Inactive Lipitor 20 mg tablet RxNorm: 705024 1 Tablet(s) PO daily 201307/13/2013 Inactive generic ok Kenalog 40 mg/mL suspension for injection RxNorm: 7665721 1 Milliliter(s) Inj 04/14/2013 04/14/2013 Inactive Lipitor 20 mg tablet RxNorm: 040436 1 Tablet(s) PO daily 201304/16/2013 Inactive Lipitor 20 mg tablet RxNorm: 803628 1 Tablet(s) PO daily 201304/13/2013 Inactive metoprolol succinate ER 50 mg tablet,extended release 24 hr RxNorm: 980815 100mg q am 50 in even Tablet(s) PO 04/14/2013 Inactive Levaquin 500 mg tablet RxNorm: 280141 1 Tablet(s) PO daily 04/20/2013 Inactive Carafate 1 gram tablet RxNorm: 364192 1 Tablet(s) PO QID 201303/30/2013 Inactive Carafate 1 gram tablet RxNorm: 762617 1 Tablet(s) PO QID 201304/23/2013 Inactive Zithromax Z-Preston 250 mg tablet RxNorm: 350482 Tablet(s) PO zpack as directed 01/31/2013 04/12/2013 Inactive Zofran 4 mg tablet RxNorm: 399333 1 Tablet(s) PO Q6 PRN 12/0704/12/2013 Inactive Xanax 0.25 mg tablet RxNorm: 199867 Tablet(s) PO TAKE 1 TABLET BY MOUTH EVERY 4 TO 6 HOURS NEEDED 06/20/20122013 Inactive (Appended: Controlled substance eRx refill - RxReferenceNumber: [id number]|1|0|1) Xanax 0.25 mg tablet RxNorm: 952880 1 Tablet(s) PO Q4-6H q 4-6 hrs prn 06/20/2012 No Stop Date Active doxycycline monohydrate 100 mg tablet RxNorm: 5920444 1 Tablet(s) PO BID 05/17/2012 05/26/2012 Inactive doxycycline monohydrate 100 mg tablet RxNorm: 5974274 1 Tablet(s) PO BID 04/11/2012 04/20/2012 Inactive Kenalog 40 mg/mL Susp for Injection RxNorm: 9534249 1 Milliliter(s) Inj 04/11/2012 04/11/2012 Inactive metoprolol succinate ER 50 mg tablet,extended release 24 hr RxNorm: 749066 Tablet (s) PO TAKE 1 & 1/2 TABLETS BY MOUTH TWICE DAILY 02/01/2012 04/13/2013 Inactive Lipitor 40 mg tablet RxNorm: 661867 Tablet(s) PO TAKE 1 TABLET BY MOUTH EVERY DAY 02/01/2012 04/12/2013 Inactive Pradaxa 150 mg capsule RxNorm: 5709303 Capsule(s) PO 201112/03/2014 Inactive TAKE 1 CAPSULE BY MOUTH TWICE DAILY Xanax 0.25 mg tablet RxNorm: 483178 1 Tablet(s) PO Q4-6H q 4-6 hrs prn 12/28/2011 06/20/2012 Inactive metoprolol succinate ER 50 mg tablet,extended release 24 hr RxNorm: 498628 Tablet (s) PO 12/28/2011 01/31/2012 Inactive TAKE 1 & 1/2 TABLETS BY MOUTH TWICE DAILY Singulair 10 mg tablet RxNorm: 341221 Tablet(s) PO 12/28/2011 04/13/2013 Inactive TAKE ONE TABLET BY MOUTH DAILY clindamycin 150 mg capsule RxNorm: 450317 1 Capsule(s) PO QID 11/25/2011 12/01/2011 Inactive Influenza Virus Vaccine 0.5 mL RxNorm: IM 11/11/2011 11/11/2011 Inactive Pneumovax 23 25 mcg/0.5 mL Injection RxNorm: 562020 Milliliter(s) Inj 11/11/2011 11/11/2011 Inactive Biaxin 500 mg tablet RxNorm: 428630 1 Tablet(s) PO BID 201110/30/2011 Inactive Flagyl 500 mg tablet RxNorm: 570798 1 Tablet(s) PO TID 201109/03/2011 Inactive Flagyl 500 mg tablet RxNorm: 375525 1 Tablet(s) PO TID 201109/10/2011 Inactive doxycycline hyclate 100 mg tablet RxNorm: 8568306 1 Tablet(s) PO BID 09/04/2011 09/10/2011 Inactive doxycycline hyclate 100 mg tablet RxNorm: 1994877 1 Tablet(s) PO BID 09/04/2011 09/03/2011 Inactive Xopenex 1.25 mg/3 mL Neb Solution RxNorm: 407959 1 Unit(s) INH Q4 PRN 08/18/2011 12/15/2011 Inactive 1 box Xopenex 1.25 mg/3 mL Neb Solution RxNorm: 453644 1 Milliliter(s) INH Q4 PRN 08/18/2011 08/17/2011 Inactive 1 box Zithromax Z-Preston 250 mg Tab RxNorm: 682747 Tablet(s) PO UD 08/1008/11/2011 Inactive doxycycline hyclate 100 mg Tab RxNorm: 8957716 1 Tablet(s) PO BID 08/11/2011 08/11/2011 Inactive prednisone 10 mg Tab RxNorm: 145994 1 Tablet(s) PO BID q a.m. and q NOON x 5 days 08/11/2011 08/10/2011 Inactive prednisone 10 mg Tab RxNorm: 089740 1 Tablet(s) PO BID q a.m. and q NOON x 5 days 08/11/2011 08/15/2011 Inactive Kenalog 40 mg/mL Susp for Injection RxNorm: 4294354 1 Milliliter(s) Inj 08/11/2011 08/11/2011 Inactive doxycycline hyclate 100 mg Tab RxNorm: 9609692 1 Tablet(s) PO BID 08/11/2011 08/10/2011 Inactive nystatin 100,000 unit/mL Oral Susp RxNorm: 750159 6 Milliliter(s) PO QID 08/10/2011 08/16/2011 Inactive Jamie 60 mg Tab RxNorm: 474155 1 Tablet(s) PO daily 201101/23/2012 Inactive Jamie 60 mg Tab RxNorm: 868703 1 Tablet(s) PO daily 201107/27/2011 Inactive potassium chloride ER 10 mEq tablet,extended release RxNorm: 325000 1 Tablet(s) PO BID 07/27/2011 08/19/2012 Inactive Synthroid 75 mcg Tab RxNorm: 289856 Tablet(s) PO 07/06/2011 07/29/2012 Inactive one tab wednesday1/2 tab other days potassium chloride ER 10 mEq Tab RxNorm: 044923 1 Tablet(s) PO BID 07/02/2011 07/26/2011 Inactive Lasix 40 mg tablet RxNorm: 405688 1 Tablet(s) PO daily 201112/28/2011 Inactive Nexium 40 mg Capsule, delayed release RxNorm: 156508 1 Capsule(s) PO daily 06/25/2011 11/24/2011 Inactive Lexapro 10 mg Tab RxNorm: 962328 1 Tablet(s) PO daily 201107/14/2011 Inactive Carafate 100 mg/mL Oral Susp RxNorm: 226256 10 Milliliter(s) PO QID 06/25/2011 10/20/2011 Inactive dispense qs x 1 month nystatin 100,000 unit/mL Oral Susp RxNorm: 632143 3 Milliliter(s) PO QID swish, gargle, then swallow four times daily. 06/25/2011 07/14/2011 Inactive dispense qs x 10 days. Mucinex 1,200 mg 12 hr Tab RxNorm: 973857 1 Tablet(s) PO BID 07/21/2011 Inactive Lipitor 40 mg tablet RxNorm: 104748 1 Tablet(s) PO daily 201112/18/2011 Inactive lactobacillus acidophilus Cap RxNorm: 2 Capsule(s) PO BID 08/201107/14/2011 Inactive Mucinex 1,200 mg 12 hr Tab RxNorm: 222515 1 Tablet(s) PO BID 06/21/2011 Inactive lactobacillus acidophilus Cap RxNorm: 1 Capsule(s) PO BID 06/21/2011 Inactive Kenalog 40 mg/mL Susp for Injection RxNorm: 8981760 1 Milliliter(s) Inj 06/15/2011 06/15/2011 Inactive Flagyl 500 mg Tab RxNorm: 007864 1 Tablet(s) PO TID 201107/14/2011 Inactive doxycycline hyclate 100 mg Cap RxNorm: 7101944 1 Capsule(s) PO BID 06/15/2011 07/14/2011 Inactive clarithromycin 250 mg Tab RxNorm: 228396 1 Tablet(s) PO BID 07/14/2011 Inactive Xanax 0.25 mg tablet RxNorm: 272787 1 Tablet(s) PO Q4-6H q 4-6 hrs prn 05/27/2011 07/16/2011 Inactive Lasix 40 mg Tab RxNorm : 965169 3 Tablet(s) PO as directed 2 q am and 1 q noon 05/27/2011 07/01/2011 Inactive potassium chloride ER 10 mEq Tab RxNorm: 958938 1 Tablet(s) PO BID 05/27/2011 05/26/2011 Inactive KCL 10 meq RxNorm: 1 PO BID 05/27/201112/2011 Inactive potassium chloride ER 10 mEq Tab RxNorm: 901555 1 Tablet(s) PO BID 05/27/2011 06/25/2011 Inactive Pradaxa 75 mg Cap RxNorm: 0654136 2 Capsule(s) PO daily 09/29/2011 Inactive Biaxin 500 mg Tab RxNorm: 034168 1 Tablet(s) PO BID 201103/16/2011 Inactive Biaxin 500 mg Tab RxNorm: 393291 1 Tablet(s) PO BID 201107/14/2011 Inactive azithromycin 250 mg Tab RxNorm: 313985 1 Tablet(s) PO daily two by mouth daily x 3 days, then daily thereafter 02/06/2011 07/14/2011 Inactive two by mouth daily x 3 days, then daily thereafter until supply is exhausted azithromycin 250 mg Tab RxNorm: 906298 1 Tablet(s) PO daily two by mouth daily x 3 days, then daily thereafter 02/06/2011 02/05/2011 Inactive two by mouth daily x 3 days, then daily thereafter until supply is exhausted azithromycin 250 mg Tab RxNorm: 870128 1 Tablet(s) PO daily two by mouth daily x 3 days, then daily thereafter 02/06/2011 02/05/2011 Inactive two by mouth daily x 3 days, then daily thereafter until supply is exhausted Valturna 300 mg-320 mg Tab RxNorm: 0278624 Tablet(s) PO 201007/14/2011 Inactive TAKE 1 TABLET BY MOUTH EVERY DAY Kenalog 40 mg/mL Susp for Injection RxNorm: 4313327 2 Milliliter(s) Inj 11/20/2010 11/20/2010 Inactive Avelox 400 mg Tab RxNorm: 027918 1 Tablet(s) PO daily 201007/14/2011 Inactive Biaxin 500 mg Tab RxNorm: 274268 1 Tablet(s) PO BID 201011/15/2010 Inactive Pradaxa 150 mg Cap RxNorm: 1353912 1 Capsule(s) PO BID 201007/14/2011 Inactive Zyrtec oral RxNorm: 62946 oral No Start Date Active doxazosin 2 mg tablet RxNorm: 706953 1/2 Tablet(s) PO BID No Start Date 12/08/2015 Inactive Pyridium 200 mg tablet RxNorm: 5426150 1 Tablet(s) PO TID PRN No Start Date 10/28/2016 Inactive ondansetron 4 mg disintegrating tablet RxNorm: 843047 1 Tablet(s) PO Q4 PRN No Start Date 10/21/2017 Inactive Pradaxa 75 mg Cap RxNorm: 1438694 1 Capsule(s) PO daily No Start Date 05/04/2011 Inactive Singulair 10 mg tablet RxNorm: 826248 1 Tablet(s) PO daily No Start Date 07/14/2011 Inactive hydrocodone-acetaminophen 5 mg-325 mg tablet RxNorm: 860924 1 Tablet(s) PO Q6 PRN No Start Date 04/12/2013 Inactive Toprol XL 100 mg 24 hr Tab RxNorm: 073102 1 Tablet(s) PO BID No Start Date 07/14/2011 Inactive Zofran 4 mg tablet RxNorm: 898323 1 Tablet(s) PO Q6 PRN No Start Date 12/06/2012 Inactive Vitamin D2 50,000 unit capsule RxNorm: 293947 1 Capsule(s) PO QW No Start Date 05/15/2014 Inactive prednisone 10 mg tablet RxNorm: 668322 Tablet(s) PO UD No Start Date 06/15/2017 Inactive 6,5,4,3,2,1 Lipitor 40 mg Tab RxNorm: 748402 1 Tablet(s) PO daily No Start Date 06/21/2011 Inactive Trilipix 135 mg Cap RxNorm: 853868 Capsule(s) PO No Start Date 11/26/2010 Inactive Eliquis 5 mg tablet RxNorm: 3754656 1 Tablet(s) PO BID No Start Date 12/08/2015 Inactive KCL 10 meq RxNorm: 1 PO BID No Start Date 05/26/2011 Inactive Diovan 80 mg Tab RxNorm: 226347 1 Tablet(s) PO QHS No Start Date 07/14/2011 Inactive Lipitor 20 mg tablet RxNorm: 894802 1 Tablet(s) PO daily No Start Date 04/13/2013 Inactive Zithromax Z-Preston 250 mg tablet RxNorm: 335818 Tablet(s) PO No Start Date 01/30/2013 Inactive aspirin 81 mg Tab, Delayed Release RxNorm: 836560 1 Tablet(s) PO daily No Start Date 07/14/2011 Inactive prednisone 20 mg Tab RxNorm: 140714 Tablet(s) PO UD 3 tabs x 1 day, then 2 tabs daily x 2 days then 1 tab daily x 1 days, 1/2 daily x 1 day then 1/2 QOD x 2 doses then stop No Start Date 07/14/2011 Inactive Flonase 50 mcg/actuation Nasal [place] RxNorm: 4938214 2 [place] NASAL daily No Start Date 02/17/2016 Inactive hydrocodone 2.5 mg-guaifenesin 200 mg/5 mL syrup RxNorm: 026885 10 Unit Dose PO Q6 PRN No Start Date 04/25/2017 Inactive potassium chloride ER 10 mEq tablet,extended release RxNorm: 057136 1 Tablet(s) PO daily No Start Date 10/14/2016 Inactive Diovan 160 mg Tab RxNorm: 375942 1 Tablet(s) PO QHS No Start Date 12/20/2011 Inactive Lasix 40 mg Tab RxNorm : 369988 3 Tablet(s) PO as directed 2 q am and 1 q noon No Start Date 05/26/2011 Inactive metoprolol succinate ER 50 mg tablet,extended release 24 hr RxNorm: 764942 1 1 / 2 Tablet(s) PO BID No Start Date 2011 Inactive Carafate 1 gram Tab RxNorm: 051389 1 Tablet(s) PO TID No Start Date 07/14/2011 Inactive doxycycline hyclate 100 mg tablet RxNorm: 580052 1 Tablet(s) PO BID No Start Date 08/10/2016 Inactive Zithromax Z-Preston 250 mg Tab RxNorm: 379964 Oral No Start Date 08/10/2011 Inactive prednisone 20 mg Tab RxNorm: 089980 Tablet(s) PO No Start Date 04/06/2011 Inactive 3 tabs x 2 days, 2 tabs x 2 days, 1 tab x 2 days, 1/2 daily x 4 days then stop Bentyl 10 mg Cap RxNorm: 981866 1 Capsule(s) PO BID No Start Date 07/14/2011 Inactive Xarelto 15 mg tablet RxNorm: 2367376 1 Tablet(s) PO daily No Start Date 06/27/2017 Inactive Valturna 300 mg-320 mg Tab RxNorm: 8795817 1 Tablet(s) PO daily No Start Date 01/19/2011 Inactive Vitamin D 1,000 unit Tab RxNorm: 577042 1 Tablet(s) PO daily No Start Date 07/14/2011 Inactive Lexapro 10 mg Tab RxNorm: 096883 1 Tablet(s) PO daily No Start Date 04/06/2011 Inactive Synthroid 75 mcg Tab RxNorm: 369213 Tablet(s) PO No Start Date 07/05/2011 Inactive Protonix 40 mg Tab RxNorm: 393975 1 Tablet(s) PO daily No Start Date 07/14/2011 Inactive ranitidine 150 mg tablet RxNorm: 218628 1 Tablet(s) PO BID No Start Date 04/25/2017 Inactive prednisone 20 mg tablet RxNorm: 766511 Tablet(s) PO 3daily x 2days, then 2daily x2days, then 1daily x2days, then 1/2 daily x 2days then stop No Start Date 12/12/2013 Inactive Nexium 40 mg Cap RxNorm: 827556 1 Capsule(s) PO daily No Start Date 06/03/2011 Inactive Xanax 0.25 mg Tab RxNorm: 283313 1 Tablet(s) PO Q4-6H q 4-6 hrs prn No Start Date 04/06/2011 Inactive Synthroid 50 mcg Tab RxNorm: 519981 1 Tablet(s) PO daily No Start Date 07/14/2011 Inactive Pradaxa 150 mg capsule RxNorm: 1914336 1 Capsule(s) PO BID No Start Date 12/30/2011 Inactive metoprolol tartrate 25 mg tablet RxNorm: 246407 1 Tablet(s) PO TID No Start Date 12/08/2015 Inactive Singulair 5 mg Chewable Tab RxNorm: 819619 1 Tablet(s) PO every other day No Start Date 04/13/2013 Inactive Pepcid oral RxNorm: 4278 oral No Start Date 05/01/2018 Inactive Medication Administered Medication Codes Instructions Start Date Status ketorolac 60 mg/2 mL intramuscular solution RxNorm: 5782016 Millil[place] 03/21/2018 No longer Active cyanocobalamin (vit B-12) 1,000 mcg/mL injection solution RxNorm: 338181 Milliliter 09/13/2015 No longer Active Kenalog 40 mg/mL suspension for injection RxNorm: 5362923 Milliliter 03/27/2015 No longer Active Kenalog 40 mg/mL suspension for injection RxNorm: 2108628 Milliliter 12/11/2014 No longer Active Kenalog 40 mg/mL suspension for injection RxNorm: 4847185 1Milliliter 04/14/2013 No longer Active Kenalog 40 mg/mL Susp for Injection RxNorm: 6010427 1Milliliter 04/11/2012 No longer Active Influenza Virus Vaccine 0.5 mL RxNorm: 11/11/2011 No longer Active Pneumovax 23 25 mcg/0.5 mL Injection RxNorm: 177684 Milliliter 11/11/2011 No longer Active Kenalog 40 mg/mL Susp for Injection RxNorm: 1681563 1Milliliter 08/11/2011 No longer Active Kenalog 40 mg/mL Susp for Injection RxNorm: 1153860 1Milliliter 06/15/2011 No longer Active Kenalog 40 mg/mL Susp for Injection RxNorm: 6436424 2Milliliter 11/20/2010 No longer Active Immunizations Vaccine [...] Assessments Condition Codes Effective Dates Encounter for general adult medical examination with [...] medications ICD-9: V58.69 04/12/2013 ESSENTIAL HYPERTENSION SNOMED: 88044213 ICD-9: 401.9 04/12/2013 ATRIAL FIBRILLATION ICD-9: 427.31 [...] Knee pain, acute ICD-9: 719.46 2011 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 Encounter for general adult medical examination with abnormal findings ICD-9: V70.0 01/21/2011 Actinic keratosis ICD-9: 702.0 2010 DEPRESSIVE DISORDER NEC ICD-9: 311 2010 Reason For Visit Reason For Visit Effective Dates Notes Annual Medicare Wellness Exam 05/02/2018 pain 03/21/2018 [...] Item Item Code Result Date Comp Metabolic Jsz338 NA 139 mEq/L 04/26/2018 Comp Metabolic Hqa308 K 4.2 mEq/L 04/26/2018 Comp Metabolic Wqw983 CL 103 mEq/L 04/26/2018 Comp Metabolic Hel150 CO2 30.0 mEq/L 04/26/2018 Comp Metabolic Thk640 ANION GAP 10 04/26/2018 Comp Metabolic Mnu918 GLUCOSE 105 mg/dL 04/26/2018 Comp Metabolic Xmb096 Creat 1.0 mg/dL 04/26/2018 Comp Metabolic Uvu267 eGFR 62 ml/min/1.73m2 04/26/2018 Comp Metabolic Ykm341 BUN 13 mg/dL 04/26/2018 Comp Metabolic Ccy089 B/C Ratio 13.7 Ratio 04/26/2018 Comp Metabolic Byf922 CALCIUM 9.4 mg/dL 04/26/2018 Comp Metabolic Oqw091 ALK PHOS 116 U/L 04/26/2018 Comp Metabolic Ugl609 AST(SGOT) 13 U/L 04/26/2018 Comp Metabolic Owj343 ALT(SGPT) 12 U/L 04/26/2018 Comp Metabolic Toc023 BILI T 0.6 mg/dL 04/26/2018 Comp Metabolic Trh778 ALBUMIN 3.8 g/dL 04/26/2018 Comp Metabolic Tbi650 TPRO 6.4 g/dL 04/26/2018 Comp Metabolic Jfa368 GLOB 2.6 g/dL 04/26/2018 Comp Metabolic Aqf810 A/G Ratio 1.4 Ratio 04/26/2018 Comp Metabolic Qms700 Osmo 278 mOsmo 04/26/2018 Lipid Ord30 CHOL [...] 24.5 % 04/26/2018 Cbc With Differential Ord2 [place]% 6.7 % 04/26/2018 Cbc With Differential Ord2 [...] 2.47 K/ul 04/26/2018 Cbc With Differential Ord2 [place] ABS# 0.7 K/ul 04/26/2018 Cbc With Differential [...] Ord30 C/HDL 3.5 Ratio 03/15/2017 Comp Metabolic Rgo853 NA 140 mEq/L 03/15/2017 Comp Metabolic Wdn055 K 3.6 mEq/L 03/15/2017 Comp Metabolic Uit799 CL 104 mEq/L 03/15/2017 Comp Metabolic Erc467 CO2 27.0 mEq/L 03/15/2017 Comp Metabolic Jfv699 ANION GAP 13 03/15/2017 Comp Metabolic Rkx755 GLUCOSE 93 mg/dL 03/15/2017 Comp Metabolic Iyj249 Creat 0.9 mg/dL 03/15/2017 Comp Metabolic Ysx714 eGFR 68 ml/min/1.73m2 03/15/2017 Comp Metabolic Tto714 BUN 10 mg/dL 03/15/2017 Comp Metabolic Aul357 B/C Ratio 11.4 Ratio 03/15/2017 Comp Metabolic Mni615 CALCIUM 9.4 mg/dL 03/15/2017 Comp Metabolic Zou339 ALK PHOS 84 U/L 03/15/2017 Comp Metabolic Uhb711 AST(SGOT) 14 U/L 03/15/2017 Comp Metabolic Leg010 ALT(SGPT) 15 U/L 03/15/2017 Comp Metabolic Ozi898 BILI T 0.5 mg/dL 03/15/2017 Comp Metabolic Alb397 ALBUMIN 3.6 g/dL 03/15/2017 Comp Metabolic Nas951 TPRO 6.0 g/dL 03/15/2017 Comp Metabolic Nvo416 GLOB 2.4 g/dL 03/15/2017 Comp Metabolic Xbc217 A/G Ratio 1.5 Ratio 03/15/2017 Comp Metabolic Zmu023 Osmo 278 mOsmo 03/15/2017 Magnesium Ord90 Mag [...] 30.4 pg 03/15/2017 Cbc With Differential Ord2 [place]% 6.7 % 03/15/2017 Cbc With Differential Ord2 [...] 2.24 K/ul 03/15/2017 Cbc With Differential Ord2 [place] ABS# 0.5 K/ul 03/15/2017 Cbc With Differential [...] Ord15 CALCIUM 9.4 mg/dL 01/15/2017 Comp Metabolic Pir731 NA 137 mEq/L 12/31/2016 Comp Metabolic Aiy353 K 3.2 mEq/L 12/31/2016 Comp Metabolic Ipn089 CL 95 mEq/L 12/31/2016 Comp Metabolic Tbe879 CO2 30.0 mEq/L 12/31/2016 Comp Metabolic Dpr533 ANION GAP 15 12/31/2016 Comp Metabolic Qdw311 GLUCOSE 111 mg/dL 12/31/2016 Comp Metabolic Rrx522 Creat 1.3 mg/dL 12/31/2016 Comp Metabolic Qbq978 eGFR 45 ml/min/1.73m2 12/31/2016 Comp Metabolic Mak148 BUN 14 mg/dL 12/31/2016 Comp Metabolic Tqz500 B/C Ratio 11.1 Ratio 12/31/2016 Comp Metabolic Ncs908 CALCIUM 10.0 mg/dL 12/31/2016 Comp Metabolic Slk342 ALK PHOS 61 U/L 12/31/2016 Comp Metabolic Xgq502 AST(SGOT) 14 U/L 12/31/2016 Comp Metabolic Ofd617 ALT(SGPT) 13 U/L 12/31/2016 Comp Metabolic Idz225 BILI T 0.9 mg/dL 12/31/2016 Comp Metabolic Yjv102 ALBUMIN 3.8 g/dL 12/31/2016 Comp Metabolic Fwj308 TPRO 6.7 g/dL 12/31/2016 Comp Metabolic Nom394 GLOB 2.9 g/dL 12/31/2016 Comp Metabolic Fyw175 A/G Ratio 1.3 Ratio 12/31/2016 Comp Metabolic Kof247 Osmo 275 mOsmo 12/31/2016 Cbc With Differential [...] 30.3 pg 12/31/2016 Cbc With Differential Ord2 [place]% 11.2 % 12/31/2016 Cbc With Differential Ord2 [...] 1.89 K/ul 12/31/2016 Cbc With Differential Ord2 [place] ABS# 0.7 K/ul 12/31/2016 Cbc With Differential Ord2 Eos ABS# 0.1 K/ul 12/31/2016 Cbc With Differential Ord2 Baso ABS# 0.1 K/ul 12/31/2016 Urine Culture Ucult Complete >100,000 col/ml aerobic growth sent to ref lab 10/30/2016 Tsh Ord6 hTSH II 2.88 uIU/mL 09/15/2016 Comp Metabolic Kxn272 NA 139 mEq/L 09/15/2016 Comp Metabolic Pjj496 K 4.0 mEq/L 09/15/2016 Comp Metabolic Jqa509 CL 104 mEq/L 09/15/2016 Comp Metabolic Zud589 CO2 27.0 mEq/L 09/15/2016 Comp Metabolic Wki009 ANION GAP 12 09/15/2016 Comp Metabolic Ndv230 GLUCOSE 105 mg/dL 09/15/2016 Comp Metabolic Clw307 Creat 0.9 mg/dL 09/15/2016 Comp Metabolic Xad122 eGFR 67 ml/min/1.73m2 09/15/2016 Comp Metabolic Jyb974 BUN 14 mg/dL 09/15/2016 Comp Metabolic Yuv363 B/C Ratio 15.7 Ratio 09/15/2016 Comp Metabolic Qgn701 CALCIUM 9.0 mg/dL 09/15/2016 Comp Metabolic Ppl567 ALK PHOS 85 U/L 09/15/2016 Comp Metabolic Hob631 AST(SGOT) 12 U/L 09/15/2016 Comp Metabolic Yxi577 ALT(SGPT) 11 U/L 09/15/2016 Comp Metabolic Hpe532 BILI T 0.5 mg/dL 09/15/2016 Comp Metabolic Ssw037 ALBUMIN 3.4 g/dL 09/15/2016 Comp Metabolic Xuy834 TPRO 5.8 g/dL 09/15/2016 Comp Metabolic Yyj054 GLOB 2.4 g/dL 09/15/2016 Comp Metabolic Dja589 A/G Ratio 1.4 Ratio 09/15/2016 Comp Metabolic Dbi612 Osmo 278 mOsmo 09/15/2016 Vitamin D 25 Oh Rht0686 VITAMIN D, 25 HYDROXY 25.95 ng/mL Lipid [...] 9.2 mg/dL 01/13/2016 Vitamin D 25 Oh [id number] VITAMIN D, 25 HYDROXY 38.03 ng/mL Comp Metabolic Cbc261 NA 139 mEq/L 11/28/2015 Comp Metabolic Pjn571 K 4.0 mEq/L 11/28/2015 Comp Metabolic Qqu700 CL 105 mEq/L 11/28/2015 Comp Metabolic Coe410 CO2 25.0 mEq/L 11/28/2015 Comp Metabolic Jxp182 ANION GAP 13 11/28/2015 Comp Metabolic Zwx597 GLUCOSE 100 mg/dL 11/28/2015 Comp Metabolic Wei986 Creat 1.1 mg/dL 11/28/2015 Comp Metabolic Pkn886 eGFR 55 ml/min/1.73m2 11/28/2015 Comp Metabolic Bkb260 BUN 13 mg/dL 11/28/2015 Comp Metabolic Sjc251 B/C Ratio 12.3 Ratio 11/28/2015 Comp Metabolic Gym788 CALCIUM 9.2 mg/dL 11/28/2015 Comp Metabolic Bke255 ALK PHOS 85 U/L 11/28/2015 Comp Metabolic Krl058 AST(SGOT) 15 U/L 11/28/2015 Comp Metabolic Iqb014 ALT(SGPT) 15 U/L 11/28/2015 Comp Metabolic Wfy825 BILI T 0.5 mg/dL 11/28/2015 Comp Metabolic Lys571 ALBUMIN 3.7 g/dL 11/28/2015 Comp Metabolic Wug119 TPRO 6.4 g/dL 11/28/2015 Comp Metabolic Sgj832 GLOB 2.7 g/dL 11/28/2015 Comp Metabolic Qed030 A/G Ratio 1.4 Ratio 11/28/2015 Comp Metabolic Dwf273 Osmo 278 mOsmo 11/28/2015 Tsh Ord6 hTSH II 1.98 uIU/mL 11/28/2015 Free T4 Hzb644 FREE T4 1.04 ng/dL 11/28/2015 Cbc With [...] 30.9 pg 11/28/2015 Cbc With Differential Ord2 [place]% 6.7 % 11/28/2015 Cbc With Differential Ord2 [...] 2.19 K/ul 11/28/2015 Cbc With Differential Ord2 [place] ABS# 0.6 K/ul 11/28/2015 Cbc With Differential Ord2 Eos ABS# 0.1 K/ul 11/28/2015 Cbc With Differential Ord2 Baso ABS# 0.1 K/ul 11/28/2015 Comp Metabolic Njl280 NA 135 mEq/L 10/15/2015 Comp Metabolic Aca248 K 3.5 mEq/L 10/15/2015 Comp Metabolic Jkg400 CL 100 mEq/L 10/15/2015 Comp Metabolic Ygn710 CO2 29.0 mEq/L 10/15/2015 Comp Metabolic Yvg851 ANION GAP 10 10/15/2015 Comp Metabolic Bmz559 GLUCOSE 88 mg/dL 10/15/2015 Comp Metabolic Nvp395 Creat 0.9 mg/dL 10/15/2015 Comp Metabolic Dvv224 eGFR 67 ml/min/1.73m2 10/15/2015 Comp Metabolic Ldb421 BUN 16 mg/dL 10/15/2015 Comp Metabolic Leg433 B/C Ratio 17.8 Ratio 10/15/2015 Comp Metabolic Osw252 CALCIUM 9.4 mg/dL 10/15/2015 Comp Metabolic Gny995 ALK PHOS 96 U/L 10/15/2015 Comp Metabolic Iwn294 AST(SGOT) 15 U/L 10/15/2015 Comp Metabolic Tkz672 ALT(SGPT) -125 U/L 10/15/2015 Comp Metabolic Wmr559 BILI T 0.4 mg/dL 10/15/2015 Comp Metabolic Llp342 ALBUMIN 4.2 g/dL 10/15/2015 Comp Metabolic Acy901 TPRO 7.2 g/dL 10/15/2015 Comp Metabolic Ept700 GLOB 3.1 g/dL 10/15/2015 Comp Metabolic Kio370 A/G Ratio 1.4 Ratio 10/15/2015 Comp Metabolic Fyq838 Osmo 271 mOsmo 10/15/2015 Comp Metabolic Bae063 NA 135 mEq/L 10/15/2015 Comp Metabolic Tcb761 K 3.5 mEq/L 10/15/2015 Comp Metabolic Cke821 CL 100 mEq/L 10/15/2015 Comp Metabolic Wzy200 CO2 29.0 mEq/L 10/15/2015 Comp Metabolic Rfl409 ANION GAP 10 10/15/2015 Comp Metabolic Deg253 GLUCOSE 88 mg/dL 10/15/2015 Comp Metabolic Skk634 Creat 0.9 mg/dL 10/15/2015 Comp Metabolic Dpb058 eGFR 67 ml/min/1.73m2 10/15/2015 Comp Metabolic Oxa618 BUN 16 mg/dL 10/15/2015 Comp Metabolic Gwa202 B/C Ratio 17.8 Ratio 10/15/2015 Comp Metabolic Gdy450 CALCIUM 9.4 mg/dL 10/15/2015 Comp Metabolic Evf672 ALK PHOS 96 U/L 10/15/2015 Comp Metabolic Stq044 AST(SGOT) 15 U/L 10/15/2015 Comp Metabolic Pfh589 ALT(SGPT) 14 U/L 10/15/2015 Comp Metabolic Hle395 BILI T 0.4 mg/dL 10/15/2015 Comp Metabolic Wsr013 ALBUMIN 4.2 g/dL 10/15/2015 Comp Metabolic Dva696 TPRO 7.2 g/dL 10/15/2015 Comp Metabolic Ogu743 GLOB 3.1 g/dL 10/15/2015 Comp Metabolic Yle315 A/G Ratio 1.4 Ratio 10/15/2015 Comp Metabolic Ysq758 Osmo 271 mOsmo 10/15/2015 Magnesium Ord90 Mag 2.2 mg/dL 10/15/2015 Magnesium Ord90 Mag 1.9 mg/dL 09/05/2015 Comp Metabolic Tkk320 NA 138 mEq/L 09/05/2015 Comp Metabolic Wka538 K 3.7 mEq/L 09/05/2015 Comp Metabolic Wjc149 CL 99 mEq/L 09/05/2015 Comp Metabolic Hgi418 CO2 30.0 mEq/L 09/05/2015 Comp Metabolic Yvl477 ANION GAP 13 09/05/2015 Comp Metabolic Jcw973 GLUCOSE 97 mg/dL 09/05/2015 Comp Metabolic Wrh122 Creat 1.1 mg/dL 09/05/2015 Comp Metabolic Fjz605 eGFR 54 ml/min/1.73m2 09/05/2015 Comp Metabolic Qxj902 BUN 18 mg/dL 09/05/2015 Comp Metabolic Ruq552 B/C Ratio 16.7 Ratio 09/05/2015 Comp Metabolic Wqc619 CALCIUM 9.6 mg/dL 09/05/2015 Comp Metabolic Yfh333 ALK PHOS 96 U/L 09/05/2015 Comp Metabolic Jpt997 AST(SGOT) 15 U/L 09/05/2015 Comp Metabolic Wzw332 ALT(SGPT) 14 U/L 09/05/2015 Comp Metabolic Dvx159 BILI T 0.5 mg/dL 09/05/2015 Comp Metabolic Wsg918 ALBUMIN 4.1 g/dL 09/05/2015 Comp Metabolic Dbn273 TPRO 7.0 g/dL 09/05/2015 Comp Metabolic Qvd069 GLOB 3.0 g/dL 09/05/2015 Comp Metabolic Yty816 A/G Ratio 1.4 Ratio 09/05/2015 Comp Metabolic Olq297 Osmo 277 mOsmo 09/05/2015 Vitamin D 25 Oh Nwa2033 VITAMIN D, 25 HYDROXY 22.39 ng/mL Magnesium Ord90 Mag 2.0 mg/dL 06/11/2015 Tsh Ord6 hTSH II 3.52 uIU/mL 06/11/2015 Comp Metabolic Bxq607 NA 135 mEq/L 06/11/2015 Comp Metabolic Ull128 K 4.3 mEq/L 06/11/2015 Comp Metabolic Ssu752 CL 103 mEq/L 06/11/2015 Comp Metabolic Ete324 CO2 25.0 mEq/L 06/11/2015 Comp Metabolic Uop324 ANION GAP 11 06/11/2015 Comp Metabolic Dnm107 GLUCOSE 75 mg/dL 06/11/2015 Comp Metabolic Smh032 Creat 0.9 mg/dL 06/11/2015 Comp Metabolic Bfh930 eGFR 69 ml/min/1.73m2 06/11/2015 Comp Metabolic Xvr512 BUN 22 mg/dL 06/11/2015 Comp Metabolic Ljv355 B/C Ratio 25.3 Ratio 06/11/2015 Comp Metabolic Say028 CALCIUM 9.2 mg/dL 06/11/2015 Comp Metabolic Aty981 ALK PHOS 88 U/L 06/11/2015 Comp Metabolic Gig671 AST(SGOT) 13 U/L 06/11/2015 Comp Metabolic Ffy538 ALT(SGPT) 15 U/L 06/11/2015 Comp Metabolic Bwf634 BILI T 0.4 mg/dL 06/11/2015 Comp Metabolic Aei948 ALBUMIN 3.7 g/dL 06/11/2015 Comp Metabolic Tam130 TPRO 6.6 g/dL 06/11/2015 Comp Metabolic Qzx536 GLOB 2.9 g/dL 06/11/2015 Comp Metabolic Wzt356 A/G Ratio 1.3 Ratio 06/11/2015 Comp Metabolic Bde825 Osmo 272 mOsmo 06/11/2015 Free T4 Bzz575 FREE T4 0.95 ng/dL 06/11/2015 Cbc With [...] 31.3 pg 06/11/2015 Cbc With Differential Ord2 [place]% 7.4 % 06/11/2015 Cbc With Differential Ord2 [...] 2.57 K/ul 06/11/2015 Cbc With Differential Ord2 [place] ABS# 0.9 K/ul 06/11/2015 Cbc With Differential [...] 13.8 % 11/16/2014 Vitamin D 25 Oh Lqs1759 VITAMIN D, 25 HYDROXY 22.85 ng/mL Lipid Ord30 CHOL 206 mg/dL 11/16/2014 Lipid Ord30 HDL 49.0 mg/dl 11/16/2014 Lipid Ord30 TRIG 104 mg/dL 11/16/2014 Lipid Ord30 LDL 136 mg/dL 11/16/2014 Lipid Ord30 C/HDL 4.2 Ratio 11/16/2014 Tsh Ord6 hTSH II 2.05 uIU/mL 11/16/2014 Comp Metabolic Vkd171 NA 138 mEq/L 11/16/2014 Comp Metabolic Yye146 K 4.0 mEq/L 11/16/2014 Comp Metabolic Iva756 CL 104 mEq/L 11/16/2014 Comp Metabolic Qwo641 CO2 27.0 mEq/L 11/16/2014 Comp Metabolic Sci703 ANION GAP 11 11/16/2014 Comp Metabolic Cdh140 GLUCOSE 94 mg/dL 11/16/2014 Comp Metabolic Gmi678 Creat 0.9 mg/dL 11/16/2014 Comp Metabolic Lqx451 eGFR 64 ml/min/1.73m2 11/16/2014 Comp Metabolic Bvz206 BUN 12 mg/dL 11/16/2014 Comp Metabolic Bex256 B/C Ratio 12.9 Ratio 11/16/2014 Comp Metabolic Gkl254 CALCIUM 9.4 mg/dL 11/16/2014 Comp Metabolic Usi360 ALK PHOS 88 U/L 11/16/2014 Comp Metabolic Cot318 AST(SGOT) 14 U/L 11/16/2014 Comp Metabolic Okt259 ALT(SGPT) 12 U/L 11/16/2014 Comp Metabolic Bwq517 BILI T 0.6 mg/dL 11/16/2014 Comp Metabolic Ujy845 ALBUMIN 3.7 g/dL 11/16/2014 Comp Metabolic Gdu707 TPRO 6.3 g/dL 11/16/2014 Comp Metabolic Vuj763 GLOB 2.6 g/dL 11/16/2014 Comp Metabolic Iwe919 A/G Ratio 1.4 Ratio 11/16/2014 Comp Metabolic Yfe268 Osmo 275 mOsmo 11/16/2014 %Hba1C Qvy202 % HbA1c 59707-1 5.7 % 11/16/2014 %Hba1C Jij161 Gluc Ave 117 mg/dL 11/16/2014 GFR CALC 4916399 GFR AA >60 ML/MIN 04/12/2013 GFR CALC 6983204 GFR NON-AA >60 ML/MIN 04/12/2013 TSH 9391436 TSH 2.194 uIU/ML 04/12/2013 VIT B 12 9646749 VIT B 12 415 PG/ML 04/12/2013 CBC 5361109 WBC 8.8 10e9/L 04/12/2013 CBC 0765827 RBC 4.59 10e12/L 04/12/2013 CBC 8915233 HGB 14.3 g/dL 04/12/2013 CBC 5736168 HCT DET 42.4 % 04/12/2013 CBC 5933546 MCV 92.4 fL 04/12/2013 CBC 1367231 MCH 31.2 pg 04/12/2013 CBC 5764929 MCHC 33.7 g/dL 04/12/2013 CBC 2805778 PLT 213 10e9/L 04/12/2013 CBC 2983319 MPV 12.8 fL 04/12/2013 CBC 1004064 LULU % 61.8 % 04/12/2013 CBC 9848524 LY % 29.2 % 04/12/2013 CBC 5437662 MON % 7.2 % 04/12/2013 CBC 0434358 EOS % 1.3 % 04/12/2013 CBC 8390933 BASO % 0.5 % 04/12/2013 CBC 1468035 RDW 12.6 % 04/12/2013 CBC 2153228 ABS LULU 5.44 10e9/L 04/12/2013 CBC 0797028 ABS LYMPH 2.57 10e9/L 04/12/2013 CBC 8616942 ABS MONO 0.63 10e9/L 04/12/2013 CBC 1288277 ABS EOS 0.11 10e9/L 04/12/2013 CBC 5504449 ABS BASO 0.04 10e9/L 04/12/2013 CBC 3805709 RDW-SD 41.3 fL 04/12/2013 FREE T4 8912760 FREE T4 1.09 NG/DL 04/12/2013 A1C HPLC 2818821 A1C HPLC 94845-1 5.4 % 04/12/2013 CHEM 14 0105464 AST 12 U/L 04/12/2013 CHEM 14 3357619 ALT 11 IU/L 04/12/2013 CHEM 14 1173490 BUN 14 MG/DL 04/12/2013 CHEM 14 1193336 ALBUMIN 4.1 GM/DL 04/12/2013 CHEM 14 9361043 CHLORIDE 105 MMOL/L 04/12/2013 CHEM 14 6610602 BILI TOT 0.6 MG/DL 04/12/2013 CHEM 14 5459428 ALK PHOS 81 U/L 04/12/2013 CHEM 14 7963964 SODIUM 138 MMOL/L 04/12/2013 CHEM 14 4746242 CREATININE 0.86 MG/DL 04/12/2013 CHEM 14 1324181 CALCIUM 9.8 MG/DL 04/12/2013 CHEM 14 9563488 POTASSIUM 4.1 MMOL/L 04/12/2013 CHEM 14 0567143 PROT TOT 6.6 GM/DL 04/12/2013 CHEM 14 4667661 GLUCOSE 112 MG/DL 04/12/2013 CHEM 14 4563800 BICARB 27 MMOL/L 04/12/2013 CHEM 14 1482359 ANION GAP 6 MEQ/L 04/12/2013 LIPID GRP HDL TEST 55 MG/DL 04/12/2013 LIPID GRP TRIG 107 MG/DL 04/12/2013 LIPID GRP TEST LDL 193 MG/DL 04/12/2013 LIPID GRP CHOL 269 MG/DL 04/12/2013 LIPID GRP RCHOL/HDL 4.89 RATIO 04/12/2013 NICOT QN S 8151945 NICOTIN S < 2.0 NG/ML 03/07/2012 NICOT QN S 9966927 XCOTININ S < 2.0 NG/ML 03/07/2012 CBC 6907591 WBC 8.1 10e9/L 03/02/2012 CBC 4506795 RBC 4.44 10e12/L 03/02/2012 CBC 3511385 HGB 13.8 g/dL 03/02/2012 CBC 6426319 HCT DET 41.3 % 03/02/2012 CBC 9586548 MCV 93.0 fL 03/02/2012 CBC 8294672 MCH 31.1 pg 03/02/2012 CBC 6854925 MCHC 33.4 g/dL 03/02/2012 CBC 6113632 PLT 188 10e9/L 03/02/2012 CBC 8511201 MPV 14.3 fL 03/02/2012 CBC 4341039 LULU % 61.5 % 03/02/2012 CBC 8318476 LY % 28.8 % 03/02/2012 CBC 7604333 MON % 8.0 % 03/02/2012 CBC 7519292 EOS % 1.1 % 03/02/2012 CBC 9268205 BASO % 0.6 % 03/02/2012 CBC 1808754 RDW 14.0 % 03/02/2012 CBC 3434872 ABS LULU 4.98 10e9/L 03/02/2012 CBC 3195362 ABS LYMPH 2.33 10e9/L 03/02/2012 CBC 0366875 ABS MONO 0.65 10e9/L 03/02/2012 CBC 2495735 ABS EOS 0.09 10e9/L 03/02/2012 CBC 1360117 ABS BASO 0.05 10e9/L 03/02/2012 CBC 5580224 RDW-SD 46.3 fL 03/02/2012 LIPID GRP HDL TEST 37 MG/DL 03/02/2012 LIPID GRP TRIG 136 MG/DL 03/02/2012 LIPID GRP TEST LDL 106 MG/DL 03/02/2012 LIPID GRP CHOL 170 MG/DL 03/02/2012 LIPID GRP RCHOL/HDL 4.59 RATIO 03/02/2012 GFR CALC 4939736 GFR AA >60 ML/MIN 03/02/2012 GFR CALC 2895240 GFR NON-AA >60 ML/MIN 03/02/2012 FREE T4 7782989 FREE T4 1.09 NG/DL 03/02/2012 A1C HPLC 6429679 A1C HPLC 49017-9 5.4 % 03/02/2012 CHEM 14 6624113 AST 17 U/L 03/02/2012 CHEM 14 9968064 ALT 22 IU/L 03/02/2012 CHEM 14 1462025 BUN 15 MG/DL 03/02/2012 CHEM 14 4234741 ALBUMIN 4.0 GM/DL 03/02/2012 CHEM 14 9127298 CHLORIDE 107 MMOL/L 03/02/2012 CHEM 14 9672224 BILI TOT 0.4 MG/DL 03/02/2012 CHEM 14 6854845 ALK PHOS 83 U/L 03/02/2012 CHEM 14 3843721 SODIUM 141 MMOL/L 03/02/2012 CHEM 14 6559889 CREATININE 0.86 MG/DL 03/02/2012 CHEM 14 8827515 CALCIUM 9.5 MG/DL 03/02/2012 CHEM 14 7269479 POTASSIUM 4.0 MMOL/L 03/02/2012 CHEM 14 3713447 PROT TOT 6.6 GM/DL 03/02/2012 CHEM 14 4421083 GLUCOSE 102 MG/DL 03/02/2012 CHEM 14 8835744 BICARB 28 MMOL/L 03/02/2012 CHEM 14 4030903 ANION GAP 6 MEQ/L 03/02/2012 TSH 6307583 TSH 2.320 uIU/ML 03/02/2012 GFR CALC 7999993 GFR AA >60 ML/MIN 07/03/2011 GFR CALC 6470337 GFR NON-AA 54.0L ML/MIN 07/03/2011 CHEM 14 2016770 AST 15 U/L 07/03/2011 CHEM 14 3814117 ALT 30 IU/L 07/03/2011 CHEM 14 9978347 BUN 19 MG/DL 07/03/2011 CHEM 14 1736105 ALBUMIN 4.2 GM/DL 07/03/2011 CHEM 14 5363627 CHLORIDE 100 MMOL/L 07/03/2011 CHEM 14 4772310 BILI TOT 0.8 MG/DL 07/03/2011 CHEM 14 6172628 ALK PHOS 74 U/L 07/03/2011 CHEM 14 5304349 SODIUM 137 MMOL/L 07/03/2011 CHEM 14 7776890 CREATININE 1.03 MG/DL 07/03/2011 CHEM 14 1055862 CALCIUM 9.6 MG/DL 07/03/2011 CHEM 14 3273205 POTASSIUM 4.4 MMOL/L 07/03/2011 CHEM 14 6209227 PROT TOT 6.7 GM/DL 07/03/2011 CHEM 14 5879920 GLUCOSE 106 MG/DL 07/03/2011 CHEM 14 8294851 BICARB 28 MMOL/L 07/03/2011 CHEM 14 4883248 ANION GAP 9 MEQ/L 07/03/2011 URINALYSIS NONAUTO W/O SCOPE 83077 Specific [place] 1.010 DateTime(Free Text in Aprima) URINALYSIS NONAUTO W/O SCOPE 32370 PH 5 DateTime(Free Text in Aprima) URINALYSIS NONAUTO W/O SCOPE 88723 GLUCOSE neg DateTime( Free Text in Aprima) URINALYSIS NONAUTO W/O SCOPE 34945 Protein neg DateTime( Free Text in Aprima) URINALYSIS NONAUTO W/O SCOPE 56200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
--- OUTSIDE RECORDS SUMMARY | 2018-06-03 07:37 | XMS REPORT | CCD ---
Author Author [facility] Address [address] [place] [address] Phone Care Team Providers Care Senior Design Engineering Specialist Name Role Phone PP Unavailable CCM Unavailable Summary Purpose Interface Exchange Insurance Providers Payer name Policy type / Coverage type Covered democrat ID Effective Begin Date Effective End Date WPS Medicare Part B Medicare Part B [id number] 2017 Unknown [employer] Medicare Part B [id number] Unknown Family history Father Diagnosis Age At Onset No Family Disease Entered N/A Runs in the family Diagnosis Age At Onset Diabetes Unknown Mother Diagnosis Age At Onset No Family Disease Entered N/A Social History Social History Element Codes Description Effective Dates Employment Unknown 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 03/17/2011 Active Obesity ICD-9: 278.00 [...] chloride ER 10 mEq tablet,extended release RxNorm: 887599 1 Tablet(s) TAKE 1 CAPSULES BY MOUTH TWICE DAILY 05/02/2018 No Stop Date Active doxycycline hyclate 100 mg tablet RxNorm: 8281360 1 Tablet(s) PO BID 04/01/2018 03/31/2018 Inactive doxycycline hyclate 100 mg tablet RxNorm: 9890496 1 Tablet(s) PO BID 04/01/2018 04/10/2018 Inactive ketorolac 60 mg/2 mL intramuscular solution RxNorm: 8949575 Milliliter(s) IM 03/21/2018 03/21/2018 Inactive Voltaren 1 % topical gel RxNorm: 739611 4 Gram(s) TOP QID 03/1103/10/2018 Inactive Voltaren 1 % topical gel RxNorm: 791074 4 Gram(s) TOP QID 03/1104/09/2018 Inactive Xanax 0.25 mg tablet RxNorm: 388143 Tablet(s) PO TAKE ONE TABLET BY MOUTH EVERY 4 TO 6 HOURS NEEDED 03/09/20182018 Active potassium chloride ER 10 mEq tablet,extended release RxNorm: 996255 TAKE 2 CAPSULES BY MOUTH TWICE DAILY 02/28/2018 05/01/2018 Inactive Levaquin 500 mg tablet RxNorm: 273021 1 Tablet(s) PO daily 12/201701/31/2018 Inactive Macrobid 100 mg capsule RxNorm: 599117 1 Capsule(s) PO BID 01/06/2018 Inactive Macrobid 100 mg capsule RxNorm: 735372 1 Capsule(s) PO BID 12/30/2017 Inactive ondansetron 4 mg disintegrating tablet RxNorm: 918269 1 Tablet(s) PO Q4 PRN 10/22/2017 No Stop Date Active Xanax 0.25 mg tablet RxNorm: 525522 Tablet(s) PO TAKE ONE TABLET BY MOUTH EVERY 4 TO 6 HOURS NEEDED 07/29/20172017 Inactive Levaquin 500 mg tablet RxNorm: 690591 1 Tablet(s) PO daily 07/14/2017 Inactive Levaquin 500 mg tablet RxNorm: 812888 1 Tablet(s) PO daily 07/21/2017 Inactive Xarelto 20 mg tablet RxNorm: 2037332 1 Tablet(s) PO daily 06/2812/24/2017 Inactive Xarelto 20 mg tablet RxNorm: 1635435 1 Tablet(s) PO daily 06/2806/27/2017 Inactive potassium chloride ER 10 mEq tablet,extended release RxNorm: 364861 2 Capsule(s) PO BID 06/28/2017 12/24/2017 Inactive potassium chloride ER 10 mEq tablet,extended release RxNorm: 962508 2 Capsule(s) PO BID 06/28/2017 06/27/2017 Inactive prednisone 10 mg tablet RxNorm: 325461 Tablet(s) PO UD 201703/20/2018 Inactive 6,5,4,3,2,1 Vitamin D2 50,000 unit capsule RxNorm: 468629 1 Capsule(s) PO QW 04/26/2017 07/24/2017 Inactive Lexapro 10 mg tablet RxNorm: 791835 1 Tablet(s) PO QHS 201601/11/2017 Inactive Lexapro 10 mg tablet RxNorm: 286687 1 Tablet(s) PO QHS 201604/25/2017 Inactive famotidine 20 mg tablet RxNorm: 756895 1 Tablet(s) PO BID 01/0601/05/2017 Inactive famotidine 20 mg tablet RxNorm: 669692 1 Tablet(s) PO BID 01/0604/25/2017 Inactive doxazosin 2 mg tablet RxNorm: 910691 TAKE ONE-HALF TABLET BY MOUTH TWICE DAILY 12/17/2016 04/25/2017 Inactive Xanax 0.25 mg tablet RxNorm: 835875 Tablet(s) PO TAKE ONE TABLET BY MOUTH EVERY 4 TO 6 HOURS NEEDED 11/12/20162016 Inactive Xanax 0.25 mg tablet RxNorm: 117966 Tablet(s) PO TAKE ONE TABLET BY MOUTH EVERY 4 TO 6 HOURS NEEDED 11/12/20162016 Inactive Levaquin 500 mg tablet RxNorm: 721393 1 Tablet(s) PO daily 10/28/2016 Inactive Levaquin 500 mg tablet RxNorm: 745095 1 Tablet(s) PO daily 11/04/2016 Inactive Pyridium 200 mg tablet RxNorm: 2684788 1 Tablet(s) PO TID PRN 10/29/2016 04/25/2017 Inactive potassium chloride ER 10 mEq tablet,extended release RxNorm: 884728 2 Capsule(s) PO BID 10/20/2016 02/16/2017 Inactive potassium chloride ER 10 mEq tablet,extended release RxNorm: 192199 2 Capsule(s) PO BID 10/16/2016 10/19/2016 Inactive potassium chloride ER 10 mEq tablet,extended release RxNorm: 250864 1 Capsule(s) PO daily 10/15/2016 10/15/2016 Inactive potassium chloride 40 mEq/15 mL oral liquid RxNorm: 325349 7.5 Milliliter(s) PO BID 10/05/2016 10/11/2016 Inactive potassium chloride 40 mEq/15 mL oral liquid RxNorm: 416642 7.5 Milliliter(s) PO BID 10/05/2016 10/04/2016 Inactive potassium chloride 40 mEq/15 mL oral liquid RxNorm: 600122 7.5 Milliliter(s) PO BID 10/05/2016 10/04/2016 Inactive doxycycline hyclate 100 mg tablet RxNorm: 374532 1 Tablet(s) PO BID 09/30/2016 10/09/2016 Inactive Vitamin D2 50,000 unit capsule RxNorm: 633743 1 Capsule(s) PO QW 09/15/2016 09/14/2016 Inactive Vitamin D2 50,000 unit capsule RxNorm: 315465 1 Capsule(s) PO QW 09/15/2016 12/13/2016 Inactive doxycycline hyclate 100 mg tablet RxNorm: 446927 1 Tablet(s) PO BID 08/11/2016 08/24/2016 Inactive doxycycline hyclate 100 mg tablet RxNorm: 894176 1 Tablet(s) PO BID 07/24/2016 07/28/2016 Inactive mupirocin 2 % topical ointment RxNorm: 903070 1 Application TOP BID 07/24/2016 07/23/2016 Inactive mupirocin 2 % topical ointment RxNorm: 126821 1 Application TOP BID 07/24/2016 07/30/2016 Inactive doxycycline hyclate 100 mg tablet RxNorm: 059037 1 Tablet(s) PO BID 07/24/2016 07/23/2016 Inactive potassium chloride ER 10 mEq tablet,extended release RxNorm: 915634 2 Tablet(s) PO BID 07/20/2016 10/04/2016 Inactive Lasix 20 mg tablet RxNorm: 973004 1 Tablet(s) PO PRN 2016 No Stop Date Active PRN for swelling Xanax 0.25 mg tablet RxNorm: 110412 Tablet(s) PO TAKE ONE TABLET BY MOUTH EVERY 4 TO 6 HOURS NEEDED 06/19/20162016 Inactive prednisone 20 mg tablet RxNorm: 442703 1 Tablet(s) PO BID 06/0306/07/2016 Inactive potassium chloride ER 10 mEq tablet,extended release RxNorm: 929628 2 Tablet(s) PO BID 05/06/2016 05/05/2016 Inactive potassium chloride ER 10 mEq tablet,extended release RxNorm: 776937 2 Tablet(s) PO BID 05/06/2016 06/04/2016 Inactive Levaquin 500 mg tablet RxNorm: 459302 1 Tablet(s) PO daily 03/30/2016 Inactive Levaquin 500 mg tablet RxNorm: 803915 1 Tablet(s) PO daily 04/06/2016 Inactive prednisone 20 mg tablet RxNorm: 856930 1 Tablet(s) PO BID 02/2402/29/2016 Inactive prednisone 20 mg tablet RxNorm: 929922 1 Tablet(s) PO BID 02/2402/24/2016 Inactive Flonase 50 mcg/actuation nasal spray,suspension RxNorm: 8587215 2 Drain NASAL daily 02/18/2016 02/27/2016 Inactive doxycycline hyclate 100 mg tablet RxNorm: 266403 1 Tablet(s) PO BID 02/18/2016 02/27/2016 Inactive doxycycline hyclate 100 mg tablet RxNorm: 594627 1 Tablet(s) PO BID 02/18/2016 02/17/2016 Inactive cyclobenzaprine 5 mg tablet RxNorm: 413903 1-2 Tablet(s) PO TID as needed 02/12/2016 02/21/2016 Inactive cyclobenzaprine 5 mg tablet RxNorm: 808544 1-2 Tablet(s) PO TID as needed 02/12/2016 02/11/2016 Inactive Xanax 0.25 mg tablet RxNorm: 015031 Tablet(s) PO TAKE ONE TABLET BY MOUTH EVERY 4 TO 6 HOURS NEEDED 01/20/20162016 Inactive (Appended: Controlled substance eRx refill - RxReferenceNumber: [id number]) metoprolol tartrate 25 mg tablet RxNorm: 322642 1/2 Tablet(s) PO BID 12/13/2015 04/10/2016 Inactive doxazosin 2 mg tablet RxNorm: 613511 1 Tablet(s) PO QHS 201512/16/2016 Inactive metoprolol tartrate 25 mg tablet RxNorm: 894594 1/2 Tablet(s) PO BID 12/09/2015 12/12/2015 Inactive Vitamin D2 50,000 unit capsule RxNorm: 537559 1 Capsule(s) PO QW 12/09/2015 02/06/2016 Inactive Lasix 20 mg tablet RxNorm: 148793 1 Tablet(s) PO PRN 201507/05/2016 Inactive PRN for swelling potassium chloride ER 20 mEq tablet,extended release RxNorm: 713613 1 Tablet(s) PO daily as needed When taking lasix 10/03/2015 04/26/2016 Inactive cyanocobalamin (vit B-12) 1,000 mcg/mL injection solution RxNorm: 579323 Milliliter(s) Inj 09/13/2015 09/13/2015 Inactive doxycycline hyclate 100 mg tablet RxNorm: 808596 1 Tablet(s) PO BID 09/12/2015 09/18/2015 Inactive potassium chloride ER 10 mEq tablet,extended release RxNorm: 145429 1 Tablet(s) PO daily as needed When taking lasix 09/04/2015 10/02/2015 Inactive Lasix 20 mg tablet RxNorm: 923387 1 Tablet(s) PO PRN 201510/02/2015 Inactive PRN for swelling doxycycline hyclate 100 mg tablet RxNorm: 993342 1 Tablet(s) PO BID 08/26/2015 08/25/2015 Inactive doxycycline hyclate 100 mg tablet RxNorm: 585329 1 Tablet(s) PO BID 08/26/2015 09/01/2015 Inactive mupirocin 2 % topical ointment RxNorm: 926138 1 Application TOP BID 08/02/2015 08/01/2015 Inactive mupirocin 2 % topical ointment RxNorm: 377692 1 Application TOP BID 08/02/2015 08/08/2015 Inactive metoprolol tartrate 50 mg tablet RxNorm: 176366 2 tabs in morning and 1 tablet at night dose PO as directed 06/13/201510/23 Inactive 2 tabs in the morning, and 1 in the evening Benicar 40 mg tablet RxNorm: 940756 1 Tablet(s) PO daily 201510/21/2015 Inactive Benicar 40 mg tablet RxNorm: 075880 1 Tablet(s) PO daily 201506/12/2015 Inactive Vitamin D2 50,000 unit capsule RxNorm: 752575 1 Capsule(s) PO QW 06/11/2015 12/07/2015 Inactive Xanax 0.25 mg tablet RxNorm: 492234 Tablet(s) PO TAKE ONE TABLET BY MOUTH EVERY 4 TO 6 HOURS NEEDED 06/06/20152015 Inactive (Appended: Controlled substance eRx refill - RxReferenceNumber: [id number]) Levaquin 500 mg tablet RxNorm: 307237 1 Tablet(s) PO daily 11/201510/28/2015 Inactive Kenalog 40 mg/mL suspension for injection RxNorm: 5386299 Milliliter(s) Inj 03/27/2015 03/27/2015 Inactive Kenalog 40 mg/mL suspension for injection RxNorm: 1161221 Milliliter(s) Inj 12/11/2014 12/11/2014 Inactive Vitamin D2 50,000 unit capsule RxNorm: 437895 1 Capsule(s) PO QW 12/05/2014 06/02/2015 Inactive [SAVINGS FOR NON-COVERED DRUGS -- BIN:[id number], PCN: ASPROD1, Group: XXXXX, ID# [id number], Questions: . THIS IS NOT INSURANCE.] Pradaxa 150 mg capsule RxNorm: 9430686 Capsule(s) PO BID 201409/08/2015 Inactive TAKE 1 CAPSULE BY MOUTH TWICE DAILY Vitamin D2 50,000 unit capsule RxNorm: 157845 1 Capsule(s) PO QW 12/04/2014 12/04/2014 Inactive [SAVINGS FOR NON-COVERED DRUGS -- BIN:550654, PCN: ASPROD1, Group: XXXXX, ID# [id number], Questions: . THIS IS NOT INSURANCE.] Lasix 20 mg tablet RxNorm: 725228 1 Tablet(s) PO PRN 201411/25/2014 Inactive PRN for swelling Levaquin 500 mg tablet RxNorm: 194754 1 Tablet(s) PO daily 01/201511/25/2014 Inactive Levaquin 500 mg tablet RxNorm: 499442 1 Tablet(s) PO daily 01/201512/02/2014 Inactive Lasix 20 mg tablet RxNorm: 780883 1 Tablet(s) PO PRN 201409/03/2015 Inactive PRN for swelling nitrofurantoin 100 mg capsule RxNorm: 059680 1 Capsule(s) PO BID 11/12/2014 11/17/2014 Inactive Macrobid 100 mg capsule RxNorm: 198585 1 Capsule(s) PO BID 11/18/2014 Inactive Macrobid 100 mg capsule RxNorm: 009528 1 Capsule(s) PO BID 11/11/2014 Inactive Levaquin 500 mg tablet RxNorm: 546128 1 Tablet(s) PO daily 11/11/2014 Inactive metoprolol tartrate 50 mg tablet RxNorm: 904498 2 tabs in morning and 1 tablet at night dose PO as directed 10/25/201405/21 Inactive 2 tabs in the morning, and 1 in the evening Xanax 0.25 mg tablet RxNorm: 138894 Tablet(s) PO TAKE ONE TABLET BY MOUTH EVERY 4 TO 6 HOURS NEEDED 08/30/20142014 Inactive (Appended: Controlled substance eRx refill - RxReferenceNumber: [id number]) Levaquin 500 mg tablet RxNorm: 407738 1 Tablet(s) PO daily 07/31/2014 Inactive Levaquin 500 mg tablet RxNorm: 406159 1 Tablet(s) PO daily 08/07/2014 Inactive Vitamin D2 50,000 unit capsule RxNorm: 970694 1 Capsule(s) PO QW 05/16/2014 2014 Inactive [SAVINGS FOR NON-COVERED DRUGS -- BIN:182562, PCN: ASPROD1, Group: XXXXX, ID# [id number], Questions: . THIS IS NOT INSURANCE.] Zithromax 500 mg tablet RxNorm: 520082 1 Tablet(s) PO daily 05/10/2014 Inactive Zithromax 500 mg tablet RxNorm: 528485 1 Tablet(s) PO daily 05/15/2014 Inactive [SAVINGS FOR NON-COVERED DRUGS -- BIN:755956, PCN: ASPROD1, Group: XXXXX, ID# [id number], Questions: . THIS IS NOT INSURANCE.] prednisone 20 mg tablet RxNorm: 203125 Tablet(s) PO 3daily x 2days, then 2daily x2days, then 1daily x2days, then 1/2 daily x 2days then stop 03/13/2014 2014 Inactive [SAVINGS FOR UNINSURED PATIENTS -- BIN:650015, PCN: ASPROD1, Group: [id number], ID# [id number], Process claim through [employer], for questions: [phone]. THIS IS NOT INSURANCE.] Levaquin 500 mg tablet RxNorm: 079811 1 Tablet(s) PO daily TAKE ONE TABLET BY MOUTH ONCE DAILY take with benadryl 03/13/2014 03/22/2014 Inactive [SAVINGS FOR UNINSURED PATIENTS -- BIN:691469, PCN: ASPROD1, Group: [id number], ID# [id number], Process claim through [employer], for questions: . THIS IS NOT INSURANCE.] Levaquin 500 mg tablet RxNorm: 495126 1 Tablet(s) PO daily TAKE ONE TABLET BY MOUTH ONCE DAILY take with benadryl 02/26/2014 03/07/2014 Inactive pt to [facility] picker today 01/06/14 [SAVINGS FOR UNINSURED PATIENTS -- BIN:342376, PCN: ASPROD1, Group: [id number], ID# [id number], Process claim through [employer], for questions: [phone]. THIS IS NOT INSURANCE.] Xanax 0.25 mg tablet RxNorm: 867266 Tablet(s) PO TAKE ONE TABLET BY MOUTH EVERY 4 TO 6 HOURS NEEDED 02/05/20142013 Inactive (Appended: Controlled substance eRx refill - RxReferenceNumber: [id number]) prednisone 20 mg tablet RxNorm: 367491 2 Tablet(s) PO QAM 01/0601/10/2014 Inactive call pt when ready for pear picker today 01/06/14 Levaquin 500 mg tablet RxNorm: 204435 1 Tablet(s) PO daily TAKE ONE TABLET BY MOUTH ONCE DAILY take with benadryl 01/06/2014 01/12/2014 Inactive pt to pear picker today 01/06/14 prednisone 20 mg tablet RxNorm: 146346 Tablet(s) PO 3daily x 2days, then 2daily x2days, then 1daily x2days, then 1/2 daily x 2days then stop 12/13/2013 03/12/2014 Inactive Levaquin 500 mg tablet RxNorm: 341635 1 Tablet(s) PO daily TAKE ONE TABLET BY MOUTH ONCE DAILY take with benadryl 12/13/2013 12/19/2013 Inactive Vitamin D2 50,000 unit capsule RxNorm: 515808 1 Capsule(s) PO QW 12/12/2013 03/11/2014 Inactive weekly x 12 weeks Vitamin D2 50,000 unit capsule RxNorm: 873857 1 Capsule(s) PO QW 12/12/2013 12/11/2013 Inactive metoprolol tartrate 50 mg tablet RxNorm: 166501 2 tabs in morning and 1 tablet at night dose PO as directed 11/03/201305/31 Inactive 2 tabs in the morning, and 1 in the evening Bactroban 2 % topical ointment RxNorm: 085294 1 Application TOP BID 10/30/2013 11/08/2013 Inactive Bactroban 2 % topical ointment RxNorm: 241746 1 Application TOP BID 10/30/2013 10/29/2013 Inactive Lasix 40 mg tablet RxNorm: 925429 1 Tablet(s) PO daily as needed 10/23/2013 2014 Inactive metoprolol tartrate 50 mg tablet RxNorm: 197477 1 Tablet(s) PO BID 08/28/2013 09/26/2013 Inactive 2 tabs in the morning, and 1 in the evening metoprolol tartrate 50 mg tablet RxNorm: 352286 1 Tablet(s) PO BID 08/28/2013 08/27/2013 Inactive 2 tabs in the morning, and 1 in the evening Lasix 40 mg tablet RxNorm: 714877 1 Tablet(s) PO daily 201310/22/2013 Inactive Lasix 40 mg tablet RxNorm: 647639 1 Tablet(s) PO daily 201308/07/2013 Inactive potassium chloride ER 10 mEq tablet,extended release RxNorm: 279565 1 Tablet(s) PO BID 07/14/2013 2014 Inactive Lipitor 20 mg tablet RxNorm: 336928 1 Tablet(s) PO daily 201307/08/2014 Inactive generic ok Xanax 0.25 mg tablet RxNorm: 763672 Tablet(s) PO TAKE 1 TABLET BY MOUTH EVERY 4 TO 6 HOURS NEEDED 07/14/20132013 Inactive (Appended: Controlled substance eRx refill - RxReferenceNumber: [id number]|1|0|1) Xanax 0.25 mg tablet RxNorm: 375778 Tablet(s) PO TAKE ONE TABLET BY MOUTH EVERY 4 TO 6 HOURS NEEDED 07/14/20132013 Inactive (Appended: Controlled substance eRx refill - RxReferenceNumber: [id number]) metoprolol succinate ER 50 mg tablet,extended release 24 hr RxNorm: 239542 100mg q am 50 in even Tablet(s) PO 07/14/2013 Inactive Levaquin 500 mg tablet RxNorm: 394064 Tablet(s) PO TAKE ONE TABLET BY MOUTH ONCE DAILY 07/13/2013 12/12/2013 Inactive Levaquin 500 mg tablet RxNorm: 074419 Tablet(s) PO TAKE ONE TABLET BY MOUTH ONCE DAILY 07/13/2013 10/22/2013 Inactive Levaquin 500 mg tablet RxNorm: 343730 1 Tablet(s) PO daily 02/201305/22/2013 Inactive Levaquin 500 mg tablet RxNorm: 159858 1 Tablet(s) PO daily 05/15/2013 Inactive Lipitor 20 mg tablet RxNorm: 284696 1 Tablet(s) PO daily 201307/13/2013 Inactive generic ok Kenalog 40 mg/mL suspension for injection RxNorm: 9038658 1 Milliliter(s) Inj 04/14/2013 04/14/2013 Inactive Lipitor 20 mg tablet RxNorm: 473784 1 Tablet(s) PO daily 201304/16/2013 Inactive Lipitor 20 mg tablet RxNorm: 866024 1 Tablet(s) PO daily 201304/13/2013 Inactive metoprolol succinate ER 50 mg tablet,extended release 24 hr RxNorm: 657976 100mg q am 50 in even Tablet(s) PO 04/14/2013 Inactive Levaquin 500 mg tablet RxNorm: 258580 1 Tablet(s) PO daily 04/20/2013 Inactive Carafate 1 gram tablet RxNorm: 589712 1 Tablet(s) PO QID 201303/30/2013 Inactive Carafate 1 gram tablet RxNorm: 826011 1 Tablet(s) PO QID 201304/23/2013 Inactive Zithromax Z-Preston 250 mg tablet RxNorm: 371383 Tablet(s) PO zpack as directed 01/31/2013 04/12/2013 Inactive Zofran 4 mg tablet RxNorm: 194812 1 Tablet(s) PO Q6 PRN 12/0704/12/2013 Inactive Xanax 0.25 mg tablet RxNorm: 791202 Tablet(s) PO TAKE 1 TABLET BY MOUTH EVERY 4 TO 6 HOURS NEEDED 06/20/20122013 Inactive (Appended: Controlled substance eRx refill - RxReferenceNumber: [id number]|1|0|1) Xanax 0.25 mg tablet RxNorm: 679146 1 Tablet(s) PO Q4-6H q 4-6 hrs prn 06/20/2012 No Stop Date Active doxycycline monohydrate 100 mg tablet RxNorm: 3638650 1 Tablet(s) PO BID 05/17/2012 05/26/2012 Inactive doxycycline monohydrate 100 mg tablet RxNorm: 9598134 1 Tablet(s) PO BID 04/11/2012 04/20/2012 Inactive Kenalog 40 mg/mL Susp for Injection RxNorm: 8791401 1 Milliliter(s) Inj 04/11/2012 04/11/2012 Inactive metoprolol succinate ER 50 mg tablet,extended release 24 hr RxNorm: 131251 Tablet (s) PO TAKE 1 & 1/2 TABLETS BY MOUTH TWICE DAILY 02/01/2012 04/13/2013 Inactive Lipitor 40 mg tablet RxNorm: 266624 Tablet(s) PO TAKE 1 TABLET BY MOUTH EVERY DAY 02/01/2012 04/12/2013 Inactive Pradaxa 150 mg capsule RxNorm: 7382039 Capsule(s) PO 201112/03/2014 Inactive TAKE 1 CAPSULE BY MOUTH TWICE DAILY Xanax 0.25 mg tablet RxNorm: 098783 1 Tablet(s) PO Q4-6H q 4-6 hrs prn 12/28/2011 06/20/2012 Inactive metoprolol succinate ER 50 mg tablet,extended release 24 hr RxNorm: 117578 Tablet (s) PO 12/28/2011 01/31/2012 Inactive TAKE 1 & 1/2 TABLETS BY MOUTH TWICE DAILY Singulair 10 mg tablet RxNorm: 393472 Tablet(s) PO 12/28/2011 04/13/2013 Inactive TAKE ONE TABLET BY MOUTH DAILY clindamycin 150 mg capsule RxNorm: 358748 1 Capsule(s) PO QID 11/25/2011 12/01/2011 Inactive Influenza Virus Vaccine 0.5 mL RxNorm: IM 11/11/2011 11/11/2011 Inactive Pneumovax 23 25 mcg/0.5 mL Injection RxNorm: 771423 Milliliter(s) Inj 11/11/2011 11/11/2011 Inactive Biaxin 500 mg tablet RxNorm: 251026 1 Tablet(s) PO BID 201110/30/2011 Inactive Flagyl 500 mg tablet RxNorm: 204536 1 Tablet(s) PO TID 201109/03/2011 Inactive Flagyl 500 mg tablet RxNorm: 471791 1 Tablet(s) PO TID 201109/10/2011 Inactive doxycycline hyclate 100 mg tablet RxNorm: 3253603 1 Tablet(s) PO BID 09/04/2011 09/10/2011 Inactive doxycycline hyclate 100 mg tablet RxNorm: 7226379 1 Tablet(s) PO BID 09/04/2011 09/03/2011 Inactive Xopenex 1.25 mg/3 mL Neb Solution RxNorm: 679580 1 Unit(s) INH Q4 PRN 08/18/2011 12/15/2011 Inactive 1 box Xopenex 1.25 mg/3 mL Neb Solution RxNorm: 448825 1 Milliliter(s) INH Q4 PRN 08/18/2011 08/17/2011 Inactive 1 box Zithromax Z-Preston 250 mg Tab RxNorm: 278943 Tablet(s) PO UD 08/1008/11/2011 Inactive doxycycline hyclate 100 mg Tab RxNorm: 6532175 1 Tablet(s) PO BID 08/11/2011 08/11/2011 Inactive prednisone 10 mg Tab RxNorm: 250648 1 Tablet(s) PO BID q a.m. and q NOON x 5 days 08/11/2011 08/10/2011 Inactive prednisone 10 mg Tab RxNorm: 532456 1 Tablet(s) PO BID q a.m. and q NOON x 5 days 08/11/2011 08/15/2011 Inactive Kenalog 40 mg/mL Susp for Injection RxNorm: 2623266 1 Milliliter(s) Inj 08/11/2011 08/11/2011 Inactive doxycycline hyclate 100 mg Tab RxNorm: 2938418 1 Tablet(s) PO BID 08/11/2011 08/10/2011 Inactive nystatin 100,000 unit/mL Oral Susp RxNorm: 671218 6 Milliliter(s) PO QID 08/10/2011 08/16/2011 Inactive Jamie 60 mg Tab RxNorm: 030703 1 Tablet(s) PO daily 201101/23/2012 Inactive Jamie 60 mg Tab RxNorm: 989005 1 Tablet(s) PO daily 201107/27/2011 Inactive potassium chloride ER 10 mEq tablet,extended release RxNorm: 030532 1 Tablet(s) PO BID 07/27/2011 08/19/2012 Inactive Synthroid 75 mcg Tab RxNorm: 569424 Tablet(s) PO 07/06/2011 07/29/2012 Inactive one tab wednesday1/2 tab other days potassium chloride ER 10 mEq Tab RxNorm: 638182 1 Tablet(s) PO BID 07/02/2011 07/26/2011 Inactive Lasix 40 mg tablet RxNorm: 905078 1 Tablet(s) PO daily 201112/28/2011 Inactive Nexium 40 mg Capsule, delayed release RxNorm: 600239 1 Capsule(s) PO daily 06/25/2011 11/24/2011 Inactive Lexapro 10 mg Tab RxNorm: 125408 1 Tablet(s) PO daily 201107/14/2011 Inactive Carafate 100 mg/mL Oral Susp RxNorm: 509958 10 Milliliter(s) PO QID 06/25/2011 10/20/2011 Inactive dispense qs x 1 month nystatin 100,000 unit/mL Oral Susp RxNorm: 194597 3 Milliliter(s) PO QID swish, gargle, then swallow four times daily. 06/25/2011 07/14/2011 Inactive dispense qs x 10 days. Mucinex 1,200 mg 12 hr Tab RxNorm: 678550 1 Tablet(s) PO BID 07/21/2011 Inactive Lipitor 40 mg tablet RxNorm: 079999 1 Tablet(s) PO daily 201112/18/2011 Inactive lactobacillus acidophilus Cap RxNorm: 2 Capsule(s) PO BID 08/201107/14/2011 Inactive Mucinex 1,200 mg 12 hr Tab RxNorm: 892965 1 Tablet(s) PO BID 06/21/2011 Inactive lactobacillus acidophilus Cap RxNorm: 1 Capsule(s) PO BID 06/21/2011 Inactive Kenalog 40 mg/mL Susp for Injection RxNorm: 1179994 1 Milliliter(s) Inj 06/15/2011 06/15/2011 Inactive Flagyl 500 mg Tab RxNorm: 433718 1 Tablet(s) PO TID 201107/14/2011 Inactive doxycycline hyclate 100 mg Cap RxNorm: 3485003 1 Capsule(s) PO BID 06/15/2011 07/14/2011 Inactive clarithromycin 250 mg Tab RxNorm: 006570 1 Tablet(s) PO BID 07/14/2011 Inactive Xanax 0.25 mg tablet RxNorm: 468395 1 Tablet(s) PO Q4-6H q 4-6 hrs prn 05/27/2011 07/16/2011 Inactive Lasix 40 mg Tab RxNorm : 752758 3 Tablet(s) PO as directed 2 q am and 1 q noon 05/27/2011 07/01/2011 Inactive potassium chloride ER 10 mEq Tab RxNorm: 686040 1 Tablet(s) PO BID 05/27/2011 05/26/2011 Inactive KCL 10 meq RxNorm: 1 PO BID 05/27/201112/2011 Inactive potassium chloride ER 10 mEq Tab RxNorm: 402770 1 Tablet(s) PO BID 05/27/2011 06/25/2011 Inactive Pradaxa 75 mg Cap RxNorm: 7099959 2 Capsule(s) PO daily 09/29/2011 Inactive Biaxin 500 mg Tab RxNorm: 332572 1 Tablet(s) PO BID 201103/16/2011 Inactive Biaxin 500 mg Tab RxNorm: 652162 1 Tablet(s) PO BID 201107/14/2011 Inactive azithromycin 250 mg Tab RxNorm: 287201 1 Tablet(s) PO daily two by mouth daily x 3 days, then daily thereafter 02/06/2011 07/14/2011 Inactive two by mouth daily x 3 days, then daily thereafter until supply is exhausted azithromycin 250 mg Tab RxNorm: 339101 1 Tablet(s) PO daily two by mouth daily x 3 days, then daily thereafter 02/06/2011 02/05/2011 Inactive two by mouth daily x 3 days, then daily thereafter until supply is exhausted azithromycin 250 mg Tab RxNorm: 327424 1 Tablet(s) PO daily two by mouth daily x 3 days, then daily thereafter 02/06/2011 02/05/2011 Inactive two by mouth daily x 3 days, then daily thereafter until supply is exhausted Valturna 300 mg-320 mg Tab RxNorm: 4680466 Tablet(s) PO 201007/14/2011 Inactive TAKE 1 TABLET BY MOUTH EVERY DAY Kenalog 40 mg/mL Susp for Injection RxNorm: 2789579 2 Milliliter(s) Inj 11/20/2010 11/20/2010 Inactive Avelox 400 mg Tab RxNorm: 131425 1 Tablet(s) PO daily 201007/14/2011 Inactive Biaxin 500 mg Tab RxNorm: 655981 1 Tablet(s) PO BID 201011/15/2010 Inactive Pradaxa 150 mg Cap RxNorm: 1059198 1 Capsule(s) PO BID 201007/14/2011 Inactive Zyrtec oral RxNorm: 19346 oral No Start Date Active doxazosin 2 mg tablet RxNorm: 312290 1/2 Tablet(s) PO BID No Start Date 12/08/2015 Inactive Pyridium 200 mg tablet RxNorm: 3764973 1 Tablet(s) PO TID PRN No Start Date 10/28/2016 Inactive ondansetron 4 mg disintegrating tablet RxNorm: 498853 1 Tablet(s) PO Q4 PRN No Start Date 10/21/2017 Inactive Pradaxa 75 mg Cap RxNorm: 8380810 1 Capsule(s) PO daily No Start Date 05/04/2011 Inactive Singulair 10 mg tablet RxNorm: 510870 1 Tablet(s) PO daily No Start Date 07/14/2011 Inactive hydrocodone-acetaminophen 5 mg-325 mg tablet RxNorm: 005580 1 Tablet(s) PO Q6 PRN No Start Date 04/12/2013 Inactive Toprol XL 100 mg 24 hr Tab RxNorm: 270260 1 Tablet(s) PO BID No Start Date 07/14/2011 Inactive Zofran 4 mg tablet RxNorm: 087716 1 Tablet(s) PO Q6 PRN No Start Date 12/06/2012 Inactive Vitamin D2 50,000 unit capsule RxNorm: 259395 1 Capsule(s) PO QW No Start Date 05/15/2014 Inactive prednisone 10 mg tablet RxNorm: 263018 Tablet(s) PO UD No Start Date 06/15/2017 Inactive 6,5,4,3,2,1 Lipitor 40 mg Tab RxNorm: 566867 1 Tablet(s) PO daily No Start Date 06/21/2011 Inactive Trilipix 135 mg Cap RxNorm: 462358 Capsule(s) PO No Start Date 11/26/2010 Inactive Eliquis 5 mg tablet RxNorm: 1811525 1 Tablet(s) PO BID No Start Date 12/08/2015 Inactive KCL 10 meq RxNorm: 1 PO BID No Start Date 05/26/2011 Inactive Diovan 80 mg Tab RxNorm: 487830 1 Tablet(s) PO QHS No Start Date 07/14/2011 Inactive Lipitor 20 mg tablet RxNorm: 732525 1 Tablet(s) PO daily No Start Date 04/13/2013 Inactive Zithromax Z-Preston 250 mg tablet RxNorm: 338529 Tablet(s) PO No Start Date 01/30/2013 Inactive aspirin 81 mg Tab, Delayed Release RxNorm: 708882 1 Tablet(s) PO daily No Start Date 07/14/2011 Inactive prednisone 20 mg Tab RxNorm: 551671 Tablet(s) PO UD 3 tabs x 1 day, then 2 tabs daily x 2 days then 1 tab daily x 1 days, 1/2 daily x 1 day then 1/2 QOD x 2 doses then stop No Start Date 07/14/2011 Inactive Flonase 50 mcg/actuation Nasal Drain RxNorm: 2769912 2 Drain NASAL daily No Start Date 02/17/2016 Inactive hydrocodone 2.5 mg-guaifenesin 200 mg/5 mL syrup RxNorm: 344238 10 Unit Dose PO Q6 PRN No Start Date 04/25/2017 Inactive potassium chloride ER 10 mEq tablet,extended release RxNorm: 005589 1 Tablet(s) PO daily No Start Date 10/14/2016 Inactive Diovan 160 mg Tab RxNorm: 911534 1 Tablet(s) PO QHS No Start Date 12/20/2011 Inactive Lasix 40 mg Tab RxNorm : 637334 3 Tablet(s) PO as directed 2 q am and 1 q noon No Start Date 05/26/2011 Inactive metoprolol succinate ER 50 mg tablet,extended release 24 hr RxNorm: 841845 1 1 / 2 Tablet(s) PO BID No Start Date 2011 Inactive Carafate 1 gram Tab RxNorm: 626380 1 Tablet(s) PO TID No Start Date 07/14/2011 Inactive doxycycline hyclate 100 mg tablet RxNorm: 527459 1 Tablet(s) PO BID No Start Date 08/10/2016 Inactive Zithromax Z-Preston 250 mg Tab RxNorm: 479637 Oral No Start Date 08/10/2011 Inactive prednisone 20 mg Tab RxNorm: 755312 Tablet(s) PO No Start Date 04/06/2011 Inactive 3 tabs x 2 days, 2 tabs x 2 days, 1 tab x 2 days, 1/2 daily x 4 days then stop Bentyl 10 mg Cap RxNorm: 906907 1 Capsule(s) PO BID No Start Date 07/14/2011 Inactive Xarelto 15 mg tablet RxNorm: 6184043 1 Tablet(s) PO daily No Start Date 06/27/2017 Inactive Valturna 300 mg-320 mg Tab RxNorm: 1402708 1 Tablet(s) PO daily No Start Date 01/19/2011 Inactive Vitamin D 1,000 unit Tab RxNorm: 492664 1 Tablet(s) PO daily No Start Date 07/14/2011 Inactive Lexapro 10 mg Tab RxNorm: 297567 1 Tablet(s) PO daily No Start Date 04/06/2011 Inactive Synthroid 75 mcg Tab RxNorm: 999951 Tablet(s) PO No Start Date 07/05/2011 Inactive Protonix 40 mg Tab RxNorm: 714884 1 Tablet(s) PO daily No Start Date 07/14/2011 Inactive ranitidine 150 mg tablet RxNorm: 734282 1 Tablet(s) PO BID No Start Date 04/25/2017 Inactive prednisone 20 mg tablet RxNorm: 815015 Tablet(s) PO 3daily x 2days, then 2daily x2days, then 1daily x2days, then 1/2 daily x 2days then stop No Start Date 12/12/2013 Inactive Nexium 40 mg Cap RxNorm: 827802 1 Capsule(s) PO daily No Start Date 06/03/2011 Inactive Xanax 0.25 mg Tab RxNorm: 696861 1 Tablet(s) PO Q4-6H q 4-6 hrs prn No Start Date 04/06/2011 Inactive Synthroid 50 mcg Tab RxNorm: 424122 1 Tablet(s) PO daily No Start Date 07/14/2011 Inactive Pradaxa 150 mg capsule RxNorm: 1140166 1 Capsule(s) PO BID No Start Date 12/30/2011 Inactive metoprolol tartrate 25 mg tablet RxNorm: 998443 1 Tablet(s) PO TID No Start Date 12/08/2015 Inactive Singulair 5 mg Chewable Tab RxNorm: 536476 1 Tablet(s) PO every other day No Start Date 04/13/2013 Inactive Pepcid oral RxNorm: 4278 oral No Start Date 05/01/2018 Inactive Medication Administered Medication Codes Instructions Start Date Status ketorolac 60 mg/2 mL intramuscular solution RxNorm: 1982749 Milliliter 03/21/2018 No longer Active cyanocobalamin (vit B-12) 1,000 mcg/mL injection solution RxNorm: 282910 Milliliter 09/13/2015 No longer Active Kenalog 40 mg/mL suspension for injection RxNorm: 5815939 Milliliter 03/27/2015 No longer Active Kenalog 40 mg/mL suspension for injection RxNorm: 6818718 Milliliter 12/11/2014 No longer Active Kenalog 40 mg/mL suspension for injection RxNorm: 5506448 1Milliliter 04/14/2013 No longer Active Kenalog 40 mg/mL Susp for Injection RxNorm: 0646674 1Milliliter 04/11/2012 No longer Active Influenza Virus Vaccine 0.5 mL RxNorm: 11/11/2011 No longer Active Pneumovax 23 25 mcg/0.5 mL Injection RxNorm: 043257 Milliliter 11/11/2011 No longer Active Kenalog 40 mg/mL Susp for Injection RxNorm: 6393130 1Milliliter 08/11/2011 No longer Active Kenalog 40 mg/mL Susp for Injection RxNorm: 2960705 1Milliliter 06/15/2011 No longer Active Kenalog 40 mg/mL Susp for Injection RxNorm: 2163753 2Milliliter 11/20/2010 No longer Active Immunizations Vaccine [...] medications ICD-9: V58.69 04/12/2013 ESSENTIAL HYPERTENSION SNOMED: 95754282 ICD-9: 401.9 04/12/2013 ATRIAL FIBRILLATION ICD-9: 427.31 [...] Knee pain, acute ICD-9: 719.46 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 Encounter for general adult medical [...] Item Item Code Result Date Comp Metabolic Gyc797 NA 139 mEq/L 04/26/2018 Comp Metabolic Jtd403 K 4.2 mEq/L 04/26/2018 Comp Metabolic Rcc429 CL 103 mEq/L 04/26/2018 Comp Metabolic Scb599 CO2 30.0 mEq/L 04/26/2018 Comp Metabolic Mbm653 ANION GAP 10 04/26/2018 Comp Metabolic Zok892 GLUCOSE 105 mg/dL 04/26/2018 Comp Metabolic Ymk613 Creat 1.0 mg/dL 04/26/2018 Comp Metabolic Dqv477 eGFR 62 ml/min/1.73m2 04/26/2018 Comp Metabolic Nwm435 BUN 13 mg/dL 04/26/2018 Comp Metabolic Cxb750 B/C Ratio 13.7 Ratio 04/26/2018 Comp Metabolic Mev965 CALCIUM 9.4 mg/dL 04/26/2018 Comp Metabolic Cea957 ALK PHOS 116 U/L 04/26/2018 Comp Metabolic Dav159 AST(SGOT) 13 U/L 04/26/2018 Comp Metabolic Ttd289 ALT(SGPT) 12 U/L 04/26/2018 Comp Metabolic Xnh398 BILI T 0.6 mg/dL 04/26/2018 Comp Metabolic Bmz001 ALBUMIN 3.8 g/dL 04/26/2018 Comp Metabolic Erx555 TPRO 6.4 g/dL 04/26/2018 Comp Metabolic Nmi420 GLOB 2.6 g/dL 04/26/2018 Comp Metabolic Def748 A/G Ratio 1.4 Ratio 04/26/2018 Comp Metabolic Mgg331 Osmo 278 mOsmo 04/26/2018 Lipid Ord30 CHOL [...] 24.5 % 04/26/2018 Cbc With Differential Ord2 [place]% 6.7 % 04/26/2018 Cbc With Differential Ord2 [...] 2.47 K/ul 04/26/2018 Cbc With Differential Ord2 [place] ABS# 0.7 K/ul 04/26/2018 Cbc With Differential [...] Ord30 C/HDL 3.5 Ratio 03/15/2017 Comp Metabolic Tls913 NA 140 mEq/L 03/15/2017 Comp Metabolic Hbh158 K 3.6 mEq/L 03/15/2017 Comp Metabolic Nww486 CL 104 mEq/L 03/15/2017 Comp Metabolic Nwc479 CO2 27.0 mEq/L 03/15/2017 Comp Metabolic Ilp374 ANION GAP 13 03/15/2017 Comp Metabolic Jyy890 GLUCOSE 93 mg/dL 03/15/2017 Comp Metabolic Rjp719 Creat 0.9 mg/dL 03/15/2017 Comp Metabolic Vdy804 eGFR 68 ml/min/1.73m2 03/15/2017 Comp Metabolic Luk390 BUN 10 mg/dL 03/15/2017 Comp Metabolic Ddt386 B/C Ratio 11.4 Ratio 03/15/2017 Comp Metabolic Sgx121 CALCIUM 9.4 mg/dL 03/15/2017 Comp Metabolic Zzu053 ALK PHOS 84 U/L 03/15/2017 Comp Metabolic Xgm917 AST(SGOT) 14 U/L 03/15/2017 Comp Metabolic Eny712 ALT(SGPT) 15 U/L 03/15/2017 Comp Metabolic Lkf461 BILI T 0.5 mg/dL 03/15/2017 Comp Metabolic Iom331 ALBUMIN 3.6 g/dL 03/15/2017 Comp Metabolic Ylb568 TPRO 6.0 g/dL 03/15/2017 Comp Metabolic Okc076 GLOB 2.4 g/dL 03/15/2017 Comp Metabolic Onw396 A/G Ratio 1.5 Ratio 03/15/2017 Comp Metabolic Byl706 Osmo 278 mOsmo 03/15/2017 Magnesium Ord90 Mag [...] 30.4 pg 03/15/2017 Cbc With Differential Ord2 [place]% 6.7 % 03/15/2017 Cbc With Differential Ord2 [...] 2.24 K/ul 03/15/2017 Cbc With Differential Ord2 [place] ABS# 0.5 K/ul 03/15/2017 Cbc With Differential [...] Ord15 CALCIUM 9.4 mg/dL 01/15/2017 Comp Metabolic Euw898 NA 137 mEq/L 12/31/2016 Comp Metabolic Hbr156 K 3.2 mEq/L 12/31/2016 Comp Metabolic Yqc426 CL 95 mEq/L 12/31/2016 Comp Metabolic Wpt553 CO2 30.0 mEq/L 12/31/2016 Comp Metabolic Vqe479 ANION GAP 15 12/31/2016 Comp Metabolic Kcy222 GLUCOSE 111 mg/dL 12/31/2016 Comp Metabolic Pfa735 Creat 1.3 mg/dL 12/31/2016 Comp Metabolic Bet223 eGFR 45 ml/min/1.73m2 12/31/2016 Comp Metabolic Yen780 BUN 14 mg/dL 12/31/2016 Comp Metabolic Lkb854 B/C Ratio 11.1 Ratio 12/31/2016 Comp Metabolic Cxk810 CALCIUM 10.0 mg/dL 12/31/2016 Comp Metabolic Zqw131 ALK PHOS 61 U/L 12/31/2016 Comp Metabolic Hzz110 AST(SGOT) 14 U/L 12/31/2016 Comp Metabolic Uym063 ALT(SGPT) 13 U/L 12/31/2016 Comp Metabolic Icf605 BILI T 0.9 mg/dL 12/31/2016 Comp Metabolic Hof947 ALBUMIN 3.8 g/dL 12/31/2016 Comp Metabolic Lcw469 TPRO 6.7 g/dL 12/31/2016 Comp Metabolic Pcr184 GLOB 2.9 g/dL 12/31/2016 Comp Metabolic Mey584 A/G Ratio 1.3 Ratio 12/31/2016 Comp Metabolic Puk659 Osmo 275 mOsmo 12/31/2016 Cbc With Differential [...] 30.3 pg 12/31/2016 Cbc With Differential Ord2 [place]% 11.2 % 12/31/2016 Cbc With Differential Ord2 [...] 1.89 K/ul 12/31/2016 Cbc With Differential Ord2 [place] ABS# 0.7 K/ul 12/31/2016 Cbc With Differential Ord2 Eos ABS# 0.1 K/ul 12/31/2016 Cbc With Differential Ord2 Baso ABS# 0.1 K/ul 12/31/2016 Urine Culture Ucult Complete >100,000 col/ml aerobic growth sent to ref lab 10/30/2016 Tsh Ord6 hTSH II 2.88 uIU/mL 09/15/2016 Comp Metabolic Dvd802 NA 139 mEq/L 09/15/2016 Comp Metabolic Tuu518 K 4.0 mEq/L 09/15/2016 Comp Metabolic Qxi398 CL 104 mEq/L 09/15/2016 Comp Metabolic Ywn490 CO2 27.0 mEq/L 09/15/2016 Comp Metabolic Asl022 ANION GAP 12 09/15/2016 Comp Metabolic Cvu419 GLUCOSE 105 mg/dL 09/15/2016 Comp Metabolic Atg807 Creat 0.9 mg/dL 09/15/2016 Comp Metabolic Kmw065 eGFR 67 ml/min/1.73m2 09/15/2016 Comp Metabolic Uez202 BUN 14 mg/dL 09/15/2016 Comp Metabolic Syv861 B/C Ratio 15.7 Ratio 09/15/2016 Comp Metabolic Znd931 CALCIUM 9.0 mg/dL 09/15/2016 Comp Metabolic Iiv114 ALK PHOS 85 U/L 09/15/2016 Comp Metabolic Roy238 AST(SGOT) 12 U/L 09/15/2016 Comp Metabolic Dyy471 ALT(SGPT) 11 U/L 09/15/2016 Comp Metabolic Sjj360 BILI T 0.5 mg/dL 09/15/2016 Comp Metabolic Fhl069 ALBUMIN 3.4 g/dL 09/15/2016 Comp Metabolic Feg585 TPRO 5.8 g/dL 09/15/2016 Comp Metabolic Tcg419 GLOB 2.4 g/dL 09/15/2016 Comp Metabolic Vzv080 A/G Ratio 1.4 Ratio 09/15/2016 Comp Metabolic Ixe311 Osmo 278 mOsmo 09/15/2016 Vitamin D 25 Oh Dhq8073 VITAMIN D, 25 HYDROXY 25.95 ng/mL Lipid [...] 9.2 mg/dL 01/13/2016 Vitamin D 25 Oh Cbr9708 VITAMIN D, 25 HYDROXY 38.03 ng/mL Comp Metabolic Uxp209 NA 139 mEq/L 11/28/2015 Comp Metabolic Cof347 K 4.0 mEq/L 11/28/2015 Comp Metabolic Yae875 CL 105 mEq/L 11/28/2015 Comp Metabolic Koq164 CO2 25.0 mEq/L 11/28/2015 Comp Metabolic Sex517 ANION GAP 13 11/28/2015 Comp Metabolic Dch115 GLUCOSE 100 mg/dL 11/28/2015 Comp Metabolic Vdi990 Creat 1.1 mg/dL 11/28/2015 Comp Metabolic Ewf677 eGFR 55 ml/min/1.73m2 11/28/2015 Comp Metabolic Zkj724 BUN 13 mg/dL 11/28/2015 Comp Metabolic Dog423 B/C Ratio 12.3 Ratio 11/28/2015 Comp Metabolic Fuy732 CALCIUM 9.2 mg/dL 11/28/2015 Comp Metabolic Wal095 ALK PHOS 85 U/L 11/28/2015 Comp Metabolic Hhz619 AST(SGOT) 15 U/L 11/28/2015 Comp Metabolic Kis430 ALT(SGPT) 15 U/L 11/28/2015 Comp Metabolic Kpe655 BILI T 0.5 mg/dL 11/28/2015 Comp Metabolic Qfo386 ALBUMIN 3.7 g/dL 11/28/2015 Comp Metabolic Ffo093 TPRO 6.4 g/dL 11/28/2015 Comp Metabolic Uuc992 GLOB 2.7 g/dL 11/28/2015 Comp Metabolic Fty959 A/G Ratio 1.4 Ratio 11/28/2015 Comp Metabolic Uwi542 Osmo 278 mOsmo 11/28/2015 Tsh Ord6 hTSH II 1.98 uIU/mL 11/28/2015 Free T4 Aeo840 FREE T4 1.04 ng/dL 11/28/2015 Cbc With [...] 30.9 pg 11/28/2015 Cbc With Differential Ord2 [place]% 6.7 % 11/28/2015 Cbc With Differential Ord2 [...] 2.19 K/ul 11/28/2015 Cbc With Differential Ord2 [place] ABS# 0.6 K/ul 11/28/2015 Cbc With Differential Ord2 Eos ABS# 0.1 K/ul 11/28/2015 Cbc With Differential Ord2 Baso ABS# 0.1 K/ul 11/28/2015 Comp Metabolic Tct714 NA 135 mEq/L 10/15/2015 Comp Metabolic Lmq414 K 3.5 mEq/L 10/15/2015 Comp Metabolic Wbu770 CL 100 mEq/L 10/15/2015 Comp Metabolic Vvn582 CO2 29.0 mEq/L 10/15/2015 Comp Metabolic Sit639 ANION GAP 10 10/15/2015 Comp Metabolic Xgb786 GLUCOSE 88 mg/dL 10/15/2015 Comp Metabolic Ket392 Creat 0.9 mg/dL 10/15/2015 Comp Metabolic Ose141 eGFR 67 ml/min/1.73m2 10/15/2015 Comp Metabolic Ynv256 BUN 16 mg/dL 10/15/2015 Comp Metabolic Hmc356 B/C Ratio 17.8 Ratio 10/15/2015 Comp Metabolic Rdl191 CALCIUM 9.4 mg/dL 10/15/2015 Comp Metabolic Gwg201 ALK PHOS 96 U/L 10/15/2015 Comp Metabolic Lxs185 AST(SGOT) 15 U/L 10/15/2015 Comp Metabolic Euu906 ALT(SGPT) -125 U/L 10/15/2015 Comp Metabolic Mqf364 BILI T 0.4 mg/dL 10/15/2015 Comp Metabolic Iic978 ALBUMIN 4.2 g/dL 10/15/2015 Comp Metabolic Bmu636 TPRO 7.2 g/dL 10/15/2015 Comp Metabolic Bke013 GLOB 3.1 g/dL 10/15/2015 Comp Metabolic Pss186 A/G Ratio 1.4 Ratio 10/15/2015 Comp Metabolic Cxx020 Osmo 271 mOsmo 10/15/2015 Comp Metabolic New805 NA 135 mEq/L 10/15/2015 Comp Metabolic Zbt008 K 3.5 mEq/L 10/15/2015 Comp Metabolic Kws346 CL 100 mEq/L 10/15/2015 Comp Metabolic Ltr038 CO2 29.0 mEq/L 10/15/2015 Comp Metabolic Trg944 ANION GAP 10 10/15/2015 Comp Metabolic Fvx548 GLUCOSE 88 mg/dL 10/15/2015 Comp Metabolic Yxl651 Creat 0.9 mg/dL 10/15/2015 Comp Metabolic Huh919 eGFR 67 ml/min/1.73m2 10/15/2015 Comp Metabolic Mof860 BUN 16 mg/dL 10/15/2015 Comp Metabolic Hfe573 B/C Ratio 17.8 Ratio 10/15/2015 Comp Metabolic Dqi070 CALCIUM 9.4 mg/dL 10/15/2015 Comp Metabolic Zbo086 ALK PHOS 96 U/L 10/15/2015 Comp Metabolic Yqh912 AST(SGOT) 15 U/L 10/15/2015 Comp Metabolic Bxv637 ALT(SGPT) 14 U/L 10/15/2015 Comp Metabolic Hjh699 BILI T 0.4 mg/dL 10/15/2015 Comp Metabolic Umh736 ALBUMIN 4.2 g/dL 10/15/2015 Comp Metabolic Oiy903 TPRO 7.2 g/dL 10/15/2015 Comp Metabolic Dmo385 GLOB 3.1 g/dL 10/15/2015 Comp Metabolic Zov628 A/G Ratio 1.4 Ratio 10/15/2015 Comp Metabolic Ewq628 Osmo 271 mOsmo 10/15/2015 Magnesium Ord90 Mag 2.2 mg/dL 10/15/2015 Magnesium Ord90 Mag 1.9 mg/dL 09/05/2015 Comp Metabolic Dtt526 NA 138 mEq/L 09/05/2015 Comp Metabolic Xjq401 K 3.7 mEq/L 09/05/2015 Comp Metabolic Hfq675 CL 99 mEq/L 09/05/2015 Comp Metabolic Kbh477 CO2 30.0 mEq/L 09/05/2015 Comp Metabolic Otp489 ANION GAP 13 09/05/2015 Comp Metabolic Sir180 GLUCOSE 97 mg/dL 09/05/2015 Comp Metabolic Ypk645 Creat 1.1 mg/dL 09/05/2015 Comp Metabolic Hru920 eGFR 54 ml/min/1.73m2 09/05/2015 Comp Metabolic Wyw606 BUN 18 mg/dL 09/05/2015 Comp Metabolic Sdg947 B/C Ratio 16.7 Ratio 09/05/2015 Comp Metabolic Kdk457 CALCIUM 9.6 mg/dL 09/05/2015 Comp Metabolic Ydh431 ALK PHOS 96 U/L 09/05/2015 Comp Metabolic Fjl326 AST(SGOT) 15 U/L 09/05/2015 Comp Metabolic Rwi996 ALT(SGPT) 14 U/L 09/05/2015 Comp Metabolic Iuj974 BILI T 0.5 mg/dL 09/05/2015 Comp Metabolic Xnf649 ALBUMIN 4.1 g/dL 09/05/2015 Comp Metabolic Gcd911 TPRO 7.0 g/dL 09/05/2015 Comp Metabolic Ywy104 GLOB 3.0 g/dL 09/05/2015 Comp Metabolic Ekz088 A/G Ratio 1.4 Ratio 09/05/2015 Comp Metabolic Gla367 Osmo 277 mOsmo 09/05/2015 Vitamin D 25 Oh Ysg7934 VITAMIN D, 25 HYDROXY 22.39 ng/mL Magnesium Ord90 Mag 2.0 mg/dL 06/11/2015 Tsh Ord6 hTSH II 3.52 uIU/mL 06/11/2015 Comp Metabolic Hnt109 NA 135 mEq/L 06/11/2015 Comp Metabolic Ofp071 K 4.3 mEq/L 06/11/2015 Comp Metabolic Gzy339 CL 103 mEq/L 06/11/2015 Comp Metabolic Vvm608 CO2 25.0 mEq/L 06/11/2015 Comp Metabolic Ixv295 ANION GAP 11 06/11/2015 Comp Metabolic Eli350 GLUCOSE 75 mg/dL 06/11/2015 Comp Metabolic Coc550 Creat 0.9 mg/dL 06/11/2015 Comp Metabolic Bat106 eGFR 69 ml/min/1.73m2 06/11/2015 Comp Metabolic Kzp395 BUN 22 mg/dL 06/11/2015 Comp Metabolic Qfo939 B/C Ratio 25.3 Ratio 06/11/2015 Comp Metabolic Ioa787 CALCIUM 9.2 mg/dL 06/11/2015 Comp Metabolic Rqe457 ALK PHOS 88 U/L 06/11/2015 Comp Metabolic Mmf421 AST(SGOT) 13 U/L 06/11/2015 Comp Metabolic Iky020 ALT(SGPT) 15 U/L 06/11/2015 Comp Metabolic Nrc892 BILI T 0.4 mg/dL 06/11/2015 Comp Metabolic Wfn528 ALBUMIN 3.7 g/dL 06/11/2015 Comp Metabolic Pfb514 TPRO 6.6 g/dL 06/11/2015 Comp Metabolic Kdk073 GLOB 2.9 g/dL 06/11/2015 Comp Metabolic Jto180 A/G Ratio 1.3 Ratio 06/11/2015 Comp Metabolic Cta299 Osmo 272 mOsmo 06/11/2015 Free T4 Qdt073 FREE T4 0.95 ng/dL 06/11/2015 Cbc With [...] 31.3 pg 06/11/2015 Cbc With Differential Ord2 [place]% 7.4 % 06/11/2015 Cbc With Differential Ord2 [...] 2.57 K/ul 06/11/2015 Cbc With Differential Ord2 [place] ABS# 0.9 K/ul 06/11/2015 Cbc With Differential [...] 13.8 % 11/16/2014 Vitamin D 25 Oh Tar9793 VITAMIN D, 25 HYDROXY 22.85 ng/mL Lipid Ord30 CHOL 206 mg/dL 11/16/2014 Lipid Ord30 HDL 49.0 mg/dl 11/16/2014 Lipid Ord30 TRIG 104 mg/dL 11/16/2014 Lipid Ord30 LDL 136 mg/dL 11/16/2014 Lipid Ord30 C/HDL 4.2 Ratio 11/16/2014 Tsh Ord6 hTSH II 2.05 uIU/mL 11/16/2014 Comp Metabolic Xyc458 NA 138 mEq/L 11/16/2014 Comp Metabolic Uib305 K 4.0 mEq/L 11/16/2014 Comp Metabolic Fbn892 CL 104 mEq/L 11/16/2014 Comp Metabolic Std545 CO2 27.0 mEq/L 11/16/2014 Comp Metabolic Bjs721 ANION GAP 11 11/16/2014 Comp Metabolic Gkt556 GLUCOSE 94 mg/dL 11/16/2014 Comp Metabolic Svl833 Creat 0.9 mg/dL 11/16/2014 Comp Metabolic Okt197 eGFR 64 ml/min/1.73m2 11/16/2014 Comp Metabolic Iuf168 BUN 12 mg/dL 11/16/2014 Comp Metabolic Mir700 B/C Ratio 12.9 Ratio 11/16/2014 Comp Metabolic Xkw042 CALCIUM 9.4 mg/dL 11/16/2014 Comp Metabolic Tse636 ALK PHOS 88 U/L 11/16/2014 Comp Metabolic Cau625 AST(SGOT) 14 U/L 11/16/2014 Comp Metabolic Dvn231 ALT(SGPT) 12 U/L 11/16/2014 Comp Metabolic Gvf372 BILI T 0.6 mg/dL 11/16/2014 Comp Metabolic Ivf465 ALBUMIN 3.7 g/dL 11/16/2014 Comp Metabolic Kbk810 TPRO 6.3 g/dL 11/16/2014 Comp Metabolic Xkm208 GLOB 2.6 g/dL 11/16/2014 Comp Metabolic Jam482 A/G Ratio 1.4 Ratio 11/16/2014 Comp Metabolic Nfv803 Osmo 275 mOsmo 11/16/2014 %Hba1C Awa158 % HbA1c 80847-2 5.7 % 11/16/2014 %Hba1C Big350 Gluc Ave 117 mg/dL 11/16/2014 GFR CALC 7491683 GFR AA >60 ML/MIN 04/12/2013 GFR CALC 3338816 GFR NON-AA >60 ML/MIN 04/12/2013 TSH 9354155 TSH 2.194 uIU/ML 04/12/2013 VIT B 12 4191896 VIT B 12 415 PG/ML 04/12/2013 CBC 5194023 WBC 8.8 10e9/L 04/12/2013 CBC 0232598 RBC 4.59 10e12/L 04/12/2013 CBC 1955361 HGB 14.3 g/dL 04/12/2013 CBC 9085685 HCT DET 42.4 % 04/12/2013 CBC 4644563 MCV 92.4 fL 04/12/2013 CBC 0242804 MCH 31.2 pg 04/12/2013 CBC 7241650 MCHC 33.7 g/dL 04/12/2013 CBC 0928952 PLT 213 10e9/L 04/12/2013 CBC 9691395 MPV 12.8 fL 04/12/2013 CBC 4610129 LULU % 61.8 % 04/12/2013 CBC 3027193 LY % 29.2 % 04/12/2013 CBC 8265715 MON % 7.2 % 04/12/2013 CBC 8002123 EOS % 1.3 % 04/12/2013 CBC 8204203 BASO % 0.5 % 04/12/2013 CBC 3669577 RDW 12.6 % 04/12/2013 CBC 3670026 ABS LULU 5.44 10e9/L 04/12/2013 CBC 3540522 ABS LYMPH 2.57 10e9/L 04/12/2013 CBC 2776039 ABS MONO 0.63 10e9/L 04/12/2013 CBC 0052943 ABS EOS 0.11 10e9/L 04/12/2013 CBC 9024280 ABS BASO 0.04 10e9/L 04/12/2013 CBC 2894063 RDW-SD 41.3 fL 04/12/2013 FREE T4 1658570 FREE T4 1.09 NG/DL 04/12/2013 A1C HPLC 5415776 A1C HPLC 47105-5 5.4 % 04/12/2013 CHEM 14 4339184 AST 12 U/L 04/12/2013 CHEM 14 2639776 ALT 11 IU/L 04/12/2013 CHEM 14 6158264 BUN 14 MG/DL 04/12/2013 CHEM 14 0410141 ALBUMIN 4.1 GM/DL 04/12/2013 CHEM 14 6598167 CHLORIDE 105 MMOL/L 04/12/2013 CHEM 14 9702656 BILI TOT 0.6 MG/DL 04/12/2013 CHEM 14 1531131 ALK PHOS 81 U/L 04/12/2013 CHEM 14 6665904 SODIUM 138 MMOL/L 04/12/2013 CHEM 14 3818635 CREATININE 0.86 MG/DL 04/12/2013 CHEM 14 2973052 CALCIUM 9.8 MG/DL 04/12/2013 CHEM 14 7313517 POTASSIUM 4.1 MMOL/L 04/12/2013 CHEM 14 0722315 PROT TOT 6.6 GM/DL 04/12/2013 CHEM 14 5941137 GLUCOSE 112 MG/DL 04/12/2013 CHEM 14 9532497 BICARB 27 MMOL/L 04/12/2013 CHEM 14 8162987 ANION GAP 6 MEQ/L 04/12/2013 LIPID GRP HDL TEST 55 MG/DL 04/12/2013 LIPID GRP TRIG 107 MG/DL 04/12/2013 LIPID GRP TEST LDL 193 MG/DL 04/12/2013 LIPID GRP CHOL 269 MG/DL 04/12/2013 LIPID GRP RCHOL/HDL 4.89 RATIO 04/12/2013 NICOT QN S 6033765 NICOTIN S < 2.0 NG/ML 03/07/2012 NICOT QN S 0042722 XCOTININ S < 2.0 NG/ML 03/07/2012 CBC 6889029 WBC 8.1 10e9/L 03/02/2012 CBC 9627258 RBC 4.44 10e12/L 03/02/2012 CBC 1179523 HGB 13.8 g/dL 03/02/2012 CBC 4204287 HCT DET 41.3 % 03/02/2012 CBC 7950014 MCV 93.0 fL 03/02/2012 CBC 5356417 MCH 31.1 pg 03/02/2012 CBC 6498626 MCHC 33.4 g/dL 03/02/2012 CBC 6535703 PLT 188 10e9/L 03/02/2012 CBC 4648937 MPV 14.3 fL 03/02/2012 CBC 3150885 LULU % 61.5 % 03/02/2012 CBC 9502350 LY % 28.8 % 03/02/2012 CBC 8087030 MON % 8.0 % 03/02/2012 CBC 8394855 EOS % 1.1 % 03/02/2012 CBC 5621837 BASO % 0.6 % 03/02/2012 CBC 0736868 RDW 14.0 % 03/02/2012 CBC 0943087 ABS LULU 4.98 10e9/L 03/02/2012 CBC 3350492 ABS LYMPH 2.33 10e9/L 03/02/2012 CBC 0571878 ABS MONO 0.65 10e9/L 03/02/2012 CBC 9561577 ABS EOS 0.09 10e9/L 03/02/2012 CBC 2451846 ABS BASO 0.05 10e9/L 03/02/2012 CBC 6811803 RDW-SD 46.3 fL 03/02/2012 LIPID GRP HDL TEST 37 MG/DL 03/02/2012 LIPID GRP TRIG 136 MG/DL 03/02/2012 LIPID GRP TEST LDL 106 MG/DL 03/02/2012 LIPID GRP CHOL 170 MG/DL 03/02/2012 LIPID GRP RCHOL/HDL 4.59 RATIO 03/02/2012 GFR CALC 3253475 GFR AA >60 ML/MIN 03/02/2012 GFR CALC 7256972 GFR NON-AA >60 ML/MIN 03/02/2012 FREE T4 4080379 FREE T4 1.09 NG/DL 03/02/2012 A1C HPLC 1632827 A1C HPLC 52746-9 5.4 % 03/02/2012 CHEM 14 6938940 AST 17 U/L 03/02/2012 CHEM 14 3939109 ALT 22 IU/L 03/02/2012 CHEM 14 7264734 BUN 15 MG/DL 03/02/2012 CHEM 14 7950113 ALBUMIN 4.0 GM/DL 03/02/2012 CHEM 14 6974999 CHLORIDE 107 MMOL/L 03/02/2012 CHEM 14 0493293 BILI TOT 0.4 MG/DL 03/02/2012 CHEM 14 7817787 ALK PHOS 83 U/L 03/02/2012 CHEM 14 8704641 SODIUM 141 MMOL/L 03/02/2012 CHEM 14 7244923 CREATININE 0.86 MG/DL 03/02/2012 CHEM 14 1771130 CALCIUM 9.5 MG/DL 03/02/2012 CHEM 14 9847669 POTASSIUM 4.0 MMOL/L 03/02/2012 CHEM 14 8789787 PROT TOT 6.6 GM/DL 03/02/2012 CHEM 14 0321806 GLUCOSE 102 MG/DL 03/02/2012 CHEM 14 7264019 BICARB 28 MMOL/L 03/02/2012 CHEM 14 3573661 ANION GAP 6 MEQ/L 03/02/2012 TSH 8107860 TSH 2.320 uIU/ML 03/02/2012 GFR CALC 9771356 GFR AA >60 ML/MIN 07/03/2011 GFR CALC 3674207 GFR NON-AA 54.0L ML/MIN 07/03/2011 CHEM 14 6648687 AST 15 U/L 07/03/2011 CHEM 14 7830773 ALT 30 IU/L 07/03/2011 CHEM 14 3953892 BUN 19 MG/DL 07/03/2011 CHEM 14 9917298 ALBUMIN 4.2 GM/DL 07/03/2011 CHEM 14 9465786 CHLORIDE 100 MMOL/L 07/03/2011 CHEM 14 5164812 BILI TOT 0.8 MG/DL 07/03/2011 CHEM 14 2649254 ALK PHOS 74 U/L 07/03/2011 CHEM 14 2446010 SODIUM 137 MMOL/L 07/03/2011 CHEM 14 9751140 CREATININE 1.03 MG/DL 07/03/2011 CHEM 14 7502366 CALCIUM 9.6 MG/DL 07/03/2011 CHEM 14 6413930 POTASSIUM 4.4 MMOL/L 07/03/2011 CHEM 14 3278024 PROT TOT 6.7 GM/DL 07/03/2011 CHEM 14 1208789 GLUCOSE 106 MG/DL 07/03/2011 CHEM 14 2711951 BICARB 28 MMOL/L 07/03/2011 CHEM 14 3746726 ANION GAP 9 MEQ/L 07/03/2011 URINALYSIS NONAUTO W/O SCOPE 41833 Specific [place] 1.010 DateTime(Free Text in Aprima) URINALYSIS NONAUTO W/O SCOPE 21944 PH 5 DateTime(Free Text in Apr[employer]) URINALYSIS NONAUTO W/O SCOPE 17057 GLUCOSE neg DateTime( Free Text in Apr[employer]) URINALYSIS NONAUTO W/O SCOPE 57999 Protein neg DateTime( Free Text in Apr[employer]) URINALYSIS NONAUTO W/O SCOPE 43463 Blood 1+ DateTime(Free Text in [employer]) URINALYSIS NONAUTO W/O SCOPE 82466 Bilirubin neg DateTime(Free Text in Apr[employer]) URINALYSIS NONAUTO W/O SCOPE 38372 Ketones neg DateTime( Free Text in Apr[employer]) URINALYSIS NONAUTO W/O SCOPE 50640 Urobilinogen neg DateTime(Free Text in Apr[employer]) URINALYSIS NONAUTO W/O SCOPE 67561 Nitrite neg DateTime( Free Text in [employer]) URINALYSIS NONAUTO W/O SCOPE 51027 Leukocytes neg DateTime(Free Text in Aprima) Review [...] [id number] 03/21/2018 URINALYSIS NONAUTO W/O SCOPE CPT-4: 36660 01/20/2018 ADMIN INFLUENZA VIRUS VAC CPT-4: G0008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 showed partially calcified aneurysm [...] being re-exposed to the environment of the care home. SCHEDULE MAMMOGRAM (NOT THIS WEDNESDAY, NEXT [...] for fasting labs. Biaxin prescription sent to [facility]-it is twice daily x 10 days. Take [...] by Dr. Cueto. 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 Sinusitis - Pt has acute infection - pain in face, maxillary region, Pt informed to use decongestant, RX given to patient, sinus rinses also recommended. Call if symptoms do not show improvement. Kenalog injection today in the office. . Xbfmp-[id number]-akgy lasix 40mg daily x 3 days with potassium 20mEq BID x 3 days, then resume daily PRN schedule. If symptoms do not improve, we will obtain a chest xray. Recommend screening mammogram . PT GIVEN ROUTINE ALLERGY SHOTS FOR DESENSITIZATION . Kenalog injection
--- NOTE | 2018-06-03 07:38 | Ophthalmologist Pre-Op Note ---
Pre-Operative Progress Note H&P Reviewed The H&P was reviewed, patient examined and no changes noted. Date H&P Reviewed: Jun 03, 2018 Time H&P Reviewed: 07:37 Pre-Op Dx Cataract, Left Eye SAMMY BELTRAN MD Jun 03, 2018 07:37
--- OUTSIDE RECORDS SUMMARY | 2018-06-03 07:44 | XMS REPORT | CCD ---
Author Author [facility] Address [address] [place] [address] Phone Care Team Providers Care Crosscutter Rolled Glass Name Role Phone PP Unavailable CCM Unavailable Summary Purpose Interface Exchange Insurance Providers Payer name Policy type / Coverage type Covered green party ID Effective Begin Date Effective End Date WPS Medicare Part B Medicare Part B [id number] 2017 Unknown [employer] Medicare Part B [id number] Unknown Family history Father Diagnosis Age At Onset No Family Disease Entered N/A Runs in the family Diagnosis Age At Onset Diabetes Unknown Mother Diagnosis Age At Onset No Family Disease Entered N/A Social History Social History Element Codes Description Effective Dates Employment 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 Unknown Has never used illegal drugs 11/06/2010 Allergies, Adverse Reactions, Alerts Substance Reaction Codes Entered Date Inactivated Date Status * NO KNOWN FOOD ALLERGIES Unknown 04/07/2011 No Inactive Date Active Levaquin RxNorm: 51274 11/20/2010 No Inactive Date Active * NO [...] Codes Condition Status Onset Date Resolved Date Pleurodynia ICD-9: 786.50 ICD-10: R07.81 Active 03/18/2018 [...] ICD-10: I10 Active 10/12/2017 Unknown Encounter for general adult medical examination with abnormal findings ICD-9: V70.0 ICD-10: Z00.01 Active 12/08/2015 Unknown Encounter for screening mammogram for malignant [...] ICD-9 : 461.9 Active 03/17/2011 Unknown 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 Active 03/17/2011 Unknown Obesity ICD-9: [...] Problems Condition Codes Effective Dates Condition Status Pleurodynia ICD-9: 786.50 ICD-10: R07.81 03/18/2018 Active [...] 401.1 ICD-10: I10 10/12/2017 Active Encounter for general adult medical examination with abnormal findings ICD-9: V70.0 ICD-10: Z00.01 12/08/2015 Active Encounter for screening mammogram for malignant [...] SINUSITIS ICD-9 : 461.9 03/17/2011 Active 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 03/17/2011 Active Obesity ICD-9: 278.00 [...] Start Date Stop Date Status Fill Instructions doxycycline hyclate 100 mg tablet RxNorm: 9527201 1 Tablet(s) PO BID 04/01/2018 03/31/2018 Inactive doxycycline hyclate 100 mg tablet RxNorm: 0207083 1 Tablet(s) PO BID 04/01/2018 04/10/2018 Inactive ketorolac 60 mg/2 mL intramuscular solution RxNorm: 7129025 Milliliter(s) IM 03/21/2018 03/21/2018 Inactive Voltaren 1 % topical gel RxNorm: 006362 4 Gram(s) TOP QID 03/1103/10/2018 Inactive Voltaren 1 % topical gel RxNorm: 496866 4 Gram(s) TOP QID 03/1104/09/2018 Inactive Xanax 0.25 mg tablet RxNorm: 821656 Tablet(s) PO TAKE ONE TABLET BY MOUTH EVERY 4 TO 6 HOURS NEEDED 03/09/20182018 Active potassium chloride ER 10 mEq tablet,extended release RxNorm: 229353 TAKE 2 CAPSULES BY MOUTH TWICE DAILY 02/28/2018 No Stop Date Active Levaquin 500 mg tablet RxNorm: 884924 1 Tablet(s) PO daily 12/201701/31/2018 Inactive Macrobid 100 mg capsule RxNorm: 746867 1 Capsule(s) PO BID 01/06/2018 Inactive Macrobid 100 mg capsule RxNorm: 649332 1 Capsule(s) PO BID 12/30/2017 Inactive ondansetron 4 mg disintegrating tablet RxNorm: 151468 1 Tablet(s) PO Q4 PRN 10/22/2017 No Stop Date Active Xanax 0.25 mg tablet RxNorm: 382968 Tablet(s) PO TAKE ONE TABLET BY MOUTH EVERY 4 TO 6 HOURS NEEDED 07/29/20172017 Inactive Levaquin 500 mg tablet RxNorm: 500288 1 Tablet(s) PO daily 07/14/2017 Inactive Levaquin 500 mg tablet RxNorm: 997806 1 Tablet(s) PO daily 07/21/2017 Inactive Xarelto 20 mg tablet RxNorm: 5442669 1 Tablet(s) PO daily 06/2812/24/2017 Inactive Xarelto 20 mg tablet RxNorm: 9144479 1 Tablet(s) PO daily 06/2806/27/2017 Inactive potassium chloride ER 10 mEq tablet,extended release RxNorm: 933222 2 Capsule(s) PO BID 06/28/2017 12/24/2017 Inactive potassium chloride ER 10 mEq tablet,extended release RxNorm: 014746 2 Capsule(s) PO BID 06/28/2017 06/27/2017 Inactive prednisone 10 mg tablet RxNorm: 255641 Tablet(s) PO UD 201703/20/2018 Inactive 6,5,4,3,2,1 Vitamin D2 50,000 unit capsule RxNorm: 643663 1 Capsule(s) PO QW 04/26/2017 07/24/2017 Inactive Lexapro 10 mg tablet RxNorm: 565855 1 Tablet(s) PO QHS 201601/11/2017 Inactive Lexapro 10 mg tablet RxNorm: 167984 1 Tablet(s) PO QHS 201604/25/2017 Inactive famotidine 20 mg tablet RxNorm: 324388 1 Tablet(s) PO BID 01/0601/05/2017 Inactive famotidine 20 mg tablet RxNorm: 256869 1 Tablet(s) PO BID 01/0604/25/2017 Inactive doxazosin 2 mg tablet RxNorm: 774611 TAKE ONE-HALF TABLET BY MOUTH TWICE DAILY 12/17/2016 04/25/2017 Inactive Xanax 0.25 mg tablet RxNorm: 204999 Tablet(s) PO TAKE ONE TABLET BY MOUTH EVERY 4 TO 6 HOURS NEEDED 11/12/20162016 Inactive Xanax 0.25 mg tablet RxNorm: 168312 Tablet(s) PO TAKE ONE TABLET BY MOUTH EVERY 4 TO 6 HOURS NEEDED 11/12/20162016 Inactive Levaquin 500 mg tablet RxNorm: 879021 1 Tablet(s) PO daily 10/28/2016 Inactive Levaquin 500 mg tablet RxNorm: 014172 1 Tablet(s) PO daily 11/04/2016 Inactive Pyridium 200 mg tablet RxNorm: 5181493 1 Tablet(s) PO TID PRN 10/29/2016 04/25/2017 Inactive potassium chloride ER 10 mEq tablet,extended release RxNorm: 986225 2 Capsule(s) PO BID 10/20/2016 02/16/2017 Inactive potassium chloride ER 10 mEq tablet,extended release RxNorm: 376709 2 Capsule(s) PO BID 10/16/2016 10/19/2016 Inactive potassium chloride ER 10 mEq tablet,extended release RxNorm: 117511 1 Capsule(s) PO daily 10/15/2016 10/15/2016 Inactive potassium chloride 40 mEq/15 mL oral liquid RxNorm: 286980 7.5 Milliliter(s) PO BID 10/05/2016 10/11/2016 Inactive potassium chloride 40 mEq/15 mL oral liquid RxNorm: 338170 7.5 Milliliter(s) PO BID 10/05/2016 10/04/2016 Inactive potassium chloride 40 mEq/15 mL oral liquid RxNorm: 094978 7.5 Milliliter(s) PO BID 10/05/2016 10/04/2016 Inactive doxycycline hyclate 100 mg tablet RxNorm: 215397 1 Tablet(s) PO BID 09/30/2016 10/09/2016 Inactive Vitamin D2 50,000 unit capsule RxNorm: 956036 1 Capsule(s) PO QW 09/15/2016 09/14/2016 Inactive Vitamin D2 50,000 unit capsule RxNorm: 366215 1 Capsule(s) PO QW 09/15/2016 12/13/2016 Inactive doxycycline hyclate 100 mg tablet RxNorm: 149110 1 Tablet(s) PO BID 08/11/2016 08/24/2016 Inactive doxycycline hyclate 100 mg tablet RxNorm: 620152 1 Tablet(s) PO BID 07/24/2016 07/28/2016 Inactive mupirocin 2 % topical ointment RxNorm: 070225 1 Application TOP BID 07/24/2016 07/23/2016 Inactive mupirocin 2 % topical ointment RxNorm: 762511 1 Application TOP BID 07/24/2016 07/30/2016 Inactive doxycycline hyclate 100 mg tablet RxNorm: 359964 1 Tablet(s) PO BID 07/24/2016 07/23/2016 Inactive potassium chloride ER 10 mEq tablet,extended release RxNorm: 410255 2 Tablet(s) PO BID 07/20/2016 10/04/2016 Inactive Lasix 20 mg tablet RxNorm: 065402 1 Tablet(s) PO PRN 2016 No Stop Date Active PRN for swelling Xanax 0.25 mg tablet RxNorm: 984303 Tablet(s) PO TAKE ONE TABLET BY MOUTH EVERY 4 TO 6 HOURS NEEDED 06/19/20162016 Inactive prednisone 20 mg tablet RxNorm: 159222 1 Tablet(s) PO BID 06/0306/07/2016 Inactive potassium chloride ER 10 mEq tablet,extended release RxNorm: 836459 2 Tablet(s) PO BID 05/06/2016 05/05/2016 Inactive potassium chloride ER 10 mEq tablet,extended release RxNorm: 747881 2 Tablet(s) PO BID 05/06/2016 06/04/2016 Inactive Levaquin 500 mg tablet RxNorm: 678189 1 Tablet(s) PO daily 03/30/2016 Inactive Levaquin 500 mg tablet RxNorm: 569711 1 Tablet(s) PO daily 04/06/2016 Inactive prednisone 20 mg tablet RxNorm: 069895 1 Tablet(s) PO BID 02/2402/29/2016 Inactive prednisone 20 mg tablet RxNorm: 758081 1 Tablet(s) PO BID 02/2402/24/2016 Inactive Flonase 50 mcg/actuation nasal spray,suspension RxNorm: 8935320 2 [place] NASAL daily 02/18/2016 02/27/2016 Inactive doxycycline hyclate 100 mg tablet RxNorm: 315805 1 Tablet(s) PO BID 02/18/2016 02/27/2016 Inactive doxycycline hyclate 100 mg tablet RxNorm: 165990 1 Tablet(s) PO BID 02/18/2016 02/17/2016 Inactive cyclobenzaprine 5 mg tablet RxNorm: 401375 1-2 Tablet(s) PO TID as needed 02/12/2016 02/21/2016 Inactive cyclobenzaprine 5 mg tablet RxNorm: 609914 1-2 Tablet(s) PO TID as needed 02/12/2016 02/11/2016 Inactive Xanax 0.25 mg tablet RxNorm: 817664 Tablet(s) PO TAKE ONE TABLET BY MOUTH EVERY 4 TO 6 HOURS NEEDED 01/20/20162016 Inactive (Appended: Controlled substance eRx refill - RxReferenceNumber: [id number]) metoprolol tartrate 25 mg tablet RxNorm: 999989 1/2 Tablet(s) PO BID 12/13/2015 04/10/2016 Inactive doxazosin 2 mg tablet RxNorm: 867709 1 Tablet(s) PO QHS 201512/16/2016 Inactive metoprolol tartrate 25 mg tablet RxNorm: 656488 1/2 Tablet(s) PO BID 12/09/2015 12/12/2015 Inactive Vitamin D2 50,000 unit capsule RxNorm: 166460 1 Capsule(s) PO QW 12/09/2015 02/06/2016 Inactive Lasix 20 mg tablet RxNorm: 548259 1 Tablet(s) PO PRN 201507/05/2016 Inactive PRN for swelling potassium chloride ER 20 mEq tablet,extended release RxNorm: 431052 1 Tablet(s) PO daily as needed When taking lasix 10/03/2015 04/26/2016 Inactive cyanocobalamin (vit B-12) 1,000 mcg/mL injection solution RxNorm: 213136 Milliliter(s) Inj 09/13/2015 09/13/2015 Inactive doxycycline hyclate 100 mg tablet RxNorm: 871500 1 Tablet(s) PO BID 09/12/2015 09/18/2015 Inactive potassium chloride ER 10 mEq tablet,extended release RxNorm: 529808 1 Tablet(s) PO daily as needed When taking lasix 09/04/2015 10/02/2015 Inactive Lasix 20 mg tablet RxNorm: 338749 1 Tablet(s) PO PRN 201510/02/2015 Inactive PRN for swelling doxycycline hyclate 100 mg tablet RxNorm: 640792 1 Tablet(s) PO BID 08/26/2015 08/25/2015 Inactive doxycycline hyclate 100 mg tablet RxNorm: 661366 1 Tablet(s) PO BID 08/26/2015 09/01/2015 Inactive mupirocin 2 % topical ointment RxNorm: 636973 1 Application TOP BID 08/02/2015 08/01/2015 Inactive mupirocin 2 % topical ointment RxNorm: 773502 1 Application TOP BID 08/02/2015 08/08/2015 Inactive metoprolol tartrate 50 mg tablet RxNorm: 551642 2 tabs in morning and 1 tablet at night dose PO as directed 06/13/201510/23 Inactive 2 tabs in the morning, and 1 in the evening Benicar 40 mg tablet RxNorm: 183464 1 Tablet(s) PO daily 201510/21/2015 Inactive Benicar 40 mg tablet RxNorm: 955308 1 Tablet(s) PO daily 201506/12/2015 Inactive Vitamin D2 50,000 unit capsule RxNorm: 062457 1 Capsule(s) PO QW 06/11/2015 12/07/2015 Inactive Xanax 0.25 mg tablet RxNorm: 724101 Tablet(s) PO TAKE ONE TABLET BY MOUTH EVERY 4 TO 6 HOURS NEEDED 06/06/20152015 Inactive (Appended: Controlled substance eRx refill - RxReferenceNumber: [id number]) Levaquin 500 mg tablet RxNorm: 880737 1 Tablet(s) PO daily 11/201510/28/2015 Inactive Kenalog 40 mg/mL suspension for injection RxNorm: 1717304 Milliliter(s) Inj 03/27/2015 03/27/2015 Inactive Kenalog 40 mg/mL suspension for injection RxNorm: 7556222 Milliliter(s) Inj 12/11/2014 12/11/2014 Inactive Vitamin D2 50,000 unit capsule RxNorm: 500297 1 Capsule(s) PO QW 12/05/2014 06/02/2015 Inactive [SAVINGS FOR NON-COVERED DRUGS -- BIN:[id number], PCN: ASPROD1, Group: XXXXX, ID# [id number], Questions: . THIS IS NOT INSURANCE.] Pradaxa 150 mg capsule RxNorm: 3953435 Capsule(s) PO BID 201409/08/2015 Inactive TAKE 1 CAPSULE BY MOUTH TWICE DAILY Vitamin D2 50,000 unit capsule RxNorm: 915429 1 Capsule(s) PO QW 12/04/2014 12/04/2014 Inactive [SAVINGS FOR NON-COVERED DRUGS -- BIN:014999, PCN: ASPROD1, Group: XXXXX, ID# [id number], Questions: . THIS IS NOT INSURANCE.] Lasix 20 mg tablet RxNorm: 780658 1 Tablet(s) PO PRN 201411/25/2014 Inactive PRN for swelling Levaquin 500 mg tablet RxNorm: 767979 1 Tablet(s) PO daily 01/201511/25/2014 Inactive Levaquin 500 mg tablet RxNorm: 716664 1 Tablet(s) PO daily 01/201512/02/2014 Inactive Lasix 20 mg tablet RxNorm: 341348 1 Tablet(s) PO PRN 201409/03/2015 Inactive PRN for swelling nitrofurantoin 100 mg capsule RxNorm: 990402 1 Capsule(s) PO BID 11/12/2014 11/17/2014 Inactive Macrobid 100 mg capsule RxNorm: 560829 1 Capsule(s) PO BID 11/18/2014 Inactive Macrobid 100 mg capsule RxNorm: 041410 1 Capsule(s) PO BID 11/11/2014 Inactive Levaquin 500 mg tablet RxNorm: 079346 1 Tablet(s) PO daily 11/11/2014 Inactive metoprolol tartrate 50 mg tablet RxNorm: 645911 2 tabs in morning and 1 tablet at night dose PO as directed 10/25/201405/21 Inactive 2 tabs in the morning, and 1 in the evening Xanax 0.25 mg tablet RxNorm: 406085 Tablet(s) PO TAKE ONE TABLET BY MOUTH EVERY 4 TO 6 HOURS NEEDED 08/30/20142014 Inactive (Appended: Controlled substance eRx refill - RxReferenceNumber: [id number]) Levaquin 500 mg tablet RxNorm: 418368 1 Tablet(s) PO daily 07/31/2014 Inactive Levaquin 500 mg tablet RxNorm: 644991 1 Tablet(s) PO daily 08/07/2014 Inactive Vitamin D2 50,000 unit capsule RxNorm: 926808 1 Capsule(s) PO QW 05/16/2014 2014 Inactive [SAVINGS FOR NON-COVERED DRUGS -- BIN:556492, PCN: ASPROD1, Group: XXXXX, ID# [id number], Questions: . THIS IS NOT INSURANCE.] Zithromax 500 mg tablet RxNorm: 126093 1 Tablet(s) PO daily 05/10/2014 Inactive Zithromax 500 mg tablet RxNorm: 509134 1 Tablet(s) PO daily 05/15/2014 Inactive [SAVINGS FOR NON-COVERED DRUGS -- BIN:600090, PCN: ASPROD1, Group: XXXXX, ID# [id number], Questions: . THIS IS NOT INSURANCE.] prednisone 20 mg tablet RxNorm: 941366 Tablet(s) PO 3daily x 2days, then 2daily x2days, then 1daily x2days, then 1/2 daily x 2days then stop 03/13/2014 2014 Inactive [SAVINGS FOR UNINSURED PATIENTS -- BIN:401214, PCN: ASPROD1, Group: [id number], ID# [id number], Process claim through [employer], for questions: [phone]. THIS IS NOT INSURANCE.] Levaquin 500 mg tablet RxNorm: 518155 1 Tablet(s) PO daily TAKE ONE TABLET BY MOUTH ONCE DAILY take with benadryl 03/13/2014 03/22/2014 Inactive [SAVINGS FOR UNINSURED PATIENTS -- BIN:461879, PCN: ASPROD1, Group: [id number], ID# [id number], Process claim through [employer], for questions: . THIS IS NOT INSURANCE.] Levaquin 500 mg tablet RxNorm: 815882 1 Tablet(s) PO daily TAKE ONE TABLET BY MOUTH ONCE DAILY take with benadryl 02/26/2014 03/07/2014 Inactive pt to filler picker today 01/06/14 [SAVINGS FOR UNINSURED PATIENTS -- BIN:571716, PCN: ASPROD1, Group: [id number], ID# [id number], Process claim through [employer], for questions: [phone]. THIS IS NOT INSURANCE.] Xanax 0.25 mg tablet RxNorm: 441585 Tablet(s) PO TAKE ONE TABLET BY MOUTH EVERY 4 TO 6 HOURS NEEDED 02/05/20142013 Inactive (Appended: Controlled substance eRx refill - RxReferenceNumber: [id number]) prednisone 20 mg tablet RxNorm: 028523 2 Tablet(s) PO QAM 01/0601/10/2014 Inactive call pt when ready for filler picker today 01/06/14 Levaquin 500 mg tablet RxNorm: 884038 1 Tablet(s) PO daily TAKE ONE TABLET BY MOUTH ONCE DAILY take with benadryl 01/06/2014 01/12/2014 Inactive pt to filler picker today 01/06/14 prednisone 20 mg tablet RxNorm: 432733 Tablet(s) PO 3daily x 2days, then 2daily x2days, then 1daily x2days, then 1/2 daily x 2days then stop 12/13/2013 03/12/2014 Inactive Levaquin 500 mg tablet RxNorm: 741387 1 Tablet(s) PO daily TAKE ONE TABLET BY MOUTH ONCE DAILY take with benadryl 12/13/2013 12/19/2013 Inactive Vitamin D2 50,000 unit capsule RxNorm: 430360 1 Capsule(s) PO QW 12/12/2013 03/11/2014 Inactive weekly x 12 weeks Vitamin D2 50,000 unit capsule RxNorm: 701734 1 Capsule(s) PO QW 12/12/2013 12/11/2013 Inactive metoprolol tartrate 50 mg tablet RxNorm: 564924 2 tabs in morning and 1 tablet at night dose PO as directed 11/03/201305/31 Inactive 2 tabs in the morning, and 1 in the evening Bactroban 2 % topical ointment RxNorm: 466080 1 Application TOP BID 10/30/2013 11/08/2013 Inactive Bactroban 2 % topical ointment RxNorm: 233241 1 Application TOP BID 10/30/2013 10/29/2013 Inactive Lasix 40 mg tablet RxNorm: 953197 1 Tablet(s) PO daily as needed 10/23/2013 2014 Inactive metoprolol tartrate 50 mg tablet RxNorm: 382642 1 Tablet(s) PO BID 08/28/2013 09/26/2013 Inactive 2 tabs in the morning, and 1 in the evening metoprolol tartrate 50 mg tablet RxNorm: 789960 1 Tablet(s) PO BID 08/28/2013 08/27/2013 Inactive 2 tabs in the morning, and 1 in the evening Lasix 40 mg tablet RxNorm: 626597 1 Tablet(s) PO daily 201310/22/2013 Inactive Lasix 40 mg tablet RxNorm: 1 Tablet(s) PO daily 201308/07/2013 Inactive potassium chloride ER 10 mEq tablet,extended release RxNorm: 558002 1 Tablet(s) PO BID 07/14/2013 2014 Inactive Lipitor 20 mg tablet RxNorm: 552386 1 Tablet(s) PO daily 201307/08/2014 Inactive generic ok Xanax 0.25 mg tablet RxNorm: 097199 Tablet(s) PO TAKE 1 TABLET BY MOUTH EVERY 4 TO 6 HOURS NEEDED 07/14/20132013 Inactive (Appended: Controlled substance eRx refill - RxReferenceNumber: [id number]|1|0|1) Xanax 0.25 mg tablet RxNorm: 095260 Tablet(s) PO TAKE ONE TABLET BY MOUTH EVERY 4 TO 6 HOURS NEEDED 07/14/20132013 Inactive (Appended: Controlled substance eRx refill - RxReferenceNumber: [id number]) metoprolol succinate ER 50 mg tablet,extended release 24 hr RxNorm: 691432 100mg q am 50 in even Tablet(s) PO 07/14/2013 Inactive Levaquin 500 mg tablet RxNorm: 226094 Tablet(s) PO TAKE ONE TABLET BY MOUTH ONCE DAILY 07/13/2013 12/12/2013 Inactive Levaquin 500 mg tablet RxNorm: 923193 Tablet(s) PO TAKE ONE TABLET BY MOUTH ONCE DAILY 07/13/2013 10/22/2013 Inactive Levaquin 500 mg tablet RxNorm: 166710 1 Tablet(s) PO daily 02/201305/22/2013 Inactive Levaquin 500 mg tablet RxNorm: 079560 1 Tablet(s) PO daily 05/15/2013 Inactive Lipitor 20 mg tablet RxNorm: 034987 1 Tablet(s) PO daily 201307/13/2013 Inactive generic ok Kenalog 40 mg/mL suspension for injection RxNorm: 1106566 1 Milliliter(s) Inj 04/14/2013 04/14/2013 Inactive Lipitor 20 mg tablet RxNorm: 225238 1 Tablet(s) PO daily 201304/16/2013 Inactive Lipitor 20 mg tablet RxNorm: 660802 1 Tablet(s) PO daily 201304/13/2013 Inactive metoprolol succinate ER 50 mg tablet,extended release 24 hr RxNorm: 256381 100mg q am 50 in even Tablet(s) PO 04/14/2013 Inactive Levaquin 500 mg tablet RxNorm: 058118 1 Tablet(s) PO daily 04/20/2013 Inactive Carafate 1 gram tablet RxNorm: 220974 1 Tablet(s) PO QID 201303/30/2013 Inactive Carafate 1 gram tablet RxNorm: 570145 1 Tablet(s) PO QID 201304/23/2013 Inactive Zithromax Z-Preston 250 mg tablet RxNorm: 942184 Tablet(s) PO zpack as directed 01/31/2013 04/12/2013 Inactive Zofran 4 mg tablet RxNorm: 245915 1 Tablet(s) PO Q6 PRN 12/0704/12/2013 Inactive Xanax 0.25 mg tablet RxNorm: 286164 Tablet(s) PO TAKE 1 TABLET BY MOUTH EVERY 4 TO 6 HOURS NEEDED 06/20/20122013 Inactive (Appended: Controlled substance eRx refill - RxReferenceNumber: [id number]|1|0|1) Xanax 0.25 mg tablet RxNorm: 138723 1 Tablet(s) PO Q4-6H q 4-6 hrs prn 06/20/2012 No Stop Date Active doxycycline monohydrate 100 mg tablet RxNorm: 843453 1 Tablet(s) PO BID 05/17/2012 05/26/2012 Inactive doxycycline monohydrate 100 mg tablet RxNorm: 858823 1 Tablet(s) PO BID 04/11/2012 04/20/2012 Inactive Kenalog 40 mg/mL Susp for Injection RxNorm: 0690795 1 Milliliter(s) Inj 04/11/2012 04/11/2012 Inactive metoprolol succinate ER 50 mg tablet,extended release 24 hr RxNorm: 383446 Tablet (s) PO TAKE 1 & 1/2 TABLETS BY MOUTH TWICE DAILY 02/01/2012 04/13/2013 Inactive Lipitor 40 mg tablet RxNorm: 012406 Tablet(s) PO TAKE 1 TABLET BY MOUTH EVERY DAY 02/01/2012 04/12/2013 Inactive Pradaxa 150 mg capsule RxNorm: 1610741 Capsule(s) PO 201112/03/2014 Inactive TAKE 1 CAPSULE BY MOUTH TWICE DAILY Xanax 0.25 mg tablet RxNorm: 514480 1 Tablet(s) PO Q4-6H q 4-6 hrs prn 12/28/2011 06/20/2012 Inactive metoprolol succinate ER 50 mg tablet,extended release 24 hr RxNorm: 502712 Tablet (s) PO 12/28/2011 01/31/2012 Inactive TAKE 1 & 1/2 TABLETS BY MOUTH TWICE DAILY Singulair 10 mg tablet RxNorm: 841595 Tablet(s) PO 12/28/2011 04/13/2013 Inactive TAKE ONE TABLET BY MOUTH DAILY clindamycin 150 mg capsule RxNorm: 238866 1 Capsule(s) PO QID 11/25/2011 12/01/2011 Inactive Influenza Virus Vaccine 0.5 mL RxNorm: IM 11/11/2011 11/11/2011 Inactive Pneumovax 23 25 mcg/0.5 mL Injection RxNorm: 318652 Milliliter(s) Inj 11/11/2011 11/11/2011 Inactive Biaxin 500 mg tablet RxNorm: 668474 1 Tablet(s) PO BID 201110/30/2011 Inactive Flagyl 500 mg tablet RxNorm: 603372 1 Tablet(s) PO TID 201109/03/2011 Inactive Flagyl 500 mg tablet RxNorm: 634675 1 Tablet(s) PO TID 201109/10/2011 Inactive doxycycline hyclate 100 mg tablet RxNorm: 491539 1 Tablet(s) PO BID 09/04/2011 09/10/2011 Inactive doxycycline hyclate 100 mg tablet RxNorm: 105693 1 Tablet(s) PO BID 09/04/2011 09/03/2011 Inactive Xopenex 1.25 mg/3 mL Neb Solution RxNorm: 402297 1 Unit(s) INH Q4 PRN 08/18/2011 12/15/2011 Inactive 1 box Xopenex 1.25 mg/3 mL Neb Solution RxNorm: 656195 1 Milliliter(s) INH Q4 PRN 08/18/2011 08/17/2011 Inactive 1 box Zithromax Z-Preston 250 mg Tab RxNorm: 499119 Tablet(s) PO UD 08/1008/11/2011 Inactive doxycycline hyclate 100 mg Tab RxNorm: 047189 1 Tablet(s) PO BID 08/11/2011 08/11/2011 Inactive prednisone 10 mg Tab RxNorm: 098984 1 Tablet(s) PO BID q a.m. and q NOON x 5 days 08/11/2011 08/10/2011 Inactive prednisone 10 mg Tab RxNorm: 290159 1 Tablet(s) PO BID q a.m. and q NOON x 5 days 08/11/2011 08/15/2011 Inactive Kenalog 40 mg/mL Susp for Injection RxNorm: 9186604 1 Milliliter(s) Inj 08/11/2011 08/11/2011 Inactive doxycycline hyclate 100 mg Tab RxNorm: 459081 1 Tablet(s) PO BID 08/11/2011 08/10/2011 Inactive nystatin 100,000 unit/mL Oral Susp RxNorm: 936090 6 Milliliter(s) PO QID 08/10/2011 08/16/2011 Inactive Jamie 60 mg Tab RxNorm: 498631 1 Tablet(s) PO daily 201101/23/2012 Inactive Jamie 60 mg Tab RxNorm: 460684 1 Tablet(s) PO daily 201107/27/2011 Inactive potassium chloride ER 10 mEq tablet,extended release RxNorm: 960518 1 Tablet(s) PO BID 07/27/2011 08/19/2012 Inactive Synthroid 75 mcg Tab RxNorm: 152040 Tablet(s) PO 07/06/2011 07/29/2012 Inactive one tab wednesday1/2 tab other days potassium chloride ER 10 mEq Tab RxNorm: 285560 1 Tablet(s) PO BID 07/02/2011 07/26/2011 Inactive Lasix 40 mg tablet RxNorm: 826473 1 Tablet(s) PO daily 201112/28/2011 Inactive Nexium 40 mg Capsule, delayed release RxNorm: 031370 1 Capsule(s) PO daily 06/25/2011 11/24/2011 Inactive Lexapro 10 mg Tab RxNorm: 023584 1 Tablet(s) PO daily 201107/14/2011 Inactive Carafate 100 mg/mL Oral Susp RxNorm: 925606 10 Milliliter(s) PO QID 06/25/2011 10/20/2011 Inactive dispense qs x 1 month nystatin 100,000 unit/mL Oral Susp RxNorm: 267501 3 Milliliter(s) PO QID swish, gargle, then swallow four times daily. 06/25/2011 07/14/2011 Inactive dispense qs x 10 days. Mucinex 1,200 mg 12 hr Tab RxNorm: 411188 1 Tablet(s) PO BID 07/21/2011 Inactive Lipitor 40 mg tablet RxNorm: 050115 1 Tablet(s) PO daily 201112/18/2011 Inactive lactobacillus acidophilus Cap RxNorm: 2 Capsule(s) PO BID 08/201107/14/2011 Inactive Mucinex 1,200 mg 12 hr Tab RxNorm: 686071 1 Tablet(s) PO BID 06/21/2011 Inactive lactobacillus acidophilus Cap RxNorm: 1 Capsule(s) PO BID 06/21/2011 Inactive Kenalog 40 mg/mL Susp for Injection RxNorm: 9478794 1 Milliliter(s) Inj 06/15/2011 06/15/2011 Inactive Flagyl 500 mg Tab RxNorm: 324575 1 Tablet(s) PO TID 201107/14/2011 Inactive doxycycline hyclate 100 mg Cap RxNorm: 322493 1 Capsule(s) PO BID 06/15/2011 07/14/2011 Inactive clarithromycin 250 mg Tab RxNorm: 614569 1 Tablet(s) PO BID 07/14/2011 Inactive Xanax 0.25 mg tablet RxNorm: 099919 1 Tablet(s) PO Q4-6H q 4-6 hrs prn 05/27/2011 07/16/2011 Inactive Lasix 40 mg Tab RxNorm : 590596 3 Tablet(s) PO as directed 2 q am and 1 q noon 05/27/2011 07/01/2011 Inactive potassium chloride ER 10 mEq Tab RxNorm: 030809 1 Tablet(s) PO BID 05/27/2011 05/26/2011 Inactive KCL 10 meq RxNorm: 1 PO BID 05/27/201112/2011 Inactive potassium chloride ER 10 mEq Tab RxNorm: 664375 1 Tablet(s) PO BID 05/27/2011 06/25/2011 Inactive Pradaxa 75 mg Cap RxNorm: 7577188 2 Capsule(s) PO daily 09/29/2011 Inactive Biaxin 500 mg Tab RxNorm: 001733 1 Tablet(s) PO BID 201103/16/2011 Inactive Biaxin 500 mg Tab RxNorm: 073953 1 Tablet(s) PO BID 201107/14/2011 Inactive azithromycin 250 mg Tab RxNorm: 864024 1 Tablet(s) PO daily two by mouth daily x 3 days, then daily thereafter 02/06/2011 07/14/2011 Inactive two by mouth daily x 3 days, then daily thereafter until supply is exhausted azithromycin 250 mg Tab RxNorm: 770827 1 Tablet(s) PO daily two by mouth daily x 3 days, then daily thereafter 02/06/2011 02/05/2011 Inactive two by mouth daily x 3 days, then daily thereafter until supply is exhausted azithromycin 250 mg Tab RxNorm: 859914 1 Tablet(s) PO daily two by mouth daily x 3 days, then daily thereafter 02/06/2011 02/05/2011 Inactive two by mouth daily x 3 days, then daily thereafter until supply is exhausted Valturna 300 mg-320 mg Tab RxNorm: 2913400 Tablet(s) PO 201007/14/2011 Inactive TAKE 1 TABLET BY MOUTH EVERY DAY Kenalog 40 mg/mL Susp for Injection RxNorm: 8128052 2 Milliliter(s) Inj 11/20/2010 11/20/2010 Inactive Avelox 400 mg Tab RxNorm: 243808 1 Tablet(s) PO daily 201007/14/2011 Inactive Biaxin 500 mg Tab RxNorm: 953863 1 Tablet(s) PO BID 201011/15/2010 Inactive Pradaxa 150 mg Cap RxNorm: 9617298 1 Capsule(s) PO BID 201007/14/2011 Inactive Zyrtec oral RxNorm: 36231 oral No Start Date Active Pepcid oral RxNorm: 4278 oral No Start Date Active doxazosin 2 mg tablet RxNorm: 101810 1/2 Tablet(s) PO BID No Start Date 12/08/2015 Inactive Pyridium 200 mg tablet RxNorm: 9098750 1 Tablet(s) PO TID PRN No Start Date 10/28/2016 Inactive ondansetron 4 mg disintegrating tablet RxNorm: 690683 1 Tablet(s) PO Q4 PRN No Start Date 10/21/2017 Inactive Pradaxa 75 mg Cap RxNorm: 8695051 1 Capsule(s) PO daily No Start Date 05/04/2011 Inactive Singulair 10 mg tablet RxNorm: 921559 1 Tablet(s) PO daily No Start Date 07/14/2011 Inactive hydrocodone-acetaminophen 5 mg-325 mg tablet RxNorm: 955759 1 Tablet(s) PO Q6 PRN No Start Date 04/12/2013 Inactive Toprol XL 100 mg 24 hr Tab RxNorm: 466320 1 Tablet(s) PO BID No Start Date 07/14/2011 Inactive Zofran 4 mg tablet RxNorm: 496362 1 Tablet(s) PO Q6 PRN No Start Date 12/06/2012 Inactive Vitamin D2 50,000 unit capsule RxNorm: 401337 1 Capsule(s) PO QW No Start Date 05/15/2014 Inactive prednisone 10 mg tablet RxNorm: 922866 Tablet(s) PO UD No Start Date 06/15/2017 Inactive 6,5,4,3,2,1 Lipitor 40 mg Tab RxNorm: 501901 1 Tablet(s) PO daily No Start Date 06/21/2011 Inactive Trilipix 135 mg Cap RxNorm: 054585 Capsule(s) PO No Start Date 11/26/2010 Inactive Eliquis 5 mg tablet RxNorm: 8511551 1 Tablet(s) PO BID No Start Date 12/08/2015 Inactive KCL 10 meq RxNorm: 1 PO BID No Start Date 05/26/2011 Inactive Diovan 80 mg Tab RxNorm: 177190 1 Tablet(s) PO QHS No Start Date 07/14/2011 Inactive Lipitor 20 mg tablet RxNorm: 002073 1 Tablet(s) PO daily No Start Date 04/13/2013 Inactive Zithromax Z-Preston 250 mg tablet RxNorm: 795305 Tablet(s) PO No Start Date 01/30/2013 Inactive aspirin 81 mg Tab, Delayed Release RxNorm: 779275 1 Tablet(s) PO daily No Start Date 07/14/2011 Inactive prednisone 20 mg Tab RxNorm: 343783 Tablet(s) PO UD 3 tabs x 1 day, then 2 tabs daily x 2 days then 1 tab daily x 1 days, 1/2 daily x 1 day then 1/2 QOD x 2 doses then stop No Start Date 07/14/2011 Inactive Flonase 50 mcg/actuation Nasal [place] RxNorm: 8180734 2 [place] NASAL daily No Start Date 02/17/2016 Inactive hydrocodone 2.5 mg-guaifenesin 200 mg/5 mL syrup RxNorm: 649858 10 Unit Dose PO Q6 PRN No Start Date 04/25/2017 Inactive potassium chloride ER 10 mEq tablet,extended release RxNorm: 254656 1 Tablet(s) PO daily No Start Date 10/14/2016 Inactive Diovan 160 mg Tab RxNorm: 578473 1 Tablet(s) PO QHS No Start Date 12/20/2011 Inactive Lasix 40 mg Tab RxNorm : 930895 3 Tablet(s) PO as directed 2 q am and 1 q noon No Start Date 05/26/2011 Inactive metoprolol succinate ER 50 mg tablet,extended release 24 hr RxNorm: 781460 1 1 / 2 Tablet(s) PO BID No Start Date 2011 Inactive Carafate 1 gram Tab RxNorm: 182149 1 Tablet(s) PO TID No Start Date 07/14/2011 Inactive doxycycline hyclate 100 mg tablet RxNorm: 971638 1 Tablet(s) PO BID No Start Date 08/10/2016 Inactive Zithromax Z-Preston 250 mg Tab RxNorm: 125106 Oral No Start Date 08/10/2011 Inactive prednisone 20 mg Tab RxNorm: 189472 Tablet(s) PO No Start Date 04/06/2011 Inactive 3 tabs x 2 days, 2 tabs x 2 days, 1 tab x 2 days, 1/2 daily x 4 days then stop Bentyl 10 mg Cap RxNorm: 295737 1 Capsule(s) PO BID No Start Date 07/14/2011 Inactive Xarelto 15 mg tablet RxNorm: 8517187 1 Tablet(s) PO daily No Start Date 06/27/2017 Inactive Valturna 300 mg-320 mg Tab RxNorm: 2934037 1 Tablet(s) PO daily No Start Date 01/19/2011 Inactive Vitamin D 1,000 unit Tab RxNorm: 675622 1 Tablet(s) PO daily No Start Date 07/14/2011 Inactive Lexapro 10 mg Tab RxNorm: 072685 1 Tablet(s) PO daily No Start Date 04/06/2011 Inactive Synthroid 75 mcg Tab RxNorm: 016597 Tablet(s) PO No Start Date 07/05/2011 Inactive Protonix 40 mg Tab RxNorm: 903186 1 Tablet(s) PO daily No Start Date 07/14/2011 Inactive ranitidine 150 mg tablet RxNorm: 277748 1 Tablet(s) PO BID No Start Date 04/25/2017 Inactive prednisone 20 mg tablet RxNorm: 664452 Tablet(s) PO 3daily x 2days, then 2daily x2days, then 1daily x2days, then 1/2 daily x 2days then stop No Start Date 12/12/2013 Inactive Nexium 40 mg Cap RxNorm: 507352 1 Capsule(s) PO daily No Start Date 06/03/2011 Inactive Xanax 0.25 mg Tab RxNorm: 573692 1 Tablet(s) PO Q4-6H q 4-6 hrs prn No Start Date 04/06/2011 Inactive Synthroid 50 mcg Tab RxNorm: 470933 1 Tablet(s) PO daily No Start Date 07/14/2011 Inactive Pradaxa 150 mg capsule RxNorm: 9421303 1 Capsule(s) PO BID No Start Date 12/30/2011 Inactive metoprolol tartrate 25 mg tablet RxNorm: 779850 1 Tablet(s) PO TID No Start Date 12/08/2015 Inactive Singulair 5 mg Chewable Tab RxNorm: 547669 1 Tablet(s) PO every other day No Start Date 04/13/2013 Inactive Medication Administered Medication Codes Instructions Start Date Status ketorolac 60 mg/2 mL intramuscular solution RxNorm: 4725988 Milliliter 03/21/2018 No longer Active cyanocobalamin (vit B-12) 1,000 mcg/mL injection solution RxNorm: 440984 Milliliter 09/13/2015 No longer Active Kenalog 40 mg/mL suspension for injection RxNorm: 7400971 Milliliter 03/27/2015 No longer Active Kenalog 40 mg/mL suspension for injection RxNorm: 1012326 Milliliter 12/11/2014 No longer Active Kenalog 40 mg/mL suspension for injection RxNorm: 0708318 1Milliliter 04/14/2013 No longer Active Kenalog 40 mg/mL Susp for Injection RxNorm: 3826080 1Milliliter 04/11/2012 No longer Active Influenza Virus Vaccine 0.5 mL RxNorm: 11/11/2011 No longer Active Pneumovax 23 25 mcg/0.5 mL Injection RxNorm: 195942 Milliliter 11/11/2011 No longer Active Kenalog 40 mg/mL Susp for Injection RxNorm: 5706840 1Milliliter 08/11/2011 No longer Active Kenalog 40 mg/mL Susp for Injection RxNorm: 4264492 1Milliliter 06/15/2011 No longer Active Kenalog 40 mg/mL Susp for Injection RxNorm: 9328194 2Milliliter 11/20/2010 No longer Active Immunizations Vaccine [...] 11/01/2009 completed Assessments Condition Codes Effective Dates Pleurodynia ICD-10: R07.81 ICD-9: 786.50 03/21/2018 Laceration [...] ICD-10: Z12.31 ICD-9: V76.10 04/26/2017 Encounter for general adult medical examination with abnormal findings ICD-10: Z00.01 ICD-9: V70.0 04/26/2017 Encounter for immunization ICD-10: Z23 ICD-9: [...] medications ICD-9: V58.69 04/12/2013 ESSENTIAL HYPERTENSION SNOMED: 04122249 ICD-9: 401.9 04/12/2013 ATRIAL FIBRILLATION ICD-9: 427.31 [...] Knee pain, acute ICD-9: 719.46 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 Encounter for general adult medical examination with abnormal findings ICD-9: V70.0 01/21/2011 Actinic keratosis ICD-9: 702.0 2010 DEPRESSIVE DISORDER NEC ICD-9: 311 2010 Reason For Visit Reason For Visit Effective Dates Notes pain 03/21/2018 laceration of the arm 03/18/2018 [...] Observation Code Item Item Code Result Date Cbc With Differential Ord2 WBC 10.07 K/ul 04/26/2018 Cbc With Differential Ord2 RBC 4.62 M/ul 04/26/2018 Cbc With Differential Ord2 HGB 14.1 g/dl 04/26/2018 Cbc With Differential Ord2 HCT 43.5 % 04/26/2018 Cbc With Differential Ord2 Neut% 66.6 % 04/26/2018 Cbc With Differential Ord2 MCV 94.2 fl 04/26/2018 Cbc With Differential Ord2 Lymph% 24.5 % 04/26/2018 Cbc With Differential Ord2 [place]% 6.7 % 04/26/2018 Cbc With Differential Ord2 [...] 2.47 K/ul 04/26/2018 Cbc With Differential Ord2 [place] ABS# 0.7 K/ul 04/26/2018 Cbc With Differential [...] Ord30 C/HDL 3.5 Ratio 03/15/2017 Comp Metabolic Opy682 NA 140 mEq/L 03/15/2017 Comp Metabolic Kpi821 K 3.6 mEq/L 03/15/2017 Comp Metabolic Wju432 CL 104 mEq/L 03/15/2017 Comp Metabolic Olu985 CO2 27.0 mEq/L 03/15/2017 Comp Metabolic Tot108 ANION GAP 13 03/15/2017 Comp Metabolic Ojo491 GLUCOSE 93 mg/dL 03/15/2017 Comp Metabolic Erz850 Creat 0.9 mg/dL 03/15/2017 Comp Metabolic Umf108 eGFR 68 ml/min/1.73m2 03/15/2017 Comp Metabolic Hzz204 BUN 10 mg/dL 03/15/2017 Comp Metabolic Ntd361 B/C Ratio 11.4 Ratio 03/15/2017 Comp Metabolic Xmh558 CALCIUM 9.4 mg/dL 03/15/2017 Comp Metabolic Ucd251 ALK PHOS 84 U/L 03/15/2017 Comp Metabolic Ibq365 AST(SGOT) 14 U/L 03/15/2017 Comp Metabolic Uwq910 ALT(SGPT) 15 U/L 03/15/2017 Comp Metabolic Xop075 BILI T 0.5 mg/dL 03/15/2017 Comp Metabolic Tna266 ALBUMIN 3.6 g/dL 03/15/2017 Comp Metabolic Ctu723 TPRO 6.0 g/dL 03/15/2017 Comp Metabolic Jpw194 GLOB 2.4 g/dL 03/15/2017 Comp Metabolic Cpv990 A/G Ratio 1.5 Ratio 03/15/2017 Comp Metabolic Gnw979 Osmo 278 mOsmo 03/15/2017 Magnesium Ord90 Mag [...] 30.4 pg 03/15/2017 Cbc With Differential Ord2 [place]% 6.7 % 03/15/2017 Cbc With Differential Ord2 [...] 2.24 K/ul 03/15/2017 Cbc With Differential Ord2 [place] ABS# 0.5 K/ul 03/15/2017 Cbc With Differential [...] Ord15 CALCIUM 9.4 mg/dL 01/15/2017 Comp Metabolic Hdr773 NA 137 mEq/L 12/31/2016 Comp Metabolic Vay074 K 3.2 mEq/L 12/31/2016 Comp Metabolic Jac340 CL 95 mEq/L 12/31/2016 Comp Metabolic Qug939 CO2 30.0 mEq/L 12/31/2016 Comp Metabolic Ujv856 ANION GAP 15 12/31/2016 Comp Metabolic Jex043 GLUCOSE 111 mg/dL 12/31/2016 Comp Metabolic Fej070 Creat 1.3 mg/dL 12/31/2016 Comp Metabolic Vmc602 eGFR 45 ml/min/1.73m2 12/31/2016 Comp Metabolic Usu221 BUN 14 mg/dL 12/31/2016 Comp Metabolic Kjq519 B/C Ratio 11.1 Ratio 12/31/2016 Comp Metabolic Jhb534 CALCIUM 10.0 mg/dL 12/31/2016 Comp Metabolic Yrf882 ALK PHOS 61 U/L 12/31/2016 Comp Metabolic Agz575 AST(SGOT) 14 U/L 12/31/2016 Comp Metabolic Coh576 ALT(SGPT) 13 U/L 12/31/2016 Comp Metabolic Czh158 BILI T 0.9 mg/dL 12/31/2016 Comp Metabolic Ozh884 ALBUMIN 3.8 g/dL 12/31/2016 Comp Metabolic Kwp195 TPRO 6.7 g/dL 12/31/2016 Comp Metabolic Mtv410 GLOB 2.9 g/dL 12/31/2016 Comp Metabolic Myv058 A/G Ratio 1.3 Ratio 12/31/2016 Comp Metabolic Tij243 Osmo 275 mOsmo 12/31/2016 Cbc With Differential [...] 30.3 pg 12/31/2016 Cbc With Differential Ord2 [place]% 11.2 % 12/31/2016 Cbc With Differential Ord2 [...] 1.89 K/ul 12/31/2016 Cbc With Differential Ord2 [place] ABS# 0.7 K/ul 12/31/2016 Cbc With Differential Ord2 Eos ABS# 0.1 K/ul 12/31/2016 Cbc With Differential Ord2 Baso ABS# 0.1 K/ul 12/31/2016 Urine Culture Ucult Complete >100,000 col/ml aerobic growth sent to ref lab 10/30/2016 Tsh Ord6 hTSH II 2.88 uIU/mL 09/15/2016 Comp Metabolic Mmf023 NA 139 mEq/L 09/15/2016 Comp Metabolic Cmb579 K 4.0 mEq/L 09/15/2016 Comp Metabolic Zht351 CL 104 mEq/L 09/15/2016 Comp Metabolic Ken914 CO2 27.0 mEq/L 09/15/2016 Comp Metabolic Alu316 ANION GAP 12 09/15/2016 Comp Metabolic Xqq847 GLUCOSE 105 mg/dL 09/15/2016 Comp Metabolic Mno624 Creat 0.9 mg/dL 09/15/2016 Comp Metabolic Ovh592 eGFR 67 ml/min/1.73m2 09/15/2016 Comp Metabolic Joz594 BUN 14 mg/dL 09/15/2016 Comp Metabolic Xme460 B/C Ratio 15.7 Ratio 09/15/2016 Comp Metabolic Auv679 CALCIUM 9.0 mg/dL 09/15/2016 Comp Metabolic Kct281 ALK PHOS 85 U/L 09/15/2016 Comp Metabolic Vbw728 AST(SGOT) 12 U/L 09/15/2016 Comp Metabolic Opn799 ALT(SGPT) 11 U/L 09/15/2016 Comp Metabolic Ehx015 BILI T 0.5 mg/dL 09/15/2016 Comp Metabolic Byx891 ALBUMIN 3.4 g/dL 09/15/2016 Comp Metabolic Rgr767 TPRO 5.8 g/dL 09/15/2016 Comp Metabolic Ovx159 GLOB 2.4 g/dL 09/15/2016 Comp Metabolic Tbi874 A/G Ratio 1.4 Ratio 09/15/2016 Comp Metabolic Olu486 Osmo 278 mOsmo 09/15/2016 Vitamin D 25 Oh Wzo8595 VITAMIN D, 25 HYDROXY 25.95 ng/mL Lipid [...] 9.2 mg/dL 01/13/2016 Vitamin D 25 Oh Xvh1262 VITAMIN D, 25 HYDROXY 38.03 ng/mL Comp Metabolic Xgu567 NA 139 mEq/L 11/28/2015 Comp Metabolic Ewu991 K 4.0 mEq/L 11/28/2015 Comp Metabolic Zgz336 CL 105 mEq/L 11/28/2015 Comp Metabolic Vyh950 CO2 25.0 mEq/L 11/28/2015 Comp Metabolic Onp179 ANION GAP 13 11/28/2015 Comp Metabolic Ibh186 GLUCOSE 100 mg/dL 11/28/2015 Comp Metabolic Lah334 Creat 1.1 mg/dL 11/28/2015 Comp Metabolic Thx750 eGFR 55 ml/min/1.73m2 11/28/2015 Comp Metabolic Enk820 BUN 13 mg/dL 11/28/2015 Comp Metabolic Wbq545 B/C Ratio 12.3 Ratio 11/28/2015 Comp Metabolic Cas398 CALCIUM 9.2 mg/dL 11/28/2015 Comp Metabolic Djt052 ALK PHOS 85 U/L 11/28/2015 Comp Metabolic Swl948 AST(SGOT) 15 U/L 11/28/2015 Comp Metabolic Pmj836 ALT(SGPT) 15 U/L 11/28/2015 Comp Metabolic Jqk694 BILI T 0.5 mg/dL 11/28/2015 Comp Metabolic Kie480 ALBUMIN 3.7 g/dL 11/28/2015 Comp Metabolic Qjj086 TPRO 6.4 g/dL 11/28/2015 Comp Metabolic Dwf251 GLOB 2.7 g/dL 11/28/2015 Comp Metabolic Pvu127 A/G Ratio 1.4 Ratio 11/28/2015 Comp Metabolic Cwc455 Osmo 278 mOsmo 11/28/2015 Tsh Ord6 hTSH II 1.98 uIU/mL 11/28/2015 Free T4 Mgt703 FREE T4 1.04 ng/dL 11/28/2015 Cbc With [...] 30.9 pg 11/28/2015 Cbc With Differential Ord2 [place]% 6.7 % 11/28/2015 Cbc With Differential Ord2 [...] 2.19 K/ul 11/28/2015 Cbc With Differential Ord2 [place] ABS# 0.6 K/ul 11/28/2015 Cbc With Differential Ord2 Eos ABS# 0.1 K/ul 11/28/2015 Cbc With Differential Ord2 Baso ABS# 0.1 K/ul 11/28/2015 Comp Metabolic Bnd083 NA 135 mEq/L 10/15/2015 Comp Metabolic Bey989 K 3.5 mEq/L 10/15/2015 Comp Metabolic Ark094 CL 100 mEq/L 10/15/2015 Comp Metabolic Sgq343 CO2 29.0 mEq/L 10/15/2015 Comp Metabolic Mez181 ANION GAP 10 10/15/2015 Comp Metabolic Mrv749 GLUCOSE 88 mg/dL 10/15/2015 Comp Metabolic Ljq278 Creat 0.9 mg/dL 10/15/2015 Comp Metabolic Boh201 eGFR 67 ml/min/1.73m2 10/15/2015 Comp Metabolic Aqo345 BUN 16 mg/dL 10/15/2015 Comp Metabolic Sge165 B/C Ratio 17.8 Ratio 10/15/2015 Comp Metabolic Edg836 CALCIUM 9.4 mg/dL 10/15/2015 Comp Metabolic Pum984 ALK PHOS 96 U/L 10/15/2015 Comp Metabolic Lav718 AST(SGOT) 15 U/L 10/15/2015 Comp Metabolic Yvi907 ALT(SGPT) -125 U/L 10/15/2015 Comp Metabolic Yom743 BILI T 0.4 mg/dL 10/15/2015 Comp Metabolic Dja863 ALBUMIN 4.2 g/dL 10/15/2015 Comp Metabolic Ojv384 TPRO 7.2 g/dL 10/15/2015 Comp Metabolic Rah565 GLOB 3.1 g/dL 10/15/2015 Comp Metabolic Tkj053 A/G Ratio 1.4 Ratio 10/15/2015 Comp Metabolic Qgs564 Osmo 271 mOsmo 10/15/2015 Comp Metabolic Tts485 NA 135 mEq/L 10/15/2015 Comp Metabolic Azb476 K 3.5 mEq/L 10/15/2015 Comp Metabolic Qih050 CL 100 mEq/L 10/15/2015 Comp Metabolic Fec348 CO2 29.0 mEq/L 10/15/2015 Comp Metabolic Xyw678 ANION GAP 10 10/15/2015 Comp Metabolic Zoa513 GLUCOSE 88 mg/dL 10/15/2015 Comp Metabolic Fdg932 Creat 0.9 mg/dL 10/15/2015 Comp Metabolic Uev318 eGFR 67 ml/min/1.73m2 10/15/2015 Comp Metabolic Rgx608 BUN 16 mg/dL 10/15/2015 Comp Metabolic Dnw204 B/C Ratio 17.8 Ratio 10/15/2015 Comp Metabolic Pug863 CALCIUM 9.4 mg/dL 10/15/2015 Comp Metabolic Tnz611 ALK PHOS 96 U/L 10/15/2015 Comp Metabolic Ily558 AST(SGOT) 15 U/L 10/15/2015 Comp Metabolic Jnl403 ALT(SGPT) 14 U/L 10/15/2015 Comp Metabolic Qfe729 BILI T 0.4 mg/dL 10/15/2015 Comp Metabolic Oqm127 ALBUMIN 4.2 g/dL 10/15/2015 Comp Metabolic Muy084 TPRO 7.2 g/dL 10/15/2015 Comp Metabolic Yxk453 GLOB 3.1 g/dL 10/15/2015 Comp Metabolic Smr173 A/G Ratio 1.4 Ratio 10/15/2015 Comp Metabolic Jok225 Osmo 271 mOsmo 10/15/2015 Magnesium Ord90 Mag 2.2 mg/dL 10/15/2015 Magnesium Ord90 Mag 1.9 mg/dL 09/05/2015 Comp Metabolic Kdj018 NA 138 mEq/L 09/05/2015 Comp Metabolic Fuz976 K 3.7 mEq/L 09/05/2015 Comp Metabolic Nkx951 CL 99 mEq/L 09/05/2015 Comp Metabolic Bze325 CO2 30.0 mEq/L 09/05/2015 Comp Metabolic Odv169 ANION GAP 13 09/05/2015 Comp Metabolic Dnt912 GLUCOSE 97 mg/dL 09/05/2015 Comp Metabolic Jws571 Creat 1.1 mg/dL 09/05/2015 Comp Metabolic Huq612 eGFR 54 ml/min/1.73m2 09/05/2015 Comp Metabolic Ylx701 BUN 18 mg/dL 09/05/2015 Comp Metabolic Vbh907 B/C Ratio 16.7 Ratio 09/05/2015 Comp Metabolic Mcr041 CALCIUM 9.6 mg/dL 09/05/2015 Comp Metabolic Epf822 ALK PHOS 96 U/L 09/05/2015 Comp Metabolic Xhv401 AST(SGOT) 15 U/L 09/05/2015 Comp Metabolic Vrh154 ALT(SGPT) 14 U/L 09/05/2015 Comp Metabolic Clw354 BILI T 0.5 mg/dL 09/05/2015 Comp Metabolic Vjv523 ALBUMIN 4.1 g/dL 09/05/2015 Comp Metabolic Zsx833 TPRO 7.0 g/dL 09/05/2015 Comp Metabolic Atk338 GLOB 3.0 g/dL 09/05/2015 Comp Metabolic Ypj628 A/G Ratio 1.4 Ratio 09/05/2015 Comp Metabolic Yzf296 Osmo 277 mOsmo 09/05/2015 Vitamin D 25 Oh Pqr2159 VITAMIN D, 25 HYDROXY 22.39 ng/mL Magnesium Ord90 Mag 2.0 mg/dL 06/11/2015 Tsh Ord6 hTSH II 3.52 uIU/mL 06/11/2015 Comp Metabolic Rqk766 NA 135 mEq/L 06/11/2015 Comp Metabolic Aaa745 K 4.3 mEq/L 06/11/2015 Comp Metabolic Pdt241 CL 103 mEq/L 06/11/2015 Comp Metabolic Urx646 CO2 25.0 mEq/L 06/11/2015 Comp Metabolic Bcu971 ANION GAP 11 06/11/2015 Comp Metabolic Xnh015 GLUCOSE 75 mg/dL 06/11/2015 Comp Metabolic Htv790 Creat 0.9 mg/dL 06/11/2015 Comp Metabolic Flt082 eGFR 69 ml/min/1.73m2 06/11/2015 Comp Metabolic Kdz124 BUN 22 mg/dL 06/11/2015 Comp Metabolic Gtx307 B/C Ratio 25.3 Ratio 06/11/2015 Comp Metabolic Dki025 CALCIUM 9.2 mg/dL 06/11/2015 Comp Metabolic Xhk173 ALK PHOS 88 U/L 06/11/2015 Comp Metabolic Vgy200 AST(SGOT) 13 U/L 06/11/2015 Comp Metabolic Iwu993 ALT(SGPT) 15 U/L 06/11/2015 Comp Metabolic Xgg933 BILI T 0.4 mg/dL 06/11/2015 Comp Metabolic Egh058 ALBUMIN 3.7 g/dL 06/11/2015 Comp Metabolic Isa436 TPRO 6.6 g/dL 06/11/2015 Comp Metabolic Gyj421 GLOB 2.9 g/dL 06/11/2015 Comp Metabolic Pjh755 A/G Ratio 1.3 Ratio 06/11/2015 Comp Metabolic Ool814 Osmo 272 mOsmo 06/11/2015 Free T4 Fzn851 FREE T4 0.95 ng/dL 06/11/2015 Cbc With [...] 31.3 pg 06/11/2015 Cbc With Differential Ord2 [place]% 7.4 % 06/11/2015 Cbc With Differential Ord2 [...] 2.57 K/ul 06/11/2015 Cbc With Differential Ord2 [place] ABS# 0.9 K/ul 06/11/2015 Cbc With Differential [...] 13.8 % 11/16/2014 Vitamin D 25 Oh Ykt5427 VITAMIN D, 25 HYDROXY 22.85 ng/mL Lipid Ord30 CHOL 206 mg/dL 11/16/2014 Lipid Ord30 HDL 49.0 mg/dl 11/16/2014 Lipid Ord30 TRIG 104 mg/dL 11/16/2014 Lipid Ord30 LDL 136 mg/dL 11/16/2014 Lipid Ord30 C/HDL 4.2 Ratio 11/16/2014 Tsh Ord6 hTSH II 2.05 uIU/mL 11/16/2014 Comp Metabolic Xkg215 NA 138 mEq/L 11/16/2014 Comp Metabolic Fgo902 K 4.0 mEq/L 11/16/2014 Comp Metabolic Jdd472 CL 104 mEq/L 11/16/2014 Comp Metabolic Sbe566 CO2 27.0 mEq/L 11/16/2014 Comp Metabolic Any877 ANION GAP 11 11/16/2014 Comp Metabolic Lqy757 GLUCOSE 94 mg/dL 11/16/2014 Comp Metabolic Jbg046 Creat 0.9 mg/dL 11/16/2014 Comp Metabolic Mal700 eGFR 64 ml/min/1.73m2 11/16/2014 Comp Metabolic Fqz577 BUN 12 mg/dL 11/16/2014 Comp Metabolic Wyy381 B/C Ratio 12.9 Ratio 11/16/2014 Comp Metabolic Gua784 CALCIUM 9.4 mg/dL 11/16/2014 Comp Metabolic Whb918 ALK PHOS 88 U/L 11/16/2014 Comp Metabolic Wwp666 AST(SGOT) 14 U/L 11/16/2014 Comp Metabolic Tlr585 ALT(SGPT) 12 U/L 11/16/2014 Comp Metabolic Tfx656 BILI T 0.6 mg/dL 11/16/2014 Comp Metabolic Mdw365 ALBUMIN 3.7 g/dL 11/16/2014 Comp Metabolic Vzn127 TPRO 6.3 g/dL 11/16/2014 Comp Metabolic Hte872 GLOB 2.6 g/dL 11/16/2014 Comp Metabolic Weh486 A/G Ratio 1.4 Ratio 11/16/2014 Comp Metabolic Yvy924 Osmo 275 mOsmo 11/16/2014 %Hba1C Ssf839 % HbA1c 33096-7 5.7 % 11/16/2014 %Hba1C Ydr465 Gluc Ave 117 mg/dL 11/16/2014 GFR CALC 1527234 GFR AA >60 ML/MIN 04/12/2013 GFR CALC 9061359 GFR NON-AA >60 ML/MIN 04/12/2013 TSH 7168703 TSH 2.194 uIU/ML 04/12/2013 VIT B 12 4415428 VIT B 12 415 PG/ML 04/12/2013 CBC 0588723 WBC 8.8 10e9/L 04/12/2013 CBC 4550943 RBC 4.59 10e12/L 04/12/2013 CBC 3175265 HGB 14.3 g/dL 04/12/2013 CBC 5973335 HCT DET 42.4 % 04/12/2013 CBC 2337027 MCV 92.4 fL 04/12/2013 CBC 2025427 MCH 31.2 pg 04/12/2013 CBC 8249128 MCHC 33.7 g/dL 04/12/2013 CBC 1319257 PLT 213 10e9/L 04/12/2013 CBC 3713470 MPV 12.8 fL 04/12/2013 CBC 5067884 LULU % 61.8 % 04/12/2013 CBC 2564024 LY % 29.2 % 04/12/2013 CBC 6029241 MON % 7.2 % 04/12/2013 CBC 5644510 EOS % 1.3 % 04/12/2013 CBC 3130307 BASO % 0.5 % 04/12/2013 CBC 9438793 RDW 12.6 % 04/12/2013 CBC 9503705 ABS LULU 5.44 10e9/L 04/12/2013 CBC 3514270 ABS LYMPH 2.57 10e9/L 04/12/2013 CBC 4495376 ABS MONO 0.63 10e9/L 04/12/2013 CBC 3852449 ABS EOS 0.11 10e9/L 04/12/2013 CBC 2159138 ABS BASO 0.04 10e9/L 04/12/2013 CBC 9731214 RDW-SD 41.3 fL 04/12/2013 FREE T4 3723019 FREE T4 1.09 NG/DL 04/12/2013 A1C HPLC 7786166 A1C HPLC 32795-7 5.4 % 04/12/2013 CHEM 14 8587900 AST 12 U/L 04/12/2013 CHEM 14 3461416 ALT 11 IU/L 04/12/2013 CHEM 14 3438953 BUN 14 MG/DL 04/12/2013 CHEM 14 8435287 ALBUMIN 4.1 GM/DL 04/12/2013 CHEM 14 7974001 CHLORIDE 105 MMOL/L 04/12/2013 CHEM 14 0868947 BILI TOT 0.6 MG/DL 04/12/2013 CHEM 14 2147667 ALK PHOS 81 U/L 04/12/2013 CHEM 14 7069382 SODIUM 138 MMOL/L 04/12/2013 CHEM 14 0121137 CREATININE 0.86 MG/DL 04/12/2013 CHEM 14 2107474 CALCIUM 9.8 MG/DL 04/12/2013 CHEM 14 3389657 POTASSIUM 4.1 MMOL/L 04/12/2013 CHEM 14 5432147 PROT TOT 6.6 GM/DL 04/12/2013 CHEM 14 3896835 GLUCOSE 112 MG/DL 04/12/2013 CHEM 14 9446982 BICARB 27 MMOL/L 04/12/2013 CHEM 14 1092393 ANION GAP 6 MEQ/L 04/12/2013 LIPID GRP HDL TEST 55 MG/DL 04/12/2013 LIPID GRP TRIG 107 MG/DL 04/12/2013 LIPID GRP TEST LDL 193 MG/DL 04/12/2013 LIPID GRP CHOL 269 MG/DL 04/12/2013 LIPID GRP RCHOL/HDL 4.89 RATIO 04/12/2013 NICOT QN S 1215191 NICOTIN S < 2.0 NG/ML 03/07/2012 NICOT QN S 8797688 XCOTININ S < 2.0 NG/ML 03/07/2012 CBC 5789187 WBC 8.1 10e9/L 03/02/2012 CBC 5300790 RBC 4.44 10e12/L 03/02/2012 CBC 6381408 HGB 13.8 g/dL 03/02/2012 CBC 8131408 HCT DET 41.3 % 03/02/2012 CBC 5341257 MCV 93.0 fL 03/02/2012 CBC 8856839 MCH 31.1 pg 03/02/2012 CBC 2948803 MCHC 33.4 g/dL 03/02/2012 CBC 6201624 PLT 188 10e9/L 03/02/2012 CBC 7621495 MPV 14.3 fL 03/02/2012 CBC 8528993 LULU % 61.5 % 03/02/2012 CBC 1773765 LY % 28.8 % 03/02/2012 CBC 6795316 MON % 8.0 % 03/02/2012 CBC 5732074 EOS % 1.1 % 03/02/2012 CBC 1113108 BASO % 0.6 % 03/02/2012 CBC 9469844 RDW 14.0 % 03/02/2012 CBC 9101242 ABS LULU 4.98 10e9/L 03/02/2012 CBC 6736174 ABS LYMPH 2.33 10e9/L 03/02/2012 CBC 2245418 ABS MONO 0.65 10e9/L 03/02/2012 CBC 2712804 ABS EOS 0.09 10e9/L 03/02/2012 CBC 2102265 ABS BASO 0.05 10e9/L 03/02/2012 CBC 0912542 RDW-SD 46.3 fL 03/02/2012 LIPID GRP HDL TEST 37 MG/DL 03/02/2012 LIPID GRP TRIG 136 MG/DL 03/02/2012 LIPID GRP TEST LDL 106 MG/DL 03/02/2012 LIPID GRP CHOL 170 MG/DL 03/02/2012 LIPID GRP RCHOL/HDL 4.59 RATIO 03/02/2012 GFR CALC 7027690 GFR AA >60 ML/MIN 03/02/2012 GFR CALC 6593979 GFR NON-AA >60 ML/MIN 03/02/2012 FREE T4 4275918 FREE T4 1.09 NG/DL 03/02/2012 A1C HPLC 4102714 A1C HPLC 85956-2 5.4 % 03/02/2012 CHEM 14 8523346 AST 17 U/L 03/02/2012 CHEM 14 7571940 ALT 22 IU/L 03/02/2012 CHEM 14 7856440 BUN 15 MG/DL 03/02/2012 CHEM 14 1511748 ALBUMIN 4.0 GM/DL 03/02/2012 CHEM 14 1111533 CHLORIDE 107 MMOL/L 03/02/2012 CHEM 14 5311965 BILI TOT 0.4 MG/DL 03/02/2012 CHEM 14 0284925 ALK PHOS 83 U/L 03/02/2012 CHEM 14 1632968 SODIUM 141 MMOL/L 03/02/2012 CHEM 14 2142389 CREATININE 0.86 MG/DL 03/02/2012 CHEM 14 2412058 CALCIUM 9.5 MG/DL 03/02/2012 CHEM 14 8813556 POTASSIUM 4.0 MMOL/L 03/02/2012 CHEM 14 3656526 PROT TOT 6.6 GM/DL 03/02/2012 CHEM 14 2524925 GLUCOSE 102 MG/DL 03/02/2012 CHEM 14 7326306 BICARB 28 MMOL/L 03/02/2012 CHEM 14 5604852 ANION GAP 6 MEQ/L 03/02/2012 TSH 0726830 TSH 2.320 uIU/ML 03/02/2012 GFR CALC 1407386 GFR AA >60 ML/MIN 07/03/2011 GFR CALC 3421005 GFR NON-AA 54.0L ML/MIN 07/03/2011 CHEM 14 3366475 AST 15 U/L 07/03/2011 CHEM 14 1763367 ALT 30 IU/L 07/03/2011 CHEM 14 8981710 BUN 19 MG/DL 07/03/2011 CHEM 14 8910123 ALBUMIN 4.2 GM/DL 07/03/2011 CHEM 14 6080945 CHLORIDE 100 MMOL/L 07/03/2011 CHEM 14 8588538 BILI TOT 0.8 MG/DL 07/03/2011 CHEM 14 9350123 ALK PHOS 74 U/L 07/03/2011 CHEM 14 6790259 SODIUM 137 MMOL/L 07/03/2011 CHEM 14 3537022 CREATININE 1.03 MG/DL 07/03/2011 CHEM 14 4210153 CALCIUM 9.6 MG/DL 07/03/2011 CHEM 14 7064559 POTASSIUM 4.4 MMOL/L 07/03/2011 CHEM 14 1483719 PROT TOT 6.7 GM/DL 07/03/2011 CHEM 14 4260985 GLUCOSE 106 MG/DL 07/03/2011 CHEM 14 8402103 BICARB 28 MMOL/L 07/03/2011 CHEM 14 6870883 ANION GAP 9 MEQ/L 07/03/2011 URINALYSIS NONAUTO W/O SCOPE 20232 Specific [place] 1.010 DateTime(Free Text in Aprima) URINALYSIS NONAUTO W/O SCOPE 75267 PH 5 DateTime(Free Text in Apr[employer]) URINALYSIS NONAUTO W/O SCOPE 85588 GLUCOSE neg DateTime( Free Text in [employer]) URINALYSIS NONAUTO W/O SCOPE 83696 Protein neg DateTime( Free Text in [employer]) URINALYSIS NONAUTO W/O SCOPE 17387 Blood 1+ DateTime(Free Text in [employer]) URINALYSIS NONAUTO W/O SCOPE 58809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 verbalized understanding. 11/20/2010 Appointment: Roberta Isaacs WPtel: [address] [place] [address] Other 11/20/2010 Patient Education: Patient Medication Summary Completed 11/20/2010 Visit Plan: Sinusitis - Pt has acute infection - pain in face, maxillary region, Pt informed to use decongestant, RX given to patient, sinus rinses also recommended. Call if symptoms do not show improvement. Samples of nasonex and jamie provided as well. 11/06/2010 Appointment: Roberta Isaacs WPtel: [address] [place] [address] Other 11/06/2010 Patient Education: Patient Medication Summary [...] as first thing in the morning. . Chronic sinusitis- recommended pt to start [...] more activy after improving from her illness. . Annual Medicare Exam - today we [...] provided and instructed on one tab daily. 50,000 units weekly x 12 weeks vitamin [...] of nasonex and jamie provided as well. continue daily dressing change . Skin tear-dorsum [...] office or get her labs [place] [facility] [place]. She reports that her [...] twice daily as had been initiall instructed. REPEAT MAMMOGRAM RECOMMEND SHINGLES VACCINE VITAMIN D [...] being re-exposed to the environment of the senior care. . Trigger Points - Injected trigger points [...] for fasting labs. Biaxin prescription sent to [facility]-it is twice daily x 10 days. [...] by Dr. Cueto. 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 Sinusitis - Pt has acute infection - pain in face, maxillary region, Pt informed to use decongestant, RX given to patient, sinus rinses also recommended. Call if symptoms do not show improvement. Kenalog injection today in the office. . [id number] lasix 40mg daily x 3 days with potassium 20mEq BID x 3 days, then resume daily PRN schedule. If symptoms do not improve, we will obtain a chest xray. Recommend screening mammogram . PT GIVEN ROUTINE ALLERGY SHOTS FOR DESENSITIZATION . Kenalog injection . 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 Vernon for further recommendations. Hematuria-culture urine
--- OUTSIDE RECORDS SUMMARY | 2018-06-03 07:50 | XMS REPORT | CCD ---
Author Author [facility] Address [address] [place] [address] Phone Care Team Providers Care Smt Machine Operator Name Role Phone PP Unavailable CCM Unavailable Summary Purpose Interface Exchange Insurance Providers Payer name Policy type / Coverage type Covered democrat ID Effective Begin Date Effective End Date WPS Medicare Part B Medicare Part B [id number] 2017 Unknown [employer] Medicare Part B [id number] Unknown Family history Father Diagnosis Age At Onset No Family Disease Entered N/A Runs in the family Diagnosis Age At Onset Diabetes Unknown Mother Diagnosis Age At Onset No Family Disease Entered N/A Social History Social History Element Codes Description Effective Dates Employment Unknown 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.3 03/17/2011 Active Obesity ICD-9: 278.00 [...] Instructions doxycycline hyclate 100 mg tablet RxNorm: 8165438 1 Tablet(s) PO BID 04/01/2018 04/10/2018 Active doxycycline hyclate 100 mg tablet RxNorm: 9027713 1 Tablet(s) PO BID 04/01/2018 03/31/2018 Inactive ketorolac 60 mg/2 mL intramuscular solution RxNorm: 2576046 Milliliter(s) IM 03/21/2018 03/21/2018 Inactive Voltaren 1 % topical gel RxNorm: 470424 4 Gram(s) TOP QID 03/1104/09/2018 Active Voltaren 1 % topical gel RxNorm: 117795 4 Gram(s) TOP QID 03/1103/10/2018 Inactive Xanax 0.25 mg tablet RxNorm: 555113 Tablet(s) PO TAKE ONE TABLET BY MOUTH EVERY 4 TO 6 HOURS NEEDED 03/09/20182018 Active potassium chloride ER 10 mEq tablet,extended release RxNorm: 525877 TAKE 2 CAPSULES BY MOUTH TWICE DAILY 02/28/2018 No Stop Date Active Levaquin 500 mg tablet RxNorm: 049447 1 Tablet(s) PO daily 12/201701/31/2018 Inactive Macrobid 100 mg capsule RxNorm: 345592 1 Capsule(s) PO BID 01/06/2018 Inactive Macrobid 100 mg capsule RxNorm: 332581 1 Capsule(s) PO BID 12/30/2017 Inactive ondansetron 4 mg disintegrating tablet RxNorm: 428300 1 Tablet(s) PO Q4 PRN 10/22/2017 No Stop Date Active Xanax 0.25 mg tablet RxNorm: 465926 Tablet(s) PO TAKE ONE TABLET BY MOUTH EVERY 4 TO 6 HOURS NEEDED 07/29/20172017 Inactive Levaquin 500 mg tablet RxNorm: 051518 1 Tablet(s) PO daily 07/14/2017 Inactive Levaquin 500 mg tablet RxNorm: 577854 1 Tablet(s) PO daily 07/21/2017 Inactive Xarelto 20 mg tablet RxNorm: 6364608 1 Tablet(s) PO daily 06/2812/24/2017 Inactive Xarelto 20 mg tablet RxNorm: 5363609 1 Tablet(s) PO daily 06/2806/27/2017 Inactive potassium chloride ER 10 mEq tablet,extended release RxNorm: 116009 2 Capsule(s) PO BID 06/28/2017 12/24/2017 Inactive potassium chloride ER 10 mEq tablet,extended release RxNorm: 343763 2 Capsule(s) PO BID 06/28/2017 06/27/2017 Inactive prednisone 10 mg tablet RxNorm: 434023 Tablet(s) PO UD 201703/20/2018 Inactive 6,5,4,3,2,1 Vitamin D2 50,000 unit capsule RxNorm: 377660 1 Capsule(s) PO QW 04/26/2017 07/24/2017 Inactive Lexapro 10 mg tablet RxNorm: 877366 1 Tablet(s) PO QHS 201601/11/2017 Inactive Lexapro 10 mg tablet RxNorm: 081948 1 Tablet(s) PO QHS 201604/25/2017 Inactive famotidine 20 mg tablet RxNorm: 817453 1 Tablet(s) PO BID 01/0601/05/2017 Inactive famotidine 20 mg tablet RxNorm: 722417 1 Tablet(s) PO BID 01/0604/25/2017 Inactive doxazosin 2 mg tablet RxNorm: 925610 TAKE ONE-HALF TABLET BY MOUTH TWICE DAILY 12/17/2016 04/25/2017 Inactive Xanax 0.25 mg tablet RxNorm: 948307 Tablet(s) PO TAKE ONE TABLET BY MOUTH EVERY 4 TO 6 HOURS NEEDED 11/12/20162016 Inactive Xanax 0.25 mg tablet RxNorm: 489330 Tablet(s) PO TAKE ONE TABLET BY MOUTH EVERY 4 TO 6 HOURS NEEDED 11/12/20162016 Inactive Levaquin 500 mg tablet RxNorm: 863811 1 Tablet(s) PO daily 10/28/2016 Inactive Levaquin 500 mg tablet RxNorm: 162552 1 Tablet(s) PO daily 11/04/2016 Inactive Pyridium 200 mg tablet RxNorm: 4970093 1 Tablet(s) PO TID PRN 10/29/2016 04/25/2017 Inactive potassium chloride ER 10 mEq tablet,extended release RxNorm: 004433 2 Capsule(s) PO BID 10/20/2016 02/16/2017 Inactive potassium chloride ER 10 mEq tablet,extended release RxNorm: 641032 2 Capsule(s) PO BID 10/16/2016 10/19/2016 Inactive potassium chloride ER 10 mEq tablet,extended release RxNorm: 043765 1 Capsule(s) PO daily 10/15/2016 10/15/2016 Inactive potassium chloride 40 mEq/15 mL oral liquid RxNorm: 993744 7.5 Milliliter(s) PO BID 10/05/2016 10/11/2016 Inactive potassium chloride 40 mEq/15 mL oral liquid RxNorm: 892306 7.5 Milliliter(s) PO BID 10/05/2016 10/04/2016 Inactive potassium chloride 40 mEq/15 mL oral liquid RxNorm: 071526 7.5 Milliliter(s) PO BID 10/05/2016 10/04/2016 Inactive doxycycline hyclate 100 mg tablet RxNorm: 603915 1 Tablet(s) PO BID 09/30/2016 10/09/2016 Inactive Vitamin D2 50,000 unit capsule RxNorm: 730441 1 Capsule(s) PO QW 09/15/2016 09/14/2016 Inactive Vitamin D2 50,000 unit capsule RxNorm: 583750 1 Capsule(s) PO QW 09/15/2016 12/13/2016 Inactive doxycycline hyclate 100 mg tablet RxNorm: 042281 1 Tablet(s) PO BID 08/11/2016 08/24/2016 Inactive doxycycline hyclate 100 mg tablet RxNorm: 908279 1 Tablet(s) PO BID 07/24/2016 07/28/2016 Inactive mupirocin 2 % topical ointment RxNorm: 608948 1 Application TOP BID 07/24/2016 07/23/2016 Inactive mupirocin 2 % topical ointment RxNorm: 108273 1 Application TOP BID 07/24/2016 07/30/2016 Inactive doxycycline hyclate 100 mg tablet RxNorm: 735302 1 Tablet(s) PO BID 07/24/2016 07/23/2016 Inactive potassium chloride ER 10 mEq tablet,extended release RxNorm: 179910 2 Tablet(s) PO BID 07/20/2016 10/04/2016 Inactive Lasix 20 mg tablet RxNorm: 767340 1 Tablet(s) PO PRN 2016 No Stop Date Active PRN for swelling Xanax 0.25 mg tablet RxNorm: 424630 Tablet(s) PO TAKE ONE TABLET BY MOUTH EVERY 4 TO 6 HOURS NEEDED 06/19/20162016 Inactive prednisone 20 mg tablet RxNorm: 274445 1 Tablet(s) PO BID 06/0306/07/2016 Inactive potassium chloride ER 10 mEq tablet,extended release RxNorm: 493954 2 Tablet(s) PO BID 05/06/2016 05/05/2016 Inactive potassium chloride ER 10 mEq tablet,extended release RxNorm: 468769 2 Tablet(s) PO BID 05/06/2016 06/04/2016 Inactive Levaquin 500 mg tablet RxNorm: 792939 1 Tablet(s) PO daily 03/30/2016 Inactive Levaquin 500 mg tablet RxNorm: 761927 1 Tablet(s) PO daily 04/06/2016 Inactive prednisone 20 mg tablet RxNorm: 984504 1 Tablet(s) PO BID 02/2402/29/2016 Inactive prednisone 20 mg tablet RxNorm: 495632 1 Tablet(s) PO BID 02/2402/24/2016 Inactive Flonase 50 mcg/actuation nasal spray,suspension RxNorm: 5678011 2 [place] NASAL daily 02/18/2016 02/27/2016 Inactive doxycycline hyclate 100 mg tablet RxNorm: 155486 1 Tablet(s) PO BID 02/18/2016 02/27/2016 Inactive doxycycline hyclate 100 mg tablet RxNorm: 276242 1 Tablet(s) PO BID 02/18/2016 02/17/2016 Inactive cyclobenzaprine 5 mg tablet RxNorm: 045456 1-2 Tablet(s) PO TID as needed 02/12/2016 02/21/2016 Inactive cyclobenzaprine 5 mg tablet RxNorm: 362298 1-2 Tablet(s) PO TID as needed 02/12/2016 02/11/2016 Inactive Xanax 0.25 mg tablet RxNorm: 940199 Tablet(s) PO TAKE ONE TABLET BY MOUTH EVERY 4 TO 6 HOURS NEEDED 01/20/20162016 Inactive (Appended: Controlled substance eRx refill - RxReferenceNumber: [id number]) metoprolol tartrate 25 mg tablet RxNorm: 298902 1/2 Tablet(s) PO BID 12/13/2015 04/10/2016 Inactive doxazosin 2 mg tablet RxNorm: 442118 1 Tablet(s) PO QHS 201512/16/2016 Inactive metoprolol tartrate 25 mg tablet RxNorm: 050943 1/2 Tablet(s) PO BID 12/09/2015 12/12/2015 Inactive Vitamin D2 50,000 unit capsule RxNorm: 114837 1 Capsule(s) PO QW 12/09/2015 02/06/2016 Inactive Lasix 20 mg tablet RxNorm: 746478 1 Tablet(s) PO PRN 201507/05/2016 Inactive PRN for swelling potassium chloride ER 20 mEq tablet,extended release RxNorm: 413257 1 Tablet(s) PO daily as needed When taking lasix 10/03/2015 04/26/2016 Inactive cyanocobalamin (vit B-12) 1,000 mcg/mL injection solution RxNorm: 638242 Milliliter(s) Inj 09/13/2015 09/13/2015 Inactive doxycycline hyclate 100 mg tablet RxNorm: 435909 1 Tablet(s) PO BID 09/12/2015 09/18/2015 Inactive potassium chloride ER 10 mEq tablet,extended release RxNorm: 546468 1 Tablet(s) PO daily as needed When taking lasix 09/04/2015 10/02/2015 Inactive Lasix 20 mg tablet RxNorm: 612506 1 Tablet(s) PO PRN 201510/02/2015 Inactive PRN for swelling doxycycline hyclate 100 mg tablet RxNorm: 144058 1 Tablet(s) PO BID 08/26/2015 08/25/2015 Inactive doxycycline hyclate 100 mg tablet RxNorm: 631423 1 Tablet(s) PO BID 08/26/2015 09/01/2015 Inactive mupirocin 2 % topical ointment RxNorm: 782821 1 Application TOP BID 08/02/2015 08/01/2015 Inactive mupirocin 2 % topical ointment RxNorm: 198290 1 Application TOP BID 08/02/2015 08/08/2015 Inactive metoprolol tartrate 50 mg tablet RxNorm: 437782 2 tabs in morning and 1 tablet at night dose PO as directed 06/13/201510/23 Inactive 2 tabs in the morning, and 1 in the evening Benicar 40 mg tablet RxNorm: 495926 1 Tablet(s) PO daily 201510/21/2015 Inactive Benicar 40 mg tablet RxNorm: 212914 1 Tablet(s) PO daily 201506/12/2015 Inactive Vitamin D2 50,000 unit capsule RxNorm: 702781 1 Capsule(s) PO QW 06/11/2015 12/07/2015 Inactive Xanax 0.25 mg tablet RxNorm: 683097 Tablet(s) PO TAKE ONE TABLET BY MOUTH EVERY 4 TO 6 HOURS NEEDED 06/06/20152015 Inactive (Appended: Controlled substance eRx refill - RxReferenceNumber: [id number]) Levaquin 500 mg tablet RxNorm: 367993 1 Tablet(s) PO daily 11/201510/28/2015 Inactive Kenalog 40 mg/mL suspension for injection RxNorm: 7961238 Milliliter(s) Inj 03/27/2015 03/27/2015 Inactive Kenalog 40 mg/mL suspension for injection RxNorm: 6555487 Milliliter(s) Inj 12/11/2014 12/11/2014 Inactive Vitamin D2 50,000 unit capsule RxNorm: 976467 1 Capsule(s) PO QW 12/05/2014 06/02/2015 Inactive [SAVINGS FOR NON-COVERED DRUGS -- BIN:[id number], PCN: ASPROD1, Group: XXXXX, ID# [id number], Questions: . THIS IS NOT INSURANCE.] Pradaxa 150 mg capsule RxNorm: 7275261 Capsule(s) PO BID 201409/08/2015 Inactive TAKE 1 CAPSULE BY MOUTH TWICE DAILY Vitamin D2 50,000 unit capsule RxNorm: 613594 1 Capsule(s) PO QW 12/04/2014 12/04/2014 Inactive [SAVINGS FOR NON-COVERED DRUGS -- BIN:019105, PCN: ASPROD1, Group: XXXXX, ID# [id number], Questions: . THIS IS NOT INSURANCE.] Lasix 20 mg tablet RxNorm: 252857 1 Tablet(s) PO PRN 201411/25/2014 Inactive PRN for swelling Levaquin 500 mg tablet RxNorm: 776270 1 Tablet(s) PO daily 01/201511/25/2014 Inactive Levaquin 500 mg tablet RxNorm: 392800 1 Tablet(s) PO daily 01/201512/02/2014 Inactive Lasix 20 mg tablet RxNorm: 150813 1 Tablet(s) PO PRN 201409/03/2015 Inactive PRN for swelling nitrofurantoin 100 mg capsule RxNorm: 359109 1 Capsule(s) PO BID 11/12/2014 11/17/2014 Inactive Macrobid 100 mg capsule RxNorm: 677252 1 Capsule(s) PO BID 11/18/2014 Inactive Macrobid 100 mg capsule RxNorm: 951835 1 Capsule(s) PO BID 11/11/2014 Inactive Levaquin 500 mg tablet RxNorm: 895415 1 Tablet(s) PO daily 11/11/2014 Inactive metoprolol tartrate 50 mg tablet RxNorm: 546870 2 tabs in morning and 1 tablet at night dose PO as directed 10/25/201405/21 Inactive 2 tabs in the morning, and 1 in the evening Xanax 0.25 mg tablet RxNorm: 489273 Tablet(s) PO TAKE ONE TABLET BY MOUTH EVERY 4 TO 6 HOURS NEEDED 08/30/20142014 Inactive (Appended: Controlled substance eRx refill - RxReferenceNumber: [id number]) Levaquin 500 mg tablet RxNorm: 118754 1 Tablet(s) PO daily 07/31/2014 Inactive Levaquin 500 mg tablet RxNorm: 038057 1 Tablet(s) PO daily 08/07/2014 Inactive Vitamin D2 50,000 unit capsule RxNorm: 632627 1 Capsule(s) PO QW 05/16/2014 2014 Inactive [SAVINGS FOR NON-COVERED DRUGS -- BIN:197311, PCN: ASPROD1, Group: XXXXX, ID# [id number], Questions: . THIS IS NOT INSURANCE.] Zithromax 500 mg tablet RxNorm: 417472 1 Tablet(s) PO daily 05/10/2014 Inactive Zithromax 500 mg tablet RxNorm: 501878 1 Tablet(s) PO daily 05/15/2014 Inactive [SAVINGS FOR NON-COVERED DRUGS -- BIN:645894, PCN: ASPROD1, Group: XXXXX, ID# [id number], Questions: . THIS IS NOT INSURANCE.] prednisone 20 mg tablet RxNorm: 914193 Tablet(s) PO 3daily x 2days, then 2daily x2days, then 1daily x2days, then 1/2 daily x 2days then stop 03/13/2014 2014 Inactive [SAVINGS FOR UNINSURED PATIENTS -- BIN:770334, PCN: ASPROD1, Group: [id number], ID# [id number], Process claim through [employer], for questions: [phone]. THIS IS NOT INSURANCE.] Levaquin 500 mg tablet RxNorm: 878440 1 Tablet(s) PO daily TAKE ONE TABLET BY MOUTH ONCE DAILY take with benadryl 03/13/2014 03/22/2014 Inactive [SAVINGS FOR UNINSURED PATIENTS -- BIN:007570, PCN: ASPROD1, Group: [id number], ID# [id number], Process claim through [employer], for questions: . THIS IS NOT INSURANCE.] Levaquin 500 mg tablet RxNorm: 822086 1 Tablet(s) PO daily TAKE ONE TABLET BY MOUTH ONCE DAILY take with benadryl 02/26/2014 03/07/2014 Inactive pt to oyster picker today 01/06/14 [SAVINGS FOR UNINSURED PATIENTS -- BIN:070444, PCN: ASPROD1, Group: [id number], ID# [id number], Process claim through [employer], for questions: [phone]. THIS IS NOT INSURANCE.] Xanax 0.25 mg tablet RxNorm: 113784 Tablet(s) PO TAKE ONE TABLET BY MOUTH EVERY 4 TO 6 HOURS NEEDED 02/05/20142013 Inactive (Appended: Controlled substance eRx refill - RxReferenceNumber: [id number]) prednisone 20 mg tablet RxNorm: 038585 2 Tablet(s) PO QAM 01/0601/10/2014 Inactive call pt when ready for oyster picker today 01/06/14 Levaquin 500 mg tablet RxNorm: 463460 1 Tablet(s) PO daily TAKE ONE TABLET BY MOUTH ONCE DAILY take with benadryl 01/06/2014 01/12/2014 Inactive pt to oyster picker today 01/06/14 prednisone 20 mg tablet RxNorm: 751454 Tablet(s) PO 3daily x 2days, then 2daily x2days, then 1daily x2days, then 1/2 daily x 2days then stop 12/13/2013 03/12/2014 Inactive Levaquin 500 mg tablet RxNorm: 722454 1 Tablet(s) PO daily TAKE ONE TABLET BY MOUTH ONCE DAILY take with benadryl 12/13/2013 12/19/2013 Inactive Vitamin D2 50,000 unit capsule RxNorm: 135595 1 Capsule(s) PO QW 12/12/2013 03/11/2014 Inactive weekly x 12 weeks Vitamin D2 50,000 unit capsule RxNorm: 623414 1 Capsule(s) PO QW 12/12/2013 12/11/2013 Inactive metoprolol tartrate 50 mg tablet RxNorm: 964702 2 tabs in morning and 1 tablet at night dose PO as directed 11/03/201305/31 Inactive 2 tabs in the morning, and 1 in the evening Bactroban 2 % topical ointment RxNorm: 079343 1 Application TOP BID 10/30/2013 11/08/2013 Inactive Bactroban 2 % topical ointment RxNorm: 126476 1 Application TOP BID 10/30/2013 10/29/2013 Inactive Lasix 40 mg tablet RxNorm: 773475 1 Tablet(s) PO daily as needed 10/23/2013 2014 Inactive metoprolol tartrate 50 mg tablet RxNorm: 736130 1 Tablet(s) PO BID 08/28/2013 09/26/2013 Inactive 2 tabs in the morning, and 1 in the evening metoprolol tartrate 50 mg tablet RxNorm: 112956 1 Tablet(s) PO BID 08/28/2013 08/27/2013 Inactive 2 tabs in the morning, and 1 in the evening Lasix 40 mg tablet RxNorm: 349646 1 Tablet(s) PO daily 201310/22/2013 Inactive Lasix 40 mg tablet RxNorm: 1 Tablet(s) PO daily 201308/07/2013 Inactive potassium chloride ER 10 mEq tablet,extended release RxNorm: 319503 1 Tablet(s) PO BID 07/14/2013 2014 Inactive Lipitor 20 mg tablet RxNorm: 751604 1 Tablet(s) PO daily 201307/08/2014 Inactive generic ok Xanax 0.25 mg tablet RxNorm: 981869 Tablet(s) PO TAKE 1 TABLET BY MOUTH EVERY 4 TO 6 HOURS NEEDED 07/14/20132013 Inactive (Appended: Controlled substance eRx refill - RxReferenceNumber: [id number]|0|1) Xanax 0.25 mg tablet RxNorm: 672550 Tablet(s) PO TAKE ONE TABLET BY MOUTH EVERY 4 TO 6 HOURS NEEDED 07/14/20132013 Inactive (Appended: Controlled substance eRx refill - RxReferenceNumber: [id number]) metoprolol succinate ER 50 mg tablet,extended release 24 hr RxNorm: 250814 100mg q am 50 in even Tablet(s) PO 07/14/2013 Inactive Levaquin 500 mg tablet RxNorm: 610164 Tablet(s) PO TAKE ONE TABLET BY MOUTH ONCE DAILY 07/13/2013 12/12/2013 Inactive Levaquin 500 mg tablet RxNorm: 720176 Tablet(s) PO TAKE ONE TABLET BY MOUTH ONCE DAILY 07/13/2013 10/22/2013 Inactive Levaquin 500 mg tablet RxNorm: 172868 1 Tablet(s) PO daily 02/201305/22/2013 Inactive Levaquin 500 mg tablet RxNorm: 522655 1 Tablet(s) PO daily 05/15/2013 Inactive Lipitor 20 mg tablet RxNorm: 595985 1 Tablet(s) PO daily 201307/13/2013 Inactive generic ok Kenalog 40 mg/mL suspension for injection RxNorm: 8285873 1 Milliliter(s) Inj 04/14/2013 04/14/2013 Inactive Lipitor 20 mg tablet RxNorm: 955853 1 Tablet(s) PO daily 201304/16/2013 Inactive Lipitor 20 mg tablet RxNorm: 080059 1 Tablet(s) PO daily 201304/13/2013 Inactive metoprolol succinate ER 50 mg tablet,extended release 24 hr RxNorm: 549146 100mg q am 50 in even Tablet(s) PO 04/14/2013 Inactive Levaquin 500 mg tablet RxNorm: 402087 1 Tablet(s) PO daily 04/20/2013 Inactive Carafate 1 gram tablet RxNorm: 810603 1 Tablet(s) PO QID 201303/30/2013 Inactive Carafate 1 gram tablet RxNorm: 643744 1 Tablet(s) PO QID 201304/23/2013 Inactive Zithromax Z-Preston 250 mg tablet RxNorm: 665156 Tablet(s) PO zpack as directed 01/31/2013 04/12/2013 Inactive Zofran 4 mg tablet RxNorm: 181657 1 Tablet(s) PO Q6 PRN 12/0704/12/2013 Inactive Xanax 0.25 mg tablet RxNorm: 260111 Tablet(s) PO TAKE 1 TABLET BY MOUTH EVERY 4 TO 6 HOURS NEEDED 06/20/20122013 Inactive (Appended: Controlled substance eRx refill - RxReferenceNumber: [id number]|1|0|1) Xanax 0.25 mg tablet RxNorm: 285645 1 Tablet(s) PO Q4-6H q 4-6 hrs prn 06/20/2012 No Stop Date Active doxycycline monohydrate 100 mg tablet RxNorm: 928883 1 Tablet(s) PO BID 05/17/2012 05/26/2012 Inactive doxycycline monohydrate 100 mg tablet RxNorm: 934324 1 Tablet(s) PO BID 04/11/2012 04/20/2012 Inactive Kenalog 40 mg/mL Susp for Injection RxNorm: 4517868 1 Milliliter(s) Inj 04/11/2012 04/11/2012 Inactive metoprolol succinate ER 50 mg tablet,extended release 24 hr RxNorm: 622702 Tablet (s) PO TAKE 1 & 1/2 TABLETS BY MOUTH TWICE DAILY 02/01/2012 04/13/2013 Inactive Lipitor 40 mg tablet RxNorm: 074029 Tablet(s) PO TAKE 1 TABLET BY MOUTH EVERY DAY 02/01/2012 04/12/2013 Inactive Pradaxa 150 mg capsule RxNorm: 3828244 Capsule(s) PO 201112/03/2014 Inactive TAKE 1 CAPSULE BY MOUTH TWICE DAILY Xanax 0.25 mg tablet RxNorm: 622127 1 Tablet(s) PO Q4-6H q 4-6 hrs prn 12/28/2011 06/20/2012 Inactive metoprolol succinate ER 50 mg tablet,extended release 24 hr RxNorm: 581877 Tablet (s) PO 12/28/2011 01/31/2012 Inactive TAKE 1 & 1/2 TABLETS BY MOUTH TWICE DAILY Singulair 10 mg tablet RxNorm: 811777 Tablet(s) PO 12/28/2011 04/13/2013 Inactive TAKE ONE TABLET BY MOUTH DAILY clindamycin 150 mg capsule RxNorm: 532017 1 Capsule(s) PO QID 11/25/2011 12/01/2011 Inactive Influenza Virus Vaccine 0.5 mL RxNorm: IM 11/11/2011 11/11/2011 Inactive Pneumovax 23 25 mcg/0.5 mL Injection RxNorm: 315340 Milliliter(s) Inj 11/11/2011 11/11/2011 Inactive Biaxin 500 mg tablet RxNorm: 607681 1 Tablet(s) PO BID 201110/30/2011 Inactive Flagyl 500 mg tablet RxNorm: 786356 1 Tablet(s) PO TID 201109/03/2011 Inactive Flagyl 500 mg tablet RxNorm: 071167 1 Tablet(s) PO TID 201109/10/2011 Inactive doxycycline hyclate 100 mg tablet RxNorm: 622915 1 Tablet(s) PO BID 09/04/2011 09/10/2011 Inactive doxycycline hyclate 100 mg tablet RxNorm: 284071 1 Tablet(s) PO BID 09/04/2011 09/03/2011 Inactive Xopenex 1.25 mg/3 mL Neb Solution RxNorm: 675111 1 Unit(s) INH Q4 PRN 08/18/2011 12/15/2011 Inactive 1 box Xopenex 1.25 mg/3 mL Neb Solution RxNorm: 517569 1 Milliliter(s) INH Q4 PRN 08/18/2011 08/17/2011 Inactive 1 box Zithromax Z-Preston 250 mg Tab RxNorm: 455376 Tablet(s) PO UD 08/1008/11/2011 Inactive doxycycline hyclate 100 mg Tab RxNorm: 389393 1 Tablet(s) PO BID 08/11/2011 08/11/2011 Inactive prednisone 10 mg Tab RxNorm: 539626 1 Tablet(s) PO BID q a.m. and q NOON x 5 days 08/11/2011 08/10/2011 Inactive prednisone 10 mg Tab RxNorm: 394784 1 Tablet(s) PO BID q a.m. and q NOON x 5 days 08/11/2011 08/15/2011 Inactive Kenalog 40 mg/mL Susp for Injection RxNorm: 0690790 1 Milliliter(s) Inj 08/11/2011 08/11/2011 Inactive doxycycline hyclate 100 mg Tab RxNorm: 560240 1 Tablet(s) PO BID 08/11/2011 08/10/2011 Inactive nystatin 100,000 unit/mL Oral Susp RxNorm: 026455 6 Milliliter(s) PO QID 08/10/2011 08/16/2011 Inactive Jamie 60 mg Tab RxNorm: 257498 1 Tablet(s) PO daily 201101/23/2012 Inactive Jamie 60 mg Tab RxNorm: 744805 1 Tablet(s) PO daily 201107/27/2011 Inactive potassium chloride ER 10 mEq tablet,extended release RxNorm: 216664 1 Tablet(s) PO BID 07/27/2011 08/19/2012 Inactive Synthroid 75 mcg Tab RxNorm: 523805 Tablet(s) PO 07/06/2011 07/29/2012 Inactive one tab wednesday1/2 tab other days potassium chloride ER 10 mEq Tab RxNorm: 784940 1 Tablet(s) PO BID 07/02/2011 07/26/2011 Inactive Lasix 40 mg tablet RxNorm: 312168 1 Tablet(s) PO daily 201112/28/2011 Inactive Nexium 40 mg Capsule, delayed release RxNorm: 572503 1 Capsule(s) PO daily 06/25/2011 11/24/2011 Inactive Lexapro 10 mg Tab RxNorm: 324496 1 Tablet(s) PO daily 201107/14/2011 Inactive Carafate 100 mg/mL Oral Susp RxNorm: 549908 10 Milliliter(s) PO QID 06/25/2011 10/20/2011 Inactive dispense qs x 1 month nystatin 100,000 unit/mL Oral Susp RxNorm: 535387 3 Milliliter(s) PO QID swish, gargle, then swallow four times daily. 06/25/2011 07/14/2011 Inactive dispense qs x 10 days. Mucinex 1,200 mg 12 hr Tab RxNorm: 518261 1 Tablet(s) PO BID 07/21/2011 Inactive Lipitor 40 mg tablet RxNorm: 042714 1 Tablet(s) PO daily 201112/18/2011 Inactive lactobacillus acidophilus Cap RxNorm: 2 Capsule(s) PO BID 08/201107/14/2011 Inactive Mucinex 1,200 mg 12 hr Tab RxNorm: 915619 1 Tablet(s) PO BID 06/21/2011 Inactive lactobacillus acidophilus Cap RxNorm: 1 Capsule(s) PO BID 06/21/2011 Inactive Kenalog 40 mg/mL Susp for Injection RxNorm: 3678721 1 Milliliter(s) Inj 06/15/2011 06/15/2011 Inactive Flagyl 500 mg Tab RxNorm: 613479 1 Tablet(s) PO TID 201107/14/2011 Inactive doxycycline hyclate 100 mg Cap RxNorm: 255500 1 Capsule(s) PO BID 06/15/2011 07/14/2011 Inactive clarithromycin 250 mg Tab RxNorm: 630871 1 Tablet(s) PO BID 07/14/2011 Inactive Xanax 0.25 mg tablet RxNorm: 254702 1 Tablet(s) PO Q4-6H q 4-6 hrs prn 05/27/2011 07/16/2011 Inactive Lasix 40 mg Tab RxNorm : 925547 3 Tablet(s) PO as directed 2 q am and 1 q noon 05/27/2011 07/01/2011 Inactive potassium chloride ER 10 mEq Tab RxNorm: 305990 1 Tablet(s) PO BID 05/27/2011 05/26/2011 Inactive KCL 10 meq RxNorm: 1 PO BID 05/27/201112/2011 Inactive potassium chloride ER 10 mEq Tab RxNorm: 938194 1 Tablet(s) PO BID 05/27/2011 06/25/2011 Inactive Pradaxa 75 mg Cap RxNorm: 0008441 2 Capsule(s) PO daily 09/29/2011 Inactive Biaxin 500 mg Tab RxNorm: 493408 1 Tablet(s) PO BID 201103/16/2011 Inactive Biaxin 500 mg Tab RxNorm: 291619 1 Tablet(s) PO BID 201107/14/2011 Inactive azithromycin 250 mg Tab RxNorm: 641580 1 Tablet(s) PO daily two by mouth daily x 3 days, then daily thereafter 02/06/2011 07/14/2011 Inactive two by mouth daily x 3 days, then daily thereafter until supply is exhausted azithromycin 250 mg Tab RxNorm: 453528 1 Tablet(s) PO daily two by mouth daily x 3 days, then daily thereafter 02/06/2011 02/05/2011 Inactive two by mouth daily x 3 days, then daily thereafter until supply is exhausted azithromycin 250 mg Tab RxNorm: 946643 1 Tablet(s) PO daily two by mouth daily x 3 days, then daily thereafter 02/06/2011 02/05/2011 Inactive two by mouth daily x 3 days, then daily thereafter until supply is exhausted Valturna 300 mg-320 mg Tab RxNorm: 2840941 Tablet(s) PO 201007/14/2011 Inactive TAKE 1 TABLET BY MOUTH EVERY DAY Kenalog 40 mg/mL Susp for Injection RxNorm: 1751655 2 Milliliter(s) Inj 11/20/2010 11/20/2010 Inactive Avelox 400 mg Tab RxNorm: 831157 1 Tablet(s) PO daily 201007/14/2011 Inactive Biaxin 500 mg Tab RxNorm: 849097 1 Tablet(s) PO BID 201011/15/2010 Inactive Pradaxa 150 mg Cap RxNorm: 8237643 1 Capsule(s) PO BID 201007/14/2011 Inactive Zyrtec oral RxNorm: 86591 oral No Start Date Active Pepcid oral RxNorm: 4278 oral No Start Date Active doxazosin 2 mg tablet RxNorm: 550821 1/2 Tablet(s) PO BID No Start Date 12/08/2015 Inactive Pyridium 200 mg tablet RxNorm: 8823615 1 Tablet(s) PO TID PRN No Start Date 10/28/2016 Inactive ondansetron 4 mg disintegrating tablet RxNorm: 652193 1 Tablet(s) PO Q4 PRN No Start Date 10/21/2017 Inactive Pradaxa 75 mg Cap RxNorm: 3034181 1 Capsule(s) PO daily No Start Date 05/04/2011 Inactive Singulair 10 mg tablet RxNorm: 376665 1 Tablet(s) PO daily No Start Date 07/14/2011 Inactive hydrocodone-acetaminophen 5 mg-325 mg tablet RxNorm: 014633 1 Tablet(s) PO Q6 PRN No Start Date 04/12/2013 Inactive Toprol XL 100 mg 24 hr Tab RxNorm: 308403 1 Tablet(s) PO BID No Start Date 07/14/2011 Inactive Zofran 4 mg tablet RxNorm: 883699 1 Tablet(s) PO Q6 PRN No Start Date 12/06/2012 Inactive Vitamin D2 50,000 unit capsule RxNorm: 012403 1 Capsule(s) PO QW No Start Date 05/15/2014 Inactive prednisone 10 mg tablet RxNorm: 141538 Tablet(s) PO UD No Start Date 06/15/2017 Inactive 6,5,4,3,2,1 Lipitor 40 mg Tab RxNorm: 386634 1 Tablet(s) PO daily No Start Date 06/21/2011 Inactive Trilipix 135 mg Cap RxNorm: 092206 Capsule(s) PO No Start Date 11/26/2010 Inactive Eliquis 5 mg tablet RxNorm: 8659914 1 Tablet(s) PO BID No Start Date 12/08/2015 Inactive KCL 10 meq RxNorm: 1 PO BID No Start Date 05/26/2011 Inactive Diovan 80 mg Tab RxNorm: 303497 1 Tablet(s) PO QHS No Start Date 07/14/2011 Inactive Lipitor 20 mg tablet RxNorm: 498197 1 Tablet(s) PO daily No Start Date 04/13/2013 Inactive Zithromax Z-Prest[place] 250 mg tablet RxNorm: 902233 Tablet(s) PO No Start Date 01/30/2013 Inactive aspirin 81 mg Tab, Delayed Release RxNorm: 566338 1 Tablet(s) PO daily No Start Date 07/14/2011 Inactive prednisone 20 mg Tab RxNorm: 768555 Tablet(s) PO UD 3 tabs x 1 day, then 2 tabs daily x 2 days then 1 tab daily x 1 days, 1/2 daily x 1 day then 1/2 QOD x 2 doses then stop No Start Date 07/14/2011 Inactive Flonase 50 mcg/actuation Nasal [place] RxNorm: 7222916 2 [place] NASAL daily No Start Date 02/17/2016 Inactive hydrocodone 2.5 mg-guaifenesin 200 mg/5 mL syrup RxNorm: 129104 10 Unit Dose PO Q6 PRN No Start Date 04/25/2017 Inactive potassium chloride ER 10 mEq tablet,extended release RxNorm: 777146 1 Tablet(s) PO daily No Start Date 10/14/2016 Inactive Diovan 160 mg Tab RxNorm: 827162 1 Tablet(s) PO QHS No Start Date 12/20/2011 Inactive Lasix 40 mg Tab RxNorm : 519401 3 Tablet(s) PO as directed 2 q am and 1 q noon No Start Date 05/26/2011 Inactive metoprolol succinate ER 50 mg tablet,extended release 24 hr RxNorm: 211600 1 1 / 2 Tablet(s) PO BID No Start Date 2011 Inactive Carafate 1 gram Tab RxNorm: 415343 1 Tablet(s) PO TID No Start Date 07/14/2011 Inactive doxycycline hyclate 100 mg tablet RxNorm: 004833 1 Tablet(s) PO BID No Start Date 08/10/2016 Inactive Zithromax Z-Prest[place] 250 mg Tab RxNorm: 196392 Oral No Start Date 08/10/2011 Inactive prednisone 20 mg Tab RxNorm: 474337 Tablet(s) PO No Start Date 04/06/2011 Inactive 3 tabs x 2 days, 2 tabs x 2 days, 1 tab x 2 days, 1/2 daily x 4 days then stop Bentyl 10 mg Cap RxNorm: 618498 1 Capsule(s) PO BID No Start Date 07/14/2011 Inactive Xarelto 15 mg tablet RxNorm: 3909260 1 Tablet(s) PO daily No Start Date 06/27/2017 Inactive Valturna 300 mg-320 mg Tab RxNorm: 9557720 1 Tablet(s) PO daily No Start Date 01/19/2011 Inactive Vitamin D 1,000 unit Tab RxNorm: 724351 1 Tablet(s) PO daily No Start Date 07/14/2011 Inactive Lexapro 10 mg Tab RxNorm: 047350 1 Tablet(s) PO daily No Start Date 04/06/2011 Inactive Synthroid 75 mcg Tab RxNorm: 337271 Tablet(s) PO No Start Date 07/05/2011 Inactive Protonix 40 mg Tab RxNorm: 299338 1 Tablet(s) PO daily No Start Date 07/14/2011 Inactive ranitidine 150 mg tablet RxNorm: 238666 1 Tablet(s) PO BID No Start Date 04/25/2017 Inactive prednisone 20 mg tablet RxNorm: 703790 Tablet(s) PO 3daily x 2days, then 2daily x2days, then 1daily x2days, then 1/2 daily x 2days then stop No Start Date 12/12/2013 Inactive Nexium 40 mg Cap RxNorm: 118963 1 Capsule(s) PO daily No Start Date 06/03/2011 Inactive Xanax 0.25 mg Tab RxNorm: 986615 1 Tablet(s) PO Q4-6H q 4-6 hrs prn No Start Date 04/06/2011 Inactive Synthroid 50 mcg Tab RxNorm: 845801 1 Tablet(s) PO daily No Start Date 07/14/2011 Inactive Pradaxa 150 mg capsule RxNorm: 2582832 1 Capsule(s) PO BID No Start Date 12/30/2011 Inactive metoprolol tartrate 25 mg tablet RxNorm: 157521 1 Tablet(s) PO TID No Start Date 12/08/2015 Inactive Singulair 5 mg Chewable Tab RxNorm: 167984 1 Tablet(s) PO every other day No Start Date 04/13/2013 Inactive Medication Administered Medication Codes Instructions Start Date Status ketorolac 60 mg/2 mL intramuscular solution RxNorm: 4937703 [place] 03/21/2018 No longer Active cyanocobalamin (vit B-12) 1,000 mcg/mL injection solution RxNorm: 618740 [place] 09/13/2015 No longer Active Kenalog 40 mg/mL suspension for injection RxNorm: 6361958 [place] 03/27/2015 No longer Active Kenalog 40 mg/mL suspension for injection RxNorm: 5836783 [place] 12/11/2014 No longer Active Kenalog 40 mg/mL suspension for injection RxNorm: 5470482 1Milliliter 04/14/2013 No longer Active Kenalog 40 mg/mL Susp for Injection RxNorm: 2691914 1Milliliter 04/11/2012 No longer Active Influenza Virus Vaccine 0.5 mL RxNorm: 11/11/2011 No longer Active Pneumovax 23 25 mcg/0.5 mL Injection RxNorm: 496659 [place] 11/11/2011 No longer Active Kenalog 40 mg/mL Susp for Injection RxNorm: 2663387 1Milliliter 08/11/2011 No longer Active Kenalog 40 mg/mL Susp for Injection RxNorm: 0071643 1Milliliter 06/15/2011 No longer Active Kenalog 40 mg/mL Susp for Injection RxNorm: 1061905 2[place]il[place] 11/20/2010 No longer Active Immunizations Vaccine [...] medications ICD-9: V58.69 04/12/2013 ESSENTIAL HYPERTENSION SNOMED: 13901130 ICD-9: 401.9 04/12/2013 ATRIAL FIBRILLATION ICD-9: 427.31 [...] Knee pain, acute ICD-9: 719.46 2011 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.3 Encounter for general adult medical [...] Observation Code Item Item Code Result Date Electrolytes Ord62 NA 139 mEq/L 10/12/2017 Electrolytes Ord62 K 4.2 mEq/L 10/12/2017 Electrolytes Ord62 CL 99 mEq/L 10/12/2017 Electrolytes Ord62 CO2 28.0 mEq/L 10/12/2017 Electrolytes Ord62 ANION GAP 16 10/12/2017 Lipid Ord30 CHOL 160 mg/dL 03/15/2017 Lipid Ord30 HDL 46.0 mg/dl 03/15/2017 Lipid Ord30 TRIG 73 mg/dL 03/15/2017 Lipid Ord30 LDL 99 mg/dL 03/15/2017 Lipid Ord30 C/HDL 3.5 Ratio 03/15/2017 Comp Metabolic Exv840 NA 140 mEq/L 03/15/2017 Comp Metabolic Cbl089 K 3.6 mEq/L 03/15/2017 Comp Metabolic Whk339 CL 104 mEq/L 03/15/2017 Comp Metabolic Gso184 CO2 27.0 mEq/L 03/15/2017 Comp Metabolic Wqb443 ANION GAP 13 03/15/2017 Comp Metabolic Lya874 GLUCOSE 93 mg/dL 03/15/2017 Comp Metabolic Wgt727 Creat 0.9 mg/dL 03/15/2017 Comp Metabolic Yds446 eGFR 68 ml/min/1.73m2 03/15/2017 Comp Metabolic Rke460 BUN 10 mg/dL 03/15/2017 Comp Metabolic Xel412 B/C Ratio 11.4 Ratio 03/15/2017 Comp Metabolic Rou289 CALCIUM 9.4 mg/dL 03/15/2017 Comp Metabolic Zjv775 ALK PHOS 84 U/L 03/15/2017 Comp Metabolic Shf048 AST(SGOT) 14 U/L 03/15/2017 Comp Metabolic Imy740 ALT(SGPT) 15 U/L 03/15/2017 Comp Metabolic Irq849 BILI T 0.5 mg/dL 03/15/2017 Comp Metabolic Raj558 ALBUMIN 3.6 g/dL 03/15/2017 Comp Metabolic Uqj870 TPRO 6.0 g/dL 03/15/2017 Comp Metabolic Fcx669 GLOB 2.4 g/dL 03/15/2017 Comp Metabolic Qvb013 A/G Ratio 1.5 Ratio 03/15/2017 Comp Metabolic Uiu215 Osmo 278 mOsmo 03/15/2017 Magnesium Ord90 Mag [...] 30.4 pg 03/15/2017 Cbc With Differential Ord2 [place]% 6.7 % 03/15/2017 Cbc With Differential Ord2 Eos% 1.7 % 03/15/2017 Cbc With Differential Ord2 MCHC 32.3 pg 03/15/2017 Cbc With Differential Ord2 Baso% 0.5 % 03/15/2017 Cbc With Differential Ord2 PLT 181 K/ul 03/15/2017 Cbc With Differential Ord2 RDW 13.7 % 03/15/2017 Cbc With Differential Ord2 Neut ABS# 4.71 K/ul 03/15/2017 Cbc With Differential Ord2 Lymph ABS# 2.24 K/ul 03/15/2017 Cbc With Differential Ord2 [place] ABS# 0.5 K/ul 03/15/2017 Cbc With Differential [...] Ord15 CALCIUM 9.4 mg/dL 01/15/2017 Comp Metabolic Wwk898 NA 137 mEq/L 12/31/2016 Comp Metabolic Pkl831 K 3.2 mEq/L 12/31/2016 Comp Metabolic Dki311 CL 95 mEq/L 12/31/2016 Comp Metabolic Gav139 CO2 30.0 mEq/L 12/31/2016 Comp Metabolic Npf644 ANION GAP 15 12/31/2016 Comp Metabolic Fwi555 GLUCOSE 111 mg/dL 12/31/2016 Comp Metabolic Itg917 Creat 1.3 mg/dL 12/31/2016 Comp Metabolic Qvd552 eGFR 45 ml/min/1.73m2 12/31/2016 Comp Metabolic Vrt630 BUN 14 mg/dL 12/31/2016 Comp Metabolic Uat759 B/C Ratio 11.1 Ratio 12/31/2016 Comp Metabolic Gtx149 CALCIUM 10.0 mg/dL 12/31/2016 Comp Metabolic Bpi756 ALK PHOS 61 U/L 12/31/2016 Comp Metabolic Tew166 AST(SGOT) 14 U/L 12/31/2016 Comp Metabolic Qja673 ALT(SGPT) 13 U/L 12/31/2016 Comp Metabolic Xst534 BILI T 0.9 mg/dL 12/31/2016 Comp Metabolic Dgf677 ALBUMIN 3.8 g/dL 12/31/2016 Comp Metabolic Uvr511 TPRO 6.7 g/dL 12/31/2016 Comp Metabolic Pmn456 GLOB 2.9 g/dL 12/31/2016 Comp Metabolic Uvk293 A/G Ratio 1.3 Ratio 12/31/2016 Comp Metabolic Cvm567 Osmo 275 mOsmo 12/31/2016 Cbc With Differential Ord2 WBC 6.36 K/ul 12/31/2016 Cbc With Differential Ord2 RBC 4.49 M/ul 12/31/2016 Cbc With Differential Ord2 HGB 13.6 g/dl 12/31/2016 Cbc With Differential Ord2 HCT 41.7 % 12/31/2016 Cbc With Differential Ord2 Neut% 56.3 % 12/31/2016 Cbc With Differential Ord2 Lymph% 29.7 % 12/31/2016 Cbc With Differential Ord2 MCV 92.9 fl 12/31/2016 Cbc With Differential Ord2 MCH 30.3 pg 12/31/2016 Cbc With Differential Ord2 [place]% 11.2 % 12/31/2016 Cbc With Differential Ord2 [...] 1.89 K/ul 12/31/2016 Cbc With Differential Ord2 [place] ABS# 0.7 K/ul 12/31/2016 Cbc With Differential Ord2 Eos ABS# 0.1 K/ul 12/31/2016 Cbc With Differential Ord2 Baso ABS# 0.1 K/ul 12/31/2016 Urine Culture Ucult Complete >100,000 col/ml aerobic growth sent to ref lab 10/30/2016 Tsh Ord6 hTSH II 2.88 uIU/mL 09/15/2016 Comp Metabolic Lyf474 NA 139 mEq/L 09/15/2016 Comp Metabolic Xuy978 K 4.0 mEq/L 09/15/2016 Comp Metabolic Hqk903 CL 104 mEq/L 09/15/2016 Comp Metabolic Hiq512 CO2 27.0 mEq/L 09/15/2016 Comp Metabolic Olt634 ANION GAP 12 09/15/2016 Comp Metabolic Lap486 GLUCOSE 105 mg/dL 09/15/2016 Comp Metabolic Zar046 Creat 0.9 mg/dL 09/15/2016 Comp Metabolic Sro604 eGFR 67 ml/min/1.73m2 09/15/2016 Comp Metabolic Del987 BUN 14 mg/dL 09/15/2016 Comp Metabolic Yph867 B/C Ratio 15.7 Ratio 09/15/2016 Comp Metabolic Bvj540 CALCIUM 9.0 mg/dL 09/15/2016 Comp Metabolic Pib598 ALK PHOS 85 U/L 09/15/2016 Comp Metabolic Ivv889 AST(SGOT) 12 U/L 09/15/2016 Comp Metabolic Imw742 ALT(SGPT) 11 U/L 09/15/2016 Comp Metabolic Ofn103 BILI T 0.5 mg/dL 09/15/2016 Comp Metabolic Rnb716 ALBUMIN 3.4 g/dL 09/15/2016 Comp Metabolic Bht509 TPRO 5.8 g/dL 09/15/2016 Comp Metabolic Ljt949 GLOB 2.4 g/dL 09/15/2016 Comp Metabolic Hqm424 A/G Ratio 1.4 Ratio 09/15/2016 Comp Metabolic Ebr495 Osmo 278 mOsmo 09/15/2016 Vitamin D 25 Oh Amd0185 VITAMIN D, 25 HYDROXY 25.95 ng/mL Lipid [...] 9.2 mg/dL 01/13/2016 Vitamin D 25 Oh Fbo3312 VITAMIN D, 25 HYDROXY 38.03 ng/mL Comp Metabolic Cxt610 NA 139 mEq/L 11/28/2015 Comp Metabolic Tfb831 K 4.0 mEq/L 11/28/2015 Comp Metabolic Sst922 CL 105 mEq/L 11/28/2015 Comp Metabolic Twk533 CO2 25.0 mEq/L 11/28/2015 Comp Metabolic Rmg339 ANION GAP 13 11/28/2015 Comp Metabolic Dbo289 GLUCOSE 100 mg/dL 11/28/2015 Comp Metabolic Jux741 Creat 1.1 mg/dL 11/28/2015 Comp Metabolic Zfr512 eGFR 55 ml/min/1.73m2 11/28/2015 Comp Metabolic Gtv037 BUN 13 mg/dL 11/28/2015 Comp Metabolic Ugb630 B/C Ratio 12.3 Ratio 11/28/2015 Comp Metabolic Opz449 CALCIUM 9.2 mg/dL 11/28/2015 Comp Metabolic Cjp107 ALK PHOS 85 U/L 11/28/2015 Comp Metabolic Jul452 AST(SGOT) 15 U/L 11/28/2015 Comp Metabolic Fxy603 ALT(SGPT) 15 U/L 11/28/2015 Comp Metabolic Tir389 BILI T 0.5 mg/dL 11/28/2015 Comp Metabolic Yqt649 ALBUMIN 3.7 g/dL 11/28/2015 Comp Metabolic Uff318 TPRO 6.4 g/dL 11/28/2015 Comp Metabolic Nbm488 GLOB 2.7 g/dL 11/28/2015 Comp Metabolic Hvn579 A/G Ratio 1.4 Ratio 11/28/2015 Comp Metabolic Moo898 Osmo 278 mOsmo 11/28/2015 Tsh Ord6 hTSH II 1.98 uIU/mL 11/28/2015 Free T4 Lxy158 FREE T4 1.04 ng/dL 11/28/2015 Cbc With Differential Ord2 WBC 8.46 K/ul 11/28/2015 Cbc With Differential Ord2 RBC 4.70 M/ul 11/28/2015 Cbc With Differential Ord2 HGB 14.5 g/dl 11/28/2015 Cbc With Differential Ord2 Neut% 65.7 % 11/28/2015 Cbc With Differential Ord2 HCT 44.4 % 11/28/2015 Cbc With Differential Ord2 Lymph% 25.9 % 11/28/2015 Cbc With Differential Ord2 MCV 94.5 fl 11/28/2015 Cbc With Differential Ord2 MCH 30.9 pg 11/28/2015 Cbc With Differential Ord2 [place]% 6.7 % 11/28/2015 Cbc With Differential Ord2 MCHC 32.7 pg 11/28/2015 Cbc With Differential Ord2 Eos% 1.1 % 11/28/2015 Cbc With Differential Ord2 Baso% 0.6 % 11/28/2015 Cbc With Differential Ord2 PLT 157 K/ul 11/28/2015 Cbc With Differential Ord2 RDW 13.2 % 11/28/2015 Cbc With Differential Ord2 Neut ABS# 5.56 K/ul 11/28/2015 Cbc With Differential Ord2 Lymph ABS# 2.19 K/ul 11/28/2015 Cbc With Differential Ord2 [place] ABS# 0.6 K/ul 11/28/2015 Cbc With Differential Ord2 Eos ABS# 0.1 K/ul 11/28/2015 Cbc With Differential Ord2 Baso ABS# 0.1 K/ul 11/28/2015 Comp Metabolic Aix164 NA 135 mEq/L 10/15/2015 Comp Metabolic Itb706 K 3.5 mEq/L 10/15/2015 Comp Metabolic Adk741 CL 100 mEq/L 10/15/2015 Comp Metabolic Qkp667 CO2 29.0 mEq/L 10/15/2015 Comp Metabolic Vuq906 ANION GAP 10 10/15/2015 Comp Metabolic Fiz134 GLUCOSE 88 mg/dL 10/15/2015 Comp Metabolic Fez888 Creat 0.9 mg/dL 10/15/2015 Comp Metabolic Iov223 eGFR 67 ml/min/1.73m2 10/15/2015 Comp Metabolic Azr364 BUN 16 mg/dL 10/15/2015 Comp Metabolic Lfm803 B/C Ratio 17.8 Ratio 10/15/2015 Comp Metabolic Bnf001 CALCIUM 9.4 mg/dL 10/15/2015 Comp Metabolic Xjz724 ALK PHOS 96 U/L 10/15/2015 Comp Metabolic Odz418 AST(SGOT) 15 U/L 10/15/2015 Comp Metabolic Kot639 ALT(SGPT) -125 U/L 10/15/2015 Comp Metabolic Uty789 BILI T 0.4 mg/dL 10/15/2015 Comp Metabolic Xqz687 ALBUMIN 4.2 g/dL 10/15/2015 Comp Metabolic Kxn266 TPRO 7.2 g/dL 10/15/2015 Comp Metabolic Jix327 GLOB 3.1 g/dL 10/15/2015 Comp Metabolic Wdu154 A/G Ratio 1.4 Ratio 10/15/2015 Comp Metabolic Hjn005 Osmo 271 mOsmo 10/15/2015 Comp Metabolic Gec314 NA 135 mEq/L 10/15/2015 Comp Metabolic Ccw571 K 3.5 mEq/L 10/15/2015 Comp Metabolic Kxz045 CL 100 mEq/L 10/15/2015 Comp Metabolic Pmy551 CO2 29.0 mEq/L 10/15/2015 Comp Metabolic Dye677 ANION GAP 10 10/15/2015 Comp Metabolic Rrg754 GLUCOSE 88 mg/dL 10/15/2015 Comp Metabolic Wuk209 Creat 0.9 mg/dL 10/15/2015 Comp Metabolic Adm816 eGFR 67 ml/min/1.73m2 10/15/2015 Comp Metabolic Gjq766 BUN 16 mg/dL 10/15/2015 Comp Metabolic Xbi021 B/C Ratio 17.8 Ratio 10/15/2015 Comp Metabolic Uif216 CALCIUM 9.4 mg/dL 10/15/2015 Comp Metabolic Nus440 ALK PHOS 96 U/L 10/15/2015 Comp Metabolic Pjh394 AST(SGOT) 15 U/L 10/15/2015 Comp Metabolic Att196 ALT(SGPT) 14 U/L 10/15/2015 Comp Metabolic Rec932 BILI T 0.4 mg/dL 10/15/2015 Comp Metabolic Dco682 ALBUMIN 4.2 g/dL 10/15/2015 Comp Metabolic Dlj644 TPRO 7.2 g/dL 10/15/2015 Comp Metabolic Uex938 GLOB 3.1 g/dL 10/15/2015 Comp Metabolic Gzz762 A/G Ratio 1.4 Ratio 10/15/2015 Comp Metabolic Rub102 Osmo 271 mOsmo 10/15/2015 Magnesium Ord90 Mag 2.2 mg/dL 10/15/2015 Magnesium Ord90 Mag 1.9 mg/dL 09/05/2015 Comp Metabolic Bwe825 NA 138 mEq/L 09/05/2015 Comp Metabolic Wzw629 K 3.7 mEq/L 09/05/2015 Comp Metabolic Vfm677 CL 99 mEq/L 09/05/2015 Comp Metabolic Jyp920 CO2 30.0 mEq/L 09/05/2015 Comp Metabolic Cic673 ANION GAP 13 09/05/2015 Comp Metabolic Byt385 GLUCOSE 97 mg/dL 09/05/2015 Comp Metabolic Wbj143 Creat 1.1 mg/dL 09/05/2015 Comp Metabolic Ggz214 eGFR 54 ml/min/1.73m2 09/05/2015 Comp Metabolic Zfn715 BUN 18 mg/dL 09/05/2015 Comp Metabolic Sya210 B/C Ratio 16.7 Ratio 09/05/2015 Comp Metabolic Yqr096 CALCIUM 9.6 mg/dL 09/05/2015 Comp Metabolic Crg458 ALK PHOS 96 U/L 09/05/2015 Comp Metabolic Cfc418 AST(SGOT) 15 U/L 09/05/2015 Comp Metabolic Mmj182 ALT(SGPT) 14 U/L 09/05/2015 Comp Metabolic Oqu479 BILI T 0.5 mg/dL 09/05/2015 Comp Metabolic Ohu050 ALBUMIN 4.1 g/dL 09/05/2015 Comp Metabolic Rxn007 TPRO 7.0 g/dL 09/05/2015 Comp Metabolic Yfv428 GLOB 3.0 g/dL 09/05/2015 Comp Metabolic Nbc268 A/G Ratio 1.4 Ratio 09/05/2015 Comp Metabolic Gtr965 Osmo 277 mOsmo 09/05/2015 Vitamin D 25 Oh Pxl9224 VITAMIN D, 25 HYDROXY 22.39 ng/mL Magnesium Ord90 Mag 2.0 mg/dL 06/11/2015 Tsh Ord6 hTSH II 3.52 uIU/mL 06/11/2015 Comp Metabolic Vsy248 NA 135 mEq/L 06/11/2015 Comp Metabolic Fij206 K 4.3 mEq/L 06/11/2015 Comp Metabolic Qgo018 CL 103 mEq/L 06/11/2015 Comp Metabolic Imr166 CO2 25.0 mEq/L 06/11/2015 Comp Metabolic Bjq023 ANION GAP 11 06/11/2015 Comp Metabolic Wkr164 GLUCOSE 75 mg/dL 06/11/2015 Comp Metabolic Mvk549 Creat 0.9 mg/dL 06/11/2015 Comp Metabolic Xtw685 eGFR 69 ml/min/1.73m2 06/11/2015 Comp Metabolic Xot760 BUN 22 mg/dL 06/11/2015 Comp Metabolic Ffw551 B/C Ratio 25.3 Ratio 06/11/2015 Comp Metabolic Vgk801 CALCIUM 9.2 mg/dL 06/11/2015 Comp Metabolic Tzx940 ALK PHOS 88 U/L 06/11/2015 Comp Metabolic Ode733 AST(SGOT) 13 U/L 06/11/2015 Comp Metabolic Hlz196 ALT(SGPT) 15 U/L 06/11/2015 Comp Metabolic Ifg552 BILI T 0.4 mg/dL 06/11/2015 Comp Metabolic Fxi650 ALBUMIN 3.7 g/dL 06/11/2015 Comp Metabolic Waa414 TPRO 6.6 g/dL 06/11/2015 Comp Metabolic Cap018 GLOB 2.9 g/dL 06/11/2015 Comp Metabolic Roh258 A/G Ratio 1.3 Ratio 06/11/2015 Comp Metabolic Vxd688 Osmo 272 mOsmo 06/11/2015 Free T4 Koi982 FREE T4 0.95 ng/dL 06/11/2015 Cbc With [...] 31.3 pg 06/11/2015 Cbc With Differential Ord2 [place]% 7.4 % 06/11/2015 Cbc With Differential Ord2 MCHC 32.8 pg 06/11/2015 Cbc With Differential Ord2 Eos% 0.7 % 06/11/2015 Cbc With Differential Ord2 Baso% 0.3 % 06/11/2015 Cbc With Differential Ord2 PLT 224 K/ul 06/11/2015 Cbc With Differential Ord2 RDW 12.8 % 06/11/2015 Cbc With Differential Ord2 Neut ABS# 8.11 K/ul 06/11/2015 Cbc With Differential Ord2 Lymph ABS# 2.57 K/ul 06/11/2015 Cbc With Differential Ord2 [place] ABS# 0.9 K/ul 06/11/2015 Cbc With Differential [...] 13.8 % 11/16/2014 Vitamin D 25 Oh Tsx6549 VITAMIN D, 25 HYDROXY 22.85 ng/mL Lipid Ord30 CHOL 206 mg/dL 11/16/2014 Lipid Ord30 HDL 49.0 mg/dl 11/16/2014 Lipid Ord30 TRIG 104 mg/dL 11/16/2014 Lipid Ord30 LDL 136 mg/dL 11/16/2014 Lipid Ord30 C/HDL 4.2 Ratio 11/16/2014 Tsh Ord6 hTSH II 2.05 uIU/mL 11/16/2014 Comp Metabolic Nmy836 NA 138 mEq/L 11/16/2014 Comp Metabolic Ras182 K 4.0 mEq/L 11/16/2014 Comp Metabolic Mew452 CL 104 mEq/L 11/16/2014 Comp Metabolic Atm417 CO2 27.0 mEq/L 11/16/2014 Comp Metabolic Ufh738 ANION GAP 11 11/16/2014 Comp Metabolic Ozq047 GLUCOSE 94 mg/dL 11/16/2014 Comp Metabolic Lwb180 Creat 0.9 mg/dL 11/16/2014 Comp Metabolic Uyv330 eGFR 64 ml/min/1.73m2 11/16/2014 Comp Metabolic Tnz515 BUN 12 mg/dL 11/16/2014 Comp Metabolic Mpd972 B/C Ratio 12.9 Ratio 11/16/2014 Comp Metabolic Oxn502 CALCIUM 9.4 mg/dL 11/16/2014 Comp Metabolic Bzh003 ALK PHOS 88 U/L 11/16/2014 Comp Metabolic Hxa209 AST(SGOT) 14 U/L 11/16/2014 Comp Metabolic Pel611 ALT(SGPT) 12 U/L 11/16/2014 Comp Metabolic Ebe687 BILI T 0.6 mg/dL 11/16/2014 Comp Metabolic Nzv706 ALBUMIN 3.7 g/dL 11/16/2014 Comp Metabolic Six838 TPRO 6.3 g/dL 11/16/2014 Comp Metabolic Dgs092 GLOB 2.6 g/dL 11/16/2014 Comp Metabolic Cxi875 A/G Ratio 1.4 Ratio 11/16/2014 Comp Metabolic Yxd251 Osmo 275 mOsmo 11/16/2014 %Hba1C Rzt610 % HbA1c 08546-3 5.7 % 11/16/2014 %Hba1C Umg002 Gluc Ave 117 mg/dL 11/16/2014 GFR CALC 8253260 GFR AA >60 ML/MIN 04/12/2013 GFR CALC 1113254 GFR NON-AA >60 ML/MIN 04/12/2013 TSH 8549012 TSH 2.194 uIU/ML 04/12/2013 VIT B 12 3707333 VIT B 12 415 PG/ML 04/12/2013 CBC 9779703 WBC 8.8 10e9/L 04/12/2013 CBC 8585892 RBC 4.59 10e12/L 04/12/2013 CBC 7507186 HGB 14.3 g/dL 04/12/2013 CBC 3417073 HCT DET 42.4 % 04/12/2013 CBC 8040028 MCV 92.4 fL 04/12/2013 CBC 1593517 MCH 31.2 pg 04/12/2013 CBC 4525924 MCHC 33.7 g/dL 04/12/2013 CBC 9807321 PLT 213 10e9/L 04/12/2013 CBC 4994377 MPV 12.8 fL 04/12/2013 CBC 3126286 LULU % 61.8 % 04/12/2013 CBC 7729387 LY % 29.2 % 04/12/2013 CBC 0287547 MON % 7.2 % 04/12/2013 CBC 5881689 EOS % 1.3 % 04/12/2013 CBC 5755018 BASO % 0.5 % 04/12/2013 CBC 0249681 RDW 12.6 % 04/12/2013 CBC 6572205 ABS LULU 5.44 10e9/L 04/12/2013 CBC 9523879 ABS LYMPH 2.57 10e9/L 04/12/2013 CBC 0527167 ABS MONO 0.63 10e9/L 04/12/2013 CBC 7673855 ABS EOS 0.11 10e9/L 04/12/2013 CBC 9907881 ABS BASO 0.04 10e9/L 04/12/2013 CBC 8819114 RDW-SD 41.3 fL 04/12/2013 FREE T4 8526598 FREE T4 1.09 NG/DL 04/12/2013 A1C HPLC 2358355 A1C HPLC 00019-6 5.4 % 04/12/2013 CHEM 14 7018100 AST 12 U/L 04/12/2013 CHEM 14 2156960 ALT 11 IU/L 04/12/2013 CHEM 14 0154148 BUN 14 MG/DL 04/12/2013 CHEM 14 8882638 ALBUMIN 4.1 GM/DL 04/12/2013 CHEM 14 8417071 CHLORIDE 105 MMOL/L 04/12/2013 CHEM 14 3193557 BILI TOT 0.6 MG/DL 04/12/2013 CHEM 14 1775623 ALK PHOS 81 U/L 04/12/2013 CHEM 14 0561020 SODIUM 138 MMOL/L 04/12/2013 CHEM 14 8685863 CREATININE 0.86 MG/DL 04/12/2013 CHEM 14 9330264 CALCIUM 9.8 MG/DL 04/12/2013 CHEM 14 1905058 POTASSIUM 4.1 MMOL/L 04/12/2013 CHEM 14 1254049 PROT TOT 6.6 GM/DL 04/12/2013 CHEM 14 2122561 GLUCOSE 112 MG/DL 04/12/2013 CHEM 14 4337894 BICARB 27 MMOL/L 04/12/2013 CHEM 14 5295864 ANION GAP 6 MEQ/L 04/12/2013 LIPID GRP HDL TEST 55 MG/DL 04/12/2013 LIPID GRP TRIG 107 MG/DL 04/12/2013 LIPID GRP TEST LDL 193 MG/DL 04/12/2013 LIPID GRP CHOL 269 MG/DL 04/12/2013 LIPID GRP RCHOL/HDL 4.89 RATIO 04/12/2013 NICOT QN S 0903509 NICOTIN S < 2.0 NG/ML 03/07/2012 NICOT QN S 8851617 XCOTININ S < 2.0 NG/ML 03/07/2012 CBC 6159139 WBC 8.1 10e9/L 03/02/2012 CBC 2134087 RBC 4.44 10e12/L 03/02/2012 CBC 4274790 HGB 13.8 g/dL 03/02/2012 CBC 7238810 HCT DET 41.3 % 03/02/2012 CBC 2791489 MCV 93.0 fL 03/02/2012 CBC 2394700 MCH 31.1 pg 03/02/2012 CBC 1573963 MCHC 33.4 g/dL 03/02/2012 CBC 3146751 PLT 188 10e9/L 03/02/2012 CBC 2013057 MPV 14.3 fL 03/02/2012 CBC 8624856 LULU % 61.5 % 03/02/2012 CBC 2010407 LY % 28.8 % 03/02/2012 CBC 5516166 MON % 8.0 % 03/02/2012 CBC 2093156 EOS % 1.1 % 03/02/2012 CBC 0293073 BASO % 0.6 % 03/02/2012 CBC 8631701 RDW 14.0 % 03/02/2012 CBC 5669283 ABS LULU 4.98 10e9/L 03/02/2012 CBC 4510401 ABS LYMPH 2.33 10e9/L 03/02/2012 CBC 7307776 ABS MONO 0.65 10e9/L 03/02/2012 CBC 9735100 ABS EOS 0.09 10e9/L 03/02/2012 CBC 5226345 ABS BASO 0.05 10e9/L 03/02/2012 CBC 5575949 RDW-SD 46.3 fL 03/02/2012 LIPID GRP HDL TEST 37 MG/DL 03/02/2012 LIPID GRP TRIG 136 MG/DL 03/02/2012 LIPID GRP [id number] TEST LDL 106 MG/DL 03/02/2012 LIPID GRP CHOL 170 MG/DL 03/02/2012 LIPID GRP RCHOL/HDL 4.59 RATIO 03/02/2012 GFR CALC 0400110 GFR AA >60 ML/MIN 03/02/2012 GFR CALC 1039541 GFR NON-AA >60 ML/MIN 03/02/2012 FREE T4 5156649 FREE T4 1.09 NG/DL 03/02/2012 A1C HPLC 3691499 A1C HPLC 36575-3 5.4 % 03/02/2012 CHEM 14 20270820 AST 17 U/L 03/02/2012 CHEM 14 20270820 ALT 22 IU/L 03/02/2012 CHEM 14 20270820 BUN 15 MG/DL 03/02/2012 CHEM 14 4975453 ALBUMIN 4.0 GM/DL 03/02/2012 CHEM 14 8667538 CHLORIDE 107 MMOL/L 03/02/2012 CHEM 14 4094767 BILI TOT 0.4 MG/DL 03/02/2012 CHEM 14 5618706 ALK PHOS 83 U/L 03/02/2012 CHEM 14 8066598 SODIUM 141 MMOL/L 03/02/2012 CHEM 14 9364421 CREATININE 0.86 MG/DL 03/02/2012 CHEM 14 7548117 CALCIUM 9.5 MG/DL 03/02/2012 CHEM 14 0886601 POTASSIUM 4.0 MMOL/L 03/02/2012 CHEM 14 7272898 PROT TOT 6.6 GM/DL 03/02/2012 CHEM 14 6476928 GLUCOSE 102 MG/DL 03/02/2012 CHEM 14 8564977 BICARB 28 MMOL/L 03/02/2012 CHEM 14 5724574 ANION GAP 6 MEQ/L 03/02/2012 TSH 3773375 TSH 2.320 uIU/ML 03/02/2012 GFR CALC 0864966 GFR AA >60 ML/MIN 07/03/2011 GFR CALC 6925795 GFR NON-AA 54.0L ML/MIN 07/03/2011 CHEM 14 8483302 AST 15 U/L 07/03/2011 CHEM 14 3308194 ALT 30 IU/L 07/03/2011 CHEM 14 5389617 BUN 19 MG/DL 07/03/2011 CHEM 14 2158070 ALBUMIN 4.2 GM/DL 07/03/2011 CHEM 14 9099272 CHLORIDE 100 MMOL/L 07/03/2011 CHEM 14 5196058 BILI TOT 0.8 MG/DL 07/03/2011 CHEM 14 3389983 ALK PHOS 74 U/L 07/03/2011 CHEM 14 5064137 SODIUM 137 MMOL/L 07/03/2011 CHEM 14 3988439 CREATININE 1.03 MG/DL 07/03/2011 CHEM 14 8043940 CALCIUM 9.6 MG/DL 07/03/2011 CHEM 14 0200844 POTASSIUM 4.4 MMOL/L 07/03/2011 CHEM 14 7980131 PROT TOT 6.7 GM/DL 07/03/2011 CHEM 14 4897219 GLUCOSE 106 MG/DL 07/03/2011 CHEM 14 0064709 BICARB 28 MMOL/L 07/03/2011 CHEM 14 0737053 ANION GAP 9 MEQ/L 07/03/2011 URINALYSIS NONAUTO W/O SCOPE 83971 Specific [place] 1.010 DateTime(Free Text in Aprima) URINALYSIS NONAUTO W/O SCOPE 89097 PH 5 DateTime(Free Text in Aprima) URINALYSIS NONAUTO W/O SCOPE 04705 GLUCOSE neg DateTime( Free Text in Aprima)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
--- OUTSIDE RECORDS SUMMARY | 2018-06-03 07:59 | XMS REPORT | CCD ---
Author Author [facility] Address [address] [place] [address] Phone Care Team Providers Care Sound Mixer Name Role Phone PP Unavailable CCM Unavailable Summary Purpose Interface Exchange Insurance Providers Payer name Policy type / Coverage type Covered democrat ID Effective Begin Date Effective End Date WPS Medicare Part B [id number] 2017 Unknown [facility] [employer] [facility] [id number] Unknown Family history Father Diagnosis Age At Onset No Family Disease Entered N/A Runs in the family Diagnosis Age At Onset Diabetes Unknown Mother Diagnosis Age At Onset No Family Disease Entered N/A Social History Social History Element Codes Description Effective Dates Employment Unknown 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 Active 03/17/2011 Unknown Obesity ICD-9: [...] Problems Condition Codes Effective Dates Condition Status Urinary tract infection, site not specified ICD-9: [...] SINUSITIS ICD-9 : 461.9 03/17/2011 Active 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 03/17/2011 Active Obesity ICD-9: 278.00 [...] Start Date Stop Date Status Fill Instructions Voltaren 1 % topical gel RxNorm: 489617 4 Gram(s) TOP QID 03/1104/09/2018 Active Voltaren 1 % topical gel RxNorm: 810975 4 Gram(s) TOP QID 03/1103/10/2018 Inactive Xanax 0.25 mg tablet RxNorm: 551443 Tablet(s) PO TAKE ONE TABLET BY MOUTH EVERY 4 TO 6 HOURS NEEDED 03/09/20182018 Active potassium chloride ER 10 mEq tablet,extended release RxNorm: 249493 TAKE 2 CAPSULES BY MOUTH TWICE DAILY 02/28/2018 No Stop Date Active Levaquin 500 mg tablet RxNorm: 668434 1 Tablet(s) PO daily 12/201701/31/2018 Inactive Macrobid 100 mg capsule RxNorm: 100455 1 Capsule(s) PO BID 01/06/2018 Inactive Macrobid 100 mg capsule RxNorm: 646352 1 Capsule(s) PO BID 12/30/2017 Inactive ondansetron 4 mg disintegrating tablet RxNorm: 061710 1 Tablet(s) PO Q4 PRN 10/22/2017 No Stop Date Active Xanax 0.25 mg tablet RxNorm: 595111 Tablet(s) PO TAKE ONE TABLET BY MOUTH EVERY 4 TO 6 HOURS NEEDED 07/29/20172017 Inactive Levaquin 500 mg tablet RxNorm: 555362 1 Tablet(s) PO daily 07/14/2017 Inactive Levaquin 500 mg tablet RxNorm: 567708 1 Tablet(s) PO daily 07/21/2017 Inactive Xarelto 20 mg tablet RxNorm: 4780752 1 Tablet(s) PO daily 06/2812/24/2017 Inactive Xarelto 20 mg tablet RxNorm: 4894189 1 Tablet(s) PO daily 06/2806/27/2017 Inactive potassium chloride ER 10 mEq tablet,extended release RxNorm: 613126 2 Capsule(s) PO BID 06/28/2017 12/24/2017 Inactive potassium chloride ER 10 mEq tablet,extended release RxNorm: 213156 2 Capsule(s) PO BID 06/28/2017 06/27/2017 Inactive prednisone 10 mg tablet RxNorm: 867991 Tablet(s) PO UD 2017 No Stop Date Active 6,5,4,3,2,1 Vitamin D2 50,000 unit capsule RxNorm: 621940 1 Capsule(s) PO QW 04/26/2017 07/24/2017 Inactive Lexapro 10 mg tablet RxNorm: 318253 1 Tablet(s) PO QHS 201601/11/2017 Inactive Lexapro 10 mg tablet RxNorm: 548014 1 Tablet(s) PO QHS 201604/25/2017 Inactive famotidine 20 mg tablet RxNorm: 768386 1 Tablet(s) PO BID 01/0601/05/2017 Inactive famotidine 20 mg tablet RxNorm: 226997 1 Tablet(s) PO BID 01/0604/25/2017 Inactive doxazosin 2 mg tablet RxNorm: 059550 TAKE ONE-HALF TABLET BY MOUTH TWICE DAILY 12/17/2016 04/25/2017 Inactive Xanax 0.25 mg tablet RxNorm: 902124 Tablet(s) PO TAKE ONE TABLET BY MOUTH EVERY 4 TO 6 HOURS NEEDED 11/12/20162016 Inactive Xanax 0.25 mg tablet RxNorm: 616736 Tablet(s) PO TAKE ONE TABLET BY MOUTH EVERY 4 TO 6 HOURS NEEDED 11/12/20162016 Inactive Levaquin 500 mg tablet RxNorm: 779041 1 Tablet(s) PO daily 10/28/2016 Inactive Levaquin 500 mg tablet RxNorm: 192842 1 Tablet(s) PO daily 11/04/2016 Inactive Pyridium 200 mg tablet RxNorm: 0911362 1 Tablet(s) PO TID PRN 10/29/2016 04/25/2017 Inactive potassium chloride ER 10 mEq tablet,extended release RxNorm: 853949 2 Capsule(s) PO BID 10/20/2016 02/16/2017 Inactive potassium chloride ER 10 mEq tablet,extended release RxNorm: 714724 2 Capsule(s) PO BID 10/16/2016 10/19/2016 Inactive potassium chloride ER 10 mEq tablet,extended release RxNorm: 394387 1 Capsule(s) PO daily 10/15/2016 10/15/2016 Inactive potassium chloride 40 mEq/15 mL oral liquid RxNorm: 605884 7.5 Milliliter(s) PO BID 10/05/2016 10/11/2016 Inactive potassium chloride 40 mEq/15 mL oral liquid RxNorm: 115336 7.5 Milliliter(s) PO BID 10/05/2016 10/04/2016 Inactive potassium chloride 40 mEq/15 mL oral liquid RxNorm: 674364 7.5 Milliliter(s) PO BID 10/05/2016 10/04/2016 Inactive doxycycline hyclate 100 mg tablet RxNorm: 608066 1 Tablet(s) PO BID 09/30/2016 10/09/2016 Inactive Vitamin D2 50,000 unit capsule RxNorm: 407551 1 Capsule(s) PO QW 09/15/2016 09/14/2016 Inactive Vitamin D2 50,000 unit capsule RxNorm: 303612 1 Capsule(s) PO QW 09/15/2016 12/13/2016 Inactive doxycycline hyclate 100 mg tablet RxNorm: 311980 1 Tablet(s) PO BID 08/11/2016 08/24/2016 Inactive doxycycline hyclate 100 mg tablet RxNorm: 387965 1 Tablet(s) PO BID 07/24/2016 07/28/2016 Inactive mupirocin 2 % topical ointment RxNorm: 357583 1 Application TOP BID 07/24/2016 07/23/2016 Inactive mupirocin 2 % topical ointment RxNorm: 374856 1 Application TOP BID 07/24/2016 07/30/2016 Inactive doxycycline hyclate 100 mg tablet RxNorm: 793246 1 Tablet(s) PO BID 07/24/2016 07/23/2016 Inactive potassium chloride ER 10 mEq tablet,extended release RxNorm: 531943 2 Tablet(s) PO BID 07/20/2016 10/04/2016 Inactive Lasix 20 mg tablet RxNorm: 844449 1 Tablet(s) PO PRN 2016 No Stop Date Active PRN for swelling Xanax 0.25 mg tablet RxNorm: 465629 Tablet(s) PO TAKE ONE TABLET BY MOUTH EVERY 4 TO 6 HOURS NEEDED 06/19/20162016 Inactive prednisone 20 mg tablet RxNorm: 930211 1 Tablet(s) PO BID 06/0306/07/2016 Inactive potassium chloride ER 10 mEq tablet,extended release RxNorm: 185903 2 Tablet(s) PO BID 05/06/2016 05/05/2016 Inactive potassium chloride ER 10 mEq tablet,extended release RxNorm: 892721 2 Tablet(s) PO BID 05/06/2016 06/04/2016 Inactive Levaquin 500 mg tablet RxNorm: 503230 1 Tablet(s) PO daily 03/30/2016 Inactive Levaquin 500 mg tablet RxNorm: 415079 1 Tablet(s) PO daily 04/06/2016 Inactive prednisone 20 mg tablet RxNorm: 901732 1 Tablet(s) PO BID 02/2402/29/2016 Inactive prednisone 20 mg tablet RxNorm: 935598 1 Tablet(s) PO BID 02/2402/24/2016 Inactive Flonase 50 mcg/actuation nasal spray,suspension RxNorm: 8256264 2 [place] NASAL daily 02/18/2016 02/27/2016 Inactive doxycycline hyclate 100 mg tablet RxNorm: 337355 1 Tablet(s) PO BID 02/18/2016 02/27/2016 Inactive doxycycline hyclate 100 mg tablet RxNorm: 821569 1 Tablet(s) PO BID 02/18/2016 02/17/2016 Inactive cyclobenzaprine 5 mg tablet RxNorm: 922578 1-2 Tablet(s) PO TID as needed 02/12/2016 02/21/2016 Inactive cyclobenzaprine 5 mg tablet RxNorm: 199578 1-2 Tablet(s) PO TID as needed 02/12/2016 02/11/2016 Inactive Xanax 0.25 mg tablet RxNorm: 631666 Tablet(s) PO TAKE ONE TABLET BY MOUTH EVERY 4 TO 6 HOURS NEEDED 01/20/20162016 Inactive (Appended: Controlled substance eRx refill - RxReferenceNumber: [id number]) metoprolol tartrate 25 mg tablet RxNorm: 455879 1/2 Tablet(s) PO BID 12/13/2015 04/10/2016 Inactive doxazosin 2 mg tablet RxNorm: 114381 1 Tablet(s) PO QHS 201512/16/2016 Inactive metoprolol tartrate 25 mg tablet RxNorm: 663808 1/2 Tablet(s) PO BID 12/09/2015 12/12/2015 Inactive Vitamin D2 50,000 unit capsule RxNorm: 628580 1 Capsule(s) PO QW 12/09/2015 02/06/2016 Inactive Lasix 20 mg tablet RxNorm: 481164 1 Tablet(s) PO PRN 201507/05/2016 Inactive PRN for swelling potassium chloride ER 20 mEq tablet,extended release RxNorm: 857876 1 Tablet(s) PO daily as needed When taking lasix 10/03/2015 04/26/2016 Inactive cyanocobalamin (vit B-12) 1,000 mcg/mL injection solution RxNorm: 075286 Milliliter(s) Inj 09/13/2015 09/13/2015 Inactive doxycycline hyclate 100 mg tablet RxNorm: 210423 1 Tablet(s) PO BID 09/12/2015 09/18/2015 Inactive potassium chloride ER 10 mEq tablet,extended release RxNorm: 866798 1 Tablet(s) PO daily as needed When taking lasix 09/04/2015 10/02/2015 Inactive Lasix 20 mg tablet RxNorm: 040386 1 Tablet(s) PO PRN 201510/02/2015 Inactive PRN for swelling doxycycline hyclate 100 mg tablet RxNorm: 633947 1 Tablet(s) PO BID 08/26/2015 08/25/2015 Inactive doxycycline hyclate 100 mg tablet RxNorm: 685429 1 Tablet(s) PO BID 08/26/2015 09/01/2015 Inactive mupirocin 2 % topical ointment RxNorm: 460733 1 Application TOP BID 08/02/2015 08/01/2015 Inactive mupirocin 2 % topical ointment RxNorm: 167669 1 Application TOP BID 08/02/2015 08/08/2015 Inactive metoprolol tartrate 50 mg tablet RxNorm: 266206 2 tabs in morning and 1 tablet at night dose PO as directed 06/13/201510/23 Inactive 2 tabs in the morning, and 1 in the evening Benicar 40 mg tablet RxNorm: 919094 1 Tablet(s) PO daily 201510/21/2015 Inactive Benicar 40 mg tablet RxNorm: 027942 1 Tablet(s) PO daily 201506/12/2015 Inactive Vitamin D2 50,000 unit capsule RxNorm: 589218 1 Capsule(s) PO QW 06/11/2015 12/07/2015 Inactive Xanax 0.25 mg tablet RxNorm: 179826 Tablet(s) PO TAKE ONE TABLET BY MOUTH EVERY 4 TO 6 HOURS NEEDED 06/06/20152015 Inactive (Appended: Controlled substance eRx refill - RxReferenceNumber: [id number]) Levaquin 500 mg tablet RxNorm: 372306 1 Tablet(s) PO daily 11/201510/28/2015 Inactive Kenalog 40 mg/mL suspension for injection RxNorm: 1225400 Milliliter(s) Inj 03/27/2015 03/27/2015 Inactive Kenalog 40 mg/mL suspension for injection RxNorm: 5046631 Milliliter(s) Inj 12/11/2014 12/11/2014 Inactive Vitamin D2 50,000 unit capsule RxNorm: 787954 1 Capsule(s) PO QW 12/05/2014 06/02/2015 Inactive [SAVINGS FOR NON-COVERED DRUGS -- BIN:669422, PCN: ASPROD1, Group: XXXXX, ID# [id number], Questions: . THIS IS NOT INSURANCE.] Pradaxa 150 mg capsule RxNorm: 7063723 Capsule(s) PO BID 201409/08/2015 Inactive TAKE 1 CAPSULE BY MOUTH TWICE DAILY Vitamin D2 50,000 unit capsule RxNorm: 072659 1 Capsule(s) PO QW 12/04/2014 12/04/2014 Inactive [SAVINGS FOR NON-COVERED DRUGS -- BIN:838127, PCN: ASPROD1, Group: XXXXX, ID# [id number], Questions: . THIS IS NOT INSURANCE.] Lasix 20 mg tablet RxNorm: 105092 1 Tablet(s) PO PRN 201411/25/2014 Inactive PRN for swelling Levaquin 500 mg tablet RxNorm: 808172 1 Tablet(s) PO daily 01/201511/25/2014 Inactive Levaquin 500 mg tablet RxNorm: 419942 1 Tablet(s) PO daily 01/201512/02/2014 Inactive Lasix 20 mg tablet RxNorm: 901598 1 Tablet(s) PO PRN 201409/03/2015 Inactive PRN for swelling nitrofurantoin 100 mg capsule RxNorm: 349107 1 Capsule(s) PO BID 11/12/2014 11/17/2014 Inactive Macrobid 100 mg capsule RxNorm: 450661 1 Capsule(s) PO BID 11/18/2014 Inactive Macrobid 100 mg capsule RxNorm: 813993 1 Capsule(s) PO BID 11/11/2014 Inactive Levaquin 500 mg tablet RxNorm: 377889 1 Tablet(s) PO daily 11/11/2014 Inactive metoprolol tartrate 50 mg tablet RxNorm: 569516 2 tabs in morning and 1 tablet at night dose PO as directed 10/25/201405/21 Inactive 2 tabs in the morning, and 1 in the evening Xanax 0.25 mg tablet RxNorm: 389747 Tablet(s) PO TAKE ONE TABLET BY MOUTH EVERY 4 TO 6 HOURS NEEDED 08/30/20142014 Inactive (Appended: Controlled substance eRx refill - RxReferenceNumber: [id number]) Levaquin 500 mg tablet RxNorm: 139480 1 Tablet(s) PO daily 07/31/2014 Inactive Levaquin 500 mg tablet RxNorm: 609914 1 Tablet(s) PO daily 08/07/2014 Inactive Vitamin D2 50,000 unit capsule RxNorm: 215456 1 Capsule(s) PO QW 05/16/2014 2014 Inactive [SAVINGS FOR NON-COVERED DRUGS -- BIN:382005, PCN: ASPROD1, Group: XXXXX, ID# [id number], Questions: . THIS IS NOT INSURANCE.] Zithromax 500 mg tablet RxNorm: 386321 1 Tablet(s) PO daily 05/10/2014 Inactive Zithromax 500 mg tablet RxNorm: 436339 1 Tablet(s) PO daily 05/15/2014 Inactive [SAVINGS FOR NON-COVERED DRUGS -- BIN:767472, PCN: ASPROD1, Group: XXXXX, ID# [id number], Questions: . THIS IS NOT INSURANCE.] prednisone 20 mg tablet RxNorm: 255185 Tablet(s) PO 3daily x 2days, then 2daily x2days, then 1daily x2days, then 1/2 daily x 2days then stop 03/13/2014 2014 Inactive [SAVINGS FOR UNINSURED PATIENTS -- BIN:368308, PCN: ASPROD1, Group: [id number], ID# [id number], Process claim through [employer], for questions: [phone]. THIS IS NOT INSURANCE.] Levaquin 500 mg tablet RxNorm: 586460 1 Tablet(s) PO daily TAKE ONE TABLET BY MOUTH ONCE DAILY take with benadryl 03/13/2014 03/22/2014 Inactive [SAVINGS FOR UNINSURED PATIENTS -- BIN:609197, PCN: ASPROD1, Group: [id number], ID# [id number], Process claim through [employer], for questions: . 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 01/06/14 prednisone 20 mg tablet RxNorm: 519253 Tablet(s) PO 3daily x 2days, then 2daily x2days, then 1daily x2days, then 1/2 daily x 2days then stop 12/13/2013 03/12/2014 Inactive Levaquin 500 mg tablet RxNorm: 085429 1 Tablet(s) PO daily TAKE ONE TABLET BY MOUTH ONCE DAILY take with benadryl 12/13/2013 12/19/2013 Inactive Vitamin D2 50,000 unit capsule RxNorm: 772652 1 Capsule(s) PO QW 12/12/2013 03/11/2014 Inactive weekly x 12 weeks Vitamin D2 50,000 unit capsule RxNorm: 507119 1 Capsule(s) PO QW 12/12/2013 12/11/2013 Inactive metoprolol tartrate 50 mg tablet RxNorm: 076307 2 tabs in morning and 1 tablet at night dose PO as directed 11/03/201305/31 Inactive 2 tabs in the morning, and 1 in the evening Bactroban 2 % topical ointment RxNorm: 073610 1 Application TOP BID 10/30/2013 11/08/2013 Inactive Bactroban 2 % topical ointment RxNorm: 243217 1 Application TOP BID 10/30/2013 10/29/2013 Inactive Lasix 40 mg tablet RxNorm: 901027 1 Tablet(s) PO daily as needed 10/23/2013 2014 Inactive metoprolol tartrate 50 mg tablet RxNorm: 149928 1 Tablet(s) PO BID 08/28/2013 09/26/2013 Inactive 2 tabs in the morning, and 1 in the evening metoprolol tartrate 50 mg tablet RxNorm: 598725 1 Tablet(s) PO BID 08/28/2013 08/27/2013 Inactive 2 tabs in the morning, and 1 in the evening Lasix 40 mg tablet RxNorm: 645836 1 Tablet(s) PO daily 201310/22/2013 Inactive Lasix 40 mg tablet RxNorm: 385904 1 Tablet(s) PO daily 201308/07/2013 Inactive potassium chloride ER 10 mEq tablet,extended release RxNorm: 954215 1 Tablet(s) PO BID 07/14/2013 2014 Inactive Lipitor 20 mg tablet RxNorm: 878438 1 Tablet(s) PO daily 201307/08/2014 Inactive generic ok Xanax 0.25 mg tablet RxNorm: 966655 Tablet(s) PO TAKE 1 TABLET BY MOUTH EVERY 4 TO 6 HOURS NEEDED 07/14/20132013 Inactive (Appended: Controlled substance eRx refill - RxReferenceNumber: [id number]|1|0|1) Xanax 0.25 mg tablet RxNorm: 144615 Tablet(s) PO TAKE ONE TABLET BY MOUTH EVERY 4 TO 6 HOURS NEEDED 07/14/20132013 Inactive (Appended: Controlled substance eRx refill - RxReferenceNumber: [id number]) metoprolol succinate ER 50 mg tablet,extended release 24 hr RxNorm: 539643 100mg q am 50 in even Tablet(s) PO 07/14/2013 Inactive Levaquin 500 mg tablet RxNorm: 997258 Tablet(s) PO TAKE ONE TABLET BY MOUTH ONCE DAILY 07/13/2013 12/12/2013 Inactive Levaquin 500 mg tablet RxNorm: 303740 Tablet(s) PO TAKE ONE TABLET BY MOUTH ONCE DAILY 07/13/2013 10/22/2013 Inactive Levaquin 500 mg tablet RxNorm: 624168 1 Tablet(s) PO daily 02/201305/22/2013 Inactive Levaquin 500 mg tablet RxNorm: 473609 1 Tablet(s) PO daily 05/15/2013 Inactive Lipitor 20 mg tablet RxNorm: 424030 1 Tablet(s) PO daily 201307/13/2013 Inactive generic ok Kenalog 40 mg/mL suspension for injection RxNorm: 5174231 1 Milliliter(s) Inj 04/14/2013 04/14/2013 Inactive Lipitor 20 mg tablet RxNorm: 376279 1 Tablet(s) PO daily 201304/16/2013 Inactive Lipitor 20 mg tablet RxNorm: 421989 1 Tablet(s) PO daily 201304/13/2013 Inactive metoprolol succinate ER 50 mg tablet,extended release 24 hr RxNorm: 507859 100mg q am 50 in even Tablet(s) PO 04/14/2013 Inactive Levaquin 500 mg tablet RxNorm: 584277 1 Tablet(s) PO daily 04/20/2013 Inactive Carafate 1 gram tablet RxNorm: 910345 1 Tablet(s) PO QID 201303/30/2013 Inactive Carafate 1 gram tablet RxNorm: 700232 1 Tablet(s) PO QID 201304/23/2013 Inactive Zithromax Z-Preston 250 mg tablet RxNorm: 031431 Tablet(s) PO zpack as directed 01/31/2013 04/12/2013 Inactive Zofran 4 mg tablet RxNorm: 876763 1 Tablet(s) PO Q6 PRN 12/0704/12/2013 Inactive Xanax 0.25 mg tablet RxNorm: 623951 Tablet(s) PO TAKE 1 TABLET BY MOUTH EVERY 4 TO 6 HOURS NEEDED 06/20/20122013 Inactive (Appended: Controlled substance eRx refill - RxReferenceNumber: [id number]|1|0|1) Xanax 0.25 mg tablet RxNorm: 995729 1 Tablet(s) PO Q4-6H q 4-6 hrs prn 06/20/2012 No Stop Date Active doxycycline monohydrate 100 mg tablet RxNorm: 481848 1 Tablet(s) PO BID 05/17/2012 05/26/2012 Inactive doxycycline monohydrate 100 mg tablet RxNorm: 019715 1 Tablet(s) PO BID 04/11/2012 04/20/2012 Inactive Kenalog 40 mg/mL Susp for Injection RxNorm: 5944967 1 Milliliter(s) Inj 04/11/2012 04/11/2012 Inactive metoprolol succinate ER 50 mg tablet,extended release 24 hr RxNorm: 005874 Tablet (s) PO TAKE 1 & 1/2 TABLETS BY MOUTH TWICE DAILY 02/01/2012 04/13/2013 Inactive Lipitor 40 mg tablet RxNorm: 449323 Tablet(s) PO TAKE 1 TABLET BY MOUTH EVERY DAY 02/01/2012 04/12/2013 Inactive Pradaxa 150 mg capsule RxNorm: 1890268 Capsule(s) PO 201112/03/2014 Inactive TAKE 1 CAPSULE BY MOUTH TWICE DAILY Xanax 0.25 mg tablet RxNorm: 457101 1 Tablet(s) PO Q4-6H q 4-6 hrs prn 12/28/2011 06/20/2012 Inactive metoprolol succinate ER 50 mg tablet,extended release 24 hr RxNorm: 212640 Tablet (s) PO 12/28/2011 01/31/2012 Inactive TAKE 1 & 1/2 TABLETS BY MOUTH TWICE DAILY Singulair 10 mg tablet RxNorm: 204279 Tablet(s) PO 12/28/2011 04/13/2013 Inactive TAKE ONE TABLET BY MOUTH DAILY clindamycin 150 mg capsule RxNorm: 178545 1 Capsule(s) PO QID 11/25/2011 12/01/2011 Inactive Influenza Virus Vaccine 0.5 mL RxNorm: IM 11/11/2011 11/11/2011 Inactive Pneumovax 23 25 mcg/0.5 mL Injection RxNorm: 938206 Milliliter(s) Inj 11/11/2011 11/11/2011 Inactive Biaxin 500 mg tablet RxNorm: 529388 1 Tablet(s) PO BID 201110/30/2011 Inactive Flagyl 500 mg tablet RxNorm: 169552 1 Tablet(s) PO TID 201109/03/2011 Inactive Flagyl 500 mg tablet RxNorm: 742996 1 Tablet(s) PO TID 201109/10/2011 Inactive doxycycline hyclate 100 mg tablet RxNorm: 274810 1 Tablet(s) PO BID 09/04/2011 09/10/2011 Inactive doxycycline hyclate 100 mg tablet RxNorm: 224982 1 Tablet(s) PO BID 09/04/2011 09/03/2011 Inactive Xopenex 1.25 mg/3 mL Neb Solution RxNorm: 755637 1 Unit(s) INH Q4 PRN 08/18/2011 12/15/2011 Inactive 1 box Xopenex 1.25 mg/3 mL Neb Solution RxNorm: 477727 1 Milliliter(s) INH Q4 PRN 08/18/2011 08/17/2011 Inactive 1 box Zithromax Z-Preston 250 mg Tab RxNorm: 051993 Tablet(s) PO UD 08/1008/11/2011 Inactive doxycycline hyclate 100 mg Tab RxNorm: 613167 1 Tablet(s) PO BID 08/11/2011 08/11/2011 Inactive prednisone 10 mg Tab RxNorm: 948924 1 Tablet(s) PO BID q a.m. and q NOON x 5 days 08/11/2011 08/10/2011 Inactive prednisone 10 mg Tab RxNorm: 764444 1 Tablet(s) PO BID q a.m. and q NOON x 5 days 08/11/2011 08/15/2011 Inactive Kenalog 40 mg/mL Susp for Injection RxNorm: 4396472 1 Milliliter(s) Inj 08/11/2011 08/11/2011 Inactive doxycycline hyclate 100 mg Tab RxNorm: 666522 1 Tablet(s) PO BID 08/11/2011 08/10/2011 Inactive nystatin 100,000 unit/mL Oral Susp RxNorm: 560202 6 Milliliter(s) PO QID 08/10/2011 08/16/2011 Inactive Jamie 60 mg Tab RxNorm: 442157 1 Tablet(s) PO daily 201101/23/2012 Inactive Jamie 60 mg Tab RxNorm: 271777 1 Tablet(s) PO daily 201107/27/2011 Inactive potassium chloride ER 10 mEq tablet,extended release RxNorm: 206010 1 Tablet(s) PO BID 07/27/2011 08/19/2012 Inactive Synthroid 75 mcg Tab RxNorm: 032358 Tablet(s) PO 07/06/2011 07/29/2012 Inactive one tab wednesday1/2 tab other days potassium chloride ER 10 mEq Tab RxNorm: 290221 1 Tablet(s) PO BID 07/02/2011 07/26/2011 Inactive Lasix 40 mg tablet RxNorm: 541277 1 Tablet(s) PO daily 201112/28/2011 Inactive Nexium 40 mg Capsule, delayed release RxNorm: 314713 1 Capsule(s) PO daily 06/25/2011 11/24/2011 Inactive Lexapro 10 mg Tab RxNorm: 866537 1 Tablet(s) PO daily 201107/14/2011 Inactive Carafate 100 mg/mL Oral Susp RxNorm: 004284 10 Milliliter(s) PO QID 06/25/2011 10/20/2011 Inactive dispense qs x 1 month nystatin 100,000 unit/mL Oral Susp RxNorm: 969402 3 Milliliter(s) PO QID swish, gargle, then swallow four times daily. 06/25/2011 07/14/2011 Inactive dispense qs x 10 days. Mucinex 1,200 mg 12 hr Tab RxNorm: 429021 1 Tablet(s) PO BID 07/21/2011 Inactive Lipitor 40 mg tablet RxNorm: 210676 1 Tablet(s) PO daily 201112/18/2011 Inactive lactobacillus acidophilus Cap RxNorm: 2 Capsule(s) PO BID 08/201107/14/2011 Inactive Mucinex 1,200 mg 12 hr Tab RxNorm: 670269 1 Tablet(s) PO BID 06/21/2011 Inactive lactobacillus acidophilus Cap RxNorm: 1 Capsule(s) PO BID 06/21/2011 Inactive Kenalog 40 mg/mL Susp for Injection RxNorm: 3799281 1 Milliliter(s) Inj 06/15/2011 06/15/2011 Inactive Flagyl 500 mg Tab RxNorm: 506017 1 Tablet(s) PO TID 201107/14/2011 Inactive doxycycline hyclate 100 mg Cap RxNorm: 175709 1 Capsule(s) PO BID 06/15/2011 07/14/2011 Inactive clarithromycin 250 mg Tab RxNorm: 945603 1 Tablet(s) PO BID 07/14/2011 Inactive Xanax 0.25 mg tablet RxNorm: 435207 1 Tablet(s) PO Q4-6H q 4-6 hrs prn 05/27/2011 07/16/2011 Inactive Lasix 40 mg Tab RxNorm : 170730 3 Tablet(s) PO as directed 2 q am and 1 q noon 05/27/2011 07/01/2011 Inactive potassium chloride ER 10 mEq Tab RxNorm: 663123 1 Tablet(s) PO BID 05/27/2011 05/26/2011 Inactive KCL 10 meq RxNorm: 1 PO BID 05/27/201112/2011 Inactive potassium chloride ER 10 mEq Tab RxNorm: 741051 1 Tablet(s) PO BID 05/27/2011 06/25/2011 Inactive Pradaxa 75 mg Cap RxNorm: 6033249 2 Capsule(s) PO daily 09/29/2011 Inactive Biaxin 500 mg Tab RxNorm: 527103 1 Tablet(s) PO BID 201103/16/2011 Inactive Biaxin 500 mg Tab RxNorm: 311735 1 Tablet(s) PO BID 201107/14/2011 Inactive azithromycin 250 mg Tab RxNorm: 183535 1 Tablet(s) PO daily two by mouth daily x 3 days, then daily thereafter 02/06/2011 07/14/2011 Inactive two by mouth daily x 3 days, then daily thereafter until supply is exhausted azithromycin 250 mg Tab RxNorm: 755710 1 Tablet(s) PO daily two by mouth daily x 3 days, then daily thereafter 02/06/2011 02/05/2011 Inactive two by mouth daily x 3 days, then daily thereafter until supply is exhausted azithromycin 250 mg Tab RxNorm: 592182 1 Tablet(s) PO daily two by mouth daily x 3 days, then daily thereafter 02/06/2011 02/05/2011 Inactive two by mouth daily x 3 days, then daily thereafter until supply is exhausted Valturna 300 mg-320 mg Tab RxNorm: 8270456 Tablet(s) PO 201007/14/2011 Inactive TAKE 1 TABLET BY MOUTH EVERY DAY Kenalog 40 mg/mL Susp for Injection RxNorm: 4404289 2 Milliliter(s) Inj 11/20/2010 11/20/2010 Inactive Avelox 400 mg Tab RxNorm: 567780 1 Tablet(s) PO daily 201007/14/2011 Inactive Biaxin 500 mg Tab RxNorm: 296329 1 Tablet(s) PO BID 201011/15/2010 Inactive Pradaxa 150 mg Cap RxNorm: 2983642 1 Capsule(s) PO BID 201007/14/2011 Inactive Zyrtec oral RxNorm: [address]24 oral No Start Date Active Pepcid oral RxNorm: 4278 oral No Start Date Active doxazosin 2 mg tablet RxNorm: 528957 1/2 Tablet(s) PO BID No Start Date 12/08/2015 Inactive Pyridium 200 mg tablet RxNorm: 0590215 1 Tablet(s) PO TID PRN No Start Date 10/28/2016 Inactive ondansetron 4 mg disintegrating tablet RxNorm: 493304 1 Tablet(s) PO Q4 PRN No Start Date 10/21/2017 Inactive Pradaxa 75 mg Cap RxNorm: 3248491 1 Capsule(s) PO daily No Start Date 05/04/2011 Inactive Singulair 10 mg tablet RxNorm: 449907 1 Tablet(s) PO daily No Start Date 07/14/2011 Inactive hydrocodone-acetaminophen 5 mg-325 mg tablet RxNorm: 913973 1 Tablet(s) PO Q6 PRN No Start Date 04/12/2013 Inactive Toprol XL 100 mg 24 hr Tab RxNorm: 332655 1 Tablet(s) PO BID No Start Date 07/14/2011 Inactive Zofran 4 mg tablet RxNorm: 823370 1 Tablet(s) PO Q6 PRN No Start Date 12/06/2012 Inactive Vitamin D2 50,000 unit capsule RxNorm: 934921 1 Capsule(s) PO QW No Start Date 05/15/2014 Inactive prednisone 10 mg tablet RxNorm: 689628 Tablet(s) PO UD No Start Date 06/15/2017 Inactive 6,5,4,3,2,1 Lipitor 40 mg Tab RxNorm: 908855 1 Tablet(s) PO daily No Start Date 06/21/2011 Inactive Trilipix 135 mg Cap RxNorm: 148559 Capsule(s) PO No Start Date 11/26/2010 Inactive Eliquis 5 mg tablet RxNorm: 3114486 1 Tablet(s) PO BID No Start Date 12/08/2015 Inactive KCL 10 meq RxNorm: 1 PO BID No Start Date 05/26/2011 Inactive Diovan 80 mg Tab RxNorm: 936570 1 Tablet(s) PO QHS No Start Date 07/14/2011 Inactive Lipitor 20 mg tablet RxNorm: 443988 1 Tablet(s) PO daily No Start Date 04/13/2013 Inactive Zithromax Z-Preston 250 mg tablet RxNorm: 621255 Tablet(s) PO No Start Date 01/30/2013 Inactive aspirin 81 mg Tab, Delayed Release RxNorm: 078359 1 Tablet(s) PO daily No Start Date 07/14/2011 Inactive prednisone 20 mg Tab RxNorm: 175744 Tablet(s) PO UD 3 tabs x 1 day, then 2 tabs daily x 2 days then 1 tab daily x 1 days, 1/2 daily x 1 day then 1/2 QOD x 2 doses then stop No Start Date 07/14/2011 Inactive Flonase 50 mcg/actuation Nasal [place] RxNorm: 2848929 2 [place] NASAL daily No Start Date 02/17/2016 Inactive hydrocodone 2.5 mg-guaifenesin 200 mg/5 mL syrup RxNorm: 455357 10 Unit Dose PO Q6 PRN No Start Date 04/25/2017 Inactive potassium chloride ER 10 mEq tablet,extended release RxNorm: 919569 1 Tablet(s) PO daily No Start Date 10/14/2016 Inactive Diovan 160 mg Tab RxNorm: 196840 1 Tablet(s) PO QHS No Start Date 12/20/2011 Inactive Lasix 40 mg Tab RxNorm : 986424 3 Tablet(s) PO as directed 2 q am and 1 q noon No Start Date 05/26/2011 Inactive metoprolol succinate ER 50 mg tablet,extended release 24 hr RxNorm: 360156 1 1 / 2 Tablet(s) PO BID No Start Date 2011 Inactive Carafate 1 gram Tab RxNorm: 486864 1 Tablet(s) PO TID No Start Date 07/14/2011 Inactive doxycycline hyclate 100 mg tablet RxNorm: 369393 1 Tablet(s) PO BID No Start Date 08/10/2016 Inactive Zithromax Z-Preston 250 mg Tab RxNorm: 884522 Oral No Start Date 08/10/2011 Inactive prednisone 20 mg Tab RxNorm: 647331 Tablet(s) PO No Start Date 04/06/2011 Inactive 3 tabs x 2 days, 2 tabs x 2 days, 1 tab x 2 days, 1/2 daily x 4 days then stop Bentyl 10 mg Cap RxNorm: 953028 1 Capsule(s) PO BID No Start Date 07/14/2011 Inactive Xarelto 15 mg tablet RxNorm: 9186507 1 Tablet(s) PO daily No Start Date 06/27/2017 Inactive Valturna 300 mg-320 mg Tab RxNorm: 8798954 1 Tablet(s) PO daily No Start Date 01/19/2011 Inactive Vitamin D 1,000 unit Tab RxNorm: 845792 1 Tablet(s) PO daily No Start Date 07/14/2011 Inactive Lexapro 10 mg Tab RxNorm: 264874 1 Tablet(s) PO daily No Start Date 04/06/2011 Inactive Synthroid 75 mcg Tab RxNorm: 313544 Tablet(s) PO No Start Date 07/05/2011 Inactive Protonix 40 mg Tab RxNorm: 015457 1 Tablet(s) PO daily No Start Date 07/14/2011 Inactive ranitidine 150 mg tablet RxNorm: 551874 1 Tablet(s) PO BID No Start Date 04/25/2017 Inactive prednisone 20 mg tablet RxNorm: 656709 Tablet(s) PO 3daily x 2days, then 2daily x2days, then 1daily x2days, then 1/2 daily x 2days then stop No Start Date 12/12/2013 Inactive Nexium 40 mg Cap RxNorm: 916366 1 Capsule(s) PO daily No Start Date 06/03/2011 Inactive Xanax 0.25 mg Tab RxNorm: 113103 1 Tablet(s) PO Q4-6H q 4-6 hrs prn No Start Date 04/06/2011 Inactive Synthroid 50 mcg Tab RxNorm: 185490 1 Tablet(s) PO daily No Start Date 07/14/2011 Inactive Pradaxa 150 mg capsule RxNorm: 0084627 1 Capsule(s) PO BID No Start Date 12/30/2011 Inactive metoprolol tartrate 25 mg tablet RxNorm: 401989 1 Tablet(s) PO TID No Start Date 12/08/2015 Inactive Singulair 5 mg Chewable Tab RxNorm: 319230 1 Tablet(s) PO every other day No Start Date 04/13/2013 Inactive Medication Administered Medication Codes Instructions Start Date Status cyanocobalamin (vit B-12) 1,000 mcg/mL injection solution RxNorm: 927470 Milliliter 09/13/2015 No longer Active Kenalog 40 mg/mL suspension for injection RxNorm: 2262053 Milliliter 03/27/2015 No longer Active Kenalog 40 mg/mL suspension for injection RxNorm: 5098287 Milliliter 12/11/2014 No longer Active Kenalog 40 mg/mL suspension for injection RxNorm: 4734714 1Milliliter 04/14/2013 No longer Active Kenalog 40 mg/mL Susp for Injection RxNorm: 9340311 1Milliliter 04/11/2012 No longer Active Influenza Virus Vaccine 0.5 mL RxNorm: 11/11/2011 No longer Active Pneumovax 23 25 mcg/0.5 mL Injection RxNorm: 096562 Milliliter 11/11/2011 No longer Active Kenalog 40 mg/mL Susp for Injection RxNorm: 4192422 1Milliliter 08/11/2011 No longer Active Kenalog 40 mg/mL Susp for Injection RxNorm: 2755838 1Milliliter 06/15/2011 No longer Active Kenalog 40 mg/mL Susp for Injection RxNorm: 9604246 2Milliliter 11/20/2010 No longer Active Immunizations Vaccine [...] 11/01/2009 completed Assessments Condition Codes Effective Dates Urinary tract infection, site not specified ICD-10: [...] medications ICD-9: V58.69 04/12/2013 ESSENTIAL HYPERTENSION SNOMED: 12645441 ICD-9: 401.9 04/12/2013 ATRIAL FIBRILLATION ICD-9: 427.31 [...] Knee pain, acute ICD-9: 719.46 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 Encounter for general adult medical examination with abnormal findings ICD-9: V70.0 01/21/2011 Actinic keratosis ICD-9: 702.0 2010 DEPRESSIVE DISORDER NEC ICD-9: 311 2010 Reason For Visit Reason For Visit Effective Dates Notes Hospital Follow Up 01/07/2018 vaccination against influenza [...] 10/12/2017 Electrolytes Ord62 ANION GAP 16 10/12/2017 Comp Metabolic Gov330 NA 140 mEq/L 03/15/2017 Comp Metabolic Fps737 K 3.6 mEq/L 03/15/2017 Comp Metabolic Avg400 CL 104 mEq/L 03/15/2017 Comp Metabolic Xzw495 CO2 27.0 mEq/L 03/15/2017 Comp Metabolic Wej196 ANION GAP 13 03/15/2017 Comp Metabolic Rfg098 GLUCOSE 93 mg/dL 03/15/2017 Comp Metabolic Nnt189 Creat 0.9 mg/dL 03/15/2017 Comp Metabolic Btm095 eGFR 68 ml/min/1.73m2 03/15/2017 Comp Metabolic Jdy610 BUN 10 mg/dL 03/15/2017 Comp Metabolic Lcc859 B/C Ratio 11.4 Ratio 03/15/2017 Comp Metabolic Ksm421 CALCIUM 9.4 mg/dL 03/15/2017 Comp Metabolic Boo607 ALK PHOS 84 U/L 03/15/2017 Comp Metabolic Lsz741 AST(SGOT) 14 U/L 03/15/2017 Comp Metabolic Xby065 ALT(SGPT) 15 U/L 03/15/2017 Comp Metabolic Suq052 BILI T 0.5 mg/dL 03/15/2017 Comp Metabolic Szh788 ALBUMIN 3.6 g/dL 03/15/2017 Comp Metabolic Ylf586 TPRO 6.0 g/dL 03/15/2017 Comp Metabolic Wls220 GLOB 2.4 g/dL 03/15/2017 Comp Metabolic Czv868 A/G Ratio 1.5 Ratio 03/15/2017 Comp Metabolic Xns473 Osmo 278 mOsmo 03/15/2017 Lipid Ord30 CHOL 160 mg/dL 03/15/2017 Lipid Ord30 HDL 46.0 mg/dl 03/15/2017 Lipid Ord30 TRIG 73 mg/dL 03/15/2017 Lipid Ord30 LDL 99 mg/dL 03/15/2017 Lipid Ord30 C/HDL 3.5 Ratio 03/15/2017 Magnesium Ord90 Mag 2.0 mg/dL 03/15/2017 [...] 30.4 pg 03/15/2017 Cbc With Differential Ord2 Terry% 6.7 % 03/15/2017 Cbc With Differential Ord2 [...] 2.24 K/ul 03/15/2017 Cbc With Differential Ord2 Terry ABS# 0.5 K/ul 03/15/2017 Cbc With Differential [...] 01/15/2017 Metabolic Ord15 CALCIUM 9.4 mg/dL 01/15/2017 Cbc With Differential Ord2 WBC 6.36 K/ul [...] 30.3 pg 12/31/2016 Cbc With Differential Ord2 Terry% 11.2 % 12/31/2016 Cbc With Differential Ord2 MCHC 32.6 pg 12/31/2016 Cbc With Differential Ord2 Eos% 1.9 % 12/31/2016 Cbc With Differential Ord2 Baso% 0.9 % 12/31/2016 Cbc With Differential Ord2 PLT 199 K/ul 12/31/2016 Cbc With Differential Ord2 RDW 13.3 % 12/31/2016 Cbc With Differential Ord2 Neut ABS# 3.58 K/ul 12/31/2016 Cbc With Differential Ord2 Lymph ABS# 1.89 K/ul 12/31/2016 Cbc With Differential Ord2 Terry ABS# 0.7 K/ul 12/31/2016 Cbc With Differential Ord2 Eos ABS# 0.1 K/ul 12/31/2016 Cbc With Differential Ord2 Baso ABS# 0.1 K/ul 12/31/2016 Comp Metabolic Zxs130 NA 137 mEq/L 12/31/2016 Comp Metabolic Csb978 K 3.2 mEq/L 12/31/2016 Comp Metabolic Siz312 CL 95 mEq/L 12/31/2016 Comp Metabolic Cgw890 CO2 30.0 mEq/L 12/31/2016 Comp Metabolic Qgc257 ANION GAP 15 12/31/2016 Comp Metabolic Jlo239 GLUCOSE 111 mg/dL 12/31/2016 Comp Metabolic Oic955 Creat 1.3 mg/dL 12/31/2016 Comp Metabolic Kbc228 eGFR 45 ml/min/1.73m2 12/31/2016 Comp Metabolic Smx302 BUN 14 mg/dL 12/31/2016 Comp Metabolic Npk813 B/C Ratio 11.1 Ratio 12/31/2016 Comp Metabolic Iiu882 CALCIUM 10.0 mg/dL 12/31/2016 Comp Metabolic Khl851 ALK PHOS 61 U/L 12/31/2016 Comp Metabolic Pvz205 AST(SGOT) 14 U/L 12/31/2016 Comp Metabolic Ifp118 ALT(SGPT) 13 U/L 12/31/2016 Comp Metabolic Jyb678 BILI T 0.9 mg/dL 12/31/2016 Comp Metabolic Yji281 ALBUMIN 3.8 g/dL 12/31/2016 Comp Metabolic Wht402 TPRO 6.7 g/dL 12/31/2016 Comp Metabolic Hem419 GLOB 2.9 g/dL 12/31/2016 Comp Metabolic Kyn542 A/G Ratio 1.3 Ratio 12/31/2016 Comp Metabolic Ikp619 Osmo 275 mOsmo 12/31/2016 Urine Culture Ucult Complete >100,000 col/ml aerobic growth sent to ref lab 10/30/2016 Lipid Ord30 CHOL 209 mg/dL 09/15/2016 Lipid Ord30 HDL 54.0 mg/dl 09/15/2016 Lipid Ord30 TRIG 104 mg/dL 09/15/2016 Lipid Ord30 LDL 134 mg/dL 09/15/2016 Lipid Ord30 C/HDL 3.9 Ratio 09/15/2016 Comp Metabolic Jpm872 NA 139 mEq/L 09/15/2016 Comp Metabolic Yhk405 K 4.0 mEq/L 09/15/2016 Comp Metabolic Orr564 CL 104 mEq/L 09/15/2016 Comp Metabolic Xeg707 CO2 27.0 mEq/L 09/15/2016 Comp Metabolic Sad446 ANION GAP 12 09/15/2016 Comp Metabolic Hlh847 GLUCOSE 105 mg/dL 09/15/2016 Comp Metabolic Qkr764 Creat 0.9 mg/dL 09/15/2016 Comp Metabolic Rav592 eGFR 67 ml/min/1.73m2 09/15/2016 Comp Metabolic Rdz233 BUN 14 mg/dL 09/15/2016 Comp Metabolic Orj680 B/C Ratio 15.7 Ratio 09/15/2016 Comp Metabolic Qwn933 CALCIUM 9.0 mg/dL 09/15/2016 Comp Metabolic Rsj341 ALK PHOS 85 U/L 09/15/2016 Comp Metabolic Mbx015 AST(SGOT) 12 U/L 09/15/2016 Comp Metabolic Dii553 ALT(SGPT) 11 U/L 09/15/2016 Comp Metabolic Kic460 BILI T 0.5 mg/dL 09/15/2016 Comp Metabolic Snm097 ALBUMIN 3.4 g/dL 09/15/2016 Comp Metabolic Qfr339 TPRO 5.8 g/dL 09/15/[address] GLOB 2.4 g/dL 09/15/2016 Comp Metabolic Unh268 A/G Ratio 1.4 Ratio 09/15/2016 Comp Metabolic Unc016 Osmo 278 mOsmo 09/15/2016 Tsh Ord6 hTSH II 2.88 uIU/mL 09/15/2016 Magnesium Ord90 Mag 2.0 mg/dL 09/15/2016 Vitamin D 25 Oh Fxy0115 VITAMIN D, 25 HYDROXY 25.95 ng/mL Metabolic Ord15 NA 139 mEq/L 01/13/2016 Metabolic [...] 01/13/2016 Metabolic Ord15 CALCIUM 9.2 mg/dL 01/13/2016 Magnesium Ord90 Mag 2.2 mg/dL 01/13/2016 Vitamin D 25 Oh [id number] VITAMIN D, 25 HYDROXY 38.03 ng/mL Free T4 Eib431 FREE T4 1.04 ng/dL 11/28/2015 Cbc With [...] 30.9 pg 11/28/2015 Cbc With Differential Ord2 Terry% 6.7 % 11/28/2015 Cbc With Differential Ord2 [...] 2.19 K/ul 11/28/2015 Cbc With Differential Ord2 Terry ABS# 0.6 K/ul 11/28/2015 Cbc With Differential Ord2 Eos ABS# 0.1 K/ul 11/28/2015 Cbc With Differential Ord2 Baso ABS# 0.1 K/ul 11/28/2015 Tsh Ord6 hTSH II 1.98 uIU/mL 11/28/2015 Comp Metabolic Ezi900 NA 139 mEq/L 11/28/2015 Comp Metabolic Kot297 K 4.0 mEq/L 11/28/2015 Comp Metabolic Ybt405 CL 105 mEq/L 11/28/2015 Comp Metabolic Isz950 CO2 25.0 mEq/L 11/28/2015 Comp Metabolic Pjr492 ANION GAP 13 11/28/2015 Comp Metabolic Dee891 GLUCOSE 100 mg/dL 11/28/2015 Comp Metabolic Npv012 Creat 1.1 mg/dL 11/28/2015 Comp Metabolic Idr459 eGFR 55 ml/min/1.73m2 11/28/2015 Comp Metabolic Jze702 BUN 13 mg/dL 11/28/2015 Comp Metabolic Yox674 B/C Ratio 12.3 Ratio 11/28/2015 Comp Metabolic Cli006 CALCIUM 9.2 mg/dL 11/28/2015 Comp Metabolic Tix415 ALK PHOS 85 U/L 11/28/2015 Comp Metabolic Jbj743 AST(SGOT) 15 U/L 11/28/2015 Comp Metabolic Prx329 ALT(SGPT) 15 U/L 11/28/2015 Comp Metabolic Brd416 BILI T 0.5 mg/dL 11/28/2015 Comp Metabolic Qzf847 ALBUMIN 3.7 g/dL 11/28/2015 Comp Metabolic Ycf707 TPRO 6.4 g/dL 11/28/2015 Comp Metabolic Sxo197 GLOB 2.7 g/dL 11/28/2015 Comp Metabolic Ioc499 A/G Ratio 1.4 Ratio 11/28/2015 Comp Metabolic Njd678 Osmo 278 mOsmo 11/28/2015 Comp Metabolic Kab581 NA 135 mEq/L 10/15/2015 Comp Metabolic Oyr775 K 3.5 mEq/L 10/15/2015 Comp Metabolic Ayv339 CL 100 mEq/L 10/15/2015 Comp Metabolic Vcw706 CO2 29.0 mEq/L 10/15/2015 Comp Metabolic Gyp506 ANION GAP 10 10/15/2015 Comp Metabolic Lxn696 GLUCOSE 88 mg/dL 10/15/2015 Comp Metabolic Rai973 Creat 0.9 mg/dL 10/15/2015 Comp Metabolic Quc160 eGFR 67 ml/min/1.73m2 10/15/2015 Comp Metabolic Jqj670 BUN 16 mg/dL 10/15/2015 Comp Metabolic Awe287 B/C Ratio 17.8 Ratio 10/15/2015 Comp Metabolic Xnn522 CALCIUM 9.4 mg/dL 10/15/2015 Comp Metabolic Fxa396 ALK PHOS 96 U/L 10/15/2015 Comp Metabolic Hjj013 AST(SGOT) 15 U/L 10/15/2015 Comp Metabolic Dql351 ALT(SGPT) -125 U/L 10/15/2015 Comp Metabolic Npg436 BILI T 0.4 mg/dL 10/15/2015 Comp Metabolic Kak234 ALBUMIN 4.2 g/dL 10/15/2015 Comp Metabolic Dnf470 TPRO 7.2 g/dL 10/15/2015 Comp Metabolic Qyk028 GLOB 3.1 g/dL 10/15/2015 Comp Metabolic Cff735 A/G Ratio 1.4 Ratio 10/15/2015 Comp Metabolic Cwv051 Osmo 271 mOsmo 10/15/2015 Comp Metabolic Dzw199 NA 135 mEq/L 10/15/2015 Comp Metabolic Rdn214 K 3.5 mEq/L 10/15/2015 Comp Metabolic Dno297 CL 100 mEq/L 10/15/2015 Comp Metabolic Blh602 CO2 29.0 mEq/L 10/15/2015 Comp Metabolic Hcp147 ANION GAP 10 10/15/2015 Comp Metabolic Sne157 GLUCOSE 88 mg/dL 10/15/2015 Comp Metabolic Qqx245 Creat 0.9 mg/dL 10/15/2015 Comp Metabolic Ejv550 eGFR 67 ml/min/1.73m2 10/15/2015 Comp Metabolic Xrm407 BUN 16 mg/dL 10/15/2015 Comp Metabolic Rjw636 B/C Ratio 17.8 Ratio 10/15/2015 Comp Metabolic Dxd862 CALCIUM 9.4 mg/dL 10/15/2015 Comp Metabolic Rll193 ALK PHOS 96 U/L 10/15/2015 Comp Metabolic Lom664 AST(SGOT) 15 U/L 10/15/2015 Comp Metabolic Xrl039 ALT(SGPT) 14 U/L 10/15/2015 Comp Metabolic Tfp625 BILI T 0.4 mg/dL 10/15/2015 Comp Metabolic Cpl130 ALBUMIN 4.2 g/dL 10/15/2015 Comp Metabolic Onz043 TPRO 7.2 g/dL 10/15/2015 Comp Metabolic Qzb011 GLOB 3.1 g/dL 10/15/2015 Comp Metabolic Ans269 A/G Ratio 1.4 Ratio 10/15/2015 Comp Metabolic Vab438 Osmo 271 mOsmo 10/15/2015 Magnesium Ord90 Mag 2.2 mg/dL 10/15/2015 Magnesium Ord90 Mag 1.9 mg/dL 09/05/2015 Comp Metabolic Lae336 NA 138 mEq/L 09/05/2015 Comp Metabolic Wkb003 K 3.7 mEq/L 09/05/2015 Comp Metabolic Pdc450 CL 99 mEq/L 09/05/2015 Comp Metabolic Gqa679 CO2 30.0 mEq/L 09/05/2015 Comp Metabolic Jxk524 ANION GAP 13 09/05/2015 Comp Metabolic Wna136 GLUCOSE 97 mg/dL 09/05/2015 Comp Metabolic Qax275 Creat 1.1 mg/dL 09/05/2015 Comp Metabolic Utl504 eGFR 54 ml/min/1.73m2 09/05/2015 Comp Metabolic Sdu642 BUN 18 mg/dL 09/05/2015 Comp Metabolic Qwh232 B/C Ratio 16.7 Ratio 09/05/2015 Comp Metabolic Kio413 CALCIUM 9.6 mg/dL 09/05/2015 Comp Metabolic Stc860 ALK PHOS 96 U/L 09/05/2015 Comp Metabolic Cox981 AST(SGOT) 15 U/L 09/05/2015 Comp Metabolic Gaf968 ALT(SGPT) 14 U/L 09/05/2015 Comp Metabolic Kmx762 BILI T 0.5 mg/dL 09/05/2015 Comp Metabolic Xew783 ALBUMIN 4.1 g/dL 09/05/2015 Comp Metabolic Zxc382 TPRO 7.0 g/dL 09/05/2015 Comp Metabolic Smh254 GLOB 3.0 g/dL 09/05/2015 Comp Metabolic Ywh414 A/G Ratio 1.4 Ratio 09/05/2015 Comp Metabolic Dpy865 Osmo 277 mOsmo 09/05/2015 Vitamin D 25 Oh Cdq7351 VITAMIN D, 25 HYDROXY 22.39 ng/mL Comp Metabolic Hhw483 NA 135 mEq/L 06/11/2015 Comp Metabolic Brd655 K 4.3 mEq/L 06/11/2015 Comp Metabolic Sjw333 CL 103 mEq/L 06/11/2015 Comp Metabolic Uzk879 CO2 25.0 mEq/L 06/11/2015 Comp Metabolic Ebp218 ANION GAP 11 06/11/2015 Comp Metabolic Lvg816 GLUCOSE 75 mg/dL 06/11/2015 Comp Metabolic Efg420 Creat 0.9 mg/dL 06/11/2015 Comp Metabolic Wlp794 eGFR 69 ml/min/1.73m2 06/11/2015 Comp Metabolic Qln694 BUN 22 mg/dL 06/11/2015 Comp Metabolic Hdv445 B/C Ratio 25.3 Ratio 06/11/2015 Comp Metabolic Elr354 CALCIUM 9.2 mg/dL 06/11/2015 Comp Metabolic Bgz963 ALK PHOS 88 U/L 06/11/2015 Comp Metabolic Rcd753 AST(SGOT) 13 U/L 06/11/2015 Comp Metabolic Aje995 ALT(SGPT) 15 U/L 06/11/2015 Comp Metabolic Tio069 BILI T 0.4 mg/dL 06/11/2015 Comp Metabolic Qcs179 ALBUMIN 3.7 g/dL 06/11/2015 Comp Metabolic Pgb586 TPRO 6.6 g/dL 06/11/2015 Comp Metabolic Vug331 GLOB 2.9 g/dL 06/11/2015 Comp Metabolic Nlk921 A/G Ratio 1.3 Ratio 06/11/2015 Comp Metabolic Vyl460 Osmo 272 mOsmo 06/11/2015 Free T4 Nis391 FREE T4 0.95 ng/dL 06/11/2015 Magnesium Ord90 Mag 2.0 mg/dL 06/11/2015 Tsh Ord6 hTSH II 3.52 uIU/mL 06/11/2015 Cbc With Differential Ord2 WBC 11.66 K/ul 06/11/2015 Cbc With Differential Ord2 RBC 4.34 M/ul 06/11/2015 Cbc With Differential Ord2 HGB 13.6 g/dl 06/11/2015 Cbc With Differential Ord2 HCT 41.5 % 06/11/2015 Cbc With Differential Ord2 Neut% 69.6 % 06/11/2015 Cbc With Differential Ord2 MCV 95.6 fl 06/11/2015 Cbc With Differential Ord2 Lymph% 22.0 % 06/11/2015 Cbc With Differential Ord2 Terry% 7.4 % 06/11/2015 Cbc With Differential Ord2 MCH 31.3 pg 06/11/2015 Cbc With Differential Ord2 MCHC 32.8 pg 06/11/2015 Cbc With Differential Ord2 Eos% 0.7 % 06/11/2015 Cbc With Differential Ord2 Baso% 0.3 % 06/11/2015 Cbc With Differential Ord2 PLT 224 K/ul 06/11/2015 Cbc With Differential Ord2 Neut ABS# 8.11 K/ul 06/11/2015 Cbc With Differential Ord2 RDW 12.8 % 06/11/2015 Cbc With Differential Ord2 Lymph ABS# 2.57 K/ul 06/11/2015 Cbc With Differential Ord2 Terry ABS# 0.9 K/ul 06/11/2015 Cbc With Differential [...] 01/24/2015 Metabolic Ord15 CALCIUM 9.4 mg/dL 01/24/2015 %Hba1C Lyr862 % HbA1c 27161-2 5.7 % 11/16/2014 %Hba1C Gtv361 Gluc Ave 117 mg/dL 11/16/2014 Comp Metabolic Hws782 NA 138 mEq/L 11/16/2014 Comp Metabolic Uhq215 K 4.0 mEq/L 11/16/2014 Comp Metabolic Vsu752 CL 104 mEq/L 11/16/2014 Comp Metabolic Oyh452 CO2 27.0 mEq/L 11/16/2014 Comp Metabolic Qbc919 ANION GAP 11 11/16/2014 Comp Metabolic Ncu012 GLUCOSE 94 mg/dL 11/16/2014 Comp Metabolic Mlx483 Creat 0.9 mg/dL 11/16/2014 Comp Metabolic Wsv745 eGFR 64 ml/min/1.73m2 11/16/2014 Comp Metabolic Uif724 BUN 12 mg/dL 11/16/2014 Comp Metabolic Hic219 B/C Ratio 12.9 Ratio 11/16/2014 Comp Metabolic Ghh773 CALCIUM 9.4 mg/dL 11/16/2014 Comp Metabolic Nxj465 ALK PHOS 88 U/L 11/16/2014 Comp Metabolic Kvq352 AST(SGOT) 14 U/L 11/16/2014 Comp Metabolic Suz932 ALT(SGPT) 12 U/L 11/16/2014 Comp Metabolic Nov774 BILI T 0.6 mg/dL 11/16/2014 Comp Metabolic Hsz360 ALBUMIN 3.7 g/dL 11/16/2014 Comp Metabolic Jmc822 TPRO 6.3 g/dL 11/16/2014 Comp Metabolic Fmz204 GLOB 2.6 g/dL 11/16/2014 Comp Metabolic Gzq337 A/G Ratio 1.4 Ratio 11/16/2014 Comp Metabolic Pok809 Osmo 275 mOsmo 11/16/2014 Lipid Ord30 CHOL 206 mg/dL 11/16/2014 Lipid Ord30 HDL 49.0 mg/dl 11/16/2014 Lipid Ord30 TRIG 104 mg/dL 11/16/2014 Lipid Ord30 LDL 136 mg/dL 11/16/2014 Lipid Ord30 C/HDL 4.2 Ratio 11/16/2014 Tsh Ord6 hTSH II 2.05 uIU/mL 11/16/2014 Cbc With Differential Ord2 WBC 8.5 K/uL [...] 13.8 % 11/16/2014 Vitamin D 25 Oh Ttg1747 VITAMIN D, 25 HYDROXY 22.85 ng/mL GFR CALC 2826703 GFR AA >60 ML/MIN 04/12/2013 GFR CALC 6013775 GFR NON-AA >60 ML/MIN 04/12/2013 TSH 4300272 TSH 2.194 uIU/ML 04/12/2013 VIT B 12 3585117 VIT B 12 415 PG/ML 04/12/2013 CBC 1734468 WBC 8.8 10e9/L 04/12/2013 CBC 0480480 RBC 4.59 10e12/L 04/12/2013 CBC 3882529 HGB 14.3 g/dL 04/12/2013 CBC 1407923 HCT DET 42.4 % 04/12/2013 CBC 5377274 MCV 92.4 fL 04/12/2013 CBC 1396095 MCH 31.2 pg 04/12/2013 CBC 6200326 MCHC 33.7 g/dL 04/12/2013 CBC 8918436 PLT 213 10e9/L 04/12/2013 CBC 7887274 MPV 12.8 fL 04/12/2013 CBC 2077351 LULU % 61.8 % 04/12/2013 CBC 1341718 LY % 29.2 % 04/12/2013 CBC 8423945 MON % 7.2 % 04/12/2013 CBC 4877952 EOS % 1.3 % 04/12/2013 CBC 0535586 BASO % 0.5 % 04/12/2013 CBC 5611119 RDW 12.6 % 04/12/2013 CBC 9278198 ABS LULU 5.44 10e9/L 04/12/2013 CBC 6290184 ABS LYMPH 2.57 10e9/L 04/12/2013 CBC 9095158 ABS MONO 0.63 10e9/L 04/12/2013 CBC 3699134 ABS EOS 0.11 10e9/L 04/12/2013 CBC 4264192 ABS BASO 0.04 10e9/L 04/12/2013 CBC 8988879 RDW-SD 41.3 fL 04/12/2013 FREE T4 6287003 FREE T4 1.09 NG/DL 04/12/2013 A1C HPLC 3931306 A1C HPLC 58974-3 5.4 % 04/12/2013 CHEM 14 6639040 AST 12 U/L 04/12/2013 CHEM 14 7785748 ALT 11 IU/L 04/12/2013 CHEM 14 4428332 BUN 14 MG/DL 04/12/2013 CHEM 14 8870806 ALBUMIN 4.1 GM/DL 04/12/2013 CHEM 14 1528524 CHLORIDE 105 MMOL/L 04/12/2013 CHEM 14 0668490 BILI TOT 0.6 MG/DL 04/12/2013 CHEM 14 4247544 ALK PHOS 81 U/L 04/12/2013 CHEM 14 6445548 SODIUM 138 MMOL/L 04/12/2013 CHEM 14 3138539 CREATININE 0.86 MG/DL 04/12/2013 CHEM 14 7873247 CALCIUM 9.8 MG/DL 04/12/2013 CHEM 14 5138703 POTASSIUM 4.1 MMOL/L 04/12/2013 CHEM 14 3660073 PROT TOT 6.6 GM/DL 04/12/2013 CHEM 14 1341156 GLUCOSE 112 MG/DL 04/12/2013 CHEM 14 7625531 BICARB 27 MMOL/L 04/12/2013 CHEM 14 7409849 ANION GAP 6 MEQ/L 04/12/2013 LIPID GRP HDL TEST 55 MG/DL 04/12/2013 LIPID GRP TRIG 107 MG/DL 04/12/2013 LIPID GRP TEST LDL 193 MG/DL 04/12/2013 LIPID GRP CHOL 269 MG/DL 04/12/2013 LIPID GRP RCHOL/HDL 4.89 RATIO 04/12/2013 NICOT QN S 7042986 NICOTIN S < 2.0 NG/ML 03/07/2012 NICOT QN S 3589971 XCOTININ S < 2.0 NG/ML 03/07/2012 CBC 4054509 WBC 8.1 10e9/L 03/02/2012 CBC 8573255 RBC 4.44 10e12/L 03/02/2012 CBC 7062856 HGB 13.8 g/dL 03/02/2012 CBC 5458954 HCT DET 41.3 % 03/02/2012 CBC 0714755 MCV 93.0 fL 03/02/2012 CBC 5975834 MCH 31.1 pg 03/02/2012 CBC 9720798 MCHC 33.4 g/dL 03/02/2012 CBC 3531143 PLT 188 10e9/L 03/02/2012 CBC 8940058 MPV 14.3 fL 03/02/2012 CBC 1653587 LULU % 61.5 % 03/02/2012 CBC 4236023 LY % 28.8 % 03/02/2012 CBC 0469766 MON % 8.0 % 03/02/2012 CBC 5919915 EOS % 1.1 % 03/02/2012 CBC 5471043 BASO % 0.6 % 03/02/2012 CBC 3795794 RDW 14.0 % 03/02/2012 CBC 8650818 ABS LULU 4.98 10e9/L 03/02/2012 CBC 4650339 ABS LYMPH 2.33 10e9/L 03/02/2012 CBC 7922915 ABS MONO 0.65 10e9/L 03/02/2012 CBC 3881071 ABS EOS 0.09 10e9/L 03/02/2012 CBC 8055468 ABS BASO 0.05 10e9/L 03/02/2012 CBC 6063805 RDW-SD 46.3 fL 03/02/2012 LIPID GRP HDL TEST 37 MG/DL 03/02/2012 LIPID GRP TRIG 136 MG/DL 03/02/2012 LIPID GRP TEST LDL 106 MG/DL 03/02/2012 LIPID GRP CHOL 170 MG/DL 03/02/2012 LIPID GRP RCHOL/HDL 4.59 RATIO 03/02/2012 GFR CALC 5953163 GFR AA >60 ML/MIN 03/02/2012 GFR CALC 2429833 GFR NON-AA >60 ML/MIN 03/02/2012 TSH 2538365 TSH 2.320 uIU/ML 03/02/2012 A1C HPLC 9334946 A1C HPLC 87992-7 5.4 % 03/02/2012 CHEM 14 5663547 AST 17 U/L 03/02/2012 CHEM 14 8043144 ALT 22 IU/L 03/02/2012 CHEM 14 5814112 BUN 15 MG/DL 03/02/2012 CHEM 14 0672598 ALBUMIN 4.0 GM/DL 03/02/2012 CHEM 14 8635766 CHLORIDE 107 MMOL/L 03/02/2012 CHEM 14 2862690 BILI TOT 0.4 MG/DL 03/02/2012 CHEM 14 8766828 ALK PHOS 83 U/L 03/02/2012 CHEM 14 6831823 SODIUM 141 MMOL/L 03/02/2012 CHEM 14 5910803 CREATININE 0.86 MG/DL 03/02/2012 CHEM 14 6085698 CALCIUM 9.5 MG/DL 03/02/2012 CHEM 14 1915250 POTASSIUM 4.0 MMOL/L 03/02/2012 CHEM 14 2898237 PROT TOT 6.6 GM/DL 03/02/2012 CHEM 14 1411336 GLUCOSE 102 MG/DL 03/02/2012 CHEM 14 9866151 BICARB 28 MMOL/L 03/02/2012 CHEM 14 2304200 ANION GAP 6 MEQ/L 03/02/2012 FREE T4 0967956 FREE T4 1.09 NG/DL 03/02/2012 GFR CALC 8751270 GFR AA >60 ML/MIN 07/03/2011 GFR CALC 9821513 GFR NON-AA 54.0L ML/MIN 07/03/2011 CHEM 14 1382217 AST 15 U/L 07/03/2011 CHEM 14 7882007 ALT 30 IU/L 07/03/2011 CHEM 14 9568795 BUN 19 MG/DL 07/03/2011 CHEM 14 0015030 ALBUMIN 4.2 GM/DL 07/03/2011 CHEM 14 8371343 CHLORIDE 100 MMOL/L 07/03/2011 CHEM 14 1774398 BILI TOT 0.8 MG/DL 07/03/2011 CHEM 14 7738472 ALK PHOS 74 U/L 07/03/2011 CHEM 14 6663468 SODIUM 137 MMOL/L 07/03/2011 CHEM 14 8053068 CREATININE 1.03 MG/DL 07/03/2011 CHEM 14 8932491 CALCIUM 9.6 MG/DL 07/03/2011 CHEM 14 2196505 POTASSIUM 4.4 MMOL/L 07/03/2011 CHEM 14 6591788 PROT TOT 6.7 GM/DL 07/03/2011 CHEM 14 7273566 GLUCOSE 106 MG/DL 07/03/2011 CHEM 14 8742093 BICARB 28 MMOL/L 07/03/2011 CHEM 14 3248215 ANION GAP 9 MEQ/L 07/03/2011 URINALYSIS NONAUTO W/O SCOPE 09770 Specific [place] 1.010 DateTime(Free Text in Aprima) URINALYSIS NONAUTO W/O SCOPE 03593 PH 5 DateTime(Free Text in Aprima) URINALYSIS NONAUTO W/O SCOPE 40534 GLUCOSE neg DateTime( Free Text in Apr[employer]) URINALYSIS NONAUTO W/O SCOPE 16269 Protein neg DateTime( Free Text in Aprima) URINALYSIS NONAUTO W/O SCOPE 73997 Blood 1+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 today in the office . Sinusitis - Pt has acute infection [...] or other concerns. Patient verbalized understanding. . Cellulitis of lip lesion-Dr. Do in to evaluate patient-discussed natural and expected course of this diagnosis and to alert me if symptoms do not follow expected course, or if any worse. RX sent to patient' s pharmacy. REPEAT MAMMOGRAM RECOMMEND SHINGLES VACCINE VITAMIN D [...] provided and instructed on one tab daily. Increase singulair to 1/2 tab daily. Start [...] use compression socks from toes to thighs. 50,000 units weekly x 12 weeks vitamin [...] office or get her labs done at [facility] this week. She reports that her insurance company has not returned her phone calls despite her leaving multiple messages. I have obtained the phone number from the pt and will call tomorrow. . Culture urine . 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 Vernon for further recommendations. Hematuria-culture urine . Kenalog injection Move mucinex to evening dosing. Chronic sinusitis- [...] activy after improving from her illness. . Allergies - recommended pt to use [...] KENALOG 80MG TODAY IN THE OFFICE . Trigger Points - Injected trigger points today, pt given post-injection instructions, signs and symptoms for which to call the office. Pt to use heat to the muscles today, and take an anti-inflammatory today unless otherwise contraindicated by renal function or other disease process. DX sinusitis - discussed expected course with [...] of nasonex and jamie provided as well. . Hypertension - well controlled - continue [...] to start IV abx and breathing treatments. continue daily dressing change . Skin tear-dorsum of left hand-wound cleansed today in the office-medihoney applied and covered with non stick telfa and wrap with gauze. Will continue daily dressing changes. Monitor for s/s of infection. . 1800 CALORIE RESTRICTION EXERCISE BAND - use for 10 min on upper body and 5 min on lower body. Bring in the diet log from this past. month Continue with ibuprofen for the knee pain. HTN - controlled - no change in medications. Restart pradaxa as instructed twice daily. Return [...] daily as had been initiall instructed. . Olioh-umholbz-qsqz lasix 40mg daily x 3 days with potassium 20mEq BID x 3 days, then resume daily PRN schedule. If symptoms do not improve, we will obtain a chest xray. Recommend screening mammogram . PT GIVEN ROUTINE ALLERGY SHOTS FOR DESENSITIZATION . Atrial Fibrillation - pt on chronic [...] being re-exposed to the environment of the snf. Return Wednesday morning for fasting labs. Biaxin prescription sent to [facility]-it is twice daily x 10 days. Take [...] by Dr. Cueto. 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 Sinusitis - Pt has acute infection - pain in face, maxillary region, Pt informed to use decongestant, RX given to patient, sinus rinses also recommended. Call if symptoms do not show improvement. Kenalog injection today in the office.
--- OUTSIDE RECORDS SUMMARY | 2018-06-03 08:07 | XMS REPORT | CCD ---
Author Author [facility] Address [address] [place] [address] Phone Care Team Providers Care Home Theater Experience Expert Name Role Phone PP Unavailable CCM Unavailable Summary Purpose Interface Exchange Insurance Providers Payer name Policy type / Coverage type Covered libertarian ID Effective Begin Date Effective End Date WPS Medicare Part B [id number] 2017 Unknown [facility] [id number] Unknown Family history Father Diagnosis Age At Onset No Family Disease Entered N/A Runs in the family Diagnosis Age At Onset Diabetes Unknown Mother Diagnosis Age At Onset No Family Disease Entered N/A Social History Social History Element Codes Description Effective Dates Employment Unknown 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 03/17/2011 Active Obesity ICD-9: 278.00 [...] Start Date Stop Date Status Fill Instructions Xanax 0.25 mg tablet RxNorm: 876935 Tablet(s) PO TAKE ONE TABLET BY MOUTH EVERY 4 TO 6 HOURS NEEDED 03/09/20182018 Active potassium chloride ER 10 mEq tablet,extended release RxNorm: 017743 TAKE 2 CAPSULES BY MOUTH TWICE DAILY 02/28/2018 No Stop Date Active Levaquin 500 mg tablet RxNorm: 916067 1 Tablet(s) PO daily 12/201701/31/2018 Inactive Macrobid 100 mg capsule RxNorm: 257868 1 Capsule(s) PO BID 01/06/2018 Inactive Macrobid 100 mg capsule RxNorm: 571111 1 Capsule(s) PO BID 12/30/2017 Inactive ondansetron 4 mg disintegrating tablet RxNorm: 028020 1 Tablet(s) PO Q4 PRN 10/22/2017 No Stop Date Active Xanax 0.25 mg tablet RxNorm: 428125 Tablet(s) PO TAKE ONE TABLET BY MOUTH EVERY 4 TO 6 HOURS NEEDED 07/29/20172017 Inactive Levaquin 500 mg tablet RxNorm: 301124 1 Tablet(s) PO daily 07/14/2017 Inactive Levaquin 500 mg tablet RxNorm: 577287 1 Tablet(s) PO daily 07/21/2017 Inactive Xarelto 20 mg tablet RxNorm: 9755279 1 Tablet(s) PO daily 06/2812/24/2017 Inactive Xarelto 20 mg tablet RxNorm: 4097220 1 Tablet(s) PO daily 06/2806/27/2017 Inactive potassium chloride ER 10 mEq tablet,extended release RxNorm: 782944 2 Capsule(s) PO BID 06/28/2017 12/24/2017 Inactive potassium chloride ER 10 mEq tablet,extended release RxNorm: 942368 2 Capsule(s) PO BID 06/28/2017 06/27/2017 Inactive prednisone 10 mg tablet RxNorm: 713673 Tablet(s) PO UD 2017 No Stop Date Active 6,5,4,3,2,1 Vitamin D2 50,000 unit capsule RxNorm: 016580 1 Capsule(s) PO QW 04/26/2017 07/24/2017 Inactive Lexapro 10 mg tablet RxNorm: 936055 1 Tablet(s) PO QHS 201601/11/2017 Inactive Lexapro 10 mg tablet RxNorm: 070399 1 Tablet(s) PO QHS 201604/25/2017 Inactive famotidine 20 mg tablet RxNorm: 610703 1 Tablet(s) PO BID 01/0601/05/2017 Inactive famotidine 20 mg tablet RxNorm: 106224 1 Tablet(s) PO BID 01/0604/25/2017 Inactive doxazosin 2 mg tablet RxNorm: 329960 TAKE ONE-HALF TABLET BY MOUTH TWICE DAILY 12/17/2016 04/25/2017 Inactive Xanax 0.25 mg tablet RxNorm: 117108 Tablet(s) PO TAKE ONE TABLET BY MOUTH EVERY 4 TO 6 HOURS NEEDED 11/12/20162016 Inactive Xanax 0.25 mg tablet RxNorm: 561313 Tablet(s) PO TAKE ONE TABLET BY MOUTH EVERY 4 TO 6 HOURS NEEDED 11/12/20162016 Inactive Levaquin 500 mg tablet RxNorm: 905638 1 Tablet(s) PO daily 10/28/2016 Inactive Levaquin 500 mg tablet RxNorm: 039612 1 Tablet(s) PO daily 11/04/2016 Inactive Pyridium 200 mg tablet RxNorm: 9236014 1 Tablet(s) PO TID PRN 10/29/2016 04/25/2017 Inactive potassium chloride ER 10 mEq tablet,extended release RxNorm: 124054 2 Capsule(s) PO BID 10/20/2016 02/16/2017 Inactive potassium chloride ER 10 mEq tablet,extended release RxNorm: 927007 2 Capsule(s) PO BID 10/16/2016 10/19/2016 Inactive potassium chloride ER 10 mEq tablet,extended release RxNorm: 169182 1 Capsule(s) PO daily 10/15/2016 10/15/2016 Inactive potassium chloride 40 mEq/15 mL oral liquid RxNorm: 157922 7.5 Milliliter(s) PO BID 10/05/2016 10/11/2016 Inactive potassium chloride 40 mEq/15 mL oral liquid RxNorm: 558771 7.5 Milliliter(s) PO BID 10/05/2016 10/04/2016 Inactive potassium chloride 40 mEq/15 mL oral liquid RxNorm: 170740 7.5 Milliliter(s) PO BID 10/05/2016 10/04/2016 Inactive doxycycline hyclate 100 mg tablet RxNorm: 282884 1 Tablet(s) PO BID 09/30/2016 10/09/2016 Inactive Vitamin D2 50,000 unit capsule RxNorm: 521088 1 Capsule(s) PO QW 09/15/2016 09/14/2016 Inactive Vitamin D2 50,000 unit capsule RxNorm: 270645 1 Capsule(s) PO QW 09/15/2016 12/13/2016 Inactive doxycycline hyclate 100 mg tablet RxNorm: 487619 1 Tablet(s) PO BID 08/11/2016 08/24/2016 Inactive doxycycline hyclate 100 mg tablet RxNorm: 853552 1 Tablet(s) PO BID 07/24/2016 07/28/2016 Inactive mupirocin 2 % topical ointment RxNorm: 603055 1 Application TOP BID 07/24/2016 07/23/2016 Inactive mupirocin 2 % topical ointment RxNorm: 623141 1 Application TOP BID 07/24/2016 07/30/2016 Inactive doxycycline hyclate 100 mg tablet RxNorm: 255026 1 Tablet(s) PO BID 07/24/2016 07/23/2016 Inactive potassium chloride ER 10 mEq tablet,extended release RxNorm: 358100 2 Tablet(s) PO BID 07/20/2016 10/04/2016 Inactive Lasix 20 mg tablet RxNorm: 843026 1 Tablet(s) PO PRN 2016 No Stop Date Active PRN for swelling Xanax 0.25 mg tablet RxNorm: 201851 Tablet(s) PO TAKE ONE TABLET BY MOUTH EVERY 4 TO 6 HOURS NEEDED 06/19/20162016 Inactive prednisone 20 mg tablet RxNorm: 572024 1 Tablet(s) PO BID 06/0306/07/2016 Inactive potassium chloride ER 10 mEq tablet,extended release RxNorm: 242122 2 Tablet(s) PO BID 05/06/2016 05/05/2016 Inactive potassium chloride ER 10 mEq tablet,extended release RxNorm: 883417 2 Tablet(s) PO BID 05/06/2016 06/04/2016 Inactive Levaquin 500 mg tablet RxNorm: 007115 1 Tablet(s) PO daily 03/30/2016 Inactive Levaquin 500 mg tablet RxNorm: 275285 1 Tablet(s) PO daily 04/06/2016 Inactive prednisone 20 mg tablet RxNorm: 226948 1 Tablet(s) PO BID 02/2402/29/2016 Inactive prednisone 20 mg tablet RxNorm: 877561 1 Tablet(s) PO BID 02/2402/24/2016 Inactive Flonase 50 mcg/actuation nasal spray,suspension RxNorm: 5550902 2 [place] NASAL daily 02/18/2016 02/27/2016 Inactive doxycycline hyclate 100 mg tablet RxNorm: 022972 1 Tablet(s) PO BID 02/18/2016 02/27/2016 Inactive doxycycline hyclate 100 mg tablet RxNorm: 090995 1 Tablet(s) PO BID 02/18/2016 02/17/2016 Inactive cyclobenzaprine 5 mg tablet RxNorm: 178533 1-2 Tablet(s) PO TID as needed 02/12/2016 02/21/2016 Inactive cyclobenzaprine 5 mg tablet RxNorm: 512936 1-2 Tablet(s) PO TID as needed 02/12/2016 02/11/2016 Inactive Xanax 0.25 mg tablet RxNorm: 035489 Tablet(s) PO TAKE ONE TABLET BY MOUTH EVERY 4 TO 6 HOURS NEEDED 01/20/20162016 Inactive (Appended: Controlled substance eRx refill - RxReferenceNumber: [id number]) metoprolol tartrate 25 mg tablet RxNorm: 299981 1/2 Tablet(s) PO BID 12/13/2015 04/10/2016 Inactive doxazosin 2 mg tablet RxNorm: 503160 1 Tablet(s) PO QHS 201512/16/2016 Inactive metoprolol tartrate 25 mg tablet RxNorm: 184144 1/2 Tablet(s) PO BID 12/09/2015 12/12/2015 Inactive Vitamin D2 50,000 unit capsule RxNorm: 365561 1 Capsule(s) PO QW 12/09/2015 02/06/2016 Inactive Lasix 20 mg tablet RxNorm: 953814 1 Tablet(s) PO PRN 201507/05/2016 Inactive PRN for swelling potassium chloride ER 20 mEq tablet,extended release RxNorm: 328150 1 Tablet(s) PO daily as needed When taking lasix 10/03/2015 04/26/2016 Inactive cyanocobalamin (vit B-12) 1,000 mcg/mL injection solution RxNorm: 543178 Milliliter(s) Inj 09/13/2015 09/13/2015 Inactive doxycycline hyclate 100 mg tablet RxNorm: 762918 1 Tablet(s) PO BID 09/12/2015 09/18/2015 Inactive potassium chloride ER 10 mEq tablet,extended release RxNorm: 758141 1 Tablet(s) PO daily as needed When taking lasix 09/04/2015 10/02/2015 Inactive Lasix 20 mg tablet RxNorm: 764142 1 Tablet(s) PO PRN 201510/02/2015 Inactive PRN for swelling doxycycline hyclate 100 mg tablet RxNorm: 791643 1 Tablet(s) PO BID 08/26/2015 08/25/2015 Inactive doxycycline hyclate 100 mg tablet RxNorm: 399298 1 Tablet(s) PO BID 08/26/2015 09/01/2015 Inactive mupirocin 2 % topical ointment RxNorm: 179736 1 Application TOP BID 08/02/2015 08/01/2015 Inactive mupirocin 2 % topical ointment RxNorm: 063666 1 Application TOP BID 08/02/2015 08/08/2015 Inactive metoprolol tartrate 50 mg tablet RxNorm: 384527 2 tabs in morning and 1 tablet at night dose PO as directed 06/13/201510/23 Inactive 2 tabs in the morning, and 1 in the evening Benicar 40 mg tablet RxNorm: 981863 1 Tablet(s) PO daily 201510/21/2015 Inactive Benicar 40 mg tablet RxNorm: 862376 1 Tablet(s) PO daily 201506/12/2015 Inactive Vitamin D2 50,000 unit capsule RxNorm: 939755 1 Capsule(s) PO QW 06/11/2015 12/07/2015 Inactive Xanax 0.25 mg tablet RxNorm: 021140 Tablet(s) PO TAKE ONE TABLET BY MOUTH EVERY 4 TO 6 HOURS NEEDED 06/06/20152015 Inactive (Appended: Controlled substance eRx refill - RxReferenceNumber: [id number]) Levaquin 500 mg tablet RxNorm: 812334 1 Tablet(s) PO daily 11/201510/28/2015 Inactive Kenalog 40 mg/mL suspension for injection RxNorm: 0237950 Milliliter(s) Inj 03/27/2015 03/27/2015 Inactive Kenalog 40 mg/mL suspension for injection RxNorm: 5483553 Milliliter(s) Inj 12/11/2014 12/11/2014 Inactive Vitamin D2 50,000 unit capsule RxNorm: 277894 1 Capsule(s) PO QW 12/05/2014 06/02/2015 Inactive [SAVINGS FOR NON-COVERED DRUGS -- BIN:[id number], PCN: ASPROD1, Group: XXXXX, ID# [id number], Questions: . THIS IS NOT INSURANCE.] Pradaxa 150 mg capsule RxNorm: 1792242 Capsule(s) PO BID 201409/08/2015 Inactive TAKE 1 CAPSULE BY MOUTH TWICE DAILY Vitamin D2 50,000 unit capsule RxNorm: 568387 1 Capsule(s) PO QW 12/04/2014 12/04/2014 Inactive [SAVINGS FOR NON-COVERED DRUGS -- BIN:716319, PCN: ASPROD1, Group: XXXXX, ID# [id number], Questions: . THIS IS NOT INSURANCE.] Lasix 20 mg tablet RxNorm: 388660 1 Tablet(s) PO PRN 201411/25/2014 Inactive PRN for swelling Levaquin 500 mg tablet RxNorm: 538034 1 Tablet(s) PO daily 01/201511/25/2014 Inactive Levaquin 500 mg tablet RxNorm: 190173 1 Tablet(s) PO daily 01/201512/02/2014 Inactive Lasix 20 mg tablet RxNorm: 133211 1 Tablet(s) PO PRN 201409/03/2015 Inactive PRN for swelling nitrofurantoin 100 mg capsule RxNorm: 412545 1 Capsule(s) PO BID 11/12/2014 11/17/2014 Inactive Macrobid 100 mg capsule RxNorm: 902374 1 Capsule(s) PO BID 11/18/2014 Inactive Macrobid 100 mg capsule RxNorm: 808377 1 Capsule(s) PO BID 11/11/2014 Inactive Levaquin 500 mg tablet RxNorm: 734872 1 Tablet(s) PO daily 11/11/2014 Inactive metoprolol tartrate 50 mg tablet RxNorm: 150407 2 tabs in morning and 1 tablet at night dose PO as directed 10/25/201405/21 Inactive 2 tabs in the morning, and 1 in the evening Xanax 0.25 mg tablet RxNorm: 771204 Tablet(s) PO TAKE ONE TABLET BY MOUTH EVERY 4 TO 6 HOURS NEEDED 08/30/20142014 Inactive (Appended: Controlled substance eRx refill - RxReferenceNumber: [id number]) Levaquin 500 mg tablet RxNorm: 567781 1 Tablet(s) PO daily 07/31/2014 Inactive Levaquin 500 mg tablet RxNorm: 629027 1 Tablet(s) PO daily 08/07/2014 Inactive Vitamin D2 50,000 unit capsule RxNorm: 337325 1 Capsule(s) PO QW 05/16/2014 2014 Inactive [SAVINGS FOR NON-COVERED DRUGS -- BIN:347143, PCN: ASPROD1, Group: XXXXX, ID# [id number], Questions: . THIS IS NOT INSURANCE.] Zithromax 500 mg tablet RxNorm: 933500 1 Tablet(s) PO daily 05/10/2014 Inactive Zithromax 500 mg tablet RxNorm: 341080 1 Tablet(s) PO daily 05/15/2014 Inactive [SAVINGS FOR NON-COVERED DRUGS -- BIN:655536, PCN: ASPROD1, Group: XXXXX, ID# [id number], Questions: . THIS IS NOT INSURANCE.] prednisone 20 mg tablet RxNorm: 788508 Tablet(s) PO 3daily x 2days, then 2daily x2days, then 1daily x2days, then 1/2 daily x 2days then stop 03/13/2014 2014 Inactive [SAVINGS FOR UNINSURED PATIENTS -- BIN:349464, PCN: ASPROD1, Group: [id number], ID# [id number], Process claim through [employer], for questions: [phone]. THIS IS NOT INSURANCE.] Levaquin 500 mg tablet RxNorm: 128549 1 Tablet(s) PO daily TAKE ONE TABLET BY MOUTH ONCE DAILY take with benadryl 03/13/2014 03/22/2014 Inactive [SAVINGS FOR UNINSURED PATIENTS -- BIN:524768, PCN: ASPROD1, Group: [id number], ID# [id number], Process claim through [employer], for questions: . THIS IS NOT INSURANCE.] Levaquin 500 mg tablet RxNorm: 298142 1 Tablet(s) PO daily TAKE ONE TABLET BY MOUTH ONCE DAILY take with benadryl 02/26/2014 03/07/2014 Inactive pt to seed cone picker today 01/06/14 [SAVINGS FOR UNINSURED PATIENTS -- BIN:849723, PCN: ASPROD1, Group: [id number], ID# [id number], Process claim through [employer], for questions: [phone]. THIS IS NOT INSURANCE.] Xanax 0.25 mg tablet RxNorm: 489448 Tablet(s) PO TAKE ONE TABLET BY MOUTH EVERY 4 TO 6 HOURS NEEDED 02/05/20142013 Inactive (Appended: Controlled substance eRx refill - RxReferenceNumber: [id number]) prednisone 20 mg tablet RxNorm: 761336 2 Tablet(s) PO QAM 01/0601/10/2014 Inactive call pt when ready for seed cone picker today 01/06/14 Levaquin 500 mg tablet RxNorm: 675034 1 Tablet(s) PO daily TAKE ONE TABLET BY MOUTH ONCE DAILY take with benadryl 01/06/2014 01/12/2014 Inactive pt to seed cone picker today 01/06/14 prednisone 20 mg tablet RxNorm: 171551 Tablet(s) PO 3daily x 2days, then 2daily x2days, then 1daily x2days, then 1/2 daily x 2days then stop 12/13/2013 03/12/2014 Inactive Levaquin 500 mg tablet RxNorm: 164628 1 Tablet(s) PO daily TAKE ONE TABLET BY MOUTH ONCE DAILY take with benadryl 12/13/2013 12/19/2013 Inactive Vitamin D2 50,000 unit capsule RxNorm: 099870 1 Capsule(s) PO QW 12/12/2013 03/11/2014 Inactive weekly x 12 weeks Vitamin D2 50,000 unit capsule RxNorm: 497538 1 Capsule(s) PO QW 12/12/2013 12/11/2013 Inactive metoprolol tartrate 50 mg tablet RxNorm: 011520 2 tabs in morning and 1 tablet at night dose PO as directed 11/03/201305/31 Inactive 2 tabs in the morning, and 1 in the evening Bactroban 2 % topical ointment RxNorm: 976199 1 Application TOP BID 10/30/2013 11/08/2013 Inactive Bactroban 2 % topical ointment RxNorm: 625969 1 Application TOP BID 10/30/2013 10/29/2013 Inactive Lasix 40 mg tablet RxNorm: 789575 1 Tablet(s) PO daily as needed 10/23/2013 2014 Inactive metoprolol tartrate 50 mg tablet RxNorm: 395458 1 Tablet(s) PO BID 08/28/2013 09/26/2013 Inactive 2 tabs in the morning, and 1 in the evening metoprolol tartrate 50 mg tablet RxNorm: 742078 1 Tablet(s) PO BID 08/28/2013 08/27/2013 Inactive 2 tabs in the morning, and 1 in the evening Lasix 40 mg tablet RxNorm: 081765 1 Tablet(s) PO daily 201310/22/2013 Inactive Lasix 40 mg tablet RxNorm: 267780 1 Tablet(s) PO daily 201308/07/2013 Inactive potassium chloride ER 10 mEq tablet,extended release RxNorm: 550498 1 Tablet(s) PO BID 07/14/2013 2014 Inactive Lipitor 20 mg tablet RxNorm: 709269 1 Tablet(s) PO daily 201307/08/2014 Inactive generic ok Xanax 0.25 mg tablet RxNorm: 093933 Tablet(s) PO TAKE 1 TABLET BY MOUTH EVERY 4 TO 6 HOURS NEEDED 07/14/20132013 Inactive (Appended: Controlled substance eRx refill - RxReferenceNumber: [id number]|1|0|1) Xanax 0.25 mg tablet RxNorm: 596100 Tablet(s) PO TAKE ONE TABLET BY MOUTH EVERY 4 TO 6 HOURS NEEDED 07/14/20132013 Inactive (Appended: Controlled substance eRx refill - RxReferenceNumber: [id number]) metoprolol succinate ER 50 mg tablet,extended release 24 hr RxNorm: 469809 100mg q am 50 in even Tablet(s) PO 07/14/2013 Inactive Levaquin 500 mg tablet RxNorm: 743725 Tablet(s) PO TAKE ONE TABLET BY MOUTH ONCE DAILY 07/13/2013 12/12/2013 Inactive Levaquin 500 mg tablet RxNorm: 446555 Tablet(s) PO TAKE ONE TABLET BY MOUTH ONCE DAILY 07/13/2013 10/22/2013 Inactive Levaquin 500 mg tablet RxNorm: 568044 1 Tablet(s) PO daily 02/201305/22/2013 Inactive Levaquin 500 mg tablet RxNorm: 160699 1 Tablet(s) PO daily 05/15/2013 Inactive Lipitor 20 mg tablet RxNorm: 544141 1 Tablet(s) PO daily 201307/13/2013 Inactive generic ok Kenalog 40 mg/mL suspension for injection RxNorm: 4057188 1 Milliliter(s) Inj 04/14/2013 04/14/2013 Inactive Lipitor 20 mg tablet RxNorm: 078915 1 Tablet(s) PO daily 201304/16/2013 Inactive Lipitor 20 mg tablet RxNorm: 588362 1 Tablet(s) PO daily 201304/13/2013 Inactive metoprolol succinate ER 50 mg tablet,extended release 24 hr RxNorm: 315685 100mg q am 50 in even Tablet(s) PO 04/14/2013 Inactive Levaquin 500 mg tablet RxNorm: 265780 1 Tablet(s) PO daily 04/20/2013 Inactive Carafate 1 gram tablet RxNorm: 537960 1 Tablet(s) PO QID 201303/30/2013 Inactive Carafate 1 gram tablet RxNorm: 407168 1 Tablet(s) PO QID 201304/23/2013 Inactive Zithromax Z-Preston 250 mg tablet RxNorm: 492045 Tablet(s) PO zpack as directed 01/31/2013 04/12/2013 Inactive Zofran 4 mg tablet RxNorm: 820180 1 Tablet(s) PO Q6 PRN 12/0704/12/2013 Inactive Xanax 0.25 mg tablet RxNorm: 826667 Tablet(s) PO TAKE 1 TABLET BY MOUTH EVERY 4 TO 6 HOURS NEEDED 06/20/20122013 Inactive (Appended: Controlled substance eRx refill - RxReferenceNumber: [id number]|1|0|1) Xanax 0.25 mg tablet RxNorm: 074082 1 Tablet(s) PO Q4-6H q 4-6 hrs prn 06/20/2012 No Stop Date Active doxycycline monohydrate 100 mg tablet RxNorm: 684140 1 Tablet(s) PO BID 05/17/2012 05/26/2012 Inactive doxycycline monohydrate 100 mg tablet RxNorm: 508009 1 Tablet(s) PO BID 04/11/2012 04/20/2012 Inactive Kenalog 40 mg/mL Susp for Injection RxNorm: 8983023 1 Milliliter(s) Inj 04/11/2012 04/11/2012 Inactive metoprolol succinate ER 50 mg tablet,extended release 24 hr RxNorm: 455523 Tablet (s) PO TAKE 1 & 1/2 TABLETS BY MOUTH TWICE DAILY 02/01/2012 04/13/2013 Inactive Lipitor 40 mg tablet RxNorm: 452206 Tablet(s) PO TAKE 1 TABLET BY MOUTH EVERY DAY 02/01/2012 04/12/2013 Inactive Pradaxa 150 mg capsule RxNorm: 4316439 Capsule(s) PO 201112/03/2014 Inactive TAKE 1 CAPSULE BY MOUTH TWICE DAILY Xanax 0.25 mg tablet RxNorm: 125662 1 Tablet(s) PO Q4-6H q 4-6 hrs prn 12/28/2011 06/20/2012 Inactive metoprolol succinate ER 50 mg tablet,extended release 24 hr RxNorm: 088342 Tablet (s) PO 12/28/2011 01/31/2012 Inactive TAKE 1 & 1/2 TABLETS BY MOUTH TWICE DAILY Singulair 10 mg tablet RxNorm: 772648 Tablet(s) PO 12/28/2011 04/13/2013 Inactive TAKE ONE TABLET BY MOUTH DAILY clindamycin 150 mg capsule RxNorm: 577562 1 Capsule(s) PO QID 11/25/2011 12/01/2011 Inactive Influenza Virus Vaccine 0.5 mL RxNorm: IM 11/11/2011 11/11/2011 Inactive Pneumovax 23 25 mcg/0.5 mL Injection RxNorm: 330762 Milliliter(s) Inj 11/11/2011 11/11/2011 Inactive Biaxin 500 mg tablet RxNorm: 248810 1 Tablet(s) PO BID 201110/30/2011 Inactive Flagyl 500 mg tablet RxNorm: 055494 1 Tablet(s) PO TID 201109/03/2011 Inactive Flagyl 500 mg tablet RxNorm: 744428 1 Tablet(s) PO TID 201109/10/2011 Inactive doxycycline hyclate 100 mg tablet RxNorm: 223141 1 Tablet(s) PO BID 09/04/2011 09/10/2011 Inactive doxycycline hyclate 100 mg tablet RxNorm: 762845 1 Tablet(s) PO BID 09/04/2011 09/03/2011 Inactive Xopenex 1.25 mg/3 mL Neb Solution RxNorm: 200378 1 Unit(s) INH Q4 PRN 08/18/2011 12/15/2011 Inactive 1 box Xopenex 1.25 mg/3 mL Neb Solution RxNorm: 758868 1 Milliliter(s) INH Q4 PRN 08/18/2011 08/17/2011 Inactive 1 box Zithromax Z-Preston 250 mg Tab RxNorm: 001847 Tablet(s) PO UD 08/1008/11/2011 Inactive doxycycline hyclate 100 mg Tab RxNorm: 107827 1 Tablet(s) PO BID 08/11/2011 08/11/2011 Inactive prednisone 10 mg Tab RxNorm: 374325 1 Tablet(s) PO BID q a.m. and q NOON x 5 days 08/11/2011 08/10/2011 Inactive prednisone 10 mg Tab RxNorm: 312625 1 Tablet(s) PO BID q a.m. and q NOON x 5 days 08/11/2011 08/15/2011 Inactive Kenalog 40 mg/mL Susp for Injection RxNorm: 9492932 1 Milliliter(s) Inj 08/11/2011 08/11/2011 Inactive doxycycline hyclate 100 mg Tab RxNorm: 455501 1 Tablet(s) PO BID 08/11/2011 08/10/2011 Inactive nystatin 100,000 unit/mL Oral Susp RxNorm: 459807 6 Milliliter(s) PO QID 08/10/2011 08/16/2011 Inactive Jamie 60 mg Tab RxNorm: 189580 1 Tablet(s) PO daily 201101/23/2012 Inactive Jamie 60 mg Tab RxNorm: 829891 1 Tablet(s) PO daily 201107/27/2011 Inactive potassium chloride ER 10 mEq tablet,extended release RxNorm: 300263 1 Tablet(s) PO BID 07/27/2011 08/19/2012 Inactive Synthroid 75 mcg Tab RxNorm: 781111 Tablet(s) PO 07/06/2011 07/29/2012 Inactive one tab wednesday1/2 tab other days potassium chloride ER 10 mEq Tab RxNorm: 236096 1 Tablet(s) PO BID 07/02/2011 07/26/2011 Inactive Lasix 40 mg tablet RxNorm: 765272 1 Tablet(s) PO daily 201112/28/2011 Inactive Nexium 40 mg Capsule, delayed release RxNorm: 797504 1 Capsule(s) PO daily 06/25/2011 11/24/2011 Inactive Lexapro 10 mg Tab RxNorm: 446847 1 Tablet(s) PO daily 201107/14/2011 Inactive Carafate 100 mg/mL Oral Susp RxNorm: 645878 10 Milliliter(s) PO QID 06/25/2011 10/20/2011 Inactive dispense qs x 1 month nystatin 100,000 unit/mL Oral Susp RxNorm: 210996 3 Milliliter(s) PO QID swish, gargle, then swallow four times daily. 06/25/2011 07/14/2011 Inactive dispense qs x 10 days. Mucinex 1,200 mg 12 hr Tab RxNorm: 184632 1 Tablet(s) PO BID 07/21/2011 Inactive Lipitor 40 mg tablet RxNorm: 030823 1 Tablet(s) PO daily 201112/18/2011 Inactive lactobacillus acidophilus Cap RxNorm: 2 Capsule(s) PO BID 08/201107/14/2011 Inactive Mucinex 1,200 mg 12 hr Tab RxNorm: 294091 1 Tablet(s) PO BID 06/21/2011 Inactive lactobacillus acidophilus Cap RxNorm: 1 Capsule(s) PO BID 06/21/2011 Inactive Kenalog 40 mg/mL Susp for Injection RxNorm: 6329109 1 Milliliter(s) Inj 06/15/2011 06/15/2011 Inactive Flagyl 500 mg Tab RxNorm: 542910 1 Tablet(s) PO TID 201107/14/2011 Inactive doxycycline hyclate 100 mg Cap RxNorm: 680967 1 Capsule(s) PO BID 06/15/2011 07/14/2011 Inactive clarithromycin 250 mg Tab RxNorm: 508481 1 Tablet(s) PO BID 07/14/2011 Inactive Xanax 0.25 mg tablet RxNorm: 482166 1 Tablet(s) PO Q4-6H q 4-6 hrs prn 05/27/2011 07/16/2011 Inactive Lasix 40 mg Tab RxNorm : 668209 3 Tablet(s) PO as directed 2 q am and 1 q noon 05/27/2011 07/01/2011 Inactive potassium chloride ER 10 mEq Tab RxNorm: 284909 1 Tablet(s) PO BID 05/27/2011 05/26/2011 Inactive KCL 10 meq RxNorm: 1 PO BID 05/27/201112/2011 Inactive potassium chloride ER 10 mEq Tab RxNorm: 812705 1 Tablet(s) PO BID 05/27/2011 06/25/2011 Inactive Pradaxa 75 mg Cap RxNorm: 9431087 2 Capsule(s) PO daily 09/29/2011 Inactive Biaxin 500 mg Tab RxNorm: 206350 1 Tablet(s) PO BID 201103/16/2011 Inactive Biaxin 500 mg Tab RxNorm: 711796 1 Tablet(s) PO BID 201107/14/2011 Inactive azithromycin 250 mg Tab RxNorm: 602560 1 Tablet(s) PO daily two by mouth daily x 3 days, then daily thereafter 02/06/2011 07/14/2011 Inactive two by mouth daily x 3 days, then daily thereafter until supply is exhausted azithromycin 250 mg Tab RxNorm: 830568 1 Tablet(s) PO daily two by mouth daily x 3 days, then daily thereafter 02/06/2011 02/05/2011 Inactive two by mouth daily x 3 days, then daily thereafter until supply is exhausted azithromycin 250 mg Tab RxNorm: 294240 1 Tablet(s) PO daily two by mouth daily x 3 days, then daily thereafter 02/06/2011 02/05/2011 Inactive two by mouth daily x 3 days, then daily thereafter until supply is exhausted Valturna 300 mg-320 mg Tab RxNorm: 9678095 Tablet(s) PO 201007/14/2011 Inactive TAKE 1 TABLET BY MOUTH EVERY DAY Kenalog 40 mg/mL Susp for Injection RxNorm: 1395068 2 Milliliter(s) Inj 11/20/2010 11/20/2010 Inactive Avelox 400 mg Tab RxNorm: 911907 1 Tablet(s) PO daily 201007/14/2011 Inactive Biaxin 500 mg Tab RxNorm: 983483 1 Tablet(s) PO BID 201011/15/2010 Inactive Pradaxa 150 mg Cap RxNorm: 2338646 1 Capsule(s) PO BID 201007/14/2011 Inactive Zyrtec oral RxNorm: 78402 oral No Start Date Active Pepcid oral RxNorm: 4278 oral No Start Date Active doxazosin 2 mg tablet RxNorm: 929351 1/2 Tablet(s) PO BID No Start Date 12/08/2015 Inactive Pyridium 200 mg tablet RxNorm: 0773097 1 Tablet(s) PO TID PRN No Start Date 10/28/2016 Inactive ondansetron 4 mg disintegrating tablet RxNorm: 947980 1 Tablet(s) PO Q4 PRN No Start Date 10/21/2017 Inactive Pradaxa 75 mg Cap RxNorm: [id number] 1 Capsule(s) PO daily No Start Date 05/04/2011 Inactive Singulair 10 mg tablet RxNorm: 790334 1 Tablet(s) PO daily No Start Date 07/14/2011 Inactive hydrocodone-acetaminophen 5 mg-325 mg tablet RxNorm: 272047 1 Tablet(s) PO Q6 PRN No Start Date 04/12/2013 Inactive Toprol XL 100 mg 24 hr Tab RxNorm: 274522 1 Tablet(s) PO BID No Start Date 07/14/2011 Inactive Zofran 4 mg tablet RxNorm: 693014 1 Tablet(s) PO Q6 PRN No Start Date 12/06/2012 Inactive Vitamin D2 50,000 unit capsule RxNorm: 470949 1 Capsule(s) PO QW No Start Date 05/15/2014 Inactive prednisone 10 mg tablet RxNorm: 004601 Tablet(s) PO UD No Start Date 06/15/2017 Inactive 6,5,4,3,2,1 Lipitor 40 mg Tab RxNorm: 671493 1 Tablet(s) PO daily No Start Date 06/21/2011 Inactive Trilipix 135 mg Cap RxNorm: 621110 Capsule(s) PO No Start Date 11/26/2010 Inactive Eliquis 5 mg tablet RxNorm: 8899452 1 Tablet(s) PO BID No Start Date 12/08/2015 Inactive KCL 10 meq RxNorm: 1 PO BID No Start Date 05/26/2011 Inactive Diovan 80 mg Tab RxNorm: 946584 1 Tablet(s) PO QHS No Start Date 07/14/2011 Inactive Lipitor 20 mg tablet RxNorm: 551472 1 Tablet(s) PO daily No Start Date 04/13/2013 Inactive Zithromax Z-Preston 250 mg tablet RxNorm: 335694 Tablet(s) PO No Start Date 01/30/2013 Inactive aspirin 81 mg Tab, Delayed Release RxNorm: 364650 1 Tablet(s) PO daily No Start Date 07/14/2011 Inactive prednisone 20 mg Tab RxNorm: 300248 Tablet(s) PO UD 3 tabs x 1 day, then 2 tabs daily x 2 days then 1 tab daily x 1 days, 1/2 daily x 1 day then 1/2 QOD x 2 doses then stop No Start Date 07/14/2011 Inactive Flonase 50 mcg/actuation Nasal [place] RxNorm: 1147198 2 [place] NASAL daily No Start Date 02/17/2016 Inactive hydrocodone 2.5 mg-guaifenesin 200 mg/5 mL syrup RxNorm: 562787 10 Unit Dose PO Q6 PRN No Start Date 04/25/2017 Inactive potassium chloride ER 10 mEq tablet,extended release RxNorm: 713006 1 Tablet(s) PO daily No Start Date 10/14/2016 Inactive Diovan 160 mg Tab RxNorm: 826315 1 Tablet(s) PO QHS No Start Date 12/20/2011 Inactive Lasix 40 mg Tab RxNorm : 942170 3 Tablet(s) PO as directed 2 q am and 1 q noon No Start Date 05/26/2011 Inactive metoprolol succinate ER 50 mg tablet,extended release 24 hr RxNorm: 963617 1 1 / 2 Tablet(s) PO BID No Start Date 2011 Inactive Carafate 1 gram Tab RxNorm: 862306 1 Tablet(s) PO TID No Start Date 07/14/2011 Inactive doxycycline hyclate 100 mg tablet RxNorm: 812033 1 Tablet(s) PO BID No Start Date 08/10/2016 Inactive Zithromax Z-Preston 250 mg Tab RxNorm: 804252 Oral No Start Date 08/10/2011 Inactive prednisone 20 mg Tab RxNorm: 092652 Tablet(s) PO No Start Date 04/06/2011 Inactive 3 tabs x 2 days, 2 tabs x 2 days, 1 tab x 2 days, 1/2 daily x 4 days then stop Bentyl 10 mg Cap RxNorm: 163621 1 Capsule(s) PO BID No Start Date 07/14/2011 Inactive Xarelto 15 mg tablet RxNorm: 1971549 1 Tablet(s) PO daily No Start Date 06/27/2017 Inactive Valturna 300 mg-320 mg Tab RxNorm: 2065916 1 Tablet(s) PO daily No Start Date 01/19/2011 Inactive Vitamin D 1,000 unit Tab RxNorm: 890443 1 Tablet(s) PO daily No Start Date 07/14/2011 Inactive Lexapro 10 mg Tab RxNorm: 254284 1 Tablet(s) PO daily No Start Date 04/06/2011 Inactive Synthroid 75 mcg Tab RxNorm: 147792 Tablet(s) PO No Start Date 07/05/2011 Inactive Protonix 40 mg Tab RxNorm: 684732 1 Tablet(s) PO daily No Start Date 07/14/2011 Inactive ranitidine 150 mg tablet RxNorm: 744187 1 Tablet(s) PO BID No Start Date 04/25/2017 Inactive prednisone 20 mg tablet RxNorm: 307329 Tablet(s) PO 3daily x 2days, then 2daily x2days, then 1daily x2days, then 1/2 daily x 2days then stop No Start Date 12/12/2013 Inactive Nexium 40 mg Cap RxNorm: 272248 1 Capsule(s) PO daily No Start Date 06/03/2011 Inactive Xanax 0.25 mg Tab RxNorm: 378679 1 Tablet(s) PO Q4-6H q 4-6 hrs prn No Start Date 04/06/2011 Inactive Synthroid 50 mcg Tab RxNorm: 486498 1 Tablet(s) PO daily No Start Date 07/14/2011 Inactive Pradaxa 150 mg capsule RxNorm: 8657366 1 Capsule(s) PO BID No Start Date 12/30/2011 Inactive metoprolol tartrate 25 mg tablet RxNorm: 420387 1 Tablet(s) PO TID No Start Date 12/08/2015 Inactive Singulair 5 mg Chewable Tab RxNorm: 107126 1 Tablet(s) PO every other day No Start Date 04/13/2013 Inactive Medication Administered Medication Codes Instructions Start Date Status cyanocobalamin (vit B-12) 1,000 mcg/mL injection solution RxNorm: 045274 Milliliter 09/13/2015 No longer Active Kenalog 40 mg/mL suspension for injection RxNorm: 6393273 Milliliter 03/27/2015 No longer Active Kenalog 40 mg/mL suspension for injection RxNorm: 0684552 Millil[place] 12/11/2014 No longer Active Kenalog 40 mg/mL suspension for injection RxNorm: 5701514 1Milliliter 04/14/2013 No longer Active Kenalog 40 mg/mL Susp for Injection RxNorm: 0189021 1Milliliter 04/11/2012 No longer Active Influenza Virus Vaccine 0.5 mL RxNorm: 11/11/2011 No longer Active Pneumovax 23 25 mcg/0.5 mL Injection RxNorm: 245316 Milliliter 11/11/2011 No longer Active Kenalog 40 mg/mL Susp for Injection RxNorm: 6130787 1Milliliter 08/11/2011 No longer Active Kenalog 40 mg/mL Susp for Injection RxNorm: 4905665 1Milliliter 06/15/2011 No longer Active Kenalog 40 mg/mL Susp for Injection RxNorm: 1229692 2Milliliter 11/20/2010 No longer Active Immunizations Vaccine [...] medications ICD-9: V58.69 04/12/2013 ESSENTIAL HYPERTENSION SNOMED: [id number] ICD-9: 401.9 04/12/2013 ATRIAL FIBRILLATION ICD-9: 427.31 [...] Knee pain, acute ICD-9: 719.46 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 Encounter for general adult medical [...] 10/12/2017 Electrolytes Ord62 ANION GAP 16 10/12/2017 Cbc With Differential Ord2 WBC 7.63 K/ul [...] 30.4 pg 03/15/2017 Cbc With Differential Ord2 [place]% 6.7 % 03/15/2017 Cbc With Differential Ord2 [...] 2.24 K/ul 03/15/2017 Cbc With Differential Ord2 [place] ABS# 0.5 K/ul 03/15/2017 Cbc With Differential Ord2 Eos ABS# 0.1 K/ul 03/15/2017 Cbc With Differential Ord2 Baso ABS# 0.0 K/ul 03/15/2017 Lipid Ord30 CHOL 160 mg/dL 03/15/2017 Lipid Ord30 HDL 46.0 mg/dl 03/15/2017 Lipid Ord30 TRIG 73 mg/dL 03/15/2017 Lipid Ord30 LDL 99 mg/dL 03/15/2017 Lipid Ord30 C/HDL 3.5 Ratio 03/15/2017 Comp Metabolic Jdo496 NA 140 mEq/L 03/15/2017 Comp Metabolic Vfo207 K 3.6 mEq/L 03/15/2017 Comp Metabolic Ecw441 CL 104 mEq/L 03/15/2017 Comp Metabolic Afs483 CO2 27.0 mEq/L 03/15/2017 Comp Metabolic Nuy483 ANION GAP 13 03/15/2017 Comp Metabolic Aah544 GLUCOSE 93 mg/dL 03/15/2017 Comp Metabolic Svv115 Creat 0.9 mg/dL 03/15/2017 Comp Metabolic Rml581 eGFR 68 ml/min/1.73m2 03/15/2017 Comp Metabolic Gkz885 BUN 10 mg/dL 03/15/2017 Comp Metabolic Qpd972 B/C Ratio 11.4 Ratio 03/15/2017 Comp Metabolic Bil223 CALCIUM 9.4 mg/dL 03/15/2017 Comp Metabolic Ntu288 ALK PHOS 84 U/L 03/15/2017 Comp Metabolic Hct869 AST(SGOT) 14 U/L 03/15/2017 Comp Metabolic Tzg691 ALT(SGPT) 15 U/L 03/15/2017 Comp Metabolic Zwr471 BILI T 0.5 mg/dL 03/15/2017 Comp Metabolic Rpg435 ALBUMIN 3.6 g/dL 03/15/2017 Comp Metabolic Wov496 TPRO 6.0 g/dL 03/15/2017 Comp Metabolic Mpz146 GLOB 2.4 g/dL 03/15/2017 Comp Metabolic Awk531 A/G Ratio 1.5 Ratio 03/15/2017 Comp Metabolic Xzl571 Osmo 278 mOsmo 03/15/2017 Magnesium Ord90 Mag 2.0 mg/dL 03/15/2017 Tsh Ord6 TSH (3rd IS) 1.92 [...] Ord15 CALCIUM 9.4 mg/dL 01/15/2017 Comp Metabolic Lbm127 NA 137 mEq/L 12/31/2016 Comp Metabolic Xqk728 K 3.2 mEq/L 12/31/2016 Comp Metabolic Mce177 CL 95 mEq/L 12/31/2016 Comp Metabolic Vje744 CO2 30.0 mEq/L 12/31/2016 Comp Metabolic Puj915 ANION GAP 15 12/31/2016 Comp Metabolic Ytu410 GLUCOSE 111 mg/dL 12/31/2016 Comp Metabolic Ejk420 Creat 1.3 mg/dL 12/31/2016 Comp Metabolic Fsj704 eGFR 45 ml/min/1.73m2 12/31/2016 Comp Metabolic Hfz052 BUN 14 mg/dL 12/31/2016 Comp Metabolic Yml521 B/C Ratio 11.1 Ratio 12/31/2016 Comp Metabolic Yda953 CALCIUM 10.0 mg/dL 12/31/2016 Comp Metabolic Hth245 ALK PHOS 61 U/L 12/31/2016 Comp Metabolic Ukt630 AST(SGOT) 14 U/L 12/31/2016 Comp Metabolic Mpp381 ALT(SGPT) 13 U/L 12/31/2016 Comp Metabolic Gds884 BILI T 0.9 mg/dL 12/31/2016 Comp Metabolic Kdq568 ALBUMIN 3.8 g/dL 12/31/2016 Comp Metabolic Vvh142 TPRO 6.7 g/dL 12/31/2016 Comp Metabolic Ndj864 GLOB 2.9 g/dL 12/31/2016 Comp Metabolic Czv835 A/G Ratio 1.3 Ratio 12/31/2016 Comp Metabolic Sjb275 Osmo 275 mOsmo 12/31/2016 Cbc With Differential [...] 30.3 pg 12/31/2016 Cbc With Differential Ord2 [place]% 11.2 % 12/31/2016 Cbc With Differential Ord2 [...] 1.89 K/ul 12/31/2016 Cbc With Differential Ord2 [place] ABS# 0.7 K/ul 12/31/2016 Cbc With Differential Ord2 Eos ABS# 0.1 K/ul 12/31/2016 Cbc With Differential Ord2 Baso ABS# 0.1 K/ul 12/31/2016 Urine Culture Ucult Complete >100,000 col/ml aerobic growth sent to ref lab 10/30/2016 Magnesium Ord90 Mag 2.0 mg/dL 09/15/2016 Vitamin D 25 Oh Swo1804 VITAMIN D, 25 HYDROXY 25.95 ng/mL Comp Metabolic Uzz002 NA 139 mEq/L 09/15/2016 Comp Metabolic Aub458 K 4.0 mEq/L 09/15/2016 Comp Metabolic Swk934 CL 104 mEq/L 09/15/2016 Comp Metabolic Tzq590 CO2 27.0 mEq/L 09/15/2016 Comp Metabolic Mmo627 ANION GAP 12 09/15/2016 Comp Metabolic Hjg104 GLUCOSE 105 mg/dL 09/15/2016 Comp Metabolic Akf243 Creat 0.9 mg/dL 09/15/2016 Comp Metabolic Pnh986 eGFR 67 ml/min/1.73m2 09/15/2016 Comp Metabolic Wup843 BUN 14 mg/dL 09/15/2016 Comp Metabolic Ghu780 B/C Ratio 15.7 Ratio 09/15/2016 Comp Metabolic Fhr679 CALCIUM 9.0 mg/dL 09/15/2016 Comp Metabolic Qso248 ALK PHOS 85 U/L 09/15/2016 Comp Metabolic Ahg704 AST(SGOT) 12 U/L 09/15/2016 Comp Metabolic Qnv170 ALT(SGPT) 11 U/L 09/15/2016 Comp Metabolic Viy373 BILI T 0.5 mg/dL 09/15/2016 Comp Metabolic Xna622 ALBUMIN 3.4 g/dL 09/15/2016 Comp Metabolic Xcd755 TPRO 5.8 g/dL 09/15/2016 Comp Metabolic Csf070 GLOB 2.4 g/dL 09/15/2016 Comp Metabolic Jwl862 A/G Ratio 1.4 Ratio 09/15/2016 Comp Metabolic Fdv059 Osmo 278 mOsmo 09/15/2016 Lipid Ord30 CHOL 209 mg/dL 09/15/2016 Lipid Ord30 HDL 54.0 mg/dl 09/15/2016 Lipid Ord30 TRIG 104 mg/dL 09/15/2016 Lipid Ord30 LDL 134 mg/dL 09/15/2016 Lipid Ord30 C/HDL 3.9 Ratio 09/15/2016 Tsh Ord6 hTSH II 2.88 uIU/mL 09/15/2016 Magnesium Ord90 Mag 2.2 mg/dL 01/13/2016 [...] 9.2 mg/dL 01/13/2016 Vitamin D 25 Oh Fyd8204 VITAMIN D, 25 HYDROXY 38.03 ng/mL Comp Metabolic Utk122 NA 139 mEq/L 11/28/2015 Comp Metabolic Usi533 K 4.0 mEq/L 11/28/2015 Comp Metabolic Ayp983 CL 105 mEq/L 11/28/2015 Comp Metabolic Swo732 CO2 25.0 mEq/L 11/28/2015 Comp Metabolic Hwx152 ANION GAP 13 11/28/2015 Comp Metabolic Vnq227 GLUCOSE 100 mg/dL 11/28/2015 Comp Metabolic Det923 Creat 1.1 mg/dL 11/28/2015 Comp Metabolic Kko808 eGFR 55 ml/min/1.73m2 11/28/2015 Comp Metabolic Apz831 BUN 13 mg/dL 11/28/2015 Comp Metabolic Myk904 B/C Ratio 12.3 Ratio 11/28/2015 Comp Metabolic Gcs468 CALCIUM 9.2 mg/dL 11/28/2015 Comp Metabolic Cvz376 ALK PHOS 85 U/L 11/28/2015 Comp Metabolic Udz740 AST(SGOT) 15 U/L 11/28/2015 Comp Metabolic Zjk224 ALT(SGPT) 15 U/L 11/28/2015 Comp Metabolic Izp345 BILI T 0.5 mg/dL 11/28/2015 Comp Metabolic Vas174 ALBUMIN 3.7 g/dL 11/28/2015 Comp Metabolic Axo118 TPRO 6.4 g/dL 11/28/2015 Comp Metabolic Oep424 GLOB 2.7 g/dL 11/28/2015 Comp Metabolic Gkl340 A/G Ratio 1.4 Ratio 11/28/2015 Comp Metabolic Zch311 Osmo 278 mOsmo 11/28/2015 Tsh Ord6 hTSH II 1.98 uIU/mL 11/28/2015 Free T4 Ape739 FREE T4 1.04 ng/dL 11/28/2015 Cbc With Differential Ord2 WBC 8.46 K/ul 11/28/2015 Cbc With Differential Ord2 RBC 4.70 M/ul 11/28/2015 Cbc With Differential Ord2 HGB 14.5 g/dl 11/28/2015 Cbc With Differential Ord2 Neut% 65.7 % 11/28/2015 Cbc With Differential Ord2 HCT 44.4 % 11/28/2015 Cbc With Differential Ord2 MCV 94.5 fl 11/28/2015 Cbc With Differential Ord2 Lymph% 25.9 % 11/28/2015 Cbc With Differential Ord2 MCH 30.9 pg 11/28/2015 Cbc With Differential Ord2 [place]% 6.7 % 11/28/2015 Cbc With Differential Ord2 [...] 2.19 K/ul 11/28/2015 Cbc With Differential Ord2 [place] ABS# 0.6 K/ul 11/28/2015 Cbc With Differential Ord2 Eos ABS# 0.1 K/ul 11/28/2015 Cbc With Differential Ord2 Baso ABS# 0.1 K/ul 11/28/2015 Comp Metabolic Iww259 NA 135 mEq/L 10/15/2015 Comp Metabolic Qvq475 K 3.5 mEq/L 10/15/2015 Comp Metabolic Oej695 CL 100 mEq/L 10/15/2015 Comp Metabolic Xds137 CO2 29.0 mEq/L 10/15/2015 Comp Metabolic Fmw203 ANION GAP 10 10/15/2015 Comp Metabolic Ook207 GLUCOSE 88 mg/dL 10/15/2015 Comp Metabolic Xlr269 Creat 0.9 mg/dL 10/15/2015 Comp Metabolic Dxh136 eGFR 67 ml/min/1.73m2 10/15/2015 Comp Metabolic Goa979 BUN 16 mg/dL 10/15/2015 Comp Metabolic Cgi685 B/C Ratio 17.8 Ratio 10/15/2015 Comp Metabolic Opx484 CALCIUM 9.4 mg/dL 10/15/2015 Comp Metabolic Itq240 ALK PHOS 96 U/L 10/15/2015 Comp Metabolic Vab904 AST(SGOT) 15 U/L 10/15/2015 Comp Metabolic Psx229 ALT(SGPT) -125 U/L 10/15/2015 Comp Metabolic Icg849 BILI T 0.4 mg/dL 10/15/2015 Comp Metabolic Seo505 ALBUMIN 4.2 g/dL 10/15/2015 Comp Metabolic Rfh169 TPRO 7.2 g/dL 10/15/2015 Comp Metabolic Jiz335 GLOB 3.1 g/dL 10/15/2015 Comp Metabolic Ndc618 A/G Ratio 1.4 Ratio 10/15/2015 Comp Metabolic Bat049 Osmo 271 mOsmo 10/15/2015 Comp Metabolic Qan053 NA 135 mEq/L 10/15/2015 Comp Metabolic Osw415 K 3.5 mEq/L 10/15/2015 Comp Metabolic Jek795 CL 100 mEq/L 10/15/2015 Comp Metabolic Eic820 CO2 29.0 mEq/L 10/15/2015 Comp Metabolic Lxc692 ANION GAP 10 10/15/2015 Comp Metabolic Kpm802 GLUCOSE 88 mg/dL 10/15/2015 Comp Metabolic Ihb509 Creat 0.9 mg/dL 10/15/2015 Comp Metabolic Trm177 eGFR 67 ml/min/1.73m2 10/15/2015 Comp Metabolic Ysq411 BUN 16 mg/dL 10/15/2015 Comp Metabolic Jel530 B/C Ratio 17.8 Ratio 10/15/2015 Comp Metabolic Typ372 CALCIUM 9.4 mg/dL 10/15/2015 Comp Metabolic Zmm907 ALK PHOS 96 U/L 10/15/2015 Comp Metabolic Mos330 AST(SGOT) 15 U/L 10/15/2015 Comp Metabolic Wwt185 ALT(SGPT) 14 U/L 10/15/2015 Comp Metabolic Lev105 BILI T 0.4 mg/dL 10/15/2015 Comp Metabolic Vtq096 ALBUMIN 4.2 g/dL 10/15/2015 Comp Metabolic Hur426 TPRO 7.2 g/dL 10/15/2015 Comp Metabolic Glz979 GLOB 3.1 g/dL 10/15/2015 Comp Metabolic Slo144 A/G Ratio 1.4 Ratio 10/15/2015 Comp Metabolic Lkt724 Osmo 271 mOsmo 10/15/2015 Magnesium Ord90 Mag 2.2 mg/dL 10/15/2015 Comp Metabolic Qiv815 NA 138 mEq/L 09/05/2015 Comp Metabolic Lqj221 K 3.7 mEq/L 09/05/2015 Comp Metabolic Ukk674 CL 99 mEq/L 09/05/2015 Comp Metabolic Zcm055 CO2 30.0 mEq/L 09/05/2015 Comp Metabolic Apx358 ANION GAP 13 09/05/2015 Comp Metabolic Wyb305 GLUCOSE 97 mg/dL 09/05/2015 Comp Metabolic Rmz936 Creat 1.1 mg/dL 09/05/2015 Comp Metabolic Mqf315 eGFR 54 ml/min/1.73m2 09/05/2015 Comp Metabolic Avc327 BUN 18 mg/dL 09/05/2015 Comp Metabolic Pud953 B/C Ratio 16.7 Ratio 09/05/2015 Comp Metabolic Szj776 CALCIUM 9.6 mg/dL 09/05/2015 Comp Metabolic Wsu635 ALK PHOS 96 U/L 09/05/2015 Comp Metabolic Okn745 AST(SGOT) 15 U/L 09/05/2015 Comp Metabolic Mxn538 ALT(SGPT) 14 U/L 09/05/2015 Comp Metabolic Cfa314 BILI T 0.5 mg/dL 09/05/2015 Comp Metabolic Fxn390 ALBUMIN 4.1 g/dL 09/05/2015 Comp Metabolic Koi921 TPRO 7.0 g/dL 09/05/2015 Comp Metabolic Qpj881 GLOB 3.0 g/dL 09/05/2015 Comp Metabolic Uqa950 A/G Ratio 1.4 Ratio 09/05/2015 Comp Metabolic Kpd365 Osmo 277 mOsmo 09/05/2015 Magnesium Ord90 Mag 1.9 mg/dL 09/05/2015 Vitamin D 25 Oh Ecg3914 VITAMIN D, 25 HYDROXY 22.39 ng/mL Magnesium Ord90 Mag 2.0 mg/dL 06/11/2015 Tsh Ord6 hTSH II 3.52 uIU/mL 06/11/2015 Comp Metabolic Ttw276 NA 135 mEq/L 06/11/2015 Comp Metabolic Ukj026 K 4.3 mEq/L 06/11/2015 Comp Metabolic Cos054 CL 103 mEq/L 06/11/2015 Comp Metabolic Xhi057 CO2 25.0 mEq/L 06/11/2015 Comp Metabolic Kqn325 ANION GAP 11 06/11/2015 Comp Metabolic Hcs092 GLUCOSE 75 mg/dL 06/11/2015 Comp Metabolic Lqf457 Creat 0.9 mg/dL 06/11/2015 Comp Metabolic Gxu685 eGFR 69 ml/min/1.73m2 06/11/2015 Comp Metabolic Igu552 BUN 22 mg/dL 06/11/2015 Comp Metabolic Coj556 B/C Ratio 25.3 Ratio 06/11/2015 Comp Metabolic Nvj266 CALCIUM 9.2 mg/dL 06/11/2015 Comp Metabolic Tlj511 ALK PHOS 88 U/L 06/11/2015 Comp Metabolic Veg161 AST(SGOT) 13 U/L 06/11/2015 Comp Metabolic Ldo690 ALT(SGPT) 15 U/L 06/11/2015 Comp Metabolic Ttf541 BILI T 0.4 mg/dL 06/11/2015 Comp Metabolic Qot040 ALBUMIN 3.7 g/dL 06/11/2015 Comp Metabolic Tff223 TPRO 6.6 g/dL 06/11/2015 Comp Metabolic Tnx384 GLOB 2.9 g/dL 06/11/2015 Comp Metabolic Agr073 A/G Ratio 1.3 Ratio 06/11/2015 Comp Metabolic Fkz043 Osmo 272 mOsmo 06/11/2015 Free T4 Cko445 FREE T4 0.95 ng/dL 06/11/2015 Cbc With [...] 31.3 pg 06/11/2015 Cbc With Differential Ord2 [place]% 7.4 % 06/11/2015 Cbc With Differential Ord2 [...] 2.57 K/ul 06/11/2015 Cbc With Differential Ord2 [place] ABS# 0.9 K/ul 06/11/2015 Cbc With Differential [...] 01/24/2015 Metabolic Ord15 CALCIUM 9.4 mg/dL 01/24/2015 Comp Metabolic Dkm576 NA 138 mEq/L 11/16/2014 Comp Metabolic Hsb303 K 4.0 mEq/L 11/16/2014 Comp Metabolic Hky664 CL 104 mEq/L 11/16/2014 Comp Metabolic Usj707 CO2 27.0 mEq/L 11/16/2014 Comp Metabolic Yud112 ANION GAP 11 11/16/2014 Comp Metabolic Zvt295 GLUCOSE 94 mg/dL 11/16/2014 Comp Metabolic Udh611 Creat 0.9 mg/dL 11/16/2014 Comp Metabolic Pmx898 eGFR 64 ml/min/1.73m2 11/16/2014 Comp Metabolic Aur689 BUN 12 mg/dL 11/16/2014 Comp Metabolic Sos512 B/C Ratio 12.9 Ratio 11/16/2014 Comp Metabolic Tni779 CALCIUM 9.4 mg/dL 11/16/2014 Comp Metabolic Pgi275 ALK PHOS 88 U/L 11/16/2014 Comp Metabolic Ekh460 AST(SGOT) 14 U/L 11/16/2014 Comp Metabolic Sva049 ALT(SGPT) 12 U/L 11/16/2014 Comp Metabolic Yce140 BILI T 0.6 mg/dL 11/16/2014 Comp Metabolic Erq101 ALBUMIN 3.7 g/dL 11/16/2014 Comp Metabolic Kzy547 TPRO 6.3 g/dL 11/16/2014 Comp Metabolic Cnn683 GLOB 2.6 g/dL 11/16/2014 Comp Metabolic Ahe294 A/G Ratio 1.4 Ratio 11/16/2014 Comp Metabolic Cgc885 Osmo 275 mOsmo 11/16/2014 Vitamin D 25 Oh Qtr6911 VITAMIN D, 25 HYDROXY 22.85 ng/mL %Hba1C Rjj439 % HbA1c 51975-6 5.7 % 11/16/2014 %Hba1C Pcs177 Gluc Ave 117 mg/dL 11/16/2014 Tsh Ord6 hTSH II 2.05 uIU/mL [...] With Differential Ord2 RDW 13.8 % 11/16/2014 Lipid Ord30 CHOL 206 mg/dL 11/16/2014 Lipid Ord30 HDL 49.0 mg/dl 11/16/2014 Lipid Ord30 TRIG 104 mg/dL 11/16/2014 Lipid Ord30 LDL 136 mg/dL 11/16/2014 Lipid Ord30 C/HDL 4.2 Ratio 11/16/2014 GFR CALC 4215970 GFR AA >60 ML/MIN 04/12/2013 GFR CALC 0574178 GFR NON-AA >60 ML/MIN 04/12/2013 CBC 7651180 WBC 8.8 10e9/L 04/12/2013 CBC 1719834 RBC 4.59 10e12/L 04/12/2013 CBC 1170600 HGB 14.3 g/dL 04/12/2013 CBC 8886717 HCT DET 42.4 % 04/12/2013 CBC 7889403 MCV 92.4 fL 04/12/2013 CBC 3235569 MCH 31.2 pg 04/12/2013 CBC 7176311 MCHC 33.7 g/dL 04/12/2013 CBC 8449166 PLT 213 10e9/L 04/12/2013 CBC 1299716 MPV 12.8 fL 04/12/2013 CBC 7394329 LULU % 61.8 % 04/12/2013 CBC 1287541 LY % 29.2 % 04/12/2013 CBC 9746170 MON % 7.2 % 04/12/2013 CBC 6655587 EOS % 1.3 % 04/12/2013 CBC 3236919 BASO % 0.5 % 04/12/2013 CBC 0623406 RDW 12.6 % 04/12/2013 CBC 4925407 ABS LULU 5.44 10e9/L 04/12/2013 CBC 8994711 ABS LYMPH 2.57 10e9/L 04/12/2013 CBC 4154515 ABS MONO 0.63 10e9/L 04/12/2013 CBC 8277943 ABS EOS 0.11 10e9/L 04/12/2013 CBC 8160306 ABS BASO 0.04 10e9/L 04/12/2013 CBC 1059267 RDW-SD 41.3 fL 04/12/2013 A1C HPLC 4254402 A1C HPLC 03773-5 5.4 % 04/12/2013 VIT B 12 6654063 VIT B 12 415 PG/ML 04/12/2013 TSH 0378491 TSH 2.194 uIU/ML 04/12/2013 FREE T4 4101536 FREE T4 1.09 NG/DL 04/12/2013 CHEM 14 9277576 AST 12 U/L 04/12/2013 CHEM 14 3059622 ALT 11 IU/L 04/12/2013 CHEM 14 6147702 BUN 14 MG/DL 04/12/2013 CHEM 14 3213209 ALBUMIN 4.1 GM/DL 04/12/2013 CHEM 14 5726368 CHLORIDE 105 MMOL/L 04/12/2013 CHEM 14 7414420 BILI TOT 0.6 MG/DL 04/12/2013 CHEM 14 8961415 ALK PHOS 81 U/L 04/12/2013 CHEM 14 5289197 SODIUM 138 MMOL/L 04/12/2013 CHEM 14 7711824 CREATININE 0.86 MG/DL 04/12/2013 CHEM 14 3102874 CALCIUM 9.8 MG/DL 04/12/2013 CHEM 14 0066593 POTASSIUM 4.1 MMOL/L 04/12/2013 CHEM 14 3985896 PROT TOT 6.6 GM/DL 04/12/2013 CHEM 14 9112372 GLUCOSE 112 MG/DL 04/12/2013 CHEM 14 4912915 BICARB 27 MMOL/L 04/12/2013 CHEM 14 9399219 ANION GAP 6 MEQ/L 04/12/2013 LIPID GRP HDL TEST 55 MG/DL 04/12/2013 LIPID GRP TRIG 107 MG/DL 04/12/2013 LIPID GRP TEST LDL 193 MG/DL 04/12/2013 LIPID GRP CHOL 269 MG/DL 04/12/2013 LIPID GRP RCHOL/HDL 4.89 RATIO 04/12/2013 NICOT QN S 0339334 NICOTIN S < 2.0 NG/ML 03/07/2012 NICOT QN S 4686040 XCOTININ S < 2.0 NG/ML 03/07/2012 LIPID GRP HDL TEST 37 MG/DL 03/02/2012 LIPID GRP TRIG 136 MG/DL 03/02/2012 LIPID GRP TEST LDL 106 MG/DL 03/02/2012 LIPID GRP CHOL 170 MG/DL 03/02/2012 LIPID GRP RCHOL/HDL 4.59 RATIO 03/02/2012 A1C HPLC 0979344 A1C HPLC 84332-9 5.4 % 03/02/2012 CBC 3486974 WBC 8.1 10e9/L 03/02/2012 CBC 0166777 RBC 4.44 10e12/L 03/02/2012 CBC 4731706 HGB 13.8 g/dL 03/02/2012 CBC 9270338 HCT DET 41.3 % 03/02/2012 CBC 0200754 MCV 93.0 fL 03/02/2012 CBC 7466125 MCH 31.1 pg 03/02/2012 CBC 8171075 MCHC 33.4 g/dL 03/02/2012 CBC 8687378 PLT 188 10e9/L 03/02/2012 CBC 5871073 MPV 14.3 fL 03/02/2012 CBC 1612425 LULU % 61.5 % 03/02/2012 CBC 6057743 LY % 28.8 % 03/02/2012 CBC 6514562 MON % 8.0 % 03/02/2012 CBC 8152368 EOS % 1.1 % 03/02/2012 CBC 0263028 BASO % 0.6 % 03/02/2012 CBC 1290530 RDW 14.0 % 03/02/2012 CBC 0989964 ABS LULU 4.98 10e9/L 03/02/2012 CBC 7209167 ABS LYMPH 2.33 10e9/L 03/02/2012 CBC 7853099 ABS MONO 0.65 10e9/L 03/02/2012 CBC 7834061 ABS EOS 0.09 10e9/L 03/02/2012 CBC 6339485 ABS BASO 0.05 10e9/L 03/02/2012 CBC 3939887 RDW-SD 46.3 fL 03/02/2012 GFR CALC 6572434 GFR AA >60 ML/MIN 03/02/2012 GFR CALC 3569398 GFR NON-AA >60 ML/MIN 03/02/2012 FREE T4 6969777 FREE T4 1.09 NG/DL 03/02/2012 CHEM 14 1014687 AST 17 U/L 03/02/2012 CHEM 14 2823746 ALT 22 IU/L 03/02/2012 CHEM 14 6521363 BUN 15 MG/DL 03/02/2012 CHEM 14 0518203 ALBUMIN 4.0 GM/DL 03/02/2012 CHEM 14 9494545 CHLORIDE 107 MMOL/L 03/02/2012 CHEM 14 7639966 BILI TOT 0.4 MG/DL 03/02/2012 CHEM 14 0505034 ALK PHOS 83 U/L 03/02/2012 CHEM 14 4470945 SODIUM 141 MMOL/L 03/02/2012 CHEM 14 6629894 CREATININE 0.86 MG/DL 03/02/2012 CHEM 14 6846783 CALCIUM 9.5 MG/DL 03/02/2012 CHEM 14 0483670 POTASSIUM 4.0 MMOL/L 03/02/2012 CHEM 14 6844147 PROT TOT 6.6 GM/DL 03/02/2012 CHEM 14 6731483 GLUCOSE 102 MG/DL 03/02/2012 CHEM 14 5378903 BICARB 28 MMOL/L 03/02/2012 CHEM 14 2543848 ANION GAP 6 MEQ/L 03/02/2012 TSH 1941265 TSH 2.320 uIU/ML 03/02/2012 CHEM 14 6384157 AST 15 U/L 07/03/2011 CHEM 14 5762405 ALT 30 IU/L 07/03/2011 CHEM 14 9184913 BUN 19 MG/DL 07/03/2011 CHEM 14 3197075 ALBUMIN 4.2 GM/DL 07/03/2011 CHEM 14 3310251 CHLORIDE 100 MMOL/L 07/03/2011 CHEM 14 3606200 BILI TOT 0.8 MG/DL 07/03/2011 CHEM 14 8374817 ALK PHOS 74 U/L 07/03/2011 CHEM 14 8260726 SODIUM 137 MMOL/L 07/03/2011 CHEM 14 9333605 CREATININE 1.03 MG/DL 07/03/2011 CHEM 14 6529173 CALCIUM 9.6 MG/DL 07/03/2011 CHEM 14 2073060 POTASSIUM 4.4 MMOL/L 07/03/2011 CHEM 14 5918264 PROT TOT 6.7 GM/DL 07/03/2011 CHEM 14 3848271 GLUCOSE 106 MG/DL 07/03/2011 CHEM 14 4878816 BICARB 28 MMOL/L 07/03/2011 CHEM 14 8154060 ANION GAP 9 MEQ/L 07/03/2011 GFR CALC 2394859 GFR AA >60 ML/MIN 07/03/2011 GFR CALC 5770145 GFR NON-AA 54.0L ML/MIN 07/03/2011 URINALYSIS NONAUTO W/O SCOPE 46538 Specific [place] 1.010 DateTime(Free Text in Aprima) URINALYSIS NONAUTO W/O SCOPE 41573 PH 5 DateTime(Free Text in Aprima) URINALYSIS NONAUTO W/O SCOPE 02595 GLUCOSE neg DateTime( Free Text in Aprima) URINALYSIS NONAUTO W/O SCOPE 60522 Protein neg DateTime( Free Text in Aprima) URINALYSIS NONAUTO W/O SCOPE 58535 Blood 1+ DateTime(Free Text in Aprima) URINALYSIS NONAUTO W/O SCOPE 71271 Bilirubin neg DateTime(Free Text in Aprima) URINALYSIS NONAUTO W/O SCOPE 84107 Ketones neg DateTime( Free Text in Aprima) URINALYSIS NONAUTO W/O SCOPE 00942 Urobilinogen neg DateTime(Free Text in Aprima) URINALYSIS NONAUTO W/O SCOPE 37145 Nitrite neg DateTime( Free Text in Aprima) URINALYSIS NONAUTO W/O SCOPE 63677 Leukocytes neg DateTime(Free Text in Aprima) Review [...] Codes Date URINALYSIS NONAUTO W/O SCOPE CPT-4: 89084 01/20/2018 ADMIN INFLUENZA VIRUS VAC CPT-4: G0008 11/03/2017 FLU VACC PRSV FREE INC ANTIG CPT-4: 35046 11/03/2017 PPPS, SUBSEQ VISIT CPT -4: G0439 04/26/2017 ADMIN PNEUMOCOCCAL VACCINE SNOMED CT: 09386191 CPT-4: G0009 03/15/2017 Pneumococcal Polysaccharide Vaccine, 23-Valent, Ad CPT-4: 73941 03/15/2017 URINALYSIS NONAUTO W/O SCOPE CPT-4: 48683 12/31/2016 ADMIN INFLUENZA VIRUS VAC CPT-4: G0008 11/03/2016 FLU VACC PRSV FREE INC ANTIG CPT-4: 91737 11/03/2016 URINALYSIS NONAUTO W/O SCOPE CPT-4: 81090 10/29/2016 PPPS, INITIAL VISIT CPT-4: G0438 12/09/2015 ADMIN INFLUENZA VIRUS VAC CPT-4: G0008 11/13/2015 FLU VACC PRSV FREE INC ANTIG Formatting Model/CDA Sections, Assigned to/Isabel Arrington CPT-4: 76129Pekhemw 11/13/2015 URINALYSIS NONAUTO W/O SCOPE CPT-4: 17251 09/24/2015 THER/PROPH/DIAG INJ SC/IM CPT-4: 83253 09/13/2015 VITAMIN B12 INJECTION CPT-4: J3420 09/13/2015 URINALYSIS NONAUTO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
--- NOTE | 2018-06-03 08:13 | Ophthalmology Operative Report ---
Cataract removal/placement IOL PREOPERATIVE DIAGNOSIS: Cataract Left Eye POSTOPERATIVE DIAGNOSIS: Cataract Left Eye PROCEDURE: Cataract removal and placement of posterior chamber implant, left eye SURGEON: Alexsander Beltran ANESTHESIA: Topical with sedation COMPLICATIONS: None ESTIMATED BLOOD LOSS: Minimal DESCRIPTION OF PROCEDURE: After proper informed consent was obtained, the patient, a 67 female, was taken to the Operating Room and the left eye was anesthetized with tetracaine. The left eye was then prepped and draped in the usual manner. A wire lid speculum was placed. A paracentesis was made at the left hand position. Preservative free lidocaine was injected into the anterior chamber followed by viscoelastic. A clear corneal incision was made in the temporal position. A capsulorrhexis was preformed and the central nuclear and cortical material were removed. The posterior capsule was polished and an Vishal 24.5 [id number] was placed into the capsular bag. The residual viscoelastic was aspirated and balanced saline solution was injected into the anterior chamber. Moxifloxacin was injected into the anterior chamber. The wound was checked and found to be water tight. The patient tolerated the procedure well without complications. ALEXSANDER BELTRAN MD Jun 03, 2018 08:13
--- OUTSIDE RECORDS SUMMARY | 2018-06-03 08:15 | XMS REPORT | CCD ---
Author Author [facility] Address [address] [place] [address] Phone Care Team Providers Care Section Housekeeper Name Role Phone PP Unavailable CCM Unavailable Summary Purpose Interface Exchange Insurance Providers Payer name Policy type / Coverage type Covered alliance party ID Effective Begin Date Effective End Date WPS Medicare Part B [id number] 2017 Unknown [facility] [employer] [employer] [facility] [id number] Unknown Family history Father Diagnosis Age At Onset No Family Disease Entered N/A Runs in the family Diagnosis Age At Onset Diabetes Unknown Mother Diagnosis Age At Onset No Family Disease Entered N/A Social History Social History Element Codes Description Effective Dates Employment Unknown 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 03/17/2011 Active Obesity ICD-9: 278.00 [...] Start Date Stop Date Status Fill Instructions Macrobid 100 mg capsule RxNorm: 230136 1 Capsule(s) PO BID 01/06/2018 Inactive Macrobid 100 mg capsule RxNorm: 631367 1 Capsule(s) PO BID 12/30/2017 Inactive ondansetron 4 mg disintegrating tablet RxNorm: 460494 1 Tablet(s) PO Q4 PRN 10/22/2017 No Stop Date Active Xanax 0.25 mg tablet RxNorm: 972883 Tablet(s) PO TAKE ONE TABLET BY MOUTH EVERY 4 TO 6 HOURS NEEDED 07/29/20172017 Inactive Levaquin 500 mg tablet RxNorm: 915321 1 Tablet(s) PO daily 07/14/2017 Inactive Levaquin 500 mg tablet RxNorm: 314854 1 Tablet(s) PO daily 07/21/2017 Inactive Xarelto 20 mg tablet RxNorm: 0241176 1 Tablet(s) PO daily 06/2812/24/2017 Inactive potassium chloride ER 10 mEq tablet,extended release RxNorm: 256853 2 Capsule(s) PO BID 06/28/2017 12/24/2017 Inactive Xarelto 20 mg tablet RxNorm: 7311706 1 Tablet(s) PO daily 06/2806/27/2017 Inactive potassium chloride ER 10 mEq tablet,extended release RxNorm: 541654 2 Capsule(s) PO BID 06/28/2017 06/27/2017 Inactive prednisone 10 mg tablet RxNorm: 638915 Tablet(s) PO UD 2017 No Stop Date Active 6,5,4,3,2,1 Vitamin D2 50,000 unit capsule RxNorm: 253218 1 Capsule(s) PO QW 04/26/2017 07/24/2017 Inactive Lexapro 10 mg tablet RxNorm: 819960 1 Tablet(s) PO QHS 201601/11/2017 Inactive Lexapro 10 mg tablet RxNorm: 051803 1 Tablet(s) PO QHS 201604/25/2017 Inactive famotidine 20 mg tablet RxNorm: 560083 1 Tablet(s) PO BID 01/0601/05/2017 Inactive famotidine 20 mg tablet RxNorm: 185388 1 Tablet(s) PO BID 01/0604/25/2017 Inactive doxazosin 2 mg tablet RxNorm: 711319 TAKE ONE-HALF TABLET BY MOUTH TWICE DAILY 12/17/2016 04/25/2017 Inactive Xanax 0.25 mg tablet RxNorm: 684826 Tablet(s) PO TAKE ONE TABLET BY MOUTH EVERY 4 TO 6 HOURS NEEDED 11/12/20162016 Inactive Xanax 0.25 mg tablet RxNorm: 131646 Tablet(s) PO TAKE ONE TABLET BY MOUTH EVERY 4 TO 6 HOURS NEEDED 11/12/20162016 Inactive Levaquin 500 mg tablet RxNorm: 960996 1 Tablet(s) PO daily 10/28/2016 Inactive Levaquin 500 mg tablet RxNorm: 941211 1 Tablet(s) PO daily 11/04/2016 Inactive Pyridium 200 mg tablet RxNorm: 9868978 1 Tablet(s) PO TID PRN 10/29/2016 04/25/2017 Inactive potassium chloride ER 10 mEq tablet,extended release RxNorm: 571104 2 Capsule(s) PO BID 10/20/2016 02/16/2017 Inactive potassium chloride ER 10 mEq tablet,extended release RxNorm: 237910 2 Capsule(s) PO BID 10/16/2016 10/19/2016 Inactive potassium chloride ER 10 mEq tablet,extended release RxNorm: 288142 1 Capsule(s) PO daily 10/15/2016 10/15/2016 Inactive potassium chloride 40 mEq/15 mL oral liquid RxNorm: 731895 7.5 Milliliter(s) PO BID 10/05/2016 10/11/2016 Inactive potassium chloride 40 mEq/15 mL oral liquid RxNorm: 215630 7.5 Milliliter(s) PO BID 10/05/2016 10/04/2016 Inactive potassium chloride 40 mEq/15 mL oral liquid RxNorm: 716542 7.5 Milliliter(s) PO BID 10/05/2016 10/04/2016 Inactive doxycycline hyclate 100 mg tablet RxNorm: 790509 1 Tablet(s) PO BID 09/30/2016 10/09/2016 Inactive Vitamin D2 50,000 unit capsule RxNorm: 175886 1 Capsule(s) PO QW 09/15/2016 09/14/2016 Inactive Vitamin D2 50,000 unit capsule RxNorm: 549531 1 Capsule(s) PO QW 09/15/2016 12/13/2016 Inactive doxycycline hyclate 100 mg tablet RxNorm: 816983 1 Tablet(s) PO BID 08/11/2016 08/24/2016 Inactive doxycycline hyclate 100 mg tablet RxNorm: 939231 1 Tablet(s) PO BID 07/24/2016 07/28/2016 Inactive mupirocin 2 % topical ointment RxNorm: 814548 1 Application TOP BID 07/24/2016 07/23/2016 Inactive mupirocin 2 % topical ointment RxNorm: 158384 1 Application TOP BID 07/24/2016 07/30/2016 Inactive doxycycline hyclate 100 mg tablet RxNorm: 171499 1 Tablet(s) PO BID 07/24/2016 07/23/2016 Inactive potassium chloride ER 10 mEq tablet,extended release RxNorm: 557078 2 Tablet(s) PO BID 07/20/2016 10/04/2016 Inactive Lasix 20 mg tablet RxNorm: 719557 1 Tablet(s) PO PRN 2016 No Stop Date Active PRN for swelling Xanax 0.25 mg tablet RxNorm: 819565 Tablet(s) PO TAKE ONE TABLET BY MOUTH EVERY 4 TO 6 HOURS NEEDED 06/19/20162016 Inactive prednisone 20 mg tablet RxNorm: 249696 1 Tablet(s) PO BID 06/0306/07/2016 Inactive potassium chloride ER 10 mEq tablet,extended release RxNorm: 077162 2 Tablet(s) PO BID 05/06/2016 05/05/2016 Inactive potassium chloride ER 10 mEq tablet,extended release RxNorm: 998837 2 Tablet(s) PO BID 05/06/2016 06/04/2016 Inactive Levaquin 500 mg tablet RxNorm: 758121 1 Tablet(s) PO daily 03/30/2016 Inactive Levaquin 500 mg tablet RxNorm: 565492 1 Tablet(s) PO daily 04/06/2016 Inactive prednisone 20 mg tablet RxNorm: 871987 1 Tablet(s) PO BID 02/2402/29/2016 Inactive prednisone 20 mg tablet RxNorm: 739435 1 Tablet(s) PO BID 02/2402/24/2016 Inactive Flonase 50 mcg/actuation nasal spray,suspension RxNorm: 3806313 2 [place] NASAL daily 02/18/2016 02/27/2016 Inactive doxycycline hyclate 100 mg tablet RxNorm: 247942 1 Tablet(s) PO BID 02/18/2016 02/27/2016 Inactive doxycycline hyclate 100 mg tablet RxNorm: 689079 1 Tablet(s) PO BID 02/18/2016 02/17/2016 Inactive cyclobenzaprine 5 mg tablet RxNorm: 447121 1-2 Tablet(s) PO TID as needed 02/12/2016 02/21/2016 Inactive cyclobenzaprine 5 mg tablet RxNorm: 482277 1-2 Tablet(s) PO TID as needed 02/12/2016 02/11/2016 Inactive Xanax 0.25 mg tablet RxNorm: 110088 Tablet(s) PO TAKE ONE TABLET BY MOUTH EVERY 4 TO 6 HOURS NEEDED 01/20/20162016 Inactive (Appended: Controlled substance eRx refill - RxReferenceNumber: [id number]) metoprolol tartrate 25 mg tablet RxNorm: 734205 1/2 Tablet(s) PO BID 12/13/2015 04/10/2016 Inactive doxazosin 2 mg tablet RxNorm: 020306 1 Tablet(s) PO QHS 201512/16/2016 Inactive metoprolol tartrate 25 mg tablet RxNorm: 295332 1/2 Tablet(s) PO BID 12/09/2015 12/12/2015 Inactive Vitamin D2 50,000 unit capsule RxNorm: 635341 1 Capsule(s) PO QW 12/09/2015 02/06/2016 Inactive Lasix 20 mg tablet RxNorm: 883355 1 Tablet(s) PO PRN 201507/05/2016 Inactive PRN for swelling potassium chloride ER 20 mEq tablet,extended release RxNorm: 532224 1 Tablet(s) PO daily as needed When taking lasix 10/03/2015 04/26/2016 Inactive cyanocobalamin (vit B-12) 1,000 mcg/mL injection solution RxNorm: 530145 Milliliter(s) Inj 09/13/2015 09/13/2015 Inactive doxycycline hyclate 100 mg tablet RxNorm: 191374 1 Tablet(s) PO BID 09/12/2015 09/18/2015 Inactive potassium chloride ER 10 mEq tablet,extended release RxNorm: 748237 1 Tablet(s) PO daily as needed When taking lasix 09/04/2015 10/02/2015 Inactive Lasix 20 mg tablet RxNorm: 459364 1 Tablet(s) PO PRN 201510/02/2015 Inactive PRN for swelling doxycycline hyclate 100 mg tablet RxNorm: 278732 1 Tablet(s) PO BID 08/26/2015 08/25/2015 Inactive doxycycline hyclate 100 mg tablet RxNorm: 416729 1 Tablet(s) PO BID 08/26/2015 09/01/2015 Inactive mupirocin 2 % topical ointment RxNorm: 705534 1 Application TOP BID 08/02/2015 08/01/2015 Inactive mupirocin 2 % topical ointment RxNorm: 666992 1 Application TOP BID 08/02/2015 08/08/2015 Inactive metoprolol tartrate 50 mg tablet RxNorm: 342855 2 tabs in morning and 1 tablet at night dose PO as directed 06/13/201510/23 Inactive 2 tabs in the morning, and 1 in the evening Benicar 40 mg tablet RxNorm: 527415 1 Tablet(s) PO daily 201510/21/2015 Inactive Benicar 40 mg tablet RxNorm: 055948 1 Tablet(s) PO daily 201506/12/2015 Inactive Vitamin D2 50,000 unit capsule RxNorm: 016178 1 Capsule(s) PO QW 06/11/2015 12/07/2015 Inactive Xanax 0.25 mg tablet RxNorm: 990678 Tablet(s) PO TAKE ONE TABLET BY MOUTH EVERY 4 TO 6 HOURS NEEDED 06/06/20152015 Inactive (Appended: Controlled substance eRx refill - RxReferenceNumber: [id number]) Levaquin 500 mg tablet RxNorm: 300174 1 Tablet(s) PO daily 11/201510/28/2015 Inactive Kenalog 40 mg/mL suspension for injection RxNorm: 0707298 Milliliter(s) Inj 03/27/2015 03/27/2015 Inactive Kenalog 40 mg/mL suspension for injection RxNorm: 4542221 Milliliter(s) Inj 12/11/2014 12/11/2014 Inactive Vitamin D2 50,000 unit capsule RxNorm: 980656 1 Capsule(s) PO QW 12/05/2014 06/02/2015 Inactive [SAVINGS FOR NON-COVERED DRUGS -- BIN:[id number], PCN: ASPROD1, Group: XXXXX, ID# [id number], Questions: . THIS IS NOT INSURANCE.] Pradaxa 150 mg capsule RxNorm: 1998996 Capsule(s) PO BID 201409/08/2015 Inactive TAKE 1 CAPSULE BY MOUTH TWICE DAILY Vitamin D2 50,000 unit capsule RxNorm: 324891 1 Capsule(s) PO QW 12/04/2014 12/04/2014 Inactive [SAVINGS FOR NON-COVERED DRUGS -- BIN:468690, PCN: ASPROD1, Group: XXXXX, ID# [id number], Questions: . THIS IS NOT INSURANCE.] Lasix 20 mg tablet RxNorm: 990573 1 Tablet(s) PO PRN 201411/25/2014 Inactive PRN for swelling Levaquin 500 mg tablet RxNorm: 257263 1 Tablet(s) PO daily 01/201511/25/2014 Inactive Levaquin 500 mg tablet RxNorm: 714928 1 Tablet(s) PO daily 01/201512/02/2014 Inactive Lasix 20 mg tablet RxNorm: 202709 1 Tablet(s) PO PRN 201409/03/2015 Inactive PRN for swelling nitrofurantoin 100 mg capsule RxNorm: 332452 1 Capsule(s) PO BID 11/12/2014 11/17/2014 Inactive Macrobid 100 mg capsule RxNorm: 465946 1 Capsule(s) PO BID 11/18/2014 Inactive Macrobid 100 mg capsule RxNorm: 944335 1 Capsule(s) PO BID 11/11/2014 Inactive Levaquin 500 mg tablet RxNorm: 290835 1 Tablet(s) PO daily 11/11/2014 Inactive metoprolol tartrate 50 mg tablet RxNorm: 079692 2 tabs in morning and 1 tablet at night dose PO as directed 10/25/201405/21 Inactive 2 tabs in the morning, and 1 in the evening Xanax 0.25 mg tablet RxNorm: 223270 Tablet(s) PO TAKE ONE TABLET BY MOUTH EVERY 4 TO 6 HOURS NEEDED 08/30/20142014 Inactive (Appended: Controlled substance eRx refill - RxReferenceNumber: [id number]) Levaquin 500 mg tablet RxNorm: 291735 1 Tablet(s) PO daily 07/31/2014 Inactive Levaquin 500 mg tablet RxNorm: 716778 1 Tablet(s) PO daily 08/07/2014 Inactive Vitamin D2 50,000 unit capsule RxNorm: 054046 1 Capsule(s) PO QW 05/16/2014 2014 Inactive [SAVINGS FOR NON-COVERED DRUGS -- BIN:131387, PCN: ASPROD1, Group: XXXXX, ID# [id number], Questions: . THIS IS NOT INSURANCE.] Zithromax 500 mg tablet RxNorm: 502330 1 Tablet(s) PO daily 05/10/2014 Inactive Zithromax 500 mg tablet RxNorm: 701377 1 Tablet(s) PO daily 05/15/2014 Inactive [SAVINGS FOR NON-COVERED DRUGS -- BIN:512582, PCN: ASPROD1, Group: XXXXX, ID# [id number], Questions: . THIS IS NOT INSURANCE.] prednisone 20 mg tablet RxNorm: 074466 Tablet(s) PO 3daily x 2days, then 2daily x2days, then 1daily x2days, then 1/2 daily x 2days then stop 03/13/2014 2014 Inactive [SAVINGS FOR UNINSURED PATIENTS -- BIN:906764, PCN: ASPROD1, Group: [id number], ID# [id number], Process claim through [employer], for questions: [phone]. THIS IS NOT INSURANCE.] Levaquin 500 mg tablet RxNorm: 703368 1 Tablet(s) PO daily TAKE ONE TABLET BY MOUTH ONCE DAILY take with benadryl 03/13/2014 03/22/2014 Inactive [SAVINGS FOR UNINSURED PATIENTS -- BIN:077085, PCN: ASPROD1, Group: [id number], ID# [id number], Process claim through [employer], for questions: . 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 01/06/14 prednisone 20 mg tablet RxNorm: 263993 Tablet(s) PO 3daily x 2days, then 2daily x2days, then 1daily x2days, then 1/2 daily x 2days then stop 12/13/2013 03/12/2014 Inactive Levaquin 500 mg tablet RxNorm: 382849 1 Tablet(s) PO daily TAKE ONE TABLET BY MOUTH ONCE DAILY take with benadryl 12/13/2013 12/19/2013 Inactive Vitamin D2 50,000 unit capsule RxNorm: 931903 1 Capsule(s) PO QW 12/12/2013 03/11/2014 Inactive weekly x 12 weeks Vitamin D2 50,000 unit capsule RxNorm: 340251 1 Capsule(s) PO QW 12/12/2013 12/11/2013 Inactive metoprolol tartrate 50 mg tablet RxNorm: 248990 2 tabs in morning and 1 tablet at night dose PO as directed 11/03/201305/31 Inactive 2 tabs in the morning, and 1 in the evening Bactroban 2 % topical ointment RxNorm: 316676 1 Application TOP BID 10/30/2013 11/08/2013 Inactive Bactroban 2 % topical ointment RxNorm: 912740 1 Application TOP BID 10/30/2013 10/29/2013 Inactive Lasix 40 mg tablet RxNorm: 385919 1 Tablet(s) PO daily as needed 10/23/2013 2014 Inactive metoprolol tartrate 50 mg tablet RxNorm: 564809 1 Tablet(s) PO BID 08/28/2013 09/26/2013 Inactive 2 tabs in the morning, and 1 in the evening metoprolol tartrate 50 mg tablet RxNorm: 730329 1 Tablet(s) PO BID 08/28/2013 08/27/2013 Inactive 2 tabs in the morning, and 1 in the evening Lasix 40 mg tablet RxNorm: 790446 1 Tablet(s) PO daily 201310/22/2013 Inactive Lasix 40 mg tablet RxNorm: 461112 1 Tablet(s) PO daily 201308/07/2013 Inactive potassium chloride ER 10 mEq tablet,extended release RxNorm: 047987 1 Tablet(s) PO BID 07/14/2013 2014 Inactive Lipitor 20 mg tablet RxNorm: 493654 1 Tablet(s) PO daily 201307/08/2014 Inactive generic ok Xanax 0.25 mg tablet RxNorm: 472489 Tablet(s) PO TAKE 1 TABLET BY MOUTH EVERY 4 TO 6 HOURS NEEDED 07/14/20132013 Inactive (Appended: Controlled substance eRx refill - RxReferenceNumber: [id number]|1|0|1) Xanax 0.25 mg tablet RxNorm: 155294 Tablet(s) PO TAKE ONE TABLET BY MOUTH EVERY 4 TO 6 HOURS NEEDED 07/14/20132013 Inactive (Appended: Controlled substance eRx refill - RxReferenceNumber: [id number]) metoprolol succinate ER 50 mg tablet,extended release 24 hr RxNorm: 866673 100mg q am 50 in even Tablet(s) PO 07/14/2013 Inactive Levaquin 500 mg tablet RxNorm: 462385 Tablet(s) PO TAKE ONE TABLET BY MOUTH ONCE DAILY 07/13/2013 12/12/2013 Inactive Levaquin 500 mg tablet RxNorm: 104036 Tablet(s) PO TAKE ONE TABLET BY MOUTH ONCE DAILY 07/13/2013 10/22/2013 Inactive Levaquin 500 mg tablet RxNorm: 609119 1 Tablet(s) PO daily 02/201305/22/2013 Inactive Levaquin 500 mg tablet RxNorm: 305462 1 Tablet(s) PO daily 05/15/2013 Inactive Lipitor 20 mg tablet RxNorm: 232131 1 Tablet(s) PO daily 201307/13/2013 Inactive generic ok Kenalog 40 mg/mL suspension for injection RxNorm: 7159794 1 Milliliter(s) Inj 04/14/2013 04/14/2013 Inactive Lipitor 20 mg tablet RxNorm: 516436 1 Tablet(s) PO daily 201304/16/2013 Inactive Lipitor 20 mg tablet RxNorm: 931869 1 Tablet(s) PO daily 201304/13/2013 Inactive metoprolol succinate ER 50 mg tablet,extended release 24 hr RxNorm: 147210 100mg q am 50 in even Tablet(s) PO 04/14/2013 Inactive Levaquin 500 mg tablet RxNorm: 483459 1 Tablet(s) PO daily 04/20/2013 Inactive Carafate 1 gram tablet RxNorm: 527864 1 Tablet(s) PO QID 201303/30/2013 Inactive Carafate 1 gram tablet RxNorm: 236648 1 Tablet(s) PO QID 201304/23/2013 Inactive Zithromax Z-Preston 250 mg tablet RxNorm: 996218 Tablet(s) PO zpack as directed 01/31/2013 04/12/2013 Inactive Zofran 4 mg tablet RxNorm: 356439 1 Tablet(s) PO Q6 PRN 12/0704/12/2013 Inactive Xanax 0.25 mg tablet RxNorm: 744922 Tablet(s) PO TAKE 1 TABLET BY MOUTH EVERY 4 TO 6 HOURS NEEDED 06/20/20122013 Inactive (Appended: Controlled substance eRx refill - RxReferenceNumber: [id number]|1|0|1) Xanax 0.25 mg tablet RxNorm: 895293 1 Tablet(s) PO Q4-6H q 4-6 hrs prn 06/20/2012 No Stop Date Active doxycycline monohydrate 100 mg tablet RxNorm: 632097 1 Tablet(s) PO BID 05/17/2012 05/26/2012 Inactive doxycycline monohydrate 100 mg tablet RxNorm: 941465 1 Tablet(s) PO BID 04/11/2012 04/20/2012 Inactive Kenalog 40 mg/mL Susp for Injection RxNorm: 5478249 1 Milliliter(s) Inj 04/11/2012 04/11/2012 Inactive metoprolol succinate ER 50 mg tablet,extended release 24 hr RxNorm: 142622 Tablet (s) PO TAKE 1 & 1/2 TABLETS BY MOUTH TWICE DAILY 02/01/2012 04/13/2013 Inactive Lipitor 40 mg tablet RxNorm: 026392 Tablet(s) PO TAKE 1 TABLET BY MOUTH EVERY DAY 02/01/2012 04/12/2013 Inactive Pradaxa 150 mg capsule RxNorm: 1150487 Capsule(s) PO 201112/03/2014 Inactive TAKE 1 CAPSULE BY MOUTH TWICE DAILY Xanax 0.25 mg tablet RxNorm: 706626 1 Tablet(s) PO Q4-6H q 4-6 hrs prn 12/28/2011 06/20/2012 Inactive metoprolol succinate ER 50 mg tablet,extended release 24 hr RxNorm: 655609 Tablet (s) PO 12/28/2011 01/31/2012 Inactive TAKE 1 & 1/2 TABLETS BY MOUTH TWICE DAILY Singulair 10 mg tablet RxNorm: 635032 Tablet(s) PO 12/28/2011 04/13/2013 Inactive TAKE ONE TABLET BY MOUTH DAILY clindamycin 150 mg capsule RxNorm: 011650 1 Capsule(s) PO QID 11/25/2011 12/01/2011 Inactive Influenza Virus Vaccine 0.5 mL RxNorm: IM 11/11/2011 11/11/2011 Inactive Pneumovax 23 25 mcg/0.5 mL Injection RxNorm: 923722 Milliliter(s) Inj 11/11/2011 11/11/2011 Inactive Biaxin 500 mg tablet RxNorm: 696005 1 Tablet(s) PO BID 201110/30/2011 Inactive Flagyl 500 mg tablet RxNorm: 770955 1 Tablet(s) PO TID 201109/03/2011 Inactive Flagyl 500 mg tablet RxNorm: 394004 1 Tablet(s) PO TID 201109/10/2011 Inactive doxycycline hyclate 100 mg tablet RxNorm: 630181 1 Tablet(s) PO BID 09/04/2011 09/10/2011 Inactive doxycycline hyclate 100 mg tablet RxNorm: 221156 1 Tablet(s) PO BID 09/04/2011 09/03/2011 Inactive Xopenex 1.25 mg/3 mL Neb Solution RxNorm: 355793 1 Unit(s) INH Q4 PRN 08/18/2011 12/15/2011 Inactive 1 box Xopenex 1.25 mg/3 mL Neb Solution RxNorm: 546462 1 Milliliter(s) INH Q4 PRN 08/18/2011 08/17/2011 Inactive 1 box Zithromax Z-Preston 250 mg Tab RxNorm: 524842 Tablet(s) PO UD 08/1008/11/2011 Inactive doxycycline hyclate 100 mg Tab RxNorm: 558405 1 Tablet(s) PO BID 08/11/2011 08/11/2011 Inactive prednisone 10 mg Tab RxNorm: 561401 1 Tablet(s) PO BID q a.m. and q NOON x 5 days 08/11/2011 08/10/2011 Inactive prednisone 10 mg Tab RxNorm: 647886 1 Tablet(s) PO BID q a.m. and q NOON x 5 days 08/11/2011 08/15/2011 Inactive Kenalog 40 mg/mL Susp for Injection RxNorm: 7085372 1 Milliliter(s) Inj 08/11/2011 08/11/2011 Inactive doxycycline hyclate 100 mg Tab RxNorm: 223492 1 Tablet(s) PO BID 08/11/2011 08/10/2011 Inactive nystatin 100,000 unit/mL Oral Susp RxNorm: 725742 6 Milliliter(s) PO QID 08/10/2011 08/16/2011 Inactive Jamie 60 mg Tab RxNorm: 601179 1 Tablet(s) PO daily 201101/23/2012 Inactive Jamie 60 mg Tab RxNorm: 227979 1 Tablet(s) PO daily 201107/27/2011 Inactive potassium chloride ER 10 mEq tablet,extended release RxNorm: 747436 1 Tablet(s) PO BID 07/27/2011 08/19/2012 Inactive Synthroid 75 mcg Tab RxNorm: 054361 Tablet(s) PO 07/06/2011 07/29/2012 Inactive one tab wednesday1/2 tab other days potassium chloride ER 10 mEq Tab RxNorm: 147775 1 Tablet(s) PO BID 07/02/2011 07/26/2011 Inactive Lasix 40 mg tablet RxNorm: 849771 1 Tablet(s) PO daily 201112/28/2011 Inactive Nexium 40 mg Capsule, delayed release RxNorm: 264929 1 Capsule(s) PO daily 06/25/2011 11/24/2011 Inactive Lexapro 10 mg Tab RxNorm: 050809 1 Tablet(s) PO daily 201107/14/2011 Inactive Carafate 100 mg/mL Oral Susp RxNorm: 929123 10 Milliliter(s) PO QID 06/25/2011 10/20/2011 Inactive dispense qs x 1 month nystatin 100,000 unit/mL Oral Susp RxNorm: 078827 3 Milliliter(s) PO QID swish, gargle, then swallow four times daily. 06/25/2011 07/14/2011 Inactive dispense qs x 10 days. Mucinex 1,200 mg 12 hr Tab RxNorm: 710081 1 Tablet(s) PO BID 07/21/2011 Inactive Lipitor 40 mg tablet RxNorm: 256694 1 Tablet(s) PO daily 201112/18/2011 Inactive lactobacillus acidophilus Cap RxNorm: 2 Capsule(s) PO BID 08/201107/14/2011 Inactive Mucinex 1,200 mg 12 hr Tab RxNorm: 818997 1 Tablet(s) PO BID 06/21/2011 Inactive lactobacillus acidophilus Cap RxNorm: 1 Capsule(s) PO BID 06/21/2011 Inactive Kenalog 40 mg/mL Susp for Injection RxNorm: 8318066 1 Milliliter(s) Inj 06/15/2011 06/15/2011 Inactive Flagyl 500 mg Tab RxNorm: 759836 1 Tablet(s) PO TID 201107/14/2011 Inactive doxycycline hyclate 100 mg Cap RxNorm: 629248 1 Capsule(s) PO BID 06/15/2011 07/14/2011 Inactive clarithromycin 250 mg Tab RxNorm: 490372 1 Tablet(s) PO BID 07/14/2011 Inactive Xanax 0.25 mg tablet RxNorm: 219683 1 Tablet(s) PO Q4-6H q 4-6 hrs prn 05/27/2011 07/16/2011 Inactive Lasix 40 mg Tab RxNorm : 198263 3 Tablet(s) PO as directed 2 q am and 1 q noon 05/27/2011 07/01/2011 Inactive potassium chloride ER 10 mEq Tab RxNorm: 238323 1 Tablet(s) PO BID 05/27/2011 05/26/2011 Inactive KCL 10 meq RxNorm: 1 PO BID 05/27/201112/2011 Inactive potassium chloride ER 10 mEq Tab RxNorm: 202007 1 Tablet(s) PO BID 05/27/2011 06/25/2011 Inactive Pradaxa 75 mg Cap RxNorm: 9094538 2 Capsule(s) PO daily 09/29/2011 Inactive Biaxin 500 mg Tab RxNorm: 390237 1 Tablet(s) PO BID 201103/16/2011 Inactive Biaxin 500 mg Tab RxNorm: 524399 1 Tablet(s) PO BID 201107/14/2011 Inactive azithromycin 250 mg Tab RxNorm: 733187 1 Tablet(s) PO daily two by mouth daily x 3 days, then daily thereafter 02/06/2011 07/14/2011 Inactive two by mouth daily x 3 days, then daily thereafter until supply is exhausted azithromycin 250 mg Tab RxNorm: 776687 1 Tablet(s) PO daily two by mouth daily x 3 days, then daily thereafter 02/06/2011 02/05/2011 Inactive two by mouth daily x 3 days, then daily thereafter until supply is exhausted azithromycin 250 mg Tab RxNorm: 242810 1 Tablet(s) PO daily two by mouth daily x 3 days, then daily thereafter 02/06/2011 02/05/2011 Inactive two by mouth daily x 3 days, then daily thereafter until supply is exhausted Valturna 300 mg-320 mg Tab RxNorm: 0831433 Tablet(s) PO 201007/14/2011 Inactive TAKE 1 TABLET BY MOUTH EVERY DAY Kenalog 40 mg/mL Susp for Injection RxNorm: 0114502 2 Milliliter(s) Inj 11/20/2010 11/20/2010 Inactive Avelox 400 mg Tab RxNorm: 626179 1 Tablet(s) PO daily 201007/14/2011 Inactive Biaxin 500 mg Tab RxNorm: 631434 1 Tablet(s) PO BID 201011/15/2010 Inactive Pradaxa 150 mg Cap RxNorm: 1995215 1 Capsule(s) PO BID 201007/14/2011 Inactive Zyrtec oral RxNorm: 07857 oral No Start Date Active Pepcid oral RxNorm: 4278 oral No Start Date Active doxazosin 2 mg tablet RxNorm: 122358 1/2 Tablet(s) PO BID No Start Date 12/08/2015 Inactive Pyridium 200 mg tablet RxNorm: 7266024 1 Tablet(s) PO TID PRN No Start Date 10/28/2016 Inactive ondansetron 4 mg disintegrating tablet RxNorm: 659636 1 Tablet(s) PO Q4 PRN No Start Date 10/21/2017 Inactive Pradaxa 75 mg Cap RxNorm: 2231213 1 Capsule(s) PO daily No Start Date 05/04/2011 Inactive Singulair 10 mg tablet RxNorm: 083234 1 Tablet(s) PO daily No Start Date 07/14/2011 Inactive hydrocodone-acetaminophen 5 mg-325 mg tablet RxNorm: 095688 1 Tablet(s) PO Q6 PRN No Start Date 04/12/2013 Inactive Toprol XL 100 mg 24 hr Tab RxNorm: 635587 1 Tablet(s) PO BID No Start Date 07/14/2011 Inactive Zofran 4 mg tablet RxNorm: 270107 1 Tablet(s) PO Q6 PRN No Start Date 12/06/2012 Inactive Vitamin D2 50,000 unit capsule RxNorm: 777381 1 Capsule(s) PO QW No Start Date 05/15/2014 Inactive prednisone 10 mg tablet RxNorm: 765694 Tablet(s) PO UD No Start Date 06/15/2017 Inactive 6,5,4,3,2,1 Lipitor 40 mg Tab RxNorm: 951424 1 Tablet(s) PO daily No Start Date 06/21/2011 Inactive Trilipix 135 mg Cap RxNorm: 843713 Capsule(s) PO No Start Date 11/26/2010 Inactive Eliquis 5 mg tablet RxNorm: 7442741 1 Tablet(s) PO BID No Start Date 12/08/2015 Inactive KCL 10 meq RxNorm: 1 PO BID No Start Date 05/26/2011 Inactive Diovan 80 mg Tab RxNorm: 462005 1 Tablet(s) PO QHS No Start Date 07/14/2011 Inactive Lipitor 20 mg tablet RxNorm: 268184 1 Tablet(s) PO daily No Start Date 04/13/2013 Inactive Zithromax Z-Preston 250 mg tablet RxNorm: 718358 Tablet(s) PO No Start Date 01/30/2013 Inactive aspirin 81 mg Tab, Delayed Release RxNorm: 337882 1 Tablet(s) PO daily No Start Date 07/14/2011 Inactive prednisone 20 mg Tab RxNorm: 417261 Tablet(s) PO UD 3 tabs x 1 day, then 2 tabs daily x 2 days then 1 tab daily x 1 days, 1/2 daily x 1 day then 1/2 QOD x 2 doses then stop No Start Date 07/14/2011 Inactive Flonase 50 mcg/actuation Nasal [place] RxNorm: 4727447 2 [place] NASAL daily No Start Date 02/17/2016 Inactive hydrocodone 2.5 mg-guaifenesin 200 mg/5 mL syrup RxNorm: 991668 10 Unit Dose PO Q6 PRN No Start Date 04/25/2017 Inactive potassium chloride ER 10 mEq tablet,extended release RxNorm: 842363 1 Tablet(s) PO daily No Start Date 10/14/2016 Inactive Diovan 160 mg Tab RxNorm: 330800 1 Tablet(s) PO QHS No Start Date 12/20/2011 Inactive Lasix 40 mg Tab RxNorm : 693590 3 Tablet(s) PO as directed 2 q am and 1 q noon No Start Date 05/26/2011 Inactive metoprolol succinate ER 50 mg tablet,extended release 24 hr RxNorm: 494449 1 1 / 2 Tablet(s) PO BID No Start Date 2011 Inactive Carafate 1 gram Tab RxNorm: 100658 1 Tablet(s) PO TID No Start Date 07/14/2011 Inactive doxycycline hyclate 100 mg tablet RxNorm: 920762 1 Tablet(s) PO BID No Start Date 08/10/2016 Inactive Zithromax Z-Preston 250 mg Tab RxNorm: 384404 Oral No Start Date 08/10/2011 Inactive prednisone 20 mg Tab RxNorm: 817257 Tablet(s) PO No Start Date 04/06/2011 Inactive 3 tabs x 2 days, 2 tabs x 2 days, 1 tab x 2 days, 1/2 daily x 4 days then stop Bentyl 10 mg Cap RxNorm: 237564 1 Capsule(s) PO BID No Start Date 07/14/2011 Inactive Xarelto 15 mg tablet RxNorm: 9965886 1 Tablet(s) PO daily No Start Date 06/27/2017 Inactive Valturna 300 mg-320 mg Tab RxNorm: 9404871 1 Tablet(s) PO daily No Start Date 01/19/2011 Inactive Vitamin D 1,000 unit Tab RxNorm: 031450 1 Tablet(s) PO daily No Start Date 07/14/2011 Inactive Lexapro 10 mg Tab RxNorm: 423685 1 Tablet(s) PO daily No Start Date 04/06/2011 Inactive Synthroid 75 mcg Tab RxNorm: 827859 Tablet(s) PO No Start Date 07/05/2011 Inactive Protonix 40 mg Tab RxNorm: 437622 1 Tablet(s) PO daily No Start Date 07/14/2011 Inactive ranitidine 150 mg tablet RxNorm: 888263 1 Tablet(s) PO BID No Start Date 04/25/2017 Inactive prednisone 20 mg tablet RxNorm: 117574 Tablet(s) PO 3daily x 2days, then 2daily x2days, then 1daily x2days, then 1/2 daily x 2days then stop No Start Date 12/12/2013 Inactive Nexium 40 mg Cap RxNorm: 639224 1 Capsule(s) PO daily No Start Date 06/03/2011 Inactive Xanax 0.25 mg Tab RxNorm: 194433 1 Tablet(s) PO Q4-6H q 4-6 hrs prn No Start Date 04/06/2011 Inactive Synthroid 50 mcg Tab RxNorm: 327821 1 Tablet(s) PO daily No Start Date 07/14/2011 Inactive Pradaxa 150 mg capsule RxNorm: 2885057 1 Capsule(s) PO BID No Start Date 12/30/2011 Inactive metoprolol tartrate 25 mg tablet RxNorm: 899727 1 Tablet(s) PO TID No Start Date 12/08/2015 Inactive Singulair 5 mg Chewable Tab RxNorm: 000711 1 Tablet(s) PO every other day No Start Date 04/13/2013 Inactive Medication Administered Medication Codes Instructions Start Date Status cyanocobalamin (vit B-12) 1,000 mcg/mL injection solution RxNorm: 325832 Milliliter 09/13/2015 No longer Active Kenalog 40 mg/mL suspension for injection RxNorm: 7951584 Milliliter 03/27/2015 No longer Active Kenalog 40 mg/mL suspension for injection RxNorm: 0556136 Milliliter 12/11/2014 No longer Active Kenalog 40 mg/mL suspension for injection RxNorm: 9844910 1Milliliter 04/14/2013 No longer Active Kenalog 40 mg/mL Susp for Injection RxNorm: 7502027 1Milliliter 04/11/2012 No longer Active Influenza Virus Vaccine 0.5 mL RxNorm: 11/11/2011 No longer Active Pneumovax 23 25 mcg/0.5 mL Injection RxNorm: 767734 Milliliter 11/11/2011 No longer Active Kenalog 40 mg/mL Susp for Injection RxNorm: 2392565 1Milliliter 08/11/2011 No longer Active Kenalog 40 mg/mL Susp for Injection RxNorm: 1630594 1Milliliter 06/15/2011 No longer Active Kenalog 40 mg/mL Susp for Injection RxNorm: 0489876 2Milliliter 11/20/2010 No longer Active Immunizations Vaccine [...] medications ICD-9: V58.69 04/12/2013 ESSENTIAL HYPERTENSION SNOMED: 31769428 ICD-9: 401.9 04/12/2013 ATRIAL FIBRILLATION ICD-9: 427.31 [...] Knee pain, acute ICD-9: 719.46 2011 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 Encounter for general adult medical [...] Ord30 C/HDL 3.5 Ratio 03/15/2017 Comp Metabolic Wbf970 NA 140 mEq/L 03/15/2017 Comp Metabolic Hjf919 K 3.6 mEq/L 03/15/2017 Comp Metabolic Rqa923 CL 104 mEq/L 03/15/2017 Comp Metabolic Nbf108 CO2 27.0 mEq/L 03/15/2017 Comp Metabolic Kex600 ANION GAP 13 03/15/2017 Comp Metabolic Zcu875 GLUCOSE 93 mg/dL 03/15/2017 Comp Metabolic Nbo829 Creat 0.9 mg/dL 03/15/2017 Comp Metabolic Ltq423 eGFR 68 ml/min/1.73m2 03/15/2017 Comp Metabolic Ovq342 BUN 10 mg/dL 03/15/2017 Comp Metabolic Dbm390 B/C Ratio 11.4 Ratio 03/15/2017 Comp Metabolic Enu943 CALCIUM 9.4 mg/dL 03/15/2017 Comp Metabolic Gfz481 ALK PHOS 84 U/L 03/15/2017 Comp Metabolic Yfl214 AST(SGOT) 14 U/L 03/15/2017 Comp Metabolic Xnw404 ALT(SGPT) 15 U/L 03/15/2017 Comp Metabolic Ctx809 BILI T 0.5 mg/dL 03/15/2017 Comp Metabolic Qtn907 ALBUMIN 3.6 g/dL 03/15/2017 Comp Metabolic Qbd733 TPRO 6.0 g/dL 03/15/2017 Comp Metabolic Uac642 GLOB 2.4 g/dL 03/15/2017 Comp Metabolic Xbg608 A/G Ratio 1.5 Ratio 03/15/2017 Comp Metabolic Jkg304 Osmo 278 mOsmo 03/15/2017 Magnesium Ord90 Mag [...] 30.4 pg 03/15/2017 Cbc With Differential Ord2 [place]% 6.7 % 03/15/2017 Cbc With Differential Ord2 [...] 2.24 K/ul 03/15/2017 Cbc With Differential Ord2 [place] ABS# 0.5 K/ul 03/15/2017 Cbc With Differential [...] Ord15 CALCIUM 9.4 mg/dL 01/15/2017 Comp Metabolic Qnq294 NA 137 mEq/L 12/31/2016 Comp Metabolic Ugl157 K 3.2 mEq/L 12/31/2016 Comp Metabolic Qtl564 CL 95 mEq/L 12/31/2016 Comp Metabolic Obc376 CO2 30.0 mEq/L 12/31/2016 Comp Metabolic Ndi236 ANION GAP 15 12/31/2016 Comp Metabolic Lxo486 GLUCOSE 111 mg/dL 12/31/2016 Comp Metabolic Xpy812 Creat 1.3 mg/dL 12/31/2016 Comp Metabolic Ere453 eGFR 45 ml/min/1.73m2 12/31/2016 Comp Metabolic Ybs937 BUN 14 mg/dL 12/31/2016 Comp Metabolic Qon348 B/C Ratio 11.1 Ratio 12/31/2016 Comp Metabolic Pdl247 CALCIUM 10.0 mg/dL 12/31/2016 Comp Metabolic Pbh816 ALK PHOS 61 U/L 12/31/2016 Comp Metabolic Lkq110 AST(SGOT) 14 U/L 12/31/2016 Comp Metabolic Jrq708 ALT(SGPT) 13 U/L 12/31/2016 Comp Metabolic Ebt639 BILI T 0.9 mg/dL 12/31/2016 Comp Metabolic Ife712 ALBUMIN 3.8 g/dL 12/31/2016 Comp Metabolic Vvh509 TPRO 6.7 g/dL 12/31/2016 Comp Metabolic Nah296 GLOB 2.9 g/dL 12/31/2016 Comp Metabolic Eoz771 A/G Ratio 1.3 Ratio 12/31/2016 Comp Metabolic Naj847 Osmo 275 mOsmo 12/31/2016 Cbc With Differential [...] 30.3 pg 12/31/2016 Cbc With Differential Ord2 [place]% 11.2 % 12/31/2016 Cbc With Differential Ord2 [...] 1.89 K/ul 12/31/2016 Cbc With Differential Ord2 [place] ABS# 0.7 K/ul 12/31/2016 Cbc With Differential Ord2 Eos ABS# 0.1 K/ul 12/31/2016 Cbc With Differential Ord2 Baso ABS# 0.1 K/ul 12/31/2016 Urine Culture Ucult Complete >100,000 col/ml aerobic growth sent to ref lab 10/30/2016 Tsh Ord6 hTSH II 2.88 uIU/mL 09/15/2016 Comp Metabolic Zdz960 NA 139 mEq/L 09/15/2016 Comp Metabolic Qnf180 K 4.0 mEq/L 09/15/2016 Comp Metabolic Fee312 CL 104 mEq/L 09/15/2016 Comp Metabolic Uij851 CO2 27.0 mEq/L 09/15/2016 Comp Metabolic Erb389 ANION GAP 12 09/15/2016 Comp Metabolic Dsn545 GLUCOSE 105 mg/dL 09/15/2016 Comp Metabolic Duv921 Creat 0.9 mg/dL 09/15/2016 Comp Metabolic Rsm542 eGFR 67 ml/min/1.73m2 09/15/2016 Comp Metabolic Usu897 BUN 14 mg/dL 09/15/2016 Comp Metabolic Hbk824 B/C Ratio 15.7 Ratio 09/15/2016 Comp Metabolic Qqz559 CALCIUM 9.0 mg/dL 09/15/2016 Comp Metabolic Plx706 ALK PHOS 85 U/L 09/15/2016 Comp Metabolic Zkb699 AST(SGOT) 12 U/L 09/15/2016 Comp Metabolic Njh974 ALT(SGPT) 11 U/L 09/15/2016 Comp Metabolic Pqo825 BILI T 0.5 mg/dL 09/15/2016 Comp Metabolic Qvq789 ALBUMIN 3.4 g/dL 09/15/2016 Comp Metabolic Jqw228 TPRO 5.8 g/dL 09/15/2016 Comp Metabolic Xnp741 GLOB 2.4 g/dL 09/15/2016 Comp Metabolic Jkk932 A/G Ratio 1.4 Ratio 09/15/2016 Comp Metabolic Akk750 Osmo 278 mOsmo 09/15/2016 Vitamin D 25 Oh Ccq6515 VITAMIN D, 25 HYDROXY 25.95 ng/mL Lipid [...] 9.2 mg/dL 01/13/2016 Vitamin D 25 Oh Hnw2329 VITAMIN D, 25 HYDROXY 38.03 ng/mL Comp Metabolic Nrf049 NA 139 mEq/L 11/28/2015 Comp Metabolic Eud614 K 4.0 mEq/L 11/28/2015 Comp Metabolic Nvg249 CL 105 mEq/L 11/28/2015 Comp Metabolic Yvt376 CO2 25.0 mEq/L 11/28/2015 Comp Metabolic Aot703 ANION GAP 13 11/28/2015 Comp Metabolic Uwh234 GLUCOSE 100 mg/dL 11/28/2015 Comp Metabolic Jhx582 Creat 1.1 mg/dL 11/28/2015 Comp Metabolic Nvc053 eGFR 55 ml/min/1.73m2 11/28/2015 Comp Metabolic Ssu639 BUN 13 mg/dL 11/28/2015 Comp Metabolic Dli013 B/C Ratio 12.3 Ratio 11/28/2015 Comp Metabolic Pkk377 CALCIUM 9.2 mg/dL 11/28/2015 Comp Metabolic Tnh925 ALK PHOS 85 U/L 11/28/2015 Comp Metabolic Jom469 AST(SGOT) 15 U/L 11/28/2015 Comp Metabolic Alv573 ALT(SGPT) 15 U/L 11/28/2015 Comp Metabolic Ivz986 BILI T 0.5 mg/dL 11/28/2015 Comp Metabolic Bgx113 ALBUMIN 3.7 g/dL 11/28/2015 Comp Metabolic Vvl003 TPRO 6.4 g/dL 11/28/2015 Comp Metabolic Qsj435 GLOB 2.7 g/dL 11/28/2015 Comp Metabolic Idp116 A/G Ratio 1.4 Ratio 11/28/2015 Comp Metabolic Hbo862 Osmo 278 mOsmo 11/28/2015 Tsh Ord6 hTSH II 1.98 uIU/mL 11/28/2015 Free T4 Vwe077 FREE T4 1.04 ng/dL 11/28/2015 Cbc With [...] 30.9 pg 11/28/2015 Cbc With Differential Ord2 [place]% 6.7 % 11/28/2015 Cbc With Differential Ord2 [...] 2.19 K/ul 11/28/2015 Cbc With Differential Ord2 [place] ABS# 0.6 K/ul 11/28/2015 Cbc With Differential Ord2 Eos ABS# 0.1 K/ul 11/28/2015 Cbc With Differential Ord2 Baso ABS# 0.1 K/ul 11/28/2015 Comp Metabolic Ruq406 NA 135 mEq/L 10/15/2015 Comp Metabolic Rjf036 K 3.5 mEq/L 10/15/2015 Comp Metabolic Wid014 CL 100 mEq/L 10/15/2015 Comp Metabolic Qcy397 CO2 29.0 mEq/L 10/15/2015 Comp Metabolic Iwm170 ANION GAP 10 10/15/2015 Comp Metabolic Ckg934 GLUCOSE 88 mg/dL 10/15/2015 Comp Metabolic Iko892 Creat 0.9 mg/dL 10/15/2015 Comp Metabolic Xug749 eGFR 67 ml/min/1.73m2 10/15/2015 Comp Metabolic Pvf296 BUN 16 mg/dL 10/15/2015 Comp Metabolic Gkh171 B/C Ratio 17.8 Ratio 10/15/2015 Comp Metabolic Mhj208 CALCIUM 9.4 mg/dL 10/15/2015 Comp Metabolic Ipn027 ALK PHOS 96 U/L 10/15/2015 Comp Metabolic Zcp189 AST(SGOT) 15 U/L 10/15/2015 Comp Metabolic Jxk526 ALT(SGPT) -125 U/L 10/15/2015 Comp Metabolic Ibz260 BILI T 0.4 mg/dL 10/15/2015 Comp Metabolic Bhs436 ALBUMIN 4.2 g/dL 10/15/2015 Comp Metabolic Jlb578 TPRO 7.2 g/dL 10/15/2015 Comp Metabolic Jrr447 GLOB 3.1 g/dL 10/15/2015 Comp Metabolic Kws356 A/G Ratio 1.4 Ratio 10/15/2015 Comp Metabolic Mvz225 Osmo 271 mOsmo 10/15/2015 Comp Metabolic Mlh145 NA 135 mEq/L 10/15/2015 Comp Metabolic Cpw435 K 3.5 mEq/L 10/15/2015 Comp Metabolic Ypf937 CL 100 mEq/L 10/15/2015 Comp Metabolic Vsj113 CO2 29.0 mEq/L 10/15/2015 Comp Metabolic Xmy358 ANION GAP 10 10/15/2015 Comp Metabolic Yzw177 GLUCOSE 88 mg/dL 10/15/2015 Comp Metabolic Iaj933 Creat 0.9 mg/dL 10/15/2015 Comp Metabolic Qlr973 eGFR 67 ml/min/1.73m2 10/15/2015 Comp Metabolic Riu447 BUN 16 mg/dL 10/15/2015 Comp Metabolic Eba880 B/C Ratio 17.8 Ratio 10/15/2015 Comp Metabolic Lab410 CALCIUM 9.4 mg/dL 10/15/2015 Comp Metabolic Zwo491 ALK PHOS 96 U/L 10/15/2015 Comp Metabolic Aff776 AST(SGOT) 15 U/L 10/15/2015 Comp Metabolic Udf190 ALT(SGPT) 14 U/L 10/15/2015 Comp Metabolic Xtp040 BILI T 0.4 mg/dL 10/15/2015 Comp Metabolic Tdf749 ALBUMIN 4.2 g/dL 10/15/2015 Comp Metabolic Dwn328 TPRO 7.2 g/dL 10/15/2015 Comp Metabolic Bhd583 GLOB 3.1 g/dL 10/15/2015 Comp Metabolic Zud887 A/G Ratio 1.4 Ratio 10/15/2015 Comp Metabolic Nsg082 Osmo 271 mOsmo 10/15/2015 Magnesium Ord90 Mag 2.2 mg/dL 10/15/2015 Magnesium Ord90 Mag 1.9 mg/dL 09/05/2015 Comp Metabolic Lea888 NA 138 mEq/L 09/05/2015 Comp Metabolic Atc606 K 3.7 mEq/L 09/05/2015 Comp Metabolic Jjq412 CL 99 mEq/L 09/05/2015 Comp Metabolic Jxd309 CO2 30.0 mEq/L 09/05/2015 Comp Metabolic Lhw270 ANION GAP 13 09/05/2015 Comp Metabolic Oii911 GLUCOSE 97 mg/dL 09/05/2015 Comp Metabolic Vsw215 Creat 1.1 mg/dL 09/05/2015 Comp Metabolic Dtu971 eGFR 54 ml/min/1.73m2 09/05/2015 Comp Metabolic Zjw894 BUN 18 mg/dL 09/05/2015 Comp Metabolic Tcm309 B/C Ratio 16.7 Ratio 09/05/2015 Comp Metabolic Rxz620 CALCIUM 9.6 mg/dL 09/05/2015 Comp Metabolic Vdm061 ALK PHOS 96 U/L 09/05/2015 Comp Metabolic Fcr119 AST(SGOT) 15 U/L 09/05/2015 Comp Metabolic Wwt820 ALT(SGPT) 14 U/L 09/05/2015 Comp Metabolic Ghy406 BILI T 0.5 mg/dL 09/05/2015 Comp Metabolic Ttx127 ALBUMIN 4.1 g/dL 09/05/2015 Comp Metabolic Ays865 TPRO 7.0 g/dL 09/05/2015 Comp Metabolic Mkp819 GLOB 3.0 g/dL 09/05/2015 Comp Metabolic Ipx575 A/G Ratio 1.4 Ratio 09/05/2015 Comp Metabolic Kas203 Osmo 277 mOsmo 09/05/2015 Vitamin D 25 Oh Oda5630 VITAMIN D, 25 HYDROXY 22.39 ng/mL Magnesium Ord90 Mag 2.0 mg/dL 06/11/2015 Tsh Ord6 hTSH II 3.52 uIU/mL 06/11/2015 Comp Metabolic Xjw019 NA 135 mEq/L 06/11/2015 Comp Metabolic Ycd624 K 4.3 mEq/L 06/11/2015 Comp Metabolic Tvi226 CL 103 mEq/L 06/11/2015 Comp Metabolic Xqi570 CO2 25.0 mEq/L 06/11/2015 Comp Metabolic Yrh936 ANION GAP 11 06/11/2015 Comp Metabolic Erw217 GLUCOSE 75 mg/dL 06/11/2015 Comp Metabolic Xqo524 Creat 0.9 mg/dL 06/11/2015 Comp Metabolic Vqf631 eGFR 69 ml/min/1.73m2 06/11/2015 Comp Metabolic Wcm263 BUN 22 mg/dL 06/11/2015 Comp Metabolic Udm263 B/C Ratio 25.3 Ratio 06/11/2015 Comp Metabolic Xqa184 CALCIUM 9.2 mg/dL 06/11/2015 Comp Metabolic Qdc997 ALK PHOS 88 U/L 06/11/2015 Comp Metabolic Khk622 AST(SGOT) 13 U/L 06/11/2015 Comp Metabolic Jjs695 ALT(SGPT) 15 U/L 06/11/2015 Comp Metabolic Lgi336 BILI T 0.4 mg/dL 06/11/2015 Comp Metabolic Wsf007 ALBUMIN 3.7 g/dL 06/11/2015 Comp Metabolic Mbm945 TPRO 6.6 g/dL 06/11/2015 Comp Metabolic Kio698 GLOB 2.9 g/dL 06/11/2015 Comp Metabolic Qxm308 A/G Ratio 1.3 Ratio 06/11/2015 Comp Metabolic Xdw709 Osmo 272 mOsmo 06/11/2015 Free T4 Ngw570 FREE T4 0.95 ng/dL 06/11/2015 Cbc With [...] 31.3 pg 06/11/2015 Cbc With Differential Ord2 [place]% 7.4 % 06/11/2015 Cbc With Differential Ord2 [...] 2.57 K/ul 06/11/2015 Cbc With Differential Ord2 [place] ABS# 0.9 K/ul 06/11/2015 Cbc With Differential [...] 13.8 % 11/16/2014 Vitamin D 25 Oh Nty2641 VITAMIN D, 25 HYDROXY 22.85 ng/mL Lipid Ord30 CHOL 206 mg/dL 11/16/2014 Lipid Ord30 HDL 49.0 mg/dl 11/16/2014 Lipid Ord30 TRIG 104 mg/dL 11/16/2014 Lipid Ord30 LDL 136 mg/dL 11/16/2014 Lipid Ord30 C/HDL 4.2 Ratio 11/16/2014 Tsh Ord6 hTSH II 2.05 uIU/mL 11/16/2014 Comp Metabolic Yao219 NA 138 mEq/L 11/16/2014 Comp Metabolic Zvl163 K 4.0 mEq/L 11/16/2014 Comp Metabolic Uht090 CL 104 mEq/L 11/16/2014 Comp Metabolic Scc568 CO2 27.0 mEq/L 11/16/2014 Comp Metabolic Flv880 ANION GAP 11 11/16/2014 Comp Metabolic Ufi990 GLUCOSE 94 mg/dL 11/16/2014 Comp Metabolic Ymf604 Creat 0.9 mg/dL 11/16/2014 Comp Metabolic Zoe885 eGFR 64 ml/min/1.73m2 11/16/2014 Comp Metabolic Zhb830 BUN 12 mg/dL 11/16/2014 Comp Metabolic Anf605 B/C Ratio 12.9 Ratio 11/16/2014 Comp Metabolic Anq786 CALCIUM 9.4 mg/dL 11/16/2014 Comp Metabolic Fir178 ALK PHOS 88 U/L 11/16/2014 Comp Metabolic Xho021 AST(SGOT) 14 U/L 11/16/2014 Comp Metabolic Ifa383 ALT(SGPT) 12 U/L 11/16/2014 Comp Metabolic Whl014 BILI T 0.6 mg/dL 11/16/2014 Comp Metabolic Anq388 ALBUMIN 3.7 g/dL 11/16/2014 Comp Metabolic Pah087 TPRO 6.3 g/dL 11/16/2014 Comp Metabolic Fjb284 GLOB 2.6 g/dL 11/16/2014 Comp Metabolic Azf243 A/G Ratio 1.4 Ratio 11/16/2014 Comp Metabolic Lzn679 Osmo 275 mOsmo 11/16/2014 %Hba1C Ikf059 % HbA1c 78253-1 5.7 % 11/16/2014 %Hba1C Kpk852 Gluc Ave 117 mg/dL 11/16/2014 GFR CALC 6914930 GFR AA >60 ML/MIN 04/12/2013 GFR CALC 0244461 GFR NON-AA >60 ML/MIN 04/12/2013 TSH 4850622 TSH 2.194 uIU/ML 04/12/2013 VIT B 12 7287376 VIT B 12 415 PG/ML 04/12/2013 CBC 8370153 WBC 8.8 10e9/L 04/12/2013 CBC 0980666 RBC 4.59 10e12/L 04/12/2013 CBC 6152930 HGB 14.3 g/dL 04/12/2013 CBC 0416289 HCT DET 42.4 % 04/12/2013 CBC 9872418 MCV 92.4 fL 04/12/2013 CBC 2626212 MCH 31.2 pg 04/12/2013 CBC 7570224 MCHC 33.7 g/dL 04/12/2013 CBC 5374311 PLT 213 10e9/L 04/12/2013 CBC 7874032 MPV 12.8 fL 04/12/2013 CBC 9994940 LULU % 61.8 % 04/12/2013 CBC 8961117 LY % 29.2 % 04/12/2013 CBC 7705853 MON % 7.2 % 04/12/2013 CBC 3085117 EOS % 1.3 % 04/12/2013 CBC 0085793 BASO % 0.5 % 04/12/2013 CBC 6781842 RDW 12.6 % 04/12/2013 CBC 5300715 ABS LULU 5.44 10e9/L 04/12/2013 CBC 7538104 ABS LYMPH 2.57 10e9/L 04/12/2013 CBC 1711342 ABS MONO 0.63 10e9/L 04/12/2013 CBC 1326994 ABS EOS 0.11 10e9/L 04/12/2013 CBC 0321064 ABS BASO 0.04 10e9/L 04/12/2013 CBC 1728282 RDW-SD 41.3 fL 04/12/2013 FREE T4 1089709 FREE T4 1.09 NG/DL 04/12/2013 A1C HPLC 2932504 A1C HPLC 21572-9 5.4 % 04/12/2013 CHEM 14 0378740 AST 12 U/L 04/12/2013 CHEM 14 2713239 ALT 11 IU/L 04/12/2013 CHEM 14 4472545 BUN 14 MG/DL 04/12/2013 CHEM 14 4593752 ALBUMIN 4.1 GM/DL 04/12/2013 CHEM 14 9899693 CHLORIDE 105 MMOL/L 04/12/2013 CHEM 14 1250804 BILI TOT 0.6 MG/DL 04/12/2013 CHEM 14 1705829 ALK PHOS 81 U/L 04/12/2013 CHEM 14 7913500 SODIUM 138 MMOL/L 04/12/2013 CHEM 14 5019995 CREATININE 0.86 MG/DL 04/12/2013 CHEM 14 9997023 CALCIUM 9.8 MG/DL 04/12/2013 CHEM 14 2311686 POTASSIUM 4.1 MMOL/L 04/12/2013 CHEM 14 4180793 PROT TOT 6.6 GM/DL 04/12/2013 CHEM 14 1187199 GLUCOSE 112 MG/DL 04/12/2013 CHEM 14 8849676 BICARB 27 MMOL/L 04/12/2013 CHEM 14 4385115 ANION GAP 6 MEQ/L 04/12/2013 LIPID GRP HDL TEST 55 MG/DL 04/12/2013 LIPID GRP TRIG 107 MG/DL 04/12/2013 LIPID GRP 4365607 TEST LDL 193 MG/DL 04/12/2013 LIPID GRP CHOL 269 MG/DL 04/12/2013 LIPID GRP RCHOL/HDL 4.89 RATIO 04/12/2013 NICOT QN S 0818863 NICOTIN S < 2.0 NG/ML 03/07/2012 NICOT QN S 2414089 XCOTININ S < 2.0 NG/ML 03/07/2012 CBC 0480063 WBC 8.1 10e9/L 03/02/2012 CBC 1183229 RBC 4.44 10e12/L 03/02/2012 CBC 7332903 HGB 13.8 g/dL 03/02/2012 CBC 0213637 HCT DET 41.3 % 03/02/2012 CBC 1461637 MCV 93.0 fL 03/02/2012 CBC 1148562 MCH 31.1 pg 03/02/2012 CBC 8897428 MCHC 33.4 g/dL 03/02/2012 CBC 8154508 PLT 188 10e9/L 03/02/2012 CBC 3506711 MPV 14.3 fL 03/02/2012 CBC 8643535 LULU % 61.5 % 03/02/2012 CBC 4690859 LY % 28.8 % 03/02/2012 CBC 1371842 MON % 8.0 % 03/02/2012 CBC 3152307 EOS % 1.1 % 03/02/2012 CBC 9120793 BASO % 0.6 % 03/02/2012 CBC 5328864 RDW 14.0 % 03/02/2012 CBC 6462094 ABS LULU 4.98 10e9/L 03/02/2012 CBC 9629731 ABS LYMPH 2.33 10e9/L 03/02/2012 CBC 4878934 ABS MONO 0.65 10e9/L 03/02/2012 CBC 2103955 ABS EOS 0.09 10e9/L 03/02/2012 CBC 1153740 ABS BASO 0.05 10e9/L 03/02/2012 CBC 1708690 RDW-SD 46.3 fL 03/02/2012 LIPID GRP HDL TEST 37 MG/DL 03/02/2012 LIPID GRP TRIG 136 MG/DL 03/02/2012 LIPID GRP TEST LDL 106 MG/DL 03/02/2012 LIPID GRP CHOL 170 MG/DL 03/02/2012 LIPID GRP RCHOL/HDL 4.59 RATIO 03/02/2012 GFR CALC 2032211 GFR AA >60 ML/MIN 03/02/2012 GFR CALC 8243802 GFR NON-AA >60 ML/MIN 03/02/2012 FREE T4 3026307 FREE T4 1.09 NG/DL 03/02/2012 A1C HPLC 2310236 A1C HPLC 94452-3 5.4 % 03/02/2012 CHEM 14 7664965 AST 17 U/L 03/02/2012 CHEM 14 20270820 ALT 22 IU/L 03/02/2012 CHEM 14 5319919 BUN 15 MG/DL 03/02/2012 CHEM 14 1993937 ALBUMIN 4.0 GM/DL 03/02/2012 CHEM 14 7469569 CHLORIDE 107 MMOL/L 03/02/2012 CHEM 14 8955976 BILI TOT 0.4 MG/DL 03/02/2012 CHEM 14 2552588 ALK PHOS 83 U/L 03/02/2012 CHEM 14 9843434 SODIUM 141 MMOL/L 03/02/2012 CHEM 14 9840698 CREATININE 0.86 MG/DL 03/02/2012 CHEM 14 2113803 CALCIUM 9.5 MG/DL 03/02/2012 CHEM 14 0701189 POTASSIUM 4.0 MMOL/L 03/02/2012 CHEM 14 9373439 PROT TOT 6.6 GM/DL 03/02/2012 CHEM 14 8135977 GLUCOSE 102 MG/DL 03/02/2012 CHEM 14 3888173 BICARB 28 MMOL/L 03/02/2012 CHEM 14 7718924 ANION GAP 6 MEQ/L 03/02/2012 TSH 7886488 TSH 2.320 uIU/ML 03/02/2012 GFR CALC 7911423 GFR AA >60 ML/MIN 07/03/2011 GFR CALC 6982443 GFR NON-AA 54.0L ML/MIN 07/03/2011 CHEM 14 2433862 AST 15 U/L 07/03/2011 CHEM 14 0773608 ALT 30 IU/L 07/03/2011 CHEM 14 4690656 BUN 19 MG/DL 07/03/2011 CHEM 14 2805076 ALBUMIN 4.2 GM/DL 07/03/2011 CHEM 14 6558591 CHLORIDE 100 MMOL/L 07/03/2011 CHEM 14 4872977 BILI TOT 0.8 MG/DL 07/03/2011 CHEM 14 4274120 ALK PHOS 74 U/L 07/03/2011 CHEM 14 4493614 SODIUM 137 MMOL/L 07/03/2011 CHEM 14 2693423 CREATININE 1.03 MG/DL 07/03/2011 CHEM 14 7083466 CALCIUM 9.6 MG/DL 07/03/2011 CHEM 14 3436939 POTASSIUM 4.4 MMOL/L 07/03/2011 CHEM 14 2255550 PROT TOT 6.7 GM/DL 07/03/2011 CHEM 14 7378187 GLUCOSE 106 MG/DL 07/03/2011 CHEM 14 2147415 BICARB 28 MMOL/L 07/03/2011 CHEM 14 4847883 ANION GAP 9 MEQ/L 07/03/2011 URINALYSIS NONAUTO W/O SCOPE 49401 Specific Camino 1.010 DateTime(Free Text in Aprima) URINALYSIS NONAUTO W/O SCOPE 97314 PH 5 DateTime(Free Text in Aprima) URINALYSIS NONAUTO W/O SCOPE 48913 GLUCOSE neg DateTime( Free Text in Aprima) URINALYSIS NONAUTO W/O SCOPE 62381 Protein neg DateTime( Free Text in Aprima) URINALYSIS NONAUTO W/O SCOPE 82914 Blood 1+ DateTime(Free Text in Aprima) URINALYSIS NONAUTO W/O SCOPE 69343 Bilirubin neg DateTime(Free Text in Aprima) URINALYSIS NONAUTO W/O SCOPE 35014 Ketones neg DateTime( Free Text in Aprima) URINALYSIS NONAUTO W/O SCOPE 78143 Urobilinogen neg DateTime(Free Text in Aprima) URINALYSIS NONAUTO W/O SCOPE 14261 Nitrite neg DateTime( Free Text in Aprima) URINALYSIS NONAUTO W/O SCOPE 86510 Leukocytes neg DateTime(Free Text in Aprima) Review [...] clear 12/21/2011 None Full Exam - General 1995 Eyes conjunctiva /eyelids Overall: cornea clear 12/21/2011 [...] normal 06/16/2011 None Full Exam - General 1995 Ears/Nose/Throat external ear Overall: normal appearance 06/16/2011 None Full Exam - General 1995 Ears/Nose/Throat external ear Overall: no masses 06/16/2011 None Full Exam - General 1995 Ears/Nose/Throat external ear Overall: normal mastoids 06/16/2011 None Full Exam - General 1995 Ears/Nose/Throat external nose Overall: benign appearance 06/16/2011 [...] Codes Date URINALYSIS NONAUTO W/O SCOPE CPT-4: 53582 01/20/2018 ADMIN INFLUENZA VIRUS VAC CPT-4: G0008 11/03/2017 FLU VACC PRSV FREE INC ANTIG CPT-4: 10003 11/03/2017 PPPS, SUBSEQ VISIT CPT -4: G0439 04/26/2017 ADMIN PNEUMOCOCCAL VACCINE SNOMED CT: [id number] CPT-4: G0009 03/15/2017 Pneumococcal Polysaccharide Vaccine, 23-Valent, Ad CPT-4: 69159 03/15/2017 URINALYSIS NONAUTO W/O SCOPE CPT-4: 28644 12/31/2016 ADMIN INFLUENZA VIRUS VAC CPT-4: G0008 11/03/2016 FLU VACC PRSV FREE INC ANTIG CPT-4: 29459 11/03/2016 URINALYSIS NONAUTO W/O SCOPE CPT-4: 65484 10/29/2016 PPPS, INITIAL VISIT CPT-4: G0438 12/09/2015 ADMIN INFLUENZA VIRUS VAC CPT-4: G0008 11/13/2015 FLU VACC PRSV FREE INC ANTIG Formatting Model/CDA Sections, Assigned to/Isabel Arrington CPT-4: 47148Wljibyz 11/13/2015 URINALYSIS NONAUTO W/O SCOPE CPT-4: 71056 09/24/2015 THER/PROPH/DIAG INJ SC/IM CPT-4: 58872 09/13/2015 VITAMIN B12 INJECTION CPT-4: J3420 09/13/2015 URINALYSIS NONAUTO W/O SCOPE CPT-4: 19557 08/05/2015 URINALYSIS NONAUTO W/O SCOPE CPT-4: 77582 06/12/2015 TRIAMCINOLONE ACET INJ NOS CPT-4: J3301 03/27/2015 THER/PROPH/DIAG INJ SC/IM CPT-4: 61740 12/24/2014 PNEUMOCOCCAL VACC [address]: 29700351 CPT-4: 43494 12/24/2014 TRIAMCINOLONE ACET INJ NOS CPT-4: J3301 12/11/2014 INITIAL PREVENTIVE EXAM CPT-4: G0402 12/04/2014 SCREENINGMAMMOGRAPHYDIGITAL CPT-4: G0202 12/04/2014 ADMIN INFLUENZA VIRUS VAC CPT-4: G0008 11/22/2014 FLU VACC 4 SUZETTE 3 Y[address] IM SNOMED CT: 70863847 CPT-4: 73344 11/22/2014 URINALYSIS NONAUTO W/O SCOPE CPT-4: 96658 11/08/2014 URINALYSIS NONAUTO W/O SCOPE CPT-4: 47771 07/30/2014 TRIAMCINOLONE ACET INJ NOS CPT-4: J3301 04/14/2013 ROUTINE VENIPUNCTURE CPT-4: 63582 04/12/2013 INJ TRIGGER POINT 1/2 MUSCL CPT-4: 48658 01/05/2013 TRIAMCINOLONE ACET INJ NOS CPT-4: J3301 04/11/2012 THER/PROPH/DIAG INJ SC/IM CPT-4: 99952 03/09/2012 THER/PROPH/DIAG INJ SC/IM CPT-4: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
[2018-06-03 08:22] VITALS: BP 143/75
--- OUTSIDE RECORDS SUMMARY | 2018-06-03 08:23 | XMS REPORT | CCD ---
Author Author [facility] Address [address] [place] [address] Phone Care Team Providers Care [employer] Grinder Name Role Phone PP Unavailable CCM Unavailable Summary Purpose Interface Exchange Insurance Providers Payer name Policy type / Coverage type Covered libertarian ID Effective Begin Date Effective End Date WPS Medicare Part B [id number] 2017 Unknown [facility] [employer] [facility] [id number] Unknown Family history Father Diagnosis Age At Onset No Family Disease Entered N/A Runs in the family Diagnosis Age At Onset Diabetes Unknown Mother Diagnosis Age At Onset No Family Disease Entered N/A Social History Social History Element Codes Description Effective Dates Employment 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 Active 03/17/2011 Unknown Obesity [...] Dates Condition Status Encounter for immunization ICD-9: V04.81 ICD-10: Z23 [...] specified ICD-9: 599.0 ICD-10: N39.0 12/31/2016 Active Other injury of unspecified body region [...] SINUSITIS ICD-9 : 461.9 03/17/2011 Active 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 03/17/2011 Active Obesity ICD-9: [...] Fill Instructions Macrobid 100 mg capsule RxNorm: 542094 1 Capsule(s) PO BID 01/06/2018 Active Macrobid 100 mg capsule RxNorm: 170932 1 Capsule(s) PO BID 12/30/2017 Inactive ondansetron 4 mg disintegrating tablet RxNorm: 014960 1 Tablet(s) PO Q4 PRN 10/22/2017 No Stop Date Active Xanax 0.25 mg tablet RxNorm: 999765 Tablet(s) PO TAKE ONE TABLET BY MOUTH EVERY 4 TO 6 HOURS NEEDED 07/29/20172017 Inactive Levaquin 500 mg tablet RxNorm: 945424 1 Tablet(s) PO daily 07/14/2017 Inactive Levaquin 500 mg tablet RxNorm: 416192 1 Tablet(s) PO daily 07/21/2017 Inactive Xarelto 20 mg tablet RxNorm: 8356811 1 Tablet(s) PO daily 06/2812/24/2017 Inactive potassium chloride ER 10 mEq tablet,extended release RxNorm: 833544 2 Capsule(s) PO BID 06/28/2017 12/24/2017 Inactive Xarelto 20 mg tablet RxNorm: 6498149 1 Tablet(s) PO daily 06/2806/27/2017 Inactive potassium chloride ER 10 mEq tablet,extended release RxNorm: 034789 2 Capsule(s) PO BID 06/28/2017 06/27/2017 Inactive prednisone 10 mg tablet RxNorm: 747102 Tablet(s) PO UD 2017 No Stop Date Active 6,5,4,3,2,1 Vitamin D2 50,000 unit capsule RxNorm: 851290 1 Capsule(s) PO QW 04/26/2017 07/24/2017 Inactive Lexapro 10 mg tablet RxNorm: 731615 1 Tablet(s) PO QHS 201601/11/2017 Inactive Lexapro 10 mg tablet RxNorm: 516182 1 Tablet(s) PO QHS 201604/25/2017 Inactive famotidine 20 mg tablet RxNorm: 118040 1 Tablet(s) PO BID 01/0601/05/2017 Inactive famotidine 20 mg tablet RxNorm: 615538 1 Tablet(s) PO BID 01/0604/25/2017 Inactive doxazosin 2 mg tablet RxNorm: 443347 TAKE ONE-HALF TABLET BY MOUTH TWICE DAILY 12/17/2016 04/25/2017 Inactive Xanax 0.25 mg tablet RxNorm: 725326 Tablet(s) PO TAKE ONE TABLET BY MOUTH EVERY 4 TO 6 HOURS NEEDED 11/12/20162016 Inactive Xanax 0.25 mg tablet RxNorm: 691829 Tablet(s) PO TAKE ONE TABLET BY MOUTH EVERY 4 TO 6 HOURS NEEDED 11/12/20162016 Inactive Levaquin 500 mg tablet RxNorm: 572519 1 Tablet(s) PO daily 10/28/2016 Inactive Levaquin 500 mg tablet RxNorm: 709245 1 Tablet(s) PO daily 11/04/2016 Inactive Pyridium 200 mg tablet RxNorm: 2479550 1 Tablet(s) PO TID PRN 10/29/2016 04/25/2017 Inactive potassium chloride ER 10 mEq tablet,extended release RxNorm: 948945 2 Capsule(s) PO BID 10/20/2016 02/16/2017 Inactive potassium chloride ER 10 mEq tablet,extended release RxNorm: 351222 2 Capsule(s) PO BID 10/16/2016 10/19/2016 Inactive potassium chloride ER 10 mEq tablet,extended release RxNorm: 044437 1 Capsule(s) PO daily 10/15/2016 10/15/2016 Inactive potassium chloride 40 mEq/15 mL oral liquid RxNorm: 665330 7.5 Milliliter(s) PO BID 10/05/2016 10/11/2016 Inactive potassium chloride 40 mEq/15 mL oral liquid RxNorm: 579871 7.5 Milliliter(s) PO BID 10/05/2016 10/04/2016 Inactive potassium chloride 40 mEq/15 mL oral liquid RxNorm: 088460 7.5 Milliliter(s) PO BID 10/05/2016 10/04/2016 Inactive doxycycline hyclate 100 mg tablet RxNorm: 990151 1 Tablet(s) PO BID 09/30/2016 10/09/2016 Inactive Vitamin D2 50,000 unit capsule RxNorm: 577667 1 Capsule(s) PO QW 09/15/2016 09/14/2016 Inactive Vitamin D2 50,000 unit capsule RxNorm: 201417 1 Capsule(s) PO QW 09/15/2016 12/13/2016 Inactive doxycycline hyclate 100 mg tablet RxNorm: 335202 1 Tablet(s) PO BID 08/11/2016 08/24/2016 Inactive doxycycline hyclate 100 mg tablet RxNorm: 549481 1 Tablet(s) PO BID 07/24/2016 07/28/2016 Inactive mupirocin 2 % topical ointment RxNorm: 763452 1 Application TOP BID 07/24/2016 07/23/2016 Inactive mupirocin 2 % topical ointment RxNorm: 364103 1 Application TOP BID 07/24/2016 07/30/2016 Inactive doxycycline hyclate 100 mg tablet RxNorm: 857465 1 Tablet(s) PO BID 07/24/2016 07/23/2016 Inactive potassium chloride ER 10 mEq tablet,extended release RxNorm: 932569 2 Tablet(s) PO BID 07/20/2016 10/04/2016 Inactive Lasix 20 mg tablet RxNorm: 351768 1 Tablet(s) PO PRN 2016 No Stop Date Active PRN for swelling Xanax 0.25 mg tablet RxNorm: 970284 Tablet(s) PO TAKE ONE TABLET BY MOUTH EVERY 4 TO 6 HOURS NEEDED 06/19/20162016 Inactive prednisone 20 mg tablet RxNorm: 074438 1 Tablet(s) PO BID 06/0306/07/2016 Inactive potassium chloride ER 10 mEq tablet,extended release RxNorm: 178974 2 Tablet(s) PO BID 05/06/2016 05/05/2016 Inactive potassium chloride ER 10 mEq tablet,extended release RxNorm: 593833 2 Tablet(s) PO BID 05/06/2016 06/04/2016 Inactive Levaquin 500 mg tablet RxNorm: 348200 1 Tablet(s) PO daily 03/30/2016 Inactive Levaquin 500 mg tablet RxNorm: 372104 1 Tablet(s) PO daily 04/06/2016 Inactive prednisone 20 mg tablet RxNorm: 491346 1 Tablet(s) PO BID 02/2402/29/2016 Inactive prednisone 20 mg tablet RxNorm: 602681 1 Tablet(s) PO BID 02/2402/24/2016 Inactive Flonase 50 mcg/actuation nasal spray,suspension RxNorm: 1751763 2 [place] NASAL daily 02/18/2016 02/27/2016 Inactive doxycycline hyclate 100 mg tablet RxNorm: 508301 1 Tablet(s) PO BID 02/18/2016 02/27/2016 Inactive doxycycline hyclate 100 mg tablet RxNorm: 542698 1 Tablet(s) PO BID 02/18/2016 02/17/2016 Inactive cyclobenzaprine 5 mg tablet RxNorm: 436309 1-2 Tablet(s) PO TID as needed 02/12/2016 02/21/2016 Inactive cyclobenzaprine 5 mg tablet RxNorm: 294406 1-2 Tablet(s) PO TID as needed 02/12/2016 02/11/2016 Inactive Xanax 0.25 mg tablet RxNorm: 350961 Tablet(s) PO TAKE ONE TABLET BY MOUTH EVERY 4 TO 6 HOURS NEEDED 01/20/20162016 Inactive (Appended: Controlled substance eRx refill - RxReferenceNumber: [id number]) metoprolol tartrate 25 mg tablet RxNorm: 495869 1/2 Tablet(s) PO BID 12/13/2015 04/10/2016 Inactive doxazosin 2 mg tablet RxNorm: 725680 1 Tablet(s) PO QHS 201512/16/2016 Inactive metoprolol tartrate 25 mg tablet RxNorm: 080120 1/2 Tablet(s) PO BID 12/09/2015 12/12/2015 Inactive Vitamin D2 50,000 unit capsule RxNorm: 102122 1 Capsule(s) PO QW 12/09/2015 02/06/2016 Inactive Lasix 20 mg tablet RxNorm: 487078 1 Tablet(s) PO PRN 201507/05/2016 Inactive PRN for swelling potassium chloride ER 20 mEq tablet,extended release RxNorm: 772951 1 Tablet(s) PO daily as needed When taking lasix 10/03/2015 04/26/2016 Inactive cyanocobalamin (vit B-12) 1,000 mcg/mL injection solution RxNorm: 409645 Milliliter(s) Inj 09/13/2015 09/13/2015 Inactive doxycycline hyclate 100 mg tablet RxNorm: 798218 1 Tablet(s) PO BID 09/12/2015 09/18/2015 Inactive potassium chloride ER 10 mEq tablet,extended release RxNorm: 830566 1 Tablet(s) PO daily as needed When taking lasix 09/04/2015 10/02/2015 Inactive Lasix 20 mg tablet RxNorm: 585689 1 Tablet(s) PO PRN 201510/02/2015 Inactive PRN for swelling doxycycline hyclate 100 mg tablet RxNorm: 575233 1 Tablet(s) PO BID 08/26/2015 08/25/2015 Inactive doxycycline hyclate 100 mg tablet RxNorm: 737183 1 Tablet(s) PO BID 08/26/2015 09/01/2015 Inactive mupirocin 2 % topical ointment RxNorm: 793445 1 Application TOP BID 08/02/2015 08/01/2015 Inactive mupirocin 2 % topical ointment RxNorm: 801763 1 Application TOP BID 08/02/2015 08/08/2015 Inactive metoprolol tartrate 50 mg tablet RxNorm: 940009 2 tabs in morning and 1 tablet at night dose PO as directed 06/13/201510/23 Inactive 2 tabs in the morning, and 1 in the evening Benicar 40 mg tablet RxNorm: 093871 1 Tablet(s) PO daily 201510/21/2015 Inactive Benicar 40 mg tablet RxNorm: 848259 1 Tablet(s) PO daily 201506/12/2015 Inactive Vitamin D2 50,000 unit capsule RxNorm: 640825 1 Capsule(s) PO QW 06/11/2015 12/07/2015 Inactive Xanax 0.25 mg tablet RxNorm: 952916 Tablet(s) PO TAKE ONE TABLET BY MOUTH EVERY 4 TO 6 HOURS NEEDED 06/06/20152015 Inactive (Appended: Controlled substance eRx refill - RxReferenceNumber: [id number]) Levaquin 500 mg tablet RxNorm: 087892 1 Tablet(s) PO daily 11/201510/28/2015 Inactive Kenalog 40 mg/mL suspension for injection RxNorm: 6381084 Milliliter(s) Inj 03/27/2015 03/27/2015 Inactive Kenalog 40 mg/mL suspension for injection RxNorm: 0854039 Milliliter(s) Inj 12/11/2014 12/11/2014 Inactive Vitamin D2 50,000 unit capsule RxNorm: 773402 1 Capsule(s) PO QW 12/05/2014 06/02/2015 Inactive [SAVINGS FOR NON-COVERED DRUGS -- BIN:[id number], PCN: ASPROD1, Group: XXXXX, ID# [id number], Questions: . THIS IS NOT INSURANCE.] Pradaxa 150 mg capsule RxNorm: 9686802 Capsule(s) PO BID 201409/08/2015 Inactive TAKE 1 CAPSULE BY MOUTH TWICE DAILY Vitamin D2 50,000 unit capsule RxNorm: 010639 1 Capsule(s) PO QW 12/04/2014 12/04/2014 Inactive [SAVINGS FOR NON-COVERED DRUGS -- BIN:741423, PCN: ASPROD1, Group: XXXXX, ID# [id number], Questions: . THIS IS NOT INSURANCE.] Lasix 20 mg tablet RxNorm: 243125 1 Tablet(s) PO PRN 201411/25/2014 Inactive PRN for swelling Levaquin 500 mg tablet RxNorm: 754232 1 Tablet(s) PO daily 01/201511/25/2014 Inactive Levaquin 500 mg tablet RxNorm: 647098 1 Tablet(s) PO daily 01/201512/02/2014 Inactive Lasix 20 mg tablet RxNorm: 488015 1 Tablet(s) PO PRN 201409/03/2015 Inactive PRN for swelling nitrofurantoin 100 mg capsule RxNorm: 634362 1 Capsule(s) PO BID 11/12/2014 11/17/2014 Inactive Macrobid 100 mg capsule RxNorm: 685004 1 Capsule(s) PO BID 11/18/2014 Inactive Macrobid 100 mg capsule RxNorm: 924223 1 Capsule(s) PO BID 11/11/2014 Inactive Levaquin 500 mg tablet RxNorm: 355917 1 Tablet(s) PO daily 11/11/2014 Inactive metoprolol tartrate 50 mg tablet RxNorm: 110441 2 tabs in morning and 1 tablet at night dose PO as directed 10/25/201405/21 Inactive 2 tabs in the morning, and 1 in the evening Xanax 0.25 mg tablet RxNorm: 097428 Tablet(s) PO TAKE ONE TABLET BY MOUTH EVERY 4 TO 6 HOURS NEEDED 08/30/20142014 Inactive (Appended: Controlled substance eRx refill - RxReferenceNumber: [id number]) Levaquin 500 mg tablet RxNorm: 528683 1 Tablet(s) PO daily 07/31/2014 Inactive Levaquin 500 mg tablet RxNorm: 410876 1 Tablet(s) PO daily 08/07/2014 Inactive Vitamin D2 50,000 unit capsule RxNorm: 571298 1 Capsule(s) PO QW 05/16/2014 2014 Inactive [SAVINGS FOR NON-COVERED DRUGS -- BIN:938665, PCN: ASPROD1, Group: XXXXX, ID# [id number], Questions: . THIS IS NOT INSURANCE.] Zithromax 500 mg tablet RxNorm: 305307 1 Tablet(s) PO daily 05/10/2014 Inactive Zithromax 500 mg tablet RxNorm: 273030 1 Tablet(s) PO daily 05/15/2014 Inactive [SAVINGS FOR NON-COVERED DRUGS -- BIN:767768, PCN: ASPROD1, Group: XXXXX, ID# [id number], Questions: . THIS IS NOT INSURANCE.] prednisone 20 mg tablet RxNorm: 231684 Tablet(s) PO 3daily x 2days, then 2daily x2days, then 1daily x2days, then 1/2 daily x 2days then stop 03/13/2014 2014 Inactive [SAVINGS FOR UNINSURED PATIENTS -- BIN:107772, PCN: ASPROD1, Group: [id number], ID# [id number], Process claim through [employer], for questions: [phone]. THIS IS NOT INSURANCE.] Levaquin 500 mg tablet RxNorm: 379884 1 Tablet(s) PO daily TAKE ONE TABLET BY MOUTH ONCE DAILY take with benadryl 03/13/2014 03/22/2014 Inactive [SAVINGS FOR UNINSURED PATIENTS -- BIN:878963, PCN: ASPROD1, Group: [id number], ID# [id number], Process claim through [employer], for questions: . THIS IS NOT INSURANCE.] Levaquin 500 mg tablet RxNorm: 136631 1 Tablet(s) PO daily TAKE ONE TABLET BY MOUTH ONCE DAILY take with benadryl 02/26/2014 03/07/2014 Inactive pt to fiber picker today 01/06/14 [SAVINGS FOR UNINSURED PATIENTS -- BIN:971485, PCN: ASPROD1, Group: [id number], ID# [id number], Process claim through [employer], for questions: [phone]. THIS IS NOT INSURANCE.] Xanax 0.25 mg tablet RxNorm: 830295 Tablet(s) PO TAKE ONE TABLET BY MOUTH EVERY 4 TO 6 HOURS NEEDED 02/05/20142013 Inactive (Appended: Controlled substance eRx refill - RxReferenceNumber: [id number]) prednisone 20 mg tablet RxNorm: 104545 2 Tablet(s) PO QAM 01/0601/10/2014 Inactive call pt when ready for fiber picker today 01/06/14 Levaquin 500 mg tablet RxNorm: 116814 1 Tablet(s) PO daily TAKE ONE TABLET BY MOUTH ONCE DAILY take with benadryl 01/06/2014 01/12/2014 Inactive pt to fiber picker today 01/06/14 prednisone 20 mg tablet RxNorm: 603794 Tablet(s) PO 3daily x 2days, then 2daily x2days, then 1daily x2days, then 1/2 daily x 2days then stop 12/13/2013 03/12/2014 Inactive Levaquin 500 mg tablet RxNorm: 292754 1 Tablet(s) PO daily TAKE ONE TABLET BY MOUTH ONCE DAILY take with benadryl 12/13/2013 12/19/2013 Inactive Vitamin D2 50,000 unit capsule RxNorm: 104126 1 Capsule(s) PO QW 12/12/2013 03/11/2014 Inactive weekly x 12 weeks Vitamin D2 50,000 unit capsule RxNorm: 400191 1 Capsule(s) PO QW 12/12/2013 12/11/2013 Inactive metoprolol tartrate 50 mg tablet RxNorm: 586660 2 tabs in morning and 1 tablet at night dose PO as directed 11/03/201305/31 Inactive 2 tabs in the morning, and 1 in the evening Bactroban 2 % topical ointment RxNorm: 101411 1 Application TOP BID 10/30/2013 11/08/2013 Inactive Bactroban 2 % topical ointment RxNorm: 046273 1 Application TOP BID 10/30/2013 10/29/2013 Inactive Lasix 40 mg tablet RxNorm: 274916 1 Tablet(s) PO daily as needed 10/23/2013 2014 Inactive metoprolol tartrate 50 mg tablet RxNorm: 652483 1 Tablet(s) PO BID 08/28/2013 09/26/2013 Inactive 2 tabs in the morning, and 1 in the evening metoprolol tartrate 50 mg tablet RxNorm: 747442 1 Tablet(s) PO BID 08/28/2013 08/27/2013 Inactive 2 tabs in the morning, and 1 in the evening Lasix 40 mg tablet RxNorm: 494505 1 Tablet(s) PO daily 201310/22/2013 Inactive Lasix 40 mg tablet RxNorm: 952206 1 Tablet(s) PO daily 201308/07/2013 Inactive potassium chloride ER 10 mEq tablet,extended release RxNorm: 423501 1 Tablet(s) PO BID 07/14/2013 2014 Inactive Lipitor 20 mg tablet RxNorm: 335127 1 Tablet(s) PO daily 201307/08/2014 Inactive generic ok Xanax 0.25 mg tablet RxNorm: 528294 Tablet(s) PO TAKE 1 TABLET BY MOUTH EVERY 4 TO 6 HOURS NEEDED 07/14/20132013 Inactive (Appended: Controlled substance eRx refill - RxReferenceNumber: [id number]|0|1) Xanax 0.25 mg tablet RxNorm: 531813 Tablet(s) PO TAKE ONE TABLET BY MOUTH EVERY 4 TO 6 HOURS NEEDED 07/14/20132013 Inactive (Appended: Controlled substance eRx refill - RxReferenceNumber: [id number]) metoprolol succinate ER 50 mg tablet,extended release 24 hr RxNorm: 037266 100mg q am 50 in even Tablet(s) PO 07/14/2013 Inactive Levaquin 500 mg tablet RxNorm: 863322 Tablet(s) PO TAKE ONE TABLET BY MOUTH ONCE DAILY 07/13/2013 12/12/2013 Inactive Levaquin 500 mg tablet RxNorm: 764194 Tablet(s) PO TAKE ONE TABLET BY MOUTH ONCE DAILY 07/13/2013 10/22/2013 Inactive Levaquin 500 mg tablet RxNorm: 942324 1 Tablet(s) PO daily 02/201305/22/2013 Inactive Levaquin 500 mg tablet RxNorm: 548256 1 Tablet(s) PO daily 05/15/2013 Inactive Lipitor 20 mg tablet RxNorm: 888241 1 Tablet(s) PO daily 201307/13/2013 Inactive generic ok Kenalog 40 mg/mL suspension for injection RxNorm: 9656194 1 Milliliter(s) Inj 04/14/2013 04/14/2013 Inactive Lipitor 20 mg tablet RxNorm: 392234 1 Tablet(s) PO daily 201304/16/2013 Inactive Lipitor 20 mg tablet RxNorm: 616218 1 Tablet(s) PO daily 201304/13/2013 Inactive metoprolol succinate ER 50 mg tablet,extended release 24 hr RxNorm: 620707 100mg q am 50 in even Tablet(s) PO 04/14/2013 Inactive Levaquin 500 mg tablet RxNorm: 159223 1 Tablet(s) PO daily 04/20/2013 Inactive Carafate 1 gram tablet RxNorm: 148176 1 Tablet(s) PO QID 201303/30/2013 Inactive Carafate 1 gram tablet RxNorm: 854594 1 Tablet(s) PO QID 201304/23/2013 Inactive Zithromax Z-Preston 250 mg tablet RxNorm: 354029 Tablet(s) PO zpack as directed 01/31/2013 04/12/2013 Inactive Zofran 4 mg tablet RxNorm: 623009 1 Tablet(s) PO Q6 PRN 12/0704/12/2013 Inactive Xanax 0.25 mg tablet RxNorm: 514404 Tablet(s) PO TAKE 1 TABLET BY MOUTH EVERY 4 TO 6 HOURS NEEDED 06/20/20122013 Inactive (Appended: Controlled substance eRx refill - RxReferenceNumber: [id number]|1|0|1) Xanax 0.25 mg tablet RxNorm: 063188 1 Tablet(s) PO Q4-6H q 4-6 hrs prn 06/20/2012 No Stop Date Active doxycycline monohydrate 100 mg tablet RxNorm: 139099 1 Tablet(s) PO BID 05/17/2012 05/26/2012 Inactive doxycycline monohydrate 100 mg tablet RxNorm: 646728 1 Tablet(s) PO BID 04/11/2012 04/20/2012 Inactive Kenalog 40 mg/mL Susp for Injection RxNorm: 7242561 1 Milliliter(s) Inj 04/11/2012 04/11/2012 Inactive metoprolol succinate ER 50 mg tablet,extended release 24 hr RxNorm: 649761 Tablet (s) PO TAKE 1 & 1/2 TABLETS BY MOUTH TWICE DAILY 02/01/2012 04/13/2013 Inactive Lipitor 40 mg tablet RxNorm: 947644 Tablet(s) PO TAKE 1 TABLET BY MOUTH EVERY DAY 02/01/2012 04/12/2013 Inactive Pradaxa 150 mg capsule RxNorm: 3241889 Capsule(s) PO 201112/03/2014 Inactive TAKE 1 CAPSULE BY MOUTH TWICE DAILY Xanax 0.25 mg tablet RxNorm: 256251 1 Tablet(s) PO Q4-6H q 4-6 hrs prn 12/28/2011 06/20/2012 Inactive metoprolol succinate ER 50 mg tablet,extended release 24 hr RxNorm: 430757 Tablet (s) PO 12/28/2011 01/31/2012 Inactive TAKE 1 & 1/2 TABLETS BY MOUTH TWICE DAILY Singulair 10 mg tablet RxNorm: 910955 Tablet(s) PO 12/28/2011 04/13/2013 Inactive TAKE ONE TABLET BY MOUTH DAILY clindamycin 150 mg capsule RxNorm: 159611 1 Capsule(s) PO QID 11/25/2011 12/01/2011 Inactive Influenza Virus Vaccine 0.5 mL RxNorm: IM 11/11/2011 11/11/2011 Inactive Pneumovax 23 25 mcg/0.5 mL Injection RxNorm: 146068 Milliliter(s) Inj 11/11/2011 11/11/2011 Inactive Biaxin 500 mg tablet RxNorm: 472285 1 Tablet(s) PO BID 201110/30/2011 Inactive Flagyl 500 mg tablet RxNorm: 610828 1 Tablet(s) PO TID 201109/03/2011 Inactive Flagyl 500 mg tablet RxNorm: 745854 1 Tablet(s) PO TID 201109/10/2011 Inactive doxycycline hyclate 100 mg tablet RxNorm: 391571 1 Tablet(s) PO BID 09/04/2011 09/10/2011 Inactive doxycycline hyclate 100 mg tablet RxNorm: 306087 1 Tablet(s) PO BID 09/04/2011 09/03/2011 Inactive Xopenex 1.25 mg/3 mL Neb Solution RxNorm: 756588 1 Unit(s) INH Q4 PRN 08/18/2011 12/15/2011 Inactive 1 box Xopenex 1.25 mg/3 mL Neb Solution RxNorm: 498787 1 Milliliter(s) INH Q4 PRN 08/18/2011 08/17/2011 Inactive 1 box Zithromax Z-Preston 250 mg Tab RxNorm: 174084 Tablet(s) PO UD 08/1008/11/2011 Inactive doxycycline hyclate 100 mg Tab RxNorm: 953273 1 Tablet(s) PO BID 08/11/2011 08/11/2011 Inactive prednisone 10 mg Tab RxNorm: 903490 1 Tablet(s) PO BID q a.m. and q NOON x 5 days 08/11/2011 08/10/2011 Inactive prednisone 10 mg Tab RxNorm: 560603 1 Tablet(s) PO BID q a.m. and q NOON x 5 days 08/11/2011 08/15/2011 Inactive Kenalog 40 mg/mL Susp for Injection RxNorm: 1443456 1 Milliliter(s) Inj 08/11/2011 08/11/2011 Inactive doxycycline hyclate 100 mg Tab RxNorm: 210380 1 Tablet(s) PO BID 08/11/2011 08/10/2011 Inactive nystatin 100,000 unit/mL Oral Susp RxNorm: 547208 6 Milliliter(s) PO QID 08/10/2011 08/16/2011 Inactive Jamie 60 mg Tab RxNorm: 330612 1 Tablet(s) PO daily 201101/23/2012 Inactive Jamie 60 mg Tab RxNorm: 790509 1 Tablet(s) PO daily 201107/27/2011 Inactive potassium chloride ER 10 mEq tablet,extended release RxNorm: 961451 1 Tablet(s) PO BID 07/27/2011 08/19/2012 Inactive Synthroid 75 mcg Tab RxNorm: 067738 Tablet(s) PO 07/06/2011 07/29/2012 Inactive one tab wednesday1/2 tab other days potassium chloride ER 10 mEq Tab RxNorm: 427223 1 Tablet(s) PO BID 07/02/2011 07/26/2011 Inactive Lasix 40 mg tablet RxNorm: 627818 1 Tablet(s) PO daily 201112/28/2011 Inactive Nexium 40 mg Capsule, delayed release RxNorm: 011020 1 Capsule(s) PO daily 06/25/2011 11/24/2011 Inactive Lexapro 10 mg Tab RxNorm: 000492 1 Tablet(s) PO daily 201107/14/2011 Inactive Carafate 100 mg/mL Oral Susp RxNorm: 229706 10 Milliliter(s) PO QID 06/25/2011 10/20/2011 Inactive dispense qs x 1 month nystatin 100,000 unit/mL Oral Susp RxNorm: 137524 3 Milliliter(s) PO QID swish, gargle, then swallow four times daily. 06/25/2011 07/14/2011 Inactive dispense qs x 10 days. Mucinex 1,200 mg 12 hr Tab RxNorm: 193828 1 Tablet(s) PO BID 07/21/2011 Inactive Lipitor 40 mg tablet RxNorm: 182856 1 Tablet(s) PO daily 201112/18/2011 Inactive lactobacillus acidophilus Cap RxNorm: 2 Capsule(s) PO BID 08/201107/14/2011 Inactive Mucinex 1,200 mg 12 hr Tab RxNorm: 149586 1 Tablet(s) PO BID 06/21/2011 Inactive lactobacillus acidophilus Cap RxNorm: 1 Capsule(s) PO BID 06/21/2011 Inactive Kenalog 40 mg/mL Susp for Injection RxNorm: 4483113 1 Milliliter(s) Inj 06/15/2011 06/15/2011 Inactive Flagyl 500 mg Tab RxNorm: 002615 1 Tablet(s) PO TID 201107/14/2011 Inactive doxycycline hyclate 100 mg Cap RxNorm: 101927 1 Capsule(s) PO BID 06/15/2011 07/14/2011 Inactive clarithromycin 250 mg Tab RxNorm: 592239 1 Tablet(s) PO BID 07/14/2011 Inactive Xanax 0.25 mg tablet RxNorm: 285030 1 Tablet(s) PO Q4-6H q 4-6 hrs prn 05/27/2011 07/16/2011 Inactive Lasix 40 mg Tab RxNorm : 957412 3 Tablet(s) PO as directed 2 q am and 1 q noon 05/27/2011 07/01/2011 Inactive potassium chloride ER 10 mEq Tab RxNorm: 643956 1 Tablet(s) PO BID 05/27/2011 05/26/2011 Inactive KCL 10 meq RxNorm: 1 PO BID 05/27/201112/2011 Inactive potassium chloride ER 10 mEq Tab RxNorm: 221998 1 Tablet(s) PO BID 05/27/2011 06/25/2011 Inactive Pradaxa 75 mg Cap RxNorm: 8496500 2 Capsule(s) PO daily 09/29/2011 Inactive Biaxin 500 mg Tab RxNorm: 582031 1 Tablet(s) PO BID 201103/16/2011 Inactive Biaxin 500 mg Tab RxNorm: 130402 1 Tablet(s) PO BID 201107/14/2011 Inactive azithromycin 250 mg Tab RxNorm: 699212 1 Tablet(s) PO daily two by mouth daily x 3 days, then daily thereafter 02/06/2011 07/14/2011 Inactive two by mouth daily x 3 days, then daily thereafter until supply is exhausted azithromycin 250 mg Tab RxNorm: 610826 1 Tablet(s) PO daily two by mouth daily x 3 days, then daily thereafter 02/06/2011 02/05/2011 Inactive two by mouth daily x 3 days, then daily thereafter until supply is exhausted azithromycin 250 mg Tab RxNorm: 161161 1 Tablet(s) PO daily two by mouth daily x 3 days, then daily thereafter 02/06/2011 02/05/2011 Inactive two by mouth daily x 3 days, then daily thereafter until supply is exhausted Valturna 300 mg-320 mg Tab RxNorm: 1787845 Tablet(s) PO 201007/14/2011 Inactive TAKE 1 TABLET BY MOUTH EVERY DAY Kenalog 40 mg/mL Susp for Injection RxNorm: 8722385 2 Milliliter(s) Inj 11/20/2010 11/20/2010 Inactive Avelox 400 mg Tab RxNorm: 885257 1 Tablet(s) PO daily 201007/14/2011 Inactive Biaxin 500 mg Tab RxNorm: 844016 1 Tablet(s) PO BID 201011/15/2010 Inactive Pradaxa 150 mg Cap RxNorm: 0374901 1 Capsule(s) PO BID 201007/14/2011 Inactive Zyrtec oral RxNorm: 61903 oral No Start Date Active Pepcid oral RxNorm: 4278 oral No Start Date Active doxazosin 2 mg tablet RxNorm: 965209 1/2 Tablet(s) PO BID No Start Date 12/08/2015 Inactive Pyridium 200 mg tablet RxNorm: 1471690 1 Tablet(s) PO TID PRN No Start Date 10/28/2016 Inactive ondansetron 4 mg disintegrating tablet RxNorm: 352111 1 Tablet(s) PO Q4 PRN No Start Date 10/21/2017 Inactive Pradaxa 75 mg Cap RxNorm: 6027917 1 Capsule(s) PO daily No Start Date 05/04/2011 Inactive Singulair 10 mg tablet RxNorm: 573694 1 Tablet(s) PO daily No Start Date 07/14/2011 Inactive hydrocodone-acetaminophen 5 mg-325 mg tablet RxNorm: 071831 1 Tablet(s) PO Q6 PRN No Start Date 04/12/2013 Inactive Toprol XL 100 mg 24 hr Tab RxNorm: 213607 1 Tablet(s) PO BID No Start Date 07/14/2011 Inactive Zofran 4 mg tablet RxNorm: 148682 1 Tablet(s) PO Q6 PRN No Start Date 12/06/2012 Inactive Vitamin D2 50,000 unit capsule RxNorm: 155243 1 Capsule(s) PO QW No Start Date 05/15/2014 Inactive prednisone 10 mg tablet RxNorm: 666385 Tablet(s) PO UD No Start Date 06/15/2017 Inactive 6,5,4,3,2,1 Lipitor 40 mg Tab RxNorm: 903616 1 Tablet(s) PO daily No Start Date 06/21/2011 Inactive Trilipix 135 mg Cap RxNorm: 476652 Capsule(s) PO No Start Date 11/26/2010 Inactive Eliquis 5 mg tablet RxNorm: 0176031 1 Tablet(s) PO BID No Start Date 12/08/2015 Inactive KCL 10 meq RxNorm: 1 PO BID No Start Date 05/26/2011 Inactive Diovan 80 mg Tab RxNorm: 222086 1 Tablet(s) PO QHS No Start Date 07/14/2011 Inactive Lipitor 20 mg tablet RxNorm: 060920 1 Tablet(s) PO daily No Start Date 04/13/2013 Inactive Zithromax Z-Prest[place] 250 mg tablet RxNorm: 600634 Tablet(s) PO No Start Date 01/30/2013 Inactive aspirin 81 mg Tab, Delayed Release RxNorm: 186870 1 Tablet(s) PO daily No Start Date 07/14/2011 Inactive prednisone 20 mg Tab RxNorm: 924725 Tablet(s) PO UD 3 tabs x 1 day, then 2 tabs daily x 2 days then 1 tab daily x 1 days, 1/2 daily x 1 day then 1/2 QOD x 2 doses then stop No Start Date 07/14/2011 Inactive Flonase 50 mcg/actuation Nasal [place] RxNorm: 6396560 2 [place] NASAL daily No Start Date 02/17/2016 Inactive hydrocodone 2.5 mg-guaifenesin 200 mg/5 mL syrup RxNorm: 614890 10 Unit Dose PO Q6 PRN No Start Date 04/25/2017 Inactive potassium chloride ER 10 mEq tablet,extended release RxNorm: 104843 1 Tablet(s) PO daily No Start Date 10/14/2016 Inactive Diovan 160 mg Tab RxNorm: 889230 1 Tablet(s) PO QHS No Start Date 12/20/2011 Inactive Lasix 40 mg Tab RxNorm : 348871 3 Tablet(s) PO as directed 2 q am and 1 q noon No Start Date 05/26/2011 Inactive metoprolol succinate ER 50 mg tablet,extended release 24 hr RxNorm: 684278 1 1 / 2 Tablet(s) PO BID No Start Date 2011 Inactive Carafate 1 gram Tab RxNorm: 080255 1 Tablet(s) PO TID No Start Date 07/14/2011 Inactive doxycycline hyclate 100 mg tablet RxNorm: 303572 1 Tablet(s) PO BID No Start Date 08/10/2016 Inactive Zithromax Z-Prest[place] 250 mg Tab RxNorm: 449285 Oral No Start Date 08/10/2011 Inactive prednisone 20 mg Tab RxNorm: 809690 Tablet(s) PO No Start Date 04/06/2011 Inactive 3 tabs x 2 days, 2 tabs x 2 days, 1 tab x 2 days, 1/2 daily x 4 days then stop Bentyl 10 mg Cap RxNorm: 288620 1 Capsule(s) PO BID No Start Date 07/14/2011 Inactive Xarelto 15 mg tablet RxNorm: 1905976 1 Tablet(s) PO daily No Start Date 06/27/2017 Inactive Valturna 300 mg-320 mg Tab RxNorm: 0429015 1 Tablet(s) PO daily No Start Date 01/19/2011 Inactive Vitamin D 1,000 unit Tab RxNorm: 663961 1 Tablet(s) PO daily No Start Date 07/14/2011 Inactive Lexapro 10 mg Tab RxNorm: 503590 1 Tablet(s) PO daily No Start Date 04/06/2011 Inactive Synthroid 75 mcg Tab RxNorm: 587425 Tablet(s) PO No Start Date 07/05/2011 Inactive Protonix 40 mg Tab RxNorm: 358748 1 Tablet(s) PO daily No Start Date 07/14/2011 Inactive ranitidine 150 mg tablet RxNorm: 791827 1 Tablet(s) PO BID No Start Date 04/25/2017 Inactive prednisone 20 mg tablet RxNorm: 591922 Tablet(s) PO 3daily x 2days, then 2daily x2days, then 1daily x2days, then 1/2 daily x 2days then stop No Start Date 12/12/2013 Inactive Nexium 40 mg Cap RxNorm: 228006 1 Capsule(s) PO daily No Start Date 06/03/2011 Inactive Xanax 0.25 mg Tab RxNorm: 446358 1 Tablet(s) PO Q4-6H q 4-6 hrs prn No Start Date 04/06/2011 Inactive Synthroid 50 mcg Tab RxNorm: 914851 1 Tablet(s) PO daily No Start Date 07/14/2011 Inactive Pradaxa 150 mg capsule RxNorm: 6200863 1 Capsule(s) PO BID No Start Date 12/30/2011 Inactive metoprolol tartrate 25 mg tablet RxNorm: 880256 1 Tablet(s) PO TID No Start Date 12/08/2015 Inactive Singulair 5 mg Chewable Tab RxNorm: 599644 1 Tablet(s) PO every other day No Start Date 04/13/2013 Inactive Medication Administered Medication Codes Instructions Start Date Status cyanocobalamin (vit B-12) 1,000 mcg/mL injection solution RxNorm: 941207 [place] 09/13/2015 No longer Active Kenalog 40 mg/mL suspension for injection RxNorm: 7558493 [place] 03/27/2015 No longer Active Kenalog 40 mg/mL suspension for injection RxNorm: 2391651 [place] 12/11/2014 No longer Active Kenalog 40 mg/mL suspension for injection RxNorm: 3580527 1Milliliter 04/14/2013 No longer Active Kenalog 40 mg/mL Susp for Injection RxNorm: 0222438 1Milliliter 04/11/2012 No longer Active Influenza Virus Vaccine 0.5 mL RxNorm: 11/11/2011 No longer Active Pneumovax 23 25 mcg/0.5 mL Injection RxNorm: 332104 [place] 11/11/2011 No longer Active Kenalog 40 mg/mL Susp for Injection RxNorm: 2443454 1Millil[place] 08/11/2011 No longer Active Kenalog 40 mg/mL Susp for Injection RxNorm: 5373294 1Milliliter 06/15/2011 No longer Active Kenalog 40 mg/mL Susp for Injection RxNorm: 1115445 2[place]il[place] 11/20/2010 No longer Active Immunizations Vaccine [...] Dates Encounter for immunization ICD-10: Z23 ICD-9: V04.81 [...] not specified ICD-10: N39.0 ICD-9: 599.0 12/31/2016 Other injury of unspecified body region [...] medications ICD-9: V58.69 04/12/2013 ESSENTIAL HYPERTENSION SNOMED: 93747321 ICD-9: 401.9 04/12/2013 ATRIAL FIBRILLATION ICD-9: 427.31 [...] Knee pain, acute ICD-9: 719.46 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 Encounter for general adult medical examination with abnormal findings ICD-9: V70.0 01/21/2011 Actinic keratosis ICD-9: 702.0 2010 DEPRESSIVE DISORDER NEC ICD-9: 311 2010 Reason For Visit Reason For Visit Effective Dates Notes vaccination against influenza 11/03/2017 Annual Medicare Wellness [...] Ord30 C/HDL 3.5 Ratio 03/15/2017 Comp Metabolic Xto457 NA 140 mEq/L 03/15/2017 Comp Metabolic Rgx912 K 3.6 mEq/L 03/15/2017 Comp Metabolic Vqk454 CL 104 mEq/L 03/15/2017 Comp Metabolic Ibg680 CO2 27.0 mEq/L 03/15/2017 Comp Metabolic Lym338 ANION GAP 13 03/15/2017 Comp Metabolic Oic214 GLUCOSE 93 mg/dL 03/15/2017 Comp Metabolic Vko801 Creat 0.9 mg/dL 03/15/2017 Comp Metabolic Uir430 eGFR 68 ml/min/1.73m2 03/15/2017 Comp Metabolic Tiq711 BUN 10 mg/dL 03/15/2017 Comp Metabolic Ibv753 B/C Ratio 11.4 Ratio 03/15/2017 Comp Metabolic Cwd358 CALCIUM 9.4 mg/dL 03/15/2017 Comp Metabolic Klt832 ALK PHOS 84 U/L 03/15/2017 Comp Metabolic Chp070 AST(SGOT) 14 U/L 03/15/2017 Comp Metabolic Wal045 ALT(SGPT) 15 U/L 03/15/2017 Comp Metabolic Gyh302 BILI T 0.5 mg/dL 03/15/2017 Comp Metabolic Pzd482 ALBUMIN 3.6 g/dL 03/15/2017 Comp Metabolic Man431 TPRO 6.0 g/dL 03/15/2017 Comp Metabolic Wbq866 GLOB 2.4 g/dL 03/15/2017 Comp Metabolic Qha411 A/G Ratio 1.5 Ratio 03/15/2017 Comp Metabolic Qjp177 Osmo 278 mOsmo 03/15/2017 Magnesium Ord90 Mag 2.0 mg/dL 03/15/2017 Cbc With Differential Ord2 WBC 7.63 K/ul 03/15/2017 Cbc With Differential Ord2 RBC 4.25 M/ul 03/15/2017 Cbc With Differential Ord2 HGB 12.9 g/dl 03/15/2017 Cbc With Differential Ord2 HCT 40.0 % 03/15/2017 Cbc With Differential Ord2 Neut% 61.7 % 03/15/2017 Cbc With Differential Ord2 Lymph% 29.4 % 03/15/2017 Cbc With Differential Ord2 MCV 94.1 fl 03/15/2017 Cbc With Differential Ord2 MCH 30.4 pg 03/15/2017 Cbc With Differential Ord2 [place]% 6.7 % 03/15/2017 Cbc With Differential Ord2 MCHC 32.3 pg 03/15/2017 Cbc With Differential Ord2 Eos% 1.7 % 03/15/2017 Cbc With Differential Ord2 Baso% 0.5 % 03/15/2017 Cbc With Differential Ord2 PLT 181 K/ul 03/15/2017 Cbc With Differential Ord2 RDW 13.7 % 03/15/2017 Cbc With Differential Ord2 Neut ABS# 4.71 K/ul 03/15/2017 Cbc With Differential Ord2 Lymph ABS# 2.24 K/ul 03/15/2017 Cbc With Differential Ord2 [place] ABS# 0.5 K/ul 03/15/2017 Cbc With Differential [...] Ord15 CALCIUM 9.4 mg/dL 01/15/2017 Comp Metabolic Fdn384 NA 137 mEq/L 12/31/2016 Comp Metabolic Kmd072 K 3.2 mEq/L 12/31/2016 Comp Metabolic Tmu447 CL 95 mEq/L 12/31/2016 Comp Metabolic Nif939 CO2 30.0 mEq/L 12/31/2016 Comp Metabolic Had104 ANION GAP 15 12/31/2016 Comp Metabolic Rmq393 GLUCOSE 111 mg/dL 12/31/2016 Comp Metabolic Kmy816 Creat 1.3 mg/dL 12/31/2016 Comp Metabolic Mij640 eGFR 45 ml/min/1.73m2 12/31/2016 Comp Metabolic Cqx283 BUN 14 mg/dL 12/31/2016 Comp Metabolic Gxw572 B/C Ratio 11.1 Ratio 12/31/2016 Comp Metabolic Zvf314 CALCIUM 10.0 mg/dL 12/31/2016 Comp Metabolic Mnl576 ALK PHOS 61 U/L 12/31/2016 Comp Metabolic Uzy985 AST(SGOT) 14 U/L 12/31/2016 Comp Metabolic Bfo776 ALT(SGPT) 13 U/L 12/31/2016 Comp Metabolic Dtb079 BILI T 0.9 mg/dL 12/31/2016 Comp Metabolic Sfh176 ALBUMIN 3.8 g/dL 12/31/2016 Comp Metabolic Mzj139 TPRO 6.7 g/dL 12/31/2016 Comp Metabolic Yjp192 GLOB 2.9 g/dL 12/31/2016 Comp Metabolic Ofm745 A/G Ratio 1.3 Ratio 12/31/2016 Comp Metabolic Nbp257 Osmo 275 mOsmo 12/31/2016 Cbc With Differential [...] 92.9 fl 12/31/2016 Cbc With Differential Ord2 [place]% 11.2 % 12/31/2016 Cbc With Differential Ord2 MCH 30.3 pg 12/31/2016 Cbc With Differential Ord2 Eos% 1.9 % 12/31/2016 Cbc With Differential Ord2 MCHC 32.6 pg 12/31/2016 Cbc With Differential Ord2 PLT 199 K/ul 12/31/2016 Cbc With Differential Ord2 Baso% 0.9 % 12/31/2016 Cbc With Differential Ord2 Neut ABS# 3.58 K/ul 12/31/2016 Cbc With Differential Ord2 RDW 13.3 % 12/31/2016 Cbc With Differential Ord2 Lymph ABS# 1.89 K/ul 12/31/2016 Cbc With Differential Ord2 [place] ABS# 0.7 K/ul 12/31/2016 Cbc With Differential Ord2 Eos ABS# 0.1 K/ul 12/31/2016 Cbc With Differential Ord2 Baso ABS# 0.1 K/ul 12/31/2016 Urine Culture Ucult Complete >100,000 col/ml aerobic growth sent to ref lab 10/30/2016 Tsh Ord6 hTSH II 2.88 uIU/mL 09/15/2016 Comp Metabolic Fyg907 NA 139 mEq/L 09/15/2016 Comp Metabolic Ric345 K 4.0 mEq/L 09/15/2016 Comp Metabolic Ptg073 CL 104 mEq/L 09/15/2016 Comp Metabolic Baj297 CO2 27.0 mEq/L 09/15/2016 Comp Metabolic Diq882 ANION GAP 12 09/15/2016 Comp Metabolic Xpr425 GLUCOSE 105 mg/dL 09/15/2016 Comp Metabolic Dfk693 Creat 0.9 mg/dL 09/15/2016 Comp Metabolic Ctw265 eGFR 67 ml/min/1.73m2 09/15/2016 Comp Metabolic Zpj500 BUN 14 mg/dL 09/15/2016 Comp Metabolic Sty763 B/C Ratio 15.7 Ratio 09/15/2016 Comp Metabolic Pmm753 CALCIUM 9.0 mg/dL 09/15/2016 Comp Metabolic Kmh981 ALK PHOS 85 U/L 09/15/2016 Comp Metabolic Apk558 AST(SGOT) 12 U/L 09/15/2016 Comp Metabolic Imr755 ALT(SGPT) 11 U/L 09/15/2016 Comp Metabolic Uuc561 BILI T 0.5 mg/dL 09/15/2016 Comp Metabolic Vrd224 ALBUMIN 3.4 g/dL 09/15/2016 Comp Metabolic Pko443 TPRO 5.8 g/dL 09/15/2016 Comp Metabolic Nox208 GLOB 2.4 g/dL 09/15/2016 Comp Metabolic Vox031 A/G Ratio 1.4 Ratio 09/15/2016 Comp Metabolic Icb649 Osmo 278 mOsmo 09/15/2016 Vitamin D 25 Oh Zqy1931 VITAMIN D, 25 HYDROXY 25.95 ng/mL Lipid [...] 9.2 mg/dL 01/13/2016 Vitamin D 25 Oh Khf0805 VITAMIN D, 25 HYDROXY 38.03 ng/mL Comp Metabolic Yhy553 NA 139 mEq/L 11/28/2015 Comp Metabolic Zsd441 K 4.0 mEq/L 11/28/2015 Comp Metabolic Yrz628 CL 105 mEq/L 11/28/2015 Comp Metabolic Zvv015 CO2 25.0 mEq/L 11/28/2015 Comp Metabolic Vdu403 ANION GAP 13 11/28/2015 Comp Metabolic Tha204 GLUCOSE 100 mg/dL 11/28/2015 Comp Metabolic Acs907 Creat 1.1 mg/dL 11/28/2015 Comp Metabolic Ehk924 eGFR 55 ml/min/1.73m2 11/28/2015 Comp Metabolic Ckp788 BUN 13 mg/dL 11/28/2015 Comp Metabolic Lbh479 B/C Ratio 12.3 Ratio 11/28/2015 Comp Metabolic Pky176 CALCIUM 9.2 mg/dL 11/28/2015 Comp Metabolic Nlh832 ALK PHOS 85 U/L 11/28/2015 Comp Metabolic Oid284 AST(SGOT) 15 U/L 11/28/2015 Comp Metabolic Tth141 ALT(SGPT) 15 U/L 11/28/2015 Comp Metabolic Myf290 BILI T 0.5 mg/dL 11/28/2015 Comp Metabolic Jcl805 ALBUMIN 3.7 g/dL 11/28/2015 Comp Metabolic Qks971 TPRO 6.4 g/dL 11/28/2015 Comp Metabolic Blm017 GLOB 2.7 g/dL 11/28/2015 Comp Metabolic Mjo148 A/G Ratio 1.4 Ratio 11/28/2015 Comp Metabolic Vst443 Osmo 278 mOsmo 11/28/2015 Tsh Ord6 hTSH II 1.98 uIU/mL 11/28/2015 Free T4 Zso463 FREE T4 1.04 ng/dL 11/28/2015 Cbc With [...] 94.5 fl 11/28/2015 Cbc With Differential Ord2 [place]% 6.7 % 11/28/2015 Cbc With Differential Ord2 MCH 30.9 pg 11/28/2015 Cbc With Differential Ord2 Eos% [...] 2.19 K/ul 11/28/2015 Cbc With Differential Ord2 [place] ABS# 0.6 K/ul 11/28/2015 Cbc With Differential Ord2 Eos ABS# 0.1 K/ul 11/28/2015 Cbc With Differential Ord2 Baso ABS# 0.1 K/ul 11/28/2015 Comp Metabolic Rpx237 NA 135 mEq/L 10/15/2015 Comp Metabolic Tet663 K 3.5 mEq/L 10/15/2015 Comp Metabolic Vdy869 CL 100 mEq/L 10/15/2015 Comp Metabolic Puz390 CO2 29.0 mEq/L 10/15/2015 Comp Metabolic Vex665 ANION GAP 10 10/15/2015 Comp Metabolic Tnl843 GLUCOSE 88 mg/dL 10/15/2015 Comp Metabolic Zra642 Creat 0.9 mg/dL 10/15/2015 Comp Metabolic Hhg618 eGFR 67 ml/min/1.73m2 10/15/2015 Comp Metabolic Uya426 BUN 16 mg/dL 10/15/2015 Comp Metabolic Lke793 B/C Ratio 17.8 Ratio 10/15/2015 Comp Metabolic Yqm105 CALCIUM 9.4 mg/dL 10/15/2015 Comp Metabolic Sfz559 ALK PHOS 96 U/L 10/15/2015 Comp Metabolic Xfi868 AST(SGOT) 15 U/L 10/15/2015 Comp Metabolic Tum352 ALT(SGPT) 14 U/L 10/15/2015 Comp Metabolic Bnk095 BILI T 0.4 mg/dL 10/15/2015 Comp Metabolic Cbj513 ALBUMIN 4.2 g/dL 10/15/2015 Comp Metabolic Eqd451 TPRO 7.2 g/dL 10/15/2015 Comp Metabolic Tus385 GLOB 3.1 g/dL 10/15/2015 Comp Metabolic Xem303 A/G Ratio 1.4 Ratio 10/15/2015 Comp Metabolic Oeg188 Osmo 271 mOsmo 10/15/2015 Comp Metabolic Mka945 NA 135 mEq/L 10/15/2015 Comp Metabolic Gql845 K 3.5 mEq/L 10/15/2015 Comp Metabolic Aop339 CL 100 mEq/L 10/15/2015 Comp Metabolic Rmm187 CO2 29.0 mEq/L 10/15/2015 Comp Metabolic Qkn680 ANION GAP 10 10/15/2015 Comp Metabolic Wwy328 GLUCOSE 88 mg/dL 10/15/2015 Comp Metabolic Vqz756 Creat 0.9 mg/dL 10/15/2015 Comp Metabolic Rer422 eGFR 67 ml/min/1.73m2 10/15/2015 Comp Metabolic Qys876 BUN 16 mg/dL 10/15/2015 Comp Metabolic Qte143 B/C Ratio 17.8 Ratio 10/15/2015 Comp Metabolic Wdp571 CALCIUM 9.4 mg/dL 10/15/2015 Comp Metabolic Jtj935 ALK PHOS 96 U/L 10/15/2015 Comp Metabolic Nfs198 AST(SGOT) 15 U/L 10/15/2015 Comp Metabolic Dvn425 ALT(SGPT) -125 U/L 10/15/2015 Comp Metabolic Lyv173 BILI T 0.4 mg/dL 10/15/2015 Comp Metabolic Qpq973 ALBUMIN 4.2 g/dL 10/15/2015 Comp Metabolic Lmx528 TPRO 7.2 g/dL 10/15/2015 Comp Metabolic Hjz230 GLOB 3.1 g/dL 10/15/2015 Comp Metabolic Nhc488 A/G Ratio 1.4 Ratio 10/15/2015 Comp Metabolic Dtg420 Osmo 271 mOsmo 10/15/2015 Magnesium Ord90 Mag 2.2 mg/dL 10/15/2015 Magnesium Ord90 Mag 1.9 mg/dL 09/05/2015 Comp Metabolic Rpm689 NA 138 mEq/L 09/05/2015 Comp Metabolic Frt292 K 3.7 mEq/L 09/05/2015 Comp Metabolic Wec204 CL 99 mEq/L 09/05/2015 Comp Metabolic Lvy077 CO2 30.0 mEq/L 09/05/2015 Comp Metabolic Inc739 ANION GAP 13 09/05/2015 Comp Metabolic Zmn932 GLUCOSE 97 mg/dL 09/05/2015 Comp Metabolic Hqp482 Creat 1.1 mg/dL 09/05/2015 Comp Metabolic Hma278 eGFR 54 ml/min/1.73m2 09/05/2015 Comp Metabolic Kun821 BUN 18 mg/dL 09/05/2015 Comp Metabolic Nub766 B/C Ratio 16.7 Ratio 09/05/2015 Comp Metabolic Xjk997 CALCIUM 9.6 mg/dL 09/05/2015 Comp Metabolic Uwi492 ALK PHOS 96 U/L 09/05/2015 Comp Metabolic Mrq935 AST(SGOT) 15 U/L 09/05/2015 Comp Metabolic Vzn809 ALT(SGPT) 14 U/L 09/05/2015 Comp Metabolic Wpt662 BILI T 0.5 mg/dL 09/05/2015 Comp Metabolic Zpb055 ALBUMIN 4.1 g/dL 09/05/2015 Comp Metabolic Ble840 TPRO 7.0 g/dL 09/05/2015 Comp Metabolic Dkx388 GLOB 3.0 g/dL 09/05/2015 Comp Metabolic Dgh723 A/G Ratio 1.4 Ratio 09/05/2015 Comp Metabolic Sxa552 Osmo 277 mOsmo 09/05/2015 Vitamin D 25 Oh Nuq7062 VITAMIN D, 25 HYDROXY 22.39 ng/mL Magnesium Ord90 Mag 2.0 mg/dL 06/11/2015 Tsh Ord6 hTSH II 3.52 uIU/mL 06/11/2015 Comp Metabolic Jfn879 NA 135 mEq/L 06/11/2015 Comp Metabolic Gwh099 K 4.3 mEq/L 06/11/2015 Comp Metabolic Dtm686 CL 103 mEq/L 06/11/2015 Comp Metabolic Dzr174 CO2 25.0 mEq/L 06/11/2015 Comp Metabolic Woy941 ANION GAP 11 06/11/2015 Comp Metabolic Vlu157 GLUCOSE 75 mg/dL 06/11/2015 Comp Metabolic Omf036 Creat 0.9 mg/dL 06/11/2015 Comp Metabolic Hfo654 eGFR 69 ml/min/1.73m2 06/11/2015 Comp Metabolic Ijr517 BUN 22 mg/dL 06/11/2015 Comp Metabolic Zyk885 B/C Ratio 25.3 Ratio 06/11/2015 Comp Metabolic Uas933 CALCIUM 9.2 mg/dL 06/11/2015 Comp Metabolic Vjs516 ALK PHOS 88 U/L 06/11/2015 Comp Metabolic Zwp338 AST(SGOT) 13 U/L 06/11/2015 Comp Metabolic Yse873 ALT(SGPT) 15 U/L 06/11/2015 Comp Metabolic Vpd749 BILI T 0.4 mg/dL 06/11/2015 Comp Metabolic Xvq803 ALBUMIN 3.7 g/dL 06/11/2015 Comp Metabolic Bwe799 TPRO 6.6 g/dL 06/11/2015 Comp Metabolic Ktk999 GLOB 2.9 g/dL 06/11/2015 Comp Metabolic Jkh314 A/G Ratio 1.3 Ratio 06/11/2015 Comp Metabolic Svk316 Osmo 272 mOsmo 06/11/2015 Free T4 Wwa618 FREE T4 0.95 ng/dL 06/11/2015 Cbc With [...] 31.3 pg 06/11/2015 Cbc With Differential Ord2 [place]% 7.4 % 06/11/2015 Cbc With Differential Ord2 [...] 2.57 K/ul 06/11/2015 Cbc With Differential Ord2 [place] ABS# 0.9 K/ul 06/11/2015 Cbc With Differential [...] 13.8 % 11/16/2014 Vitamin D 25 Oh Wvl9418 VITAMIN D, 25 HYDROXY 22.85 ng/mL Lipid Ord30 CHOL 206 mg/dL 11/16/2014 Lipid Ord30 HDL 49.0 mg/dl 11/16/2014 Lipid Ord30 TRIG 104 mg/dL 11/16/2014 Lipid Ord30 LDL 136 mg/dL 11/16/2014 Lipid Ord30 C/HDL 4.2 Ratio 11/16/2014 Tsh Ord6 hTSH II 2.05 uIU/mL 11/16/2014 Comp Metabolic Mti627 NA 138 mEq/L 11/16/2014 Comp Metabolic Gwt735 K 4.0 mEq/L 11/16/2014 Comp Metabolic Bht783 CL 104 mEq/L 11/16/2014 Comp Metabolic Dit449 CO2 27.0 mEq/L 11/16/2014 Comp Metabolic Jsw637 ANION GAP 11 11/16/2014 Comp Metabolic Zel348 GLUCOSE 94 mg/dL 11/16/2014 Comp Metabolic Mzm445 Creat 0.9 mg/dL 11/16/2014 Comp Metabolic Ahp863 eGFR 64 ml/min/1.73m2 11/16/2014 Comp Metabolic Ize415 BUN 12 mg/dL 11/16/2014 Comp Metabolic Jhv252 B/C Ratio 12.9 Ratio 11/16/2014 Comp Metabolic Bff708 CALCIUM 9.4 mg/dL 11/16/2014 Comp Metabolic Scz837 ALK PHOS 88 U/L 11/16/2014 Comp Metabolic Ise781 AST(SGOT) 14 U/L 11/16/2014 Comp Metabolic Umn636 ALT(SGPT) 12 U/L 11/16/2014 Comp Metabolic Doq678 BILI T 0.6 mg/dL 11/16/2014 Comp Metabolic Ukw878 ALBUMIN 3.7 g/dL 11/16/2014 Comp Metabolic Xar430 TPRO 6.3 g/dL 11/16/2014 Comp Metabolic Acd761 GLOB 2.6 g/dL 11/16/2014 Comp Metabolic Mmj703 A/G Ratio 1.4 Ratio 11/16/2014 Comp Metabolic Tew683 Osmo 275 mOsmo 11/16/2014 %Hba1C Nnz731 % HbA1c 80116-0 5.7 % 11/16/2014 %Hba1C Lsy622 Gluc Ave 117 mg/dL 11/16/2014 GFR CALC 8064164 GFR AA >60 ML/MIN 04/12/2013 GFR CALC 5419847 GFR NON-AA >60 ML/MIN 04/12/2013 TSH 1418708 TSH 2.194 uIU/ML 04/12/2013 VIT B 12 7498015 VIT B 12 415 PG/ML 04/12/2013 CBC 3294459 WBC 8.8 10e9/L 04/12/2013 CBC 2582811 RBC 4.59 10e12/L 04/12/2013 CBC 3651504 HGB 14.3 g/dL 04/12/2013 CBC 9406633 HCT DET 42.4 % 04/12/2013 CBC 8242507 MCV 92.4 fL 04/12/2013 CBC 7667611 MCH 31.2 pg 04/12/2013 CBC 6428362 MCHC 33.7 g/dL 04/12/2013 CBC 1575110 PLT 213 10e9/L 04/12/2013 CBC 4876215 MPV 12.8 fL 04/12/2013 CBC 1138549 LULU % 61.8 % 04/12/2013 CBC 1132632 LY % 29.2 % 04/12/2013 CBC 9244891 MON % 7.2 % 04/12/2013 CBC 6566911 EOS % 1.3 % 04/12/2013 CBC 4466409 BASO % 0.5 % 04/12/2013 CBC 8883565 RDW 12.6 % 04/12/2013 CBC 2952335 ABS LULU 5.44 10e9/L 04/12/2013 CBC 3965006 ABS LYMPH 2.57 10e9/L 04/12/2013 CBC 7245463 ABS MONO 0.63 10e9/L 04/12/2013 CBC 8297969 ABS EOS 0.11 10e9/L 04/12/2013 CBC 0060560 ABS BASO 0.04 10e9/L 04/12/2013 CBC 4757495 RDW-SD 41.3 fL 04/12/2013 FREE T4 5142152 FREE T4 1.09 NG/DL 04/12/2013 A1C HPLC 9873621 A1C HPLC 92378-3 5.4 % 04/12/2013 CHEM 14 3655655 AST 12 U/L 04/12/2013 CHEM 14 5285569 ALT 11 IU/L 04/12/2013 CHEM 14 9259534 BUN 14 MG/DL 04/12/2013 CHEM 14 8480409 ALBUMIN 4.1 GM/DL 04/12/2013 CHEM 14 6666414 CHLORIDE 105 MMOL/L 04/12/2013 CHEM 14 3819002 BILI TOT 0.6 MG/DL 04/12/2013 CHEM 14 6508136 ALK PHOS 81 U/L 04/12/2013 CHEM 14 6662206 SODIUM 138 MMOL/L 04/12/2013 CHEM 14 7192008 CREATININE 0.86 MG/DL 04/12/2013 CHEM 14 7047305 CALCIUM 9.8 MG/DL 04/12/2013 CHEM 14 7130860 POTASSIUM 4.1 MMOL/L 04/12/2013 CHEM 14 5518678 PROT TOT 6.6 GM/DL 04/12/2013 CHEM 14 3219561 GLUCOSE 112 MG/DL 04/12/2013 CHEM 14 7665495 BICARB 27 MMOL/L 04/12/2013 CHEM 14 0542941 ANION GAP 6 MEQ/L 04/12/2013 LIPID GRP HDL TEST 55 MG/DL 04/12/2013 LIPID GRP TRIG 107 MG/DL 04/12/2013 LIPID GRP TEST LDL 193 MG/DL 04/12/2013 LIPID GRP CHOL 269 MG/DL 04/12/2013 LIPID GRP RCHOL/HDL 4.89 RATIO 04/12/2013 NICOT QN S 6750328 NICOTIN S < 2.0 NG/ML 03/07/2012 NICOT QN S 6198785 XCOTININ S < 2.0 NG/ML 03/07/2012 CBC 8746457 WBC 8.1 10e9/L 03/02/2012 CBC 8064959 RBC 4.44 10e12/L 03/02/2012 CBC 5724820 HGB 13.8 g/dL 03/02/2012 CBC 4779550 HCT DET 41.3 % 03/02/2012 CBC 8220144 MCV 93.0 fL 03/02/2012 CBC 7657060 MCH 31.1 pg 03/02/2012 CBC 9620353 MCHC 33.4 g/dL 03/02/2012 CBC 5526736 PLT 188 10e9/L 03/02/2012 CBC 0968900 MPV 14.3 fL 03/02/2012 CBC 6010280 LULU % 61.5 % 03/02/2012 CBC 7798437 LY % 28.8 % 03/02/2012 CBC 5959478 MON % 8.0 % 03/02/2012 CBC 0388206 EOS % 1.1 % 03/02/2012 CBC 2423598 BASO % 0.6 % 03/02/2012 CBC 5262817 RDW 14.0 % 03/02/2012 CBC 8943204 ABS LULU 4.98 10e9/L 03/02/2012 CBC 1734239 ABS LYMPH 2.33 10e9/L 03/02/2012 CBC 1428317 ABS MONO 0.65 10e9/L 03/02/2012 CBC 2529972 ABS EOS 0.09 10e9/L 03/02/2012 CBC 5439537 ABS BASO 0.05 10e9/L 03/02/2012 CBC 8993995 RDW-SD 46.3 fL 03/02/2012 LIPID GRP HDL TEST 37 MG/DL 03/02/2012 LIPID GRP TRIG 136 MG/DL 03/02/2012 LIPID GRP TEST LDL 106 MG/DL 03/02/2012 LIPID GRP CHOL 170 MG/DL 03/02/2012 LIPID GRP RCHOL/HDL 4.59 RATIO 03/02/2012 GFR CALC 6207657 GFR AA >60 ML/MIN 03/02/2012 GFR CALC 3218570 GFR NON-AA >60 ML/MIN 03/02/2012 FREE T4 0310947 FREE T4 1.09 NG/DL 03/02/2012 A1C HPLC 8851169 A1C HPLC 02738-8 5.4 % 03/02/2012 CHEM 14 7667298 AST 17 U/L 03/02/2012 CHEM 14 4924318 ALT 22 IU/L 03/02/2012 CHEM 14 8595287 BUN 15 MG/DL 03/02/2012 CHEM 14 4887411 ALBUMIN 4.0 GM/DL 03/02/2012 CHEM 14 3831962 CHLORIDE 107 MMOL/L 03/02/2012 CHEM 14 5908187 BILI TOT 0.4 MG/DL 03/02/2012 CHEM 14 6540083 ALK PHOS 83 U/L 03/02/2012 CHEM 14 6084362 SODIUM 141 MMOL/L 03/02/2012 CHEM 14 5990592 CREATININE 0.86 MG/DL 03/02/2012 CHEM 14 4703991 CALCIUM 9.5 MG/DL 03/02/2012 CHEM 14 2180452 POTASSIUM 4.0 MMOL/L 03/02/2012 CHEM 14 1590351 PROT TOT 6.6 GM/DL 03/02/2012 CHEM 14 9331207 GLUCOSE 102 MG/DL 03/02/2012 CHEM 14 4851299 BICARB 28 MMOL/L 03/02/2012 CHEM 14 1064536 ANION GAP 6 MEQ/L 03/02/2012 TSH 0503354 TSH 2.320 uIU/ML 03/02/2012 GFR CALC 9481054 GFR AA >60 ML/MIN 07/03/2011 GFR CALC 9450008 GFR NON-AA 54.0L ML/MIN 07/03/2011 CHEM 14 3392542 AST 15 U/L 07/03/2011 CHEM 14 4437387 ALT 30 IU/L 07/03/2011 CHEM 14 7046441 BUN 19 MG/DL 07/03/2011 CHEM 14 4551273 ALBUMIN 4.2 GM/DL 07/03/2011 CHEM 14 7941741 CHLORIDE 100 MMOL/L 07/03/2011 CHEM 14 20270820 BILI TOT 0.8 MG/DL 07/03/2011 CHEM 14 20270820 ALK PHOS 74 U/L 07/03/2011 CHEM 14 20270820 SODIUM 137 MMOL/L 07/03/2011 CHEM 14 0262199 CREATININE 1.03 MG/DL 07/03/2011 CHEM 14 7972835 CALCIUM 9.6 MG/DL 07/03/2011 CHEM 14 7218871 POTASSIUM 4.4 MMOL/L 07/03/2011 CHEM 14 20270820 PROT TOT 6.7 GM/DL 07/03/2011 CHEM 14 7681461 GLUCOSE 106 MG/DL 07/03/2011 CHEM 14 7707503 BICARB 28 MMOL/L 07/03/2011 CHEM 14 7641405 ANION GAP 9 MEQ/L 07/03/2011 URINALYSIS NONAUTO W/O SCOPE 84275 Specific [place] 1.010 DateTime(Free Text in Aprima) URINALYSIS NONAUTO W/O SCOPE 33825 PH 5 DateTime(Free Text in Aprima) URINALYSIS NONAUTO W/O SCOPE 59155 GLUCOSE neg DateTime( Free Text in Aprima) URINALYSIS NONAUTO W/O SCOPE 02547 Protein neg DateTime( Free Text in Aprima) URINALYSIS NONAUTO W/O SCOPE 62086 Blood 1+ DateTime(Free Text in Aprima) URINALYSIS NONAUTO W/O SCOPE 93033 Bilirubin neg DateTime(Free Text in Aprima) URINALYSIS NONAUTO W/O SCOPE 55574 Ketones neg DateTime( Free Text in Aprima) URINALYSIS NONAUTO W/O SCOPE 73723 Urobilinogen neg DateTime(Free Text in Aprima) URINALYSIS NONAUTO W/O SCOPE 08510 Nitrite neg DateTime( Free Text in Aprima) URINALYSIS NONAUTO W/O SCOPE 23520 Leukocytes neg DateTime(Free Text in Aprima) Review of Systems System Result Effective Dates Constitutional No anorexia 04/26/2017 Constitutional No recent [...] 11/06/2010 None Procedures Procedure Codes Date ADMIN INFLUENZA VIRUS VAC CPT-4: G0008 11/03/2017 FLU VACC PRSV FREE INC ANTIG CPT-4: 64635 11/03/2017 PPPS, SUBSEQ VISIT CPT -4: G0439 04/26/2017 ADMIN PNEUMOCOCCAL VACCINE SNOMED CT: 96997781 CPT-4: G0009 03/15/2017 Pneumococcal Polysaccharide Vaccine, 23-Valent, Ad CPT-4: 32483 03/15/2017 URINALYSIS NONAUTO W/O SCOPE CPT-4: 22878 12/31/2016 ADMIN INFLUENZA VIRUS VAC CPT-4: G0008 11/03/2016 FLU VACC PRSV FREE INC ANTIG CPT-4: 41159 11/03/2016 URINALYSIS NONAUTO W/O SCOPE CPT-4: 78784 10/29/2016 PPPS, INITIAL VISIT CPT-4: G0438 12/09/2015 ADMIN INFLUENZA VIRUS VAC CPT-4: G0008 11/13/2015 FLU VACC PRSV FREE INC ANTIG Formatting Model/CDA Sections, Assigned to/Isabel Arrington CPT-4: 81542Ltyxuay 11/13/2015 URINALYSIS NONAUTO W/O SCOPE CPT-4: 00202 09/24/2015 THER/PROPH/DIAG INJ SC/IM CPT-4: 68480 09/13/2015 VITAMIN B12 INJECTION CPT-4: J3420 09/13/2015 URINALYSIS NONAUTO W/O SCOPE CPT-4: 88021 08/05/2015 URINALYSIS NONAUTO W/O SCOPE CPT-4: 64174 06/12/2015 TRIAMCINOLONE ACET INJ NOS CPT-4: J3301 03/27/2015 THER/PROPH/DIAG INJ SC/IM CPT-4: 99354 12/24/2014 PNEUMOCOCCAL VACC [address]: 69988772 CPT-4: 13079 12/24/2014 TRIAMCINOLONE ACET INJ NOS CPT-4: J3301 12/11/2014 INITIAL PREVENTIVE EXAM CPT-4: G0402 12/04/2014 SCREENINGMAMMOGRAPHYDIGITAL CPT-4: G0202 12/04/2014 ADMIN INFLUENZA VIRUS VAC CPT-4: G0008 11/22/2014 FLU VACC 4 SUZETTE [address] Y[address] PLUS IM SNOM[address] CT: 88350495 CPT-4: 70763 11/22/2014 URINALYSIS NONAUTO W/O SCOPE CPT-4: 67663 11/08/2014 URINALYSIS NONAUTO W/O SCOPE CPT-4: 99240 07/30/2014 TRIAMCINOLONE ACET INJ NOS CPT-4: J3301 04/14/2013 ROUTINE VENIPUNCTURE CPT-4: 25083 04/12/2013 INJ TRIGGER POINT 1/2 MUSCL CPT-4: 62368 01/05/2013 TRIAMCINOLONE ACET INJ NOS CPT-4: J3301 04/11/2012 THER/PROPH/DIAG INJ SC/IM CPT-4: 33524 03/09/2012 THER/PROPH/DIAG INJ SC/IM CPT-4: 42589 03/02/2012 ROUTINE VENIPUNCTURE CPT-4: 40871 03/02/2012 THER/PROPH/DIAG INJ SC/IM CPT-4: 55414 02/11/2012 THER/PROPH/DIAG INJ SC/IM CPT-4: 30073 01/27/2012 THER/PROPH/DIAG INJ SC/IM CPT-4: 96794 01/20/2012 THER/PROPH/DIAG INJ SC/IM CPT-4: 95698 01/13/2012 THER/PROPH/DIAG INJ SC/IM CPT-4: 58842 01/06/2012 THER/PROPH/DIAG INJ SC/IM CPT-4: 88366 12/16/2011 THER/PROPH/DIAG INJ SC/IM CPT-4: 52309 12/09/2011 THER/PROPH/DIAG INJ SC/IM CPT-4: 10922 12/01/2011 THER/PROPH/DIAG INJ SC/IM CPT-4: 12253 11/25/2011 THER/PROPH/DIAG INJ SC/IM CPT-4: 93133 11/18/2011 IMMUNIZATION ADMIN CPT -4: 16725 11/11/2011 Influenza Virus Vaccine, Split Virus, >3 Yrs, IM CPT-4: 93639 11/11/2011 ADMIN PNEUMOCOCCAL VACCINE SNOMED CT: 63027331 CPT-4: G0009 11/11/2011 THER/PROPH/DIAG INJ SC/IM CPT-4: 79386 11/03/2011 THER/PROPH/DIAG INJ SC/IM CPT-4: 56855 10/21/2011 DESTRUCT PREMALG LESION CPT-4: 43793 10/21/2011 THER/PROPH/DIAG INJ SC/IM CPT-4: 85966 10/14/2011 THER/PROPH/DIAG INJ SC/IM CPT-4: 30758 10/07/2011 THER/PROPH/DIAG INJ SC/IM CPT-4: 77527 09/22/2011 THER/PROPH/DIAG INJ SC/IM CPT-4: 41555 09/16/2011 THER/PROPH/DIAG INJ SC/IM CPT-4: 97078 09/02/2011 URINALYSIS NONAUTO W/O SCOPE CPT-4: 44373 09/02/2011 THER/PROPH/DIAG INJ SC/IM CPT-4: 29644 08/26/2011 TRIAMCINOLONE ACET INJ NOS CPT-4: J3301 08/11/2011 THER/PROPH/DIAG INJ SC/IM CPT-4: 19656 08/11/2011 ROUTINE VENIPUNCTURE CPT-4: 35068 07/03/2011 TRIAMCINOLONE ACET INJ NOS CPT-4: J3301 06/15/2011 THER/PROPH/DIAG INJ SC/IM CPT-4: 22240 06/15/2011 TRIAMCINOLONE ACET INJ NOS CPT-4: J3301 03/17/2011 THER/PROPH/DIAG INJ SC/IM CPT-4: 00918 03/17/2011 ROUTINE VENIPUNCTURE CPT-4: 90042 01/21/2011 DESTRUCT PREMALG LESION CPT-4: 06078 01/21/2011 ROUTINE VENIPUNCTURE CPT-4: 95500 11/25/2010 TRIAMCINOLONE ACET INJ NOS CPT-4: J3301 11/20/2010 THER/PROPH/DIAG INJ SC/IM CPT-4: 40503 11/20/2010 Vital Signs Date Vital 04/26/2017 Blood Pressure 1: 130/78 Code : 8480-6 BMI: 41.5 Code : 78361-7 Heart Rate 1 : 62 bpm Height: 5'3" SpO2: 96% Weight: 234 lbs 8 oz 01/11/2017 Blood Pressure 1: 148/86 Code : 8480-6 Blood Pressure 2: 132/84 Code: 8480-6 Heart Rate 1: 98 bpm SpO2: 98% 07/20/2016 Height: 5'3" 12/09/2015 Blood Pressure 1: 142/84 Code : 8480-6 BMI: 46.1 Code : 73542-7 Heart Rate 1 : 78 bpm Height: [...] Code : 8480-6 BMI: 44.1 Code : 33712-0 Heart Rate 1 : 55 bpm Height: 5'3" SpO2: 97% Waist Measure (cm): 117 cm Weight: 249 lbs 10/23/2013 Blood Pressure 1: 114/ Code : 8480-6 Heart Rate 1: 62 [...] Code : 8480-6 BMI: 43.2 Code : 69258-5 Heart Rate 1 : 56 bpm Height: 5'3" Respiratory Rate: 16 bpm Weight: 244 lbs 01/13/2012 Blood Pressure 1: 104/66 Code : 8480-6 BMI: 45.3 Code : 30942-9 Heart Rate 1 : 60 bpm Height: 5'3" Weight: 256 lbs 01/06/2012 Weight: 263 lbs 12/29/2011 Blood Pressure 1: 122/80 Code : 8480-6 BMI: 48.4 Code : 46052-2 Heart Rate 1 : 68 bpm Height: 5'3" Weight: 273 lbs 12/21/2011 Blood Pressure 1: 192/90 Code : 8480-6 Heart Rate 1: 55 bpm SpO2: 98% Weight: 273 lbs 11/25/2011 Blood Pressure 1: 132/80 Code : 8480-6 Heart Rate 1: 78 bpm Weight: 271 lbs 11/11/2011 Blood Pressure 1: 124/74 Code : 8480-6 BMI: 47.5 Code : 21030-9 Heart Rate 1 : 60 bpm Height: 5'3" Respiratory Rate: 16 bpm Weight: 268 lbs 10/21/2011 Blood Pressure 1: 130/84 Code : 8480-6 Heart Rate 1: 72 bpm Weight: 266 lbs 10/14/2011 Blood Pressure 1: 130/82 Code : 8480-6 BMI: 46.8 Code : 17434-5 Heart Rate 1 : 52 bpm Height: [...] Code : 8480-6 BMI: 46.8 Code : 42961-5 Heart Rate 1 : 60 bpm Height: [...] Code : 8480-6 BMI: 48.9 Code : 03337-6 Heart Rate 1 : 62 bpm Height: 5'3" Weight: 276 lbs 05/05/2011 Blood Pressure 1: 112/68 Code : 8480-6 BMI: 50.0 Code : 37222-9 Heart Rate 1 : 64 bpm Height: 5'3" Respiratory Rate: 16 bpm Weight: 282 lbs 04/07/2011 Blood Pressure 1: 122/66 Code : 8480-6 BMI: 50.0 Code : 98224-1 Heart Rate 1 : 62 bpm Height: 5'3" Respiratory Rate: 20 bpm Weight: 282 lbs 8 oz 03/17/2011 Blood Pressure 1: 136/72 Code : 8480-6 BMI: 50.0 Code : 35798-0 Height: 5'3" Respiratory Rate: 74 bpm SpO2: 96% Temperature: 36.9 (C) / 98.4 (F ) Weight: 282 lbs 01/21/2011 Blood Pressure 1: 136/84 Code : 8480-6 BMI: 50.0 Code : 52587-5 Heart Rate 1 : 56 bpm Height: 5'3" Waist Measure (cm): 124 cm Weight: 282 lbs 11/24/2010 Blood Pressure 1: 154/78 Code : 8480-6 Heart Rate 1: 60 bpm SpO2: 97% 11/20/2010 Blood Pressure 1: 172/84 Code : 8480-6 BMI: 50.3 Code : 85347-7 Heart Rate 1 : 56 bpm Height: 5'3" Respiratory Rate: 20 bpm SpO2: 98% Temperature: 36.8 (C) / 98.2 (F ) Weight: 284 lbs 11/06/2010 Blood Pressure 1: 117/47 Code : 8480-6 BMI: 50.1 Code : 49915-2 Heart Rate 1 : 75 bpm Height: 5'3" Weight: 283 lbs Functional Status No Functional Status data History of Present Illness Symptom Name Status Result Effective Date Notes Annual Medicare Wellness Exam Aspirin Use no [...] data Encounters Encounter Performer Location Codes Date ([id number]) Miscellaneous no charge Diagnosis: Essential (primary) hypertension[ICD10: I10] [facility] CPT-4: 58837 01/11/2017 ([id number]) Miscellaneous no charge Diagnosis: Other injury of unspecified body region[ICD10: T14.8] Lacy Do MD, [facility] CPT-4: 78061 10/08/2016 99456 EST. PATIENT, LEVEL II Diagnosis: Laceration without foreign body of right hand, initial encounter[ ICD10: S61.411A] Roberta Do MD, [facility] CPT-4: 25413 07/20/2016 ([id number]) 39784 EST. PATIENT, LEVEL III Diagnosis: Laceration without foreign body of right forearm, initial encounter[ ICD10: S51.811A] Roberta Do MD, [facility] CPT-4: 87271 09/09/2015 ([id number]) Miscellaneous no charge Diagnosis: Cellulitis of right upper limb[ICD10: L03.113] Roberta Do MD, [facility] CPT-4: 43421 08/02/2015 ([id number]) 08479 EST. PATIENT, LEVEL III Diagnosis: Essential (primary) hypertension[ICD10: I10] Diagnosis: Hypothyroidism, unspecified[ICD10: E03.9] Diagnosis: Vitamin D deficiency, unspecified[ICD10: E55.9] Roberta Do MD, [facility] CPT-4: 57496 06/11/2015 12196 EST. PATIENT, LEVEL III Diagnosis: Allergic rhinitis, unspecified[ICD10: J30.9] Roberta Do MD, [facility] CPT-4: 05433 12/11/2014 ([id number]) 72341 EST. PATIENT, LEVEL III Diagnosis: EDEMA[ICD9: 782.3] Diagnosis: Dyspnea[ICD9: 786.09] Roberta Do MD, [facility] CPT-4: 99724 10/23/2013 ([id number]) 38764 EST. PATIENT, LEVEL III Diagnosis: ACUTE MAXILLARY SINUSITIS[ICD9: 461.0] Diagnosis: COUGH[ICD9: 786.2] Roberta Do MD, [facility] CPT-4: 40921 04/14/2013 ([id number]) 74619 EST. PATIENT, LEVEL III Diagnosis: ACUTE SINUSITIS[ICD9: 461.9] Roberta Do MD [facility] CPT-4: 73757 04/11/2012 ([id number]) Miscellaneous no charge Diagnosis: ALLERGIC RHINITIS[ICD9: 477.9] Lacy Do MD [facility] CPT- 4: 31799 03/23/2012 ([id number]) 92981 EST. PATIENT, LEVEL III Diagnosis: ESSENTIAL HYPERTENSION[SNOMED: 15112992] Diagnosis: EDEMA[ICD9: 782.3] Lacy Do MD [facility] CPT-4: 63720 03/07/2012 ([id number]) 23098 EST. PATIENT, LEVEL III Diagnosis: ESSENTIAL HYPERTENSION[SNOMED: 12197208] Lacy Do MD [facility] CPT-4: 39691 01/13/2012 ([id number]) 66697 EST. PATIENT, LEVEL IV Diagnosis: ATRIAL FIBRILLATION[ICD9: 427.31] Diagnosis: EDEMA[ICD9: 782.3] Diagnosis: BACTERIAL PNEUMONIA[ICD9: 482.9] Lacy Do MD [facility] CPT-4: 54540 12/29/2011 ([id number]) Patient admitted to the hospital from clinic (NO CHARGE) Diagnosis: Pneumonia[ICD9: 486] Diagnosis: ESSENTIAL HYPERTENSION[SNOMED: 87602104] Diagnosis: Chest pain[ICD9: 786.50] Lacy Do MD [facility] CPT-4: 93400Y 12/21/2011 40313 EST. PATIENT, LEVEL II Diagnosis: Cellulitis of lip[ICD9: 528.5] Roberta Do MD [facility] CPT-4: 67877 11/25/2011 ([id number]) 99303 EST. PATIENT, LEVEL IV Diagnosis: ESSENTIAL HYPERTENSION[SNOMED: 50995331] Diagnosis: OBESITY[ICD9: 278.00] Diagnosis: Immunization, pneumococcus and influenza[ICD9: V06.6] Lacy Do MD [facility] CPT-4: 88797 11/11/2011 46095 EST. PATIENT, LEVEL III Diagnosis: ACUTE SINUSITIS[ICD9: 461.9] Lacy Do MD [facility] CPT- 4: 13463 10/21/2011 ([id number]) 88905 EST. PATIENT, LEVEL IV Diagnosis: Allergic rhinitis[ICD9: 477.9] Diagnosis: EDEMA[ICD9: 782.3] Diagnosis: OBESITY[ICD9: 278.00] Lacy Do MD [facility] CPT-4: 95362 10/14/2011 89252 EST. PATIENT, LEVEL IV Diagnosis: LUQ abdominal pain[ICD9: 789.02] Diagnosis: Aneurysm, splenic artery[ICD9: 442.83] Diagnosis: Hematuria[ICD9: 599.70] Lacy Do MD [facility] CPT-4: 77996 09/02/2011 11802 EST. PATIENT, LEVEL III Diagnosis: ALLERGIC RHINITIS[ICD9: 477.9] Diagnosis: COUGH[ICD9: 786.2] Diagnosis: EDEMA[ICD9: 782.3] Lacy Do MD [facility] CPT-4: 08217 08/10/2011 ([id number]) 67350 EST. PATIENT, LEVEL IV Diagnosis: Chronic sinusitis[ICD9: 473.9] Diagnosis: Otalgia[ICD9: 388.70] Diagnosis: Congestion of throat[ICD9: 784.99] Diagnosis: Benign essential tremor syndrome[ICD9: 333.1] Diagnosis: OBESITY[ICD9: 278.00] Lacy Do MD [facility] CPT-4: 14035 07/14/2011 ([id number]) 52864 EST. PATIENT, LEVEL IV Diagnosis: COUGH[ICD9: 786.2] Diagnosis: Dyspnea[ICD9: 786.09] Diagnosis: ESSENTIAL HYPERTENSION[SNOMED: 09517863] Lacy Do MD, [facility] CPT-4: 20843 07/02/2011 ([id number]) 03610 EST. PATIENT, LEVEL IV Diagnosis: ESSENTIAL HYPERTENSION[SNOMED: 17633317] Diagnosis: EDEMA[ICD9: 782.3] Diagnosis: BACTERIAL PNEUMONIA[ICD9: 482.9] Diagnosis: COUGH[ICD9: 786.2] Diagnosis: Hoarse[ICD9: 784.42] Lacy Do MD [facility] CPT-4: 91908 06/25/2011 ([id number]) Patient admitted to the hospital from clinic (NO CHARGE) Diagnosis: Pneumonia[ICD9: 486] Diagnosis: Hypoxemia[ICD9: 799.02] Diagnosis: Diarrhea[ICD9: 787.91] Lacy Do MD [facility] CPT-4: 37846V 06/16/2011 ([id number]) 04060 EST. PATIENT, LEVEL IV Diagnosis: ACUTE MAXILLARY SINUSITIS[ICD9: 461.0] Diagnosis: COUGH[ICD9: 786.2] Diagnosis: Diarrhea[ICD9: 787.91] Lacy Do MD [facility] CPT-4: 32459 06/15/2011 ([id number]) 85148 EST. PATIENT, LEVEL IV Diagnosis: BACTERIAL PNEUMONIA[ICD9: 482.9] Diagnosis: Cough[ICD9: 786.2] Diagnosis: Fatigue[ICD9: 780.79] Diagnosis: OBESITY[ICD9: 278.00] Lacy Do MD [facility] CPT-4: 91483 06/04/2011 ([id number]) 91236 EST. PATIENT, LEVEL III Diagnosis: ESSENTIAL HYPERTENSION[SNOMED: 22767100] Diagnosis: Knee pain, acute[ICD9: 719.46] Diagnosis: OBESITY[ICD9: 278.00] Lacy Do MD [facility] CPT-4: 48370 05/05/2011 ([id number]) 43894 EST. PATIENT, LEVEL IV Diagnosis: ESSENTIAL HYPERTENSION[SNOMED: 06253776] Diagnosis: OBESITY[ICD9: 278.00] Diagnosis: Atrial fibrillation[ICD9: 427.31] Lcay Do MD [facility] CPT-4: 85096 04/07/2011 ([id number]) 48055 EST. 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 PATIENT, LEVEL III Diagnosis: ESSENTIAL HYPERTENSION[SNOMED: 94642033] Diagnosis: ACUTE URI[ICD9: 465.9] Lacy Do MD, [facility] CPT-4: 26307 11/24/2010 24678 EST. PATIENT, LEVEL III Diagnosis: Acute maxillary sinusitis[ICD9: 461.0] Diagnosis: ESSENTIAL HYPERTENSION[SNOMED: 01963087] Diagnosis: ACUTE URI[ICD9: 465.9] Roberta Do MD, [facility] CPT-4: 53479 11/20/2010 17354 EST. PATIENT, LEVEL III Diagnosis: ACUTE MAXILLARY SINUSITIS[ICD9: 461.0] Roberta Do MD, [facility] CPT-4: 14305 11/06/2010 Plan of Care Planned Activity Notes Codes Status Date Appointment: Nurse Visit 11/03/2017 Appointment: Injection 11/03/2017 [...] Completed 04/26/2017 Care Plan: SCREENINGMAMMOGRAPHYDIGITAL LOINC : 30890-3 Pending 04/26/2017 Appointment: Injection 03/15/2017 Patient Education: [...] of infection. 07/20/2016 Appointment: Roberta Isaacs WPtel: [facility] [address] (15 min) Moderate 07/20/2016 Patient Education: [...] the home. 12/09/2015 Appointment: Roberta Isaacs WPtel: [facility] [address] [facility] - Annual Wellness Visit 12/09/2015 Patient [...] infection or other concerns. 09/09/2015 Appointment: Roberta Isaasc WPtel: [phone] [phone] (15 min) Moderate 09/09/2015 Patient Education: Patient [...] months 06/11/2015 Appointment: [phone] (15 min) Moderate 06/11/2015 Patient Education: Patient [...] THE OFFICE 12/11/2014 Appointment: Roberta Isaacs WPtel: [phone] (10 min) Simple 12/11/2014 Patient Education: [...] 12/04/2014 Care Plan: Referral Order SNOMED-CT : [id number] Ordered 12/04/2014 Patient Education: Patient Medication Summary Completed 11/22/2014 Care Plan: Urine Culture Cancelled 11/14/2014 Patient Education: Patient Medication Summary Completed 11/12/2014 Appointment: Lab Draw 11/08/2014 Patient Education: Patient Medication Summary Completed 11/08/2014 Visit Plan: Culture urine 07/30/2014 Appointment: Lab Draw 07/30/2014 Patient Education: Patient Medication Summary Completed 07/30/2014 Visit Plan: Xqqzw-iucgakx-hepy lasix 40mg daily x 3 days with potassium 20mEq BID x 3 days, then resume daily PRN schedule. If symptoms do not improve, we will obtain a chest xray. Recommend screening mammogram 10/23/2013 Patient Education: Patient Medication Summary Completed 10/23/2013 Appointment: Roberta Isaacs WPtel: [phone] Follow up 04/24/2013 Visit Plan: Sinusitis-cough- [...] morning. 03/07/2012 Appointment: [phone] [place] Follow up 03/07/2012 Patient Education: Patient Medication Summary Completed 03/07/2012 Patient Education: Hypertension Completed 03/07/2012 Patient Education: Patient Medication Summary Completed 03/02/2012 Patient Education: Hypertension Completed 03/02/2012 Appointment: [facility]acy Do WPtel: [phone] [place] Injection 02/11/2012 Patient Education: Patient Medication [...] given today. 01/13/2012 Appointment: Lacy Do WPtel: [address] [place], [place] [phone] Follow up 01/13/2012 Patient Education: Patient Medication Summary Completed 01/13/2012 Patient Education: High Blood Pressure: Essential Hypertension Completed 2011 Appointment: Lacy Do WPtel: [facility] Follow up 01/12/2012 Appointment: Lacy Do WPtel: [facility] Injection 01/06/2012 Patient Education: Patient Medication [...] the [facility]. 12/29/2011 Appointment: Lacy Do WPtel: [facility] Hospital follow up 12/29/2011 Patient Education: [...] pressure closely. 12/21/2011 Appointment: Roberta Isaacs WPtel: [phone] Other 12/21/2011 Patient Education: Patient [...] patient's pharmacy. 11/25/2011 Appointment: Roberta Isaacs WPtel: [phone] Work-in 11/25/2011 Patient Education: Patient [...] the office. 11/11/2011 Appointment: Roberta Isaacs WPtel: [phone] Injection 11/11/2011 Patient Education: Patient Medication Summary Completed 11/11/2011 Patient Education: High Blood Pressure: Essential Hypertension Completed 2011 Appointment: Lacy Do WPtel: [facility] [place] Injection 11/03/2011 Patient Education: Patient Medication [...] the office 10/21/2011 Appointment: Roberta Isaacs WPtel: [phone] Other 10/21/2011 Patient Education: Patient Medication Summary [...] weight check. 10/14/2011 Appointment: Roberta Isaacs WPtel: [phone] Other 10/14/2011 Patient Education: Patient Medication Summary Completed 10/14/2011 Patient Education: Patient Medication Summary Completed 10/07/2011 Patient Education: Patient Medication Summary Completed 09/22/2011 Patient Education: Patient Medication Summary Completed 09/16/2011 Visit Plan: Abdominal ksyv-IVF-urfl recent CT chest showed partially calcified aneurysm of splenic artery-Dr Do in to evaluate patient-plan to consult Dr. Vernon for further recommendations. Hematuria- culture urine 09/02/2011 Appointment: Roberta Isaacs WPtel: [phone] [phone] [place] Injection 09/02/2011 Appointment: Roberta Isaacs WPtel: [phone] Other 09/02/2011 Patient Education: Patient Medication Summary Completed 09/02/2011 Patient Education: Patient Medication Summary Completed 09/02/2011 Visit Plan: PT GIVEN ROUTINE ALLERGY SHOTS FOR DESENSITIZATION 08/26/2011 Patient Education: Patient Medication Summary Completed 08/26/2011 Visit Plan: Kenalog injection 08/11/2011 Appointment: Roberta Isaacs WPtel: [phone] Injection 08/11/2011 Patient Education: Patient Medication Summary [...] to thighs. 08/10/2011 Appointment: Lacy Do WPtel: [facility] Other 08/10/2011 Patient Education: Patient Medication [...] illness. 07/14/2011 Appointment: Lacy Do WPtel: [address] [place] [address] Other 07/14/2011 Patient Education: Patient Medication Summary [...] ten days. 07/02/2011 Appointment: Lacy Do WPtel: [facility] Other 07/02/2011 Patient Education: Patient Medication Summary [...] [facility]el[phone] [place] Other 06/25/2011 Patient Education: Patient Medication Summary Completed 06/25/2011 Patient Education: High Blood Pressure: Essential Hypertension Completed 2011 Visit Plan: Pneumonia/Hypoxemia-Dr. Do in to evaluate patient-plan to admit to the hospital for acute symptoms-plan to obtain labs and chest xray-plan to start IV abx and breathing treatments. 06/16/2011 Appointment: [facility] Isaacs [facility]Ptel[phone] [place] Follow up 06/16/2011 Patient Education: Patient Medication Summary Completed 06/16/2011 Visit Plan: Sinusitis/Cough - Pt has acute infection - pain in face, maxillary region, Pt informed to use decongestant, RX given to patient, sinus rinses also recommended. Call if symptoms do not show improvement. Diarrhea-RX for flagyl and lactobacillus-call if symptoms worsen or do not improve. 06/15/2011 Appointment: Roberta Isaacs [facility]Ptel[phone] [place] Other 06/15/2011 Patient Education: Patient [...] office or get her labs done at [facility] this week. She reports that her insurance company has not returned her phone calls despite her leaving multiple messages. I have obtained the phone number from the pt and will call tomorrow. 06/04/2011 Appointment: Lacy Do WPtel: [phone] [place] Other 06/04/2011 Patient Education: Patient Medication Summary Completed 06/04/2011 Visit Plan: 1800 CALORIE RESTRICTION EXERCISE BAND - use for 10 min on upper body and 5 min on lower body. Bring in the diet log from this past. month Continue with ibuprofen for the knee pain. HTN - controlled - no change in medications. 05/05/2011 Appointment: Lacy Do WPtel: [phone] [facility] Other 05/05/2011 Patient Education: Patient Medication [...] initiall instructed. 04/07/2011 Appointment: Lacy Do WPtel: [phone] [facility] [place] Other 04/07/2011 Patient Education: Patient [...] by Dr. Cueto. 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 Sinusitis - Pt has acute infection - pain in face, maxillary region, Pt informed to use decongestant, RX given to patient, sinus rinses also recommended. Call if symptoms do not show improvement. Kenalog injection today in the office. 03/17/2011 Appointment: Rober[facility] Isaacs [facility]Ptel[phone] [place] Other 03/17/2011 Patient Education: Patient [...] concerns. 01/21/2011 Appointment: Roberta Isaacs WPtel: [phone] Other 01/21/2011 Patient Education: Patient Medication [...] daily. 11/24/2010 Appointment: Roberta Isaacs WPtel: [phone] [place] [phone] Other 11/24/2010 Patient Education: Patient Medication Summary [...] verbalized understanding. 11/20/2010 Appointment: Roberta Isaacs WPtel: [address] [place] [address] Other 11/20/2010 Patient Education: Patient Medication Summary Completed 11/20/2010 Visit Plan: Sinusitis - Pt has acute infection - pain in face, maxillary region, Pt informed to use decongestant, RX given to patient, sinus rinses also recommended. Call if symptoms do not show improvement. Samples of nasonex and jamie provided as well. 11/06/2010 Appointment: Roberta Isaacs WPtel: [phone] [place] Other 11/06/2010 Patient Education: Patient Medication [...] office or get her labs done at [facility] this week. She reports that her [...] as had been initiall instructed. . Abdominal ocma-MRB-ckkq recent CT chest showed partially calcified aneurysm [...] for fasting labs. Biaxin prescription sent to [facility]-it is twice daily x 10 days. [...] by Dr. Cueto. 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 Sinusitis - Pt has acute infection - pain in face, maxillary region, Pt informed to use decongestant, RX given to patient, sinus rinses also recommended. Call if symptoms do not show improvement. Kenalog injection today in the office. . Sjgpl-rubetpa-jjci lasix 40mg daily x 3 days with potassium 20mEq BID x 3 days, then resume daily PRN schedule. If symptoms do not improve, we will obtain a chest xray. Recommend screening mammogram . PT GIVEN ROUTINE ALLERGY SHOTS FOR DESENSITIZATION . Kenalog injection
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
--- NOTE | 2018-06-03 08:35 | Anesthesia-General Post-Op ---
MAC Patient Condition Mental Status/LOC: Same as Preop Cardiovascular: Satisfactory Nausea/Vomiting: Absent Respiratory: Satisfactory Pain: Controlled Complications: Absent Post Op Complications Complications None Follow Up Care/Instructions Patient Instructions None needed. Anesthesiology Discharge Order Discharge Order Patient is doing well, no complaints, stable vital signs, no apparent adverse anesthesia problems. No complications reported per nursing. KAREN CROW CRNA Jun 03, 2018 08:35
== END 2018-06-03 08:22 | disposition home or self-care (01) ==
LOC: SDC 06:40
PROVIDERS: ATTEND Specialist
DX: H25.12 Age-related nuclear cataract, left eye (principal); I25.10 Atherosclerotic heart disease of native coronary artery without angina pectoris; I10 Essential (primary) hypertension; J45.909 Unspecified asthma, uncomplicated; G47.33 Obstructive sleep apnea (adult) (pediatric); E66.01 Morbid (severe) obesity due to excess calories; Z68.42 Body mass index [BMI] 45.0-49.9, adult; Z95.1 Presence of aortocoronary bypass graft; Z79.01 Long term (current) use of anticoagulants; Z79.899 Other long term (current) drug therapy; Z87.01 Personal history of pneumonia (recurrent); Z98.84 Bariatric surgery status

== ENCOUNTER → 2018-10-27 | Outpatient (CLI) | payer MEDICARE, OTHER ==
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
== END ==
LOC: RAD 09:16
PROVIDERS: ATTEND Nurse Practitioner Family
DX: M21.962 Unspecified acquired deformity of left lower leg (principal); W19.XXXA Unspecified fall, initial encounter
CPT/HCPCS: 73590

== ENCOUNTER → 2019-03-31 | Outpatient (CLI) | payer MEDICARE, OTHER ==
[~2019-03-31] MED LIST changes: -TRAM50TA2 PO; +TRM50T PO; -ZAFI20TA13 PO; +ZFR20T PO
[2019-03-31 07:43] LABS: BASOPHILS % (AUTO) 0 % (0-10); EOSINOPHILS % (AUTO) 0 % (0-10); HEMATOCRIT 43 % (35-52); HEMOGLOBIN 14.4 G/DL (11.5-16.0); LYMPHOCYTES # (AUTO) 2.2 X 10^3 (1.0-4.0); LYMPHOCYTES % (AUTO) 18 % (12-44); MEAN CORPUSCULAR HEMOGLOBIN 31 PG (25-34); MEAN CORPUSCULAR HGB CONC 34 G/DL (32-36); MEAN CORPUSCULAR VOLUME 93 FL (80-99); MEAN PLATELET VOLUME 11.6 FL (7.4-10.4); MONOCYTES # (AUTO) 0.6 X 10^3 (0.0-1.0); MONOCYTES % (AUTO) 5 % (0-12); NEUTROPHILS # (AUTO) 9.4 X 10^3 (1.8-7.8); NEUTROPHILS % (AUTO) 77 % (42-75); PLATELET COUNT 198 10^3/uL (130-400); RED CELL DISTRIBUTION WIDTH 13.3 % (10.0-14.5); WHITE BLOOD COUNT 12.3 10^3/uL (4.3-11.0)
[2019-03-31 08:07] LABS: ALBUMIN 3.5 GM/DL (3.2-4.5); BILIRUBIN,TOTAL 0.7 MG/DL (0.1-1.0); POTASSIUM 4.1 MMOL/L (3.6-5.0); TOTAL PROTEIN 6.2 GM/DL (6.4-8.2)
== END ==
LOC: LAB 07:23
PROVIDERS: ATTEND Nurse Practitioner Family
DX: Z12.31 Encounter for screening mammogram for malignant neoplasm of breast (principal); E55.9 Vitamin D deficiency, unspecified; I10 Essential (primary) hypertension; E78.5 Hyperlipidemia, unspecified
CPT/HCPCS: 36415; 80053; 80061; 82306; 84443; 85025

== ENCOUNTER → 2019-03-31 | Outpatient (CLI) | payer MEDICARE, OTHER ==
[~2019-03-31] MED LIST changes: +CATHETER FLUSH 10 ML SYR IV PRN; +HOLD METFORMIN - RECEIVED CONTRAST 20 ML VIAL IV SCH; +IOHEXOL 350 MG/ML 100 ML (OMNIPAQUE 350) VIAL IV ONE; +NS 100 ML (IVPB) BAG IV ONE
--- NOTE | 2019-03-31 11:16 | Diagnostic Imaging Report ---
EXAMINATION: CT angiography of the chest. TECHNIQUE: Contrast enhanced thin section helical images were obtained through the chest with intravenous contrast timed for the optimal opacification of the arterial structures per CTA protocol. Post-processing, reconstructions and interpretation of angiographic images of the vessels was performed. 3D MIP reconstructions were performed and reviewed. All CT scans use one or more of the following dose optimizing techniques: automated exposure control, MA and/or KvP adjustment based on a patient size and exam type, or iterative reconstruction. HISTORY: WHEEZING,COUGH COMPARISON: 05/11/2018 FINDINGS: There is no pulmonary embolism. The aorta is normal in caliber. There has been a median sternotomy. There is no edema or pneumonia. No pleural effusion. No pneumothorax. No suspicious nodules. Heart size is normal. There are mild coronary artery calcifications. No pericardial effusion. Aorta is normal in caliber. There is no axillary or supraclavicular lymphadenopathy. There is no mediastinal lymphadenopathy. Limited views of the upper abdomen show changes of gastric banding and absent gallbladder. There are no suspicious osseous lesions. IMPRESSION: 1. No pulmonary embolism, clear lungs. Dictated by: Dictated on workstation # [id number]
--- NOTE | 2019-03-31 11:47 | Diagnostic Imaging Report ---
PROCEDURE: US Venous Lower Ext Sai. TECHNIQUE: Multiple real-time grayscale images were obtained over the lower extremities in various projections, bilaterally. Additional duplex Doppler and color Doppler images were also obtained. INDICATION: Bilateral leg swelling. COMPARISON: There are no prior studies available for comparison. FINDINGS: There is generally good blood flow and compressibility at all levels of the deep venous system of each lower extremity. There is no sign of a deep venous thrombosis. IMPRESSION: There is no evidence for deep venous thrombosis of either lower extremity. Dictated by: Dictated on workstation # [id number]
== END ==
LOC: RAD 09:41
PROVIDERS: ATTEND Internal Medicine Critical Care Medicine
DX: J45.998 Other asthma (principal); J30.9 Allergic rhinitis, unspecified; M79.89 Other specified soft tissue disorders; Z98.890 Other specified postprocedural states
CPT/HCPCS: 71275; 93970

== ENCOUNTER → 2019-03-31 | Outpatient (CLI) | payer MEDICARE, OTHER ==
[~2019-03-31] MED LIST changes: -CATHETER FLUSH 10 ML SYR IV PRN; -HOLD METFORMIN - RECEIVED CONTRAST 20 ML VIAL IV SCH; -IOHEXOL 350 MG/ML 100 ML (OMNIPAQUE 350) VIAL IV ONE; -NS 100 ML (IVPB) BAG IV ONE
--- NOTE | 2019-03-31 12:50 | Diagnostic Imaging Report ---
Digital mammogram bilateral screening This study was compared to the prior exam of 12/12/2015 and 11/19/2014. There are no current complaints. The breasts are predominantly fatty. When compared to the prior study, there has been no significant change. There is no primary or secondary sign of malignancy noted. Impression: 1. There is no evidence for malignancy. 2. The patient should have her annual bilateral screening mammogram on schedule in March of 2020. ACR category 1. ACR BI-RADS Category 1: Negative. Result letter will be mailed to the patient. Note: At least 10% of breast cancer is not imaged by mammography. Dictated by: Dictated on workstation # [id number]
== END ==
LOC: RAD 10:58
PROVIDERS: ATTEND Nurse Practitioner Family
DX: Z12.31 Encounter for screening mammogram for malignant neoplasm of breast (principal); E55.9 Vitamin D deficiency, unspecified; I10 Essential (primary) hypertension; E78.5 Hyperlipidemia, unspecified
CPT/HCPCS: 77067

== ENCOUNTER 2019-04-18 11:48 | Inpatient (IN) | payer MEDICARE, OTHER ==
[~2019-04-18] VITALS: Ht 163 cm; Wt 123.0 kg
[~2019-04-18 11:48] MED LIST changes: -MONT10TA24 PO; +MONT10TA26 PO
[2019-04-18 12:04] VITALS: BP 175/82
[2019-04-18 12:05] VITALS: BP 175/82
[2019-04-18] MEDS ORDERED: methylPREDNISolone 125 MG (Solu-MEDROL) VIAL IVP NR (12:15)
[2019-04-18] MEDS ORDERED: RT-ALBUTEROL/IPRATROPIUM 3 ML (DUONEB) VIAL INH NR (12:15)
[2019-04-18] MEDS ORDERED: CATHETER FLUSH 10 ML SYR IV PRN (12:30)
--- NOTE | 2019-04-18 12:30 | NUR ---
EDILMA DO admitted to room 406-1, with an admitting diagnosis of fever, Resp distress, on 04/18/[address] Do's office via ambulatory, accompanied by family. EDILMA DO introduced to surroundings, call light, bed controls, phone, TV, temperature control, lights, meal times, smoking policy, visitor policy, side rail policy, bathrooms and showers. Patient Rights given to patient in the handbook. EDILMA DO verbalizes understanding that [facility] is not responsible for the loss or damage to any personal effects or valuables that are kept in the patients possession during their hospitalization. The following Patient Care Plans were discussed with the patient and family: Discharge Planning, medications, dehydration, and pain management. EDILMA DO verbalizes understanding of Interdisciplinary Patient Education. Patient and/or family were informed about the Rapid Response Team and its purpose.
--- NOTE | 2019-04-18 12:41 | Diagnostic Imaging Report ---
INDICATION: Wheezing. Possible pneumonia. COMPARISON: 05/14/2018 FINDINGS: Frontal and lateral views of the chest demonstrate normal heart size and pulmonary vascularity. The lungs are clear. There are no signs of infiltrate, pleural effusions or pneumothoraces. The visualized osseous structures show no acute abnormalities. Sternotomy wires are noted. IMPRESSION: 1. No acute process. No signs of infiltrates, effusions or pneumothoraces. Dictated by: Dictated on workstation # [id number]
--- NOTE | 2019-04-18 13:12 | History & Physicial ---
History of Present Illness History of Present Illness Reason for visit/HPI PT IS A 68 Y/O FEMALE WHO IS KNOWN TO ME FROM CLINIC. SHE WAS ADMITTED TO THE HOSPITAL FOR RESPIRATORY DISTRESS AFTER TWO DAYS OF ACUTE ILLNESS. ON WEDNESDAY SHE STARTED TO HAVE A COUGH, SHORTNESS OF BREATH, BEGAN HER BREATHING TREATMENTS AND WAS SEEN IN THE OFFICE ON WEDNESDAY. AT HER VISIT ON WEDNESDAY, SHE WAS GIVEN A KENALOG SHOT IN THE OFFICE. SHE THEN PRESENTED TO THE OFFICE TODAY WITH DY SPNEA, WHEEZING, AND IN DISTRESS DUE TO DIFFICULTY BREATHING. Date of Admission Apr 18, 2019 at 11:48 Date Seen by a Provider: Apr 18, 2019 Time Seen by a Provider: 13:00 I consulted on this patient on 04/18/19 13:00 Attending Physician Monika Do MD Admitting Physician Monika Do MD Consult DR. GARZA Allergies and Home Medications Allergies Coded Allergies: apixaban (Verified Allergy, Severe, HIVES, 05/12/18) olmesartan (Verified Allergy, Severe, HIVES, 05/12/18) doxycycline (Verified Allergy, Intermediate, HIVES, 05/12/18) SWELLING, HIVES Penicillins (Verified Allergy, Unknown, PT CAN TAKE KEFLEX, 05/12/18) Sulfa (Sulfonamide Antibiotics) (Verified Allergy, Unknown, 05/12/18) Tetanus Vaccines and Toxoid (Verified Allergy, Unknown, 05/12/18) codeine (Verified Allergy, Unknown, 05/12/18) levofloxacin (Verified Allergy, Unknown, HIVES, 05/12/18) CAN TAKE LONG SHE ALSO TAKES BENADRYL morphine (Verified Allergy, Unknown, 05/12/18) Home Medications Alprazolam 0.25 Mg Tablet, 0.25 MG PO Q4 -6H PRN for ANXIETY, (Reported) Benzonatate 100 Mg Capsule, 100 MG PO TID PRN for COUGH, (Reported) Cholecalciferol (Vitamin D3) 125 Mcg Tablet, 125 MCG PO DAILY, (Reported) Cyclosporine 1 Each [place], 1 DROP OU BID, (Reported) Doxazosin Mesylate 2 Mg Tablet, 2 MG PO Q12H, (Reported) Ergocalciferol (Vitamin D2) 1,250 Mcg Capsule, 1,250 MCG PO WEDNESDAY, (Reported) Fluticasone Propionate 9.9 Ml [place].susp, 2 SPRAY NS DAILY, (Reported) 2 SPRAYS PER NOSTRIL DAILY X 2 DAYS THEN 1 SPRAY DAILY Fluticasone/Vilanterol 1 Each Blst.w.dev, 1 PUFF INH DAILY, (Reported) Furosemide 40 Mg Tablet, 40 MG PO DAILY, (Reported) Guaifenesin 600 Mg Tab.er.12h, 600 MG PO Q12H PRN for CONGESTION, (Reported) Ipratropium/Albuterol Sulfate 3 Ml Ampul.neb, 3 ML IH Q6H PRN for SHORTNESS OF BREATH, (Reported) Loratadine 10 Mg Tablet, 10 MG PO DAILY PRN for ALLERGIES, (Reported) Loteprednol Etabonate 5 Ml Drops, 1 DROP OU BID, (Reported) Metoprolol Tartrate 50 Mg Tablet, 50 MG PO BID, (Reported) Montelukast Sodium 10 Mg Tablet, 10 MG PO HS, (Reported) Oseltamivir Phosphate 75 Mg Capsule, 75 MG PO BID, (Reported) Potassium Chloride 10 Meq Capsule.er, 10 MEQ PO Q12H, (Reported) Rivaroxaban 20 Mg Tablet, 20 MG PO DAILY, (Reported) Sucralfate 1 Gm Tablet, 1 GM PO ACHS PRN for INDIGESTION, (Reported) Tiotropium [place] 1 Inh Aerp, 1 CAP IH DAILY, (Reported) Zafirlukast 20 Mg Tablet, 20 MG PO BID, (Reported) Patient Home Medication List Home Medication List Reviewed: Yes Past Qrzvxdt-Tyyymt-Nkutbt Hx Patient Social History Marrital Status: Number of Children: 2 Number of living children: 2 Living Status: LIVES AT HOME WITH HER SPOUSE IN [place] Employed/Student: 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[employer], 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[employer]) Alcohol Use: Denies Use Smoking Status: Never a Smoker 2nd Hand Smoke Exposure: No Physical Abuse Screen: No Sexual Abuse: No Recent Foreign Travel: No Contact w/other who traveled: Yes (family friend went on cruise, was tested for virus, negative) Recent Hopitalizations: No Recent Infectious Disease Expo: Yes (in contact with flu) Immunizations Up To Date Date of Pneumonia Vaccine: Dec 09, 2016 Date of Influenza Vaccine: Nov 02, 2018 Seasonal Allergies Seasonal Allergies: Yes Surgeries Yes (LAP BAND, CATARACTS) Cardiac (ANOMOLOUS LEFT MAIN CORONARY WAS BYPASSED), Gallbladder, Hysterectomy, Joint Replacement Respiratory Yes Emphysema, Pneumonia Currently Using CPAP: Yes (AT NIGHT) Currently Using BIPAP: No Cardiovascular Yes (HX OF OPEN HEART SURGERY) Hypertension Neurological No Reproductive System : No Hx Reproductive Disorders: Yes Sexually Transmitted Disease: No HIV/AIDS: No Female Reproductive Disorders: Endometriosis 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 Genitourinary No Gastrointestinal Yes Esophagitis Musculoskeletal Yes Arthritis Endocrine History of Endocrine Disorders: No HEENT HEENT Disorders: Cataract Cancer No Psychosocial History of Psychiatric Problem: Yes Behavioral Health Disorders: Anxiety Integumentary History of Skin or Integumenta: No Blood Transfusions History of Blood Disorders: No Adverse Reaction to a Blood Tr: No Reviewed Nursing Assessment Reviewed/Agree w Nursing PMH: Yes Family Medical History Significant Family History: Heart Disease, Cancer, Hypertension, Renal Disease Family Hx: FH: COPD (chronic obstructive pulmonary disease) 19 MOTHER Kidney disease 19 MOTHER Review of Systems Constitutional: No chills; fever, malaise, weakness EENTM: No hoarseness, No throat pain Respiratory: cough, dyspnea on exertion, short of breath, wheezing Cardiovascular: No chest pain; Hx of Intervention; No palpitations Gastrointestinal: No abdominal pain, No constipation, No diarrhea, No nausea, No vomiting Genitourinary: no symptoms reported Musculoskeletal: No back pain, No muscle pain; muscle weakness Skin: No no symptoms reported Psychiatric/Neurological: Anxiety; Denies Depressed; Weakness All Other Systems Reviewed Negative Unless Noted: Yes Physical Exam Vital Signs Vital Signs - First Documented 04/18/19 04/18/19 04/18/19 12:04 14:07 14:37 Temp 36.3 Pulse 88 Resp 22 B/P (MAP) 175/82 (113) Pulse Ox 93 O2 Delivery Room Air O2 Flow Rate 2.00 FiO2 28 Capillary Refill : Height, Weight, BMI Height: 5'4.50" Weight: 263lbs. 5.0oz. 119.296672nf; 46.29 BMI Method:Stated General Appearance: WD/WN, Moderate Distress (DUE TO BREATHING) Eyes: Bilateral Eye Normal Inspection, Bilateral Eye PERRL, Bilateral Eye EOMI HEENT: PERRL/EOMI, Other (DENTURES) Neck: Full Range of Motion, Normal Inspection, Non Tender, Supple Respiratory: Chest Non Tender, Crackles, Decreased Breath Sounds, Respiratory Distress (DUE TO DIFFICULTY BREATHING), Wheezing Cardiovascular: Regular Rate, Rhythm, No Murmur, Normal Peripheral Pulses, Other (EDEMA OF ANKLES) Gastrointestinal: Normal Bowel Sounds, Non Tender, Soft Rectal: Deferred Back: Normal Inspection Extremity: Normal Capillary Refill, Pedal Edema Neurologic/Psychiatric: Alert, Oriented x3, No Motor/Sensory Deficits, Normal Mood/Affect, senior solutions workflow consultant II-XII Norm as Tested Skin: Normal Color, Warm/Dry Lymphatic: No Adenopathy Assessment/Plan Assessment and Plan RESPIRATORY DISTRESS INFLUENZA A POSITIVE STATUS ASTHMA WITH ACUTE EXACERBATION HYPERTENSION ATRIAL FIBRILLATION EDEMA OBSTRUCTIVE SLEEP APNEA MORBID OBESITY RESPIRATORY DISTRESS DUE TO INFLUENZA A POSITIVE STATUS - OXYGEN AT 2 LITERS NC - PT WAS PLACED ON TAMIFLU ON WEDNESDAY AFTER EXPOSURE WEDNESDAY EVENING TO AN INFLUENZA A POSITIVE INDIVIDUAL. - CONTINUE WITH TAMIFLU - CHEST XRAY NEGATIVE - DR. GARZA CONSULTED, WILL DISCUSS BRONCHOSCOPY, WILL DO CT SCAN DURING THIS HOSPITALIZATION ASTHMA WITH ACUTE EXACERBATION - BREATHING TREATMENTS - STARTED ALBUTEROL, MAY HAVE TO CONSIDER CHANGING TO XOPENEX SINCE SHE GETS REALLY ANXIOUS WITH ALBUTEROL, WILL GIVE A FEW TREATMENTS BEFORE MAKING THE CHANGE. HYPERTENSION - RESTARTED HOME REGIMEN, METOPROLOL, DOXAZOSIN. ATRIAL FIBRILLATION - RESTART XARELTO, TOPROL EDEMA - WILL GIVE IV LASIX OBSTRUCTIVE SLEEP APNEA - RESTART USE OF CPAP TONIGHT. MORBID OBESITY DVT PROPHYLAXIS WITH SCD'S AND XARELTO GI PROPHYLAXIS WITH ORAL PPI Admission Diagnosis RESPIRATORY DISTRESS INFLUENZA A POSITIVE STATUS ASTHMA WITH ACUTE EXACERBATION HYPERTENSION ATRIAL FIBRILLATION EDEMA OBSTRUCTIVE SLEEP APNEA MORBID OBESITY Admission Status: Inpatient Order (span 2 midnights) Reason for Inpatient Admission: INPATIENT ADMISSION GREATER THAN 48 HOURS DUE TO ASTHMA EXACERBATION WITH PNEUMONIA AND INFLUENZA A Clinical Quality Measures DVT/VTE Risk/Contraindication: Risk Factor Score Per Nursin RFS Level Per Nursing on Admit: 4+=Very High MONIKA DO MD Apr 18, 2019 13:12
[2019-04-18 13:28] LABS: BASOPHILS % (AUTO) 0 % (0-10); EOSINOPHILS # (AUTO) 0.2 10^3/uL (0.0-0.3); EOSINOPHILS % (AUTO) 2 % (0-10); HEMATOCRIT 41 % (35-52); HEMOGLOBIN 13.2 G/DL (11.5-16.0); LYMPHOCYTES # (AUTO) 0.9 X 10^3 (1.0-4.0); LYMPHOCYTES % (AUTO) 12 % (12-44); MEAN CORPUSCULAR HEMOGLOBIN 31 PG (25-34); MEAN CORPUSCULAR HGB CONC 33 G/DL (32-36); MEAN CORPUSCULAR VOLUME 95 FL (80-99); MEAN PLATELET VOLUME 11.3 FL (7.4-10.4); MONOCYTES # (AUTO) 0.7 X 10^3 (0.0-1.0); MONOCYTES % (AUTO) 9 % (0-12); NEUTROPHILS % (AUTO) 77 % (42-75); PLATELET COUNT 172 10^3/uL (130-400); RED CELL DISTRIBUTION WIDTH 13.3 % (10.0-14.5); WHITE BLOOD COUNT 7.7 10^3/uL (4.3-11.0)
[2019-04-18] MEDS ORDERED: meTOprolol TARTRATE 25 MG (LOPRESSOR) TABLET PO NR (13:30)
[2019-04-18] MEDS ORDERED: methylPREDNISolone 40 MG/ML (Solu-MEDROL) VIAL IV SCH (13:44)
[2019-04-18 13:49] LABS: ALBUMIN 3.6 GM/DL (3.2-4.5); BILIRUBIN,TOTAL 0.7 MG/DL (0.1-1.0); CALCIUM 9.3 MG/DL (8.5-10.1); CREATININE SERUM 1.1 MG/DL (0.60-1.30); POTASSIUM 3.6 MMOL/L (3.6-5.0); TOTAL PROTEIN 6.4 GM/DL (6.4-8.2)
[2019-04-18] MEDS ORDERED: RT-ALBUTEROL/IPRATROPIUM 3 ML (DUONEB) VIAL INH PRN (14:00)
[2019-04-18 14:07] VITALS: BP 175/82
[2019-04-18] MEDS: MEROPENEM 500 MG in WATER (STERILE) FOR INJECTION 10 ML IV SCH ×3 (14:13→23:35)
[2019-04-18] MEDS: diphenhydrAMINE 50 MG/ML INJ (BENADRYL) IVP SCH ×3 (14:14→23:36)
[2019-04-18] MEDS: CATHETER FLUSH 10 ML SYR IV SCH ×2 (14:28→20:57)
[2019-04-18] MEDS: ALPRAZolam 0.5 MG (XANAX) TAB PO SCH ×2 (14:28→20:52)
--- NOTE | 2019-04-18 15:05 | Pulmonary Consultation ---
History of Present Illness History of Present Illness Date Seen by Provider: Apr 18, 2019 Time Seen by Provider: 15:04 Date of Admission Allergies and Home Medications Allergies Coded Allergies: apixaban (Verified Allergy, Severe, HIVES, 05/12/18) olmesartan (Verified Allergy, Severe, HIVES, 05/12/18) doxycycline (Verified Allergy, Intermediate, HIVES, 05/12/18) SWELLING, HIVES Penicillins (Verified Allergy, Unknown, PT CAN TAKE KEFLEX, 05/12/18) Sulfa (Sulfonamide Antibiotics) (Verified Allergy, Unknown, 05/12/18) Tetanus Vaccines and Toxoid (Verified Allergy, Unknown, 05/12/18) codeine (Verified Allergy, Unknown, 05/12/18) levofloxacin (Verified Allergy, Unknown, HIVES, 05/12/18) CAN TAKE LONG SHE ALSO TAKES BENADRYL morphine (Verified Allergy, Unknown, 05/12/18) Home Medications Alprazolam 0.25 Mg Tablet, 0.25 MG PO BID, (Reported) Dextromethorphn/Acetaminoph/Cp 1 Each Tablet, 2 TAB PO Q4H PRN for FLU LIKE SYMPTOMS, (Reported) Diphenhydramine HCl 25 Mg Tablet, 25 MG PO DAILY PRN for WHEN TAKING LEVOFLOXACIN, (Reported) Doxazosin Mesylate 4 Mg Tablet, 2 MG PO BID Prescribed by: BRITTON GARZA on 05/21/18926 Fluticasone/Vilanterol 1 Each Blst.w.dev, 1 PUFF INH DAILY, (Reported) Furosemide 20 Mg Tablet, 20 MG PO DAILY, (Reported) Guaifenesin 600 Mg Tab.er.12h, 600 MG PO Q12H PRN for CONGESTION, (Reported) Levalbuterol HCl 1.25 Mg/3 Ml Vial.neb, 1.25 MG INH RTQ4HR PRN for DYSPNEA every 4 hours as need for wheezing, SOB, cough. Prescribed by: BRITTON GARZA on 05/21/18926 Loratadine 10 Mg Tablet, 10 MG PO DAILY PRN for ALLERGIES, (Reported) Metoprolol Tartrate 50 Mg Tablet, 25 MG PO BID, (Reported) TAKES 1/2 (50MG) TABLET Montelukast Sodium 10 Mg Tablet, 10 MG PO HS Prescribed by: BRITTON GARZA on 05/21/18942 Polymyxin B Sulf/Trimethoprim 10 Ml Drops, 1 DROP OD QID, (Reported) Prednisolone Acetate 5 Ml Drops.susp, 1 DROP OD QID, (Reported) Rivaroxaban 20 Mg Tablet, 20 MG PO DAILY, (Reported) LAST FILLED #30 02-14-18 Sucralfate 1 Gm Tablet, 1 GM PO ACHS PRN for INDIGESTION, (Reported) Tiotropium [place] 1 Inh Aerp, 1 CAP IH DAILY, (Reported) Tramadol HCl 50 Mg Tablet, 50 MG PO Q6H PRN for PAIN-MODERATE, (Reported) Zafirlukast 20 Mg Tablet, 20 MG PO BID, (Reported) Past Kzopgas-Uryhmm-Wysivt Hx Patient Social History 2nd Hand Smoke Exposure: No Recent Foreign Travel: No Contact w/Someone Who Travel: Yes (family friend went on cruise, was tested for virus, negative) Recent Infectious Disease Expo: Yes (in contact with flu) Recent Hopitalizations: No Immunizations Up To Date Date of Pneumonia Vaccine: Dec 09, 2016 Date of Influenza Vaccine: Nov 02, 2018 Seasonal Allergies Seasonal Allergies: Yes Past Medical History Surgeries: Yes (LAP BAND, CATARACTS) Cardiac, Gallbladder, Hysterectomy, Joint Replacement Respiratory: Yes Asthma, Pneumonia Currently Using CPAP: Yes (AT NIGHT) Currently Using BIPAP: No Cardiac: Yes (HX OF OPEN HEART SURGERY) Hypertension Neurological: No Reproductive Disorders: Yes Female Reproductive Disorders: Endometriosis Genitourinary: No Gastrointestinal: No Musculoskeletal: No Endocrine: No Cataract Cancer: No Psychosocial: Yes Anxiety Integumentary: No Blood Disorders: No Adverse Reaction/Blood Tranf: No Family Medical History FH: COPD (chronic obstructive pulmonary disease) 19 MOTHER Kidney disease 19 MOTHER Cancer, Hypertension, Renal Disease Sepsis Event Evaluation Height, Weight, BMI Height: 5'4.50" Weight: 263lbs. 5.0oz. 119.379587rf; 46.29 BMI Method:Stated Exam Exam Vital Signs Date Time Temp Pulse Resp B/P (MAP) Pulse Ox O2 Delivery O2 Flow Rate FiO2 04/18/19 14:37 97 Nasal Cannula 2.00 04/18/19 14:07 36.3 73 97 28 04/18/19 12:05 36.3 88 22 175/82 93 Room Air 04/18/19 12:04 36.3 88 22 175/82 (113) 93 Room Air Height & Weight Height: 5'4.50" Weight: 263lbs. 5.0oz. 119.116911kd; 46.29 BMI Method:Stated Results Lab Laboratory Tests 04/18/19 13:20 Assessment/Plan Assessment/Plan AsthmaAE -Duoneb Q 6 -Solumedrol 40 Q 6 SKYLER -Use home CPAP machine BRITTON GARZA DO Apr 18, 2019 15:05
[2019-04-18 15:13] LABS: MAGNESIUM 1.8 MG/DL (1.6-2.4); PHOSPHORUS 3.5 MG/DL (2.3-4.7)
[2019-04-18] MEDS ORDERED: OSEL75CA15 PO (15:40)
[2019-04-18] MEDS ORDERED: RIVA20TA2 PO (15:40)
[2019-04-18] MEDS ORDERED: NF-LOTEOS OU (15:40)
[2019-04-18] MEDS ORDERED: ERGO50006 PO (15:40)
[2019-04-18] MEDS ORDERED: DOXA2TAB2 PO (15:40)
[2019-04-18] MEDS ORDERED: POTA10CA43 PO (15:40)
[2019-04-18] MEDS ORDERED: CYCL1DRO OU (15:40)
[2019-04-18] MEDS ORDERED: BENZ100C18 PO (15:40)
[2019-04-18] MEDS ORDERED: FURO40TA4 PO (15:40)
[2019-04-18] MEDS ORDERED: FLUT9.9S NS (15:41)
[2019-04-18] MEDS ORDERED: CALC-250 PO (15:41)
[2019-04-18] MEDS ORDERED: MONT10TA26 PO (15:42)
[2019-04-18] MEDS ORDERED: IPRA3AMP31 IH (15:48)
--- NOTE | 2019-04-18 15:49 | NUR ---
SPOKE WITH THE PT (SHE HAD ALL HER HOME MEDS) AND WENT THRU THE EXT MED HISTORY TO COMPLETE THE MED REC. PT WAS KNOWLEDGEABLE ON HER MEDS AND WAS ABLE TO TELL ME HOW/WHEN SHE TAKES EACH MED. 04-17-2019 RACHELLEB WAS PICKED UP AT [facility] AND IS NOT SHOWN ON THE EXT MED HISTORY. ALL OTHER MEDS ON THE EXT MED HISTORY AND MATCH HOW THE PT TAKES OTC MEDS: FLONASE CLARITIN MUCINEX VIT D
[2019-04-18 16:00] VITALS: BP 117/61
[2019-04-18] MEDS ORDERED: BENZONATATE 100 MG (TESSALON) CAPSULE PO PRN (16:15)
[2019-04-18] MEDS ORDERED: SUCRALFATE 1 GM (CARAFATE) TAB PO PRN (16:15)
[2019-04-18] MEDS ORDERED: guaiFENesin (MUCINEX) 600 MG TAB PO PRN (16:15)
[2019-04-18] MEDS ORDERED: NON-FORMULARY MEDICATION 1 EA EA (Potassium Chloride 10 MEQ) PO SCH (16:15)
[2019-04-18] MEDS ORDERED: ENOXAPARIN 40 MG/0.4 ML (LOVENOX) SYR SC SCH (16:30)
[2019-04-18] MEDS ORDERED: ARTIFICAL TEARS 0.4 ML UNIT DOSE (REFRESH PLUS) OU PRN (17:00)
[2019-04-18] MEDS: KCL 10 MEQ TAB (MICRO K) PO SCH (18:07)
[2019-04-18] MEDS: methylPREDNISolone 40 MG/ML (Solu-MEDROL) VIAL IV SCH ×2 (18:09→23:36)
[2019-04-18 20:05] VITALS: BP 132/60
[2019-04-18] MEDS: OSELTAMIVIR 75 MG (TAMIFLU) CAPSULE PO SCH (20:52)
[2019-04-18] MEDS: meTOprolol TARTRATE 50 MG (LOPRESSOR) TAB PO SCH (20:52)
[2019-04-18] MEDS: doxAzosin 2 MG (CARDURA) TAB PO SCH (20:52)
[2019-04-18] MEDS ORDERED: NON-FORMULARY MEDICATION 1 EA EA (Cyclosporine (Restasis) 1 DROP) OU SCH (21:00)
[2019-04-18] MEDS ORDERED: MONTELUKAST 10 MG (SINGULAIR) TAB PO SCH ×2 (21:00)
[2019-04-18] MEDS: RT-ALBUTEROL/IPRATROPIUM 3 ML (DUONEB) VIAL INH SCH ×2 (21:13→21:34)
[2019-04-18 23:43] VITALS: BP 124/57
[2019-04-19] MEDS: RT-ALBUTEROL/IPRATROPIUM 3 ML (DUONEB) VIAL INH SCH ×6 (03:01→22:25)
[2019-04-19 04:00] VITALS: BP 126/62
[2019-04-19] MEDS: CATHETER FLUSH 10 ML SYR IV SCH ×3 (06:20→20:50)
[2019-04-19] MEDS: MEROPENEM 500 MG in WATER (STERILE) FOR INJECTION 10 ML IV SCH ×3 (06:20→17:51)
[2019-04-19] MEDS: methylPREDNISolone 40 MG/ML (Solu-MEDROL) VIAL IV SCH ×3 (06:20→17:50)
[2019-04-19] MEDS: RIVAROXABAN 20 MG TABLET (XARELTO) PO SCH (06:21)
[2019-04-19] MEDS: diphenhydrAMINE 50 MG/ML INJ (BENADRYL) IVP SCH ×3 (06:21→17:51)
[2019-04-19] MEDS: KCL 10 MEQ TAB (MICRO K) PO SCH ×2 (06:21→17:51)
[2019-04-19 06:32] LABS: HEMOGLOBIN 12.6 G/DL (11.5-16.0); MEAN PLATELET VOLUME 11.5 FL (7.4-10.4); RED CELL DISTRIBUTION WIDTH 13.1 % (10.0-14.5); WHITE BLOOD COUNT 6.6 10^3/uL (4.3-11.0)
[2019-04-19 06:57] LABS: CALCIUM 9.3 MG/DL (8.5-10.1); CREATININE SERUM 1.01 MG/DL (0.60-1.30); POTASSIUM 4.1 MMOL/L (3.6-5.0)
[2019-04-19 07:49] VITALS: BP 128/60
[2019-04-19] MEDS ORDERED: RT-ADVAIR HFA 115/21 MCG PER PUFF IH SCH (08:00)
[2019-04-19] MEDS: LORATADINE (CLARITIN) 10 MG TAB PO SCH (08:06)
[2019-04-19] MEDS: doxAzosin 2 MG (CARDURA) TAB PO SCH ×2 (08:06→20:46)
[2019-04-19] MEDS: VITAMIN D3 125 MCG (5,000 UNITS) CAPSULE PO SCH (08:06)
[2019-04-19] MEDS: OSELTAMIVIR 75 MG (TAMIFLU) CAPSULE PO SCH ×2 (08:06→20:46)
[2019-04-19] MEDS: PANTOPRAZOLE 20 MG TABLET (PROTONIX) PO SCH (08:07)
[2019-04-19] MEDS: ALPRAZolam 0.5 MG (XANAX) TAB PO SCH ×3 (08:07→20:46)
[2019-04-19] MEDS: meTOprolol TARTRATE 50 MG (LOPRESSOR) TAB PO SCH ×2 (08:07→20:46)
[2019-04-19] MEDS ORDERED: NON-FORMULARY MEDICATION 1 EA EA (Fluticasone Propionate (Flonase Allergy Relief) 2 SPRAY) NS SCH (09:00)
[2019-04-19] MEDS ORDERED: NON-FORMULARY MEDICATION 1 EA EA (Fluticasone/Vilanterol (Breo Ellipta 200-25 Mcg INH) 1 P INH SCH (09:00)
[2019-04-19] MEDS ORDERED: TIOTROPIUM BROMIDE (SPIRIVA) 5'S INHALER IH SCH (09:00)
--- NOTE | 2019-04-19 09:06 | Progress Note ---
Subjective Subjective Date Seen by Provider: Apr 19, 2019 Time Seen by Provider: 08:55 All Other Systems Reviewed All Other Systems Reviewed: Yes Objective Exam Vital Signs Vital Signs - First Documented 04/18/19 04/18/19 04/18/19 12:04 14:07 14:37 Temp 36.3 Pulse 88 Resp 22 B/P (MAP) 175/82 (113) Pulse Ox 93 O2 Delivery Room Air O2 Flow Rate 2.00 FiO2 28 Capillary Refill : Less Than 3 SecondsLess Than 3 Seconds General Appearance: WD/WN, Moderate Distress (DUE TO BREATHING) Eyes: Bilateral Eye Normal Inspection, Bilateral Eye PERRL, Bilateral Eye EOMI HEENT: PERRL/EOMI, Other (DENTURES) Neck: Full Range of Motion, Normal Inspection, Non Tender, Supple Respiratory: Chest Non Tender, Crackles, Decreased Breath Sounds, Respiratory Distress (DUE TO DIFFICULTY BREATHING), Wheezing Cardiovascular: Regular Rate, Rhythm, No Murmur, Normal Peripheral Pulses, Other (EDEMA OF ANKLES) Gastrointestinal: Normal Bowel Sounds, Non Tender, Soft Rectal: Deferred Back: Normal Inspection Extremity: Normal Capillary Refill, Pedal Edema Neurologic/Psychiatric: Alert, Oriented x3, No Motor/Sensory Deficits, Normal Mood/Affect, inside b2b sales II-XII Norm as Tested Skin: Normal Color, Warm/Dry Lymphatic: No Adenopathy Results Lab Laboratory Tests 04/18/19 13:20: White Blood Count 7.7, Red Blood Count 4.26L, Hemoglobin 13.2, Hematocrit 41, Mean Corpuscular Volume 95, Mean Corpuscular Hemoglobin 31, Mean Corpuscular Hemoglobin Concent 33, Red Cell Distribution Width 13.3, Platelet Count 172, Mean Platelet Volume 11.3H, Neutrophils (%) (Auto) 77H, Lymphocytes (%) (Auto) 12, Monocytes (%) (Auto) 9, Eosinophils (%) (Auto) 2, Basophils (%) (Auto) 0, Neutrophils # (Auto) 6.0, Lymphocytes # (Auto) 0.9L, Monocytes # (Auto) 0.7, Eosinophils # (Auto) 0.2, Basophils # (Auto) 0.0, Sodium Level 139, Potassium Level 3.6, Chloride Level 104, Carbon Dioxide Level 24, Anion Gap 11, Blood Urea Nitrogen 14, Creatinine 1.10, Estimat Glomerular Filtration Rate 49, BUN/C reatinine Ratio 13, Glucose Level 125H, Calcium Level 9.3, Corrected Calcium 9.6, Phosphorus Level 3.5, Magnesium Level 1.8, Total Bilirubin 0.7, Aspartate Amino Transf (AST/SGOT) 21, Alanine Aminotransferase (ALT/SGPT) 29, Alkaline Ph osphatase 98, Total Protein 6.4, Albumin 3.6 04/19/19 06:10: White Blood Count 6.6, Red Blood Count 3.99L, Hemoglobin 12.6, Hematocrit 38, Mean Corpuscular Volume 95, Mean Corpuscular Hemoglobin 32, Mean Corpuscular Hemoglobin Concent 33, Red Cell Distribution Width 13.1, Platelet Count 185, Mean Platelet Volume 11.5H, Sodium Level 139, Potassium Level 4.1, Chloride Level 106, Carbon Dioxide Level 25, Anion Gap 8, Blood Urea Nitrogen 14, Creatinine 1.01, Estimat Glomerular Filtration Rate 54, BUN/Creatinine Ratio 14, Glucose Level 179H, Calcium Level 9.3 Microbiology 04/18/19 Influenza Types A,B Antigen (DOUG) - Final, Complete Assessment/Plan Assessment/Plan Admission Dx RESPIRATORY DISTRESS INFLUENZA A POSITIVE STATUS ASTHMA WITH ACUTE EXACERBATION HYPERTENSION ATRIAL FIBRILLATION EDEMA OBSTRUCTIVE SLEEP APNEA MORBID OBESITY Admission Dx RESPIRATORY DISTRESS INFLUENZA A POSITIVE STATUS ASTHMA WITH ACUTE EXACERBATION HYPERTENSION ATRIAL FIBRILLATION EDEMA OBSTRUCTIVE SLEEP APNEA MORBID OBESITY Clinical Quality Measures Admission Status Admission Dx RESPIRATORY DISTRESS INFLUENZA A POSITIVE STATUS ASTHMA WITH ACUTE EXACERBATION HYPERTENSION ATRIAL FIBRILLATION EDEMA OBSTRUCTIVE SLEEP APNEA MORBID OBESITY DVT/VTE Risk/Contraindication: Risk Factor Score Per Nursin RFS Level Per Nursing on Admit: 4+=Very High Contraindications-Pharm: Other *list below* Other: SCD'S ON PATIENT AND HOME XARELTO RESTARTED MONIKA CHAIREZ MD Apr 19, 2019 09:06
[2019-04-19] MEDS: PATIENT MAY USE OWN MED,SINGLE MED OP SCH (10:01)
[2019-04-19] MEDS: LOTEPREDNOL ETABONATE OU SCH ×2 (10:01→20:47)
[2019-04-19] MEDS: FLUTICASONE NASAL SPRAY (FLONASE) 16 GM BTL NS SCH (10:01)
[2019-04-19] MEDS: UMECLIDINIUM BROMIDE (INCRUSE ELLIPTA) 7'S IH SCH (10:53)
--- NOTE | 2019-04-19 13:15 | Pulmonary Progress Note ---
Subjective Time Seen by a Provider: 13:13 Subjective/Events-last exam Pt is feeling better. Sepsis Event Evaluation Height, Weight, BMI Height: 5'4.50" Weight: 263lbs. 5.0oz. 119.000443jm; 46.29 BMI Method:Stated Exam Exam Vital Signs Date Time Temp Pulse Resp B/P (MAP) Pulse Ox O2 Delivery O2 Flow Rate FiO2 04/19/19 11:00 Nasal Cannula 2.00 04/19/19 10:54 96 Nasal Cannula 2.00 04/19/19 08:00 Nasal Cannula 1.50 04/19/19 07:49 36.6 84 18 128/60 (82) 92 Nasal Cannula 1.50 04/19/19 04:00 36.8 86 18 126/62 (83) Nasal Cannula 1.50 04/19/19 03:01 92 Nasal Cannula 2.00 04/18/19 23:43 36.6 83 18 124/57 (79) Nasal Cannula 1.50 04/18/19 21:34 98 Nasal Cannula 2.00 04/18/19 20:05 36.9 78 20 132/60 (84) 92 Nasal Cannula 1.50 04/18/19 19:50 Nasal Cannula 1.50 04/18/19 16:00 36.7 73 18 117/61 (79) 93 Nasal Cannula 1.50 04/18/19 14:37 97 Nasal Cannula 2.00 04/18/19 14:07 36.3 73 97 28 I & O 04/19/19 07:00 Intake Total 1660 ml Balance 1660 ml Height & Weight Height: 5'4.50" Weight: 263lbs. 5.0oz. 119.142875yd; 46.29 BMI Method:Stated General Appearance: No Apparent Distress, WD/WN HEENT: PERRL/EOMI, Other (DENTURES) Neck: Full Range of Motion, Normal Inspection, Non Tender, Supple Respiratory: Chest Non Tender, Crackles, Decreased Breath Sounds, Wheezing Cardiovascular: Regular Rate, Rhythm, No Murmur, Normal Peripheral Pulses, Other (EDEMA OF ANKLES) Capillary Refill: Less Than 3 Seconds Extremity: Normal Capillary Refill, Pedal Edema Neurologic/Psychiatric: Alert, Oriented x3, No Motor/Sensory Deficits, Normal Mood/Affect, pre wave assembler II-XII Norm as Tested Skin: Normal Color, Warm/Dry Lymphatic: No Adenopathy Results Lab Laboratory Tests 04/18/19 13:20 04/19/19 06:10 Assessment/Plan Assessment/Plan AsthmaAE -Duoneb Q 6 -Solumedrol 40 Q 6 Influenza A -Continue Tamiflu -Ok to d/c merrem from pulmonary standpoint. -Check PCT SKYLER -Use home CPAP machine BRITTON GARZA DO Apr 19, 2019 13:15
[2019-04-19 16:00] VITALS: BP 126/61
[2019-04-19] MEDS: ADVAIR HFA 115/21 MCG INHALER 8 GM IH SCH (18:46)
[2019-04-19 20:40] VITALS: BP 166/77
[2019-04-19] MEDS ORDERED: MONTELUKAST 10 MG (SINGULAIR) TAB PO SCH (21:00)
[2019-04-20] MEDS: methylPREDNISolone 40 MG/ML (Solu-MEDROL) VIAL IV SCH ×3 (00:25→09:57)
[2019-04-20] MEDS: diphenhydrAMINE 50 MG/ML INJ (BENADRYL) IVP SCH ×2 (00:26→06:08)
[2019-04-20 00:35] VITALS: BP 157/56
[2019-04-20] MEDS: MEROPENEM 500 MG in WATER (STERILE) FOR INJECTION 10 ML IV SCH ×2 (00:47→06:17)
[2019-04-20] MEDS: RT-ALBUTEROL/IPRATROPIUM 3 ML (DUONEB) VIAL INH SCH ×2 (02:19→07:00)
[2019-04-20] MEDS: RIVAROXABAN 20 MG TABLET (XARELTO) PO SCH (06:13)
[2019-04-20] MEDS: KCL 10 MEQ TAB (MICRO K) PO SCH (06:13)
[2019-04-20] MEDS: CATHETER FLUSH 10 ML SYR IV SCH (06:17)
[2019-04-20 06:26] LABS: MEAN PLATELET VOLUME 9.4 FL (7.4-10.4); RED CELL DISTRIBUTION WIDTH 13.9 % (10.0-14.5); WHITE BLOOD COUNT 6.4 10^3/uL (4.3-11.0)
[2019-04-20 06:43] LABS: CREATININE SERUM 0.97 MG/DL (0.60-1.30); POTASSIUM 4.1 MMOL/L (3.6-5.0)
[2019-04-20] MEDS: ADVAIR HFA 115/21 MCG INHALER 8 GM IH SCH (07:00)
[2019-04-20] MEDS: UMECLIDINIUM BROMIDE (INCRUSE ELLIPTA) 7'S IH SCH (07:01)
[2019-04-20 08:00] VITALS: BP 128/66
[2019-04-20] MEDS: VITAMIN D3 125 MCG (5,000 UNITS) CAPSULE PO SCH (08:07)
[2019-04-20] MEDS: PATIENT MAY USE OWN MED,SINGLE MED OP SCH (08:07)
[2019-04-20] MEDS: meTOprolol TARTRATE 50 MG (LOPRESSOR) TAB PO SCH (08:07)
[2019-04-20] MEDS: FLUTICASONE NASAL SPRAY (FLONASE) 16 GM BTL NS SCH (08:07)
[2019-04-20] MEDS: doxAzosin 2 MG (CARDURA) TAB PO SCH (08:07)
[2019-04-20] MEDS: LOTEPREDNOL ETABONATE OU SCH (08:07)
[2019-04-20] MEDS: LORATADINE (CLARITIN) 10 MG TAB PO SCH (08:08)
[2019-04-20] MEDS: OSELTAMIVIR 75 MG (TAMIFLU) CAPSULE PO SCH (08:08)
[2019-04-20] MEDS: PANTOPRAZOLE 20 MG TABLET (PROTONIX) PO SCH (08:08)
[2019-04-20] MEDS: ALPRAZolam 0.5 MG (XANAX) TAB PO SCH (08:08)
--- NOTE | 2019-04-20 08:51 | Progress Note ---
Subjective Subjective Time Seen by Provider: 09:07 see dc note All Other Systems Reviewed All Other Systems Reviewed: Yes Objective Exam Vital Signs Vital Signs - First Documented 04/18/19 04/18/19 04/18/19 12:04 14:07 14:37 Temp 36.3 Pulse 88 Resp 22 B/P (MAP) 175/82 (113) Pulse Ox 93 O2 Delivery Room Air O2 Flow Rate 2.00 FiO2 28 Capillary Refill : Less Than 3 SecondsLess Than 3 Seconds General Appearance: WD/WN, Moderate Distress (DUE TO BREATHING) Eyes: Bilateral Eye Normal Inspection, Bilateral Eye PERRL, Bilateral Eye EOMI HEENT: PERRL/EOMI, Other (DENTURES) Neck: Full Range of Motion, Normal Inspection, Non Tender, Supple Respiratory: Chest Non Tender, Crackles, Decreased Breath Sounds, Respiratory Distress (DUE TO DIFFICULTY BREATHING), Wheezing Cardiovascular: Regular Rate, Rhythm, No Murmur, Normal Peripheral Pulses, Other (EDEMA OF ANKLES) Gastrointestinal: Normal Bowel Sounds, Non Tender, Soft Rectal: Deferred Back: Normal Inspection Extremity: Normal Capillary Refill, Pedal Edema Neurologic/Psychiatric: Alert, Oriented x3, No Motor/Sensory Deficits, Normal Mood/Affect, 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 Norm as Tested Skin: Normal Color, Warm/Dry Lymphatic: No Adenopathy Results Lab Laboratory Tests 04/20/19 05:42: White Blood Count 6.4, Red Blood Count 4.14L, Hemoglobin 13.0, Hematocrit 39, Mean Corpuscular Volume 95, Mean Corpuscular Hemoglobin 31, Mean Corpuscular Hemoglobin Concent 33, Red Cell Distribution Width 13.9, Platelet Count 239, Mean Platelet Volume 9.4, Sodium Level 139, Potassium Level 4.1, Chloride Level 103, Carbon Dioxide Level 25, Anion Gap 11, Blood Urea Nitrogen 30H, Creatinine 0.97, Estimat Glomerular Filtration Rate 57, BUN/Creatinine Ratio 31, Glucose Level 89, Calcium Level 9.0 Microbiology 04/18/19 MRSA Screen - Final, Complete MRSA not isolated Assessment/Plan Assessment/Plan Admission Dx RESPIRATORY DISTRESS INFLUENZA A POSITIVE STATUS ASTHMA WITH ACUTE EXACERBATION HYPERTENSION ATRIAL FIBRILLATION EDEMA OBSTRUCTIVE SLEEP APNEA MORBID OBESITY Admission Dx RESPIRATORY DISTRESS INFLUENZA A POSITIVE STATUS ASTHMA WITH ACUTE EXACERBATION HYPERTENSION ATRIAL FIBRILLATION EDEMA OBSTRUCTIVE SLEEP APNEA MORBID OBESITY Clinical Quality Measures Admission Status Admission Dx RESPIRATORY DISTRESS INFLUENZA A POSITIVE STATUS ASTHMA WITH ACUTE EXACERBATION HYPERTENSION ATRIAL FIBRILLATION EDEMA OBSTRUCTIVE SLEEP APNEA MORBID OBESITY DVT/VTE Risk/Contraindication: Risk Factor Score Per Nursin RFS Level Per Nursing on Admit: 4+=Very High Contraindications-Pharm: Other *list below* Other: SCD'S ON PATIENT AND HOME XARELTO RESTARTED MONIKA CHAIREZ MD Apr 20, 2019 08:51
[2019-04-20] MEDS ORDERED: OSEL75CA15 PO (09:13)
[2019-04-20] MEDS ORDERED: PRD20T PO (09:13)
--- NOTE | 2019-04-20 09:15 | Discharge Inst-Simple/Standard ---
Discharge Inst-Standard Reconcile Patient Problems Problems Reviewed?: Yes Discharge Medications New, Converted or Re-Newed RX: Transmitted to Pharmacy Patient Instructions/Follow Up Plan of Care/Instructions/FU: follow up with thuan lou 1 wk, dr. niño 2 wks Activity as Tolerated: Yes Discharge Diet: Regular Diet Health Concerns: influenza a, moderate persistent asthma Return to The Hospital For: any concern for worsening illness, injury Medication List: Active Scripts Active Prednisone 20 Mg Tab 20 Mg PO DAILY Take 3 tabs(60mg)daily, decrease by 1/2 tab(10mg)daily. Oseltamivir Phosphate 75 Mg Capsule 75 Mg PO BID take tamiflu x 2 more days on discharge Reported Iprat-Albut 0.5-3(2.5) mg/3 ml (Ipratropium/Albuterol Sulfate) 3 Ml Ampul.neb 3 Ml IH Q6H PRN Montelukast Sodium 10 Mg Tablet 10 Mg PO HS Vitamin D3 (Cholecalciferol (Vitamin D3)) 125 Mcg Tablet 125 Mcg PO DAILY Flonase Allergy Relief (Fluticasone Propionate) 9.9 Ml [place].susp 2 [place] NS DAILY 2 SPRAYS PER NOSTRIL DAILY X 2 DAYS THEN 1 SPRAY DAILY Tessalon Perles (Benzonatate) 100 Mg Capsule 100 Mg PO TID PRN Vitamin D2 (Ergocalciferol (Vitamin D2)) 1,250 Mcg Capsule 1,250 Mcg PO WEDNESDAY Restasis (Cyclosporine) 1 Each Droperette 1 Drop OU BID Furosemide 40 Mg Tablet 40 Mg PO DAILY 30 Days Potassium Chloride 10 Meq Capsule.er 10 Meq PO Q12H 30 Days Lotemax (Loteprednol Etabonate) 5 Ml Drops 1 Drop OU BID 14 Days Xarelto Tablet (Rivaroxaban) 20 Mg Tablet 20 Mg PO DAILY Doxazosin Mesylate 2 Mg Tablet 2 Mg PO Q12H Carafate (Sucralfate) 1 Gm Tablet 1 Gm PO ACHS PRN Claritin (Loratadine) 10 Mg Tablet 10 Mg PO DAILY PRN Mucus ER (Guaifenesin) 600 Mg Tab.er.12h 600 Mg PO Q12H PRN Spiriva (Tiotropium [place]) 1 Inh Aerp 1 Cap IH DAILY Alprazolam 0.25 Mg Tablet 0.25 Mg PO Q4 -6H PRN Metoprolol Tartrate 50 Mg Tablet 50 Mg PO BID Breo Ellipta 200-25 Mcg INH (Fluticasone/Vilanterol) 1 Each Blst.w.dev 1 Puff INH DAILY Zafirlukast 20 Mg Tablet 20 Mg PO BID Lab results: Laboratory Tests Test 04/20/19 05:42 Range/Units White Blood Count 6.4 4.3-11.0 10^3/uL Red Blood Count 4.14 L 4.35-5.85 10^6/uL Hemoglobin 13.0 11.5-16.0 G/DL Hematocrit 39 35-52 % Mean Corpuscular Volume 95 80-99 FL Mean Corpuscular Hemoglobin 31 25-34 PG Mean Corpuscular Hemoglobin Concent 33 32-36 G/DL Red Cell Distribution Width 13.9 10.0-14.5 % Platelet Count 239 130-400 10^3/uL Mean Platelet Volume 9.4 7.4-10.4 FL Sodium Level 139 135-145 MMOL/L Potassium Level 4.1 3.6-5.0 MMOL/L Chloride Level 103 98-107 MMOL/L Carbon Dioxide Level 25 21-32 MMOL/L Anion Gap 11 5-14 MMOL/L Blood Urea Nitrogen 30 H 7-18 MG/DL Creatinine 0.97 0.60-1.30 MG/DL Estimat Glomerular Filtration Rate 57 BUN/Creatinine Ratio 31 Glucose Level 89 70-105 MG/DL Calcium Level 9.0 8.5-10.1 MG/DL My orders: Orders - MONIKA CHAIREZ MD Fluticasone/Salmeterol 115/21 (Advair Hf (04/19/19 20:00) Cbc No Diff (04/20/19 06:00) Basic Metabolic Panel (04/20/19 06:00) Attending Discharge Inpt/Inobs (04/20/19 09:08) MONIKA CHAIREZ MD Apr 20, 2019 09:15
--- NOTE | 2019-04-20 09:16 | Discharge Summary ---
Diagnosis/Chief Complaint Date of Admission Apr 18, 2019 at 11:48 Date of Discharge Discharge Date: Apr 20, 2019 Discharge Time: 1030 Reason Hospital Visit PT IS A 68 Y/O FEMALE WHO IS KNOWN TO ME FROM CLINIC. SHE WAS ADMITTED TO THE HOSPITAL FOR RESPIRATORY DISTRESS AFTER TWO DAYS OF ACUTE ILLNESS. ON WEDNESDAY SHE STARTED TO HAVE A COUGH, SHORTNESS OF BREATH, BEGAN HER BREATHING TREATMENTS AND WAS SEEN IN THE OFFICE ON WEDNESDAY. AT HER VISIT ON WEDNESDAY, SHE WAS GIVEN A KENALOG SHOT IN THE OFFICE. SHE THEN PRESENTED TO THE OFFICE TODAY WITH DYSPNEA, WHEEZING, AND IN DISTRESS DUE TO DIFFICULTY BREATHING. Discharge Summary Discharge Physical Examination Allergies: Coded Allergies: apixaban (Verified Allergy, Severe, HIVES, 05/12/18) olmesartan (Verified Allergy, Severe, HIVES, 05/12/18) doxycycline (Verified Allergy, Intermediate, HIVES, 05/12/18) SWELLING, HIVES Penicillins (Verified Allergy, Unknown, PT CAN TAKE KEFLEX, 05/12/18) Sulfa (Sulfonamide Antibiotics) (Verified Allergy, Unknown, 05/12/18) Tetanus Vaccines and Toxoid (Verified Allergy, Unknown, 05/12/18) codeine (Verified Allergy, Unknown, 05/12/18) levofloxacin (Verified Allergy, Unknown, HIVES, 05/12/18) CAN TAKE LONG SHE ALSO TAKES BENADRYL morphine (Verified Allergy, Unknown, 05/12/18) Vitals & I&Os Vital Signs Date Time Temp Pulse Resp B/P (MAP) Pulse Ox O2 Delivery O2 Flow Rate FiO2 04/20/19 08:10 Nasal Cannula 1.00 04/20/19 08:00 36.2 84 18 128/66 (86) 92 04/18/19 14:07 28 Hospital Course Pending Labs Laboratory Tests 04/20/19 05:42: White Blood Count 6.4, Red Blood Count 4.14, Hemoglobin 13.0, Hematocrit 39, Mean Corpuscular Volume 95, Mean Corpuscular Hemoglobin 31, Mean Corpuscular Hemoglobin Concent 33, Red Cell Distribution Width 13.9, Platelet Count 239, Mean Platelet Volume 9.4, Sodium Level 139, Potassium Level 4.1, Chloride Level 103, Carbon Dioxide Level 25, Anion Gap 11, Blood Urea Nitrogen 30, Creatinine 0.97, Estimat Glomerular Filtration Rate 57, BUN/Creatinine Ratio 31, Glucose Level 89, Calcium Level 9.0 Discharge Instructions to patient/family Please see electronic discharge instructions given to patient. Discharge Medications Reviewed and agree with Discharge Medication list on patient's Discharge Instruction sheet Clinical Quality Measures DVT/VTE Risk/Contraindication: Risk Factor Score Per Nursin RFS Level Per Nursing on Admit: 4+=Very High Contraindications-Pharm: Other *list below* Other: SCD'S ON PATIENT AND HOME XARELTO RESTARTED MONIKA CHAIREZ MD Apr 20, 2019 09:16
[2019-04-20] MEDS ORDERED: RELABEL FOR HOME USE MC SCH (12:00)
[2019-04-20] MEDS ORDERED: FLUTICASONE NASAL SPRAY (FLONASE) 16 GM BTL NS SCH (12:00)
[2019-04-20 12:24] VITALS: BP 170/74
[2019-04-20 12:40] VITALS: BP 128/66
--- NOTE | 2019-04-20 12:57 | Pulmonary Progress Note ---
Subjective Time Seen by a Provider: 12:56 Subjective/Events-last exam No complications noted. Sepsis Event Evaluation Height, Weight, BMI Height: 5'4.50" Weight: 263lbs. 5.0oz. 119.475313zv; 46.29 BMI Method:Stated Exam Exam Vital Signs Date Time Temp Pulse Resp B/P (MAP) Pulse Ox O2 Delivery O2 Flow Rate FiO2 04/20/19 12:40 36.2 84 18 128/66 92 Nasal Cannula 1.00 04/20/19 12:24 36.4 70 20 170/74 (106) 93 04/20/19 08:10 Nasal Cannula 1.00 04/20/19 08:00 36.2 84 18 128/66 (86) 92 Nasal Cannula 1.00 04/20/19 07:09 Nasal Cannula 1.00 04/20/19 07:07 Nasal Cannula 1.00 04/20/19 07:01 94 Nasal Cannula 1.00 04/20/19 02:20 96 Nasal Cannula 1.00 04/20/19 00:35 36.8 83 18 157/56 (89) 91 Nasal Cannula 1.00 04/19/19 22:29 93 Room Air 04/19/19 20:40 37.2 85 18 166/77 (106) 95 Nasal Cannula 1.00 04/19/19 20:00 95 Nasal Cannula 1.00 04/19/19 18:54 97 Nasal Cannula 1.00 04/19/19 16:00 36.4 81 20 126/61 (82) 94 Nasal Cannula 1.50 04/19/19 15:29 95 Nasal Cannula 1.00 I & O 04/20/19 07:00 Intake Total 1946 ml Balance 1946 ml Height & Weight Height: 5'4.50" Weight: 263lbs. 5.0oz. 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 Ill see pt in f/u in 2 wks. BRITTON GARZA DO Apr 20, 2019 12:57
== END 2019-04-20 12:40 | disposition home or self-care (01) | DRG 194 ==
LOC: 4TH 11:48
PROVIDERS: ADMIT Family Medicine; ATTEND Family Medicine
DX: J10.1 Influenza due to other identified influenza virus with other respiratory manifestations (principal); J45.41 Moderate persistent asthma with (acute) exacerbation; R06.03 Acute respiratory distress; E66.01 Morbid (severe) obesity due to excess calories; Z68.42 Body mass index [BMI] 45.0-49.9, adult; J43.9 Emphysema, unspecified; G47.33 Obstructive sleep apnea (adult) (pediatric); I48.91 Unspecified atrial fibrillation; I10 Essential (primary) hypertension; R60.9 Edema, unspecified; M19.91 Primary osteoarthritis, unspecified site; F41.9 Anxiety disorder, unspecified; Z95.1 Presence of aortocoronary bypass graft; Z87.19 Personal history of other diseases of the digestive system
CPT/HCPCS: 36415; 71046; 80048; 80053; 83735; 84100; 84145; 85025; 85027; 87081; 87804; 94640; 94760

== ENCOUNTER → 2019-10-12 | Outpatient (CLI) | payer MEDICARE, OTHER ==
[~2019-10-12] MED LIST changes: +CALC-250 PO; +CATHETER FLUSH 10 ML SYR IV PRN; +CYCL1DRO OU; +FLUT9.9S NS; +HOLD METFORMIN - RECEIVED CONTRAST 20 ML VIAL IV SCH; +IPRA3AMP31 IH; +NF-LOTEOS OU
[2019-10-12] MEDS: IOHEXOL 350 MG/ML 100 ML (OMNIPAQUE 350) VIAL IV ONE (11:38)
[2019-10-12] MEDS: NS 100 ML (IVPB) BAG IV ONE (11:38)
--- NOTE | 2019-10-12 11:50 | Diagnostic Imaging Report ---
PROCEDURE: CT angiography of the chest with contrast. TECHNIQUE: Multiple contiguous axial images were obtained through the chest after uneventful bolus administration of intravenous contrast. 3D reconstructed CTA MIP acquisitions were also performed. Auto Exposure Controls were utilized during the CT exam to meet ALARA standards for radiation dose reduction. INDICATION: Cough. Comparison is made to previous study dated 03/31/2019. FINDINGS: There is good opacification of pulmonary arteries without intraluminal filling defect. Thoracic aorta is also unremarkable. There are coronary artery calcifications. Occasional calcified granulomas are also seen in the right hilum and right lung. There is mild groundglass density throughout the lungs possibly due to mild background edema or pneumonitis. No consolidations identified. There is no significant pleural or pericardial fluid. Nodularity of thyroid gland has a similar appearance as previous study. There is LAP-BAND device thickening over the gastroesophageal junction. IMPRESSION: No CTA evidence of pulmonary embolism. There is mild groundglass density in the lungs possibly due to mild diffuse edema or pneumonitis. No consolidation or other acute abnormality is detected. Dictated by: Dictated on workstation # [id number]
== END ==
LOC: RAD 11:10
PROVIDERS: ATTEND Internal Medicine Critical Care Medicine
DX: J98.4 Other disorders of lung (principal); R05 Cough; Z98.84 Bariatric surgery status
CPT/HCPCS: 71275

== ENCOUNTER 2019-10-17 05:34 | Outpatient (RCR) | payer MEDICARE, OTHER ==
[~2019-10-17] VITALS: Ht 162 cm; Wt 126.8 kg
[~2019-10-17 05:34] MED LIST changes: -CATHETER FLUSH 10 ML SYR IV PRN; +CETI10TA21 PO; +FLUT1DIS26 IH; -HOLD METFORMIN - RECEIVED CONTRAST 20 ML VIAL IV SCH; +PANT40TA3 PO; +RT-ALBUINH IH; +SODI30SP2 NS
== END 2019-10-17 12:46 | disposition home or self-care (01) ==
LOC: PREOP 05:34
PROVIDERS: ATTEND Internal Medicine Critical Care Medicine
DX: Z01.818 Encounter for other preprocedural examination (principal); Z01.812 Encounter for preprocedural laboratory examination; J45.909 Unspecified asthma, uncomplicated; R94.2 Abnormal results of pulmonary function studies; Z20.828 Contact with and (suspected) exposure to other viral communicable diseases
CPT/HCPCS: 87635

== ENCOUNTER 2019-10-19 06:31 | Day surgery (SDC) | payer MEDICARE, OTHER ==
[2019-10-19] VITALS (17 sets, daily range): BP systolic 109–180; BP diastolic 52–109
[~2019-10-19] VITALS: Ht 162 cm; Wt 126.8 kg
[2019-10-19] MEDS ORDERED: LIDOCAINE PF 2% 5 ML (XYLOCAINE) VIAL INJ ONE (06:32)
[2019-10-19] MEDS ORDERED: LIDOCAINE JELLY 2% 6 ML SYRINGE TOP ONE (06:32)
[2019-10-19] MEDS ORDERED: LIDOCAINE PF 1% 2 ML VIAL IJ ONE (06:32)
[2019-10-19] MEDS ORDERED: LACTATED RINGERS 1,000 ML IV STA (07:05)
[2019-10-19] MEDS ORDERED: LACTATED RINGERS 1,000 ML IV ONE (07:06)
[2019-10-19] MEDS ORDERED: fentaNYL INJECTION 100 MCG/2 ML AMP IVP ONE ×2 (07:15)
[2019-10-19] MEDS ORDERED: MIDAZOLAM 5 MG/5 ML (VERSED) VIAL IV PRN (07:15)
[2019-10-19] MEDS ORDERED: LIDOCAINE JELLY 2% 6 ML SYRINGE MM PRN (07:15)
[2019-10-19] MEDS ORDERED: HURRICAINE EXT TUBE (BENZOCAINE) XX PRN (07:15)
--- NOTE | 2019-10-19 07:39 | Pulmonary Procedures ---
Pulmonary Procedures Date of Procedure Date of Service: Oct 19, 2019 Bronch Bronchoscopy with bronchoalveolar lavage (BAL), transbronchial washes and, brushes. Preop DX Asthma and Bilateral infiltrates Postop DX: same Complications: none After informed consent obtained and formal time out pt was sedated using Fe ntanyl and Versed. Bronchoscope was advanced through the nare and vocal cords. 1% lidocaine was used to anesthetize vocal cords, epiglottis, ofelia, and left/right main stem bronchus. An anatomical tour was undertaken down to the segmental bronchi bilaterally. No endobronchial lesions noted. From the RML a bronchoalveolar lavage (BAL), transbronchial washes and, brushes were obtained. Pt tolerated procedure well. No complications noted. Stat CXR is pending. BRITTON GARZA DO Oct 19, 2019 07:39
[2019-10-19] MEDS ORDERED: fentaNYL INJECTION 100 MCG/2 ML AMP ONE ×2 (07:40→08:54)
[2019-10-19] MEDS ORDERED: MIDAZOLAM 5 MG/5 ML (VERSED) VIAL ONE ×3 (07:40→08:53)
--- NOTE | 2019-10-19 07:42 | Progress Note-Pre Operative ---
Pre-Operative Progress Note H&P Reviewed The H&P was reviewed, patient examined and no changes noted. Time Seen by Provider: 07:42 Date H&P Reviewed: Oct 19, 2019 Time H&P Reviewed: 07:42 Pre-Operative Diagnosis: cough and infiltrates BRITTON GARZA DO Oct 19, 2019 07:42
--- NOTE | 2019-10-19 07:43 | Pre-Op Note & Conscious Sedat ---
Pre-Operative Progress Note H&P Reviewed The H&P was reviewed, patient examined and no changes noted. Date H&P Reviewed: Oct 19, 2019 Time H&P Reviewed: 07:42 Conscious Sedation Pre-Proced Time 07:42 ASA Score 3 For ASA 3 and 4: Consider anesthesia and medical clearance. Also, for patients with a history of failed moderate sedation consider anesthesia. Airway Lungs Heart ASA score ASA 1: a normal healthy patient ASA 2: a patient with a mild systemic disease (mid diabetes, controlled hypertension, obesity ASA 3: a patient with a severe systemic disease that limits activity (angina, COPD, prior Myocardial infarction) ASA 4: a patient with an incapacitating disease that is a constant threat to life (CHF, renal failure) ASA 5: a moribund patient not expected to survive 24 hrs. (ruptured aneurysm) ASA 6: a declared brain- patient whose organs are being harvested. For emergent operations, add the letter E after the classification Mallampati Classification Grade 4 Sedation Plan Analgesia, Amnesia, Plan communicated to team members, Discussed options with patient/fam, Discussed risks with patient/fam The patient is an appropriate candidate to undergo the planned procedure, sedation, and anesthesia. The patient immediately re-assessed prior to indication. BRITTON GARZA DO Oct 19, 2019 07:43
[2019-10-19] MEDS: MIDAZOLAM 5 MG/5 ML (VERSED) VIAL IV PRN ×5 (07:45→09:08)
[2019-10-19] MEDS ORDERED: LIDOCAINE JELLY 2% 6 ML SYRINGE ONE (08:53)
[2019-10-19] MEDS ORDERED: HURRICAINE EXT TUBE (BENZOCAINE) ONE (08:54)
[2019-10-19] MEDS ORDERED: ACETAMINOPHEN 325 MG TABLET PO PRN (09:00)
[2019-10-19] MEDS ORDERED: HYDROcodone/APAP 5 MG/325 MG (LORTAB) TAB PO PRN (09:00)
[2019-10-19] MEDS ORDERED: ONDANSETRON 4 MG/2 ML (SDV) Z0FRAN IVP PRN (09:00)
--- NOTE | 2019-10-19 09:00 | Progress Note-Pre Operative ---
Pre-Operative Progress Note H&P Reviewed The H&P was reviewed, patient examined and no changes noted. Date Seen by Provider: Oct 19, 2019 Time Seen by Provider: 08:00 Date H&P Reviewed: Oct 19, 2019 Time H&P Reviewed: 08:00 Pre-Operative Diagnosis: chronic cough, GERD RUDOLPH PARADA MD Oct 19, 2019 09:00
--- NOTE | 2019-10-19 09:00 | Conscious Sedation/ASA ---
Conscious Sedation Pre-Proced Time 08:00 ASA Score 3 For ASA 3 and 4: Consider anesthesia and medical clearance. Also, for patients with a history of failed moderate sedation consider anesthesia. Airway Lungs Heart ASA score ASA 1: a normal healthy patient ASA 2: a patient with a mild systemic disease (mid diabetes, controlled hypertension, obesity ASA 3: a patient with a severe systemic disease that limits activity (angina, COPD, prior Myocardial infarction) ASA 4: a patient with an incapacitating disease that is a constant threat to life (CHF, renal failure) ASA 5: a moribund patient not expected to survive 24 hrs. (ruptured aneurysm) ASA 6: a declared brain- patient whose organs are being harvested. For emergent operations, add the letter E after the classification Mallampati Classification Grade 2 Sedation Plan Analgesia, Amnesia, Plan communicated to team members, Discussed options with patient/fam, Discussed risks with patient/fam The patient is an appropriate candidate to undergo the planned procedure, sedation, and anesthesia. The patient immediately re-assessed prior to indication. RUDOLPH PARADA MD Oct 19, 2019 08:59
--- NOTE | 2019-10-19 09:02 | Discharge Inst-Surgical ---
D/C Lap Instructions-TAL Follow Up Activity as tolerated High Fiber Diet 25g or more per day Avoid Alcohol, Caffeine, Spicy [place] and Acid foods. Drink 64 fluid oz or more of fluids per day. Symptoms to Report: Fever over 101 degree F, Nausea/Vomiting If any problems/questions: Contact your physician or go to Emergency Room RUDOLPH PARADA MD Oct 19, 2019 09:02
--- NOTE | 2019-10-19 09:06 | Diagnostic Imaging Report ---
INDICATION: Post bronchoscopy. Frontal chest obtained at 0843 a.m. and compared to 04/18/2019. There is cardiomegaly and poststernotomy change. There is no focal infiltrate or pneumothorax or pleural fluid. There is a stable calcified granuloma in the right midlung. IMPRESSION: Cardiomegaly. No pneumothorax or pleural fluid following bronchoscopy. Dictated by: Dictated on workstation # [id number]
--- NOTE | 2019-10-19 09:15 | Diagnostic Imaging Report ---
Fluoroscopy at 8:19 AM INDICATION: Respiratory distress Fluoroscopic assistance was provided for Dr. Shashank Godfrey during his bronchoscopy procedure. 4.7 seconds of fluoroscopy time was utilized. A single spot film of the thorax was obtained. There is a bronchoscopic device in place. Sternotomy wires and surgical clips are again seen as well. IMPRESSION: Fluoroscopic assistance was provided for Dr. Godfrey. Dictated by: Dictated on workstation # [id number]
[2019-10-19] MEDS ORDERED: RT-ALBUTEROL/IPRATROPIUM 3 ML (DUONEB) VIAL INH SCH (10:00)
--- NOTE | 2019-10-19 10:48 | Progress Note-Post Operative ---
Post-Operative Progess Note Surgeon (s)/Hearing Care Professional (s) Surgeon RUDOLPH PARADA MD Hearing Care Professional: none Pre-Operative Diagnosis chronic cough, GERD Post-Operative Diagnosis reflux esophagitis(stage 2), inferior band slippage, moderate gastritis, no distal obstructions. Procedure & Operative Findings Date of Procedure 10/19/19 Procedure Performed/Findings EGD with bx. Anesthesia Type cs Estimated Blood Loss Estimated blood loss (mL): minimal Specimens/Packing Specimens Removed ge jxn, antrum RUDOLPH PARADA MD Oct 19, 2019 10:48
--- NOTE | 2019-10-19 11:00 | OPERATIVE REPORT ---
DATE OF SERVICE: 10/19/2019 ATTENDING PRIMARY CARE PHYSICIAN: Dr. Lacy Do. PREOPERATIVE DIAGNOSES: Chronic cough and gastroesophageal reflux disease. POSTOPERATIVE DIAGNOSES: Reflux esophagitis stage II, slightly enlarged gastric pouch, which may be consistent with a band slippage. No band erosion. Moderate severity gastritis. No distal obstructions. PROCEDURE PERFORMED: EGD with biopsy. SURGEON: Rudolph Parada MD. ANESTHESIA: Conscious sedation. ESTIMATED BLOOD LOSS: Minimal. FINDINGS: Same as postoperative diagnosis. DISPOSITION: The patient tolerated the procedure well. INDICATIONS FOR PROCEDURE: The patient is a 68-year-old female known to us. We had seen her initially for morbid obesity and medical comorbidities including hypertension, hypercholesterolemia, gastroesophageal reflux disease and sleep apnea. She underwent a laparoscopic adjustable gastric band placement with an AP standard band on 01/14/2012. She has had issues with a chronic cough reflux as well as pneumonia. A CT scan was performed several months ago, which was consistent with a band slippage. She has gained a vast majority of the weight that she had lost in the past. DESCRIPTION OF PROCEDURE: The patient was brought to the endoscopy suite and laid in the left lateral decubitus position. After adequate IV pain and sedative medications and conscious sedation anesthesia, the mouthpiece was applied. The endoscope was then placed in the mouth, visualizing the pharynx and hypopharyngeal region. Vocal cords, epiglottis and vallecula were identified and appeared to be normal. Endoscope was then gently intubated and the esophageal opening and esophagus insufflated. The endoscope was then advanced to the first, second and third portion of esophagus. At the level of GE junction, reflux esophagitis stage II was identified. Biopsies were taken of the GE junction with forceps with visualization of good hemostasis. The endoscope was then advanced into the gastric pouch, which appeared slightly larger than normal, which may be consistent with an inferior band slippage. The endoscope was passed through the band, which was widely patent. The endoscope was then retroflexed visualizing the band with no band erosion identified. There was a moderate severity gastritis throughout the stomach. No formal ulcerations, polyps or any neoplasms. A biopsy was taken from the antrum to rule out H. pylori with visualization of good hemostasis. The endoscope was then advanced through the pylorus and the first and second portion of the duodenum, which appeared normal with no distal obstructions. Endoscope was then slowly withdrawn while taking a second look and suctioning of residual air with no additional findings. The patient tolerated the procedure well. We will recommend the necessary lifestyle and diet accommodation including small and more frequent meals, avoidance of eating at night as well as head elevation while lying supine. She also needs to avoid caffeinated beverages, spicy, greasy and acidic foods. Any modality for exercise, diet and exercise for weight loss and maintenance would also help with her symptoms. She does not have any band erosion; however, likely does have a band slippage and she would like to have the band removed and that would be an option as well. For now, we will start her on Protonix 40 mg daily. Job ID: [id number] DocumentID: [id number] Dictated Date: 10/19/2019 09:33:59 Cancer Program Consultant Date: 10/19/2019 10:59:55 Dictated By: RUDOLPH PARADA MD
[2019-10-19 12:01] LABS: BODY FLUID APPEARENCE SLT CLDY
[2019-10-19 12:02] LABS: BF OTHER CELLS 63 %; BODY FLUID COLOR COLORLESS; LYMPHOCYTES,BODY FLUID 19 %
[2019-10-19 12:03] LABS: BODY FLUID SOURCE OTHER
== END 2019-10-19 10:15 | disposition home or self-care (01) ==
LOC: ENDO 06:31
PROVIDERS: ATTEND Internal Medicine Critical Care Medicine
DX: K21.0 Gastro-esophageal reflux disease with esophagitis (principal); K29.50 Unspecified chronic gastritis without bleeding; I10 Essential (primary) hypertension; E78.00 Pure hypercholesterolemia, unspecified; G47.30 Sleep apnea, unspecified; I48.91 Unspecified atrial fibrillation; E03.9 Hypothyroidism, unspecified; I25.10 Atherosclerotic heart disease of native coronary artery without angina pectoris; J45.909 Unspecified asthma, uncomplicated; E66.9 Obesity, unspecified; Z68.42 Body mass index [BMI] 45.0-49.9, adult; Z79.899 Other long term (current) drug therapy; Z88.0 Allergy status to penicillin; Z88.2 Allergy status to sulfonamides; Z88.7 Allergy status to serum and vaccine; Z88.5 Allergy status to narcotic agent; Z88.8 Allergy status to other drugs, medicaments and biological substances; Z90.710 Acquired absence of both cervix and uterus; Z90.49 Acquired absence of other specified parts of digestive tract
CPT/HCPCS: 71045; 76000; 87015; 87070; 87077; 87101; 87116; 87205; 87206; 88112; 88305; 88312; 89051; 94640

== ENCOUNTER → 2019-11-08 | Outpatient (CLI) | payer MEDICARE, OTHER ==
[~2019-11-08] MED LIST changes: -CETI10TA21 PO; +CETI10TA49 PO; -PANT40TA3 PO; +PANT40TA52 PO
--- NOTE | 2019-11-08 09:51 | Diagnostic Imaging Report ---
INDICATION: Fall. Time of exam: 9:27 AM Frontal and lateral views of the left tibia and fibula were obtained. Alignment at the knee and ankle appears normal. The tibia and fibula appear to be intact. No fractures are seen. There is some soft tissue swelling about the ankle. IMPRESSION: Ankle soft tissue swelling. No acute bony abnormality is detected. Dictated by: Dictated on workstation # [id number]
--- NOTE | 2019-11-08 09:54 | Diagnostic Imaging Report ---
INDICATION: Fall and facial injury. Time of exam: 9:18 AM Multiple views of the facial bones were obtained. The maxillary sinuses are clear. No intraorbital gas is identified. No definite facial bone fracture is seen. IMPRESSION: No acute abnormality is detected. Dictated by: Dictated on workstation # [id number]
--- NOTE | 2019-11-08 09:54 | Diagnostic Imaging Report ---
INDICATION: Fall with facial and nasal bone injury. Time of exam: 9:19 AM Frontal and lateral views of the nasal bones were obtained. No definite displaced nasal bone fracture is detected. IMPRESSION: No definite nasal bone fracture is identified. Dictated by: Dictated on workstation # [id number]
== END ==
LOC: RAD 08:58
PROVIDERS: ATTEND Nurse Practitioner Family
DX: S09.93XA Unspecified injury of face, initial encounter (principal); S09.92XA Unspecified injury of nose, initial encounter; M79.89 Other specified soft tissue disorders; W19.XXXA Unspecified fall, initial encounter
CPT/HCPCS: 70150; 70160; 73590

== ENCOUNTER → 2019-11-28 | Outpatient (CLI) | payer MEDICARE, OTHER ==
[~2019-11-28] MED LIST changes: -ALPR0.254 PO
[2019-11-28 12:46] LABS: BASOPHILS # (AUTO) 0.1 10^3/uL (0.0-0.1); BASOPHILS % (AUTO) 1 % (0-10); EOSINOPHILS # (AUTO) 0.1 10^3/uL (0.0-0.3); EOSINOPHILS % (AUTO) 0 % (0-10); HEMATOCRIT 41 % (35-52); HEMOGLOBIN 13.3 g/dL (11.5-16.0); LYMPHOCYTES % (AUTO) 22 % (12-44); MEAN CORPUSCULAR HEMOGLOBIN 32 pg (25-34); MEAN CORPUSCULAR HGB CONC 33 g/dL (32-36); MEAN CORPUSCULAR VOLUME 97 fL (80-99); MEAN PLATELET VOLUME 11.6 fL (9.0-12.2); MONOCYTES % (AUTO) 7 % (0-12); NEUTROPHILS # (AUTO) 9.2 10^3/uL (1.8-7.8); NEUTROPHILS % (AUTO) 67 % (42-75); PLATELET COUNT 201 10^3/uL (130-400); WHITE BLOOD COUNT 13.7 10^3/uL (4.3-11.0)
[2019-11-28 13:04] LABS: ALBUMIN 3.4 GM/DL (3.2-4.5); BILIRUBIN,TOTAL 0.5 MG/DL (0.1-1.0); CALCIUM 8.8 MG/DL (8.5-10.1); CREATININE SERUM 1.01 MG/DL (0.60-1.30); POTASSIUM 3.2 MMOL/L (3.6-5.0); TOTAL PROTEIN 6.2 GM/DL (6.4-8.2)
--- NOTE | 2019-11-28 13:13 | Diagnostic Imaging Report ---
INDICATION: Dyspnea upon exertion, cough. COMPARISON: 04/18/2019 and 10/27/2015. TECHNIQUE: Two radiographs of the chest dated 11/28/2019. FINDINGS: Postsurgical changes of a median sternotomy. Lap band is noted overlying the upper abdomen. The cardiac silhouette is stable and at the upper limits of normal in size. No significant pulmonary vascular congestion. Calcified granuloma within the right midlung. The lungs are clear of focal pulmonary opacity. No pleural effusion. No pneumothorax. No acute osseous abnormality. IMPRESSION: Chronic and postsurgical changes without acute cardiopulmonary abnormality. Dictated by: Dictated on workstation # [id number]
== END ==
LOC: RAD 12:15
PROVIDERS: ATTEND Internal Medicine Critical Care Medicine
DX: J45.991 Cough variant asthma (principal)
CPT/HCPCS: 71046; 80053; 85025; U0002; 36415; 87635

== ENCOUNTER → 2020-05-01 | Outpatient (CLI) | payer MEDICARE, OTHER ==
[~2020-05-01] MED LIST changes: -MONT10TA26 PO; +MONT10TA32 PO
--- NOTE | 2020-05-01 16:06 | Diagnostic Imaging Report ---
INDICATION: Routine screening. COMPARISON: 03/31/2019 and 12/12/2015. TECHNIQUE: 2D and 3D bilateral screening mammography was performed with CAD. FINDINGS: Scattered fibroglandular densities are identified bilaterally. There are benign calcifications in both breasts. No mass or malignant appearing microcalcifications are seen. The axillae are unremarkable. IMPRESSION: No mammographic features suspicious for malignancy are identified. ACR BI-RADS Category 2: Benign findings. Result letter will be mailed to the patient. Note: At least 10% of breast cancer is not imaged by mammography. Dictated by: Dictated on workstation # [id number]
== END ==
LOC: RAD 14:26
PROVIDERS: ATTEND Nurse Practitioner Family
DX: Z12.31 Encounter for screening mammogram for malignant neoplasm of breast (principal)
CPT/HCPCS: 77063; 77067

== ENCOUNTER → 2020-05-13 | Outpatient (CLI) | payer MEDICARE ==
--- NOTE | 2020-05-13 12:56 | Diagnostic Imaging Report ---
INDICATION: Pain. COMPARISON: 12/07/2014 TECHNIQUE: Two radiographs of the right hip dated 05/13/2020. FINDINGS: No acute fracture or dislocation. No destructive osseous process. Mild degenerative changes of the right sacroiliac joint, though the right sacroiliac joint appears intact. The pubic symphysis is intact. Phleboliths within the right pelvis. Mild degenerative changes of the right hip joint with mild joint space narrowing and minimal osteophyte formation. The right femoral head maintains its normal shape and contour. IMPRESSION: No acute osseous abnormality with mild degenerative changes, including within the right sacroiliac joint and right hip. Dictated by: Dictated on workstation # [id number]
--- NOTE | 2020-05-13 13:27 | Diagnostic Imaging Report ---
EXAMINATION: Lumbar spine at 12:10 PM. INDICATION: Back pain. TECHNIQUE/COMPARISON: Three views were obtained. There are no prior studies available for comparison. FINDINGS: The lateral view shows the vertebral body heights and alignment to be generally within normal limits. There is degenerative disc and bony disease at L5-S1 and to a much lesser degree at L1-L2. The other intervertebral spaces are fairly well-maintained. There is no fracture or acute bony abnormality appreciated. There is no sign of a paraspinal mass. There is mild symmetrical sclerosis of the sacroiliac joints. IMPRESSION: 1. There is no evidence for an acute bony abnormality. 2. There is degenerative disc and bony disease at L5-S1 and to a much lesser degree at L1-L2. 3. If there is clinical concern regarding spinal stenosis or nerve root encroachment, then MRI would be recommended for additional study. Dictated by: Dictated on workstation # [id number]
== END ==
LOC: RAD 11:56
PROVIDERS: ATTEND Nurse Practitioner Family
DX: M51.36 Other intervertebral disc degeneration, lumbar region (principal); M51.37 Other intervertebral disc degeneration, lumbosacral region; M16.11 Unilateral primary osteoarthritis, right hip
CPT/HCPCS: 72100; 73502

== ENCOUNTER → 2020-05-21 | Outpatient (CLI) | payer MEDICARE, OTHER ==
--- NOTE | 2020-05-21 15:43 | Diagnostic Imaging Report ---
PROCEDURE: MRI lumbar spine. TECHNIQUE: Multiplanar, multisequence MRI of the lumbar spine was performed without contrast. INDICATION: Low back pain and right hip pain. COMPARISON: Radiographs from 05/13/2020. FINDINGS: The last well-formed disc space will be labeled L5-S1 for the purposes of this examination. Alignment appears normal with no spondylolisthesis. There is moderate disc height loss at L5-S1 and mild disc height loss in the lower thoracic spine. Vertebral body heights are preserved. No acute fracture is seen. The conus terminates at L2-L3. The soft tissues about the lumbar spine demonstrate no acute abnormality. T12-L1: Diffuse disc bulge with right paracentral disc extrusion, causing flattening of the anterior cord. No cord signal changes are seen. Moderate spinal canal stenosis. No foraminal stenosis. L1-L2: Mild disc bulge and facet arthropathy. No spinal canal or foraminal stenosis. L2-L3: Mild disc bulge and facet arthropathy with ligamentous infolding. No spinal canal stenosis. No foraminal stenosis. L3-L4: Diffuse disc bulge with facet arthropathy and ligamentous infolding. No spinal canal stenosis. No foraminal stenosis. L4-L5: Diffuse disc bulge with facet arthropathy and ligamentous infolding. Mild spinal canal narrowing. No foraminal stenosis. L5-S1: Diffuse disc bulge with facet arthropathy and ligamentous infolding, causing moderate spinal canal stenosis and effacement of the lateral recesses. Severe bilateral foraminal stenosis, right worse than left. IMPRESSION: 1. Degenerative changes in the lumbar spine, most severe at L5-S1, causing moderate spinal canal stenosis and marked bilateral foraminal stenosis, right worse than left. 2. No acute osseous abnormalities seen in the lumbar spine. Dictated by: Dictated on workstation # [id number]
== END ==
LOC: RAD 14:00
PROVIDERS: ATTEND Family Medicine
DX: M47.816 Spondylosis without myelopathy or radiculopathy, lumbar region (principal); M47.817 Spondylosis without myelopathy or radiculopathy, lumbosacral region; M48.061 Spinal stenosis, lumbar region without neurogenic claudication; M48.07 Spinal stenosis, lumbosacral region
CPT/HCPCS: 72148

== ENCOUNTER 2020-06-11 14:18 | Outpatient (RCR) | payer MEDICARE, OTHER | END 2020-06-24 14:10 | disposition home or self-care (01) | PROVIDERS: ATTEND Family Medicine | DX: M51.25 Other intervertebral disc displacement, thoracolumbar region (principal); M51.26 Other intervertebral disc displacement, lumbar region; M48.061 Spinal stenosis, lumbar region without neurogenic claudication ==

== ENCOUNTER → 2020-06-25 | Outpatient (CLI) | payer MEDICARE, OTHER ==
--- NOTE | 2020-06-25 10:07 | Diagnostic Imaging Report ---
INDICATION: Postmenopausal. COMPARISON: None. FINDINGS: The bone mineral density of the spine, hips and femoral necks was measured. The total T-score for the spine is -2.8. The total T-score for the left hip is -2.4 and for the right hip -2.6. The T-score for the left femoral neck is -2.7 and for the right femoral neck -2.9. AP Spine L1-L4: [BMD (g/cm2): 0.861] [T-Score: -2.8] [Z-Score: -2.3] [BMD Previous: NA] [BMD % Change: NA] LT Hip Neck: [BMD (g/cm2): 0.665] [T-Score: -2.7] [Z-Score: -1.7] LT Hip Total: [BMD (g/cm2):0.707] [T-Score:-2.4] [Z-Score: -1.7] [BMD Previous: NA] [BMD % Change: NA] RT Hip Neck: [BMD (g/cm2):0.636] [T-Score:-2.9] [Z-Score:-1.9] RT Hip Total: [BMD (g/cm2):0.677] [T-score:-2.6] [Z-Score:-2.0] [BMD Previous:NA] [BMD % Change:NA] *Indicates significant change from prior examination based on 95% confidence level. World Health Organization criteria for BMD interpretation classify patients as Normal (T-score at or above -1.0), Osteopenic (T-score between -1.0 and -2.5) or Osteoporotic (T-score at or below -2.5). LIMITATIONS AND MODIFICATION: None. FRACTURE RISK (FRAX SCORE): The ten year probability of (%): Major Osteoporotic Fracture: [22.8] Hip Fracture: [6.5] IMPRESSION: 1. 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 There is also borderline osteoporosis of the total left hip. 2. See below National Osteoporosis Foundation guidelines on when to potentially initiate pharmacologic therapy. Based on the National Osteoporosis Foundation Guidelines, pharmacologic treatment should be initiated in any of the following, unless clinical conditions suggest otherwise: * Any patient with prior fragility fracture of the hip or vertebrae. A spine fracture indicates 5X risk for subsequent spine fracture and 2X risk for subsequent hip fracture. * Osteoporosis (T-score <-2.5). * Postmenopausal women and men age 50 and older with low bone mass/osteopenia (T-score between -1.0 and -2.5) by DXA and 10-year major osteoporotic fracture greater than 20% or a 10-year probability of hip fracture greater than 3%. These fracture risks are supplied above in the FRAX score, if applicable. * Clinician judgement and/or patient preferences may indicate treatment for people with 10-year fracture probabilities above or below these levels. Dictated by: Dictated on workstation # [id number]
== END ==
LOC: RAD 09:30
PROVIDERS: ATTEND Nurse Practitioner Family
DX: M81.0 Age-related osteoporosis without current pathological fracture (principal); Z78.0 Asymptomatic menopausal state
CPT/HCPCS: 77080

== ENCOUNTER 2020-08-12 09:17 | Outpatient (CLI) | payer MEDICARE, OTHER ==
[~2020-08-12 09:17] MED LIST changes: +ERGO1250 PO
[2020-08-12 09:57] VITALS: BP 178/91
[2020-08-12] MEDS ORDERED: DENOSUMAB 60 MG/1 ML (PROLIA) SQ SCH (10:00)
== END 2020-08-12 11:07 | disposition home or self-care (01) ==
LOC: SDC 09:17
PROVIDERS: ATTEND Family Medicine
DX: M81.0 Age-related osteoporosis without current pathological fracture (principal)
CPT/HCPCS: 96372

== ENCOUNTER → 2020-12-13 | Outpatient (CLI) | payer MEDICARE, OTHER ==
--- NOTE | 2020-12-13 10:09 | Diagnostic Imaging Report ---
CT ABD/PELVIS WO(KIDNEY STONE) TECHNIQUE: Unenhanced CT imaging of the abdomen and pelvis was performed. 2-D reformats are created and submitted for interpretation. Automatic exposure controls were utilized to optimize patient dose. INDICATION: Back pain and hematuria. COMPARISON: CT abdomen and pelvis of 12/07/2014 FINDINGS: Evaluation of the abdominal viscera is mildly limited without contrast. Lower chest: The lung bases are clear. No pericardial or pleural effusion. Peritoneum: No free intraperitoneal air or fluid. Liver and biliary system: Unenhanced liver is normal. Cholecystectomy. No biliary duct dilatation. Spleen and Pancreas: Spleen is normal. Unenhanced pancreas is grossly normal. Adrenals: Normal. tract: No renal or ureteral calculi. No obstructive uropathy. Hysterectomy. No adnexal mass. GI tract: Status post gastric lap band is normally positioned. The catheter tubing is intact with the port located in the subcutaneous fat of the right lower abdomen. No bowel obstruction. No pericolonic inflammatory changes. Appendix is not seen. Vasculature and Lymph nodes: Normal caliber aorta. No abdominal or pelvic lymphadenopathy. Musculoskeletal: No concerning osseous lesion. IMPRESSION: 1. No urinary tract calculi or obstructive uropathy. 2. Well-positioned gastric lap band. 3. No bowel obstruction, colitis or diverticulitis. Dictated by: Dictated on workstation # [id number]
== END ==
LOC: RAD 09:00
PROVIDERS: ATTEND Nurse Practitioner Family
DX: R31.9 Hematuria, unspecified (principal); M54.9 Dorsalgia, unspecified; Z90.49 Acquired absence of other specified parts of digestive tract; Z98.84 Bariatric surgery status
CPT/HCPCS: 74176

== ENCOUNTER 2021-02-13 09:23 | Outpatient (CLI) | payer MEDICARE, OTHER ==
[~2021-02-13 09:23] MED LIST changes: +CYCL10TA25 PO; -CYCL10TA9 PO; -GUAI600T28 PO; +GUAI600T99 PO; -LEVO500T80 PO; +LEVO500T81 PO; +MONT-40 PO; -MONT10TA32 PO; +POTA-169 PO; -POTA20TA8 PO
[2021-02-13] MEDS ORDERED: DENOSUMAB 60 MG/1 ML (PROLIA) SQ SCH (10:00)
[2021-02-13 10:11] VITALS: BP 139/66
== END 2021-02-13 10:11 | disposition home or self-care (01) ==
LOC: SDC 09:23
PROVIDERS: ATTEND Family Medicine
DX: M81.0 Age-related osteoporosis without current pathological fracture (principal)
CPT/HCPCS: 96372

== ENCOUNTER → 2021-02-24 | Outpatient (CLI) | payer MEDICARE, OTHER | LOC: LABNPT 08:00 | PROVIDERS: ATTEND Family Medicine | DX: R51.9 Headache, unspecified (principal); Z20.822 Contact with and (suspected) exposure to COVID-19 | CPT/HCPCS: 87635 ==

== ENCOUNTER → 2021-02-27 | Outpatient (CLI) | payer MEDICARE, OTHER | LOC: LABNPT 08:31 | PROVIDERS: ATTEND Family Medicine | DX: R05.9 Cough, unspecified (principal); R50.9 Fever, unspecified; Z20.822 Contact with and (suspected) exposure to COVID-19 | CPT/HCPCS: 87635 ==

== ENCOUNTER 2021-06-02 15:05 | Outpatient (CLI) | payer MEDICARE, OTHER ==
[~2021-06-02] VITALS: Ht 163.8 cm; Wt 105.9 kg
[2021-06-02 15:15] VITALS: BP 130/79
[2021-06-02] MEDS ORDERED: NS IV 1000 ML 1,000 ML ONE (15:37)
[2021-06-02] MEDS ORDERED: NS IV 1000 ML 1,000 ML IV ONE (15:45)
== END 2021-06-02 16:48 | disposition home or self-care (01) ==
LOC: SDC 15:05 → EDSTATUS 15:05 → SDC 16:48
PROVIDERS: ATTEND Nurse Practitioner Family
DX: E86.0 Dehydration (principal)
CPT/HCPCS: 96360

== ENCOUNTER → 2021-06-24 | Outpatient (CLI) | payer MEDICARE, OTHER ==
--- NOTE | 2021-06-24 11:19 | Diagnostic Imaging Report ---
INDICATION: Right hip pain COMPARISON: 05/13/2020 FINDINGS: 2 views right hip demonstrate progressive moderate degenerative joint disease. There was no fracture or dislocation. No osseous lesion. IMPRESSION: Worsening degenerative joint disease. Dictated by: Dictated on workstation # [id number]
== END ==
LOC: RAD 10:27
PROVIDERS: ATTEND Nurse Practitioner Family
DX: M16.11 Unilateral primary osteoarthritis, right hip (principal)
CPT/HCPCS: 73502

== ENCOUNTER → 2022-03-10 | Outpatient (CLI) | payer MEDICARE, OTHER ==
[~2022-03-10] MED LIST changes: +ALBU8.5H6 IH; +CATHETER FLUSH 10 ML SYR IVP PRN; +GUAI-912 PO; -GUAI600T99 PO; +HOLD METFORMIN - RECEIVED CONTRAST 20 ML VIAL IV SCH; +IOHEXOL 350 MG/ML 100 ML (OMNIPAQUE 350) VIAL IV ONE; +LEVO-55 PO; -LEVO500T81 PO; +NS 100 ML (IVPB) BAG IV ONE; -OLME40TA12 PO; +OLME40TA70 PO; -PLTR10OP OD; +POLY10DR31 OD; +POTA10CA44 PO; +REGADENOSON 0.4 MG/5 ML SYR (LEXISCAN) IV ONE; -RT-ALBUINH IH
[2022-03-10 10:23] LABS: CREATININE SERUM 0.94 MG/DL (0.60-1.30)
--- NOTE | 2022-03-10 11:48 | Diagnostic Imaging Report ---
PROCEDURE: CT angiography of the head with and without contrast. TECHNIQUE: Noncontrast CT of the head was obtained. Subsequently, after intravenous administration of contrast, thin section axial CT angiography of the head was performed. Source data was reformatted into multiple MIP reformats. Delayed postcontrast acquisition of the head was also acquired. Auto Exposure Controls were utilized during the CT exam to meet ALARA standards for radiation dose reduction. INDICATION: Abnormal gait. Dizziness. Headaches. COMPARISON: 12/29/2017. FINDINGS: CTA brain: Atherosclerotic plaque is seen in the kwon of the intracranial portion of the bilateral ICA without significant stenosis. No stenosis is seen in the bilateral anterior, middle, and posterior cerebral arteries. No evidence of aneurysm the [place]. In the posterior circulation, both of the vertebral arteries demonstrate normal opacification. Both the right and left PICA arteries are identified. The basilar artery is normal in course and caliber. The terminal branch vessels including the superior cerebellar arteries unremarkable. CT brain: No large acute territorial ischemia, mass, or hemorrhage. No midline shift or mass effect. The ventricles, cortical sulci, and basilar cisterns are patent and unremarkable. The calvarium is intact. The visualized paranasal sinuses are clear. IMPRESSION: 1. No evidence of intracranial aneurysm or significant stenosis. No large vessel occlusion. 2. No hemorrhage, mass, or evidence of territorial ischemia. Dictated by: Dictated on workstation # [id number]
[2022-03-10 12:39] VITALS: BP 142/80
--- NOTE | 2022-03-10 19:07 | STRESS TEST ---
DATE OF SERVICE: 03/10/2022 RESTING AND POST REGADENOSON TECHNETIUM-99M TETROFOSMIN SPECT CT IMAGING ORDERING PHYSICIAN: Dr. Buck. PRIMARY PHYSICIAN: Dr. Do. CLINICAL DIAGNOSIS: Status post coronary artery bypass surgery. Baseline images were carried out after injection of 11 mCi of technetium-99m tetrofosmin. This was followed by 0.4 mg of regadenoson and 30 mCi of technetium-99m tetrofosmin for stress imaging. The electrocardiogram showed sinus rhythm at baseline. It did not change significantly with the regadenoson infusion. The patient tolerated the procedure well. Review of images at rest and following stress does not indicate any distinct perfusion defects consistent with significant myocardial ischemia or infarction. Gated images showed normal global left ventricular systolic function, normal regional wall motion. Left ventricular ejection fraction is calculated to be 71%. CONCLUSIONS: 1. No evidence of any significant myocardial ischemia or infarction. 2. Normal regional wall motion. 3. Normal global left ventricular systolic function with a calculated ejection fraction of 71%. Job ID: [id number] DocumentID: [id number] Dictated Date: 03/10/2022 16:13:01 [employer] Seat [employer] Date: 03/10/2022 19:05:00 Dictated By: JUVE BUCK MD; MICHOACANO; FACP; FACC;
== END ==
LOC: RAD 09:51
PROVIDERS: ATTEND Internal Medicine Cardiovascular Disease
DX: R26.89 Other abnormalities of gait and mobility (principal); Z95.1 Presence of aortocoronary bypass graft
CPT/HCPCS: 70496; 78452; 82565; 84520; 93017; A9502; 36415

== ENCOUNTER → 2022-08-13 | Outpatient (CLI) | payer MEDICARE, OTHER ==
[~2022-08-13] MED LIST changes: -CATHETER FLUSH 10 ML SYR IVP PRN; -HOLD METFORMIN - RECEIVED CONTRAST 20 ML VIAL IV SCH; -IOHEXOL 350 MG/ML 100 ML (OMNIPAQUE 350) VIAL IV ONE; -NS 100 ML (IVPB) BAG IV ONE; +POLY10DR20 OD; -POLY10DR31 OD; +POTA-330 PO; -POTA-51 PO; -REGADENOSON 0.4 MG/5 ML SYR (LEXISCAN) IV ONE
--- NOTE | 2022-08-13 10:56 | Diagnostic Imaging Report ---
Indication: Routine screening. Comparison is made with prior mammograms from 05/01/2020 and 03/31/2019. 2-D and 3-D bilateral screening mammography was performed with CAD. Scattered fibroglandular densities are identified bilaterally. There are scattered benign-appearing parenchymal and vascular calcifications throughout both breasts. No spiculated mass or malignant-appearing microcalcifications are seen. Axillae are unremarkable. IMPRESSION: BI-RADS Category 2 No mammographic features suspicious for malignancy are identified. ACR BI-RADS Category 2: Benign findings. Result letter will be mailed to the patient. Note: At least 10% of breast cancer is not imaged by mammography. Dictated by: Dictated on workstation # [id number]
== END ==
LOC: RAD 07:30
PROVIDERS: ATTEND Physician Assistant
DX: Z12.31 Encounter for screening mammogram for malignant neoplasm of breast (principal); I10 Essential (primary) hypertension; E11.9 Type 2 diabetes mellitus without complications; G47.33 Obstructive sleep apnea (adult) (pediatric); I25.10 Atherosclerotic heart disease of native coronary artery without angina pectoris; F41.1 Generalized anxiety disorder
CPT/HCPCS: 77063; 77067